=== PATIENT | male | born 1960 | race Caucasian/White ===

== ENCOUNTER → 2019-01-06 12:50 | Outpatient (CLI) | payer BC, SELFPAY ==
[2018-12-02 09:51] VITALS: BMI 33.6
--- NOTE | 2019-01-06 12:53 | ECHOD_ITS ---
Reason For Study: SOB Procedure This was a 2D Doppler, Color Flow transthoracic echocardiogram. Exam performed in department. Left Ventricle Moderate concentric left ventricular hypertrophy. The estimated ejection fraction is 65 %. Stage 2 diastolic dysfunction. No regional wall motion abnormalities noted. Right Ventricle Normal size and thickness. Normal systolic function. Atria The left atrium is mildly enlarged. Normal right atrium. Normal atrial septum. Mitral Valve The mitral valve is structurally normal. No prolapse or stenosis seen. Tricuspid Valve Normal tricuspid valve. Unable to estimate RV systolic pressure due to insufficient tricuspid regurgitant envelope. Aortic Valve Trisinus/trileaflet aortic valve. Mild diffuse aortic valve thickening. Trivial aortic valve insufficiency. Pulmonic Valve Normal pulmonic valve. Trivial pulmonic valve insufficiency. Great Vessels Moderately dilated aortic root. Mild atherosclerosis of the aortic arch. Normal inferior vena cava. Inferior vena cava collapse with sniff. Pericardium/Pleural No pericardial effusion. MMode/2D Measurements & Calculations LVIDd: 4.9 cm IVSd: 1.5 cm Ao root diam: 5.1 cm LVIDs: 2.4 cm LVPWd: 1.4 cm RVDd: 3.6 cm FS: 51.5 % LAV(MOD-bp): 64.9 ml LVAd ap4: 34.2 cm2 SV(MOD-sp4): 76.7 ml LAV(MOD-bp) Indexed: 28.5 ml/m2 EDV(MOD-sp4): 107.5 ml LAV(MOD-sp2): 62.7 ml EDV(sp4-el): 110.6 ml LAV(MOD-sp4): 64.5 ml LVAs ap4: 16.5 cm2 ESV(MOD-sp4): 30.8 ml ESV(sp4-el): 31.2 ml EF(MOD-sp4): 71.4 % EF(sp4-el): 71.8 % SV(sp4-el): 79.4 ml LA A4 area: 22.3 cm2 LA dimension(2D): 3.6 cm RA A4 area: 19.5 cm2 Doppler Measurements & Calculations MV E max luis carlos: 97.6 cm/sec Lat Peak E' Luis Carlos: 13.6 cm/sec Med Peak E' Luis Carlos: 9.6 cm/sec MV A max luis carlos: 55.9 cm/sec E/E' lat: 7.2 E/E' med: 10.2 MV E/A: 1.7 Ao V2 max: 161.0 cm/sec AI max luis carlos: 521.4 cm/sec LV V1 max: 139.4 cm/sec Ao max P.4 mmHg AI max P.8 mmHg LV V1 max P.8 mmHg AI dec slope: 158.7 cm/sec2 AI P1/2t: 962.5 msec PA V2 max: 76.1 cm/sec Interpretation Summary The estimated ejection fraction is 65 %. Moderate concentric left ventricular hypertrophy. Stage 2 diastolic dysfunction. The left atrium is mildly enlarged. Unable to estimate RV systolic pressure due to insufficient tricuspid regurgitant envelope. Trivial aortic valve insufficiency. Moderately dilated aortic root. Compared to echo report dated 04/27/2014, LV function has remained the same, but aortic root has increased from 4.2 to 5.1 cm. Consider CTA to confirm. Ordering Physician: Moises Mills Referring Physician: Mundo Fierro M.D. Performed By: Dalia Ponce RDCS
== END ==
PROVIDERS: Family Provider Internal Medicine; PCP Internal Medicine; Referring Provider Internal Medicine Cardiovascular Disease; Visit Provider Internal Medicine Cardiovascular Disease
DX: R06.02 Shortness of breath (principal); R06.09 Other forms of dyspnea; G47.33 Obstructive sleep apnea (adult) (pediatric); E66.9 Obesity, unspecified; I47.1 Supraventricular tachycardia; I48.0 Paroxysmal atrial fibrillation
CPT/HCPCS: 93306

== ENCOUNTER → 2019-01-12 12:16 | Outpatient (CLI) | payer BC, SELFPAY ==
[2018-12-02 09:51] VITALS: BMI 33.6
--- NOTE | 2019-01-12 12:21 | STE_ITS ---
Reason For Study: Chest Pain; Dyspnea Stress Results Protocol: Blu Protocol Maximum Predicted HR: 161 bpm Target HR: 137 bpm % Maximum Predicted HR: 80 % DurationHeart Rate Stage (mm:ss) (bpm) BP Comment Baseline 59 158/88No Chest Pain Blu Protocol Stage I 3:00 94 160/84No Chest Pain; Moderate Dyspnea Blu Protocol Stage II 3:00 129 190/82No Chest Pain; Severe Dyspnea Recovery 78 156/82No Chest Pain; No Dyspnea Stress Duration: 6:00 mm:ss Maximum Stress HR: 129 bpm METS: 7 Baseline Echocardiogram Findings The estimated ejection fraction is 65 %. Stress Echo Wall motion Data Resting WM Intermediate WM Stress WM Resting Wall Motion Wall Motion Stress No regional wall motion No regional wall motion abnormalities noted. abnormalities noted. EKG Data The baseline ECG displays normal sinus rhythm. The patient exercised according to the regular Blu protocol for a total duration of 6:00. The maximum heart rate attained was 162 beats per minute. This was 100% of maximum predicted heart rate. The patient exercised into stage 2 of the Blu protocol. During stress, there were no ST or T wave changes noted to suggest ischemia. No clinical angina was noted. Interpretation Summary The estimated ejection fraction is 65 %. Normal, adequate, treadmill echocardiogram. Negative for ischemia by EKG and echocardiographic criteria. No anginal symptoms noted. Rare PACs and a self terminating bursts of narrow complex tachycardia during recovery. Below average exercise capacity for age. Test terminated due to dyspnea. Final LVEF is 75%. No complications. Ordering Physician: Moises Mills Referring Physician: Mundo Fierro Performed By: Cassidy Verduzco, NAZARIO, RVT
== END ==
LOC: CVS 12:17
PROVIDERS: Family Provider Internal Medicine; PCP Internal Medicine; Referring Provider Internal Medicine Cardiovascular Disease; Visit Provider Internal Medicine Cardiovascular Disease
DX: I10 Essential (primary) hypertension (principal); F12.10 Cannabis abuse, uncomplicated; I48.0 Paroxysmal atrial fibrillation; R06.09 Other forms of dyspnea; Z72.0 Tobacco use
CPT/HCPCS: 93017; 93350

== ENCOUNTER → 2019-01-20 13:23 | Outpatient (CLI) | payer BC, SELFPAY ==
[2018-12-02 09:51] VITALS: BMI 33.6
--- NOTE | 2019-01-20 13:30 | CT_ITS ---
STUDY: CTA CHEST REASON FOR EXAM: Male, 59 years old. Aortic aneurysm. RADIATION DOSAGE (If Supplied By Facility): CTDIvol = ( 15.04 ) mGy, DLP = ( 603.18 ) mGycm TECHNIQUE: The examination was performed with the intravenous administration of 75mL Isovue-370 . Post-processing of the angiographic images was performed, with multiplanar reformation and 3D reconstruction. Individualized dose optimization techniques were used for this CT. COMPARISON: None. FINDINGS: Normal enhancement of the main pulmonary artery and right and left pulmonary arteries. Normal enhancement of the bilateral peripheral pulmonary arteries. There is no demonstrated pulmonary embolism. There is aneurysmal dilatation of the ascending aorta. The transverse diameter of the ascending aorta measures 45 mm's. There is no demonstrated aortic dissection. There are calcifications of the coronary arteries. Normal mediastinum. Normal hilar regions. Normal visualized trachea and bronchi. The lungs are well expanded. There are fibrotic densities in the periphery of the upper lungs. Normal pleura. Normal chest wall structures. There are degenerative changes of thoracic spine. Normal visualized upper abdomen. CT/CTA Chest W/WO Contrast IMPRESSION: Aneurysmal dilatation of the ascending aorta. Electronically Signed: Adam Che MD at 10:42 EDT , Service support ,
[2019-01-20 13:41] LABS: EGFR FINGERSTICK > 60.0000 mL/min (>60)
== END ==
LOC: CT 13:24
PROVIDERS: Family Provider Internal Medicine; PCP Internal Medicine; Referring Provider Internal Medicine Cardiovascular Disease; Visit Provider Internal Medicine Cardiovascular Disease
DX: I71.9 Aortic aneurysm of unspecified site, without rupture (principal)
CPT/HCPCS: 71275; Q9967; A4216

== ENCOUNTER 2019-01-24 12:04 | Emergency (ER) | payer BC, SELFPAY ==
[2018-12-02 09:51] VITALS: BMI 33.6
[2019-01-24 12:07] VITALS: BP 172/107; PULSE 57; RESP 13; TEMP 36.7; O2SAT 99; BMI 34.0
--- NOTE | 2019-01-24 12:19 | EKG12_ITS ---
Test Reason : CP Blood Pressure : / mmHG Vent. Rate : 058 BPM Atrial Rate : 058 BPM P-R Int : 168 ms QRS Dur : 106 ms QT Int : 426 ms P-R-T Axes : 058 066 074 degrees QTc Int : 418 ms Sinus bradycardia Otherwise normal ECG Confirmed by TI MILLS ([id number]), book editor FELIBERTO VIZCARRA ([id number]) on 01/31/2019 9:08:21 AM Referred By: Ti Mills Confirmed By:TI MILLS
--- NOTE | 2019-01-24 12:20 | RAD_ITS ---
STUDY: X-RAY CHEST REASON FOR EXAM: Male, 59 years old. Cough. Chest pain. TECHNIQUE: PA and lateral views of the chest. COMPARISON: Comparison is made with prior examination dated August 02, 2015. FINDINGS: EKG electrodes are seen. Scattered calcified granulomas. Hyperinflation. There is no demonstrated pleural abnormality. Normal size heart. Normal mediastinum and hillary. Normal visualized pulmonary arteries. There is atherosclerotic tortuosity of the aortic arch and descending thoracic aorta. There is demineralization of the osseous structures. Normal visualized ribs, clavicles, and shoulders. There is no demonstrated abnormality of the visualized soft tissue structures of the upper abdomen. RAD/Chest PA and Lateral IMPRESSION: Hyperinflation. No acute abnormality is seen. Electronically Signed: Ken Krishna, at 13:13 EDT , Service support ,
[2019-01-24] MEDS: Morphine 4 MG/ML Syringe IV (12:32)
[2019-01-24] MEDS: Ondansetron 4 MG/2 ML Vial IV (12:32)
[2019-01-24] MEDS: 0.9% Normal Saline 1,000 ML 1000 ML IV (12:33)
[2019-01-24] MEDS: Ipratropium/Albuterol Sulfate 3 ML AMPUL.NEB INHALATION (12:34)
[2019-01-24 12:36] VITALS: PULSE 66; RESP 0
[2019-01-24 12:38] LABS: Absolute Lymphocyte Count 1.64 X10^3/uL (0.83-4.51); Absolute Neutrophil Count 7.7 X10^3/uL (2.0-7.7); Basophil# 0.05 X10^3/uL; Basophil% 0.5 % (0-1); Eosinophil# 0.12 X10^3/uL; Eosinophils% 1.2 % (0-5); Hematocrit 49.1 % (40-54); Hemoglobin 16.5 g/dL (13.0-16.5); Lymphocyte # 1.64 X10^3/ul (4.0); Lymphocyte % 15.9 % (19-41); Mean Corp Hgb Conc 33.6 g/dL (32-36); Mean Corpuscular Hgb 29.8 pg (27.0-32.0); Mean Corpuscular Volume 88.8 fL (80-94); Mean Platelet Vol. 9.7 fl (6.2-12.0); Monocyte# 0.71 X10^3/uL; Monocyte% 6.9 % (0-10); NRBC Flagged by Analyzer 0 % (0-5); Neutrophil % 74.7 % (47-70); Platelet Count 208 K/mm3 (150-450); RBC Distribution Width CV 12.9 % (11.6-14.6); RBC Distribution Width SD 42.4 fl (35.1-43.9); Red Blood Count 5.53 M/mm3 (4.6-6.2); White Blood Count 10.3 K/mm3 (4.4-11.0)
[2019-01-24 12:52] LABS: AST(SGOT) 16 U/L (15-37); Alanine Aminotransfer ALT/SGPT 25 U/L (16-61); Alkaline Phosphatase 89 U/L (45-117); Anion Gap 4 (5-15); BUN 18 mg/dL (7-18); BUN/Creat Ratio 16.2 RATIO (10-20); Calcium,Total 9.2 mg/dL (8.5-10.1); Chloride 106 mmol/L (98-107); Creatinine, Serum 1.11 mg/dL (0.70-1.30); EST Glomerular Filtration Rate 72 mL/min (>60); Est Glom Filt Rate - Afr Amer 87 mL/min (>60); Estimated Creatinine Clearance 77.68 ml/min; Globulin 4.1 g/dL (2.2-4.2); Glucose 100 mg/dL (74-106); Potassium 4.3 mmol/L (3.5-5.1); Protein, Total 8.1 g/dL (6.4-8.2); Sodium Level 139 mmol/L (136-145)
[2019-01-24 13:41] VITALS: BP 173/96; PULSE 60; O2SAT 91
[2019-01-24 14:06] VITALS: BP 164/102; PULSE 70; O2SAT 90
[2019-01-24] MEDS: HYDROcodone Bitartrate/Apap 5/325 Tablet PO (14:13)
[2019-01-24 15:15] VITALS: BP 171/105; PULSE 68; O2SAT 94
--- NOTE | 2019-01-24 15:58 | ED.VIS.GEN ---
History of Present Illness Chief Complaint: Chest Pain Informant: Patient Onset: Yesterday Context: Gradual Onset Timing: Continuous Current Severity: Moderate Maximum Severity: Moderate Narrative: The patient presents to the emergency department with chest pain. He states since yesterday, he had a sharp, stabbing sensation in his left chest. It does not radiate anywhere. He has had a scant cough. Patient states that he has chronic pain in his back and in his right side. He states that he had a nephrectomy years ago for an 8 pound mass on his kidney. He states that he still chronic pain since then. He states however, this never been on the left side. Patient is currently following with Dr. Mills he has had significant outpatient work-up for chest pain. He had echocardiogram, stress test, and CTA all within the past month. He does have a small thoracic aortic aneurysm that is currently being followed. He denies any sudden change in the pain. He denies any fevers or chills. Prior similar symptoms: Yes Recent Illness/Hospitalization: Yes Past Medical History - Allergies and Home Meds Allergies/Adverse Reactions: Allergies aspirin Allergy (Verified 01/24/19 12:12) GI upset, hives Penicillins Allergy (Verified 01/24/19 12:12) GI upset, hives Primary Care Physician: Mundo Fierro MD [Primary Care Provider] - Prior records reviewed: Yes Surgical History: cholecystectomy, - - nephrectomy. Smoking Status: Current every day smoker - Family History Maternal Family History: Family History (Last Reviewed 12/01/18 @ 09:43 by Luana Barth) Mother CAD (coronary artery disease) Father CAD (coronary artery disease) Family History: Reports: No pertinent history Paternal Family History: Family History (Last Reviewed 12/01/18 @ 09:43 by Luana Barth) Mother CAD (coronary artery disease) Father CAD (coronary artery disease) Family History: Reports: No pertinent history Review of Systems General: Denies: Chills, Fever, Sweats Eyes: Denies: Visual changes - bilaterally, Diplopia ENT: Denies: Rhinorrhea, Sore throat Cardiovascular: Reports: Chest pain. Denies: Palpitations Respiratory: Reports: Cough. Denies: Dyspnea, Dyspnea on exertion Gastrointestinal: Denies: Abdominal pain, Nausea, Vomiting, Diarrhea, Melena, Hematochezia Genitourinary: Denies: Dysuria, Hematuria, Frequency Musculoskeletal: Denies: Back pain, Extremity Pain Skin: Denies: Rash, Wounds Neurological: Denies: Headache, Weakness, Numbness Physical Exam Vital Signs/Narrative: Vital Signs Temp Pulse Resp BP Pulse Ox 01/24/19 15:15 68 171/105 H 94 01/24/19 14:06 70 164/102 H 90 01/24/19 13:41 60 173/96 H 91 01/24/19 12:36 66 0 L 01/24/19 12:07 98.0 F 57 L 13 172/107 H 99 Inital Vital Signs reviewed: Yes General: Well nourished, Well developed, No Acute Distress Head: Normocephalic, Atraumatic Eyes: Perrl, EOMI ENT: Moist mucous membranes, No rhinorrhea Neck: Supple, Nontender Cardiovascular: Regular rate, Regular rhythm, No murmurs Respiratory: No distress, Wheezing, Chest tenderness Abdomen: Soft, Nontender, Nondistended, Normal bowel sounds Back: Nontender, Normal Inspection Extremities: Nontender, No edema Skin: Normal color, No rash Neurological: Alert, Oriented x3, Cranial nerves II-XII grossly intact, Normal Strength, Normal Sensation Psychological: Normal affect, Normal Mood Diagnostic/Tx/Re-eval Chest X-Ray - ED: 2 View, Normal, Heart, Lungs, Mediastinum, Bony Structures Clinical Impression(s) from Imaging Studies Chest X-Ray 01/24/19 12:20 IMPRESSION: Hyperinflation. No acute abnormality is seen. Electronically Signed: Ken Krishna, at 13:13 EDT , Service support , Abnormal Lab Results 01/24/19 01/24/19 01/24/19 12:15 12:15 15:08 WBC 10.3 RBC 5.53 Hgb 16.5 Hct 49.1 MCV 88.8 MCH 29.8 MCHC 33.6 RDW Std Deviation 42.4 RDW Coeff of Calli 12.9 Plt Count 208 MPV 9.7 Immature Gran % (Auto) 0.800 Neut % (Auto) 74.7 H Lymph % (Auto) 15.9 L [place] % (Auto) 6.9 Eos % (Auto) 1.2 Baso % (Auto) 0.5 Absolute Neuts (auto) 7.7 Absolute Lymphs (auto) 1.64 Nucleated RBC % 0 Sodium 139 Potassium 4.3 Chloride 106 Carbon Dioxide 29.0 Anion Gap 4 L BUN 18 Creatinine 1.11 Estim Creat Clear Calc 77.68 Est GFR (MDRD) Af Amer 87 Est GFR (MDRD) Non-Af 72 BUN/Creatinine Ratio 16.2 Glucose 100 Calcium 9.2 Total Bilirubin 0.40 AST 16 ALT 25 Alkaline Phosphatase 89 Troponin I < 0.015 < 0.015 Total Protein 8.1 Albumin 4.0 Globulin 4.1 Albumin/Globulin Ratio 1.0 - Rhythm Strip Rhythm Strip: Sinus Rhythm Rate: 80 Ectopy: None - EKG Initial EKG Interpretation: Sinus Rhythm, No Acute Injury Pattern Prior: Unchanged - Medical Decision Making The patient's pain is reproducible. He had a recent negative stress test. He did have wheezing in all lung loera. He was given nebulized breathing treatments with improvement of his aeration. EKG shows no evidence of acute ischemia. Initial cardiac enzymes were negative. The patient was given morphine with really no improvement. He was given [place] and was resting comfortably. Chest x-ray shows no evidence of volume overload or large cardiac silhouette. I did review the patient's CTA from 6 days ago. This does demonstrate his thoracic aneurysm, but no dissection or thrombus. My suspicion is that this is noncardiac in nature. The patient did have recent negative stress test within the past month. He denies any exertional component to his pain. Repeat cardiac enzymes were obtained and continued to be negative. I am going to treat the patient with prednisone and a muscle relaxer. He will be discharged home. Impression 1. Cough 2. Chest wall pain ED Disposition - Plan for ED Patient: Instructions: CHEST PAIN, NonCardiac Prescriptions: Prednisone [Deltasone] 60 mg PO DAILY #15 tab Prescription Printed cycloBENZAPRine HCl [Flexeril] 10 mg PO TID PRN #20 tab PRN Reason: Muscle Spasm Prescription Printed Referrals: Mundo Fierro MD [Primary Care Provider] -
[2019-01-24 16:07] VITALS: BP 161/98; PULSE 68; RESP 17; O2SAT 95
--- NOTE | 2019-01-24 16:07 | ED.RN ---
IV DC'ED, CATHETER INTACT, SMALL GAUZE DRESSING PLACED. DISCHARGE INSTRUCTIONS GIVEN TO AND REVIEWED WITH PATIENT, PATIENT DENIES QUESTIONS OR CONCERNS AND VOICES UNDERSTANDING OF DISCHARGE INSTRUCTIONS. PT AMBULATES OUT OF ROOM WITHOUT DIFFICULTY.
== END 2019-01-24 16:08 | disposition home or self-care (01) ==
PROVIDERS: Emergency Provider Emergency Medicine; Family Provider Internal Medicine; PCP Internal Medicine
DX: R05 Cough (principal); R07.89 Other chest pain; F17.200 Nicotine dependence, unspecified, uncomplicated; Z90.5 Acquired absence of kidney
CPT/HCPCS: 71046; 80053; 84484; 85025; 93005; 94640; 96361; 96374; 96375; 99285; J2405

== ENCOUNTER 2019-11-13 13:27 | Emergency (ER) | payer BC, SELFPAY ==
[2019-11-13 13:29] VITALS: BP 142/84; PULSE 64; PULSE 65; RESP 17; TEMP 36.2; O2SAT 95; BMI 33.5
--- NOTE | 2019-11-13 13:43 | RAD_ITS ---
STUDY: X-RAY - LUMBAR SPINE REASON FOR EXAM: Male, 59 years old. fell off a swing yesterday, landed on his tailbone -- pain TECHNIQUE: 3 view(s) of the lumbar spine were obtained. COMPARISON: None FINDINGS: Normal lumbar lordosis. There is no substantial scoliosis. There is a normal alignment of the vertebrae. There is diffuse demineralization with multi-level endplate spondylosis. Normal disc space heights. There is no demonstrated fracture. Facet arthropathy in the lower lumbar spine noted. There are surgical clips of the abdomen and pelvis. There is atherosclerosis of the lower abdominal aorta and iliac arteries. RAD/Lumbar Spine 2 or 3 Views IMPRESSION: No compression fracture. Electronically Signed: Randy Garcia MD (Brooks) at 14:31 EDT , Service support ,
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
[2019-11-13] MEDS: Ondansetron 4 MG/2 ML Vial IV (13:55)
[2019-11-13] MEDS: morphine 8 MG/ML Syringe IV (13:55)
[2019-11-13 14:45] VITALS: BP 164/87; PULSE 69; RESP 22; TEMP 36.7; O2SAT 94
--- NOTE | 2019-11-13 14:46 | EKG12_ITS ---
Test Reason : CP Blood Pressure : / mmHG Vent. Rate : 065 BPM Atrial Rate : 065 BPM P-R Int : 184 ms QRS Dur : 110 ms QT Int : 432 ms P-R-T Axes : 056 063 064 degrees QTc Int : 449 ms Normal sinus rhythm Normal ECG Confirmed by TIMOTEO HARDY, AMANDA ([id number]), editorial intern IVET HALE ([id number]) on 11/14/2019 2:45:10 PM Referred By: CG/UG Confirmed By:AMANDA MAHMOOD MD
--- NOTE | 2019-11-13 14:49 | CT_ITS ---
STUDY: CTA CHEST REASON FOR EXAM: Male, 59 years old. ACUTE CHEST PAIN, RT NEPHRECTOMY, CHOLECYSTECTOMY RADIATION DOSAGE (If Supplied By Facility): CTDIvol = ( 19.65 ) mGy, DLP = ( 544.95 ) mGycm TECHNIQUE: The examination was performed with the intravenous administration of IV 100mL Isovue-370. Post-processing of the angiographic images was performed, with multiplanar reformation and 3D reconstruction. Individualized dose optimization techniques were used for this CT. COMPARISON: None. FINDINGS: Normal enhancement of the main pulmonary artery and right and left pulmonary arteries. Normal enhancement of the bilateral peripheral pulmonary arteries. There is no demonstrated pulmonary embolism. There is ectasia of the ascending thoracic aorta with axial diameter measuring up to 4.4 cm. There is no demonstrated aortic dissection. Normal heart and pericardium. There are calcifications of the coronary arteries. Normal mediastinum. Normal hilar regions. Normal visualized trachea and bronchi. There are patchy groundglass and reticular opacities in the bilateral lower lungs, dependent. There are mild emphysematous changes. Normal pleura. Normal chest wall structures. Normal osseous structures. Normal visualized upper abdomen. CT/CTA Chest W/WO Contrast IMPRESSION: 1. No central or segmental pulmonary embolism. 2. Bilateral lower lobe dependent groundglass opacity and reticulation may suggest atelectasis versus pneumonitis/edema. Electronically Signed: Randy Garcia MD (Brooks) at 16:04 EDT , Service support ,
[2019-11-13 15:08] LABS: Absolute Lymphocyte Count 2.55 X10^3/uL (0.83-4.51); Absolute Neutrophil Count 9.4 X10^3/uL (2.0-7.7); Basophil# 0.04 X10^3/uL; Basophil% 0.3 % (0-1); Eosinophil# 0.17 X10^3/uL; Eosinophils% 1.3 % (0-5); Hematocrit 46.5 % (40-54); Hemoglobin 15.7 g/dL (13.0-16.5); Lymphocyte # 2.55 X10^3/ul (4.0); Lymphocyte % 19.1 % (19-41); Mean Corp Hgb Conc 33.8 g/dL (32-36); Mean Corpuscular Volume 88.7 fL (80-94); Monocyte# 1.17 X10^3/uL; Monocyte% 8.8 % (0-10); NRBC Flagged by Analyzer 0 % (0-5); Neutrophil # 9.36 X10^3/uL (2.7-7.7); Platelet Count 214 K/mm3 (150-450); RBC Distribution Width CV 13.4 % (11.6-14.6); RBC Distribution Width SD 43.5 fl (35.1-43.9); Red Blood Count 5.24 M/mm3 (4.6-6.2); White Blood Count 13.4 K/mm3 (4.4-11.0)
[2019-11-13 15:35] LABS: Anion Gap 7 (5-15); BUN 12 mg/dL (7-18); BUN/Creat Ratio 11.9 RATIO (10-20); Calcium,Total 8.9 mg/dL (8.5-10.1); Chloride 105 mmol/L (98-107); Creatinine, Serum 1.01 mg/dL (0.70-1.30); EST Glomerular Filtration Rate 80 mL/min (>60); Est Glom Filt Rate - Afr Amer 97 mL/min (>60); Estimated Creatinine Clearance 85.37 ml/min; Glucose 109 mg/dL (74-106); Potassium 4.1 mmol/L (3.5-5.1); Sodium Level 139 mmol/L (136-145)
[2019-11-13 16:52] VITALS: BP 127/80; PULSE 61; RESP 19; O2SAT 96
[2019-11-13 17:23] LABS: Lactic Acid 0.9 mmol/L (0.4-1.9)
[2019-11-13 17:32] LABS: Probe Check PASS; Specimen Processing Control PASS
--- NOTE | 2019-11-13 17:36 | ED.RN ---
Patient ambulated around room with a portable pulse ox machine. Patient's pulse ox was 93 to 94%.
== END 2019-11-13 18:02 | disposition home or self-care (01) ==
PROVIDERS: Emergency Provider Emergency Medicine; PCP Internal Medicine
DX: R91.8 Other nonspecific abnormal finding of lung field (principal); M54.5 Low back pain; R20.0 Anesthesia of skin; W17.89XA Other fall from one level to another, initial encounter; Y93.9 Activity, unspecified; Y92.9 Unspecified place or not applicable; E66.9 Obesity, unspecified; I10 Essential (primary) hypertension; I48.0 Paroxysmal atrial fibrillation; I47.1 Supraventricular tachycardia; G47.33 Obstructive sleep apnea (adult) (pediatric); Z86.73 Personal history of transient ischemic attack (TIA), and cerebral infarction without residual deficits; Z90.5 Acquired absence of kidney; Z79.899 Other long term (current) drug therapy; F17.200 Nicotine dependence, unspecified, uncomplicated
CPT/HCPCS: 71275; 72100; 80048; 83605; 84484; 85025; 87040; 87633; 87635; 93005; 94799; 96374; 96375; 99285; Q9967; A4216; J2405; U0003

== ENCOUNTER → 2020-07-19 | Outpatient (CLI) | payer BC, SELFPAY ==
[2020-07-19 09:45] LABS: Pathologist Comment May follow
[2020-07-19 12:17] LABS: RBC /Synovial Fluid 0.031 10^6/uL (0); Synovial Fld Mononuclear WBC % 50.5 %; Synovial Fld Polynuclear WBC # 0.175 10^3/uL; Synovial Fld Polynuclear WBC % 49.5 %
[2020-07-19 12:18] LABS: AUTO B FLUID DILUENT BKGD CT WBC <0.1 RBC <0.01 (W<.1,R<.01); Appearance /Synovial Fluid Sl Cl (CLEAR); Color / Synovial Fluid Red (Pale Yellow); Source / Synovial Fluid LEFT ELBOW; Source- Body Fluid SYNOVIAL
[2020-07-19 12:54] LABS: Body Fluid QC Type(s) BF1Q,BF2Q; Lymph 18 %; Monocyte /Synovial Fluid 32 %; Neutrophil 50 % (0-25)
[2020-07-20 12:40] LABS: Pathologist Review Reviewed
== END | disposition home or self-care (01) ==
LOC: LABSPEC 09:34
PROVIDERS: PCP Internal Medicine; Referring Provider Physician Assistant; Visit Provider Physician Assistant
DX: M70.22 Olecranon bursitis, left elbow (principal)
CPT/HCPCS: 87015; 87070; 87075; 87101; 87116; 87205; 87206; 89050; 89051; 89060

== ENCOUNTER 2020-08-25 10:23 | Emergency (ER) | payer BC, SELFPAY ==
[2020-08-25 10:24] VITALS: BP 173/93; PULSE 78; RESP 20; TEMP 36.8; O2SAT 99; BMI 33.7
--- NOTE | 2020-08-25 10:46 | EKG12_ITS ---
Test Reason : Blood Pressure : / mmHG Vent. Rate : 062 BPM Atrial Rate : 062 BPM P-R Int : 178 ms QRS Dur : 110 ms QT Int : 406 ms P-R-T Axes : 051 055 067 degrees QTc Int : 412 ms Normal sinus rhythm Normal ECG Confirmed by AMANDA MAHMOOD MD ([id number]), associate editor FELIBERTO VIZCARRA ([id number]) on 08/28/2020 1:47:05 PM Referred By: RHINA Confirmed By:AMANDA MAHMOOD MD
--- NOTE | 2020-08-25 10:47 | EX.ED.DYSGE1 ---
HPI History of Present Illness Chief Complaint: Hypertension Informant: patient Onset/Context/Timing Onset: Days (3) Context: Gradual Onset Timing: Intermittent Quality - All: similar prior headaches and achy/aching Location: Left side of head and retro-orbital at times Current Severity: Moderate Maximum Severity: Moderate Worsened by: Blood pressure being up Relieved by: Blood pressure being down Associated Symptoms Associated Symptoms: Chest pain left side Narrative Narrative: Patient states he takes Procardia for blood pressure has been compliant with it with no changes recently, and has been dealing with blood pressure fluctuations for 21 years along with the same symptoms that he presented with today, which include left-sided chest pain and a left-sided headache. He denies any shortness of breath, syncope or near syncope, focal neurologic symptoms, vomiting, vision changes. He states over the last 3 days he has been having the symptoms and increased blood pressure in the 170s systolic, and he attributes this to lots of increased stress lately. He states he gets stressed and aggravated very easily, which is apparent during the interview, and just getting the patient to describe some of his medical history and the symptoms that he presenting with this morning. He states as a result, this has caused his blood pressure to increase over the past couple of decades giving him the symptoms, and he is presenting for treatment at this time. He states he has a history of a right nephrectomy because it had a mass, when asked if he was on lisinopril he states he refuses to go on anything that may mess with his kidney. Of note, the patient describes his chest discomfort as heart pain, and swelling of just the outside of my heart. He states he has a history of this as well as thoracic aortic aneurysm, but no coronary disease or stents that he knows of, but this is the reason that his chest is currently hurting. He states this is all related to my blood pressure and that it has happened for the last 21 years. [facility] Medical History Alcohol abuse Chronic back pain CVA (cerebral vascular accident) Dyspnea on exertion H/O unilateral nephrectomy Hypertension Marijuana abuse Nicotine abuse Obesity (BMI 30.0-34.9) Obstructive sleep apnea Paroxysmal atrial fibrillation Paroxysmal supraventricular tachycardia Shortness of breath Home Medications omega-3 fatty acids 1,000 mg capsule 1,000 mg PO QDAY 06/08/17 [History Last Taken Unknown] super beta prostate 800 mg PO DAILY 06/08/17 [History Last Taken Unknown] diltiazem HCl 240 mg PO QHS 11/13/19 [History Last Taken Unknown] gabapentin 300 mg PO TID 11/13/19 [History Last Taken Unknown] clonidine HCl 0.2 mg PO BID PRN #15 tab 08/25/20 [Rx Last Taken Unknown] Allergy/AdvReac Type Severity Reaction Status Date / Time aspirin Allergy GI upset, Verified 08/25/20 10:24 hives Penicillins Allergy GI upset, Verified 08/25/20 10:24 hives Family History Mother CAD (coronary artery disease) [place] in her 30's w/ coronary stents Father CAD (coronary artery disease) [place] in his 40's Surgical History History of back surgery Hx of cholecystectomy (~2014) Social History Smoking Status: Current every day smoker tobacco type: pipe alcohol intake: current alcohol intake frequency: a few times a week Alcohol type: beer substance use type: marijuana ROS ROS ED Constitutional Constitutional ED: Denies chills or fever(s) Eyes Eyes: Denies change in vision or diplopia ENT ENT ED: Denies rhinorrhea or sore throat Cardiovascular Cardiovascular: Reports as per HPI and chest pain; Denies palpitations Respiratory/Chest Respiratory/Chest: Denies cough or dyspnea Gastrointestinal Gastrointestinal: Denies abdominal pain, diarrhea, nausea or vomiting Genitourinary Genitourinary ED: Denies dysuria or hematuria Musculoskeletal Musculoskeletal: Reports back pain and other Details: Patient states his back pain is chronic, more in his right flank, ever since his nephrectomy, it is more when he stretches the scar tissue in that area, if he is sitting comfortably like he is now he does not have the pain. ; Denies neck pain Integumentary Denies abscess or rash Neurologic Neurologic: Denies confusion, paresthesias or weakness Psychiatric Psychiatric: Reports irritability; Denies anxiety or suicidal thoughts EXAM Physical Exam Const Vital Signs: 08/25/20 10:24 08/25/20 11:09 08/25/20 11:24 Temperature 98.3 F Temperature Source Temporal Pulse Rate 78 Respiratory Rate 20 H Respiratory Effort Normal Non-Labored Respiratory Pattern Normal Blood Pressure 173/93 H 154/62 H Blood Pressure Mean 119 92 Pulse Ox 99 Oxygen Delivery Method Room Air 08/25/20 12:55 Temperature Temperature Source Pulse Rate 50 L Respiratory Rate Respiratory Effort Respiratory Pattern Blood Pressure 110/72 Blood Pressure Mean 84 Pulse Ox Oxygen Delivery Method Positive well nourished and well developed General Appearance ED: well developed and NAD HEENT Reports moist mucous membranes normocephalic and atraumatic Teeth and Gingiva: poor dentition Eyes PERRL and EOMs intact bilaterally Neck full ROM and supple Resp normal respiratory effort and clear to auscultation bilaterally Cardio regular rate, regular rhythm and no murmurs GI non-tender and non-distended Auscultation: normoactive bowel sounds Palpation: soft Back/Spine no CVA tenderness General Back: other FROM Extremity normal to inspection General Extremety ED: Negative for edema, pulses abnormal or tenderness General Extremity: Negative for edema or pulses abnormal Neuro oriented x3, CN's II-XII intact bilaterally and no sensory deficits noted Sensorium / Orientation: awake and alert Motor Exam: strength 5/5 throughout Psych Activity / Motor Behavior: appropriate eye contact Mood & Affect: labile affect and other Easily irritated, becomes verbally loud and aggressive but able to be redirected Thought Process: normal thought process Thought Content: normal thought content Attention / Concentration: attention grossly intact Memory / Cognition: memory grossly intact Skin no rashes or lesions noted and no wounds MDM MDM MDM Narrative Medical decision making narrative: Work-up is unremarkable as I discussed with the patient, I am okay with his renal function. He was given clonidine 0.3 mg after we discussed options and he was okay with that, he is very paranoid about taking new medications because he is so worried about the one kidney that he has left. After an hour observation is blood pressure came down to 154/62. He said his headache was improved but still there, his chest is feeling a little sore. He was offered some Tylenol but again was wary about taking that because he has a history of stomach issues when he takes Tylenol and he is asking for it in liquid form which was given. His had felt better and on reevaluation his blood pressure is 110/72. He is comfortable going home and feeling better. 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 Lab Data Attestation: I reviewed the patient's lab results. Labs: Laboratory Results - last 24 hr 08/25/20 08/25/20 10:57 10:57 WBC 10.8 RBC 5.41 Hgb 16.0 Hct 48.4 MCV 89.5 MCH 29.6 MCHC 33.1 RDW Std Deviation 42.0 RDW Coeff of Calli 12.9 Plt Count 207 MPV 9.6 Immature Gran % (Auto) 0.800 Neut % (Auto) 70.1 H Lymph % (Auto) 21.2 [place] % (Auto) 6.3 Eos % (Auto) 1.3 Baso % (Auto) 0.3 Absolute Neuts (auto) 7.6 Absolute Lymphs (auto) 2.28 Nucleated RBC % 0 Sodium 137 Potassium 3.6 Chloride 105 Carbon Dioxide 27.0 Anion Gap 5 BUN 13 Creatinine 1.10 Estim Creat Clear Calc 77.40 Est GFR (MDRD) Af Amer 87 Est GFR (MDRD) Non-Af 72 BUN/Creatinine Ratio 11.8 Glucose 136 H Calcium 9.2 Troponin I < 0.015 Discharge Plan Triage Chief Complaint: Hypertension ED Provider: Adam Gray Dx/Rx/DC Orders Clinical Impression: Episode of hypertension, Chest pain Instructions: ED High Blood Pressure ... Prescriptions: New clonidine HCl 0.2 mg tablet 0.2 mg PO BID PRN (Reason: SBP > 160) Qty: 15 RF: 0 No Action omega-3 fatty acids 1,000 mg capsule 1,000 mg PO QDAY RF: 0 super beta prostate 800 mg PO DAILY RF: 0 diltiazem HCl 240 MG capsule,extended release 24hr 240 mg PO QHS RF: 0 gabapentin 300 MG capsule 300 mg PO TID RF: 0 Primary Care Provider: Mundo Fierro Referrals: Mundo Fierro MD [Primary Care Provider] - (next week) Disposition Disposition: Home, self care
[2020-08-25 11:06] LABS: Absolute Lymphocyte Count 2.28 X10^3/uL (0.83-4.51); Absolute Neutrophil Count 7.6 X10^3/uL (2.0-7.7); Basophil# 0.03 X10^3/uL; Basophil% 0.3 % (0-1); Eosinophil# 0.14 X10^3/uL; Eosinophils% 1.3 % (0-5); Hematocrit 48.4 % (40-54); Lymphocyte # 2.28 X10^3/ul (0.83-4.51); Lymphocyte % 21.2 % (19-41); Mean Corp Hgb Conc 33.1 g/dL (32-36); Mean Corpuscular Hgb 29.6 pg (27.0-32.0); Mean Corpuscular Volume 89.5 fL (80-94); Mean Platelet Vol. 9.6 fl (6.2-12.0); Monocyte# 0.68 X10^3/uL; Monocyte% 6.3 % (0-10); NRBC Flagged by Analyzer 0 % (0-5); Neutrophil # 7.55 X10^3/uL (2.7-7.7); Neutrophil % 70.1 % (47-70); Platelet Count 207 K/mm3 (150-450); RBC Distribution Width CV 12.9 % (11.6-14.6); Red Blood Count 5.41 M/mm3 (4.6-6.2); White Blood Count 10.8 K/mm3 (4.4-11.0)
[2020-08-25] MEDS: Clonidine HCl 0.1 MG, Clonidine HCl 0.2 MG 0.3 MG PO (11:08)
[2020-08-25 11:22] LABS: Anion Gap 5 (5-15); BUN 13 mg/dL (7-18); BUN/Creat Ratio 11.8 RATIO (10-20); Calcium,Total 9.2 mg/dL (8.5-10.1); Chloride 105 mmol/L (98-107); EST Glomerular Filtration Rate 72 mL/min (>60); Est Glom Filt Rate - Afr Amer 87 mL/min (>60); Glucose 136 mg/dL (74-106); Potassium 3.6 mmol/L (3.5-5.1); Sodium Level 137 mmol/L (136-145)
[2020-08-25 11:24] VITALS: BP 154/62
[2020-08-25] MEDS: Acetaminophen 650 MG/20 ML UDC PO (12:03)
[2020-08-25 12:55] VITALS: BP 110/72; PULSE 50
== END 2020-08-25 13:20 | disposition home or self-care (01) ==
PROVIDERS: Emergency Provider Emergency Medicine; PCP Internal Medicine
DX: I10 Essential (primary) hypertension (principal); R07.9 Chest pain, unspecified; G89.29 Other chronic pain; I48.0 Paroxysmal atrial fibrillation; I47.1 Supraventricular tachycardia; E66.9 Obesity, unspecified; Z68.30 Body mass index [BMI] 30.0-30.9, adult; G47.33 Obstructive sleep apnea (adult) (pediatric); Z86.73 Personal history of transient ischemic attack (TIA), and cerebral infarction without residual deficits; Z90.5 Acquired absence of kidney; Z79.899 Other long term (current) drug therapy; F12.10 Cannabis abuse, uncomplicated; F17.290 Nicotine dependence, other tobacco product, uncomplicated
CPT/HCPCS: 80048; 84484; 85025; 93005; 99284

== ENCOUNTER → 2020-10-11 07:52 | Outpatient (CLI) | payer BC, MEDICAID, SELFPAY ==
[2020-09-26 08:46] VITALS: BMI 34.2
--- NOTE | 2020-10-11 08:11 | ECHOD_ITS ---
Reason For Study: HTN, Thoracic Ao aneurysm Procedure This was a 2D Doppler, Color Flow transthoracic echocardiogram. Myocardial strain analysis was performed in this exam to aid in the assessment of cardiac function. Exam performed in department. Left Ventricle Normal LV size. Mild concentric left ventricular hypertrophy. Left ventricular systolic function is normal. The estimated ejection fraction is 60 %. Stage 2 diastolic dysfunction. No regional wall motion abnormalities noted. Right Ventricle Normal RV size. Normal systolic function. Atria Normal left atrium. Normal right atrium. Mitral Valve Normal mitral valve. Tricuspid Valve Normal tricuspid valve. Aortic Valve Normal aortic valve. Trisinus/trileaflet aortic valve. Mild (1+) eccentric aortic valve insufficiency. Pulmonic Valve Normal pulmonic valve. Great Vessels Mildly dilated aortic root. The pulmonary artery is normal size. Normal inferior vena cava. Pericardium/Pleural No pericardial effusion. MMode/2D Measurements & Calculations LVIDd: 4.6 cm IVSd: 1.5 cm LVOT diam: 2.5 cm LVIDs: 2.4 cm LVPWd: 1.2 cm LVOT area: 4.9 cm2 RVDd: 3.6 cm FS: 48.8 % Ao root diam: 4.9 cm LAV(MOD-bp): 73.4 ml LVAd ap4: 34.0 cm2 LAV(MOD-bp) Indexed: 31.3 ml/m2 LVLd ap4: 9.1 cm LAV(MOD-sp2): 100.8 ml EDV(MOD-sp4): 105.2 ml LAV(MOD-sp4): 47.7 ml EDV(sp4-el): 108.0 ml LVAs ap4: 15.1 cm2 LVLs ap4: 7.2 cm ESV(MOD-sp4): 27.5 ml ESV(sp4-el): 26.8 ml EF(MOD-sp4): 73.9 % EF(sp4-el): 75.2 % LVAd ap2: 37.2 cm2 SV(MOD-sp4): 77.7 ml SV(MOD-sp2): 97.7 ml LVLd ap2: 9.2 cm EDV(MOD-sp2): 126.7 ml EDV(sp2-el): 128.4 ml LVAs ap2: 15.5 cm2 LVLs ap2: 7.5 cm ESV(MOD-sp2): 29.0 ml ESV(sp2-el): 27.4 ml EF(MOD-sp2): 77.1 % SV(sp4-el): 81.2 ml LA dimension(2D): 3.4 cm LA A4 area: 17.6 cm2 RA A4 area: 15.3 cm2 Doppler Measurements & Calculations MV E max luis carlos: 111.4 cm/sec Lat Peak E' Luis Carlos: 14.7 cm/sec Med Peak E' Luis Carlos: 8.0 cm/sec MV A max luis carlos: 59.7 cm/sec E/E' lat: 7.6 E/E' med: 14.0 MV E/A: 1.9 Ao V2 max: 203.8 cm/sec AI max luis carlos: 499.8 cm/sec LV V1 max: 167.1 cm/sec Ao max P.6 mmHg AI max P.0 mmHg LV V1 max P.2 mmHg Ao V2 mean: 130.0 cm/sec AI dec slope: 296.8 cm/sec2 LV V1 mean P.9 mmHg Ao mean P.8 mmHg AI P1/2t: 493.1 msec LV V1 mean: 114.1 cm/sec Ao V2 VTI: 40.2 cm LV V1 VTI: 32.9 cm JANY(I,D): 4.0 cm2 JANY(V,D): 4.1 cm2 SV(LVOT): 162.6 ml PA V2 max: 119.2 cm/sec ECHO/Echo Complete Interpretation Summary Normal LV size. Left ventricular systolic function is normal. The estimated ejection fraction is 60 %. Stage 2 diastolic dysfunction. Mild concentric left ventricular hypertrophy. The global longitudinal strain is normal. The global longitudinal strain = -23. 4 % (normal). Ordering Physician: Canelo Allison Referring Physician: Mundo Fierro M.D. Performed By: Dalia Ponce RDCS
== END ==
PROVIDERS: PCP Internal Medicine; Referring Provider Internal Medicine Cardiovascular Disease; Visit Provider Internal Medicine Cardiovascular Disease
DX: I71.2 Thoracic aortic aneurysm, without rupture (principal); I10 Essential (primary) hypertension
CPT/HCPCS: 93306

== ENCOUNTER 2021-02-10 13:05 | Emergency (ER) | payer MEDICAID, SELFPAY ==
[2021-02-10 13:13] VITALS: BP 167/98; PULSE 84; RESP 17; TEMP 36.7; O2SAT 94; BMI 37.4
--- NOTE | 2021-02-10 13:15 | RAD_ITS ---
INDICATION: chest pain EXAMINATION/TECHNIQUE: X-RAY - XR Chest 1 View COMPARISON: 01/24/2019 FINDINGS: LIFE-SUPPORT AND LINES: 1. None HEART AND VESSELS: Cardiac silhouette is upper limit of normal without change. No evidence congestive failure. LUNGS AND PLEURAL SPACES: Lungs are clear. No focal infiltrate, consolidation or effusions. No evidence of pneumothorax. There is minimal atelectasis and scar at LEFT lung base without change MEDIASTINUM AND HILAR REGIONS: No masses adenopathy noted. No areas of calcification. Visualized upper airway is normal in position. BONY ELEMENTS: No acute bony changes noted. RAD/Chest 1 View (Portable) IMPRESSION: 1. Stable borderline cardiomegaly. 2. No evidence of acute cardiopulmonary process Electronically Signed: Lonny Lucas MD at 14:29 EST Tel , Service support ,
--- NOTE | 2021-02-10 13:15 | EKG12_ITS ---
Test Reason : CP Blood Pressure : / mmHG Vent. Rate : 075 BPM Atrial Rate : 075 BPM P-R Int : 170 ms QRS Dur : 126 ms QT Int : 384 ms P-R-T Axes : 057 066 063 degrees QTc Int : 428 ms Normal sinus rhythm Right bundle branch block Abnormal ECG Confirmed by TIMOTEO HARDY, AMANDA ([id number]), digital editor FELIBERTO VIZCARRA ([id number]) on 02/11/2021 11:17:52 AM Referred By: JAKE Confirmed By:AMANDA MAHMOOD MD
--- NOTE | 2021-02-10 13:23 | EDS_ITS ---
HPI History of Present Illness Chief Complaint: Chest Pain Informant: patient Onset/Context/Timing Onset: Month(s) Activity at onset: gradual Timing: Continuous Quality: Positive for Dull Location: Right Chest and Left Chest Current Severity: Mild Maximum Severity: Mild Worsened By: Nothing Relieved By: Nothing Narrative Narrative: 61-year-old male was [facility] today had an episode of double vision and was evaluated by [facility] They want him to be evaluated. He states he always has some dizziness at times has double vision as not new he basically had Covid several months ago was not hospitalized at that time. Patient states that he always has chest soreness and has for months. He has a 24/7 365 days a year. It is really no different. He denies any back pain. He does have a known history of a thoracic aneurysm. Prior Similar Symptoms: Yes Recent Illness/Hospitalization: No CVD Risk Factors: Positive for Hypertension and Smoking PE Risk Factors: Negative for Recent Travel/Surgery, Recent Immobilization, P rior DVT or PE, Cancer and OCP + Smoking + >/=35 TAD Risk Factors: Negative for Marfan's Syndrome PFSH [facility] Medical History Alcohol abuse Ascending aortic aneurysm Chronic back pain CVA (cerebral vascular accident) Dyspnea on exertion Essential (primary) hypertension Frequent headaches H/O unilateral nephrectomy History of fractured rib Marijuana abuse Nicotine abuse Obesity (BMI 30.0-34.9) Obstructive sleep apnea Paroxysmal atrial fibrillation Paroxysmal supraventricular tachycardia Shortness of breath Home Medications diltiazem HCl 240 mg PO QHS 11/13/19 [History Last Taken Unknown] gabapentin 300 mg PO DAILY PRN 02/10/21 [History Last Taken Unknown] Allergy/AdvReac Type Severity Reaction Status Date / Time aspirin Allergy GI upset, Verified 02/10/21 13:10 hives Penicillins Allergy GI upset, Verified 02/10/21 13:10 hives Family History Mother CAD (coronary artery disease) [place] in her 30's w/ coronary stents Father CAD (coronary artery disease) [place] in his 40's Surgical History History of back surgery History of right nephrectomy (1998) Hx of cholecystectomy (2015) Social History Smoking Status: Current every day smoker tobacco type: pipe alcohol intake: current alcohol intake frequency: holidays/special occasions only Alcohol type: wine substance use type: marijuana ROS ROS ED ROS Narrative Denies recent illness or change. He has chronic chest discomfort. He describes it as soreness. Review of Systems ROS Unobtainable: Denies due to encephalopathy Constitutional Constitutional ED: Denies fever(s) Eyes Eyes: Denies none ENT ENT ED: Denies ear pain Cardiovascular Cardiovascular: Reports as per HPI and chest pain Respiratory/Chest Respiratory/Chest: Denies dyspnea Gastrointestinal Gastrointestinal: Denies abdominal pain, diarrhea, nausea or vomiting Genitourinary Genitourinary ED: Denies dysuria Musculoskeletal Musculoskeletal: Denies myalgias Integumentary Denies rash Neurologic Neurologic: Denies headache(s) Psychiatric Psychiatric: Denies depression Endocrine Endocrinology: Denies polyuria Hematologic/Lymphatic Hematologic/Lymphatic: Denies easy bruising Allergic/Immunologic Allergic/Immunologic ED: Denies urticaria EXAM Physical Exam Narrative Exam Narrative: 59-year-old male no acute distress vital signs stable afebrile. Pulse ox 94% on room air. H EENT exam unremarkable. Neck nontender. Lungs clear to auscultation bilaterally. Heart regular rhythm rate about 80 no murmur. Abdomen soft nondistended normal bowel sounds no peritoneal signs. Moving all 4 extremities. Calves are nontender without edema or cords. 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 Back nontender. No back pain. Neurologically is awake and alert moving all 4 extremities. No focal motor deficits. Const Vital Signs: 02/10/21 13:13 02/10/21 13:30 02/10/21 14:41 Temperature 98.0 F Temperature Source Oral Pulse Rate 84 63 Respiratory Rate 17 28 H Respiratory Effort Short of Breath Respiratory Pattern Normal Blood Pressure 167/98 H 140/85 H Blood Pressure Mean 121 103 Pulse Ox 94 94 94 Oxygen Delivery Method Room Air Room Air Room Air Positive well nourished and well developed; Negative for cachectic, contractures or unkempt General Appearance ED: well developed and NAD; Negative for unkempt, cachectic or contractures Nutritional Appearance: Negative for cachectic HEENT Reports moist mucous membranes normocephalic and atraumatic; Negative for trauma or tenderness Eyes PERRL and EOMs intact bilaterally Neck no lymphadenopathy, supple and no JVD General: Negative for tenderness Chest Wall inspection of chest normal and palpation of chest normal Resp normal respiratory effort and clear to auscultation bilaterally Effort and Inspection: respiratory distress Auscultation: Negative for rales, rhonchi or wheezes Cardio regular rate, regular rhythm, S1 normal heart sound, S2 normal heart sound and no murmurs GI normal to inspection, nondistended, normoactive bowel sounds, soft to palpation, non-tender, non-distended and no masses Auscultation: Negative for hyperactive bowel sounds Palpation: Negative for splenomegaly or mass Back/Spine no CVA tenderness Extremity normal to inspection General Extremety ED: Negative for edema or tenderness General Extremity: Negative for edema Neuro oriented x3 Sensorium / Orientation: awake, alert, oriented to person, oriented to place and oriented to time Motor Exam: strength 5/5 throughout Psych mental status grossly normal Appearance: Negative for unkempt Mood & Affect: Negative for depressed or tearful Skin no rashes or lesions noted and no wounds Heart Score History: Slightly/Non-Suspicious ECG: Normal Age: >45 - <65 years Risk Factors: 1 or 2 Risk Factors Troponin: </= Normal Limit Score: 2 MDM MDM MDM Narrative Medical decision making narrative: 61-year-old male with with chronic chest discomfort is been going on for months. He has a known history of a AAA that is recently been reevaluated. His pain is not exertional. Ist is not pleuritic. He has never had a DVT or PE. He will undergo cardiac work-up. Repeat exam patient is doing well at 3:03 PM. None change. Went over his test results. He is comfortable being discharged home. Lab Data Attestation: I reviewed the patient's lab results. Lab results narrative: CBC White count 11. Hemoglobin 15.6. Electrolytes unremarkable gap of 6 normal BUN and creatinine. Normal high-sensitivity troponin of 24. Labs: Laboratory Results - last 24 hr 02/10/21 02/10/21 13:25 13:25 WBC 11.7 H RBC 5.24 Hgb 15.6 Hct 45.7 MCV 87.2 MCH 29.8 MCHC 34.1 RDW Std Deviation 41.3 RDW Coeff of Calli 13.0 Plt Count 218 MPV 9.4 Immature Gran % (Auto) 1.000 H Neut % (Auto) 75.0 H Lymph % (Auto) 15.7 L [place] % (Auto) 6.8 Eos % (Auto) 1.2 Baso % (Auto) 0.3 Absolute Neuts (auto) 8.8 H Absolute Lymphs (auto) 1.83 Nucleated RBC % 0 Sodium 137 Potassium 3.8 Chloride 106 Carbon Dioxide 25.0 Anion Gap 6 BUN 13 Creatinine 1.20 Estim Creat Clear Calc 70.06 Est GFR (MDRD) Af Amer 79 Est GFR (MDRD) Non-Af 65 BUN/Creatinine Ratio 10.8 Glucose 127 H Calcium 8.8 Troponin I High Sens 24 Radiography Chest X-Ray - ED: 1 View, Read by ED Physician, Read by Radiologist, Heart, Lungs, Mediastinum, Bony Structures, No Acute Disease and Chronic Changes Diagnostic Testing: Clinical Impression(s) from Imaging Studies Chest X-Ray 02/10/21 13:15 IMPRESSION: 1. Stable borderline cardiomegaly. 2. No evidence of acute cardiopulmonary process Electronically Signed: Lonny Lucas MD at 14:29 EST Tel , Service support , Single view portable chest x-ray interpreted both by myself and radiologist shows no acute abnormality. Chronic cardiomegaly. Rhythm Strip Rhythm Strip: Sinus Rhythm Rate: 75 Ectopy: None EKG Initial EKG: Attestation: I personally reviewed and interpreted this EKG as follows: Interpretation: Sinus Rhythm and No Acute Injury Pattern Comments: Normal sinus rhythm rate of 75 right bundle branch block unchanged from her prior EKG from July except for the bundle branch block. Discharge Plan Triage Chief Complaint: Chest Pain ED Provider: Luis Miguel Mclean Dx/Rx/DC Orders Clinical Impression: Chest pain Instructions: ED Chest Pain, Uncertain Cause Prescriptions: No Action diltiazem HCl 240 MG capsule,extended release 24hr 240 mg PO QHS RF: 0 gabapentin 300 mg capsule 300 mg PO DAILY PRN (Reason: Pain) RF: 0 Primary Care Provider: Mundo Fierro Referrals: Mundo Fierro MD [Primary Care Provider] - As Needed Disposition Disposition: Home, Self Care
[2021-02-10 13:30] VITALS: O2SAT 94
[2021-02-10 13:33] LABS: Absolute Lymphocyte Count 1.83 X10^3/uL (0.83-4.51); Absolute Neutrophil Count 8.8 X10^3/uL (2.0-7.7); Basophil# 0.03 X10^3/uL; Basophil% 0.3 % (0-1); Eosinophil# 0.14 X10^3/uL; Eosinophils% 1.2 % (0-5); Hematocrit 45.7 % (40-54); Hemoglobin 15.6 g/dL (13.0-16.5); Lymphocyte # 1.83 X10^3/ul (0.83-4.51); Lymphocyte % 15.7 % (19-41); Mean Corp Hgb Conc 34.1 g/dL (32-36); Mean Corpuscular Hgb 29.8 pg (27.0-32.0); Mean Corpuscular Volume 87.2 fL (80-94); Mean Platelet Vol. 9.4 fl (6.2-12.0); Monocyte# 0.79 X10^3/uL; Monocyte% 6.8 % (0-10); NRBC Flagged by Analyzer 0 % (0-5); Neutrophil # 8.75 X10^3/uL (2.7-7.7); Platelet Count 218 K/mm3 (150-450); RBC Distribution Width SD 41.3 fl (35.1-43.9); Red Blood Count 5.24 M/mm3 (4.6-6.2); White Blood Count 11.7 K/mm3 (4.4-11.0)
[2021-02-10 13:53] LABS: Anion Gap 6 (5-15); BUN 13 mg/dL (7-18); BUN/Creat Ratio 10.8 RATIO (10-20); Calcium,Total 8.8 mg/dL (8.5-10.1); Chloride 106 mmol/L (98-107); EST Glomerular Filtration Rate 65 mL/min (>60); Est Glom Filt Rate - Afr Amer 79 mL/min (>60); Estimated Creatinine Clearance 70.06 ml/min; Glucose 127 mg/dL (74-106); Potassium 3.8 mmol/L (3.5-5.1); Sodium Level 137 mmol/L (136-145); Troponin-I HS 24 pg/mL (3.0-78.0)
[2021-02-10 14:41] VITALS: BP 140/85; PULSE 63; RESP 28; O2SAT 94
[2021-02-10 15:06] VITALS: BP 138/91; PULSE 74; RESP 18; O2SAT 95
[2021-02-10 15:07] VITALS: BP 138/91; PULSE 67; RESP 18; O2SAT 95
== END 2021-02-10 15:17 | disposition home or self-care (01) ==
PROVIDERS: Emergency Provider Emergency Medicine; PCP Internal Medicine
DX: R07.89 Other chest pain (principal); I45.10 Unspecified right bundle-branch block; I71.4 Abdominal aortic aneurysm, without rupture; E66.9 Obesity, unspecified; Z68.37 Body mass index [BMI] 37.0-37.9, adult; I47.1 Supraventricular tachycardia; I10 Essential (primary) hypertension; I48.0 Paroxysmal atrial fibrillation; G47.33 Obstructive sleep apnea (adult) (pediatric); G89.29 Other chronic pain; Z86.73 Personal history of transient ischemic attack (TIA), and cerebral infarction without residual deficits; Z90.5 Acquired absence of kidney; F12.90 Cannabis use, unspecified, uncomplicated; Z79.899 Other long term (current) drug therapy
CPT/HCPCS: 71045; 80048; 84484; 85025; 93005; 99284

== ENCOUNTER → 2021-03-04 15:56 | Outpatient (CLI) | payer MEDICAID, SELFPAY ==
[2021-03-04 16:44] LABS: BNP,B-Type NATRIURETIC PEPTIDE 16.5 pg/mL (0-100)
== END ==
PROVIDERS: PCP Internal Medicine; Referring Provider Physician Assistant Medical; Visit Provider Physician Assistant Medical
DX: R07.9 Chest pain, unspecified (principal); R06.09 Other forms of dyspnea; I48.0 Paroxysmal atrial fibrillation; I71.2 Thoracic aortic aneurysm, without rupture; I10 Essential (primary) hypertension
CPT/HCPCS: 36415; 83880; 86141

== ENCOUNTER → 2021-03-18 05:30 | Outpatient (CLI) | payer MEDICAID, SELFPAY ==
--- NOTE | 2021-03-18 12:58 | STRESSREP ---
Stress Test Report Pharmacologic myocardial perfusion stress test. 61-year-old man with a history of chest discomfort. Stress protocol: Resting EKG demonstrates normal sinus rhythm with a rate of 68 bpm normal intervals are noted resting blood pressure is 148/94 mmHg. 0.4 mg of regadenoson was infused per usual protocol followed by rapid intravenous saline flush injection continuous EKG monitoring was performed. At rest there were no ST or T wave changes noted suggest abnormal flow reserve and at peak infusion nonspecific ST changes were noted with did not meet the criteria for ischemia. The maximum heart rate attained was noted to be 108 bpm which was 68% of max impact at heart rate the maximum workload was 1 metabolic equivalent. The peak blood pressure was 148/94 mmHg. Myocardial perfusion protocol. 14.9 mCi of technetium 99m sestamibi was injected at rest. 0.4 mg of regadenoson was infused per usual protocol. At peak infusion 44.7 mCi of technetium 99m sestamibi was injected stress images were obtained stress and rest images were reconstructed and compared in the short axis vertical long horizontal long axis. Gated images were also obtained. Perfusion SPECT analysis: Review of the stress images demonstrate normal uptake of tracer noted in all areas of the myocardium. The resting images similarly demonstrate normal uptake of tracer noted in all areas of the myocardium. No areas of reversibility are noted to suggest ischemia. Gated SPECT analysis: The gated ejection fraction is 69%. Conclusion: Normal pharmacologic myocardial perfusion stress test. Preserved ejection fraction.
== END ==
PROVIDERS: Referring Provider Physician Assistant Medical; Visit Provider Physician Assistant Medical
DX: R07.9 Chest pain, unspecified (principal); I71.2 Thoracic aortic aneurysm, without rupture; R06.09 Other forms of dyspnea; I10 Essential (primary) hypertension; I48.0 Paroxysmal atrial fibrillation
CPT/HCPCS: 78452; 93017; 93225; 93226; A9500; A4216; J2785

== ENCOUNTER 2022-05-29 09:23 | Emergency (ER) | payer MEDICAID, SELFPAY ==
[2022-05-29 09:24] VITALS: BP 172/95; PULSE 61; RESP 18; TEMP 36.4; O2SAT 98
--- NOTE | 2022-05-29 09:46 | EKG12_ITS ---
Test Reason : CP Blood Pressure : / mmHG Vent. Rate : 060 BPM Atrial Rate : 060 BPM P-R Int : 184 ms QRS Dur : 106 ms QT Int : 422 ms P-R-T Axes : 049 063 075 degrees QTc Int : 422 ms Normal sinus rhythm Normal ECG Confirmed by SACHA HARDY, KEILY ([id number]), commercial production editor FELIBERTO VIZCARRA ([id number]) on 06/02/2022 11:03:21 AM Referred By: STUART Confirmed By:KEILY GONCALVES MD
[2022-05-29 09:55] VITALS: BP 135/87; PULSE 63; RESP 18; O2SAT 96; BMI 42.3
--- NOTE | 2022-05-29 09:55 | RAD_ITS ---
STUDY: X-RAY CHEST REASON FOR EXAM: Male, 62 years old. Chest pain TECHNIQUE: Single AP portable view of the chest. COMPARISON: Comparison is made with prior examination February 10, 2021. FINDINGS: EKG electrodes are seen. Hyperinflation. There is no demonstrated pleural abnormality. There is moderate cardiac enlargement. Normal mediastinum and hillary. Normal visualized pulmonary arteries. There is atherosclerotic tortuosity of the aortic arch and descending thoracic aorta. There are diffuse degenerative changes of the visualized thoracic spine. Normal visualized ribs, clavicles, and shoulders. There is no demonstrated abnormality of the visualized soft tissue structures of the upper abdomen. RAD/Chest 1 View (Portable) IMPRESSION: Moderate degree of cardiomegaly. The lungs are clear. Electronically Signed: Ken Krishna MD at 10:17 [facility] ,
[2022-05-29 10:00] VITALS: O2SAT 96
[2022-05-29 10:12] LABS: Absolute Lymphocyte Count 1.47 X10^3/uL (0.83-4.51); Basophil# 0.05 X10^3/uL; Basophil% 0.5 % (0-1); Eosinophil# 0.19 X10^3/uL; Hematocrit 43.5 % (40-54); Hemoglobin 14.4 g/dL (13.0-16.5); Lymphocyte # 1.47 X10^3/ul (0.83-4.51); Lymphocyte % 15.3 % (19-41); Mean Corp Hgb Conc 33.1 g/dL (32-36); Mean Corpuscular Hgb 29.3 pg (27.0-32.0); Mean Corpuscular Volume 88.4 fL (80-94); Mean Platelet Vol. 10.2 fl (6.2-12.0); Monocyte# 0.83 X10^3/uL; Monocyte% 8.7 % (0-10); NRBC Flagged by Analyzer 0 % (0-5); Neutrophil # 6.98 X10^3/uL (2.7-7.7); Neutrophil % 72.9 % (47-70); Platelet Count 212 K/mm3 (150-450); RBC Distribution Width CV 12.9 % (11.6-14.6); RBC Distribution Width SD 41.6 fl (35.1-43.9); Red Blood Count 4.92 M/mm3 (4.6-6.2); White Blood Count 9.6 K/mm3 (4.4-11.0)
[2022-05-29 10:35] LABS: Anion Gap 6 (5-15); BUN 14 mg/dL (7-18); BUN/Creat Ratio 13.6 RATIO (10-20); Calcium,Total 9.4 mg/dL (8.5-10.1); Chloride 105 mmol/L (98-107); Creatinine, Serum 1.03 mg/dL (0.70-1.30); EST Glomerular Filtration Rate 77 mL/min (>60); Est Glom Filt Rate - Afr Amer 94 mL/min (>60); Estimated Creatinine Clearance 80.57 ml/min; Glucose 121 mg/dL (74-106); Potassium 4.3 mmol/L (3.5-5.1); Sodium Level 140 mmol/L (136-145); Troponin-I HS (w/2H Reflex) 28 pg/mL (3.0-78.0)
--- NOTE | 2022-05-29 10:45 | CT_ITS ---
STUDY: CTA CHEST REASON FOR EXAM: Male, 62 years old. CP, abn echo, eval for ao dissection RADIATION DOSAGE (If Supplied By Facility): CTDIvol = ( 17.41 ) mGy, DLP = ( 613.47 ) mGycm TECHNIQUE: The examination was performed with the intravenous administration of IV 100mL Isovue-370. Post-processing of the angiographic images was performed, with multiplanar reformation and 3D reconstruction. Individualized dose optimization techniques were used for this CT. COMPARISON: Comparison is made with prior study dated November 13, 2019. FINDINGS: Normal enhancement of the main pulmonary artery and right and left pulmonary arteries. Normal enhancement of the bilateral peripheral pulmonary arteries. There is no demonstrated pulmonary embolism. There is aneurysmal dilatation of the ascending aorta. The transverse diameter of the ascending aorta measures 46.1 mm''s. There is no demonstrated aortic dissection. There are calcifications of the coronary arteries. There is cardiomegaly. There are visualized mediastinal lymph nodes, which are within normal size limits, and with normal morphology. Normal hilar regions. Normal visualized trachea and bronchi. The lungs are well expanded. There is a 2.2 cm x 1.6 cm nodular density with surrounding areas of bronchiectasis in the inferior aspect of the lingular segment of the left upper lobe. This most likely represents scarring although a six-month follow-up CT scan is recommended. Normal pleura. Normal chest wall structures. Normal osseous structures. Fatty infiltration of the liver. Small hiatal hernia. CT/CTA Chest W/WO Contrast IMPRESSION: No evidence of bone embolism. Dilatation of the ascending thoracic aorta. 2.2; 0.6 cm pleural-based nodule in the inferior aspect of the lingular segment of the left upper lobe suggestive of scarring although a follow-up CT scan in 6 months is recommended for further evaluation. Electronically Signed: Ken Krishna MD at 11:27 EST ,
[2022-05-29 11:15] VITALS: BP 133/78; PULSE 57; RESP 16; O2SAT 96
[2022-05-29 12:09] LABS: Reflex Troponin-HS? (from REC) Y
[2022-05-29 12:51] LABS: Troponin-I HS 27 pg/mL (3.0-78.0)
--- NOTE | 2022-05-29 13:37 | EDS_ITS ---
HPI History of Present Illness Chief Complaint: Chest Pain Informant: patient Onset/Context/Timing Onset: Today Activity at onset: gradual Timing: Continuous Quality: Positive for Aching Location: Substernal Worsened By: Nothing Relieved By: Nothing Associated Symptoms: Positive for Nausea; Negative for Vomiting, Diaphoresis, Dyspnea, Cough, Fever, Lightheadedness, Acid Reflux or Palpitations Narrative Narrative: Patient is with chest pain that began today. Patient states it feels like he has arthritis in my breastbone. Patient states he gets short of breath whenever he lays down. Patient admits to some nausea but denies any vomiting. Patient denies any diaphoresis. Patient denies any cough or fever. Patient states nothing makes it worse and nothing makes it better. Patient describes his pain as aching. Patient states it has been constant. Patient states he was getting a ultrasound of his heart today and they told him to come to the emergency department. CVD Risk Factors: Positive for Hypertension and Family History 1' </=55; Negative for Diabetes, Hypercholesterolemia or Smoking PE Risk Factors: Negative for Recent Travel/Surgery, Recent Immobilization, [place] or DVT or PE, Cancer or OCP + Smoking + >/=35 [facility] Medical History Alcohol abuse Ascending aortic aneurysm Chronic back pain CVA (cerebral vascular accident) Dyspnea on exertion Essential (primary) hypertension Frequent headaches H/O unilateral nephrectomy History of fractured rib Marijuana abuse Nicotine abuse Obesity (BMI 30.0-34.9) Obstructive sleep apnea Paroxysmal atrial fibrillation Paroxysmal supraventricular tachycardia Shortness of breath Home Medications diltiazem HCl 360 mg capsule,extended release 24 hr 360 mg PO DAILY 05/29/22 [History Last Taken Unknown] doxazosin 2 mg tablet 2 mg PO DAILY 05/29/22 [History Last Taken Unknown] Allergy/AdvReac Type Severity Reaction Status Date / Time aspirin Allergy GI upset, Verified 03/04/21 15:13 hives Penicillins Allergy GI upset, Verified 03/04/21 15:13 hives Family History Mother CAD (coronary artery disease) PR in her 30's w/ coronary stents Father CAD (coronary artery disease) PR in his 40's Surgical History History of back surgery History of right nephrectomy (1998) Hx of cholecystectomy (2014) Social History Smoking Status: Former smoker alcohol intake: current alcohol intake frequency: holidays/special occasions only Alcohol type: wine substance use type: marijuana ROS ROS ED Constitutional Constitutional ED: Denies chills or fever(s) Eyes Eyes: Denies blurry vision or change in vision ENT ENT ED: Denies rhinorrhea or sore throat Cardiovascular Cardiovascular: Reports chest pain; Denies palpitations Respiratory/Chest Respiratory/Chest: Denies cough or dyspnea Gastrointestinal Gastrointestinal: Reports nausea; Denies abdominal pain or vomiting Genitourinary Genitourinary ED: Denies dysuria or hematuria Musculoskeletal Musculoskeletal: Reports back pain and neck pain Integumentary Denies abscess or rash Neurologic Neurologic: Denies headache(s) or weakness Allergic/Immunologic Allergic/Immunologic ED: Denies mouth swelling or urticaria EXAM Physical Exam Const Vital Signs: 05/29/22 09:24 05/29/22 09:55 05/29/22 09:55 Temperature 97.6 F L Temperature Source Temporal Pulse Rate 61 63 Respiratory Rate 18 18 Respiratory Effort Normal Respiratory Pattern Normal Blood Pressure 172/95 H 135/87 H Blood Pressure Mean 120 103 Pulse Ox 98 96 Oxygen Delivery Method Room Air Room Air 05/29/22 10:00 05/29/22 11:15 Temperature Temperature Source Pulse Rate 57 L Respiratory Rate 16 Respiratory Effort Respiratory Pattern Blood Pressure 133/78 H Blood Pressure Mean 96 Pulse Ox 96 96 Oxygen Delivery Method Room Air Room Air Positive well nourished, well developed and obese General Appearance ED: well developed and NAD Nutritional Appearance: obese HEENT normocephalic and atraumatic Eyes PERRL and EOMs intact bilaterally Neck supple and no JVD Chest Wall palpation of chest normal Resp normal respiratory effort and clear to auscultation bilaterally Effort and Inspection: Negative for respiratory distress Cardio regular rate, regular rhythm and no murmurs GI normal to inspection, nondistended, normoactive bowel sounds, soft to palpation, non-tender and non-distended Extremity normal to inspection General Extremety ED: Negative for edema or tenderness General Extremity: Negative for edema Neuro oriented x3, CN's II-XII intact bilaterally and no sensory deficits noted Sensorium / Orientation: awake and alert Motor Exam: strength 5/5 throughout Psych mental status grossly normal Heart Score History: Slightly/Non-Suspicious ECG: Normal Age: >45 - <65 years Risk Factors: 1 or 2 Risk Factors Troponin: </= Normal Limit Score: 2 MDM MDM MDM Narrative Medical decision making narrative: Differential diagnosis includes pulmonary embolism, aortic dissection, cardiac dysrhythmia, cardiac ischemia, pneumonia, and pneumothorax. EKG will be obtained to assess for cardiac ischemia and cardiac dysrhythmia. CTA of the chest will be obtained to assess for pulmonary embolism and aortic dissection. Chest x-ray will be obtained to assess for pneumonia and congestive heart failure. CBC will be obtained to assess for leukocytosis and anemia. Basic metabolic profile will be obtained to assess for electrolyte abnormality and renal function. High-sensitivity troponin will be obtained to assess for cardiac ischemia. 2-hour repeat high-sensitivity troponin will be obtained to assess for ongoing cardiac ischemia. Lab Data Attestation: I reviewed the patient's lab results. Lab results narrative: CBC was reviewed and was within normal limits. Basic metabolic profile was reviewed and was within normal limits. High-sensitivity troponin was reviewed and was normal at 28. 2-hour repeat high-sensitivity troponin was reviewed and was normal at 27. Labs: Laboratory Results - last 24 hr 05/29/22 05/29/22 05/29/22 10:00 10:00 12:20 WBC 9.6 RBC 4.92 Hgb 14.4 Hct 43.5 MCV 88.4 MCH 29.3 MCHC 33.1 RDW Std Deviation 41.6 RDW Coeff of Calli 12.9 Plt Count 212 MPV 10.2 Immature Gran % (Auto) 0.600 Neut % (Auto) 72.9 H Lymph % (Auto) 15.3 L [place] % (Auto) 8.7 Eos % (Auto) 2.0 Baso % (Auto) 0.5 Absolute Neuts (auto) 7.0 Absolute Lymphs (auto) 1.47 Nucleated RBC % 0 Sodium 140 Potassium 4.3 Chloride 105 Carbon Dioxide 29.0 Anion Gap 6 BUN 14 Creatinine 1.03 Estim Creat Clear Calc 80.57 Est GFR (MDRD) Af Amer 94 Est GFR (MDRD) Non-Af 77 BUN/Creatinine Ratio 13.6 Glucose 121 H Calcium 9.4 Troponin I High Sens 28 27 Radiography Chest X-Ray - ED: 1 View, Read by ED Physician, Read by Radiologist and No Acute Disease CTA PE Study: No Evidence of PE and No Evidence of Dissection Diagnostic Testing: Clinical Impression(s) from Imaging Studies Chest X-Ray 05/29/22 09:55 IMPRESSION: Moderate degree of cardiomegaly. The lungs are clear. Electronically Signed: Ken Krishna MD at 10:17 EST , Chest CTA 05/29/22 10:45 IMPRESSION: No evidence of bone embolism. Dilatation of the ascending thoracic aorta. 2.2; 0.6 cm pleural-based nodule in the inferior aspect of the lingular segment of the left upper lobe suggestive of scarring although a follow-up CT scan in 6 months is recommended for further evaluation. Electronically Signed: Ken Krishna MD at 11:27 EST , Portable 1 view chest x-ray was obtained. On my independent interpretation, lung loera are clear. There is moderate cardiomegaly. Bony thorax is normal. There is no acute process noted. Radiologist also interpreted the x-ray and agrees. CTA of the chest was obtained. There is no evidence of pulmonary embolism. There is dilation of the ascending thoracic aorta. There is no evidence of aortic dissection however. There is a 0.6 cm pleural-based nodule in the inferior aspect of the lingular segment of the left upper lobe suggestive of scarring. This was interpreted by the radiologist and was also independently interpreted by myself. Differential Diagnosis Chest pain/SOB: pulmonary embolism Reason(s) PE less likely: Positive for Well's <3, not tachycardic and not hypoxic, ACS ACS: Positive for no evidence of ACS based on cardiac biomarkers, EKG without ischemia and history not suggestive of ischemia pain, pneumothorax Reason(s) pneumothorax less likely: Positive for bilateral breath sounds and [employer] withhout PTX, pneumonia Reason(s) pneumonia less likely: Positive for no infiltrate on CXR, no elevation in WBC count, no noted fever and symptoms not consistent with acute infection, aortic dissection Reason(s) Aortic dissection less likely:: Positive for normal neurological exam, no ripping/tearing pain and no pain to back and CHF Reason(s) CHF less likely: Positive for no significant peripheral edema and no evidence of fluid overload on CXR Treatment and Re-Evaluation :: Patient is feeling better on reevaluation. Patient wants to go home. Patient has a HEART score of 2. Patient was advised this is low risk for acute cardiac event. Patient was instructed to follow-up with his primary care physician in 5 to 7 days. Patient understood and was agreeable with the plan. All questions were answered. Discharge Plan Triage Chief Complaint: Chest Pain ED Provider: Gregory Austin Dx/Rx/DC Orders Clinical Impression: Chest pain, Ascending aortic aneurysm Prescriptions: No Action diltiazem HCl 360 mg capsule,extended release 24hr 360 mg PO DAILY doxazosin 2 mg tablet 2 mg PO DAILY Primary Care Provider: Mundo Fierro Referrals: Mundo Fierro MD [Primary Care Provider] - 3-5 Days Disposition Disposition: Home, Self Care
[2022-05-29 14:00] VITALS: BP 134/75
== END 2022-05-29 14:00 | disposition home or self-care (01) ==
PROVIDERS: Emergency Provider Emergency Medicine; PCP Internal Medicine; Visit Provider Emergency Medicine
DX: R07.9 Chest pain, unspecified (principal); I71.21 Aneurysm of the ascending aorta, without rupture; I10 Essential (primary) hypertension; Z87.891 Personal history of nicotine dependence; Z79.899 Other long term (current) drug therapy
CPT/HCPCS: 71045; 71275; 80048; 84484; 85025; 93005; 99284; Q9967; A4216

== ENCOUNTER → 2023-04-03 | Outpatient (CLI) | payer MEDICARE, SELFPAY ==
--- NOTE | 2023-04-03 15:33 | CT_ITS ---
STUDY: CTA CHEST REASON FOR EXAM: Male, 63 years old. pulmonary nodule/ AAA RADIATION DOSAGE (If Supplied By Facility): CTDIvol = ( 18.73 ) mGy, DLP = ( 954.14 ) mGycm TECHNIQUE: The examination was performed with the intravenous administration of IV 100mL Isovue-370. Post-processing of the angiographic images was performed, with multiplanar reformation and 3D reconstruction. Individualized dose optimization techniques were used for this CT. COMPARISON: FINDINGS: Normal enhancement of the main pulmonary artery and right and left pulmonary arteries. Normal enhancement of the bilateral peripheral pulmonary arteries. There is no demonstrated pulmonary embolism. Dilated ascending aorta measuring 4.7 cm. There is no demonstrated aortic dissection. Normal heart and pericardium. Coronary arterial calcifications are present. Normal mediastinum. Normal hilar regions. Normal visualized trachea and bronchi. Mild atelectasis at the lingular segment and the right middle lobe . Normal pleura. Normal chest wall structures. Old right rib fractures. Fatty liver. CT/CTA Chest W/WO Contrast IMPRESSION: No demonstrated pulmonary embolism or arterial dissection. Mild atelectasis at the lingular segment and the right middle lobe . Fatty liver. Dilated ascending aorta. Electronically Signed: Dayo Anderson DO at 16:48 EST ,
--- OUTSIDE RECORDS SUMMARY | 2023-04-03 15:50 | XMS RPT_ITS | CCD ---
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 04/25/2019 Severe sleep apnea 07/25/2014 07/25/2014 Cholelithiasis 07/17/2014 10/27/2017 Abdominal pain 07/17/2014 10/27/2017 Hypercalciuria 04/22/2011 12/29/2019 Kidney stones 04/11/2011 12/29/2019 Abnormal PSA 04/11/2011 09/01/2018 documented as of this encounter (statuses as of 12/05/2021) [facility] History of Past illness Narrative* Problem Noted Date Resolved Date Obesity, Class II, BMI 35-39.9 01/02/2021 0 10/09/2021 Upper back pain 05/09/2019 10/09/2021 Neck pain 05/09/2019 10/09/2021 Obesity, Class I, BMI 30-34.9 04/25/2019 Severe sleep apnea 07/25/2014 07/25/2014 Cholelithiasis 07/17/2014 10/27/2017 Abdominal pain 07/17/2014 10/27/2017 Hypercalciuria 04/22/2011 12/29/2019 Kidney stones 04/11/2011 12/29/2019 Abnormal PSA 04/11/2011 09/01/2018 documented as of this encounter (statuses as of 01/10/2022) [facility] History of Past illness Narrative* Problem Noted Date Resolved Date Obesity, Class II, BMI 35-39.9 01/02/2021 0 10/09/2021 Upper back pain 05/09/2019 10/09/2021 Neck pain 05/09/2019 10/09/2021 Obesity, Class I, BMI 30-34.9 04/25/2019 Severe sleep apnea 07/25/2014 07/25/2014 Cholelithiasis 07/17/2014 10/27/2017 Abdominal pain 07/17/2014 10/27/2017 Hypercalciuria 04/22/2011 12/29/2019 Kidney stones 04/11/2011 12/29/2019 Abnormal PSA 04/11/2011 09/01/2018 documented as of this encounter (statuses as of 03/12/2022) [facility] History of Past illness Narrative* Problem Noted Date Resolved Date Obesity, Class II, BMI 35-39.9 01/02/2021 0 10/09/2021 Upper back pain 05/09/2019 10/09/2021 Neck pain 05/09/2019 10/09/2021 Obesity, Class I, BMI 30-34.9 04/25/2019 Severe sleep apnea 07/25/2014 07/25/2014 Cholelithiasis 07/17/2014 10/27/2017 Abdominal pain 07/17/2014 10/27/2017 Hypercalciuria 04/22/2011 12/29/2019 Kidney stones 04/11/2011 12/29/2019 Abnormal PSA 04/11/2011 09/01/2018 documented as of this encounter (statuses as of 04/05/2022) [facility] History of Past illness Narrative* Problem Noted Date Resolved Date Obesity, Class II, BMI 35-39.9 01/02/2021 0 10/09/2021 Upper back pain 05/09/2019 10/09/2021 Neck pain 05/09/2019 10/09/2021 Obesity, Class I, BMI 30-34.9 04/25/2019 Severe sleep apnea 07/25/2014 07/25/2014 Cholelithiasis 07/17/2014 10/27/2017 Abdominal pain 07/17/2014 10/27/2017 Hypercalciuria 04/22/2011 12/29/2019 Kidney stones 04/11/2011 12/29/2019 Abnormal PSA 04/11/2011 09/01/2018 documented as of this encounter (statuses as of 04/24/2022) [facility] History of Past illness Narrative* Problem Noted Date Resolved Date Obesity, Class II, BMI 35-39.9 01/02/2021 0 10/09/2021 Upper back pain 05/09/2019 10/09/2021 Neck pain 05/09/2019 10/09/2021 Obesity, Class I, BMI 30-34.9 04/25/2019 Severe sleep apnea 07/25/2014 07/25/2014 Cholelithiasis 07/17/2014 10/27/2017 Abdominal pain 07/17/2014 10/27/2017 Hypercalciuria 04/22/2011 12/29/2019 Kidney stones 04/11/2011 12/29/2019 Abnormal PSA 04/11/2011 09/01/2018 documented as of this encounter (statuses as of 07/04/2022) [facility] History of Past illness Narrative* Problem Noted Date Resolved Date Obesity, Class II, BMI 35-39.9 01/02/2021 0 10/09/2021 Upper back pain 05/09/2019 10/09/2021 Neck pain 05/09/2019 10/09/2021 Obesity, Class I, BMI 30-34.9 04/25/2019 Severe sleep apnea 07/25/2014 07/25/2014 Cholelithiasis 07/17/2014 10/27/2017 Abdominal pain 07/17/2014 10/27/2017 Hypercalciuria 04/22/2011 12/29/2019 Kidney stones 04/11/2011 12/29/2019 Abnormal PSA 04/11/2011 09/01/2018 documented as of this encounter (statuses as of 07/07/2022) [facility] History of Past illness Narrative* Problem Noted Date Resolved Date Obesity, Class II, BMI 35-39.9 01/02/2021 0 10/09/2021 Upper back pain 05/09/2019 10/09/2021 Neck pain 05/09/2019 10/09/2021 Obesity, Class I, BMI 30-34.9 04/25/2019 Severe sleep apnea 07/25/2014 07/25/2014 Cholelithiasis 07/17/2014 10/27/2017 Abdominal pain 07/17/2014 10/27/2017 Hypercalciuria 04/22/2011 12/29/2019 Kidney stones 04/11/2011 12/29/2019 Abnormal PSA 04/11/2011 09/01/2018 documented as of this encounter (statuses as of 09/23/2022) [facility] History of Past illness Narrative* Problem Noted Date Resolved Date Severe sleep apnea 07/25/2014 07/25/2014 Cholelithiasis 07/17/2014 10/27/2017 Abdominal pain 07/17/2014 10/27/2017 Hypercalciuria 04/22/2011 12/29/2019 Kidney stones 04/11/2011 12/29/2019 Abnormal PSA 04/11/2011 09/01/2018 documented as of this encounter (statuses as of 08/16/2021) [facility] Hypertension, essential Unspecified essential hypertension [facility] Diagnosis Routine medical exam- Primary Routine general medical examination at a health care facility Primary hypertension Unspecified essential hypertension Ascending aorta dilation (HCC) Thoracic aortic ectasia Paroxysmal atrial fibrillation (HCC) Atrial fibrillation BPH with obstruction/lower urinary tract symptoms Hypertrophy of prostate with urinary obstruction and other lower urinary tract symptoms (LUTS) Chronic bronchitis, obstructive (HCC) Obstructive chronic bronchitis without exacerbation Obesity, Class III, BMI 40-49.9 (morbid obesity) (HCC) Morbid obesity Painless rectal bleeding [facility] Diagnosis Painless rectal bleeding [facility] Diagnosis Painless rectal bleeding [facility] Diagnosis Primary hypertension- Primary Unspecified essential hypertension [facility] Diagnosis Primary hypertension- Primary Unspecified essential hypertension documented in this encounter [place] note* Diagnosis Primary hypertension Unspecified essential hypertension documented in this encounter [place] note* Diagnosis Chest pain, unspecified type- Primary Ascending aorta dilation (HCC) Thoracic aortic ectasia Paroxysmal atrial fibrillation (HCC) Atrial fibrillation Primary hypertension Unspecified essential hypertension documented in this encounter [place] note* Diagnosis Essential hypertension- Primary Unspecified essential hypertension documented in this encounter [place] note* Diagnosis Primary hypertension Unspecified essential hypertension documented in this encounter [facility] for referral (narrative)* Outpatient Procedure (Routine) - Authorized Specialty Diagnoses / Procedures [facility] To Contact [facility] [place] Diagnoses Painless rectal bleeding Procedures COLONOSCOPY DIAGNOSTIC COLONOSCOPY FLX DX W/COLLJ SPEC WHEN Christy Hernández MD [address] [facility] [place] [address] [facility] Disease [address] [address] Referral ID Status Reason Start Date Expiration Date Visits Requested Visits Authorized [id number] Authorized Auto-Generat ed Referral 10/11/2021 10/11/2022 1 1 [facility] for referral (narrative)* Outpatient Procedure (Routine) - Closed Specialty Diagnoses / Procedures [facility]erred To Contact [facility] [place] Diagnoses Painless rectal bleeding Procedures COLONOSCOPY DIAGNOSTIC COLONOSCOPY FLX DX W/COLLJ SPEC WHEN Christy Hernández MD [address] [facility] [place] [address] [address] Referral ID Status Reason Start Date Expiration Date V isits Requested Visits Authorized [id number] Closed Auto-Generate d Referral 10/11/2021 10/11/2022 1 1 [facility] for referral (narrative)* Outpatient Procedure (Routine) - Closed Specialty Diagnoses / Procedures Referred By Contac t Referred [facility] Diagnoses Chest pain, unspecified type Procedures ECG COMPLETE ECG ROUTINE ECG W/LEAST 12 LDS W/I&R Mundo Plasencia MD [address] [place] [address] [facility] [address] [address] Referral ID Status Reason Start Date Expiration Date V isits Requested Visits Authorized [id number] Closed Auto-Generate d Referral 04/24/2022 04/24/2023 1 1 [facility] for visit Narrative* Outpatient Procedure (Routine) - Closed Specialty Diagnoses / Procedures Referred By [facility] Referred To Contact [facility] Diagnoses Painless rectal bleeding Procedures COLONOSCOPY DIAGNOSTIC COLONOSCOPY FLX DX W/COLLJ SPEC WHEN Christy Hernández MD [address] [place] [address] [facility] [address] [address] Referral ID Status Reason Start Date Expiration Date V isits Requested Visits Authorized [id number] Closed Auto-Generate d Referral 10/11/2021 10/11/2022 1 1 [facility] Summary Purpose Family History No Family History Records FoundNo Family History Records FoundNo Family History Records Found Advance Directives No Advanced Directives Records FoundDocuments on File 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 Advance Directive(s) 10/22/2021 11:09 AM Reason for Referral Specialty Diagnoses / Procedures Referred By Key de la rosa Referred To Contact General Surgery Diagnoses Painless rectal bleeding Procedures CONSULT TO GENERAL SURGERY OFFICE/OUTPATIENT [facility] MDM 60-74 MINUTES Mundo Plasencia MD [address] [place] [address] Referral ID Status Reason Start Date Expiration Date Visits Requested Visits Authorized [id number] Authorized PCP Requested Referral 10/09/2021 10/09/2022 1 1 Additional Source Comments (unrecognized sect ion and content) No Status Records FoundNo Status Records FoundNo Status Records Found INFORMATION SOURCE (unrecogn ized section and content) DATE CREATED AUTHOR AUTHOR'S KONRAD ATNEEMA 10/23/2021 [facility] DATE CREATED AUTHOR AUTHOR'S ORGANIZ ATION 01/01/2023 [facility] Source Comments (unrecognize d section and content) In the event this informatio n is protected by the Federal Confidentiality of Alcohol and Drug Abuse Patient Records regulations: The Federal rules restrict any use of the information to criminally investigate or prosecute any alcohol or drug abuse patient.[facility] the event this information is protected by the Federal Confidentiality of Alcohol and Drug Abuse Patient Records regulations: The Federal rules restrict any use of the information to criminally investigate or prosecute any alcohol or drug abuse patient.[facility] the event this information is protected by the Federal Confidentiality of Alcohol and Drug Abuse Patient Records regulations: The Federal rules restrict any use of the information to criminally investigate or prosecute any alcohol or drug abuse patient.[facility] the event this information is protected by the Federal Confidentiality of Alcohol and Drug Abuse Patient Records regulations: The Federal rules restrict any use of the information to criminally investigate or prosecute any alcohol or drug abuse patient.[facility] the event this information is protected by the Federal Confidentiality of Alcohol and Drug Abuse Patient Records regulations: The Federal rules restrict any use of the information to criminally investigate or prosecute any alcohol or drug abuse patient.[facility] the event this information is protected by the Federal Confidentiality of Alcohol and Drug Abuse Patient Records regulations: The Federal rules restrict any use of the information to criminally investigate or prosecute any alcohol or drug abuse patient.[facility] the event this information is protected by the Federal Confidentiality of Alcohol and Drug Abuse Patient Records regulations: The Federal rules restrict any use of the information to criminally investigate or prosecute any alcohol or drug abuse patient.[facility] the event this information is protected by the Federal Confidentiality of Alcohol and Drug Abuse Patient Records regulations: The Federal rules restrict any use of the information to criminally investigate or prosecute any alcohol or drug abuse patient.[facility] the event this information is protected by the Federal Confidentiality of Alcohol and Drug Abuse Patient Records regulations: The Federal rules restrict any use of the information to criminally investigate or prosecute any alcohol or drug abuse patient.[facility] the event this information is protected by the Federal Confidentiality of Alcohol and Drug Abuse Patient Records regulations: The Federal rules restrict any use of the information to criminally investigate or prosecute any alcohol or drug abuse patient.[facility] the event this information is protected by the Federal Confidentiality of Alcohol and Drug Abuse Patient Records regulations: The Federal rules restrict any use of the information to criminally investigate or prosecute any alcohol or drug abuse patient.[facility] the event this information is protected by the Federal Confidentiality of Alcohol and Drug Abuse Patient Records regulations: The Federal rules restrict any use of the information to criminally investigate or prosecute any alcohol or drug abuse patient.[facility] Reason for Visit (unrecogniz ed section and content) Reason Comments Yearly Exam Reason Comments Consult rectal bleeding Specialty Diagnoses / Procedures Referred By Contac t Referred To Contact General Surgery Diagnoses Painless rectal bleeding Procedures CONSULT TO GENERAL SURGERY OFFICE/OUTPATIENT [facility] MDM 60-74 MINUTES Mundo Plasencia MD [address] [place] [address] Referral ID Status Reason Start Date Expiration Date V isits Requested Visits Authorized [id number] Closed PCP Requested Referral 10/09/2021 10/09/2022 1 1 Reason Comments 10/22 COLON LODI Reason Comments F/U 3 Month Reason Comments 2 month follow up - blood pressure Lisin opril causing runny nose Reason Onset Date Comments Refill Request 04/02/2022 Reason Comments 6 week follow-up Reason Comments Blood Pressure Check Reason Onset Date Comments Refill Request 09/22/2022 Care Teams (unrecognized sec tion and content) Parts Identification Technician Relationship Specialty Start Date End Date Mundo Plasencia MD [address] [place], [place] [phone] PCP - General Internal Medicine 12/28/19 Parts Identification Technician Relationship Specialty Start Date End Date Mundo Plasencia MD [address] [place], [place] [phone] PCP - General Internal Medicine 12/28/19 Parts Identification Technician Relationship Specialty Start Date End Date Mundo Plasencia MD [address] [place], [place] [phone] PCP - General Internal Medicine 12/28/19 Parts Identification Technician Relationship Specialty Start Date End Date Mundo Plasencia MD [address] [facility], [place] [phone] PCP - General Internal Medicine 12/28/19 Parts Identification Technician Relationship Specialty Start Date End Date Mundo Plsaencia MD [address] [place] [address] PCP - General Internal Medicine 12/28/19 Parts Identification Technician Relationship Specialty Start Date End Date Mundo Plasencia MD [address] [place] [address] PCP - General Internal Medicine 12/28/19 Parts Identification Technician Relationship Specialty Start Date End Date Mundo Plasencia MD [address] [place] [address] PCP - General Internal Medicine 12/28/19 Parts Identification Technician Relationship Specialty Start Date End Date Mundo Plasencia MD [address] [place] [address] PCP - General Internal Medicine 12/28/19 FOR RECORDS PERTAINING TO PATIENTS WHO ARE OR HAVE BEEN ENROLLED IN A CHEMICAL DEPENDENCY/SUBSTANCEABUSE PROGRAM, SOME INFORMATION MAY BE OMITTED. This clinical summary was aggregated from multiple sources. Caution should be exercised in using it in the provision of clinical care. This summary normalizes information from multiple sources, and as a consequence, information in this document may materially change the coding, format and clinical context of patient data. In addition, data may be omitted in some cases. CLINICAL DECISIONS SHOULD BE BASED ON THE PRIMARY CLINICAL RECORDS. [facility]. provides no warranty or guarantee of the accuracy or completeness of information in this document.
[2023-04-03 16:03] LABS: CREATININE FINGERSTICK < 1.0 mg/dL (0.70-1.30); EGFR FINGERSTICK > 60.0000 mL/min (>60)
== END | disposition home or self-care (01) ==
LOC: CT 15:30
PROVIDERS: PCP Internal Medicine; Referring Provider Physician Assistant Medical; Visit Provider Physician Assistant Medical
DX: R91.1 Solitary pulmonary nodule (principal); I71.20 Thoracic aortic aneurysm, without rupture, unspecified
CPT/HCPCS: 71275; Q9967

== ENCOUNTER → 2024-04-26 | Outpatient (CLI) | payer MEDICARE, SELFPAY ==
--- NOTE | 2024-04-26 06:43 | CT_ITS ---
EXAM: CT ANGIOGRAPHY CHEST WITHOUT AND WITH INTRAVENOUS CONTRAST CLINICAL INDICATION: AAA TECHNIQUE: Helically acquired angiography images were obtained of the chest without and with intravenous contrast. CTDIvol = ( 12.35 ) mGy, DLP = ( 620.65 ) mGycm This CT exam was performed using one or more of the following dose reduction techniques: automated exposure control, adjustment of the mA and/or kV according to patient size, and/or use of iterative reconstruction technique. MIP reconstructed images were created and reviewed. CONTRAST: IV 100mL Isovue-370 COMPARISON: No relevant prior studies available. FINDINGS: PULMONARY ARTERIES: Unremarkable. Normal in caliber. No evidence of pulmonary embolism. AORTA: Ascending thoracic aorta measures up to 5.2 cm, unchanged. No dissection. GREAT VESSELS OF AORTIC ARCH: Unremarkable. Normal in caliber. No evidence of dissection. LUNGS AND PLEURAL SPACES: Pleural parenchymal scarring involving the right middle lobe. Focal airspace disease involving the left lower lobe is concerning for pneumonia in appropriate clinical setting. This is new since the prior study. No mass. No pleural effusion or thickening. HEART: Small pericardial effusion. No cardiomegaly. At least moderate multivessel calcific coronary arteriolosclerosis. MEDIASTINUM: Unremarkable. No mediastinal or hilar adenopathy. Esophagus is unremarkable. No hiatal hernia. No other cardiomediastinal or hilar abnormalities. THYROID: Unremarkable. No thyroid lesions. BONES/JOINTS: Degenerative changes of the spine at multiple levels. No suspicious lytic or blastic abnormality. LIVER: Hepatic steatosis. GALLBLADDER AND BILE DUCTS: Prior cholecystectomy. OTHER FINDINGS: Study was done only with IV contrast; there is no noncontrast disease. CT/CTA Chest W/WO Contrast IMPRESSION: 1. Ascending thoracic aorta measures up to 5.2 cm, unchanged. No dissection. 2. Focal airspace disease involving the left lower lobe is concerning for pneumonia in appropriate clinical setting. This is new since the prior study. Attention on follow-up. [facility] was utilized to assist in identifying pertinent positive findings. Electronically Signed: Brandon Garibay MD at 21:05 EST ,
== END | disposition home or self-care (01) ==
PROVIDERS: PCP Internal Medicine; Referring Provider Physician Assistant Medical; Visit Provider Physician Assistant Medical
DX: I71.20 Thoracic aortic aneurysm, without rupture, unspecified (principal)
CPT/HCPCS: 71275; Q9967

== ENCOUNTER → 2024-09-20 | Outpatient (CLI) | payer MEDICARE, SELFPAY ==
[2024-09-20 12:38] LABS: Absolute Lymphocyte Count 1.14 X10^3/uL (0.83-4.51); Basophil# 0.01 X10^3/uL; Basophil% 0.1 % (0-1); Eosinophil# 0.28 X10^3/uL; Eosinophils% 3.5 % (0-5); Hematocrit 29.2 % (40-54); Hemoglobin 9.1 g/dL (13.0-16.5); Lymphocyte # 1.14 X10^3/ul (0.83-4.51); Lymphocyte % 14.1 % (19-41); Mean Corp Hgb Conc 31.2 g/dL (32-36); Mean Corpuscular Hgb 28.6 pg (27.0-32.0); Mean Corpuscular Volume 91.8 fL (80-94); Mean Platelet Vol. 10.5 fl (6.2-12.0); Monocyte# 0.62 X10^3/uL; Monocyte% 7.6 % (0-10); NRBC Flagged by Analyzer 0 % (0-5); Neutrophil # 5.97 X10^3/uL (2.7-7.7); Neutrophil % 73.6 % (47-70); Platelet Count 244 K/mm3 (150-450); RBC Distribution Width CV 13.2 % (11.6-14.6); Red Blood Count 3.18 M/mm3 (4.6-6.2); White Blood Count 8.1 K/mm3 (4.4-11.0)
[2024-09-20 13:29] LABS: ALB/GLOB Ratio 1.3 RATIO (0.9-2.4); AST(SGOT) 17 U/L (<=37); Alanine Aminotransfer ALT/SGPT 29 U/L (<=46); Albumin, Serum 3.8 g/dL (3.4-4.8); Alkaline Phosphatase 101 U/L (40-129); Anion Gap 10 (5-15); BUN 18 mg/dL (4-19); BUN/Creat Ratio 15.7 RATIO (10-20); Calcium,Total 9.6 mg/dL (7.6-11.0); Carbon Dioxide 32.8 mmol/L (21.0-32.0); Chloride 101 mmol/L (98-108); Creatinine, Serum 1.13 mg/dL (0.70-1.20); EST Glomerular Filtration Rate 72 (>60); Globulin 2.8 g/dL (2.2-4.2); Glucose 128 mg/dL (70-99); Potassium 3.7 mmol/L (3.3-5.1); Protein, Total 6.6 g/dL (5.9-8.4); Sodium Level 143 mmol/L (133-145)
[2024-09-20 13:34] LABS: Pro- Brain NATRIURETIC PEPTIDE 972 pg/mL (<=900)
== END | disposition home or self-care (01) ==
LOC: LAB 11:15
PROVIDERS: PCP Internal Medicine; Referring Provider Student in an Organized Health Care Education/Training Program; Visit Provider Student in an Organized Health Care Education/Training Program
DX: I48.0 Paroxysmal atrial fibrillation (principal); I10 Essential (primary) hypertension; Z79.899 Other long term (current) drug therapy; R06.09 Other forms of dyspnea
CPT/HCPCS: 36415; 80053; 83880; 84443; 85025

== ENCOUNTER → 2024-09-29 | Outpatient (CLI) | payer MEDICARE, SELFPAY ==
[2024-09-29 15:06] LABS: Hematocrit 30.5 % (40-54); Hemoglobin 9.5 g/dL (13.0-16.5); Immature Granulocytes Count 0.080 X10^3/uL (0.0-0.0); Mean Corp Hgb Conc 31.1 g/dL (32-36); Mean Corpuscular Volume 90.2 fL (80-94); Mean Platelet Vol. 10.5 fl (6.2-12.0); NRBC Flagged by Analyzer 0 % (0-5); Platelet Count 209 K/mm3 (150-450); RBC Distribution Width CV 13.5 % (11.6-14.6); RBC Distribution Width SD 44.1 fl (35.1-43.9); Red Blood Count 3.38 M/mm3 (4.6-6.2); White Blood Count 8.8 K/mm3 (4.4-11.0)
== END | disposition home or self-care (01) ==
LOC: LAB 13:43
PROVIDERS: PCP Internal Medicine; Referring Provider Student in an Organized Health Care Education/Training Program; Visit Provider Student in an Organized Health Care Education/Training Program
DX: D64.9 Anemia, unspecified (principal)
CPT/HCPCS: 36415; 85025

== ENCOUNTER → 2024-10-31 | Outpatient (CLI) | payer MEDICARE, SELFPAY ==
[2024-10-31 15:30] LABS: Hematocrit 30.0 % (40-54); Hemoglobin 9.3 g/dL (13.0-16.5); Immature Granulocytes Count 0.030 X10^3/uL (0.0-0.0); Mean Corp Hgb Conc 31.0 g/dL (32-36); Mean Corpuscular Volume 85.7 fL (80-94); Mean Platelet Vol. 10.5 fl (6.2-12.0); NRBC Flagged by Analyzer 0 % (0-5); Platelet Count 198 K/mm3 (150-450); RBC Distribution Width CV 13.4 % (11.6-14.6); RBC Distribution Width SD 42.2 fl (35.1-43.9); Red Blood Count 3.50 M/mm3 (4.6-6.2); White Blood Count 7.8 K/mm3 (4.4-11.0)
== END | disposition home or self-care (01) ==
LOC: MTLAB 11:18
PROVIDERS: PCP Internal Medicine; Referring Provider Student in an Organized Health Care Education/Training Program; Visit Provider Student in an Organized Health Care Education/Training Program
DX: D64.9 Anemia, unspecified (principal)
CPT/HCPCS: 36415; 85025

== ENCOUNTER → 2024-11-17 | Outpatient (CLI) | payer MEDICARE, SELFPAY ==
[2024-11-17 12:15] LABS: Hematocrit 33.9 % (40-54); Hemoglobin 10.4 g/dL (13.0-16.5); Immature Granulocytes Count 0.040 X10^3/uL (0.0-0.0); Mean Corp Hgb Conc 30.7 g/dL (32-36); Mean Corpuscular Volume 84.1 fL (80-94); Mean Platelet Vol. 10.0 fl (6.2-12.0); NRBC Flagged by Analyzer 0 % (0-5); Platelet Count 203 K/mm3 (150-450); RBC Distribution Width CV 13.5 % (11.6-14.6); RBC Distribution Width SD 41.9 fl (35.1-43.9); Red Blood Count 4.03 M/mm3 (4.6-6.2); White Blood Count 9.6 K/mm3 (4.4-11.0)
[2024-11-17 13:36] LABS: Ferritin 26 ng/mL (37-417); Iron 24 ug/dL (65-175); Iron Binding Capacity,Total 403 ug/dL (250-450); Iron Binding Capacity,Unsat 379 ug/dL (228-428)
== END | disposition home or self-care (01) ==
LOC: LAB 11:41
PROVIDERS: PCP Internal Medicine; Referring Provider Student in an Organized Health Care Education/Training Program; Visit Provider Student in an Organized Health Care Education/Training Program
DX: D64.9 Anemia, unspecified (principal)
CPT/HCPCS: 36415; 82728; 83540; 83550; 85025

== ENCOUNTER 2024-12-16 06:11 | Day surgery (SDC) | payer MEDICARE, SELFPAY ==
--- NOTE | 2024-12-15 11:27 | PAT.ANESEVAL ---
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 When Was Last Pacemaker Check QUESTION #4 FULL TEXT: You/Your Family Experience fever (hyperthermia) with Anesthesia Last Oral Intake Last Oral intake: Last Oral Intake NPO since Meds taken in AM with sips of water? Meds patient instructed to take am of surgery PONV PONV - aircraft structure mechanic: PONV - aircraft structure mechanic Female No 12/15/24 09:11 HX of Motion Sickness Yes 12/15/24 09:11 HX of N/V After Surgery No 12/15/24 09:11 Non-Smoker Yes 12/15/24 09:11 Duration of Surgery greater No 12/15/24 09:11 than 60 minutes Number of Risk Factors 2 12/15/24 09:11 PONV Score Moderate Risk 12/15/24 09:11 Height & Weight Height & Weight: Anesthesia: Height & Weight Height 6 ft 10/31/24 07:34 Respiratory Assessment Respiratory Assessment - aircraft structure mechanic: Respiratory Tract Infection Hx - aircraft structure mechanic Hx Respiratory Tract Infection No 12/15/24 09:11 STOP Sleep Apnea STOP Sleep Apnea - aircraft structure mechanic: STOP Sleep Apnea - aircraft structure mechanic Hx Hypertension Yes: CONTROLLED WITH MEDS 12/15/24 09:11 Hx Sleep Apnea Yes 12/15/24 09:11 CPAP Yes: pt non-compliant 12/15/24 09:11 BIPAP No 12/15/24 09:11 Do you snore loudly (louder than talking or can be heard Do you often feel tired/ fatigued/ sleepy during daytime? Has anyone observed you stop breathing during sleep? STOP Results Positive 12/15/24 09:11 QUESTION #5 FULL TEXT : Do you snore loudly (louder than talking or can be heard through closed doors)? 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 confused, unrespo /Reproduction History /Reproductive History - aircraft structure mechanic: /Reproductive Hx- aircraft structure mechanic Hx Now No 12/15/24 09:11 Gestational Age (in weeks): EDC: Hx Hx Para Hx Section SAB No 12/15/24 09:11 [facility] Medical History (Updated 12/15/24 @ 11:00 by Debra Sawant) Loss of hearing Wears glasses Wears partial dentures Anxiety Alcohol use Diabetes Arthritis Bladder disease Prostate disease Low iron Restless legs DDD (degenerative disc disease), cervical Syncope Dietary restriction History of GI bleed History of diverticulitis CPAP (continuous positive airway pressure) dependence Leg cramps Shortness of breath on exertion History of transesophageal echocardiography (ENRIQUE) History of pain when walking History of edema History of echocardiogram Cardiology follow-up encounter Ascending aortic aneurysm Essential (primary) hypertension History of fractured rib Chronic back pain CVA (cerebral vascular accident) Paroxysmal supraventricular tachycardia Paroxysmal atrial fibrillation Marijuana abuse Nicotine abuse Home Medications Medication Instructions Recorded Last Taken Type doxazosin 4 mg tablet 8 mg PO DAILY 09/20/24 12/13/24 History metformin 500 mg tablet 500 mg PO BID 09/20/24 Unknown History amiodarone 100 mg tablet 100 mg PO BID #180 tabs 10/06/24 Unknown Rx amlodipine 5 mg tablet 5 mg PO DAILY #90 tabs 10/06/24 Unknown Rx metoprolol succinate 100 mg 100 mg PO QDAY #90 tabs 10/06/24 Unknown Rx tablet,extended release 24 hr torsemide 20 mg tablet 20 mg PO QAM #90 tabs 10/06/24 Unknown Rx famotidine 20 mg tablet 20 mg PO BID 10/31/24 Unknown History apixaban 5 mg tablet (Eliquis) 5 mg PO BID 12/15/24 Unknown History Allergy/AdvReac Type Severity Reaction Status Date / Time aspirin Allergy GI upset, Verified 12/15/24 09:11 hives Penicillins Allergy GI upset, Verified 12/15/24 09:11 hives tamsulosin (From Flomax) AdvReac Intermediate Other Verified 12/15/24 09:11 Family History Mother CAD (coronary artery disease) [place] in her 30's w/ coronary stents Father CAD (coronary artery disease) [place] in his 40's Surgical History (Updated 12/15/24 @ 09:25 by Debra Sawant) History of cardiac catheterization History of right nephrectomy (1998) Hx of cholecystectomy (2014) History of back surgery Social History Smoking Status: Former smoker alcohol intake: current alcohol intake frequency: holidays/special occasions only Alcohol type: wine substance use type: marijuana Audit: Pertinent Findings Pertinent Findings EKG Perinent findings: 10/31/2024. Normal sinus rhythm. Right bundle branch block. Compared to May 2022, right bundle branch block is now present. Stress test pertinent findings: 03/18/2021. EF of 69%. No ischemia. No infarct Echo (EF%) pertinent findings: 08/03/2024. EF is 60%. No aortic stenosis. Ascending aorta diameter is 4.6 cm. Status post valve sparing aortic root and ascending aorta replacement with 30 mm graft. 07/04/2024. EF is 74%. No aortic stenosis noted. Severely dilated ascending aorta. Aorta diameter is 5.1 cm. Heart catheterization pertinent findings: 06/08/2024. Normal cardiac output. Minimal diffuse CAD with moderate disease of the ostium of OM1. Consult pertinent findings: 10/31/2024. Diameter PAC. 1. Ascending aortic aneurysm-status post valve sparing aortic root and ascending aortic replacement graft on 08/03/2024. Blood pressure elevated on initial check in, improved upon recheck at 134/74. Patient had not taken his morning medications. Patient education on BP meds. 2. Paroxysmal atrial fib-history of-patient previously refused event monitors and anticoagulants. However patient started on anticoagulation during hospital stay along with amiodarone. EKG today was normal sinus rhythm. Patient is to continue amiodarone, apixaban, metoprolol. 3. Sleep apnea-patient is not compliant with his CPAP therapy. No longer requiring O2. Follow-up with pulmonology. 4. Hypertension-patient has normal blood pressure 134/74. Encouraged to keep taking his medications. 5. Lower extremity [id number] noticed increased in edema after starting insulin earlier this year. After being off of insulin for 2 days patient reports improved edema. Recommendation Anesthesia Recommendation Anesthesia recommendation: OPTIMIZED for anesthesia
[2024-12-16] VITALS (8 sets, daily range): BP systolic 132–142; BP diastolic 79–89; PULSE 68–74; RESP 14–20; TEMP 36.1–36.4; O2SAT 89–96; BMI 44.2
--- OUTSIDE RECORDS SUMMARY | 2024-12-16 06:25 | XMS RPT_ITS | CCD ---
Author Organization [facility] Inform ion Partnership [facility] Care Team Providers Care 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 Name Role Phone Ann Castro Unavailable Unavailable Ann Castro Unavailable Unavailable BRAULIO SMITH Unavailable Unavailable PHYSICIAN, NONE Unavailable Unavailable ADRIAN ALMONTE Unavailable Unavailable PHYSICIAN, NONE Unavailable Unavailable Mundo Plasencia MD Primary Care Provider Mundo Plasencia MD Primary Care Provider Mundo Plasencia MD Primary Care Provider Mundo Plasencia MD Primary Care Provider Chrissie COMMERCIAL PEST CONTROL REPRESENTATIVE.PLUMBING MANAGER, Chapis M Unavailable Unavailable Primary Care Provider UnavailMundo Ballard Primary Care Provider Mundo Plasencia Primary Care Provider Melchor PARK, Henrietta Unavailable Unavailable Melchor PARK, Henrietta Unavailable Unavailable Melchor PARK, Henrietta Unavailable Unavailable Dr. Mundo Plasencia MD Primary Care Provider Dr. Mundo Plasencia MD Referring Provider Nathan Galo Attending Provider Nathan Galo Referring Provider MUNDO PLASENCIA Primary Care Unavailable JOE TIMMONS Admitting Unavailable JOE TIMMONS Attending Unavailable MUNDO PLASENCIA Primary Care Unavailable MARS SOLANO Admitting Unavailable ARIANNA BENITES Consulting Unavailable MARS SOLANO Attending Unavailable YAQUELINMAMEAGHAN, OTFRRADHA Attending Unavailable NIEDERMAIER, OTFRIED Referring Unavailable PLASENCIA, MUNDO Primary Care Unavailable PLASENCIA, MUNDO Primary Care Unavailable NIEDERMAIER, AASHISH Attending Unavailable NIEDERMAIER, AASHISH Referring Unavailable PLASENCIA, MUNDO Primary Care Unavailable RUSS, MARS Attending Unavailable RUSS, MARS Attending Unavailable ALCIDES WALLACE Referring Unavailable RUSS, MARS Referring Unavailable PLASENCIA, MUNDO Primary Care Unavailable NIEDERMAIER, AASHISH Attending Unavailable PLASENCIA, MUNDO Primary Care Unavailable RUSS, MARS Attending Unavailable PLASENCIA, MUNDO Primary Care Unavailable RUSSEL NUNEZ Attending Unavailable PLASENCIA, MUNDO Primary Care Unavailable MISTY MACIAS Referring Unavailable RUSS, MARS Referring Unavailable PLASENCIA, MUNDO Primary Care Unavailable RUSS, MARS Attending Unavailable CHAPIS DICKENS Attending Unavailable PLASENCIA, GINI Primary Care Unavailable AJ QUILES Attending Unavailable PLASENCIA, GINI Referring Unavailable PLASENCIA, GINI Primary Care Unavailable PLASENCIA, GINI Referring Unavailable PLASENCIA, GINI Primary Care Unavailable MORGAN VERDE Attending Unavailable PLASENCIA, GINI Referring Unavailable PLASENCIA, GINI Primary Care Unavailable MORGAN VERDE Referring Unavailable PLASENCIA, GINI Primary Care Unavailable MORGAN VERDE Referring Unavailable PLASENCIA, GINI Primary Care Unavailable MORGAN VERDE Referring Unavailable PLASENCIA, GINI Primary Care Unavailable CHAPIS DICKENS Attending Unavailable PLASENCIA, GINI Primary Care Unavailable MORGAN VERDE Attending Unavailable PLASENCIA, GINI Primary Care Unavailable PLASENCIA, GINI Attending Unavailable SELF Referring Unavailable PLASECNIA, GINI Primary Care Unavailable PLASENCIA, GINI Attending Unavailable PLASENCIA, GINI Primary Care Unavailable Lawanda Chicas Attending Provider [phone] Henrietta Roche RN Unavailable Unavailable Lawanda Chicas Referring Provider Plasencia, Mundo Primary Care Unavailable Jakob Zayas Attending Unavailable Nathan Mack Referring Unavailable Nathan Mack Attending Unavailable Plasencia, Mundo Primary Care Unavailable Plasencia, Mundo Primary Care Unavailable Lawanda Honeycutt Attending Unavailable Lawanda Honeycutt Referring Unavailable BebaiterNathan Attending Unavailable Plasencia, Mundo Primary Care Unavailable Plasencia, Mundo Referring Unavailable Canelo Allison Attending Unavailable Plasencia, Mundo Primary Care Unavailable Plasencia, Mundo Referring Unavailable Plasencia, Mundo Primary Care Unavailable Plasencia, Mundo Referring Unavailable Demiter, Nathan Attending Unavailable Demiter, Nathan Referring Unavailable Plasencia, Mundo Primary Care Unavailable Demiter, Nathan Attending Unavailable Alcides Kovacs Attending Unavail able Alcides Kovacs Referring Unavail able Plasencia, Mundo Primary Care Unavailable Plasencia, Mundo Primary Care Unavailable Demiter, Nathan Referring Unavailable Demiter, Nathan Attending Unavailable Plasencia, Mundo Referring Unavailable Plasencia, Mundo Primary Care Unavailable Lawanda Honeycutt Attending Unavailable Allergies Allergy Classification Reported Allergen(s) Allergy Type Date of Onset Reaction(s) Facility (2 sources) Penicillins (Antibiotic) drug allergy 5 [facility] Work Phone: (20 sources) Aspirin; Translations: [ASPIRIN] Drug Allergy 8 [facility], [facility] Work Phone: (2 sources) Penicillins; Translations: [PENICILLINS] Drug Allergy 2 [facility] (19 sources) Penicillins Drug Allergy 2 [facility] (8 sources) Penicillins Allergy to substance 3 GI upset, [facility] (20 sources) Aluminum aspirin Drug Allergy 8 [facility] (20 sources) Penicillins Drug Allergy 2 [facility] (20 sources) Penicillins Drug Allergy 2 [facility] (1 source) Aspirin Drug Allergy 5 [facility] (1 source) Penicillins Drug allergy (disorder) 5 [facility] (1 source) tamsulosin Drug Allergy 5 [facility] Medications Current Medications Medication Drug Class(es) Dates Sig (Normalized) Sig (Original) albuterol 0.833 mg/ml / ipratropium bromide 0.167 mg/ml inhalation solution (20 sources) Anticholinergic, beta2-Adrenergic Agonist Start: 08-16-2024 ipratropium-albuter ol (Duo-Neb) 0.5-2.5 mg/3 mL nebulizer solution Take 3 mL by nebulization 3 times daily as needed for wheezing or shortness of breath. 08/16/2024 Active Start: 08-16-2024 End: 10-05-2024 take 3 mL by inhalation every six hours as needed ipratropium-albuterol (DUONEB) 0.5 mg-3 mg(2.5 mg base)/3 mL nebu Indications: Chronic bronchitis, obstructive (HCC) Inhale 3 mL as instructed every 6 hours as needed. 08/16/2024 10/05/2024 Start: 08-03-2024 End: 08-16-2024 amiodarone hydrochloride 100 mg oral tablet (20 sources) Antiarrhythmic Start: 11-01-2024 amiodarone (PA CERONE) 100 mg tablet Indications: Paroxysmal atrial fibrillation (HCC) Take 1 tablet by mouth two times a day. Per cardiology 11/01/2024 Active Start: 09-05-2024 End: 11-01-2024 take 1 tablet by mouth twice daily Amiodarone 100 mg tablet Discontinued 100 mg PO TWICE A DAY September 20, 2024 12:00am October 06, 2024 1:21pm Start: 08-08-2024 End: 08-09-2024 Start: 08-08-2024 End: 08-08-2024 Start: 08-06-2024 End: 09-12-2024 take 2 tablets by mouth twice daily, then take 2 tablets by mouth once daily, then take 1 tablet by mouth once daily amiodarone (Pacerone) 200 MG tablet Take 2 tablets (400 mg) by mouth 2 times daily for 10 days, THEN 2 tablets (400 mg) daily for 10 days, THEN 1 tablet (200 mg) daily for 7 days. 08/16/2024 Active Start: 08-04-2024 End: 08-04-2024 Start: 08-04-2024 End: 08-04-2024 apixaban 5 mg oral tablet (20 sources) Factor Xa Inhibitor Start: 11-01-2024 apixaban ( ELIQUIS) 5 mg tab(s) Take 1 tablet by mouth two times a day. Per cardiology 11/01/2024 Active Start: 08-11-2024 End: 11-01-2024 Apixaban (Eliquis) 5 mg tabl et Discontinued 5 mg PO .COMPLEX 180 3 September 28, 2024 2:59pm September 28, 2024 3:02pm 5 mg orally Twice a day: FAX to [employer] Drugs: bumetanide 1 mg oral tablet (20 sources) Loop Diuretic Start: 08-16-2024 End: 08-16-2024 take 1 tablet by mouth twice daily bumetanide (Bumex) 1 MG tablet Take 1 tablet (1 mg) by mouth 2 times daily. 08/16/2024 Active Start: 08-06-2024 End: 08-16-2024 doxazosin 8 mg oral tablet (20 sources) alpha-Adrenergic Selene Start: 10-05-2024 take 1 tablet by mouth once daily at bedtime doxazosin (CARDURA) 8 mg tablet Indications: BPH with obstruction/lower urinary tract symptoms Take 1 tablet by mouth daily at bedtime. 90 tablet 3 10/05/2024 Active Start: 09-08-2024 End: 10-03-2024 take 1 tablet by mouth once daily at bedtime doxazosin (CARDURA) 8 mg tablet Indications: BPH with obstruction/lower urinary tract symptoms Take 1 tablet by mouth daily at bedtime. 09/08/2024 10/03/2024 Discontinued Start: 08-17-2024 take 1 tablet by mindy th once daily doxazosin (Cardura) 4 MG tablet Take 1 tablet (4 mg) by mouth daily. 08/17/2024 Active Start: 12-16-2023 End: 09-20-2024 take 2 tablets by mouth once daily Doxazosin 4 mg tablet Active 8 mg PO DAILY September 20, 2024 10:10am Start: 06-15-2023 End: 12-16-2023 take 1 tablet by mouth once daily Doxazosin 4 mg tablet Discontinued 4 mg PO DAILY 90 3 June 15, 2023 8:58am December 16, 2023 8:55am Start: 04-11-2023 End: 09-08-2024 take 2 tablets by mouth once daily Doxazosin 2 mg tablet Discontinued 4 mg PO DAILY June 15, 2023 8:57am June 15, 2023 8:59am Start: 09-23-2022 take 1 tablet by mindy th once daily at bedtime doxazosin (CARDURA) 2 mg tablet Indications: Primary hypertension Take 1 tablet by mouth daily at bedtime. 30 tablet 5 09/23/2022 Active Start: 04-24-2022 End: 06-15-2023 take 1 tablet by mouth once daily Doxazosin 2 mg tablet Discontinued 2 mg PO DAILY May 29, 2022 1:00am June 15, 2023 8:58am Start: 04-04-2022 End: 04-24-2022 take 1 tablet by mouth once daily at bedtime doxazosin (CARDURA) 1 mg tablet Take 1 tablet by mouth daily at bedtime. 30 tablet 1 04/04/2022 04/24/2022 Discontinued (Dosage adjustment) Start: 03-12-2022 End: 04-02-2022 take 1 tablet by mouth once daily at bedtime doxazosin (CARDURA) 1 mg tablet Take 1 tablet by mouth daily at bedtime. 30 tablet 1 03/12/2022 04/02/2022 Discontinued Comment on above: Take 1 tablet by mindy th daily at bedtime. famotidine 20 mg oral tablet (20 sources) Histamine-2 Receptor Antagonist Start: 11-03-2024 famotidine (PEPCID) 20 mg tablet Indications: Gastroesophageal reflux disease, unspecified whether esophagitis present Take 1 tablet by mouth two times a day. Patient should start on November 03, 2024. 180 tablet 1 11/03/2024 Active Start: 11-03-2024 famotidine (PE PCID) 20 mg tablet Indications: Gastroesophageal reflux disease, unspecified whether esophagitis present Take 1 tablet by mouth two times a day. Patient should start on November 03, 2024. 180 tablet 1 11/03/2024 Active Start: 11-03-2024 famotidine (PE PCID) 20 mg tablet Indications: Gastroesophageal reflux disease, unspecified whether esophagitis present Take 1 tablet by mouth two times a day. Patient should start on November 03, 2024. 180 tablet 1 11/03/2024 Active Start: 11-03-2024 famotidine (PE PCID) 20 mg tablet Indications: Gastroesophageal reflux disease, unspecified whether esophagitis present Take 1 tablet by mouth two times a day. Patient should start on November 03, 2024. 180 tablet 1 11/03/2024 Active Start: 11-03-2024 famotidine (PE PCID) 20 mg tablet Indications: Gastroesophageal reflux disease, unspecified whether esophagitis present Take 1 tablet by mouth two times a day. Patient should start on November 03, 2024. 180 tablet 1 11/03/2024 Active Start: 11-03-2024 famotidine (PE PCID) 20 mg tablet Indications: Gastroesophageal reflux disease, unspecified whether esophagitis present Take 1 tablet by mouth two times a day. Patient should start on November 03, 2024. 180 tablet 1 11/03/2024 Active Start: 11-03-2024 famotidine (PE PCID) 20 mg tablet Indications: Gastroesophageal reflux disease, unspecified whether esophagitis present Take 1 tablet by mouth two times a day. Patient should start on November 03, 2024. 180 tablet 1 11/03/2024 Active Start: 11-03-2024 famotidine (PE PCID) 20 mg tablet Indications: Gastroesophageal reflux disease, unspecified whether esophagitis present Take 1 tablet by mouth two times a day. Patient should start on November 03, 2024. 180 tablet 1 11/03/2024 Active Start: 11-03-2024 famotidine (PE PCID) 20 mg tablet Indications: Gastroesophageal reflux disease, unspecified whether esophagitis present Take 1 tablet by mouth two times a day. Patient should start on November 03, 2024. 180 tablet 1 11/03/2024 Active Start: 09-20-2024 End: 10-31-2024 take 1 tablet by mouth once daily Famotidine 20 mg tablet Discontinued 20 mg PO daily September 20, 2024 12:00am October 31, 2024 9:16am Start: 09-05-2024 End: 11-04-2024 take 1 tablet by mouth twice daily Famotidine 20 mg tablet Active 20 mg PO TWICE A DAY October 31, 2024 9:15am hydrocortisone acetate 25 mg rectal suppository (17 sources) Corticosteroid Start: 09-08-2024 hydrocortisone (ANUSOL-HC) 25 mg suppository 1 suppository by RECTAL route once daily as needed. 09/08/2024 Active insulin glargine 100 unt/ml injectable solution (20 sources) Insulin Analog Start: 09-05-2024 End: 11-01-2024 inject 12 [IU] by subcutaneous injection twice daily at mealtime insulin glargine (LANTUS) 100 unit/mL injection Indications: New onset type 2 diabetes mellitus (HCC) Inject 12 Units subcutaneously two times a day with meals. 10 mL 10/05/2024 11/01/2024 Discontinued (Discontinued by Patient) Start: 08-17-2024 End: 08-16-2024 insulin glargine (Lantus) 10 0 UNIT/ML pen Inject 12 Units under the skin every morning. Do not start before August 17, 2024. 08/17/2024 Active Start: 08-17-2024 End: 08-16-2024 Start: 08-14-2024 End: 08-14-2024 Start: 08-14-2024 End: 08-14-2024 Start: 08-14-2024 End: 08-16-2024 Start: 08-05-2024 End: 08-14-2024 insulin lispro 100 unt/ml injectable solution (20 sources) Insulin Analog Start: 08-16-2024 Insulin Lispro (Humalog) 100 UNIT/ML solution injection Inject 0-12 Units under the skin 3 times daily (with meals). 08/16/2024 Active Start: 08-16-2024 End: 11-01-2024 insulin lispro 100 unit/mL i njection Indications: New onset type 2 diabetes mellitus (HCC) Inject 0-12 Units subcutaneously. 08/16/2024 11/01/2024 Discontinued (Discontinued by Patient) Start: 08-14-2024 End: 08-15-2024 Start: 08-05-2024 End: 08-14-2024 lidocaine 0.04 mg/mg medicated patch (20 sources) Antiarrhythmic, Amide Local Anesthetic Start: 08-13-2024 End: 08-16-2024 Start: 08-03-2024 End: 08-16-2024 apply 1 dose transdermal route once daily Lidocaine 4 % patch Apply 1 patch topically daily. 08/17/2024 Active melatonin 5 mg oral tablet (20 sources) Start: 08-05-2024 End: 08-16-2024 take 1 tablet by mouth once daily as needed melatonin 5 MG tablet Take 1 tablet (5 mg) by mouth Nightly as needed (Insomnia). 08/16/2024 Active 24 hr metFORMIN hydrochloride 500 mg extended release oral tablet (20 sources) Biguanide Start: 10-05-2024 take 1 tablet by mouth twice daily at mealtime metFORMIN ER (GLUCOPHAGE XR) 500 mg 24 hr tablet Indications: New onset type 2 diabetes mellitus (HCC) Take 1 tablet by mouth two times a day with meals. 180 tablet 1 10/05/2024 Active Start: 09-20-2024 take 1 tablet by mindy th twice daily Metformin 500 mg tablet Active 500 mg PO TWICE A DAY September 20, 2024 12:00am Start: 08-16-2024 End: 08-16-2024 Start: 08-16-2024 End: 08-16-2024 Start: 08-16-2024 End: 10-03-2024 take 1 tablet by mouth twice daily at mealtime metFORMIN XR (Glucophage-XR) 500 MG 24 hr tablet Take 1 tablet (500 mg) by mouth 2 times daily (with meals). Do not crush, chew, or split. 08/16/2024 Active 24 hr metoprolol succinate 100 mg extended release oral tablet (20 sources) beta-Adrenergic Selene Start: 11-01-2024 take 1 tablet by mouth once metoprolol succinate ER (TOPROL XL) 100 mg Indications: Paroxysmal atrial fibrillation (HCC) Take 1 tablet by mouth once daily. Per cardiology 11/01/2024 Active Start: 08-13-2024 End: 11-01-2024 take 1 tablet by mouth once daily Metoprolol Succinate 100 mg tablet extended release 24 hr Discontinued 100 mg PO daily September 20, 2024 12:00am October 06, 2024 1:21pm Start: 08-11-2024 End: 08-13-2024 Start: 08-10-2024 End: 08-10-2024 Start: 06-24-2022 End: 09-20-2024 take 1 tablet by mouth twice daily Metoprolol Tartrate 25 mg tablet Discontinued 25 mg PO TWICE A DAY 60 11 May 21, 2023 3:32pm June 15, 2023 8:59am Comment on above: Take 25 mg by mouth twice daily. oxyCODONE hydrochloride 5 mg oral tablet (19 sources) Opioid Agonist Start: take 1 tablet by mouth every four hours as needed for pain oxyCODONE (Roxicodone) 5 MG immediate release tablet Indications: S/P ascending aortic replacement Take 1 tablet (5 mg) by mouth every 4 hours as needed for moderate pain (4-6) or severe pain (7-10). 08/16/2024 Active pantoprazole 40 mg delayed release oral tablet (20 sources) Proton Pump Inhibitor Start: take 1 tablet by mouth once daily Pantoprazole 40 mg tablet,delayed release (DR/EC) Active 40 mg PO daily 60 November 02, 2024 12:00am Start: 08-06-2024 End: 08-16-2024 take 1 tablet by mouth once daily Pantoprazole 40 mg tablet,delayed release (DR/EC) Active 40 mg PO daily 60 November 02, 2024 12:00am microencapsulated potassium chloride 20 meq extended release oral tablet (20 sources) Start: 08-17-2024 take 1 tablet by mouth once daily potassium chloride CR (Klor-Con M20) 20 MEQ ER tablet Take 1 tablet (20 mEq) by mouth daily. Do not crush or chew. While taking bumex. 08/17/2024 Active Start: 08-04-2024 End: 08-16-2024 sennosides (SENNA-C ORAL) (6 sources) sennosides (VENITA A-C ORAL) Take by mouth once daily. Active torsemide 20 mg oral tablet (20 sources) Loop Diuretic Start: 11-01-2024 take 1 tablet by mouth once torsemide (DEMADEX) 20 mg tablet Take 1 tablet by mouth once daily. Per cardiology 11/01/2024 Active Start: 09-05-2024 End: 11-01-2024 take 1 tablet by mouth once daily in the morning Torsemide 20 mg tablet Discontinued 20 mg PO EVERY MORNING September 20, 2024 12:00am October 06, 2024 1:21pm TRUE METRIX GLUCOSE METER (17 sources) Start: 09-05-2024 TRUE METRIX GLUCOSE METER Indications: New onset type 2 diabetes mellitus (HCC) as directed. 09/05/2024 Active 30 actuat umeclidinium 0.0625 mg/actuat / vilanterol 0.025 mg/actuat dry powder inhaler (4 sources) Anticholinergi c, beta2-Adrenerg ic Agonist Start: 10-31-2024 take 1 dose by inhalation once daily umeclidinium-vilan terol (ANORO ELLIPTA) 62.5-25 mcg/actuation inhaler Inhale 1 inhalation as instructed once daily. 1 each 5 10/31/2024 Active Completed/Discontinued Medications Medication Drug Class(es) Dates Sig (Normalized) Sig (Original) acetaminophen 325 mg oral tablet (20 sources) Start: 09-05-2024 End: 10-24-2024 take 2 tablets by mouth every six hours as needed acetaminophen (TYLENOL) 325 mg tablet Take 650 mg by mouth every 6 hours as needed. 09/05/2024 10/24/2024 Discontinued Start: 08-16-2024 take 2 tablets by mo uth every eight hours acetaminophen (Tylenol) 500 MG tablet Take 2 tablets (1,000 mg) by mouth every 8 hours. 08/16/2024 Active Start: 08-03-2024 End: 08-16-2024 take 1 tablet by mouth every eight hours acetaminophen 325 mg / oxyCODONE hydrochloride 5 mg oral tablet (8 sources) Opioid Agonist Start: 11-13-2019 End: 11-16-2019 Oxycodone-Acetaminophen 1 TABLET tablet Discontinued 1 {tbl} PO EVERY 6 HOURS NEEDED as needed for Pain 12 3 0 November 13, 2019 November 15, 2019 12:00am November 16, 2019 12:02am Contusion of lower back and pelvis, initial encounter Stage 3 chronic kidney disease Peptic ulcer Contusion of lower back and pelvis, initial encounter Chronic kidney disease, stage 3 (moderate) Start: 11-13-2019 End: 11-16-2019 take 1 tablet by mouth every six hours as needed Oxycodone-Acetaminophen Discontinued 1 TABLET PO EVERY 6 HOURS NEEDED 12 3 November 13, 2019 November 15, 2019 11:02pm 20 ml albumin human, correction 250 mg/ml injection (10 sources) Human Serum Albumin Start: 08-06-2024 End: 08-07-2024 Start: 08-03-2024 End: 08-04-2024 albuterol 0.83 mg/ml inhalat ion solution (4 sources) beta2-Adrenergic Agonist Start: 08-04-2024 End: 08-04-2024 Start: 07-22-2024 End: 07-22-2024 2.5 mg, Nebulization, Once, On Thu07/22/24 at 0900, For 1 dose Start: 07-22-2024 End: 07-22-2024 2.5 mg, Nebulization, Once, On Thu07/22/24 at 0900, For 1 dose ALPRAZolam 0.25 mg disintegrating oral tablet (2 sources) Benzodiazepine Start: 08-03-2024 End: 08-03-2024 amLODIPine 10 mg oral tablet (20 sources) Dihydropyridine Calcium Channel Selene Start: 09-20-2024 End: 10-06-2024 take 5 mg by mouth once daily Amlodipine 10 mg tablet Discontinued 5 mg PO DAILY September 20, 2024 10:09am October 06, 2024 1:21pm Start: 09-08-2024 take 1 tablet by mindy th once daily Amlodipine 5 mg tablet Active 5 mg PO DAILY 90 October 06, 2024 1:19pm Start: 08-11-2024 End: 08-16-2024 Start: 08-04-2024 End: 08-05-2024 Start: 09-16-2022 End: 09-20-2024 take 1 tablet by mouth once daily Amlodipine 10 mg tablet Discontinued 10 mg PO DAILY 90 July 04, 2024 3:09pm September 20, 2024 10:14am Start: 06-24-2022 End: 09-16-2022 take 1 tablet by mouth once daily Amlodipine (Norvasc) 5 mg tablet Discontinued 5 mg PO DAILY 26 02June 24, 2022 12:00am September 16, 2022 9:30am Comment on above: Take 5 mg by mouth o nce daily. ARIPiprazole 10 mg oral tablet (11 sources) Atypical Antipsychotic Start: 09-21-19 End: 11-01-19 take 1 tablet by mouth once daily Aripiprazole (Abilify) 10 mg tablet Discontinued 10 mg PO daily September 20, 2024 12:00am October 31, 2024 9:16am Start: 09-05-2024 End: 10-05-2024 ARIPiprazole (ABILIFY) 10 mg tablet Indications: Delirium 10 mg by PEG Tube route once daily. 09/05/2024 09/28/2024 Discontinued (Clinical Decision) ascorbic acid/collagen hydr (COLLAGEN PLUS VITAMIN C ORAL) (20 sources) End: 09-08-2024 take 1000 mg by mouth once daily ascorbic acid/collagen hydr (COLLAGEN PLUS VITAMIN C ORAL) Take 1,000 mg by mouth once daily. 09/08/2024 Discontinued take 1000 mg by mouth once daily ascorbic acid/collagen hydr (COLLAGEN PLUS VITAMIN C ORAL) Take 1,000 mg by mouth once daily. Active take 1000 mg by mouth once daily ascorbic acid/collagen hydr (COLLAGEN PLUS VITAMIN C ORAL) Take 1,000 mg by mouth once daily. 0 Active Comment on above: Take 1,000 mg by mindy th once daily. asenapine 5 mg sublingual tablet (2 sources) Atypical Antipsychotic Start: 5 End: 5 aspirin 81 mg oral strip (4 sources) Nonsteroidal Anti-inflammatory Drug Start: 5 End: 5 take 1 tablet by mouth once daily ASPIRIN 81 MG TABS one tablet by mouth daily ASPIRIN [id number] Moises Mills MD beet juice (8 sources) Start: 8 End: 9 beet juice Discontinued PO 0 June 08, 2017 12:00am December 02, 2018 10:02am Start: 06-08-2017 End: 12-02-2018 beet juice Discontinued PO M arch 2017 12:00am December 02, 2018 10:02am Start: 06-08-2017 End: 12-02-2018 beet juice Discontinued PO M arch 2017 11:00pm December 02, 2018 9:02am Calcium Carb-Cholecalciferol (CALCIUM CARBONATE-VITAMIN D3 PO) (4 sources) Start: 06-15-2023 End: 06-01-2024 take 1 tablet by mouth once daily Calcium Carb-Cholecalciferol (CALCIUM CARBONATE-VITAMIN D3 PO) Take 1 tablet by mouth daily. 06/15/2023 06/01/2024 Discontinued (Therapy completed) Start: 06-15-2023 take 1 tablet by mindy th once daily Calcium Carb-Cholecalciferol (CALCIUM CARBONATE-VITAMIN D3 PO) Take 1 tablet by mouth daily. 06/15/2023 Active Calcium Carb-D3-Mag Ox-Zinc Ox (7 sources) Vitamin D Start: 06-15-2023 End: 09-20-2024 Calcium Carb-D3-Mag Ox-Zinc Ox (Сергей Mag Zinc Plus D3) 333 mg-133 unit -133 mg-5 mg tablet Discontinued {tbl} PO June 15, 2023 12:00am September 20, 2024 10:14am calcium chloride 0.0014 meq/ml / potassium chloride 0.004 meq/ml / sodium chloride 0.103 meq/ml / sodium lactate 0.028 meq/ml injectable solution (6 sources) Start: 08-03-2024 End: 08-03-2024 100 ml calcium gluconate 20 mg/ml injection (2 sources) Start: 08-03-2024 End: 08-16-2024 CALCIUM-VITAMIN D3-MAGNESIUM ORAL (11 sources) End: 09-08-2024 CALCIUM-VITAMIN D3-MAGNESIUM ORAL Take by mouth. 09/08/2024 Discontinued CALCIUM-VITAMIN D3-MAGNESIUM ORAL Take by mouth. Active CALCIUM-VITAMIN D3-MAGNESIUM ORAL Take by mouth. 0 Active carvedilol 12.5 mg oral tablet (8 sources) alpha-Adrenergic Selene, beta-Adrenergic Selene Start: 08-11-2024 End: 08-11-2024 Start: 08-10-2024 End: 08-11-2024 Start: 08-06-2024 End: 08-10-2024 Start: 08-06-2024 End: 08-06-2024 Chlorhexidine (7 sources) Start: 08-04-2024 End: 08-12-2024 Start: 08-03-2024 End: 08-06-2024 Start: 07-24-2024 End: 07-24-2024 chlorhexidine (Peridex) 0.12 % solution Use 15 mL in the mouth or throat Once for 1 dose. Swish for 30 seconds and spit out the night before surgery. Do not swallow. 15 mL 07/24/2024 07/24/2024 Active cholecalciferol 0.05 mg oral capsule (10 sources) Vitamin D Start: 06-08-2017 End: 06-08-2017 take 1 capsule by mouth once daily Cholecalciferol (Vitamin D3) 2,000 unit capsule Discontinued 2000 U PO daily June 08, 2017 12:00am June 08, 2017 12:53pm Start: 06-27-2014 take 1 tablet by mindy th once daily VITAMIN D 2000 UNIT TABS One tablet by mouth daily CHOLECALCIFEROL [id number] Moises Mills MD cholecalciferol 9.52 unt/ml / glucose 357 mg/ml oral gel (2 sources) Vitamin D Start: 08-04-2024 End: 08-16-2024 cinnamon bark 500 mg oral capsule (11 sources) Start: 06-15-2023 End: 06-01-2024 take 2 capsules by mouth once daily cinnamon 500 MG capsule Take 1,000 mg by mouth daily. 06/15/2023 06/01/2024 Discontinued (Therapy completed) Start: 06-15-2023 End: 09-20-2024 take 1 capsule by mouth once daily Cinnamon Bark (Cinnamon) 500 mg capsule Discontinued 1000 mg PO DAILY June 15, 2023 12:00am September 20, 2024 10:14am Cinnamon Preparation (20 sources) Non-Standardized Food Allergenic Extract End: 09-08-2024 take 1000 mL by mouth once daily CINNAMON Take 1,000 mL by mouth once daily. 09/08/2024 Discontinued take 1000 mL by mouth once daily CINNAMON Take 1,000 mL by mouth once daily. Active take 1000 mL by mouth once daily CINNAMON Take 1,000 mL by mouth once daily. 0 Active Comment on above: Take 1,000 mL by mindy th once daily. COENZYME Q10 (2 sources) Start: 09-24-2015 take 1 tablet by mouth twice daily CO Q-10 400 MG CAPS One tablet by mouth twice daily COENZYME Q10 [id number] Ann Castro COENZYME Q10 (4 sources) Start: 05-15-2014 End: 06-27-2014 take 1 tablet by mouth once daily CO Q-10 100 MG CAPS One tablet by mouth daily COENZYME Q10 [id number] Moises Mills MD Start: 05-15-2014 take 1 tablet by mindy th once daily CO Q-10 100 MG CAPS One tablet by mouth daily COENZYME Q10 [id number] Moises Mills MD COENZYME Q10 CAPS (4 sources) Start: 06-27-2014 take 1 tablet by mouth once daily COQ10 CAPS One tablet by mouth daily COENZYME Q10 CAPS [id number] Moises Mills MD Start: 06-27-2014 End: 09-18-2015 take 1 tablet by mouth once daily COQ10 CAPS One tablet by mouth daily COENZYME Q10 CAPS [id number] Khalida Andrade, XAVIER 100 ml dexmedetomidine 0.004 mg/ml injection (10 sources) Central alpha-2 Adrenergic Agonist Start: 08-14-2024 End: 08-16-2024 Start: 08-07-2024 End: 08-12-2024 Start: 08-03-2024 End: 08-04-2024 24 hr dilTIAZem hydrochloride 360 mg extended release oral capsule (20 sources) Calcium Channel Selene Start: 04-04-2022 End: 06-24-2022 take 1 capsule by mouth once daily Diltiazem Hcl 360 mg capsule,extended release 24hr Discontinued 360 mg PO DAILY May 29, 2022 1:00am June 24, 2022 1:39pm Start: 10-09-2021 End: 04-02-2022 take 1 capsule by mouth once daily dilTIAZem HCl (CARDIZEM CD) 360 mg 24 hr capsule Indications: Primary hypertension Take 1 capsule by mouth once daily. 30 capsule 5 10/09/2021 04/02/2022 Discontinued Start: 02-11-2021 End: 10-09-2021 take 1 capsule by mouth once daily dilTIAZem CD (CARTIA XT) 300 mg 24 hr capsule Indications: Hypertension, essential Take 1 capsule by mouth once daily. 30 capsule 5 08/16/2021 10/09/2021 Discontinued (Dosage adjustment) Start: 06-27-2020 End: 02-11-2021 take 1 capsule by mouth once daily dilTIAZem CD (CARTIA XT) 240 mg 24 hr capsule Indications: Hypertension, essential take 1 capsule by mouth once daily for blood pressure 30 capsule 5 06/27/2020 02/11/2021 Discontinued (Dosage adjustment) Start: 11-13-2019 End: 03-04-2021 take 1 capsule by mouth every twenty-four hours at bedtime Diltiazem Hcl 240 MG capsule,extended release 24hr Discontinued 240 mg PO AT BEDTIME November 13, 2019 12:00am March 04, 2021 4:15pm Start: 05-06-2016 End: 10-26-2018 take 1 capsule by mouth once daily Diltiazem Hcl 120 mg capsule,extended release 24hr Discontinued 120 mg PO DAILY 30 September 24, 2018 5:18pm October 26, 2018 4:41pm Start: 08-17-2015 [facility] CD 120 MG [id number] One tablet by mouth daily DILTIAZEM HCL COATED BEADS [id number] Moises Mills MD Comment on above: Take 1 capsule by mo [facility] once daily. docusate sodium 50 mg / sennosides, correction 8.6 mg oral tablet (2 sources) Start: 08-03-2024 End: 08-16-2024 2 ml fentaNYL 0.05 mg/ml injection (2 sources) Opioid Agonist Start: 06-08-2024 End: 06-08-2024 25 mcg, IntraVENous, Once, On Thu06/08/24 at 0930, For 1 dose Start: 06-08-2024 End: 06-08-2024 25 mcg, IntraVENous, Once, O n Thu06/08/24 at 0930, For 1 dose fish oil (2 sources) Start: 06-27-2014 take 1 tablet by mouth once daily FISH OIL CAPS One tablet by mouth daily OMEGA-3 FATTY ACIDS CAPS [id number] Moises Mills MD 2 ml furosemide 10 mg/ml injection (6 sources) Loop Diuretic Start: 08-04-2024 End: 08-05-2024 gabapentin 100 mg oral capsule (13 sources) Anti-epileptic Agent Start: 02-11-2021 End: 10-09-2021 take 1 capsule by mouth once daily at bedtime gabapentin (NEURONTIN) 100 mg capsule Indications: Chronic pain syndrome Take 1 capsule by mouth daily at bedtime for 180 days. 30 capsule 5 02/11/2021 10/09/2021 Discontinued Start: 01-02-2021 End: 02-11-2021 gabapentin (NEURONTIN) 300 m g capsule Indications: Chronic pain syndrome Take 1 capsule by mouth Every 3 Days. Patient taking 1 tablet every 3 days. 01/02/2021 02/11/2021 Discontinued Start: 11-13-2019 End: 01-02-2021 take 1 capsule by mouth three times daily Gabapentin 300 MG capsule Discontinued 300 mg PO THREE TIMES A DAY November 13, 2019 12:00am September 26, 2020 10:18am Comment on above: Take 1 capsule by [facility] daily at bedtime for 180 days. glucagon (rdna) 1 mg injection (2 sources) Antihypoglycemic Agent Start: 08-04-2024 End: 08-16-2024 50 ml glucose 50 mg/ml injection (4 sources) Start: 08-04-2024 End: 08-16-2024 Start: 08-03-2024 End: 08-04-2024 12 hr guaiFENesin 600 mg extended release oral tablet (2 sources) Start: 08-09-2024 End: 08-16-2024 0.5 ml heparin sodium, [place] [address] unt/ml prefilled syringe (4 sources) Unfractionated Heparin, Anti-coagulant Start: 08-15-2024 End: 08-16-2024 Start: 08-05-2024 End: 08-11-2024 1 ml hydrALAZINE hydrochloride 20 mg/ml injection (2 sources) Arteriolar Vasodilator Start: 08-04-2024 End: 08-12-2024 take 20 mg intravenously every four hours as needed for hypertension hydroCHLOROthiazide 12.5 mg oral tablet (4 sources) Thiazide Diuretic Start: 06-27-2014 End: 09-08-2016 take 1 tablet by mouth once daily HYDROCHLOROTHIAZIDE 12.5 MG TABS One tablet by mouth daily HYDROCHLOROTHIAZIDE [id number] Moises Mills MD 1 ml HYDROmorphone hydrochloride 1 mg/ml cartridge (2 sources) Opioid Agonist Start: 08-13-2024 End: 08-13-2024 Insulin Glargine (Lantus U-100 Insulin) 100 unit/mL solution (7 sources) Start: 09-20-2024 End: 11-02-2024 Insulin Glargine (Lantus U-100 Insulin) 100 unit/mL solution Discontinued 12 U SC EVERY MORNING September 20, 2024 12:00am November 02, 2024 9:01am Start: 09-20-2024 Insulin Glargi ne (Lantus U-100 Insulin) 100 unit/mL solution Active 12 U SC EVERY MORNING September 20, 2024 12:00am insulin, regular, human 100 unt/ml injectable solution (9 sources) Insulin Start: 09-20-2024 End: 11-02-2024 Insulin Regular Human (Humulin R Regular U-100 Insuln) 100 unit/mL solution Discontinued 15 U SC THREE TIMES A DAY September 20, 2024 12:00am November 02, 2024 9:02am Start: 08-03-2024 End: 08-05-2024 krill oil 1000 mg oral capsule (2 sources) Start: 06-27-2014 take 1 tablet by mouth once daily KRILL OIL 1000 MG CAPS One tablet by mouth daily KRILL OIL [id number] Ann Castro 1 ml LORazepam 2 mg/ml injection (12 sources) Benzodiazepine Start: 08-09-2024 End: 08-09-2024 Start: 08-09-2024 End: 08-09-2024 Start: 08-09-2024 End: 08-09-2024 Start: 08-09-2024 End: 08-09-2024 Start: 08-09-2024 End: 08-09-2024 Start: 08-09-2024 End: 08-12-2024 take 1 mg intravenously every six hours as needed for anxiety losartan potassium 25 mg oral tablet (8 sources) Angiotensin 2 Receptor Selene Start: 01-10-2022 End: 03-12-2022 take 1 tablet by mouth once daily losartan (COZAAR) 25 mg tablet Take 1 tablet by mouth once daily. 30 tablet 2 01/10/2022 03/12/2022 Discontinued (Side Effects) Start: 05-15-2014 take 1 tablet by mindy th once daily LOSARTAN POTASSIUM 50 MG TABS One tablet by mouth daily LOSARTAN POTASSIUM [id number] Moises Mills MD Start: 05-15-2014 End: 09-08-2016 take 1 tablet by mouth twice daily LOSARTAN POTASSIUM 50 MG TABS One tablet by mouth twice daily LOSARTAN POTASSIUM [id number] Khalida Andrade RN Comment on above: Take 1 tablet by mindy th once daily. magnesium hydroxide 80 mg/ml oral suspension (2 sources) Start: End: take 30 mL by mouth every twenty-four hours as needed for constipation 2 ml midazolam 1 mg/ml injection (2 sources) Benzodiazepine Start: End: 1 mg, IntraVENous, Once, On Thu06/08/24 at 0930, For 1 dose Start: 06-08-2024 End: 06-08-2024 1 mg, IntraVENous, Once, On Thu06/08/24 at 0930, For 1 dose 1 ml morphine sulfate 4 mg/m l cartridge (6 sources) Opioid Agonist Start: 08-15-2024 End: 08-15-2024 Start: 08-09-2024 End: 08-09-2024 Start: 08-09-2024 End: 08-09-2024 multivit-minerals/folic acid (ADULT MULTIVITAMIN GUMMIES ORAL) (2 sources) End: 01-02-2021 take 1 dose by mouth once daily multivit-minerals/folic acid (ADULT MULTIVITAMIN GUMMIES ORAL) Take 1 Dose by mouth once daily. 01/02/2021 Discontinued mupirocin 0.02 mg/mg topical ointment (5 sources) RNA Synthetase Inhibitor Antibacterial Start: 08-03-2024 End: 08-07-2024 Start: 08-03-2024 End: 08-03-2024 Start: 07-24-2024 End: 07-24-2024 mupirocin (Bactroban) 2 % oi ntment Apply 1 Application topically Once for 1 dose. Using a q-tip, place small fingertip size amount into each nostril the night before surgery. Do not occlude nasal passage. 1 g 07/24/2024 07/24/2024 Active 1 ml naloxone hydrochloride 0.4 mg/ml injection (2 sources) Opioid Antagonist Start: 08-03-2024 End: 08-16-2024 100 ml sodium nitroprusside 0.5 mg/ml injection (2 sources) Start: 08-03-2024 End: 08-07-2024 norepinephrine (Levophed) 16 mg in 0.9% sodium chloride 250 mL infusion (weight based) (premix) (2 sources) Start: 08-03-2024 End: 08-04-2024 omega-3 fatty acids (FISH OIL CONCENTRATE ORAL) (2 sources) End: 01-02-2021 take 800 mg by mouth once daily omega-3 fatty acids (FISH OIL CONCENTRATE ORAL) Take 800 mg by mouth once daily. 01/02/2021 Discontinued OMEGA-3 FATTY ACIDS CPDR (4 sources) Start: 05-15-2014 take 1 tablet by mouth once daily OMEGA 3 CPDR One tablet by mouth daily OMEGA-3 FATTY ACIDS CPDR [id number] Moises Mills MD Start: 05-15-2014 End: 06-27-2014 take 1 tablet by mouth once daily OMEGA 3 CPDR One tablet by mouth daily OMEGA-3 FATTY ACIDS CPDR [id number] Moises Mills MD ondansetron 4 mg oral strip (4 sources) Serotonin-3 Receptor Antagonist Start: 05-15-2014 End: 09-18-2015 ZOFRAN 4 MG TABS every 12 hours As needed ONDANSETRON HCL [id number] Khalida Andrade RN OTC PRODUCT (20 sources) Start: 03-07-2019 End: 01-02-2021 take 1 tablet by mouth once daily OTC PRODUCT Take 1 tablet by mouth once daily. Super beta prostate P3 Advanced 03/07/2019 01/02/2021 Discontinued take 1 tablet by mouth once gina y OTC PRODUCT Take 1 tablet by mouth once daily. Ageless Male Max 0 Active take 1 tablet by mouth once gina y OTC PRODUCT Take 1 tablet by mouth once daily. Super Beta Prostate Advance 0 Active Comment on above: Take 1 tablet by mindy th once daily. Ageless Male Max Take 1 tablet by mindy th once daily. Super Beta Prostate Advance pantoprazole (ProtoNix) 40 mg in sodium chloride (PF) 0.9 % 10 mL injection (2 sources) Start: 5 End: 5 PAPAYA ENZYME ORAL (20 sources) End: 5 take 1 capsule by mouth once daily PAPAYA ENZYME ORAL Take 1 capsule by mouth once daily. 09/08/2024 Discontinued take 1 capsule by mouth once ryann ly PAPAYA ENZYME ORAL Take 1 capsule by mouth once daily. Active take 1 capsule by mouth once ryann ly PAPAYA ENZYME ORAL Take 1 capsule by mouth once daily. 0 Active Comment on above: Take 1 capsule by mo uth once daily. perflutren protein A microsphere (Optison) 3 mL in sodium chloride (PF) 0.9 % 10 mL IV (2 sources) Start: 07-04-2024 End: 07-04-2024 0-10 mL, IntraVENous, IMG once PRN, other, suboptimal echo image, Starting on 07/04/24 at 1216, For 1 dose, CV Procedural Medications, Administer via slow IVP for suboptimal echocardiogram enhancement. May administer as divided doses to reach optimal image enhancement polyethylene glycol 3350 20109 mg powder for oral solution (20 sources) Osmotic Laxative Start: 09-20-2024 End: 10-31-2024 Polyethylene Glycol 3350 (Miralax) 17 gram/dose powder Discontinued 4 g PO ONCE September 20, 2024 12:00am October 31, 2024 9:16am Start: 08-03-2024 End: 08-16-2024 take 17 g by mouth once daily polyethylene glycol, PEG , 3350 (Miralax) 17 g packet Take 17 g by mouth daily. 08/17/2024 Active polyethylene glycol 3350 959274 mg / potassium chloride 2970 mg / sodium bicarbonate 6740 mg / sodium chloride 5860 mg / sodium sulfate 95196 mg powder for oral solution (7 sources) Osmotic Laxative Start: 10-11-2021 End: 04-24-2022 peg 3350-Electrolytes (GOLYTELY) 236-22.74-6.74 -5.86 gram suspension Indications: Painless rectal bleeding Refer to printed prep instructions from your provider. 4000 mL 0 10/11/2021 04/24/2022 Discontinued Comment on above: Refer to printed pre p instructions from your provider. Saw Vanderwagen (8 sources) Start: 05-06-2016 End: 06-08-2017 take 1 capsule by mouth once daily Saw Vanderwagen 450 MG capsule Discontinued 450 mg PO DAILY May 06, 2016 1:00am June 08, 2017 7:47am Start: 05-06-2016 End: 06-08-2017 take 450 mg by mouth once daily Saw Vanderwagen Discontinued 450 MG PO DAILY May 06, 2016 12:00am June 08, 2017 6:47am Sennosides (Natural Senna Laxative) 8.6 mg tablet (7 sources) Start: 09-20-2024 End: 11-02-2024 take 1 tablet by mouth once daily Sennosides (Natural Senna Laxative) 8.6 mg tablet Discontinued 8.6 mg PO daily September 20, 2024 12:00am November 02, 2024 8:40am Start: 09-20-2024 take 1 tablet by mindy th once daily Sennosides (Natural Senna Laxative) 8.6 mg tablet Active 8.6 mg PO daily September 20, 2024 12:00am sennosides, correction 8.6 mg oral tablet (7 sources) Start: 09-05-2024 End: 10-05-2024 take 2 tablets by mouth once daily senna (SENOKOT) 8.6 mg tab Take 17.2 mg by mouth once daily. 09/05/2024 10/05/2024 10 ml sodium bicarbonate 84 mg/ml injection (2 sources) Start: 08-04-2024 End: 08-04-2024 5 ml sodium chloride 9 mg/ml injection (12 sources) Start: 08-03-2024 End: 08-06-2024 Start: 08-03-2024 End: 08-12-2024 take 5-40 mL intraluminal route every eight hours Start: 08-03-2024 End: 08-03-2024 Start: 06-08-2024 End: 06-08-2024 take 30 mL intravenously every hour 30 mL/hr, IntraVENous, Continuous, Starting on Thu06/08/24 at 0845, Preprocedure Start: 06-08-2024 End: 06-08-2024 5-40 mL, IntraVENous, PRN, l ine care, After every IV line use, Starting on Thu06/08/24 at 0844, Preprocedure, For Line Patency: Peripheral IV = 5 mL; Midline or Central Line = 10 mL/lumen. If following IV push medication, administer flush at same rate as the IV push. Flush volume is determined by type of infusion therapy being given. For non-viscous solutions use: Peripheral IV = 5 mL Midline or Central Line = 10 mL/lumen For viscous solutions (i.e. blood components, parenteral nutrition, contrast media, or after obtaining blood sample) use: Peripheral IV = 10 mL Midline or Central Line = 20 mL/lumen Start: 06-08-2024 End: 06-08-2024 take 5-40 mL intravenously every twelve hours 5-40 mL, IntraVENous, Every 12 hours, First dose on Thu06/08/24 at 0845, Preprocedure, For Line Patency: Peripheral IV = 5 mL; Midline or Central Line = 10 mL/lumen. If following IV push medication, administer flush at same rate as the IV push. Flush volume is determined by type of infusion therapy being given. For non-viscous solutions use: Peripheral IV = 5 mL Midline or Central Line = 10 mL/lumen For viscous solutions (i.e. blood components, parenteral nutrition, contrast media, or after obtaining blood sample) use: Peripheral IV = 10 mL Midline or Central Line = 20 mL/lumen 5 ml sugammadex 100 mg/ml in jection (4 sources) Start: 08-03-2024 End: 08-03-2024 Start: 08-03-2024 End: 08-03-2024 sulfamethoxazole 800 mg / trimethoprim 160 mg oral tablet (11 sources) Dihydrofolate Reductase Inhibitor Antibacterial, Sulfonamide Antimicrobial Start: 10-06-2024 End: 10-24-2024 take 1 tablet by mouth twice daily sulfamethoxazole-trimethoprim (BACTRIM DS) 800-160 mg per tablet Take 1 tablet by mouth two times a day. 28 tablet 10/06/2024 10/24/2024 Discontinued Start: 08-16-2024 End: 08-23-2024 take 1 tablet by mouth every twelve hours sulfamethoxazole-trimethoprim (Bactrim D S) 800-160 MG tablet Take 1 tablet by mouth every 12 hours for 13 doses. 08/16/2024 08/23/2024 Start: 08-16-2024 End: 08-23-2024 tamsulosin hydrochloride 0.4 mg oral capsule (2 sources) alpha-Adrenergic Selene Start: 08-04-2024 End: 08-09-2024 Turmeric extract (20 sources) End: 09-08-2024 take 1500 mg by mouth twice daily TURMERIC ORAL Take 1,500 mg by mouth twice daily. 09/08/2024 Discontinued End: 06-01-2024 take 1000 mg by mouth once daily TURMERIC PO Take 1,000 mg by mouth daily. 06/01/2024 Discontinued (Therapy completed) take 1000 mg by mout h once daily TURMERIC PO Take 1,000 mg by mouth daily. Active take 1500 mg by mout h twice daily TURMERIC ORAL Take 1,500 mg by mouth twice daily. Active take 1500 mg by mout h twice daily TURMERIC ORAL Take 1,500 mg by mouth twice daily. 0 Active Comment on above: Take 1,500 mg by mindy th twice daily. Turmeric Root Extract 500 mg tablet (7 sources) Start: 4 End: 5 take 1 tablet by mouth once daily Turmeric Root Extract 500 mg tablet Discontinued 1000 mg PO DAILY June 15, 2023 12:00am September 20, 2024 10:14am valproic acid 50 mg/ml oral solution (2 sources) Mood Stabilizer, Anti-epileptic Agent Start: 5 End: 5 take 125 mg by mouth every twelve hours vancomycin (Vancocin) 2,250 mg in sodium chloride 0.9 % 500 mL IVPB (2 sources) Start: 5 End: 5 CHOLECALCIFEROL (4 sources) Start: 5 take 1 tablet by mouth once daily VITAMIN D 1000 UNIT TABS D3 One tablet by mouth daily CHOLECALCIFEROL [id number] Moises Mills MD Start: 05-15-2014 End: 06-27-2014 take 1 tablet by mouth once daily VITAMIN D 1000 UNIT TABS D3 One tablet by mouth daily CHOLECALCIFEROL [id number] Moises Mills MD (12 sources) Start: 08-07-2024 End: 08-09-2024 Start: 08-04-2024 End: 08-04-2024 Start: 08-03-2024 End: 08-16-2024 [Order 1 Start] Name: magnes ium sulfate IVPB premix 2,000 mg Signed Summary: 2,000 mg, IntraVENous, at 25 mL/hr, Administer over 2 Hours, As needed, Per Magnesium Replacement Protocol, Starting on Thu08/03/24 at 1504, Recovery & On Unit, Mg Lab Replacement Action 1.4-1.6 2 gram IVPB x 1 doses 1.0-1.3 4 gram IVPB x 1 doses Less than 1.0 CALL PHYSICIAN and 4 gram IVPB x 1 doses Infuse at 1 gram/hr. Repeat Mag level next AM. Not for use in Patients with CrCl less than 30 mL/min. [Order 1 End] [Order 2 Start] Name: magnesium sulfate IVPB 4,000 mg Signed Summary: 4,000 mg, IntraVENous, at 25 mL/hr, Administer over 4 Hours, As needed, Per Magnesium Replacement Protocol, Starting on Thu08/03/24 at 1504, Recovery & On Unit, Mg Lab Replacement Action 1.4-1.6 2 gram IVPB x 1 doses 1.0-1.3 4 gram IVPB x 1 doses Less than 1.0 CALL PHYSICIAN and 4 gram IVPB x 1 doses Infuse at 1 gram/hr. Repeat Mag level next AM. Not for use in Patients with CrCl less than 30 mL/min. [Order 2 End] Start: 08-03-2024 End: 08-16-2024 [Order 1 Start] Name: potass ium chloride IVPB 20 mEq Signed Summary: 20 mEq, IntraVENous, at 50 mL/hr, Administer over 1 Hours, 3 times daily PRN, hypokalemia, Starting on Thu08/03/24 at 1504, Recovery & On Unit, For Central Line Use Only K Lab Replacement Action 3.1-3.5 20 mEq IVPB x 2 doses 2.7-3.0 20 mEq IVPB x 2 doses (40 mEq Total) less than 2.7 CALL PROVIDER and administer 20 mEq IVPB x 2 doses (40 mEq Total) Infuse at 20 mEq/hr Repeat Potassium lab 1 hour after final administration. Protocol not for use in Patients with CrCl less than 30mL/min For central line administration only. [Order 1 End] [Order 2 Start] Name: Potassium Chloride in NaCl IVPB 20 mEq Signed Summary: 20 mEq, IntraVENous, Administer over 2 Hours, Every 8 hours PRN, hypokalemia, Starting on Thu08/03/24 at 1504, Recovery & On Unit, For Peripheral Line Use K Lab Replacement Action 3.1-3.5 20 mEq IVPB x 1 doses 2.7-3.0 40 mEq IVPB x 1 doses less than 2.7 CALL PROVIDER and administer 40 mEq IVPB x 1 dose Infuse at 10 mEq/hr Repeat Potassium lab 1 hour after administration. Protocol not for use in Patients with CrCl less than 30mL/min [Order 2 End] [Order 3 Start] Name: potassium chloride 40 mEq in NS 500 mL IVPB (premix) Signed Summary: 40 mEq, IntraVENous, at 125 mL/hr, Administer over 4 Hours, 3 times daily PRN, hypokalemia, Starting on Thu08/03/24 at 1504, Recovery & On Unit, For Peripheral Line Use. K Lab Replacement Action 3.1-3.5 20 mEq IVPB x 1 doses 2.7-3.0 40 mEq IVPB x 1 doses less than 2.7 CALL PROVIDER and administer 40 mEq IVPB x 1 dose Infuse at 10 mEq/hr Repeat Potassium lab 1 hour after administration. Protocol not for use in Patients with CrCl less than 30mL/min [Order 3 End] Start: 08-03-2024 End: 08-16-2024 take 5 mg by mouth every four hours as needed for pain [Order 1 Start] Name: oxyCODONE (Roxicodone) immediate release tablet 5 mg Signed Summary: 5 mg, Oral, Every 4 hours PRN, moderate pain (4-6), Starting on Thu08/03/24 at 1504, Recovery & On Unit [Order 1 End] [Order 2 Start] Name: oxyCODONE (Roxicodone) immediate release tablet 10 mg Signed Summary: 10 mg, Oral, Every 4 hours PRN, severe pain (7-10), Starting on Thu08/03/24 at 1504, Recovery & On Unit [Order 2 End] Start: 08-03-2024 End: 08-16-2024 take 4 mg by mouth every eight hours as needed for nausea and vomiting [Order 1 Start] Name: ondansetron ODT (Zofran-ODT) disintegrating tablet 4 mg Signed Summary: 4 mg, Oral, Every 8 hours PRN, nausea, vomiting, Starting on Thu08/03/24 at 1504, Recovery & On Unit, 1st Line. If inadequate response within 60 minutes, proceed to next-line agent or contact provider if no further options ordered. Patient should allow tablet to dissolve on tongue. Do not remove from blister pack until just before administering. [Order 1 End] [Order 2 Start] Name: ondansetron (Zofran) injection 4 mg Signed Summary: 4 mg, IntraVENous, Every 6 hours PRN, nausea, vomiting, Starting on Thu08/03/24 at 1504, Recovery & On Unit, 1st Line. Give IV if patient is unable to take orally. If inadequate response within 60 minutes, proceed to next-line agent or contact provider if no further options ordered. [Order 2 End] (2 sources) Start: 08-04-2024 End: 08-16-2024 (2 sources) Start: 08-03-2024 End: 08-03-2024 Problems Active Problems Problem Classification Problem Date Documented Da te Episodic/Chronic Acute cerebrovascular disease (20 sources) Cerebrovascular accident; Translations: [Cerebral infarction, unspecified] Onset: 5 05-12-2014 Chronic Alcohol-related disorders (10 sources) Nondependent alcohol abuse, continuous; Translations: [Alcohol abuse] Onset: 5 12-29-2014 Chronic Aortic; peripheral; and visceral artery aneurysms (20 sources) Ascending aorta dilatation; Translations: [Thoracic aortic ectasia] Onset: 9 Resolved: 5 08-29-2020 Chronic Comment on above: There is ectasia of the ascending thoracic aorta with axial diameter measuring up to 4.4 cm 11/13/2019 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 08/03/2024 Cardiac dysrhythmias (20 sources) Paroxysmal atrial fibrillation; Translations: [Supraventricular tachycardia] Onset: 6 09-18-2015 Chronic Chronic obstructive pulmonary disease and bronchiectasis (20 sources) Emphysematous bronchitis; Translations: [Chronic obstructive pulmonary disease, unspecified] Onset: 1 07-08-2020 Chronic Chronic obstructive pulmonary disease and bronchiectasis (1 source) Chronic obstructive pulmonary disease and bronchiectasis; Translations: [Chronic bronchitis, obstructive (HCC)] Onset: 1 Congestive heart failure; nonhypertensive (19 sources) Acute on chronic systolic heart failure; Translations: [Acute on chronic systolic (congestive) heart failure] Onset: 5 08-29-2024 Chronic Deficiency and other anemia (7 sources) Anemia; Translations: [Anemia, unspecified] 09-08-2024 Episodic Deficiency and other anemia (2 sources) Anemia, unspecified; Translations: [Anemia, unspecified type] Onset: 5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 Vital Signs 09/20/24 07:21 10/31/24 07:34 Height 6 ft 6 ft Weight: 329 lb BMI 44.6 BP 161/87 H Blood Pressure Location Lt brachial Position Sitting Respiration 18 Pulse 70 Pulse Source Monitor Pulse Oximetry (%) 97 Intake Visit Reasons: Acid reflux Chief Complaint: anemia Allergies aspirin Allergy (Verified 10/31/24 09:17) GI upset, hives Penicillins Allergy (Verified 10/31/24 09:17) GI upset, hives Medications ???Medication ???Instructions ???Recorded ???Confirmed ???Type doxazosin 4 mg tablet 8 mg PO DAILY 09/20/24 10/31/24 Hi story metformin 500 mg tablet 500 mg PO BID 09/20/24 10/31/24 Hi story apixaban 5 mg tablet (Eliquis) 5 mg PO .COMPLEX #180 tabs 5 10/31/24 Rx amiodarone 100 mg tablet 100 mg PO BID #180 tabs 10/06/24 0 10/31/24 Rx amlodipine 5 mg tablet 5 mg PO DAILY #90 tabs 10/06/24 Rx metoprolol succinate 100 mg 100 mg PO QDAY #90 tabs 10/06/24 0 10/31/24 Rx tablet,extended release 24 hr torsemide 20 mg tablet 20 mg PO QAM #90 tabs 10/06/2407/22 Rx famotidine 20 mg tablet 20 mg PO BID 10/31/24 11/02/24 His tory pantoprazole 40 mg tablet,delayed 40 mg PO QDAY #60 tabs 11/02/24 0 11/02/24 Rx release Have you fallen in the past year?: No Nurse's Note: OV 11/01/24 Pt here to establish care with [facility]. Pt has complaints of gas and bloating. Reports no prior EGD and prior colonoscopy was 3 yrs ago. Denies trouble swallowing, abdominal pain, bloody stools, constipation, and diarrhea. Takes famotidine daily. [facility] Medical History Frequent headaches Ascending aortic aneurysm Essential (primary) hypertension Dyspnea on exertion Shortness of breath History of fractured rib H/O unilateral nephrectomy Obesity (BMI 30.0-34.9) Chronic back pain Obstructive sleep apnea CVA (cerebral vascular accident) Paroxysmal supraventricular tachycardia Paroxysmal atrial fibrillation Alcohol abuse Marijuana abuse Nicotine abuse Surgical History History of right nephrectomy (1998) Hx of cholecystectomy (2014) History of back surgery Family History Mother CAD (coronary artery disease) CT in her 30's w/ coronary stents Father CAD (coronary artery disease) CT in his 40's Social History Smoking Status: Former smoker alcohol intake: current alcohol intake frequency: holidays/special occasions only Alcohol type: wine substance use type: marijuana HPI HPI Chief Complaint: anemia Details: ERICKSON RIGGS, is a 64 M who presents to the office today for establishment. Patient underwent valve sparing aortic root and ascending aorta replacement graft, left atrial appendage exclusion along with intraoperative transesophageal echocardiogram in July [address] [facility]. Patient was referred from his primary care physician. Referral indicates it is for gastroesophageal reflux disease however patient he denies any heartburn, epigastric pain, nausea or vomiting. Chart review shows a declining hemoglobin since July 2024. He did have 1 episode of blood in his stool which resolved. Blood was bright red and he has had this in the past. He is on Eliquis. He denies black or tarry stools. He has no new or worsening shortness of breath, lightheadedness or dizziness. Last colonoscopy was about 3 years with recommendation for repeat in 10. He has never had an EGD. ROS Const Constitutional: Positive for weakness; No fatigue, fever(s) or weight change ENT ENT: No difficulty swallowing Cardio Cardiology: Positive for leg pain with exertion Gastro GI: Positive for bloating and excessive flatus; No abdominal pain, belching, change in bowel habits, change in stool character, coffee ground emesis, constipation, cramping, diarrhea, heartburn, difficulty swallowing, feeling full early, incontinent of stools, Vomiting blood/hematemesis, Blood in stool, loose stools, Black,tarry stools, nausea/dyspepsia, pain with swallowing, vomiting or other Musc Musculoskeletal: Positive for joint pain, back pain, joint swelling, numbness, stiffness, tingling, Arthritis, sciatica, restless legs, leg pain at night and leg pain with exertion Skin Skin: No yellowing of the eye or itchy eyes Neuro Neurology: Positive for dizziness, weakness, numbness, tingling and restless legs Psych Psychiatr (more content not included)... [facility] Office Visit (INTMWS) ERICKSON RIGGS ([id number]) 1960 M Date Time Provider Department 11/01/24 8:00 AM CHAPIS DICKENS INTMWS During your visit today, we recorded the following information about you: Pulse Respiration Blood pressure Weight 68/minute 14/minute 124/78 148.3 kg Chapis Dickens APRN.CNP 11/01/2024 8:05 AM Signed - Check and record your fasting blood sugar every morning. - A referral for your diabetic eye exam has been sent; call the eye clinic to schedule your appointment when you?re ready. - We will inform your cytopathology technologist that the inhaler cost was too high; contact their office to discuss a more affordable option if needed. - Your next follow-up visit will be scheduled in 6 months. Chapis Dickens APRN.CNP 11/01/2024 8:11 AM Signed CC: Patient presents with: Follow Up: 6 months HPI Recording using SyncSum software for draft documentation of the visit was discussed with the patient/authorized associate financial representative; all questions welcomed and answered. Patient/authorized associate financial representative agreed to proceed Afshin Riggs is a 64-year-old male with a history of diabetes, presenting for a 6-month follow-up. Diabetes Management: - Recently stopped taking insulin on Thursday due to BLE edema which quickly resolved after discontinuation; also believes diabetes was a misdiagnosis. - Blood glucose levels have been in the low 100s, with a reading of 113 mg/dL this morning. - Not taking insulin; continues metformin. - Due for a diabetic eye exam; has not scheduled it yet. - Reports feeling overwhelmed by frequent medical appointments, stating, "I feel like I don't have a life because of doctors." - Denies visual disturbances or foot pain - Reports chronic decreased sensation in both feet A-fib: - Under the care of Dr. Allison, with a recent appointment yesterday. - Next cardiology appointment scheduled in 6 months. - Taking amiodarone, metoprolol, torsemide and Eliquis as prescribed - No changes made to cardiac medications during the recent appointment. COPD: - had follow-up with pulmonology yesterday. - Prescribed Trelegy but patient did not fill due to high cost of medication Review of Systems See HPI 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 Cholelithiasis 07/17/2014 Chronic bronchitis, obstructive (HCC) 07/08/2020 Chronic pain syndrome 05/09/2019 Chronic tension-type headache, not intractable 03/1969 after reading, focusing 20 minutes COVID 11/26/2020 CVA (cerebral infarction) 02/2011 Ghazala DDD (degenerative disc disease), lumbar 1999 Gout H/O kidney removal 1998 right Hypercalciuria 04/22/2011 Hypertension Kidney stones New onset type 2 diabetes mellitus (HCC) 07/27/2024 Obesity (BMI 30-39.9) 07/25/2014 SONIA (obstructive sleep apnea) 07/25/2014 Paroxysmal atrial fibrillation (HCC) 10/27/2017 Dr.Daniel Mills[facility] S/P aorta repair-Valve sparing aortic root, ascending aorta replacement 30mm Cardioroot graft; Left atrial appendage exclusion 40mm Atriclip; ENRIQUE 08/03/2024 Stroke (cerebrum) (HCC) Tobacco abuse 07/25/2014 PAST SURGICAL HISTORY Procedure Laterality Date ASCEND AORTA GRFT 08/03/2024 Valve sparing aortic root, ascending aorta replaced, Left atrial appendage exclusion COLONOSCOPY 10/22/2021 repeat in 10 years LAPAROSCOPY SURG CHOLECYSTECTOMY 08/02/2014 LEFT AND RIGHT HEART CATH 06/08/2024 minimal CAD PARTIAL MASTECTOMY Right 2002 benign, breast discharge [...] child ALLERGIES Penicillins and Asa [Aspirin] MEDICATIONS amiodarone (PACERONE) 100 mg tablet Take 1 tablet by mouth two times a day. Per cardiology metoprolol succinate ER (TOPROL XL) 100 mg Take 1 tablet by mouth once daily. Per cardiology apixaban (ELIQUIS) 5 mg tab(s) Take 1 tablet by mouth two times a day. Per cardiology umeclidinium-vilante rol (ANORO ELLIPTA) 62.5-25 mcg/actuation inhaler Inhale 1 inhalation as instructed once daily. umeclidinium-vilante rol (ANORO ELLIPTA) 62.5-25 mcg/actuation inhaler Inhale 1 inhalation as instructed once daily. sennosides (SENNA-C ORAL) Take by mouth once daily. [START ON 11/03/2024] famotidine (PEPCID) 20 mg tablet Take 1 tablet by mouth two times a day. Patient should start on November 03, 2024. doxazosin (CARDURA) 8 mg tablet Take 1 tablet by mouth daily at bedtime. metFORMIN ER (GLUCOPHAGE XR) 500 mg 24 hr tablet Take (more content not included)... Normal [facility] Absolute lymphocyte countOrd ered By: Nathan Mack on 10-31-2024 Lymphocytes Auto (Unsp spec) [#/Vol] 1.28 10*3/uL 0.83-4.51 [facility] Absolute neutrophil countOrd ered By: Nathan Mack on 10-31-2024 Neutrophils (Bld) [#/Vol] 5.5 10*3/uL 2.0-7.7 [facility] Automated lymphocyte count a s percentage of total leukocytesOrdered By: Nathan Yoderiter on 10-31-2024 Lymphocytes/100 WBC Auto (Unsp spec) 16.4 % Low 19-41 [facility] Basophil percentageOrdered B y: Nathan Demiter on 10-31-2024 Basophils/100 WBC (Bld) 0.5 % 0-1 [facility] CBC W/Diff, Automatedon Absolute Lymph 1.28 X10 3/uL Normal 0.83-4.51 [facility] Comment on above: Performed By: #### L 100.0100 #### [facility] [address] [place], [address] Absolute Neut 5.5 X10 3/uL Normal 2.0-7.7 [facility] Comment on above: Performed By: #### L 100.0100 #### [facility] [address] [place], [address] Basophils/100 WBC (Bld) 0.5 % Normal 0-1 [facility] Comment on above: Performed By: #### L 100.0100 #### [facility] [address] [place], [address] Eosinophils/100 WBC (Bld) 2.6 % Normal 0-5 [facility] Comment on above: Performed By: #### L 100.0100 #### [facility] [address] [place], [address] Erythrocyte distribution width (RBC) [Ratio] 13.4 % Normal 11.6-14.6 [facility] Comment on above: Performed By: #### L 100.0100 #### [facility] [address] [place], [address] Hematocrit (Bld) [Volume fraction] 30.0 % Low 40-54 [facility] Comment on above: Performed By: #### L 100.0100 #### [facility] [address] [place], [address] Hemoglobin (Bld) [Mass/Vol] 9.3 g/dL Low 13.0-16.5 [facility] Comment on above: Performed By: #### L 100.0100 #### [facility] [address] [place], [address] IG% 0.400 Normal 0.0-0.9 [facility] Comment on above: Result Comment: IG% - Immature Granulocytes (promyelocytes, myelocytes and metamyelocytes) > 1% indicates that a LEFT SHIFT is Present. Performed By: #### L 100.0100 #### [facility] [address] [place], [address] Lymphocytes/100 WBC (Bld) 16.4 % Low 19-41 [facility] Comment on above: Performed By: #### L 100.0100 #### [facility] [address] [place], [address] MCH (RBC) [Entitic mass] 26.6 pg Low 27.0-32.0 [facility] Comment on above: Performed By: #### L 100.0100 #### [facility] [address] [place], [address] MCHC (RBC) [Mass/Vol] 31.0 g/dL Low 32-36 [facility] Comment on above: Performed By: #### L 100.0100 #### [facility] [address] [place], [address] MCV (RBC) [Entitic vol] 85.7 fL Normal 80-94 [facility] Comment on above: Performed By: #### L 100.0100 #### [facility] [address] [place], [address] Monocytes/100 WBC (Bld) 9.4 % Normal 0-10 [facility] Comment on above: Performed By: #### L 100.0100 #### [facility] [address] [place], [address] Neutrophils/100 WBC (Bld) 70.7 % High 47-70 [facility] Comment on above: Performed By: #### L 100.0100 #### [facility] [address] [place], [address] Nucleated RBC (Bld) [#/Vol] 0 10*3/uL Normal 0-5 [facility] Comment on above: Performed By: #### L 100.0100 #### [facility] [address] [place], [address] Platelet mean volume (Bld) [Entitic vol] 10.5 fL Normal 6.2-12.0 [facility] Comment on above: Performed By: #### L 100.0100 #### [facility] [address] [place], [address] Platelets (Bld) [#/Vol] 198 10*3/uL Normal 150-450 [facility] Comment on above: Performed By: #### L 100.0100 #### [facility] [address] [place], [address] RBC (Bld) [#/Vol] 3.50 10*6/uL Low 4.6-6.2 [facility] Comment on above: Performed By: #### L 100.0100 #### [facility] [address] [place], [address] RDW SD 42.2 fl Normal 35.1-43.9 [facility] Comment on above: Performed By: #### L 100.0100 #### [facility] [address] [place], [address] WBC (Bld) [#/Vol] 7.8 10*3/uL Normal 4.4-11.0 [facility] Comment on above: Performed By: #### L 100.0100 #### [facility] [address] [place], [address] CNOVon 10-31-2024 CNOV Office Visit (PULMWS) ERICKSON RIGGS ([id number]) 1960 M Date Time Provider Department 10/31/24 10:30 AM MORGAN VERDE PULMWS During your visit today, we recorded the following information about you: Pulse Respiration Blood pressure Weight 71/minute 15/minute 138/70 152 kg Morgan Verde MD 10/31/2024 12:21 PM Signed . Respiratory [place] Note Patient name: Erickson Riggs PCP: Mundo Plasencia MD CC: Review results HPI: Erickson Riggs 64 year old male former 20 pack year smoker, quitting in 2021 with PMH significant for morbid obesity (BMI 45), single kidney, HTN, DM, SONIA not using CPAP, possible COPD, PAF on amiodarone and Eliquis, CVA, s/p AVR and atrial clip. Recently seen for respiratory failure due to complications following open heart surgery. Required supplemental oxygen and NIV. At initial visit, patient was not using his NIV. Ordered updated PFTs, CXR. Respiratory failure felt to be mainly due to his untreated SONIA and morbid obesity with OHS. PFTs showed restriction with concomitant small airways obstruction. CXR unremarkable. Today he states he just cannot use his NIV. He may use it for a few hours but is not wakes him up and then he is unable to return to sleep. He is aggressively trying to lose weight. He states he was able to get down to just over 200 pounds in the past. Today he states he actually has felt better than he has in a long time. He does have some persistent dyspnea but it has improved as well as his lower extremity edema. No coughing or sputum production. DME: [facility] 2 L NIV DATA: PFT 10/2024: Imaging / Diagnostic Studies: CXR: 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 Cholelithiasis 07/17/2014 Chronic bronchitis, obstructive (HCC) 07/08/2020 Chronic pain syndrome 05/09/2019 Chronic tension-type headache, not intractable 03/1969 after reading, focusing 20 minutes COVID 11/26/2020 CVA (cerebral infarction) 02/2011 Ghazala DDD (degenerative disc disease), lumbar 2000 Gout H/O kidney removal 1998 right Hypercalciuria 04/22/2011 Hypertension Kidney stones New onset type 2 diabetes mellitus (HCC) 07/27/2024 Obesity (BMI 30-39.9) 07/25/2014 SONIA (obstructive sleep apnea) 07/25/2014 Paroxysmal atrial fibrillation (HCC) 10/27/2017 Dr.Daniel Mills[facility] S/P aorta repair-Valve sparing aortic root, ascending aorta replacement 30mm Cardioroot graft; Left atrial appendage exclusion 40mm Atriclip; ENRIQUE 08/03/2024 Stroke (cerebrum) ([facility]) Tobacco abuse 07/25/2014 ALLERGIES Allergen Reactions Penicillins Hives Hives or GI upset-patient unsure Asa [Aspirin] Hives, GI Upset umeclidinium-vilante rol (ANORO ELLIPTA) 62.5-25 mcg/actuation inhaler Inhale 1 inhalation as instructed once daily. umeclidinium-vilante rol (ANORO ELLIPTA) 62.5-25 mcg/actuation inhaler Inhale 1 inhalation as instructed once daily. apixaban (ELIQUIS) 5 mg tab(s) Take by mouth two times a day. torsemide (DEMADEX) 20 mg tablet Take 20 mg by mouth once daily. sennosides (SENNA-C ORAL) Take by mouth once daily. [START ON 11/03/2024] famotidine (PEPCID) 20 mg tablet Take 1 tablet by mouth two times a day. Patient should start on November 03, 2024. amiodarone (PACERONE) 100 mg tablet Take 1 tablet by mouth two times a day. metoprolol succinate ER (TOPROL XL) 100 mg Take 1 tablet by mouth once daily. doxazosin (CARDURA) 8 mg tablet Take 1 tablet by mouth daily at bedtime. insulin glargine (LANTUS) 100 unit/mL injection Inject 12 Units subcutaneously two times a day with meals. metFORMIN ER (GLUCOPHAGE XR) 500 mg 24 hr tablet Take 1 tablet by mouth two times a day with meals. TRUE METRIX GLUCOSE TEST STRIP test strip use for glucose checks TRUE METRIX GLUCOSE METER as directed. insulin lispro 100 unit/mL injection Inject 0-12 Units subcutaneously. polyethylene glycol 3350 17 gram packet Take 17 g by mouth at bedtime as needed. amLODIPine (NORVASC) 5 mg tablet Take 1 tablet by mouth once daily. hydrocortisone (ANUSOL-HC) 25 mg suppository 1 suppository by RECTAL route once daily as needed. Social History Tobacco Use Smoking status: Former Current packs/day: 0.00 Average packs/day: 0.5 packs/day for 36.0 years (18.0 ttl pk-yrs) Types: Pipe, Cigarettes Start date: 04/04/1985 Quit date: 04/04/2021 Years since quittin.5 Smokeless tobacco: Never Tobacco comments: quit Mar 2021 Vaping Use Vaping status: Never Used Substance Use Topics Alcohol use: Yes Comment: 1 beer in 6 months Drug use: Not Currently Frequency: 14.0 times per week Types: Marijuana Comment: no IVDA PMH, Social history, family history and surgical history reviewed and updated in EMR REVIEW OF SYSTEMS: Un (more content not included)... Normal [facility] Cardiology Visit Reporton Cardiology Visit Report [facility] [address] [place] [address] [address] [place], [place] [address] OFFICE VISIT Date of Service: 10/31/24 MR#: [id number] Acct: [id number] Name: ONEILERICKSON PIERCE Alva Rep #: [id number] : 1960 Provider: RUBEN Yu Age/Sex: 64/M [place] [facility] [place] Signed HPI HPI History of Present Illness Details: Erickson Riggs is a 64-year-old male who presents to office today for follow-up for monitoring his cardiovascular health. Patient has a history of hypertension, obstructive sleep apnea noncompliant with CPAP and solitary kidney. Patient presented to the emergency room 05/29/2022 with chest discomfort described as arthritis in his breastbone. His troponin was normal, CXR did not demonstrate any acute process, CTA was negative for PE and negative for dissection. Patient was admitted to [facility] 08/03/2024 for planned valve sparing aortic root and ascending aorta replacement graft, left atrial appendage exclusion along with intraoperative transesophageal echocardiogram. This was performed by Dr. Solano. Patient was admitted to ICU following the procedure. He was extubated postoperatively as expected but did require HFNC and NIV for multiple days and eventually weaned to 6 L nasal cannula. His course was complicated by intermittent confusion and ICU delirium. He did experience intermittent atrial fibrillation and sinus tachycardia and was initiated on amiodarone along with up titration of his beta-selene and initiated on anticoagulation. Course was also complicated with volume overload and he was treated with Bumex gtt. and eventually transition to IV pushes. He was also treated for a UTI. He did have 1 episode of blood in his stool requiring GI consultation; however, patient declined further workup as this is something he periodically experiences in the past. Patient was discharged to LT[facility], select for ongoing O2 weaning and therapy. He returned home on 09/05/2024. His hemoglobin was found to be low at 9.1 on 09/20/2024. Recheck 09/29/2024 demonstrated hemoglobin 9.5. Upon presentation today, patient reports doing well. He continues to recover from his hospitalization and feels stronger. He reports his energy is improving. He is working on cleaning his apartment as he was staying at his daughters while he was recovering. Home PT finished last week. He has been off of his O2 since last week and follows-up with pulmonology today. He has not been utilizing PAP therapy secondary to inability to sleep with it on and due to rent cost of the equipment. He sleeps in a chair secondary to back pain. Further ROS below. He has not taken his morning medications today. Intake Vital Signs 09/20/24 07:21 10/31/24 07:34 10/31/24 10:00 Height 6 ft 6 ft Weight: 332 lb 329 lb BMI 45.0 44.6 BP 122/65 H 161/87 H 134/74 H Blood Pressure Location Rt brachial Lt brachial Lt brachial Position Sitting Sitting Sitting Respiration 20 H 18 Pulse 73 70 Pulse Source Monitor Monitor Pulse Oximetry (%) 94 97 Oxygen Delivery Method nasal canula Oxygen Flow Rate (L/min) 2 Intake Visit Reasons: 4-6 WK FU Tallow Refiner Required: No Is patient in pain?: No Allergies aspirin Allergy (Verified 10/31/24 09:17) GI upset, hives Penicillins Allergy (Verified 10/31/24 09:17) GI upset, hives Medications ???Medication ???Instructions ???Recorded ???Confirmed ???Type doxazosin 4 mg tablet 8 mg PO DAILY 09/20/24 10/31/24 Hi story insulin glargine 100 unit/mL 12 unit subcut QAM 09/20/24 History subcutaneous solution (Lantus U-100 Insulin) insulin regular human 100 unit/mL 15 unit subcut TID 09/20/2410/31 History injection solution (Humulin R Regular U-100 Insulin) metformin 500 mg tablet 500 mg PO BID 09/20/24 10/31/24 Hi story sennosides 8.6 mg tablet (Natural 8.6 mg PO QDAY 09/20/24 10/31/24 History Senna Laxative) apixaban 5 mg tablet (Eliquis) 5 mg PO .COMPLEX #180 tabs 5 10/31/24 Rx amiodarone 100 mg tablet 100 mg PO BID #180 tabs 10/06/24 0 10/31/24 Rx amlodipine 5 mg tablet 5 mg PO DAILY #90 tabs 10/06/24 Rx metoprolol succinate 100 mg 100 mg PO QDAY #90 tabs 10/06/24 0 10/31/24 Rx tablet,extended release 24 hr torsemide 20 mg tablet 20 mg PO QAM #90 tabs 10/06/2407/22 Rx famotidine 20 mg tablet 20 mg PO BID 10/31/24 10/31/24 His tory Ejection fraction %: 67 Have you fallen in the past year?: No PFSH Medical History Frequent headaches Ascending aortic aneurysm Essential (primary) hypertension Dyspnea on exertion Shortness of breath History of fractured rib H/O unilateral nephrectomy Obesity (BMI 30.0-34.9) Chronic back pain Obstructive sleep apnea CVA (cerebral vascular accident) Paroxysmal (more content not included)... Normal [facility] Eosinophil percentageOrdered By: Nathan Mack on 10-31-2024 Eosinophils/100 WBC (Bld) 2.6 % 0-5 [facility] Erythrocyte distribution wid th ratioOrdered By: Nathan Mack on 10-31-2024 Erythrocyte distribution width (RBC) [Ratio] 13.4 % 11.6-14.6 [facility] Erythrocyte distribution wid th standard deviationOrdered By: Nathan Mack on 10-31-2024 Erythrocyte distribution width (RBC) [Ratio] 42.2 fl 35.1-43.9 [facility] Hematocrit Auto (Bld) [Volum e fraction]Ordered By: Nathan Mack on 10-31-2024 Hematocrit (Bld) [Volume fraction] 30.0 % Low 40-54 [facility] Hemoglobin measurementOrdere d By: Nathan Mack on 10-31-2024 Hemoglobin (Bld) [Mass/Vol] 9.3 g/dL Low 13.0-16.5 [facility] Immature granulocytes/100 WB C Auto (Bld)Ordered By: Nathan Mack on 10-31-2024 Immature granulocytes/100 WBC (Bld) 0.400 % 0.0-0.9 [facility] Comment on above: IG% - Immature Granu locytes (promyelocytes, myelocytes and metamyelocytes) > 1% indicates that a LEFT SHIFT is Present. MCV (mean corpuscular volume ) determinationOrdered By: Nathan Mack on 10-31-2024 MCV (RBC) [Entitic vol] 85.7 fL 80-94 [facility] Mean corpuscular hemoglobin (MCH) determinationOrdered By: Nathan Mack on 10-31-2024 MCH (RBC) [Entitic mass] 26.6 pg Low 27.0-32.0 [facility] Mean corpuscular hemoglobin concentration (MCHC) determinationOrdered By: Nathan Mack on 10-31-2024 MCHC (RBC) [Mass/Vol] 31.0 g/dL Low 32-36 [facility] Mean platelet volume determi nationOrdered By: Nathan Mack on 10-31-2024 Platelet mean volume (Bld) [Entitic vol] 10.5 fL 6.2-12.0 [facility] Monocyte percentageOrdered B y: Nathan Mack on 10-31-2024 Monocytes/100 WBC (Bld) 9.4 % 0-10 [facility] Neutrophil percentageOrdered By: Nathan Mack on 10-31-2024 Neutrophils/100 WBC (Bld) 70.7 % High 47-70 [facility] Nucleated red blood cell per centageOrdered By: Nathan Mack on 10-31-2024 Nucleated RBC/100 WBC (Bld) [Ratio] 0 % 0-5 [facility] Platelet countOrdered By: Trisha Mack on 10-31-2024 Platelets (Bld) [#/Vol] 198 10*3/uL 150-450 [facility] RBC Auto (Bld) [#/Vol]Ordere d By: Nathan Mack on 10-31-2024 RBC (Bld) [#/Vol] 3.50 10*6/uL Low 4.6-6.2 [facility] White blood cell (WBC) count Ordered By: Nathan Mack on 10-31-2024 WBC (Bld) [#/Vol] 7.8 10*3/uL 4.4-11.0 [facility] LUNG DIFFUSION CAPACITY (FADUMO O)on 10-28-2024 LUNG DIFFUSION CAPACITY (DLCO) [facility] [place] [address] [place] [address] Test Date: 2024-10-28 Pat Name: ERICKSON RIGGS Department: Room: Gender: Male Gateman: : 1960 Requested By: Order Number: [id number] Reading MD: Benjamin Pardo MD Interpretive Statements PRE AND POST BD: Current ATS/ERS acceptability and repeatability standards for spirometry met. Start of test and EOFE criteria met. Medications and Allergies were reviewed for possible drug interactions per policy. No contraindications or sensitivities were noted. No Meds taken before testing. 4 puffs Albuterol (360 mcg) delivered by MDI via holding chamber. HR pre =68/min, HR post =66/min. Current ATS/ERS acceptability and repeatability standards for DLCO met with 2 acceptable maneuvers. DLCO is hemoglobin corrected. Hemoglobin obtained from [facility] on 10/24/24.//LC IMPRESSION: Spirometry indicates no obstruction. The reduced FVC could indicate restriction, recommend lung volumes for definitive determination. There is no significant bronchodilator response. Clinical improvement following bronchodilator therapy may occur with limited spirometric improvement. The kCO (DLCO/VA) reflects a normal transfer/diffusion of CO from the alveolar regions to the blood. Clinical correlation recommended. Electronically Signed On 10-28-2024 13:23:34 EDT by Benjamin Pardo MD ID: [id number] Name: ONEIL ERICKSON B Race: White Ht: 71.26 in Wt: 333.60 lbs Age: 64 Gender: Male : 1960 Dx: Shortness of breath Smoking Hx: Non-smoker Doctor: MORGAN VERDE Test Date: 10/28/2024 Site: Tech: Marguerite Gutierrez PRE-BRONCH POST-BRONCH Lee LLN Pred ULN %Pred ZScore Lee %Pred %Chg ZScore SPIROMETRY FVC 2.72 3.28 4.39 5.51 62 -2.49 3.04 69 7 -2.00 FEV1 1.76 2.46 3.34 4.17 52 -2.85 1.98 59 6 -2.48 FEV1/FVC 0.65 0.64 0.77 0.87 84 -1.58 0.65 84 0 -1.54 FEFMax 4.38 6.64 9.04 11.44 48 -3.19 4.93 54 12 -2.82 FEF50 1.28 2.31 4.43 6.56 28 -2.44 1.78 40 38 -2.06 FIF50 2.66 3.23 21 FEF50/FIF50 0.48 90-100 0.55 14 FIVC 2.67 2.85 6 PSP46-93 0.88 1.26 2.74 4.80 32 -2.21 1.42 51 61 -1.43 ExpiredTime 9.52 10.55 10 TimeToFEFMax 0.14 0.09 -36 MINERVA 0.09 0.08 -13 VolExtrap% 3 3 -22 LUNG DIFFUSION DLCOunc 20.14 20.45 27.57 36.02 73 -1.72 DLCOStdPB 19.85 20.45 27.57 36.02 71 -1.80 DLCORefHb 19.85 23.53 84 VA 4.90 5.46 6.77 8.18 72 -2.40 Kco 4.06 3.07 4.10 5.22 98 -0.07 Hgb 10.30 12-18 Comments: PRE AND POST BD: Current ATS/ERS acceptability and repeatability standards for spirometry met. Start of test and EOFE criteria met. Medications and Allergies were reviewed for possible drug interactions per policy. No contraindications or sensitivities were noted. No Meds taken before testing. 4 puffs Albuterol (360 mcg) delivered by MDI via holding chamber. HR pre =68/min, HR post =66/min. Current ATS/ERS acceptability and repeatability standards for DLCO met with 2 acceptable maneuvers. DLCO is hemoglobin corrected. Hemoglobin obtained from [facility] on 10/24/24.//LC Normal [facility] No Panel Informationon 10-28 [facility] [address] [place] [address] Test Date: 2024-10-28 Pat Name: ERICKSON RIGGS Department: Room: Gender: Male Gateman: : 1960 Requested By: Order Number: [id number] Reading MD: Benjamin Pardo MD Interpretive Statements PRE AND POST BD: Current ATS/ERS acceptability and repeatability standards for spirometry met. Start of test and EOFE criteria met. Medications and Allergies were reviewed for possible drug interactions per policy. No contraindications or sensitivities were noted. No Meds taken before testing. 4 puffs Albuterol (360 mcg) delivered by MDI via holding chamber. HR pre =68/min, HR post =66/min. Current ATS/ERS acceptability and repeatability standards for DLCO met with 2 acceptable maneuvers. DLCO is hemoglobin corrected. Hemoglobin obtained from [facility] on 10/24/24.//LC IMPRESSION: Spirometry indicates no obstruction. The reduced FVC could indicate restriction, recommend lung volumes for definitive determination. There is no significant bronchodilator response. Clinical improvement following bronchodilator therapy may occur with limited spirometric improvement. The kCO (DLCO/VA) reflects a normal transfer/diffusion of CO from the alveolar regions to the blood. Clinical correlation recommended. Electronically Signed On 10-28-2024 13:23:34 EDT by Benjamin Pardo MD ID: [id number] Name: ERICKSON RIGGS Race: White Ht: 71.26 in Wt: 333.60 lbs Age: 64 Gender: Male : 1960 Dx: Shortness of breath Smoking Hx: Non-smoker Doctor: MORGAN VERDE Test Date: 10/28/2024 Site: Tech: Marguerite Gutierrez PRE-BRONCH POST-BRONCH Lee LLN Pred ULN %Pred ZScore Lee %Pred %Chg ZScore SPIROMETRY FVC 2.72 3.28 4.39 5.51 62 -2.49 3.04 69 7 -2.00 FEV1 1.76 2.46 3.34 4.17 52 -2.85 1.98 59 6 -2.48 FEV1/FVC 0.65 0.64 0.77 0.87 84 -1.58 0.65 84 0 -1.54 FEFMax 4.38 6.64 9.04 11.44 48 -3.19 4.93 54 12 -2.82 FEF50 1.28 2.31 4.43 6.56 28 -2.44 1.78 40 38 -2.06 FIF50 2.66 3.23 21 FEF50/FIF50 0.48 90-100 0.55 14 FIVC 2.67 2.85 6 PTX74-92 0.88 1.26 2.74 4.80 32 -2.21 1.42 51 61 -1.43 ExpiredTime 9.52 10.55 10 TimeToFEFMax 0.14 0.09 -36 MINERVA 0.09 0.08 -13 VolExtrap% 3 3 -22 LUNG DIFFUSION DLCOunc 20.14 20.45 27.57 36.02 73 -1.72 DLCOStdPB 19.85 20.45 27.57 36.02 71 -1.80 DLCORefHb 19.85 23.53 84 VA 4.90 5.46 6.77 8.18 72 -2.40 Kco 4.06 3.07 4.10 5.22 98 -0.07 Hgb 10.30 12-18 Comments: PRE AND POST BD: Current ATS/ERS acceptability and repeatability standards for spirometry met. Start of test and EOFE criteria met. Medications and Allergies were reviewed for possible drug interactions per policy. No contraindications or sensitivities were noted. No Meds taken before testing. 4 puffs Albuterol (360 mcg) delivered by MDI via holding chamber. HR pre =68/min, HR post =66/min. Current ATS/ERS acceptability and repeatability standards for DLCO met with 2 acceptable maneuvers. DLCO is hemoglobin corrected. Hemoglobin obtained from [facility] on 10/24/24.// PULMONARY FUNCTION LAB [facility] SPIROMETRY WITH DILATOR IF O BSTRUCTEDon 10-28-2024 DLCO (ml/min/mmHg) 20.14 ml/min/mmHg [facility] DLCO LLN (ml/min/mmHg) 20.45 ml/min/mmHg [facility] DLCO PREDICTED (ml/min/mmHg) 27.57 ml/min/mmHg [facility] DLCO ULN (ml/min/mmHg) 36.02 ml/min/mmHg [facility] DLCO/VA (ml/min/mmHg/L) 0.04 ml/m in/mmHg /L [facility] DLCO/VA PREDICTED (ml/min/mmHg/L) 0.04 ml/min/mmHg /L [facility] DLCO/VAcor (ml/min/mmHg/L) 0.04 ml/min/mmHg /L [facility] DLCOcor (ml/min/mmHg) 19.85 ml/min/mmHg [facility] DLCOcor PREDICTED (ml/min/mmHg) 23.53 ml/min/mmHg [facility] ERV PREDICTED (L) 1.46 L/S [facility] FEF25% POST (L/S) 3.92 L/S [facility] FEF25% PRE (L/S) 3.22 L/S [facility] [id number]% LLN (L/S) 1.26 L/S [facility] BWV71-71% POST (L/S) 1.42 L/S [facility] DJN89-17% PRE (L/S) 0.88 L/S [facility] IWE32-67% PREDICTED (L/S) 2.74 L/S [facility] FEF75% LLN (L/S) 0.3 L/S [facility] FEF75% POST (L/S) 0.51 L/S [facility] FEF75% PRE (L/S0 0.24 L/S [facility] FEF75% PREDICTED (L/S) 0.79 L/S [facility] FEF75% ULN (L/S) 1.95 L/S [facility] FET POST (S) 10.55 S [facility] FET PRE (S) 9.52 S [facility] FEV1 LLN (L) 2.46 L [facility] FEV1 PRE (L) 1.76 L [facility] FEV1 PREDICTED (L) 3.34 L [facility] FEV1 ULN (L) 4.17 L [facility] FEV1/FVC LLN (%) 64 % [facility] FEV1/FVC POST (%) 65 % [facility] FEV1/FVC PRE (%) 65 % [facility] FEV1/FVC PREDICTED (%) 77 % [facility] FEV1_POST (L) 1.98 L [facility] FVC LLN (L) 3.28 L [facility] FVC POST (L) 3.04 L [facility] FVC PRE (L) 2.72 [facility] FVC PREDICTED (L) 4.39 L [facility] FVC ULN (L) 5.51 L [facility] IC PREDICTED (L) 2.92 L/S [facility] PEF LLN (L/S) 6.64 L/S [facility] PEF POST (L/S) 4.93 L/S [facility] PEF PRE (L/S) 4.38 L/S [facility] PEF ULN (L/S) 11.44 L/S [facility] SVC LLN (L) 3.28 L/S [facility] SVC PREDICTED (L) 4.39 L/S [facility] SVC ULN (L) 5.51 L/S [facility] VA (L) 4.9 L [facility] VA PREDICTED (L) 6.77 L [facility] SPIROMETRY WITH DILATOR IF OBSTRUCTED [facility] [address] [place] [address] Test Date: 2024-10-28 Pat Name: ERICKSON RIGGS Department: Room: Gender: Male Gateman: : 1960 Requested By: Order Number: [id number] Reading MD: Benjamin Pardo MD Interpretive Statements PRE AND POST BD: Current ATS/ERS acceptability and repeatability standards for spirometry met. Start of test and EOFE criteria met. Medications and Allergies were reviewed for possible drug interactions per policy. No contraindications or sensitivities were noted. No Meds taken before testing. 4 puffs Albuterol (360 mcg) delivered by MDI via holding chamber. HR pre =68/min, HR post =66/min. Current ATS/ERS acceptability and repeatability standards for DLCO met with 2 acceptable maneuvers. DLCO is hemoglobin corrected. Hemoglobin obtained from [facility] on 10/24/24.//LC IMPRESSION: Spirometry indicates no obstruction. The reduced FVC could indicate restriction, recommend lung volumes for definitive determination. There is no significant bronchodilator response. Clinical improvement following bronchodilator therapy may occur with limited spirometric improvement. The kCO (DLCO/VA) reflects a normal transfer/diffusion of CO from the alveolar regions to the blood. Clinical correlation recommended. Electronically Signed On 10-28-2024 13:23:34 EDT by Benjamin Pardo MD ID: [id number] Name: ERICKSON RIGGS Race: White Ht: 71.26 in Wt: 333.60 lbs Age: 64 Gender: Male : 1960 Dx: Shortness of breath Smoking Hx: Non-smoker Doctor: MORGAN VERDE Test Date: 10/28/2024 Site: Tech: Marguerite Gutierrez PRE-BRONCH POST-BRONCH Lee LLN Pred ULN %Pred ZScore Lee %Pred %Chg ZScore SPIROMETRY FVC 2.72 3.28 4.39 5.51 62 -2.49 3.04 69 7 -2.00 FEV1 1.76 2.46 3.34 4.17 52 -2.85 1.98 59 6 -2.48 FEV1/FVC 0.65 0.64 0.77 0.87 84 -1.58 0.65 84 0 -1.54 FEFMax 4.38 6.64 9.04 11.44 48 -3.19 4.93 54 12 -2.82 FEF50 1.28 2.31 4.43 6.56 28 -2.44 1.78 40 38 -2.06 FIF50 2.66 3.23 21 FEF50/FIF50 0.48 90-100 0.55 14 FIVC 2.67 2.85 6 PYG03-69 0.88 1.26 2.74 4.80 32 -2.21 1.42 51 61 -1.43 ExpiredTime 9.52 10.55 10 TimeToFEFMax 0.14 0.09 -36 MINERVA 0.09 0.08 -13 VolExtrap% 3 3 -22 LUNG DIFFUSION DLCOunc 20.14 20.45 27.57 36.02 73 -1.72 DLCOStdPB 19.85 20.45 27.57 36.02 71 -1.80 DLCORefHb 19.85 23.53 84 VA 4.90 5.46 6.77 8.18 72 -2.40 Kco 4.06 3.07 4.10 5.22 98 -0.07 Hgb 10.30 12-18 Comments: PRE AND POST BD: Current ATS/ERS acceptability and repeatability standards for spirometry met. Start of test and EOFE criteria met. Medications and Allergies were reviewed for possible drug interactions per policy. No contraindications or sensitivities were noted. No Meds taken before testing. 4 puffs Albuterol (360 mcg) delivered by MDI via holding chamber. HR pre =68/min, HR post =66/min. Current ATS/ERS acceptability and repeatability standards for DLCO met with 2 acceptable maneuvers. DLCO is hemoglobin corrected. Hemoglobin obtained from [facility] on 10/24/24.//LC FVC_PRE (L) : 2.72 L FVC_POST (L) : 3.04 L FVC_PRED (L) : 4.39 L FVC_LLN (L) : 3.28 L FVC_ULN (L) : 5.51 L FEV1_PRE (L) : 1.76 L FEV1_POST (L) : 1.98 L FEV1_PRED (L) : 3.34 L FEV1_LLN (L) : 2.46 L FEV1_ULN (L) : 4.17 L FEV1/FVC_PRE (%) : 65 % FEV1/FVC_POST (%) : 65 % FEV1/FVC_PRED (%) : 77 % FEV1/FVC_LLN (%) : 64 % GXE72_DIP (L/S) : 3.22 L/S SFA20_LZBM (L/S) : 3.92 L/S CKL62_PGG (L/S) : 0.24 L/S OJB54_XSXY (L/S) : 0.51 L/S VXT05_FTBA (L/S) : 0.79 L/S KJQ28_ZLP (L/S) : 0.30 L/S YEX34_UGV (L/S) : 1.95 L/S VAQ79-95%_PRE (L/S) : 0.88 L/S JEQ40-33%_POST (L/S) : 1.42 L/S XIP98-08%_PRED (L/S) : 2.74 L/S FZL69-75%_LLN (L/S) : 1.26 L/S PEF_PRE (L/S) : 4.38 L/S PEF_POST (L/S) : 4.93 L/S PEFMAX_LLN (L/S) : 6.64 L/S PEFMAX_ULN (L/S) : 11.44 L/S SVC_PRED (L) : 4.39 L/S SVC_LLN (L) : 3.28 L/S SVC_ULN (L/S) : 5.51 L/S IC_PRED (L) : 2.92 L/S ERV_PREDICTED (L) : 1.46 L/S DLCO (ML/MIN/MMHG) : 20.14 ml/min/mmHg DLCO_PRED (ML/MIN/MMHG) : 27.57 ml/min/mmHg DLCO_LLN(ML/MIN/MMHG ) : 20.45 ml/min/mmHg DLCO_ULN (ML/MIN/MMHG) : 36.02 ml/min/mmHg FET_PRE (S) : 9.52 S FET_POST (S) : 10.55 S VA (L) : 4.90 L VA_PRD (L) : 6.77 L DLCO/VA (ML/MIN/MMHG/L) : 0.04 ml/min/mmHg/L DLCO_VA_PRED (L) : 0.04 ml/min/mmHg/L DLCOCOR (ML/MIN/MMHG) : 19.85 ml/min/mmHg DLCOCOR_PRED (ML/MIN/MMHG) : 23.53 ml/min/mmHg DLCO/VACOR (ML/MIN/MMHG/L) : 0.04 ml/min/mmHg/L Normal [facility] ALBUMIN/CREATININE RATIO, UR INEon 10-24-2024 Albumin DL <= 20 mg/L (U) [Mass/Vol] 36.2 mg/L Normal [facility] Comment on above: Order Comment: Speci men Type: URINE SPECIMENOrdering Facility: [facility] Address: [address] [place] [address] Performed By: #### 6 30-4 #### [facility] CLIA [id number] [address] [place] [address] [place] [facility] Albumin/Creatinine (U) [Mass ratio] 24 mg/g Normal <30 [facility] Comment on above: Order Comment: Speci men Type: URINE SPECIMENOrdering Facility: [facility] Address: [address] [place] [address] Result Comment: Adul t Male and Female Nephrotic Criteria: <30 mg/g is considered normal to mildly increased 30-300 mg/g is considered moderately increased >300 mg/g is considered severely increased KDIGO. (2013). KDIGO 2012 Clinical Practice Guideline for the Evaluation and Management of Chronic Kidney Disease. Official Journal of the International Society of Nephrology, 3(1), 1-150. Performed By: #### 6 30-4 #### [facility] CLIA [id number] [address] [place] [address] [place] Creatinine (U) [Mass/Vol] 150.7 mg/dL Normal 20.0-300. 0 [facility] Comment on above: Order Comment: Speci men Type: URINE SPECIMENOrdering Facility: [facility] Address: [address] [place] [address] Performed By: #### 6 30-4 #### [facility] CLIA [id number] [address] [place] [address] [place] Bacteria Ur Culton Bacteria identified Cx Nom (U) ORGANISM ID: 1 <10,000 CFU/ml Normal urogenital fabian Normal [facility] Comment on above: Performed By: #### 6 30-4 #### [facility] CLIA [id number] [address] [place] [address] [place] CBC panel Auto (Bld)on 10-24 Erythrocyte distribution width (RBC) [Ratio] 13.2 % Normal 11.5-15.0 [facility] Comment on above: Order Comment: Speci men Type: BLOOD SPECIMENOrdering Facility: [facility] Address: [address] [place] [address] Performed By: #### 6 30-4 #### [facility] CLIA [id number] [address] [place] [address] [place] Hematocrit (Bld) [Volume fraction] 33.1 % Low 39.0-51.0 [facility] Comment on above: Order Comment: Speci men Type: BLOOD SPECIMENOrdering Facility: [facility] Address: [address] [place] [address] Performed By: #### 6 30-4 #### [facility] CLIA [id number] [address] [place] [address] [place] Hemoglobin (Bld) [Mass/Vol] 10.3 g/dL Low 13.0-17.0 [facility] Comment on above: Order Comment: Speci men Type: BLOOD SPECIMENOrdering Facility: [facility] Address: [address] [place] [address] Performed By: #### 6 30-4 #### [facility] CLIA [id number] [address] [place] [address] [place] MCH (RBC) [Entitic mass] 27.2 pg Normal 26.0-34.0 [facility] Comment on above: Order Comment: Speci men Type: BLOOD SPECIMENOrdering Facility: [facility] Address: [address] [place] [address] Performed By: #### 6 30-4 #### [facility] CLIA [id number] [address] [place] [address] [place] MCHC (RBC) [Mass/Vol] 31.1 g/dL Normal 30.5-36.0 [facility] Comment on above: Order Comment: Speci men Type: BLOOD SPECIMENOrdering Facility: [facility] Address: [address] [place] [address] Performed By: #### 6 30-4 #### [facility] CLIA [id number] [address] [place] [address] [place] MCV (RBC) [Entitic vol] 87.6 fL Normal 80.0-100.0 [facility] Comment on above: Order Comment: Speci men Type: BLOOD SPECIMENOrdering Facility: [facility] Address: [address] [place] [address] Performed By: #### 6 30-4 #### [facility] CLIA [id number] [address] [place] [address] [place] Nucleated RBC (Bld) [#/Vol] 10*3/uL Normal <0.01 [facility] Comment on above: Order Comment: Speci men Type: BLOOD SPECIMENOrdering Facility: [facility] Address: [address] [place] [address] Performed By: #### 6 30-4 #### [facility] CLIA [id number] [address] [place] [address] [place] Platelet mean volume (Bld) [Entitic vol] 11.1 fL Normal 9.0-12.7 [facility] Comment on above: Order Comment: Speci men Type: BLOOD SPECIMENOrdering Facility: [facility] Address: [address] [place] [address] Performed By: #### 6 30-4 #### [facility] CLIA [id number] [address] [place] [address] [place] Platelets (Bld) [#/Vol] 237 10*3/uL Normal 150-400 [facility] Comment on above: Order Comment: Speci men Type: BLOOD SPECIMENOrdering Facility: [facility] Address: [address] [place] [address] Performed By: #### 6 30-4 #### [facility] CLIA [id number] [address] [place] [address] [place] RBC (Bld) [#/Vol] 3.78 10*6/uL Low 4.20-6.00 [facility] Comment on above: Order Comment: Speci men Type: BLOOD SPECIMENOrdering Facility: [facility] Address: [address] [place] [address] Performed By: #### 6 30-4 #### [facility] CLIA [id number] [address] [place] [address] [place] WBC (Bld) [#/Vol] 9.18 10*3/uL Normal 3.70-11.00 [facility] Comment on above: Order Comment: Speci men Type: BLOOD SPECIMENOrdering Facility: [facility] Address: [address] [place] [address] Performed By: #### 6 30-4 #### [facility] CLIA [id number] [address] STATES OF [facility] CNOVon 10-24-2024 CNOV Office Visit (PULMWS) ERICKSON RIGGS ([id number]) 1960 M Date Time Provider Department 10/24/24 11:00 AM MORGAN VERDE PULMWS During your visit today, we recorded the following information about you: Pulse Respiration Blood pressure Weight 67/minute 18/minute 131/72 152 kg Height 1.829 m Morgan Verde MD 10/24/2024 12:25 PM Signed . Respiratory [place] Note Patient name: Erickson Riggs PCP: Mundo Plasencia MD Referring Physician: Recording using ambient Mobile [employer] software for draft documentation of the visit was discussed with the patient/authorized associate financial representative; all questions welcomed and answered. Patient/authorized associate financial representative agreed to proceed Consultation requested by Dr. White for an opinion regarding respiratory failure. My final recommendations will be communicated back to the requesting physician by way of shared Medical record or letter to requesting physician via US mail. CC: Respiratory failure HPI: Erickson Riggs 64 year old male former less than 20 pack year smoker with PMH significant for morbid obesity, single kidney (nephrectomy for hydronephrosis), HTN, DM, SONIA unable to tolerate CPAP, COPD, PAF treated with amiodarone and Eliquis, history of stroke with recent history notable for and aortic valve replacement with left atrial clip. Postoperative course complicated by respiratory failure, bilateral pleural effusions, required BiPAP, delirium, UTI with urinary retention. Hospital stay [facility] 08/16-09/05/24. Discharged with supplemental oxygen and NIV. Required stay in LTACH. Patient had shortness of breath and fluid retention prior to his hospitalization. Still has problems with fluid retention but feels that his dyspnea has slightly improved since he was placed on supplemental oxygen. He previously did not tolerate CPAP for his morbid obesity and sleep apnea and currently does not use his NIV on a nightly basis. He mainly has dyspnea with exertion, poor endurance, requires use of wheelchair if walking for prolonged distances. He denies significant wheezing. If he does hear wheezing it clears once he is able to expectorate phlegm. He does not have chronic cough with copious amounts of sputum production. Shortness of breath worsened by exposure to heat and humidity, activity and exposure to strong odors or fumes. He has a longstanding history of recurrent bronchitis dating back to his teenage years. He has albuterol which he rarely uses. Review of his arterial blood gas shows that he likely had chronic CO2 retention prior to his surgery which I suspect is related to obesity hypoventilation syndrome. Last metabolic panel in August showed a CO2 of 32 DME: [facility] 2 L NIV DATA: PFT 2020: FVC 4.40 L 92% FEV1 2.88 L 78% FEV1/FVC 65% RV 3.41 L 147% TLC 7.53 L 104% RV/TLC 45% Labs: Component Ref Range AND Units 1 mo ago pH, Venous 7.330 - 7.430 7.347 pCO2, Venous 40.0 - 55.0 mm Hg 74 High pO2, Venous mm Hg 47.1 HCO3, Venous 23.0 - 27.0 mmol/L 39.7 High O2 Sat, Venous % 76.2 Base Excess, Venous -3.0 - 3.0 mmol/L 11.4 High Hgb, blood gas >7.0 g/dl 11.5 TCO2, Venous 24.0 - 28.0 mmol/L 41.9 High Source Of Oxygen Non-Invasive Ventilator Imaging / Diagnostic Studies: CXR from [facility] 07/2024: Review of chest x-ray shows post heart surgery with presence of sternal wires, cardiomegaly and possible bilateral small effusions. 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 Cholelithiasis 07/17/2014 Chronic bronchitis, obstructive (HCC) 07/08/2020 Chronic pain syndrome 05/09/2019 Chronic tension-type headache, not intractable 03/1969 after reading, focusing 20 minutes COVID 11/26/2020 CVA (cerebral infarction) 02/2011 Ghazala DDD (degenerative disc disease), lumbar 2000 Gout H/O kidney removal 1998 right Hypercalciuria 04/22/2011 Hypertension Kidney stones New onset type 2 diabetes mellitus (HCC) 07/27/2024 Obesity (BMI 30-39.9) 07/25/2014 SONIA (obstructive sleep apnea) 07/25/2014 Paroxysmal atrial fibrillation (HCC) 10/27/2017 Dr.Daniel Mills[facility] S/P aorta repair-Valve sparing aortic root, ascending aorta replacement 30mm Cardioroot graft; Left atrial appendage exclusion 40mm Atriclip; ENRIQUE 08/03/2024 Stroke (cerebrum) (HCC) Tobacco abuse 07/25/2014 ALLERGIES Allergen Reactions Penicillins Hives Hives or GI upset-patient unsure Asa [Aspirin] Hives, GI Upset apixaban (ELIQUIS) 5 mg tab(s) Take by mouth two times a day. torsemide (DEMADEX) 20 mg tablet Take 20 mg by mouth once daily. sennosides (SENNA-C ORAL) Take by mouth once daily. [START ON 11/03/2024] famotidine (PEPCID) 20 mg tablet Take 1 tablet by mouth two times a day. Patie (more content not included)... Normal [facility] Comprehensive metabolic 2000 panelon 10-24-2024 Albumin [Mass/Vol] 4.2 g/dL Normal 3.9-4.[address] [facility] Comment on above: Order Comment: Speci men Type: BLOOD SPECIMENOrdering Facility: [facility] Address: [address] [place] [address] Performed By: #### 6 30-4 #### [facility] CLIA [id number] [address] [place] [address] [place] ALP [Catalytic activity/Vol] 87 U/L Normal 38-113 [facility] Comment on above: Order Comment: Speci men Type: BLOOD SPECIMENOrdering Facility: [facility] Address: [address] [place] [address] Performed By: #### 6 30-4 #### [facility] CLIA [id number] [address] [place] [address] [place] ALT [Catalytic activity/Vol] 13 U/L Normal 10-54 [facility] Comment on above: Order Comment: Speci men Type: BLOOD SPECIMENOrdering Facility: [facility] Address: [address] [place] [address] Performed By: #### 6 30-4 #### [facility] CLIA [id number] [address] [place], [place] [id number] [place] Anion gap [Moles/Vol] 13 mmol/L Normal 8-15 [facility] Comment on above: Order Comment: Speci men Type: BLOOD SPECIMENOrdering Facility: [facility] Address: [address] [place] [address] Performed By: #### 6 30-4 #### [facility] CLIA [id number] [address] [place] [address] [place] AST [Catalytic activity/Vol] 11 U/L Low 14-40 [facility] Comment on above: Order Comment: Speci men Type: BLOOD SPECIMENOrdering Facility: [facility] Address: [address] [place] [address] Performed By: #### 6 30-4 #### [facility] CLIA [id number] [address] [place] [address] [place] Bilirubin [Mass/Vol] 0.2 mg/dL Normal 0.2-1.3 [facility] Comment on above: Order Comment: Speci men Type: BLOOD SPECIMENOrdering Facility: [facility] Address: [address] [place] [address] Performed By: #### 6 30-4 #### [facility] CLIA [id number] [address] [place] [address] [place] Calcium [Mass/Vol] 9.6 mg/dL Normal 8.5-10.[address] [facility] Comment on above: Order Comment: Speci men Type: BLOOD SPECIMENOrdering Facility: [facility] Address: [address] [place] [address] Performed By: #### 6 30-4 #### [facility] CLIA [id number] [address] [place] [address] [place] Chloride [Moles/Vol] 99 mmol/L Normal 98-107 [facility] Comment on above: Order Comment: Speci men Type: BLOOD SPECIMENOrdering Facility: [facility] Address: [address] [place] [address] Performed By: #### 6 30-4 #### [facility] CLIA [id number] [address] [place] [address] [place] CO2 [Moles/Vol] 30 mmol/L Normal 22-30 [facility] Comment on above: Order Comment: Speci men Type: BLOOD SPECIMENOrdering Facility: [facility] Address: [address] [place] [address] Performed By: #### 6 30-4 #### [facility] CLIA [id number] [address] [place] [address] [place] Creatinine [Mass/Vol] 1.21 mg/dL Normal 0.73-1.22 [facility] Comment on above: Order Comment: Speci men Type: BLOOD SPECIMENOrdering Facility: [facility] Address: [address] [place] [address] Performed By: #### 6 30-4 #### [facility] CLIA [id number] [address] [place] [address] [place] eGFRcr SerPlBld CKD-EPI 2020 66 mL/min/1.73m??? Normal >=60 [facility] Comment on above: Order Comment: Speci men Type: BLOOD SPECIMENOrdering Facility: [facility] Address: [address] [place] [address] Result Comment: Maria De Jesus mated Glomerular Filtration Rate (eGFR) is calculated using the 2020 CKD-EPI creatinine equation. This equation utilizes serum creatinine, sex, and age as parameters. The creatinine assay has traceable calibration to isotope dilution-mass spectrometry. Refer to KDIGO guidelines for clinical interpretation. In patients with unstable renal function, e.g. those with acute kidney injury, the eGFR may not accurately reflect actual GFR. Performed By: #### 6 30-4 #### [facility] CLIA [id number] [address] [place] [address] [place] Glucose [Mass/Vol] 101 mg/dL High 74-[address] [facility] Comment on above: Order Comment: Speci men Type: BLOOD SPECIMENOrdering Facility: [facility] Address: [address] [place] [address] Result Comment: The [place] Diabetes Association (ADA) provides guidance for cutoff values for fasting glucose and random glucose. The ADA defines fasting as no caloric intake for at least 8 hours. Fasting plasma glucose results between 100 to 125 mg/dL indicate increased risk for diabetes (prediabetes). Fasting plasma glucose results greater than or equal to 126 mg/dL meet the criteria for diagnosis of diabetes. In the absence of unequivocal hyperglycemia, results should be confirmed by repeat testing. In a patient with classic symptoms of hyperglycemia or hyperglycemic crisis, random plasma glucose results greater than or equal to 200 mg/dL meet the criteria for diagnosis of diabetes. Reference: Standards of Medical Care in Diabetes 2016, [place] Diabetes Association. Diabetes Care. 2016.39(Suppl 1). Performed By: #### 6 30-4 #### [facility] CLIA [id number] [address] [place] [address] [place] Potassium [Moles/Vol] 4.3 mmol/L Normal 3.7-5.1 [facility] Comment on above: Order Comment: Speci men Type: BLOOD SPECIMENOrdering Facility: [facility] Address: [address] [place] [address] Performed By: #### 6 30-4 #### [facility] CLIA [id number] [address] [place] [address] [place] Protein [Mass/Vol] 7.1 g/dL Normal 6.3-8.[address] [facility] Comment on above: Order Comment: Speci men Type: BLOOD SPECIMENOrdering Facility: [facility] Address: [address] [place] [address] Performed By: #### 6 30-4 #### [facility] CLIA [id number] [address] [place] [address] [place] Sodium [Moles/Vol] 142 mmol/L Normal 136-[address] [facility] Comment on above: Order Comment: Speci men Type: BLOOD SPECIMENOrdering Facility: [facility] Address: [address] [place] [address] Performed By: #### 6 30-4 #### [facility] CLIA [id number] [address] [place] [address] [place] Urea nitrogen [Mass/Vol] 19 mg/dL Normal 9-24 [facility] Comment on above: Order Comment: Speci men Type: BLOOD SPECIMENOrdering Facility: [facility] Address: [address] [place] [address] Performed By: #### 6 30-4 #### [facility] CLIA [id number] [address] [place] [address] [place] HbA1c (Bld)on 10-24-2024 Average glucose Estimated from glycated hemoglobin (Bld) [Mass/Vol] 111 mg/dL Normal [facility] Comment on above: Order Comment: Speci men Type: BLOOD SPECIMENOrdering Facility: [facility] Address: [address] [place] [address] Result Comment: eAG: (Estimated average glucose) is a calculated value from HgbA1c and is associate financial representative of the average blood glucose level in the last 2-3 month period. Performed By: #### 6 30-4 #### [facility] CLIA [id number] [address] [place] [address] [place] HbA1c (Bld) [Mass fraction] 5.5 % Normal 4.3-5.6 [facility] Comment on above: Order Comment: Speci men Type: BLOOD SPECIMENOrdering Facility: [facility] Address: [address] [place] [address] Result Comment: [place] Diabetes Association guidelines indicate that patients with HgbA1c in the range 5.7-6.4% are at increased risk for development of diabetes, and intervention by lifestyle modification may be beneficial. HgbA1c greater or equal to 6.5% is considered diagnostic of diabetes. Performed By: #### 6 30-4 #### [facility] CLIA [id number] [address] [place] [address] [place] Lipid 1996 panelon 5 Cholesterol [Mass/Vol] 159 mg/dL Normal <200 [facility] Comment on above: Order Comment: Betitoi men Type: BLOOD SPECIMENOrdering Facility: [facility] Address: [address] [place] [address] Result Comment: <200 mg/dL, Desirable 200-239 mg/dL, Borderline high >239 mg/dL, High Performed By: #### 6 30-4 #### [facility] CLIA [id number] [address] [place] [address] OF [facility] Cholesterol in HDL [Mass/Vol] 42 mg/dL Normal >39 [facility] Comment on above: Order Comment: Chuck estrada Type: BLOOD SPECIMENOrdering Facility: [facility] Address: [address] [place] [address] Result Comment: 40-5 9 mg/dL, Acceptable >59 mg/dL, High: Negative risk factor for coronary heart disease <40 mg/dL, Low: Positive risk factor for coronary heart disease Performed By: #### 6 30-4 #### [facility] CLIA [id number] [address] [place] [address] STATES OF [facility] Cholesterol in LDL [Mass/Vol] 94 mg/dL Normal <100 [facility] Comment on above: Order Comment: Chuck estrada Type: BLOOD SPECIMENOrdering Facility: [facility] Address: [address] [place] [address] Result Comment: <100 mg/dL, Optimal 100-129 mg/dL, Near optimal/above optimal 130-159 mg/dL, Borderline high 160-189 mg/dL, High >189 mg/dL, Very high Secondary prevention optimal LDL Cholesterol levels are recommended to be <70 mg/dL LDL cholesterol is calculated using the Onofre-NIH equation. Performed By: #### 6 30-4 #### [facility] IA [id number] [address] [place] [address] [place] Cholesterol in LDL/Cholesterol in HDL [Mass ratio] 2.24 {ratio} Normal <2.54 [facility] Comment on above: Order Comment: Speci men Type: BLOOD SPECIMENOrdering Facility: [facility] Address: [address] [place] [address] Result Comment: Hilda andersen: 1. National Cholesterol Education Program ATP III Guideline At-A-Glance Quick Desk Reference: National Heart, Lung, and Blood [place]. National Institutes of Health. 2001: NIH Publication No. 01-3305. 2. An International Atherosclerosis Society position paper: global recommendations for the management of dyslipidemia: executive summary, Atherosclerosis. 2014: 232(2):410-413. Performed By: #### 6 30-4 #### [facility] IA [id number] [address] [place] [address] [place] Cholesterol in VLDL [Mass/Vol] 20 mg/dL Normal <30 [facility] Comment on above: Order Comment: Chuck estrada Type: BLOOD SPECIMENOrdering Facility: [facility] Address: [address] [place] [address] Performed By: #### 6 30-4 #### [facility] IA [id number] [address] [place] [address] [place] Cholesterol non HDL [Mass/Vol] 117 mg/dL Normal <130 [facility] Comment on above: Order Comment: Chuck natalie Type: BLOOD SPECIMENOrdering Facility: [facility] Address: [address] [place] [address] Result Comment: <130 mg/dL, Optimal 130-159 mg/dL, Near optimal/above optimal 160-189 mg/dL, Borderline high 190-219 mg/dL, High >219 mg/dL, Very high Secondary prevention optimal non HDL Cholesterol levels are recommended to be <100 mg/dL Performed By: #### 6 30-4 #### [facility] CLIA [id number] [address] [place] [address] [place] Cholesterol.total/Cholest flaco in HDL [Mass ratio] 3.79 {ratio} Normal <5.10 [facility] Comment on above: Order Comment: Speci men Type: BLOOD SPECIMENOrdering Facility: [facility] Address: [address] [place] [address] Performed By: #### 6 30-4 #### [facility] CLIA [id number] [address] [place] [address] OF [facility] FASTING TIME 12 hrs Normal [facility] Comment on above: Order Comment: Speci men Type: BLOOD SPECIMENOrdering Facility: [facility] Address: [address] [place] [address] Performed By: #### 6 30-4 #### [facility] CLIA [id number] [address] [place] [address] [place] Triglyceride [Mass/Vol] 126 mg/dL Normal <150 [facility] Comment on above: Order Comment: Speci men Type: BLOOD SPECIMENOrdering Facility: [facility] Address: [address] [place] [address] Result Comment: <150 mg/dL, Normal 150-199 mg/dL, Borderline high 200-499 mg/dL, High >499 mg/dL, Very high Performed By: #### 6 30-4 #### [facility] CLIA [id number] [address] [place] [address] [place] XR CHEST 2V FRONTAL/LATon XR CHEST 2V FRONTAL/LAT * * *Final Repor t* * * DATE OF EXAM: Oct 24 2024 12:27PM [id number] - XR CHEST 2V FRONTAL/LAT / PROCEDURE REASON: * * * * Physician Interpretation * * * * EXAMINATION: CHEST RADIOGRAPH (2 VIEW FRONTAL and LATERAL) CLINICAL HISTORY: Status post cardiothoracic surgery MQ: [id number] EXAM DATE/TIME: 10/24/2024 12:27 PM COMPARISON: Chest x-ray dated 04/24/2022 RESULT: Lines, tubes, and devices: None. Lungs and pleura: No consolidation. No lung mass. No pleural effusion. No pneumothorax. Cardiomediastinal silhouette: Stable in size cardiomediastinal silhouette with postsurgical changes from interval median sternotomy and placement of atrial appendage clip. Bones and soft tissues: Degenerative changes are present within the thoracic spine. IMPRESSION: No acute radiographic abnormality. Smasher Hand: PSCB Transcribe Date/Time: Oct 25 2024 10:19A Dictated by : CRISTIAN PAUL MD This examination was interpreted and the report reviewed and electronically signed by: CRISTIAN PAUL MD on Oct 25 2024 10:20AM EST [id number] CN Normal [facility] Progress Noteon 10-19-2024 Progress Note Normal [facility] 10-11-2024 [facility] Telephone (INTMWS) ERICKSON RIGGS ([id number]) 1960 M Date Time Provider Department 10/11/24 [facility] INTMWS During your visit today, we recorded the following information about you: Jenny Garcia, RN 10/11/2024 12:30 PM Signed Madelin OT with [facility] calls and states that patient's blood pressure was elevated today at visit. When she was first there BP was 180/70. Madelin retook BP later and it was 150/70. Madelin reports that patient has scrotal swelling which was already reported to urology. Patient was started on Bactrim and had urinalysis done which showed no growth. Madelin reports that patient has had more anxiety. Madelin is asking about aripiprazole since provider had weaned patient off of medication. Madelin states to call daughter Maddie back with response. Please review and advise, XAVIER Boyce Victor H, MD 10/13/2024 12:41 PM Signed Patient was just seen and anxiety was not a concern. Continue to monitor BP which was normal here this week. Chica Bañuelos LPN 10/13/2024 4:32 PM Signed Left message for Maddie/daughter to call AND speak to nurse. Left msg on identified vm for Madelin/OT. Jenny Johnson LPN, RN 10/13/2024 4:49 PM Signed Patient's Son in law Hany calls back and notified of below. Hany voices understanding. Jenny Garcia RN Allergies As of Date: 10/11/2024 Noted Allergy Reaction PENICILLINS 04/11/2011 4 - Hives Comments: Hives or GI upset-patient unsure ASA (ASPIRIN) 07/28/2017 4 - Hives 8 - GI Upset Date Reviewed: 10/10/2024 Reviewed by: Chica Bañuelos LPN - Fully Assessed Reason for Visit: Patient Update [1234] Prescriptions as of 10/13/2024 - famotidine (PEPCID) 20 mg tablet Take 1 tablet by mouth two times a day. Patient should start on November 03, 2024. - sulfamethoxazole-tri methoprim (BACTRIM DS) 800-160 mg per tablet Take 1 tablet by mouth two times a day. - amiodarone (PACERONE) 100 mg tablet Take 1 tablet by mouth two times a day. - metoprolol succinate ER (TOPROL XL) 100 mg Take 1 tablet by mouth once daily. - doxazosin (CARDURA) 8 mg tablet Take 1 tablet by mouth daily at bedtime. - insulin glargine (LANTUS) 100 unit/mL injection Inject 12 Units subcutaneously two times a day with meals. - metFORMIN ER (GLUCOPHAGE XR) 500 mg 24 hr tablet Take 1 tablet by mouth two times a day with meals. - acetaminophen (TYLENOL) 325 mg tablet Take 650 mg by mouth every 6 hours as needed. - TRUE METRIX GLUCOSE TEST STRIP test strip use for glucose checks - TRUE METRIX GLUCOSE METER as directed. - insulin lispro 100 unit/mL injection Inject 0-12 Units subcutaneously. - polyethylene glycol 3350 17 gram packet Take 17 g by mouth at bedtime as needed. - amLODIPine (NORVASC) 5 mg tablet Take 1 tablet by mouth once daily. - hydrocortisone (ANUSOL-HC) 25 mg suppository 1 suppository by RECTAL route once daily as needed. Problem List As Of Date 10/11/2024 Noted Resolved Solitary kidney, acquired [Z90.5] 04/11/2011 Kidney stones [N20.0] 04/11/2011 12/29/2019 Abnormal PSA [R97.20] 04/11/2011 09/01/2018 Hypercalciuria [R82.994] 04/22/2011 12/29/2019 Cholelithiasis [K80.20] 07/17/2014 10/27/2017 Abdominal pain [R10.9] 07/17/2014 10/27/2017 Tobacco abuse [Z72.0] 07/25/2014 Severe sleep apnea [G47.30] 07/25/2014 07/25/2014 SONIA (obstructive sleep apnea) intolerant to CPA*07/25/2014 BPH with obstruction/lower urinary tract sympto*10/27/2017 Paroxysmal atrial fibrillation (HCC) [I48.0] 10/27/2017 Gout [M10.9] Hypertension [I10] Obesity, Class I, BMI 30-34.9 [E66.811] 04/25/2019 10/09/2021 Upper back pain [M54.9] 05/09/2019 10/09/2021 DDD (degenerative disc disease), lumbar [M51.36*05/09/2019 Neck pain [M54.2] 05/09/2019 10/09/2021 Chronic pain syndrome [G89.4] 05/09/2019 Chronic bronchitis, obstructive (HCC) [J44.89] 07/08/2020 Ascending aorta dilation [I77.810] 01/06/2019 07/27/2024 Obesity, Class II, BMI 35-39.9 [E66.812] 01/02/2021 10/09/2021 Obesity, Class III, BMI >= 40 [E66.813] 10/09/2021 Nodule of left lung [R91.1] 06/04/2022 Cardiomyopathy (HCC) [I42.9] 06/04/2022 Ascending aortic aneurysm [I71.21] 07/27/2024 New onset type 2 diabetes mellitus (HCC) [E11.9]07/27/2024 Respiratory failure with hypoxia (HCC) [J96.91] 09/08/2024 S/P aorta repair-Valve sparing aortic root, asc*08/03/2024 Encounter Status:Closed by JENNY GARCIA on 10/13/24 [facility] CNOVon 10-10-2024 CNOV Office Visit (INTMWS) ERICKSON RIGGS ([id number]) 1960 M Date Time Provider Department 10/10/24 3:00 PM MUNDO PLASENCIA INTMWS During your visit today, we recorded the following information about you: Pulse Blood pressure Weight 68/minute 124/68 150.2 kg Mundo Plasencia MD 10/10/2024 4:31 PM Signed This note was created using [employer]. Subjective Ericksonnay Riggs is a 64 year old male was here with his daughter. He was doing better. Catheter was out. He was off Abilify with no issues. His iyer catheter was removed by urology and he was urinating fine. [facility]. He was being treated for urinary tract infection. He did not bring his glucose meter, and he did not do his fasting labs. He was wondering about driving. He was still under Home [facility] for care, PT, and OT. Review of Systems Constitutional: Negative for fatigue. Respiratory: Negative for shortness of breath. Cardiovascular: Negative for chest pain and palpitations. Genitourinary: Negative for dysuria. Neurological: Negative for dizziness. Psychiatric/Behavior al: Negative for agitation and behavioral problems. ACTIVE PROBLEM LIST Solitary Kidney, Acquired Tobacco Abuse SONIA (obstructive sleep apnea) intolerant to CPAP Bph With Obstruction/Lower Urinary Tract Symptoms Paroxysmal Atrial Fibrillation (Hcc) Gout Hypertension Ddd (Degenerative Disc Disease), Lumbar Chronic Pain Syndrome Chronic Bronchitis, Obstructive (Hcc) Obesity, Class III, BMI >= 40 Nodule of Left Lung Cardiomyopathy (Hcc) Ascending Aortic Aneurysm New Onset Type 2 Diabetes Mellitus (Hcc) Respiratory Failure With Hypoxia (Hcc) S/P aorta repair-Valve sparing aortic root, ascending aorta replacement 30mm Cardioroot graft; Left atrial appendage exclusion 40mm Atriclip; ENRIQUE Social History Tobacco Use Smoking status: Former Current packs/day: 0.00 Average packs/day: 0.5 packs/day for 36.0 years (18.0 ttl pk-yrs) Types: Pipe, Cigarettes Start date: 04/04/1985 Quit date: 04/04/2021 Years since quittin.5 Smokeless tobacco: Never Tobacco comments: quit Mar 2021 Vaping Use Vaping status: Never Used Substance Use Topics Alcohol use: Yes Comment: 1 beer in 6 months Drug use: Yes Frequency: 14.0 times per week Types: Marijuana Comment: no IVDA Current Outpatient Medications Medication Sig [START ON 11/03/2024] famotidine (PEPCID) 20 mg tablet Take 1 tablet by mouth two times a day. Patient should start on November 03, 2024. sulfamethoxazole-tri methoprim (BACTRIM DS) 800-160 mg per tablet Take 1 tablet by mouth two times a day. amiodarone (PACERONE) 100 mg tablet Take 1 tablet by mouth two times a day. metoprolol succinate ER (TOPROL XL) 100 mg Take 1 tablet by mouth once daily. doxazosin (CARDURA) 8 mg tablet Take 1 tablet by mouth daily at bedtime. insulin glargine (LANTUS) 100 unit/mL injection Inject 12 Units subcutaneously two times a day with meals. metFORMIN ER (GLUCOPHAGE XR) 500 mg 24 hr tablet Take 1 tablet by mouth two times a day with meals. acetaminophen (TYLENOL) 325 mg tablet Take 650 mg by mouth every 6 hours as needed. TRUE METRIX GLUCOSE TEST STRIP test strip use for glucose checks TRUE METRIX GLUCOSE METER as directed. insulin lispro 100 unit/mL injection Inject 0-12 Units subcutaneously. polyethylene glycol 3350 17 gram packet Take 17 g by mouth at bedtime as needed. amLODIPine (NORVASC) 5 mg tablet Take 1 tablet by mouth once daily. hydrocortisone (ANUSOL-HC) 25 mg suppository 1 suppository by RECTAL route once daily as needed. No current facility-administere d medications for this visit. Objective BP 124/68 (BP Site: Left Arm, BP Position: Sitting, BP Cuff Size: Large Adult) Pulse 68 Wt (!) 150.2 kg (331 lb 2.1 oz) SpO2 94% BMI 44.85 kg/m? Physical Exam Constitutional: General: He is not in acute distress. Appearance: He is not ill-appearing. Comments: On Portable O2 concentrator. Cardiovascular: Rate and Rhythm: Normal rate and regular rhythm. Heart sounds: S1 normal and S2 normal. Murmur (ULSB) heard. Systolic murmur is present with a grade of 1/6. Pulmonary: Effort: No respiratory distress. Breath sounds: No wheezing or rales. Musculoskeletal: Right lower le+ Pitting Edema present. Left lower le+ Pitting Edema present. Neurological: General: No focal deficit present. Mental Status: He is alert. Assessment and Plan 1. S/P aorta repair-Valve sparing aortic root, ascending aorta replacement 30mm Cardioroot graft; Left atrial appendage exclusion 40mm Atriclip; ENRIQUE - ICD9: V45.89, ICD10: Z98.890 (primary diagnosis) 2. New onset type 2 diabetes mellitus (HCC) - ICD9: 250.00, ICD10: E11.9 - Control undetermined, due for labs - Continue current medications 3. Primary hypertension - ICD9: 401.9, ICD10: I10 - Controlled - Contin (more content not included)... Normal [facility] Marlene 10-06-2024 [place] Telephone (LOU) ERICKSON RIGGS ([id number]) 1960 M Date Time Provider Department 10/06/24 AJ QUILES During your visit today, we recorded the following information about you: Cora Gonsalez 10/06/2024 2:08 PM Signed Luis Miguel from [facility] called to give report on the patient, says he is making urine normally but he has bilateral testicular swelling, the testicles aren't painful but they are uncomfortable, Luis Miguel [phone] Aj Quiles PA-C 10/06/2024 4:06 PM Signed Spoke with nurse and daughter. Patient with bilateral testicular discomfort and swelling x 2 days. He is voiding well. Denies any burning with urination. Home care nurse will obtain a urine for culture tomorrow. He will start bactrim after. If symptoms worsen, patient to go to the ER. Patient is scheduled for follow up on 10/18. Instructed to call with any questions or concerns. Creatinine was on 1.13 on 09/20/2024 at an OSH Cora Gonsalez 10/11/2024 12:32 PM Signed [facility] called in says they received his UA back and there were no signs of infection but he has been taking antibiotics since after giving the sample, they say the antibiotics are messing with patients digestive tract and they are asking if he can discontinue taking them? Please call patients daughter at [phone] Merle Rueda RN 10/11/2024 3:15 PM Signed He had bilateral testicular swelling. I have being trying to get a hold of her. I left a message. Please keep trying. If he is doing better on the bactrim, he should finish if able. Thanks Shaka I called patient's daughter, Herminio, and spoke with her and informed her of message above from Aj Quiles PA-C. She verbalizes understanding and will pass along to continue taking the Bactrim if he is able to. Merle Rueda RN Allergies As of Date: 10/06/2024 Noted Allergy Reaction PENICILLINS 04/11/2011 4 - Hives Comments: Hives or GI upset-patient unsure ASA (ASPIRIN) 07/28/2017 4 - Hives 8 - GI Upset Date Reviewed: 09/15/2024 Reviewed by: Traci Osborne MA - Fully Assessed Reason for Visit: Patient Update [1234] Prescriptions as of 10/11/2024 - famotidine (PEPCID) 20 mg tablet Take 1 tablet by mouth two times a day. Patient should start on November 03, 2024. - sulfamethoxazole-tri methoprim (BACTRIM DS) 800-160 mg per tablet Take 1 tablet by mouth two times a day. - amiodarone (PACERONE) 100 mg tablet Take 1 tablet by mouth two times a day. - metoprolol succinate ER (TOPROL XL) 100 mg Take 1 tablet by mouth once daily. - doxazosin (CARDURA) 8 mg tablet Take 1 tablet by mouth daily at bedtime. - insulin glargine (LANTUS) 100 unit/mL injection Inject 12 Units subcutaneously two times a day with meals. - metFORMIN ER (GLUCOPHAGE XR) 500 mg 24 hr tablet Take 1 tablet by mouth two times a day with meals. - acetaminophen (TYLENOL) 325 mg tablet Take 650 mg by mouth every 6 hours as needed. - TRUE METRIX GLUCOSE TEST STRIP test strip use for glucose checks - TRUE METRIX GLUCOSE METER as directed. - insulin lispro 100 unit/mL injection Inject 0-12 Units subcutaneously. - polyethylene glycol 3350 17 gram packet Take 17 g by mouth at bedtime as needed. - amLODIPine (NORVASC) 5 mg tablet Take 1 tablet by mouth once daily. - hydrocortisone (ANUSOL-HC) 25 mg suppository 1 suppository by RECTAL route once daily as needed. Problem List As Of Date 10/06/2024 Noted Resolved Solitary kidney, acquired [Z90.5] 04/11/2011 Kidney stones [N20.0] 04/11/2011 12/29/2019 Abnormal PSA [R97.20] 04/11/2011 09/01/2018 Hypercalciuria [R82.994] 04/22/2011 12/29/2019 Cholelithiasis [K80.20] 07/17/2014 10/27/2017 Abdominal pain [R10.9] 07/17/2014 10/27/2017 Tobacco abuse [Z72.0] 07/25/2014 Severe sleep apnea [G47.30] 07/25/2014 07/25/2014 SONIA (obstructive sleep apnea) intolerant to CPA*07/25/2014 BPH with obstruction/lower urinary tract sympto*10/27/2017 Paroxysmal atrial fibrillation (HCC) [I48.0] 10/27/2017 Gout [M10.9] Hypertension [I10] Obesity, Class I, BMI 30-34.9 [E66.811] 04/25/2019 10/09/2021 Upper back pain [M54.9] 05/09/2019 10/09/2021 DDD (degenerative disc disease), lumbar [M51.36*05/09/2019 Neck pain [M54.2] 05/09/2019 10/09/2021 Chronic pain syndrome [G89.4] 05/09/2019 Chronic bronchitis, obstructive (HCC) [J44.89] 07/08/2020 Ascending aorta dilation [I77.810] 01/06/2019 07/27/2024 Obesity, Class II, BMI 35-39.9 [E66.812] 01/02/2021 10/09/2021 Obesity, Class III, BMI >= 40 [E66.813] 10/09/2021 Nodule of left lung [R91.1] 06/04/2022 Cardiomyopathy (HCC) [I42.9] 06/04/2022 Ascending aortic aneurysm [I71.21] 07/27/2024 New onset type 2 diabetes mellitus (HCC) [E11.9]07/27/2024 Respiratory failure with hypoxia (HCC) [J96.91] 09/08/2024 S/P aorta repair-Valve sparing aortic root, asc*08/03/2024 Encounter Nu (more content not included)... [facility] ([id number]) 1960 M Date Time Provider Department 10/03/24 MUNDO PLASENCIA INTWS During your visit today, we recorded the following information about you: Fabienne Garcia LPN 10/03/2024 11:21 AM Signed Luana from [facility] calling patient has been discharged from PT he has met all of the goals. Allergies As of Date: 10/03/2024 Noted Allergy Reaction PENICILLINS 04/11/2011 4 - Hives Comments: Hives or GI upset-patient unsure ASA (ASPIRIN) 07/28/2017 4 - Hives 8 - GI Upset Date Reviewed: 09/15/2024 Reviewed by: Traci Osborne MA - Fully Assessed Reason for Visit: discharged from PT [Other] Prescriptions as of 10/03/2024 - acetaminophen (TYLENOL) 325 mg tablet Take 650 mg by mouth every 6 hours as needed. - amiodarone (PACERONE) 100 mg tablet Take 100 mg by mouth. - apixaban (ELIQUIS) 5 mg tab(s) Take 5 mg by mouth. - TRUE METRIX GLUCOSE TEST STRIP test strip use for glucose checks - TRUE METRIX GLUCOSE METER as directed. - insulin glargine (LANTUS) 100 unit/mL injection Inject 12 Units subcutaneously two times a day with meals. - insulin lispro 100 unit/mL injection Inject 0-12 Units subcutaneously. - ipratropium-albutero l (DUONEB) 0.5 mg-3 mg(2.5 mg base)/3 mL nebu Inhale 3 mL as instructed every 6 hours as needed. - metFORMIN ER (GLUCOPHAGE XR) 500 mg 24 hr tablet Take 500 mg by mouth two times a day with meals. - senna (SENOKOT) 8.6 mg tab Take 17.2 mg by mouth once daily. - torsemide (DEMADEX) 20 mg tablet Take 20 mg by mouth once daily. - polyethylene glycol 3350 17 gram packet Take 17 g by mouth at bedtime as needed. - famotidine (PEPCID) 20 mg tablet Take 20 mg by mouth two times a day. - amLODIPine (NORVASC) 5 mg tablet Take 1 tablet by mouth once daily. - doxazosin (CARDURA) 8 mg tablet Take 1 tablet by mouth daily at bedtime. - hydrocortisone (ANUSOL-HC) 25 mg suppository 1 suppository by RECTAL route once daily as needed. - metoprolol succinate ER (TOPROL XL) 100 mg Take 1 tablet by mouth once daily. 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/27/2017 Paroxysmal atrial fibrillation (HCC) [I48.0] 10/27/2017 Gout [M10.9] Hypertension [I10] Obesity, Class I, BMI 30-34.9 [E66.811] 04/25/2019 10/09/2021 Upper back pain [M54.9] 05/09/2019 10/09/2021 DDD (degenerative disc disease), lumbar [M51.36*05/09/2019 Neck pain [M54.2] 05/09/2019 10/09/2021 Chronic pain syndrome [G89.4] 05/09/2019 Chronic bronchitis, obstructive (HCC) [J44.89] 07/08/2020 Ascending aorta dilation [I77.810] 01/06/2019 07/27/2024 Obesity, Class II, BMI 35-39.9 [E66.812] 01/02/2021 10/09/2021 Obesity, Class III, BMI >= 40 [E66.813] 10/09/2021 Nodule of left lung [R91.1] 06/04/2022 Cardiomyopathy (HCC) [I42.9] 06/04/2022 Ascending aortic aneurysm [I71.21] 07/27/2024 New onset type 2 diabetes mellitus (HCC) [E11.9]07/27/2024 Respiratory failure with hypoxia (HCC) [J96.91] 09/08/2024 S/P aorta repair-Valve sparing aortic root, asc*08/03/2024 Encounter Status:Closed by CHAPIS DICKENS on 10/03/24 Normal [facility] Absolute lymphocyte countOrd ered By: Nathan Mack on 09-29-2024 Lymphocytes Auto (Unsp spec) [#/Vol] 1.39 10*3/uL 0.83-4.51 [facility] Absolute neutrophil countOrd ered By: Nathanjason Mack on 09-29-2024 Neutrophils (Bld) [#/Vol] 6.3 10*3/uL 2.0-7.7 [facility] Automated lymphocyte count a s percentage of total leukocytesOrdered By: Nathan Bebamaye on 09-29-2024 Lymphocytes/100 WBC Auto (Unsp spec) 15.9 % Low 19-41 [facility] Basophil percentageOrdered B y: Nathan Bebamaye on 09-29-2024 Basophils/100 WBC (Bld) 0.3 % 0-1 [facility] CBC W/Diff, Automatedon Absolute Lymph 1.39 X10 3/uL Normal 0.83-4.51 [facility] Comment on above: Performed By: #### L 100.0100 #### [facility] [address] [place], [address] Absolute Neut 6.3 X10 3/uL Normal 2.0-7.7 [facility] Comment on above: Performed By: #### L 100.0100 #### [facility] [address] [place], [address] Basophils/100 WBC (Bld) 0.3 % Normal 0-1 [facility] Comment on above: Performed By: #### L 100.0100 #### [facility] [address] [place], [address] Eosinophils/100 WBC (Bld) 3.4 % Normal 0-5 [facility] Comment on above: Performed By: #### L 100.0100 #### [facility] [address] [place], [address] Erythrocyte distribution width (RBC) [Ratio] 13.5 % Normal 11.6-14.6 [facility] Comment on above: Performed By: #### L 100.0100 #### [facility] [address] [place], [address] Hematocrit (Bld) [Volume fraction] 30.5 % Low 40-54 [facility] Comment on above: Performed By: #### L 100.0100 #### [facility] [address] [place], [address] Hemoglobin (Bld) [Mass/Vol] 9.5 g/dL Low 13.0-16.5 [facility] Comment on above: Performed By: #### L 100.0100 #### [facility] [address] [place], [address] IG% 0.900 Normal 0.0-0.9 [facility] Comment on above: Result Comment: IG% - Immature Granulocytes (promyelocytes, myelocytes and metamyelocytes) > 1% indicates that a LEFT SHIFT is Present. Performed By: #### L 100.0100 #### [facility] [address] [place], [address] Lymphocytes/100 WBC (Bld) 15.9 % Low 19-41 [facility] Comment on above: Performed By: #### L 100.0100 #### [facility] [address] [place], [address] MCH (RBC) [Entitic mass] 28.1 pg Normal 27.0-32.0 [facility] Comment on above: Performed By: #### L 100.0100 #### [facility] [address] [place], [address] MCHC (RBC) [Mass/Vol] 31.1 g/dL Low 32-36 [facility] Comment on above: Performed By: #### L 100.0100 #### [facility] [address] [place], [address] MCV (RBC) [Entitic vol] 90.2 fL Normal 80-94 [facility] Comment on above: Performed By: #### L 100.0100 #### [facility] [address] [place], [address] Monocytes/100 WBC (Bld) 8.1 % Normal 0-10 [facility] Comment on above: Performed By: #### L 100.0100 #### [facility] [address] [place], [address] Neutrophils/100 WBC (Bld) 71.4 % High 47-70 [facility] Comment on above: Performed By: #### L 100.0100 #### [facility] [address] [place], [address] Nucleated RBC (Bld) [#/Vol] 0 10*3/uL Normal 0-5 [facility] Comment on above: Performed By: #### L 100.0100 #### [facility] [address] [place], [address] Platelet mean volume (Bld) [Entitic vol] 10.5 fL Normal 6.2-12.0 [facility] Comment on above: Performed By: #### L 100.0100 #### [facility] [address] [place], [address] Platelets (Bld) [#/Vol] 209 10*3/uL Normal 150-450 [facility] Comment on above: Performed By: #### L 100.0100 #### [facility] [address] [place], [address] RBC (Bld) [#/Vol] 3.38 10*6/uL Low 4.6-6.2 [facility] Comment on above: Performed By: #### L 100.0100 #### [facility] [address] [place], [address] RDW SD 44.1 fl High 35.1-43.9 [facility] Comment on above: Performed By: #### L 100.0100 #### [facility] [address] [place], [address] WBC (Bld) [#/Vol] 8.8 10*3/uL Normal 4.4-11.0 [facility] Comment on above: Performed By: #### L 100.0100 #### [facility] [address] [place], [address] Eosinophil percentageOrdered By: Nathan Mack on 09-29-2024 Eosinophils/100 WBC (Bld) 3.4 % 0-5 [facility] Erythrocyte distribution wid th ratioOrdered By: Nathan Mack on 09-29-2024 Erythrocyte distribution width (RBC) [Ratio] 13.5 % 11.6-14.6 [facility] Erythrocyte distribution wid th standard deviationOrdered By: Nathanjason Mack on 09-29-2024 Erythrocyte distribution width (RBC) [Ratio] 44.1 fl High 35.1-43.9 [facility] Hematocrit Auto (Bld) [Volum e fraction]Ordered By: Nathan Mack on 09-29-2024 Hematocrit (Bld) [Volume fraction] 30.5 % Low 40-54 [facility] Hemoglobin measurementOrdere d By: Nathan Mack on 09-29-2024 Hemoglobin (Bld) [Mass/Vol] 9.5 g/dL Low 13.0-16.5 [facility] Immature granulocytes/100 WB C Auto (Bld)Ordered By: Nathan Mack on 09-29-2024 Immature granulocytes/100 WBC (Bld) 0.900 % 0.0-0.9 [facility] Comment on above: IG% - Immature Granu locytes (promyelocytes, myelocytes and metamyelocytes) > 1% indicates that a LEFT SHIFT is Present. MCV (mean corpuscular volume ) determinationOrdered By: Nathan Mack on 09-29-2024 MCV (RBC) [Entitic vol] 90.2 fL 80-94 [facility] Mean corpuscular hemoglobin (MCH) determinationOrdered By: Nathan Mack on 09-29-2024 MCH (RBC) [Entitic mass] 28.1 pg 27.0-32.0 [facility] Mean corpuscular hemoglobin concentration (MCHC) determinationOrdered By: Nathan Mack on 09-29-2024 MCHC (RBC) [Mass/Vol] 31.1 g/dL Low 32-36 [facility] Mean platelet volume determi nationOrdered By: Nathan Mack on 09-29-2024 Platelet mean volume (Bld) [Entitic vol] 10.5 fL 6.2-12.0 [facility] Monocyte percentageOrdered B y: Nathan Mack on 09-29-2024 Monocytes/100 WBC (Bld) 8.1 % 0-10 [facility] Neutrophil percentageOrdered By: Nathan Mack on 09-29-2024 Neutrophils/100 WBC (Bld) 71.4 % High 47-70 [facility] Nucleated red blood cell per centageOrdered By: Nathan Mack on 09-29-2024 Nucleated RBC/100 WBC (Bld) [Ratio] 0 % 0-5 [facility] Platelet countOrdered By: Trisha Mack on 09-29-2024 Platelets (Bld) [#/Vol] 209 10*3/uL 150-450 [facility] RBC Auto (Bld) [#/Vol]Ordere d By: Nathan Mack on 09-29-2024 RBC (Bld) [#/Vol] 3.38 10*6/uL Low 4.6-6.2 [facility] White blood cell (WBC) count Ordered By: Nathan Mack on 09-29-2024 WBC (Bld) [#/Vol] 8.8 10*3/uL 4.4-11.0 [facility] CNPNon [facility] ERICK[facility]IG[facility] ([id number]) 1960 M Date Time Provider Department 09/28/24 MUNDO PLASENCIA INTMWS During your visit today, we recorded the following information about you: Feliberto Carballo RN 09/28/2024 11:02 AM Signed Madelin RETANA with [facility] called I and reports Pt told her he is trying to wean off his 2L of supplemental O2. She states if they are going to wean off the O2 then she will need order from the provider with parameters for weaning off faxed to them. Please fax orders to fax # [phone]. XAVIER Barfield Victor H, MD 09/28/2024 2:48 PM Signed 1) No oxygen weaning recommended until he is seen by pulmonary 10/24/24. 2) On review of his records, he can probably wean off aripiprazole (Abilify) 10 mg daily. Wean off taking 10 mg every other day for 5 doses/days. Then discontinue. It seemed he was started on this for agitation during his acute illness. Chica Bañuelos LPN 09/28/2024 3:19 PM Signed Below recommendation left on Madelin/LAINEY vm, spoke to Ray AND daughter given below recommendations, verbalized understanding. Chica Bañuelos LPN Allergies As of Date: 09/28/2024 Noted Allergy Reaction PENICILLINS 04/11/2011 4 - Hives Comments: Hives or GI upset-patient unsure ASA (ASPIRIN) 07/28/2017 4 - Hives 8 - GI Upset Date Reviewed: 09/15/2024 Reviewed by: Traci Osborne MA - Fully Assessed Reason for Visit: Orders for Weaning off Home )2 [Other] Prescriptions as of 09/28/2024 - acetaminophen (TYLENOL) 325 mg tablet Take 650 mg by mouth every 6 hours as needed. - amiodarone (PACERONE) 100 mg tablet Take 100 mg by mouth. - apixaban (ELIQUIS) 5 mg tab(s) Take 5 mg by mouth. - TRUE METRIX GLUCOSE TEST STRIP test strip use for glucose checks - TRUE METRIX GLUCOSE METER as directed. - insulin glargine (LANTUS) 100 unit/mL injection Inject 12 Units subcutaneously two times a day with meals. - insulin lispro 100 unit/mL injection Inject 0-12 Units subcutaneously. - ipratropium-albutero l (DUONEB) 0.5 mg-3 mg(2.5 mg base)/3 mL nebu Inhale 3 mL as instructed every 6 hours as needed. - metFORMIN ER (GLUCOPHAGE XR) 500 mg 24 hr tablet Take 500 mg by mouth two times a day with meals. - senna (SENOKOT) 8.6 mg tab Take 17.2 mg by mouth once daily. - torsemide (DEMADEX) 20 mg tablet Take 20 mg by mouth once daily. - polyethylene glycol 3350 17 gram packet Take 17 g by mouth at bedtime as needed. - famotidine (PEPCID) 20 mg tablet Take 20 mg by mouth two times a day. - amLODIPine (NORVASC) 5 mg tablet Take 1 tablet by mouth once daily. - doxazosin (CARDURA) 8 mg tablet Take 1 tablet by mouth daily at bedtime. - hydrocortisone (ANUSOL-HC) 25 mg suppository 1 suppository by RECTAL route once daily as needed. - metoprolol succinate ER (TOPROL XL) 100 mg Take 1 tablet by mouth once daily. Problem List As Of Date 09/28/2024 Noted Resolved Solitary kidney, acquired [Z90.5] 04/11/2011 Kidney stones [N20.0] 04/11/2011 12/29/2019 Abnormal PSA [R97.20] 04/11/2011 09/01/2018 Hypercalciuria [R82.994] 04/22/2011 12/29/2019 Cholelithiasis [K80.20] 07/17/2014 10/27/2017 Abdominal pain [R10.9] 07/17/2014 10/27/2017 Tobacco abuse [Z72.0] 07/25/2014 Severe sleep apnea [G47.30] 07/25/2014 07/25/2014 SONIA (obstructive sleep apnea) intolerant to CPA*07/25/2014 BPH with obstruction/lower urinary tract sympto*10/27/2017 Paroxysmal atrial fibrillation (HCC) [I48.0] 10/27/2017 Gout [M10.9] Hypertension [I10] Obesity, Class I, BMI 30-34.9 [E66.811] 04/25/2019 10/09/2021 Upper back pain [M54.9] 05/09/2019 10/09/2021 DDD (degenerative disc disease), lumbar [M51.36*05/09/2019 Neck pain [M54.2] 05/09/2019 10/09/2021 Chronic pain syndrome [G89.4] 05/09/2019 Chronic bronchitis, obstructive (HCC) [J44.89] 07/08/2020 Ascending aorta dilation [I77.810] 01/06/2019 07/27/2024 Obesity, Class II, BMI 35-39.9 [E66.812] 01/02/2021 10/09/2021 Obesity, Class III, BMI >= 40 [E66.813] 10/09/2021 Nodule of left lung [R91.1] 06/04/2022 Cardiomyopathy (HCC) [I42.9] 06/04/2022 Ascending aortic aneurysm [I71.21] 07/27/2024 New onset type 2 diabetes mellitus (HCC) [E11.9]07/27/2024 Respiratory failure with hypoxia (HCC) [J96.91] 09/08/2024 S/P aorta repair-Valve sparing aortic root, asc*08/03/2024 Medications Discontinued During This Encounter Prescriptions - ARIPiprazole (ABILIFY) 10 mg tablet (Discontinued) 10 mg by PEG Tube route once daily. Encounter Status:Closed by CHICA BAÑUELOS on 09/28/24 Normal [facility] Absolute lymphocyte countOrd ered By: Nathan Mack on 09-20-2024 Lymphocytes Auto (Unsp spec) [#/Vol] 1.14 10*3/uL 0.83-4.51 [facility] Absolute neutrophil countOrd ered By: Nathan Mack on 09-20-2024 Neutrophils (Bld) [#/Vol] 6.0 10*3/uL 2.0-7.7 [facility] Anion gap in Serum or Plasma Ordered By: Nathan Mack on 09-20-2024 Anion gap [Moles/Vol] 10 mmol/L 5-15 [facility] Automated lymphocyte count a s percentage of total leukocytesOrdered By: Nathan Mack on 09-20-2024 Lymphocytes/100 WBC Auto (Unsp spec) 14.1 % Low 19-41 [facility] BUN/creatinine ratioOrdered By: Nathan Mack on 09-20-2024 Urea nitrogen/Creatinine [Mass ratio] 15.7 mg/mg 10-20 [facility] Basophil percentageOrdered B y: Nathan Yoderiter on 09-20-2024 Basophils/100 WBC (Bld) 0.1 % 0-1 [facility] Bilirubin, totalOrdered By: Nathan Mack on 09-20-2024 Bilirubin [Mass/Vol] 0.20 mg/dL 0.00-1.30 [facility] CBC W/Diff, Automatedon 08-29 Absolute Lymph 1.14 X10 3/uL Normal 0.83-4.51 [facility] Comment on above: Performed By: #### L 100.0100, L503.7505, L500.4050, L501.9520 #### [facility] [address] [place], [address] Absolute Neut 6.0 X10 3/uL Normal 2.0-7.7 [facility] Comment on above: Performed By: #### L 100.0100, L503.7505, L500.4050, L501.9520 #### [facility] [address] [place], [address] Basophils/100 WBC (Bld) 0.1 % Normal 0-1 [facility] Comment on above: Performed By: #### L 100.0100, L503.7505, L500.4050, L501.9520 #### [facility] [address] [place], [address] Eosinophils/100 WBC (Bld) 3.5 % Normal 0-5 [facility] Comment on above: Performed By: #### L 100.0100, L503.7505, L500.4050, L501.9520 #### [facility] [address] [place], [address] Erythrocyte distribution width (RBC) [Ratio] 13.2 % Normal 11.6-14.6 [facility] Comment on above: Performed By: #### L 100.0100, L503.7505, L500.4050, L501.9520 #### [facility] [address] [place], [address] Hematocrit (Bld) [Volume fraction] 29.2 % Low 40-54 [facility] Comment on above: Performed By: #### L 100.0100, L503.7505, L500.4050, L501.9520 #### [facility] [address] [place], [address] Hemoglobin (Bld) [Mass/Vol] 9.1 g/dL Low 13.0-16.5 [facility] Comment on above: Performed By: #### L 100.0100, L503.7505, L500.4050, L501.9520 #### [facility] [address] [place], [address] IG% 1.100 High 0.0-0.9 [facility] Comment on above: Result Comment: IG% - Immature Granulocytes (promyelocytes, myelocytes and metamyelocytes) > 1% indicates that a LEFT SHIFT is Present. Performed By: #### L 100.0100, L503.7505, L500.4050, L501.9520 #### [facility] [address] [place], [address] Lymphocytes/100 WBC (Bld) 14.1 % Low 19-41 [facility] Comment on above: Performed By: #### L 100.0100, L503.7505, L500.4050, L501.9520 #### [facility] [address] [place], [address] MCH (RBC) [Entitic mass] 28.6 pg Normal 27.0-32.0 [facility] Comment on above: Performed By: #### L 100.0100, L503.7505, L500.4050, L501.9520 #### [facility] [address] [place], [address] MCHC (RBC) [Mass/Vol] 31.2 g/dL Low 32-36 [facility] Comment on above: Performed By: #### L 100.0100, L503.7505, L500.4050, L501.9520 #### [facility] [address] [place], [address] MCV (RBC) [Entitic vol] 91.8 fL Normal 80-94 [facility] Comment on above: Performed By: #### L 100.0100, L503.7505, L500.4050, L501.9520 #### [facility] [address] [place], [address] Monocytes/100 WBC (Bld) 7.6 % Normal 0-10 [facility] Comment on above: Performed By: #### L 100.0100, L503.7505, L500.4050, L501.9520 #### [facility] [address] [place], [address] Neutrophils/100 WBC (Bld) 73.6 % High 47-70 [facility] Comment on above: Performed By: #### L 100.0100, L503.7505, L500.4050, L501.9520 #### [facility] [address] [place], [address] Nucleated RBC (Bld) [#/Vol] 0 10*3/uL Normal 0-5 [facility] Comment on above: Performed By: #### L 100.0100, L503.7505, L500.4050, L501.9520 #### [facility] [address] [place], [address] Platelet mean volume (Bld) [Entitic vol] 10.5 fL Normal 6.2-12.0 [facility] Comment on above: Performed By: #### L 100.0100, L503.7505, L500.4050, L501.9520 #### [facility] [address] [place], [address] Platelets (Bld) [#/Vol] 244 10*3/uL Normal 150-450 [facility] Comment on above: Performed By: #### L 100.0100, L503.7505, L500.4050, L501.9520 #### [facility] [address] [place], [address] RBC (Bld) [#/Vol] 3.18 10*6/uL Low 4.6-6.2 [facility] Comment on above: Performed By: #### L 100.0100, L503.7505, L500.4050, L501.9520 #### [facility] [address] [place], [address] RDW SD 45.0 fl High 35.1-43.9 [facility] Comment on above: Performed By: #### L 100.0100, L503.7505, L500.4050, L501.9520 #### [facility] [address] [place], [address] WBC (Bld) [#/Vol] 8.1 10*3/uL Normal 4.4-11.0 [facility] Comment on above: Performed By: #### L 100.0100, L503.7505, L500.4050, L501.9520 #### [facility] [address] [place], [address] Carbon dioxide, total [Moles /volume] in Central venous bloodOrdered By: Nathan Mack on 09-20-2024 CO2 [Moles/Vol] 32.8 mmol/L High 21.0-32.0 [facility] Cardiology Visit Reporton Cardiology Visit Report [facility] [address] [place], [place] [address] OFFICE VISIT Date of Service: 09/20/24 MR#: [id number] Acct: [id number] Name: ERICKSON RIGGS Rep #: [id number] : 1960 Provider: RUBEN Yu Age/Sex: 64/M Location: [facility] [place] Status: Signed HPI HPI History of Present Illness Details: Erickson Riggs is a 64-year-old male who presents to office today for hospital follow-up. Patient was admitted to [facility] 08/03/2024 for planned valve sparing aortic root and ascending aorta replacement graft, left atrial appendage exclusion along with intraoperative transesophageal echocardiogram. This was performed by Dr. Solano. Patient was admitted to ICU following the procedure. He was extubated postoperatively as expected but did require HFNC and NIV for multiple days and eventually weaned to 6 L nasal cannula. His course was complicated by intermittent confusion and ICU delirium. He did experience intermittent atrial fibrillation and sinus tachycardia and was initiated on amiodarone along with up titration of his beta-selene and initiated on anticoagulation. Course was also complicated with volume overload and he was treated with Bumex gtt. and eventually transition to IV pushes. He was also treated for a UTI. He did have 1 episode of blood in his stool requiring GI consultation; however, patient declined further workup as this is something he periodically experiences in the past. Patient was discharged to LT[facility], select for ongoing O2 weaning and therapy. He returned home on 09/05/2024. Patient has a history of hypertension, obstructive sleep apnea and solitary kidney. Patient presented to the emergency room 05/29/2022 with chest discomfort described as arthritis in his breastbone. His troponin was normal, CXR did not demonstrate any acute process, CTA was negative for PE and negative for dissection. Patient was non-compliant with the CPAP. Upon presentation today, patient reports he feels fatigued today. He felt to be recovering well and gaining strength and energy back but feels more fatigued today. Home PT and activity is helping his weakness improve. He reports his LE edema is at his baseline. He feels his SOB is similar as to when he left the hospital/[facility] and is same as prior to hospitalization, at his baseline. He received a new NIV machine/mask from the hospital and has been compliant. He has SOB at rest. Unable to assess for orthopnea as patient sleeping in a chair/sitting up secondary to chronic back pain. Further ROS below. Intake Vital Signs 12/16/23 08:37 09/20/24 07:21 Height 6 ft 6 ft Weight: 332 lb BMI 45.0 BP 122/65 H Blood Pressure Location Rt brachial Position Sitting Respiration 20 H Pulse 73 Pulse Source Monitor Pulse Oximetry (%) 94 Oxygen Delivery Method nasal canula Oxygen Flow Rate (L/min) 2 Intake Visit Reasons: S/P [facility] 08/03 [employer] Required: No Is patient in pain?: No Allergies aspirin Allergy (Verified 09/20/24 10:08) GI upset, hives Penicillins Allergy (Verified 09/20/24 10:08) GI upset, hives Medications ???Medication ???Instructions ???Recorded ???Confirmed ???Type amiodarone 100 mg tablet 100 mg PO BID 09/20/24 09/20/24 Hi story amlodipine 10 mg tablet 5 mg PO DAILY 09/20/24 History apixaban 5 mg tablet (Eliquis) 5 mg PO BID 09/20/24 09/20/24 Hist ory aripiprazole 10 mg tablet (Abilify) 10 mg PO QDAY 09/20/24 09/20/24 History doxazosin 4 mg tablet 8 mg PO DAILY 09/20/24 09/20/24 Hi story famotidine 20 mg tablet 20 mg PO QDAY 09/20/24 09/20/24 Hi story insulin glargine 100 unit/mL 12 unit subcut QAM 09/20/24 History subcutaneous solution (Lantus U-100 Insulin) insulin regular human 100 unit/mL 15 unit subcut TID 09/20/2409/20 History injection solution (Humulin R Regular U-100 Insulin) metformin 500 mg tablet 500 mg PO BID 09/20/24 09/20/24 Hi story metoprolol succinate 100 mg 100 mg PO QDAY 09/20/24 09/20/24 H istory tablet,extended release 24 hr polyethylene glycol 3350 17 4 g PO ONCE 09/20/24 09/20/24 Hist ory gram/dose oral powder (Miralax) sennosides 8.6 mg tablet (Natural 8.6 mg PO QDAY 09/20/24 09/20/24 History Senna Laxative) torsemide 20 mg tablet 20 mg PO QAM 09/20/24 09/20/24 His tory Ejection fraction %: 67 Have you fallen in the past year?: No [facility] Medical History Frequent headaches Ascending aortic aneurysm Essential (primary) hypertension Dyspnea on exertion Shortness of breath History of fractured rib H/O unilateral nephrectomy Obesity (BMI 30.0-34.9) Chronic back pain Obstructive sleep apnea CVA (cerebral vascular accident) Paroxysmal supraventricular tachycardia Paroxysmal atrial fibrill (more content not included)... Normal [facility] Chloride assayOrdered By: Trisha Mack on 09-20-2024 Chloride [Moles/Vol] 101 mmol/L 98-108 [facility] Comprehensive Metabolic Prof ilon 09-20-2024 Albumin [Mass/Vol] 3.8 g/dL Normal 3.4-4.8 [facility] Comment on above: Performed By: #### L 100.0100, L503.7505, L500.4050, L501.9520 #### [facility] [address] [place], [address] Albumin/Globulin [Mass ratio] 1.3 {ratio} Normal 0.9-2.4 [facility] Comment on above: Performed By: #### L 100.0100, L503.7505, L500.4050, L501.9520 #### [facility] [address] [place], [address] ALK PHOS 101 U/L Normal 40-129 [facility] Comment on above: Performed By: #### L 100.0100, L503.7505, L500.4050, L501.9520 #### [facility] [address] [place], [address] ALT [Catalytic activity/Vol] 29 U/L Normal <=46 [facility] Comment on above: Performed By: #### L 100.0100, L503.7505, L500.4050, L501.9520 #### [facility] [address] [place], [address] AST [Catalytic activity/Vol] 17 U/L Normal <=37 [facility] Comment on above: Performed By: #### L 100.0100, L503.7505, L500.4050, L501.9520 #### [facility] [address] [place], [address] Bilirubin [Mass/Vol] 0.20 mg/dL Normal 0.00-1.30 [facility] Comment on above: Performed By: #### L 100.0100, L503.7505, L500.4050, L501.9520 #### [facility] [address] [place], [address] BUN/CRE 15.7 RATIO Normal 10-20 [facility] Comment on above: Performed By: #### L 100.0100, L503.7505, L500.4050, L501.9520 #### [facility] [address] [place], [address] Calcium [Mass/Vol] 9.6 mg/dL Normal 7.6-11.0 [facility] Comment on above: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 Telephone (INTO[facility] HealthWS) ERICKSON RIGGS ([id number]) 1960 M Date Time Provider Department 09/06/24 MUNDO PLASENCIA INTHectorWS During your visit today, we recorded the following information about you: Fabienne Garcia LPN 09/06/2024 4:33 PM Everett Crwes from [facility] calling did PT eval today, and has PT plan of care, one visit this week, then 2 visits weekly for 3 weeks, then 1 visit weekly for 1 week. Requesting verbal order please. Please advise Mundo Plasencia MD 09/07/2024 10:13 AM Signed Rekha PT POC. Chica Bañuelos LPN 09/07/2024 10:46 AM Signed Eleonora/[facility], notified. Chica Bañuelos LPN Allergies As of Date: 09/06/2024 Noted Allergy Reaction PENICILLINS 04/11/2011 4 - Hives Comments: Hives or GI upset-patient unsure ASA (ASPIRIN) 07/28/2017 4 - Hives 8 - GI Upset Date Reviewed: 05/04/2024 Reviewed by: Chapis Dickens, COMMERCIAL PEST CONTROL REPRESENTATIVE.PLUMBING MANAGER - Fully Assessed Reason for Visit: PT plan of care, request verbal order [Other] Prescriptions as of 09/07/2024 - doxazosin (CARDURA) 2 mg tablet Take 1 tablet by mouth daily at bedtime. - CALCIUM-VITAMIN D3-MAGNESIUM ORAL Take by mouth. - amLODIPine (NORVASC) 10 mg tablet Take 1 tablet by mouth once daily. - metoprolol tartrate, short acting, (LOPRESSOR) 25 mg tablet Take 25 mg by mouth twice daily. - TURMERIC ORAL Take 1,500 mg by mouth twice daily. - CINNAMON Take 1,000 mL by mouth once daily. - ascorbic acid/collagen hydr (COLLAGEN PLUS VITAMIN C ORAL) Take 1,000 mg by mouth once daily. - PAPAYA ENZYME ORAL Take 1 capsule by mouth once daily. Problem List As Of Date 09/06/2024 Noted Resolved Solitary kidney, acquired [Z90.5] 04/11/2011 Kidney stones [N20.0] 04/11/2011 12/29/2019 Abnormal PSA [R97.20] 04/11/2011 09/01/2018 Hypercalciuria [R82.994] 04/22/2011 12/29/2019 Cholelithiasis [K80.20] 07/17/2014 10/27/2017 Abdominal pain [R10.9] 07/17/2014 10/27/2017 Tobacco abuse [Z72.0] 07/25/2014 Severe sleep apnea [G47.30] 07/25/2014 07/25/2014 SONIA (obstructive sleep apnea) intolerant to CPA*07/25/2014 BPH with obstruction/lower urinary tract sympto*10/27/2017 Paroxysmal atrial fibrillation (HCC) [I48.0] 10/27/2017 Gout [M10.9] Hypertension [I10] Obesity, Class I, BMI 30-34.9 [E66.811] 04/25/2019 10/09/2021 Upper back pain [M54.9] 05/09/2019 10/09/2021 DDD (degenerative disc disease), lumbar [M51.36*05/09/2019 Neck pain [M54.2] 05/09/2019 10/09/2021 Chronic pain syndrome [G89.4] 05/09/2019 Chronic bronchitis, obstructive (HCC) [J44.89] 07/08/2020 Ascending aorta dilation [I77.810] 01/06/2019 07/27/2024 Obesity, Class II, BMI 35-39.9 [E66.812] 01/02/2021 10/09/2021 Obesity, Class III, BMI >= 40 [E66.813] 10/09/2021 Nodule of left lung [R91.1] 06/04/2022 Cardiomyopathy (HCC) [I42.9] 06/04/2022 Ascending aortic aneurysm [I71.21] 07/27/2024 New onset type 2 diabetes mellitus (HCC) [E11.9]07/27/2024 Encounter Status:Closed by CHICA BAÑUELOS on 09/07/24 Normal [facility] Progress Noteon 09-05-2024 Progress Note [facility] Normal [facility] Progress Note Normal [facility] Progress Noteon 09-04-2024 Progress Note [facility] Progress Noteon 09-03-2024 Progress Note [facility] Normal [facility] CNPBanner 09-02-2024 CNPN Telephone (INTWS) ERICKSON RIGGS ([id number]) 1960 M Date Time Provider Department 09/02/24 MUNDO PLASENCIA INTMWS During your visit today, we recorded the following information about you: Rubia Barrera RN 09/02/2024 12:29 PM Signed Ursula with [facility] calls to ask if provider will follow their home care orders for SN, PT, OT. Patient discharging home to [facility] in [place] on Thursday09/05/2024 after rehab for an aortic aneurysm with surgical repair. Please call verbal orders to [phone]. XAVIER Leone Victor H, MD 09/02/2024 1:22 PM Signed Okay I will follow. Morgan Suh MA 09/02/2024 2:19 PM Signed Ursula was notified Morgan Suh MA Allergies As of Date: 09/02/2024 Noted Allergy Reaction PENICILLINS 04/11/2011 4 - Hives Comments: Hives or GI upset-patient unsure ASA (ASPIRIN) 07/28/2017 4 - Hives 8 - GI Upset Date Reviewed: 05/04/2024 Reviewed by: Chapis Dickens, COMMERCIAL PEST CONTROL REPRESENTATIVE.PLUMBING MANAGER - Fully Assessed Reason for Visit: Orders [681] Prescriptions as of 09/02/2024 - doxazosin (CARDURA) 2 mg tablet Take 1 tablet by mouth daily at bedtime. - CALCIUM-VITAMIN D3-MAGNESIUM ORAL Take by mouth. - amLODIPine (NORVASC) 10 mg tablet Take 1 tablet by mouth once daily. - metoprolol tartrate, short acting, (LOPRESSOR) 25 mg tablet Take 25 mg by mouth twice daily. - TURMERIC ORAL Take 1,500 mg by mouth twice daily. - CINNAMON Take 1,000 mL by mouth once daily. - ascorbic acid/collagen hydr (COLLAGEN PLUS VITAMIN C ORAL) Take 1,000 mg by mouth once daily. - PAPAYA ENZYME ORAL Take 1 capsule by mouth once daily. Problem List As Of Date 09/02/2024 Noted Resolved Solitary kidney, acquired [Z90.5] 04/11/2011 Kidney stones [N20.0] 04/11/2011 12/29/2019 Abnormal PSA [R97.20] 04/11/2011 09/01/2018 Hypercalciuria [R82.994] 04/22/2011 12/29/2019 Cholelithiasis [K80.20] 07/17/2014 10/27/2017 Abdominal pain [R10.9] 07/17/2014 10/27/2017 Tobacco abuse [Z72.0] 07/25/2014 Severe sleep apnea [G47.30] 07/25/2014 07/25/2014 SONIA (obstructive sleep apnea) intolerant to CPA*07/25/2014 BPH with obstruction/lower urinary tract sympto*10/27/2017 Paroxysmal atrial fibrillation (HCC) [I48.0] 10/27/2017 Gout [M10.9] Hypertension [I10] Obesity, Class I, BMI 30-34.9 [E66.811] 04/25/2019 10/09/2021 Upper back pain [M54.9] 05/09/2019 10/09/2021 DDD (degenerative disc disease), lumbar [M51.36*05/09/2019 Neck pain [M54.2] 05/09/2019 10/09/2021 Chronic pain syndrome [G89.4] 05/09/2019 Chronic bronchitis, obstructive (HCC) [J44.89] 07/08/2020 Ascending aorta dilation [I77.810] 01/06/2019 07/27/2024 Obesity, Class II, BMI 35-39.9 [E66.812] 01/02/2021 10/09/2021 Obesity, Class III, BMI >= 40 [E66.813] 10/09/2021 Nodule of left lung [R91.1] 06/04/2022 Cardiomyopathy (HCC) [I42.9] 06/04/2022 Ascending aortic aneurysm [I71.21] 07/27/2024 New onset type 2 diabetes mellitus (HCC) [E11.9]07/27/2024 Encounter Status:Closed by MORGAN SUH on 09/02/24 Normal [facility] Progress Noteon 09-02-2024 Progress Note [facility] Progress Noteon 09-01-2024 Progress Note [facility] Normal [facility] Progress Note Normal [facility] Progress Noteon 08-31-2024 Progress Note [facility] Normal [facility] Progress Note Normal [facility] Progress Noteon 08-30-2024 Progress Note [facility] Normal [facility] Progress Noteon 08-29-2024 Progress Note [facility] Normal [facility] CNCOon 08-26-2024 CNCO Letter Text Normal [facility] Progress Noteon 08-26-2024 Progress Note Patient seen by me at [facility]. Documentation including history, exam, and plan documented in [facility] E[facility]. This encounter is for billing only. Normal [facility] Progress Noteon 08-25-2024 Progress Note Patient seen by me at [facility]. Documentation including history, exam, and plan documented in [facility]. This encounter is for billing only. Normal [facility] Progress Noteon 08-24-2024 Progress Note Patient seen by me at [facility]. Documentation including history, exam, and plan documented in [facility]. This encounter is for billing only. Normal [facility] Progress Noteon 08-23-2024 Progress Note Normal [facility] Progress Note Patient seen by me at [facility]. Documentation including history, exam, and plan documented in [facility]. This encounter is for billing only. [facility] [id number] 08-17-2024 [id number] Patient Choice Patient Name: ERICKSON RIGGS Date of : 1960 [facility] 30on 08-16-2024 30 [facility] [id number] 08-16-2024 [id number] [facility] [id number] [facility] [id number] Discharge med list transmitted to [facility] via [facility]port per TCC request. [facility] [id number] [facility] for 1:00 pm. TCC, [employer] Judicial Law Clerk, RN, Facility and pt and pt's daughter, Maddie, have been notified. Normal [facility] BASIC METABOLIC PANELon 05-2 -2024 Anion gap [Moles/Vol] 11 mmol/L Normal 3-13 [facility] Comment on above: Performed By: #### L AB15, [id number] ####Tempering Kiln Tender: TRACI LIZARRAGA ([id number])[facility])[address] [place] [address] Calcium [Mass/Vol] 8.9 mg/dL Normal 8.8-10.0 [facility] Comment on above: Performed By: #### L AB15, [id number] ####Tempering Kiln Tender: TRACI LIZARRAGA ([id number])[facility])[address] [place] [address] Chloride [Moles/Vol] 96 mmol/L Low 98-107 [facility] Comment on above: Performed By: #### L AB15, [id number] ####Tempering Kiln Tender: TRACI LIZARRAGA ([id number])[facility] ([facility])[address] [place] [address] [place] CO2 [Moles/Vol] 30 mmol/L Normal 23-31 [facility] Comment on above: Performed By: #### L AB15, [id number] ####Tempering Kiln Tender: TRACI LIZARRAGA ([id number])[facility])[address] [place] [address] Creatinine [Mass/Vol] 1.38 mg/dL High 0.72-1.25 [facility] Comment on above: Performed By: #### L AB15, [id number] ####Tempering Kiln Tender: TRACI LIZARRAGA ([id number])[facility])[address] [place] [address] [place] GLOMERULAR FILTRATION RATE ML/MIN/1.73 SQ M.PREDICTED 56.7 mL/min/1.73m*2 Low >60.0 [facility] Comment on above: Result Comment: Calc ulation based on the Chronic Kidney Disease Epidemiology Collaboration (CKD-EPI) equation refit without adjustment for race Performed By: #### L AB15, [id number] ####Tempering Kiln Tender: TRACI LIZARRAGA ([id number])[facility] ([facility])[address] [place] [address] Glucose [Mass/Vol] 89 mg/dL Normal 82-115 [facility] Comment on above: Performed By: #### L AB15, [id number] ####Tempering Kiln Tender: TRACI LIZARRAGA ([id number])[facility])[address] [place] [address] Potassium [Moles/Vol] 4.1 mmol/L Normal 3.5-5.1 [facility] Comment on above: Result Comment: [facility] potassium values may be up to 0.5 mmol/L lower than serum values. Performed By: #### L AB15, [id number] ####Tempering Kiln Tender: TRACI LIZARRAGA ([id number])[facility] ([facility])[address] [place] [address] Sodium [Moles/Vol] 137 mmol/L Normal 136-145 [facility] Comment on above: Performed By: #### L AB15, [id number] ####Tempering Kiln Tender: TRACI LIZARRAGA ([id number])[facility])[address] [place] [address] Urea nitrogen [Mass/Vol] 31 mg/dL High 9-23 [facility] Comment on above: Performed By: #### L AB15, [id number] ####Tempering Kiln Tender: TRACI LIZARRAGA ([id number])[facility])[address] [place] [address] Bacteria identified Cx Nom ( U)on 08-16-2024 Interpretation and review of laboratory results Abnormal [facility] Basic metabolic 1998 panelon 08-16-2024 Anion gap [Moles/Vol] 11 mmol/L 3 - 13 mmol/L [facility] Calcium [Mass/Vol] 8.9 mg/dL 8.8 - 10. 0 mg/dL [facility] Chloride [Moles/Vol] 96 mmol/L Low 98 - 10 7 mmol/L [facility] CO2 [Moles/Vol] 30 mmol/L 23 - 31 mmol/L [facility] Creatinine [Mass/Vol] 1.38 mg/dL High 0.72 - 1.25 mg/dL [facility] GFR/1.73 sq M.predicted (S/P/Bld) [Vol rate/Area] 56.7 mL/min Low - PINF [facility] Glucose [Mass/Vol] 89 mg/dL 82 - 115 mg/dL [facility] Interpretation and review of laboratory results Abnormal [facility] Potassium [Moles/Vol] 4.1 mmol/L 3.5 - 5.1 mmol/L [facility] Sodium [Moles/Vol] 137 mmol/L 136 - 145 mmol/L [facility] Urea nitrogen [Mass/Vol] 31 mg/dL High 9 - 23 mg/dL [facility] CBC (HEMOGRAM)on 08-16-2024 Erythrocyte distribution width (RBC) [Ratio] 13.6 % Normal 11.5-15.0 [facility] Comment on above: Performed By: #### L [id number] ####Tempering Kiln Tender: TRACI LIZARRAGA ([id number])[address] Hematocrit (Bld) [Volume fraction] 34.1 % Low 40.0-52.0 [facility] Comment on above: Performed By: #### L [id number] ####Tempering Kiln Tender: TRACI LIZARRAGA ([id number])[facility])[address] [place] [address] Hemoglobin (Bld) [Mass/Vol] 10.7 g/dL Low 13.0-18.0 [facility] Comment on above: Performed By: #### L [id number] ####Tempering Kiln Tender: TRACI LIZARRAGA ([id number])[facility])[address] [place] [address] MCH (RBC) [Entitic mass] 28.6 pg Normal 26.0-34.0 [facility] Comment on above: Performed By: #### L AB294 ####Tempering Kiln Tender: TRACI LIZARRAGA ([id number])[facility])[address] [place] [address] MCHC 31.4 % Normal 30.5-36.0 [facility] Comment on above: Performed By: #### L [id number] ####Tempering Kiln Tender: TRACI LIZARRAGA ([id number])[facility])[address] [place] [address] MCV (RBC) [Entitic vol] 91.2 fL Normal 77.0-99.0 [facility] Comment on above: Performed By: #### L AB294 ####Tempering Kiln Tender: TRACI LIZARRAGA ([id number])[facility] ([facility])[address] [place] [address] Platelet mean volume (Bld) [Entitic vol] 10.0 fL Normal 9.0-12.7 [facility] Comment on above: Performed By: #### L [id number] ####Tempering Kiln Tender: TRACI LIZARRAGA ([id number])[facility] ([facility])[address] [place] [address] Platelets (Bld) [#/Vol] 192 10*3/uL Normal 140-440 [facility] Comment on above: Performed By: #### L [id number] ####Tempering Kiln Tender: TRACI LIZARRAGA ([id number])[facility] ([facility])[address] [place] [address] RBC (Bld) [#/Vol] 3.74 10*6/uL Low 4.40-5.90 [facility] Comment on above: Performed By: #### L AB294 ####Tempering Kiln Tender: TRACI LIZARRAGA ([id number])[facility] ([facility])[address] [place] [address] WBC (Bld) [#/Vol] 13.6 10*3/uL High 3.6-10.7 [facility] Comment on above: Performed By: #### L [id number] ####Tempering Kiln Tender: TRACI LIZARRAGA ([id number])[facility])[address] [place] [address] CBC panel Auto (Bld)on 08-16 Erythrocyte distribution width (RBC) [Ratio] 13.6 % 11.5 - 15.0 % [facility] Hematocrit (Bld) [Volume fraction] 34.1 % Low 40.0 - 52.0 % [facility] Hemoglobin (Bld) [Mass/Vol] 10.7 g/dL Low 13.0 - 18.0 g/dL [facility] Interpretation and review of laboratory results Abnormal [facility] MCH (RBC) [Entitic mass] 28.6 pg 26. 0 - 34.0 pg [facility] MCHC (RBC) [Mass/Vol] 31.4 % 30.5 - 36.0 % [facility] MCV (RBC) [Entitic vol] 91.2 fL 77.0 - 99.0 fL [facility] Platelet mean volume (Bld) [Entitic vol] 10 fL 9.0 - 12.7 fL [facility] Platelets (Bld) [#/Vol] 192 10*3/uL 140 - 440 10*3/uL [facility] RBC (Bld) [#/Vol] 3.74 10*6/uL Low 4.40 - 5.9 0 10*6/uL [facility] WBC (Bld) [#/Vol] 13.6 10*3/uL High 3.6 - 10.7 10*3/uL [facility] Consulton 08-16-2024 Consult Normal [facility] Laboratory - Chemistry and C hemistry - challengeon 08-16-2024 Glucose [Mass/Vol] 116 mg/dL High 70 - 100 mg/dL [facility] Glucose [Mass/Vol] 92 mg/dL 70 - 100 mg/dL [facility] Magnesium [Mass/Vol] 2.1 mg/dL 1.6 - 2 .6 mg/dL [facility] Laboratory - Microbiology an d Antimicrobial susceptibilityon 08-16-2024 Bacteria identified Cx Nom (U) >100,000 CFU/mL Enterobacter cloacae complex Abnormal [facility] MAGNESIUMon 08-16-2024 Magnesium [Mass/Vol] 2.1 mg/dL Normal 1.6-2.6 [facility] Comment on above: Result Comment: MELINDA Torres COMMENTS:Higher values can be expected in females during menses. Performed By: #### L AB15, [id number] ####Tempering Kiln Tender: TRACI LIZARRAGA ([id number])[facility] ([place] [id number] [place] Magnesium [Mass/Vol]on 08-16 Interpretation and review of laboratory results Normal [facility] No Panel Informationon 08-16 Interpretation and review of laboratory results Abnormal [facility] Interpretation and review of laboratory results Normal [facility] Progress Noteon 08-16-2024 Progress Note Normal [facility] Progress Note Normal [facility] Progress Note Normal [facility] Progress Note Normal [facility] XR CHEST 1 VIEWon 08-16-2024 XR CHEST 1 VIEW Normal [facility] XR Chest Single viewon 08-16 [facility] Radiology Study observation (narrative) [facility] 30on 08-15-2024 30 Normal [facility] BASIC METABOLIC PANELon 07-28 Anion gap [Moles/Vol] 10 mmol/L Normal 3-[address] [facility] Comment on above: Performed By: #### L AB15, [id number] ####Tempering Kiln Tender: TRACI LIZARRAGA ([id number])[facility])[address] [place] [address] [place] Calcium [Mass/Vol] 8.9 mg/dL Normal 8.8-10.0 [facility] Comment on above: Performed By: #### L AB15, [id number] ####Tempering Kiln Tender: TRACI LIZARRAGA ([id number])[facility] ([facility])[address] [place] [address] [place] Chloride [Moles/Vol] 97 mmol/L Low 98-107 [facility] Comment on above: Performed By: #### L AB15, [id number] ####Tempering Kiln Tender: TRACI LIZARRAGA ([id number])[facility])[address] [place] [address] CO2 [Moles/Vol] 32 mmol/L High 23-31 [facility] Comment on above: Performed By: #### L AB15, [id number] ####Tempering Kiln Tender: TRACI LIZARRAGA ([id number])[facility] ([facility] [place] [address] [place] Creatinine [Mass/Vol] 1.28 mg/dL High 0.72-1.25 [facility] Comment on above: Performed By: #### L AB15, [id number] ####Tempering Kiln Tender: TRACI LIZARRAGA ([id number])[facility] ([facility])[address] [place] [address] [place] GLOMERULAR FILTRATION RATE ML/MIN/1.73 SQ M.PREDICTED 62.1 mL/min/1.73m*2 Normal >60.0 [facility] Comment on above: Result Comment: Calc ulation based on the Chronic Kidney Disease Epidemiology Collaboration (CKD-EPI) equation refit without adjustment for race Performed By: #### L AB15, [id number] ####Tempering Kiln Tender: TRACI LIZARRAGA ([id number])[facility] ([facility])[address] [place] [address] [place] Glucose [Mass/Vol] 116 mg/dL High 82-115 [facility] Comment on above: Performed By: #### L AB15, [id number] ####Tempering Kiln Tender: TRACI LIZARRAGA ([id number])[facility])[address] [place] [address] [place] Potassium [Moles/Vol] 3.7 mmol/L Normal 3.5-5.1 [facility] Comment on above: Result Comment: [facility] potassium values may be up to 0.5 mmol/L lower than serum values. Performed By: #### L AB15, [id number] ####Tempering Kiln Tender: TRACI LIZARRAGA ([id number])[facility] ([facility])[address] [place] [address] [place] Sodium [Moles/Vol] 139 mmol/L Normal 136-145 [facility] Comment on above: Performed By: #### L AB15, [id number] ####Tempering Kiln Tender: TRACI LIZARRAGA ([id number])[facility] ([facility] [place] [address] [place] Urea nitrogen [Mass/Vol] 27 mg/dL High 9-23 [facility] Comment on above: Performed By: #### L AB15, [id number] ####Tempering Kiln Tender: TRACI LIZARRAGA ([id number])[facility] ([facility])[address] [place] [address] Basic metabolic 1998 panelon 08-15-2024 Anion gap [Moles/Vol] 10 mmol/L 3 - 13 mmol/L [facility] Calcium [Mass/Vol] 8.9 mg/dL 8.8 - 10. 0 mg/dL [facility] Chloride [Moles/Vol] 97 mmol/L Low 98 - 10 7 mmol/L [facility] CO2 [Moles/Vol] 32 mmol/L High 23 - 31 mmol/L [facility] Creatinine [Mass/Vol] 1.28 mg/dL High 0.72 - 1.25 mg/dL [facility] GFR/1.73 sq M.predicted (S/P/Bld) [Vol rate/Area] 62.1 mL/min - PINF [facility] Glucose [Mass/Vol] 116 mg/dL High 82 - 115 mg/dL [facility] Interpretation and review of laboratory results Abnormal [facility] Potassium [Moles/Vol] 3.7 mmol/L 3.5 - 5.1 mmol/L [facility] Sodium [Moles/Vol] 139 mmol/L 136 - 145 mmol/L [facility] Urea nitrogen [Mass/Vol] 27 mg/dL High 9 - 23 mg/dL [facility] CBC (HEMOGRAM)on 08-15-2024 Erythrocyte distribution width (RBC) [Ratio] 14.0 % Normal 11.5-15.0 [facility] Comment on above: Performed By: #### L [id number] ####Tempering Kiln Tender: TRACI LIZARRAGA ([id number])[facility] ([facility])[address] [place] [address] Hematocrit (Bld) [Volume fraction] 34.0 % Low 40.0-52.0 [facility] Comment on above: Performed By: #### L [id number] ####Tempering Kiln Tender: TRACI LIZARRAGA ([id number])[facility] ([facility])[address] [place] [address] Hemoglobin (Bld) [Mass/Vol] 11.1 g/dL Low 13.0-18.0 [facility] Comment on above: Performed By: #### L [id number] ####Tempering Kiln Tender: TRACI LIZARRAGA ([id number])[facility])[address] [place] [address] MCH (RBC) [Entitic mass] 29.2 pg Normal 26.0-34.0 [facility] Comment on above: Performed By: #### L [id number] ####Tempering Kiln Tender: TRACI LIZARRAGA ([id number])[facility])[address] [place] [address] MCHC 32.6 % Normal 30.5-36.0 [facility] Comment on above: Performed By: #### L [id number] ####Tempering Kiln Tender: TRACI LIZARRAGA ([id number])[facility])[address] [place] [address] MCV (RBC) [Entitic vol] 89.5 fL Normal 77.0-99.0 [facility] Comment on above: Performed By: #### L [id number] ####Tempering Kiln Tender: TRACI LIZARRAGA ([id number])[facility])[address] [place] [address] Platelet mean volume (Bld) [Entitic vol] 9.7 fL Normal 9.0-12.7 [facility] Comment on above: Performed By: #### L [id number] ####Tempering Kiln Tender: TRACI LIZARRAGA ([id number])[facility])[address] [place] [address] Platelets (Bld) [#/Vol] 196 10*3/uL Normal 140-440 [facility] Comment on above: Performed By: #### L [id number] ####Tempering Kiln Tender: TRACI LIZARRAGA ([id number])[facility])[address] [place] [address] RBC (Bld) [#/Vol] 3.80 10*6/uL Low 4.40-5.90 [facility] Comment on above: Performed By: #### L [id number] ####Tempering Kiln Tender: TRACI LIZARRAGA ([id number])[facility] ([facility])[address] [place] [address] WBC (Bld) [#/Vol] 13.0 10*3/uL High 3.6-10.7 [facility] Comment on above: Performed By: #### L [id number] ####Tempering Kiln Tender: TRACI LIZARRAGA ([id number])[facility] ([facility])[address] [place] [address] CBC panel Auto (Bld)on 08-15 Erythrocyte distribution width (RBC) [Ratio] 14 % 11.5 - 15.0 % [facility] Hematocrit (Bld) [Volume fraction] 34 % Low 40.0 - 52.0 % [facility] Hemoglobin (Bld) [Mass/Vol] 11.1 g/dL Low 13.0 - 18.0 g/dL [facility] Interpretation and review of laboratory results Abnormal [facility] MCH (RBC) [Entitic mass] 29.2 pg 26. 0 - 34.0 pg [facility] MCHC (RBC) [Mass/Vol] 32.6 % 30.5 - 36.0 % [facility] MCV (RBC) [Entitic vol] 89.5 fL 77.0 - 99.0 fL [facility] Platelet mean volume (Bld) [Entitic vol] 9.7 fL 9.0 - 12.7 fL [facility] Platelets (Bld) [#/Vol] 196 10*3/uL 140 - 440 10*3/uL [facility] RBC (Bld) [#/Vol] 3.8 10*6/uL Low 4.40 - 5.9 0 10*6/uL [facility] WBC (Bld) [#/Vol] 13 10*3/uL High 3.6 - 10.7 10*3/uL [facility] Consulton 08-15-2024 Consult Normal [facility] ECG 12-LEADon 08-15-2024 ECG 12-LEAD IMPRESSION: Probable sinus rhythm Baseline artifact Right bundle branch block Inferior infarct, age indeterminate Electronically Signed On 08-15-2024 15:47:38 EDT by Christian Castro Normal [facility] Laboratory - Chemistry and C hemistry - challengeon 08-15-2024 Glucose [Mass/Vol] 91 mg/dL 70 - 100 mg/dL [facility] Glucose [Mass/Vol] 97 mg/dL 70 - 100 mg/dL [facility] Glucose [Mass/Vol] 128 mg/dL High 70 - 100 mg/dL [facility] Magnesium [Mass/Vol] 1.9 mg/dL 1.6 - 2 .6 mg/dL [facility] MAGNESIUMon 08-15-2024 Magnesium [Mass/Vol] 1.9 mg/dL Normal 1.6-2.6 [facility] [employer] [facility] Comment on above: Result Comment: ORDE R COMMENTS:Higher values can be expected in females during menses. Performed By: #### L AB15, [id number] ####Tempering Kiln Tender: TRACI LIZARRAGA ([id number])[facility] ([facility] Magnesium [Mass/Vol]on 08-15 Interpretation and review of laboratory results Normal [facility] No Panel Informationon 08-15 Interpretation and review of laboratory results Normal [facility] CV EPIPHANY [facility] Interpretation and review of laboratory results Normal [facility] Interpretation and review of laboratory results Abnormal [facility] No Panel InformationOrdered By: Christian Castro on 08-15-2024 P [place] 83 degrees [facility] [employer] Work Phone: MT Interval 131 ms [facility] [employer] Work Phone: QRS [place] 83 degrees [facility] [employer] Work Phone: QRSD Interval 162 ms [facility] [employer] Work Phone: QT Interval 459 ms [facility] [employer] Work Phone: QTC Interval 528 ms [facility] [employer] Work Phone: T Wave [place] 62 degrees [facility] [employer] Work Phone: [facility] [employer] Work Phone: Progress Noteon 08-15-2024 Progress Note Normal [facility] Progress Note Normal [facility] Progress Note Normal [facility] Progress Note Normal [facility] Progress Note Normal [facility] Progress Note Normal [facility] Progress Note Normal [facility] US Kidneyon 08-15-2024 [facility] Radiology Study observation (narrative) Torres lopez US RENAL COMPLETEon 08-16-19 US RENAL COMPLETE Normal [facility] Vital signsOrdered By: Eulogio Castro on 08-15-2024 Heart rate 79 /min bpm [facility] [employer] Work Phone: XR CHEST 1 VIEWon 08-15-2024 XR CHEST 1 VIEW Normal [facility] XR Chest Single viewon 08-15 [facility] Radiology Study observation (narrative) Torres lopez BASIC METABOLIC PANELon 07-28 Anion gap [Moles/Vol] 11 mmol/L Normal 3-13 [facility] Comment on above: Performed By: #### L AB15 ####Tempering Kiln Tender: TRACI LIZARRAGA ([id number])[facility] ([facility])[address] [place] [address] Calcium [Mass/Vol] 9.1 mg/dL Normal 8.8-10.0 [facility] Comment on above: Performed By: #### L AB15 ####Tempering Kiln Tender: TRACI LIZARRAGA ([id number])[facility] ([facility])[address] [place] [address] [place] Chloride [Moles/Vol] 94 mmol/L Low 98-107 [facility] Comment on above: Performed By: #### L AB15 ####Tempering Kiln Tender: TRACI LIZARRAGA ([id number])[facility] ([facility])[address] [place] [address] [place] CO2 [Moles/Vol] 32 mmol/L High 23-31 [facility] Comment on above: Performed By: #### L AB15 ####Tempering Kiln Tender: TRACI LIZARRAGA ([id number])[facility] ([facility])[address] [place] [address] [place] Creatinine [Mass/Vol] 1.34 mg/dL High 0.72-1.25 [facility] Comment on above: Performed By: #### L AB15 ####Tempering Kiln Tender: TRACI LIZARRAGA ([id number])[facility])[address] [place] [address] GLOMERULAR FILTRATION RATE ML/MIN/1.73 SQ M.PREDICTED 58.8 mL/min/1.73m*2 Low >60.0 [facility] Comment on above: Result Comment: Calc ulation based on the Chronic Kidney Disease Epidemiology Collaboration (CKD-EPI) equation refit without adjustment for race Performed By: #### L AB15 ####Tempering Kiln Tender: TRACI LIZARRAGA ([id number])[facility])[address] [place] [address] Glucose [Mass/Vol] 102 mg/dL Normal 82-115 [facility] Comment on above: Performed By: #### L AB15 ####Tempering Kiln Tender: TRACI LIZARRAGA ([id number])[address] Potassium [Moles/Vol] 3.9 mmol/L Normal 3.5-5.1 [facility] Comment on above: Result Comment: [facility] potassium values may be up to 0.5 mmol/L lower than serum values. Performed By: #### L AB15 ####Tempering Kiln Tender: TRACI LIZARRAGA ([id number])[address] Sodium [Moles/Vol] 137 mmol/L Normal 136-145 [facility] Comment on above: Performed By: #### L AB15 ####Tempering Kiln Tender: TRACI LIZARRAGA ([id number])[facility])[address] [place] [address] Urea nitrogen [Mass/Vol] 28 mg/dL High 9-23 [facility] Comment on above: Performed By: #### L AB15 ####Tempering Kiln Tender: TRACI LIZARRAGA ([id number])[address] Anion gap [Moles/Vol] 13 mmol/L Normal 3-13 [facility] Comment on above: Performed By: #### L AB103, LAB15 ####Tempering Kiln Tender: TRACI LIZARRAGA ([id number])[facility] ([facility] [place] [address] Calcium [Mass/Vol] 9.0 mg/dL Normal 8.8-10.0 [facility] Comment on above: Performed By: #### L AB103, LAB15 ####Tempering Kiln Tender: TRACI LIZARRAGA ([id number])[facility] ([facility] [place] [address] Chloride [Moles/Vol] 94 mmol/L Low 98-107 [facility] Comment on above: Performed By: #### L AB103, LAB15 ####Tempering Kiln Tender: TRACI LIZARRAGA ([id number])[facility] ([facility] [place] [address] CO2 [Moles/Vol] 34 mmol/L High 23-31 [facility] Comment on above: Performed By: #### L AB103, LAB15 ####Tempering Kiln Tender: TRACI LIZARRGAA ([id number])[facility] [place] [address] Creatinine [Mass/Vol] 1.26 mg/dL High 0.72-1.25 [facility] Comment on above: Performed By: #### L AB103, LAB15 ####Tempering Kiln Tender: TRACI LIZARRAGA ([id number])[facility] ([facility])[address] [place] [address] [place] GLOMERULAR FILTRATION RATE ML/MIN/1.73 SQ M.PREDICTED 63.3 mL/min/1.73m*2 Normal >60.0 [facility] Comment on above: Result Comment: Calc ulation based on the Chronic Kidney Disease Epidemiology Collaboration (CKD-EPI) equation refit without adjustment for race Performed By: #### L AB103, LAB15 ####Tempering Kiln Tender: TRACI LIZARRAGA ([id number])[facility] [place] [address] Glucose [Mass/Vol] 96 mg/dL Normal 82-115 [facility] Comment on above: Performed By: #### L AB103, LAB15 ####Tempering Kiln Tender: TRACI LIZARRAGA ([id number])[facility])[address] [place] [address] Potassium [Moles/Vol] 3.4 mmol/L Low 3.5-5.1 [facility] Comment on above: Result Comment: [facility] potassium values may be up to 0.5 mmol/L lower than serum values. Performed By: #### L AB103, LAB15 ####Tempering Kiln Tender: TRACI LIZARRAGA ([id number])[facility])[address] [place] [address] Sodium [Moles/Vol] 141 mmol/L Normal 136-145 [facility] Comment on above: Performed By: #### L AB103, LAB15 ####Tempering Kiln Tender: TRACI LIZARRAGA ([id number])[facility])[address] [place] [address] Urea nitrogen [Mass/Vol] 35 mg/dL High 9-23 [facility] Comment on above: Performed By: #### L AB103, LAB15 ####Tempering Kiln Tender: TRACI LIZARRAGA ([id number])[facility])[address] [place] [address] BLOOD GAS ARTERIALon 18-2 025 AMOUNT OF OXYGEN 100 Normal [facility] Comment on above: Performed By: #### L AB76 ####Tempering Kiln Tender: TRACI LIZARRAGA ([id number])[facility])[address] [place] [address] Base excess Calc (Bld) [Moles/Vol] 10.1 mmol/L High -3.0-3.0 [facility] Comment on above: Performed By: #### L AB76 ####Tempering Kiln Tender: TRACI LIZARRAGA ([id number])[facility])[address] [place] [address] CO2 [Moles/Vol] 37.6 mmol/L High 23.0-27.0 [facility] Comment on above: Performed By: #### L AB76 ####Tempering Kiln Tender: TRACI LIZARRAGA ([id number])[facility] ([facility])[address] [place] [address] HCO3 (Bld) [Moles/Vol] 35.9 mmol/L High 21.0-25.0 S [facility] Comment on above: Performed By: #### L [id number] ####Tempering Kiln Tender: TRACI LIZARRAGA ([phone])[facility] ([facility])[address] [place] [address] Hemoglobin (Bld) [Mass/Vol] 11.9 g/dL Normal Screen only [facility] Comment on above: Performed By: #### L [id number] ####Tempering Kiln Tender: TRACI LIZARRAGA ([id number])[facility] ([facility])[address] [place] [address] OXYGEN SATURATION (%) IN ARTERIAL BLOOD 98.8 % Normal 95.0-100.0 [facility] Comment on above: Performed By: #### L [id number] ####Tempering Kiln Tender: TRACI LIZARRAGA ([phone])[facility] ([facility])[address] [place] [address] PCO2 ARTERIAL 53.7 mm Hg High >35.0-<45.0 [facility] Comment on above: Performed By: #### L [id number] ####Tempering Kiln Tender: TRACI LIZARRAGA ([phone])[facility] ([facility])[address] [place] [address] PH ARTERIAL 7.443 Normal 7.350-7.450 [facility] Comment on above: Performed By: #### L [id number] ####Tempering Kiln Tender: TRACI LIZARRAGA ([phone])[facility] ([facility])[address] [place] [address] PO2 ARTERIAL 168.7 mm Hg High 80.0-100.0 [facility] Comment on above: Performed By: #### L [id number] ####Tempering Kiln Tender: TRACI LIZARRAGA ([id number])[facility] ([facility])[address] [place] [address] SOURCE OF OXYGEN Non- Rebreather Mask (100%) Normal [facility] Comment on above: Performed By: #### L [id number] ####Tempering Kiln Tender: TRACI LIZARRAGA ([id number])[facility] ([facility])[address] [place] [address] Basic metabolic 1998 panelon 08-14-2024 Anion gap [Moles/Vol] 11 mmol/L 3 - 13 mmol/L [facility] Calcium [Mass/Vol] 9.1 mg/dL 8.8 - 10. 0 mg/dL [facility] Chloride [Moles/Vol] 94 mmol/L Low 98 - 10 7 mmol/L [facility] CO2 [Moles/Vol] 32 mmol/L High 23 - 31 mmol/L [facility] Creatinine [Mass/Vol] 1.34 mg/dL High 0.72 - 1.25 mg/dL [facility] GFR/1.73 sq M.predicted (S/P/Bld) [Vol rate/Area] 58.8 mL/min Low - PINF [facility] Glucose [Mass/Vol] 102 mg/dL 82 - 115 mg/dL [facility] Interpretation and review of laboratory results Abnormal [facility] Potassium [Moles/Vol] 3.9 mmol/L 3.5 - 5.1 mmol/L [facility] Sodium [Moles/Vol] 137 mmol/L 136 - 145 mmol/L [facility] Urea nitrogen [Mass/Vol] 28 mg/dL High 9 - 23 mg/dL [facility] Anion gap [Moles/Vol] 13 mmol/L 3 - 13 mmol/L [facility] Calcium [Mass/Vol] 9 mg/dL 8.8 - 10. 0 mg/dL [facility] Chloride [Moles/Vol] 94 mmol/L Low 98 - 10 7 mmol/L [facility] CO2 [Moles/Vol] 34 mmol/L High 23 - 31 mmol/L [facility] Creatinine [Mass/Vol] 1.26 mg/dL High 0.72 - 1.25 mg/dL [facility] GFR/1.73 sq M.predicted (S/P/Bld) [Vol rate/Area] 63.3 mL/min - PINF [facility] Glucose [Mass/Vol] 96 mg/dL 82 - 115 mg/dL [facility] Interpretation and review of laboratory results Abnormal [facility] Potassium [Moles/Vol] 3.4 mmol/L Low 3.5 - 5.1 mmol/L [facility] Sodium [Moles/Vol] 141 mmol/L 136 - 145 mmol/L [facility] Urea nitrogen [Mass/Vol] 35 mg/dL High 9 - 23 mg/dL [facility] CBC (HEMOGRAM)on 08-14-2024 Erythrocyte distribution width (RBC) [Ratio] 14.3 % Normal 11.5-15.0 [facility] Comment on above: Performed By: #### L [id number] ####Tempering Kiln Tender: TRACI LIZARRAGA ([phone])[facility])[address] [place] [address] Hematocrit (Bld) [Volume fraction] 32.8 % Low 40.0-52.0 [facility] Comment on above: Performed By: #### L [id number] ####Tempering Kiln Tender: TRACI LIZARRAGA ([id number])[facility] ([facility])[address] [place] [address] Hemoglobin (Bld) [Mass/Vol] 10.7 g/dL Low 13.0-18.0 [facility] Comment on above: Performed By: #### L [id number] ####Tempering Kiln Tender: TRACI LIZARRAGA ([id number])[facility] ([facility])[address] [place] [address] MCH (RBC) [Entitic mass] 29.2 pg Normal 26.0-34.0 [facility] Comment on above: Performed By: #### L [id number] ####Tempering Kiln Tender: TRACI LIZARRAGA ([id number])[facility])[address] [place] [address] MCHC 32.6 % Normal 30.5-36.0 [facility] Comment on above: Performed By: #### L [id number] ####Tempering Kiln Tender: TRACI [id number])[facility])[address] [place] [address] MCV (RBC) [Entitic vol] 89.4 fL Normal 77.0-99.0 S [facility] Comment on above: Performed By: #### L [id number] ####Tempering Kiln Tender: TRACI LIZARRAGA ([id number])[facility] ([facility])[address] [place] [address] Platelet mean volume (Bld) [Entitic vol] 9.8 fL Normal 9.0-12.7 [facility] Comment on above: Performed By: #### L [id number] ####Tempering Kiln Tender: TRACI LIZARRAGA ([id number])[facility] ([facility])[address] [place] [address] Platelets (Bld) [#/Vol] 206 10*3/uL Normal 140-440 [facility] Comment on above: Performed By: #### L [id number] ####Tempering Kiln Tender: TRACI LIZARRAGA ([id number])[facility] ([facility])[address] [place] [address] RBC (Bld) [#/Vol] 3.67 10*6/uL Low 4.40-5.90 [facility] Comment on above: Performed By: #### L [id number] ####Tempering Kiln Tender: TRACI LIZARRAGA ([id number])[facility] ([facility])[address] [place] [address] WBC (Bld) [#/Vol] 11.4 10*3/uL High 3.6-10.7 [facility] Comment on above: Performed By: #### L [id number] ####Tempering Kiln Tender: TRACI LIZARRAGA ([id number])[facility])[address] [place] [address] CBC panel Auto (Bld)on 08-14 Erythrocyte distribution width (RBC) [Ratio] 14.3 % 11.5 - 15.0 % [facility] Hematocrit (Bld) [Volume fraction] 32.8 % Low 40.0 - 52.0 % [facility] Hemoglobin (Bld) [Mass/Vol] 10.7 g/dL Low 13.0 - 18.0 g/dL [facility] Interpretation and review of laboratory results Abnormal [facility] MCH (RBC) [Entitic mass] 29.2 pg 26. 0 - 34.0 pg [facility] MCHC (RBC) [Mass/Vol] 32.6 % 30.5 - 36.0 % [facility] MCV (RBC) [Entitic vol] 89.4 fL 77.0 - 99.0 fL [facility] Platelet mean volume (Bld) [Entitic vol] 9.8 fL 9.0 - 12.7 fL [facility] Platelets (Bld) [#/Vol] 206 10*3/uL 140 - 440 10*3/uL [facility] RBC (Bld) [#/Vol] 3.67 10*6/uL Low 4.40 - 5.9 0 10*6/uL [facility] WBC (Bld) [#/Vol] 11.4 10*3/uL High 3.6 - 10.7 10*3/uL [facility] COMPLETE URINALYSIS WITH REF RAMON TO CULTUREon 08-14-2024 BACTERIA (#/HPF) IN URINE Negative Normal Negative [facility] Comment on above: Performed By: #### L [id number], [id number] ####Tempering Kiln Tender: TRACI LIZARRAGA ([id number])[address] BILIRUBIN, TOTAL PRESENCE IN URINE Negative Normal Negative [facility] Comment on above: Performed By: #### L [id number], [id number] ####Tempering Kiln Tender: TRACI LIZARRAGA ([id number])[address] Clarity (U) Clear Normal Clear [facility] Comment on above: Performed By: #### L [id number], [id number] ####Tempering Kiln Tender: TRACI LIZARRAGA ([id number])[address] Color (U) Light Yellow Normal Lt. Yellow [facility] Comment on above: Performed By: #### L [id number], [id number] ####Tempering Kiln Tender: TRACI LIZARRAGA ([id number])[facility] [place] [address] [place] GLUCOSE (MG/DL) IN URINE Normal Normal Nor mal (<70) [facility] Comment on above: Performed By: #### L [id number], [id number] ####Tempering Kiln Tender: TRACI LIZARRAGA ([id number])[facility] ([facility])[address] [place] [address] HEMOGLOBIN PRESENCE IN URINE 0.2 mg/dL Abnormal Negative [facility] Comment on above: Performed By: #### L [id number], [id number] ####Tempering Kiln Tender: TRACI LIZARRAGA ([phone])[facility] ([facility])[address] [place] [address] HYALINE CASTS (#/LPF) IN URINE SEDIMENT BY MICROSCOPY Negative Normal Negative [facility] Comment on above: Performed By: #### L [id number], [id number] ####Tempering Kiln Tender: TRACI LIZARRAGA ([id number])[facility] ([facility] [place] [address] [place] Ketones Ql (U) 10 mg/dL Abnormal Negative [facility] Comment on above: Performed By: #### L [id number], [id number] ####Tempering Kiln Tender: TRACI LIZARRAGA ([id number])[facility] ([facility])[address] [place] [address] LEUKOCYTE ESTERASE PRESENCE IN URINE BY TEST STRIP 250 Puneet/uL Abnormal Negative [facility] Comment on above: Performed By: #### L [id number], [id number] ####Tempering Kiln Tender: TRACI LIZARRAGA ([id number])[facility] ([facility])[address] [place] [address] [place] NITRITE PRESENCE IN URINE Negative Normal Negative [facility] Comment on above: Performed By: #### L [id number], [id number] ####Tempering Kiln Tender: TRACI LIZARRAGA ([phone])[facility] ([facility] [place] [address] [place] pH (U) 8.5 [pH] Abnormal 5.0-8.0 [facility] Comment on above: Performed By: #### L [id number], [id number] ####Tempering Kiln Tender: TRACI LIZARRAGA ([phone])[facility] ([facility])[address] [place] [address] Protein (U) [Mass/Vol] 30 mg/dL Abnormal Negative [facility] Comment on above: Performed By: #### L [id number], [id number] ####Tempering Kiln Tender: TRACI LIZARRAGA ([phone])[facility])[address] [place] [address] RBC (#/HPF) IN URINE SEDIMENT >100 Abnormal 0-2 [facility] Comment on above: Performed By: #### L [id number], [id number] ####Tempering Kiln Tender: TRACI LIZARRAGA ([id number])[facility])[address] [place] [address] Specific gravity (U) [Rel density] 1.015 Normal 1.005-1.030 [facility] Comment on above: Result Comment: MELINDA Torres COMMENTS:This specimen has been reflexed to urine culture. Performed By: #### L [id number], [id number] ####Tempering Kiln Tender: TRACI LIZARRAGA ([id number])[facility])[address] [place] [address] SQUAMOUS EPITHELIAL CELLS (#/HPF) IN URINE SEDIMENT Negative Normal 3-5 [facility] Comment on above: Performed By: #### L [id number], [id number] ####Tempering Kiln Tender: TRACI LIZARRAGA ([id number])[facility] ([facility])[address] [place] [address] UROBILINOGEN (MG/DL) IN URINE Normal Normal Normal (0-1) [facility] Comment on above: Performed By: #### L [id number], [id number] ####Tempering Kiln Tender: TRACI LIZARRAGA ([phone])[facility])[address] [place] [address] WBC (LEUKOCYTE) (#/HPF) IN URINE SEDIMENT 26-50 Abnormal 0-5 [facility] Comment on above: Performed By: #### L [id number], [id number] ####Tempering Kiln Tender: TRACI LIZARRAGA ([phone])[facility] ([address] CERVICAL SPINE WO IV CONT RASTon 08-14-2024 CT CERVICAL SPINE WO IV CONTRAST Normal [facility] CT HEAD WO IV CONTRASTon CT HEAD WO IV CONTRAST Normal [facility] Consulton 08-14-2024 Consult Normal [facility] ECG 12-LEADon 08-14-2024 ECG 12-LEAD IMPRESSION: ATRIAL FIBRILLATION WITH RAPID VENTRICULAR RESPONSE Right bundle branch block Inferior infarct, age indeterminate ST depr, consider ischemia, anterolateral lds Electronically Signed On 08-14-2024 12:59:48 EDT by Yousuf Norton [facility] ECG 12-LEAD IMPRESSION: Sinus tachycardia Right bundle branch block ST depr, consider ischemia, anterolateral lds Electronically Signed On 08-14-2024 12:58:37 EDT by Yousuf Norton [facility] Laboratory - Chemistry and C hemistry - challengeon 08-14-2024 Glucose [Mass/Vol] 119 mg/dL High 70 - 100 mg/dL [facility] Glucose [Mass/Vol] 211 mg/dL High 70 - 100 mg/dL [facility] Glucose [Mass/Vol] 109 mg/dL High 70 - 100 mg/dL [facility] Glucose [Mass/Vol] 107 mg/dL High 70 - 100 mg/dL [facility] Glucose [Mass/Vol] 118 mg/dL High 70 - 100 mg/dL [facility] Magnesium [Mass/Vol] 1.9 mg/dL 1.6 - 2 .6 mg/dL [facility] Laboratory - Chemistry and C hemistry - challengeOrdered By: Mali Gao on 08-14-2024 Base excess Calc (Bld) [Moles/Vol] 10.1 mmol/L High -3.0 - 3.0 mmol/L [facility] CO2 (Bld) [Partial pressure] 53.7 mm[Hg] High - PINF [facility] CO2 [Moles/Vol] 37.6 mmol/L High 23.0 - 27.0 mmol/L [facility] HCO3 (Bld) [Moles/Vol] 35.9 mmol/L High 21.0 - 25.0 mmol/L [facility] Oxygen (Bld) [Partial pressure] 168.7 mm[Hg] High [facility] pH (Bld) 7.443 [pH] 7.350 - 7.450 [facility] Laboratory - Hematology and Cell countsOrdered By: Mali Gao on 08-14-2024 Hemoglobin (Bld) [Mass/Vol] 11.9 g/dL 7.0 g/dl [facility] MAGNESIUMon 08-14-2024 Magnesium [Mass/Vol] 1.9 mg/dL Normal 1.6-2.6 [facility] Comment on above: Result Comment: MELINDA Torres COMMENTS:Higher values can be expected in females during menses. Performed By: #### L [id number], [id number] ####Tempering Kiln Tender: TRACI LIZARRAGA ([phone])[facility] ([address] Magnesium [Mass/Vol]on 08-14 Interpretation and review of laboratory results Normal [facility] No Panel Informationon 08-14 Interpretation and review of laboratory results Abnormal [facility] RADIOLOGY SYSTEM [facility] Interpretation and review of laboratory results Abnormal [facility] Radiology Study observation (narrative) [facility] Interpretation and review of laboratory results Abnormal [facility] P [place] 156 degrees [facility] MT Interval 103 ms [facility] QRS [place] 81 degrees [facility] QRSD Interval 159 ms [facility] QT Interval 368 ms [facility] QTC Interval 518 ms [facility] T Wave [place] -57 degrees [facility] CV EPIPHANY [facility] CV EPIPHANY [facility] Interpretation and review of laboratory results Abnormal [facility] Interpretation and review of laboratory results Abnormal [facility] No Panel InformationOrdered By: Derian Tafoya on 08-14-2024 [facility] Work Phone: No Panel InformationOrdered By: Mali Gao on 08-14-2024 Amount Of Oxygen 100 [facility] Interpretation and review of laboratory results Abnormal [facility] Source Of Oxygen Non- Rebreather Mask (100%) [facility] [employer] No Panel InformationOrdered By: Yousuf Mari on 08-14-2024 P [place] 0 degrees [facility] [employer] Work Phone: MT Interval 92 ms [facility] [employer] Work Phone: QRS [place] 80 degrees [facility] Work Phone: QRSD Interval 153 ms [facility] [employer] Work Phone: QT Interval 393 ms [facility] Work Phone: QTC Interval 577 ms [employer] Work Phone: T Wave [place] -24 degrees [facility] Work Phone: [facility] Work Phone: Progress Noteon 08-14-2024 Progress Note Normal [facility] Progress Note Normal [facility] Progress Note Normal [facility] Progress Note Normal [facility] Progress Note Normal [facility] URINE CULTUREon 08-14-2024 Bacteria identified Cx Nom (U) Normal [facility] Comment on above: Performed By: #### L [id number], [id number] ####Tempering Kiln Tender: TRACI LIZARRAGA ([id number])[address] Urinalysis complete panel (U )Ordered By: Grace Trotter on 08-14-2024 Bacteria LM.HPF (Urine sed) [#/Area] Negative Negative /HPF [facility] Bilirubin Ql (U) Negative Negative mg/dL [facility] Clarity (U) Clear Clear [facility] Color (U) Light Yellow Lt. Yellow [facility] Epithelial cells.squamous LM.HPF (Urine sed) [#/Area] Negative [facility] Glucose Ql (U) Normal Normal (<70) mg/dL [facility] Hemoglobin Ql (U) 0.2 mg/dL Abnormal Negative [facility] Hyaline casts Auto (Urine sed) [#/Area] Negative Negative /LPF [facility] Interpretation and review of laboratory results Abnormal [facility] Ketones (U) [Mass/Vol] 10 mg/dL Abnormal Negative [facility] Leukocyte esterase Test strip Ql (U) 250 Abnormal Negative Puneet/uL [facility] Nitrite Ql (U) Negative Negative [facility] th pH (U) 8.5 [pH] Abnormal 5.0 - 8.0 pH [facility] Protein (U) [Mass/Vol] 30 mg/dL Abnormal Negative [facility] RBC LM.HPF (Urine sed) [#/Area] /[HPF] Abnormal [facility] Specific gravity (U) [Rel density] 1.015 1.005 - 1.030 [facility] Urobilinogen (U) [Mass/Vol] Normal Normal (0-1) mg/dL [facility] WBC LM.HPF (Urine sed) [#/Area] 26-50 Abnormal [facility] Vital signson 08-14-2024 Heart rate 127 /min bpm [facility] Vital signsOrdered By: Yousuf Mari on 08-14-2024 Heart rate 129 /min bpm [facility] Work Phone: XR CHEST 1 VIEWon 08-14-2024 XR CHEST 1 VIEW Normal [facility] XR CHEST 1 VIEW Normal [facility] XR Chest Single viewon 08-14 [facility] Radiology Study observation (narrative) [facility] Radiology Study observation (narrative) [facility] XR PELVIS 1-2 VIEWSon 2024 XR PELVIS 1-2 VIEWS Normal [facility] XR Pelvis 1 or 2 Viewson [facility] Radiology Study observation (narrative) [facility] XR Pelvis 1 or 2 ViewsOrdere d By: Jayesh Bailon on 08-14-2024 [facility] Work Phone: 30on 08-13-2024 30 Normal [facility] BASIC METABOLIC PANELon 07-28 Anion gap [Moles/Vol] 14 mmol/L High 3-13 [facility] Comment on above: Performed By: #### L [id number] ####Tempering Kiln Tender: TRACI LIZARRAGA ([id number])[facility] ([facility] Calcium [Mass/Vol] 9.6 mg/dL Normal 8.8-10.0 [facility] Comment on above: Performed By: #### L [id number] ####Tempering Kiln Tender: TRACI LIZARRAGA ([phone])[facility] ([facility])[address] [place] [address] Chloride [Moles/Vol] 94 mmol/L Low 98-107 [facility] Comment on above: Performed By: #### L AB15 ####Tempering Kiln Tender: TRACI LIZARRAGA ([id number])[facility] ([facility])[address] [place] [address] CO2 [Moles/Vol] 33 mmol/L High 23-31 [facility] Comment on above: Performed By: #### L AB15 ####Tempering Kiln Tender: TRACI LIZARRAGA ([phone])[facility] ([facility])[address] [place] [address] Creatinine [Mass/Vol] 1.32 mg/dL High 0.72-1.25 [facility] Comment on above: Performed By: #### L AB15 ####Tempering Kiln Tender: TRACI LIZARRAGA ([id number])[facility] ([facility])[address] [place] [address] [place] GLOMERULAR FILTRATION RATE ML/MIN/1.73 SQ M.PREDICTED 59.9 mL/min/1.73m*2 Low >60.0 [facility] Comment on above: Result Comment: Calc ulation based on the Chronic Kidney Disease Epidemiology Collaboration (CKD-EPI) equation refit without adjustment for race Performed By: #### L AB15 ####Tempering Kiln Tender: TRACI LIZARRAGA ([id number])[facility] ([facility] [place] [address] [place] Glucose [Mass/Vol] 148 mg/dL High 82-115 [facility] Comment on above: Performed By: #### L AB15 ####Tempering Kiln Tender: TRACI LIZARRAGA ([phone])[facility] ([facility])[address] [place] [address] [place] Potassium [Moles/Vol] 3.7 mmol/L Normal 3.5-5.1 [facility] Comment on above: Result Comment: [facility] potassium values may be up to 0.5 mmol/L lower than serum values. Performed By: #### L AB15 ####Tempering Kiln Tender: TRACI LIZARRAGA ([id number])[facility] ([facility])[address] [place] [address] Sodium [Moles/Vol] 141 mmol/L Normal 136-145 [facility] Comment on above: Performed By: #### L AB15 ####Tempering Kiln Tender: TRACI LIZARRAGA ([id number])[facility] ([facility])[address] [place] [address] Urea nitrogen [Mass/Vol] 39 mg/dL High 9-23 [facility] Comment on above: Performed By: #### L AB15 ####Tempering Kiln Tender: TRACI LIZARRAGA ([phone])[facility] ([facility])[address] [place] [address] Anion gap [Moles/Vol] 13 mmol/L Normal 3-[address] [facility] Comment on above: Performed By: #### L AB15, [id number] ####Tempering Kiln Tender: TRACI LIZARRAGA ([id number])[facility] ([facility])[address] [place] [address] Calcium [Mass/Vol] 9.5 mg/dL Normal 8.8-10.0 [facility] Comment on above: Performed By: #### L AB15, [id number] ####Tempering Kiln Tender: TRACI LIZARRAGA ([phone])[facility] ([facility])[address] [place] [address] [place] Chloride [Moles/Vol] 95 mmol/L Low 98-107 [facility] Comment on above: Performed By: #### L AB15, [id number] ####Tempering Kiln Tender: TRACI LIZARRAGA ([id number])[facility] ([facility])[address] [place] [address] [place] CO2 [Moles/Vol] 34 mmol/L High 23-31 [facility] Comment on above: Performed By: #### L AB15, [id number] ####Tempering Kiln Tender: TRACI LIZARRAGA ([id number])[facility] ([facility] [place] [address] Creatinine [Mass/Vol] 1.20 mg/dL Normal 0.72-1.25 [facility] Comment on above: Performed By: #### L AB15, [id number] ####Tempering Kiln Tender: TRACI LIZARRAGA ([id number])[facility] [place] [address] [place] GLOMERULAR FILTRATION RATE ML/MIN/1.73 SQ M.PREDICTED 67.1 mL/min/1.73m*2 Normal >60.0 [facility] Comment on above: Result Comment: Calc ulation based on the Chronic Kidney Disease Epidemiology Collaboration (CKD-EPI) equation refit without adjustment for race Performed By: #### L AB15, [id number] ####Tempering Kiln Tender: TRACI LIZARRAGA ([id number])[facility] ([facility])[address] [place] [address] [place] Glucose [Mass/Vol] 103 mg/dL Normal 82-115 [facility] Comment on above: Performed By: #### L AB15, [id number] ####Tempering Kiln Tender: TRACI LIZARRAGA ([id number])[facility] ([facility])[address] [place] [address] [place] Potassium [Moles/Vol] 3.6 mmol/L Normal 3.5-5.1 [facility] Comment on above: Result Comment: [facility] potassium values may be up to 0.5 mmol/L lower than serum values. Performed By: #### L AB15, [id number] ####Tempering Kiln Tender: TRACI LIZARRAGA ([id number])[facility] ([facility] [place] [address] [place] Sodium [Moles/Vol] 142 mmol/L Normal 136-145 [facility] Comment on above: Performed By: #### L AB15, [id number] ####Tempering Kiln Tender: TRACI LIZARRAGA ([id number])[facility] ([facility] [place] [address] [place] Urea nitrogen [Mass/Vol] 39 mg/dL High 9-23 [facility] Comment on above: Performed By: #### L AB15, [id number] ####Tempering Kiln Tender: TRACI LIZARRAGA ([id number])[facility] ([facility])[address] [place] [address] Basic metabolic 1998 panelon 08-13-2024 Anion gap [Moles/Vol] 14 mmol/L High 3 - 13 mmol/L [facility] Calcium [Mass/Vol] 9.6 mg/dL 8.8 - 10. 0 mg/dL [facility] Chloride [Moles/Vol] 94 mmol/L Low 98 - 10 7 mmol/L [facility] CO2 [Moles/Vol] 33 mmol/L High 23 - 31 mmol/L [facility] Creatinine [Mass/Vol] 1.32 mg/dL High 0.72 - 1.25 mg/dL [facility] GFR/1.73 sq M.predicted (S/P/Bld) [Vol rate/Area] 59.9 mL/min Low - PINF [facility] Glucose [Mass/Vol] 148 mg/dL High 82 - 115 mg/dL [facility] Interpretation and review of laboratory results Abnormal [facility] Potassium [Moles/Vol] 3.7 mmol/L 3.5 - 5.1 mmol/L [facility] Sodium [Moles/Vol] 141 mmol/L 136 - 145 mmol/L [facility] Urea nitrogen [Mass/Vol] 39 mg/dL High 9 - 23 mg/dL [facility] Anion gap [Moles/Vol] 13 mmol/L 3 - 13 mmol/L [facility] Calcium [Mass/Vol] 9.5 mg/dL 8.8 - 10. 0 mg/dL [facility] Chloride [Moles/Vol] 95 mmol/L Low 98 - 10 7 mmol/L [facility] CO2 [Moles/Vol] 34 mmol/L High 23 - 31 mmol/L [facility] Creatinine [Mass/Vol] 1.2 mg/dL 0.72 - 1.25 mg/dL [facility] GFR/1.73 sq M.predicted (S/P/Bld) [Vol rate/Area] 67.1 mL/min - PINF [facility] Glucose [Mass/Vol] 103 mg/dL 82 - 115 mg/dL [facility] Interpretation and review of laboratory results Abnormal [facility] Potassium [Moles/Vol] 3.6 mmol/L 3.5 - 5.1 mmol/L [facility] Sodium [Moles/Vol] 142 mmol/L 136 - 145 mmol/L [facility] Urea nitrogen [Mass/Vol] 39 mg/dL High 9 - 23 mg/dL [facility] CBC (HEMOGRAM)on 08-13-2024 Erythrocyte distribution width (RBC) [Ratio] 14.7 % Normal 11.5-15.0 [facility] Comment on above: Performed By: #### L [id number] ####Tempering Kiln Tender: TRACI LIZARRAGA ([phone])[facility])[address] [place] [address] Hematocrit (Bld) [Volume fraction] 35.4 % Low 40.0-52.0 [facility] Comment on above: Performed By: #### L AB294 ####Tempering Kiln Tender: TRACI LIZARRAGA ([id number])[facility])[address] [place] [address] Hemoglobin (Bld) [Mass/Vol] 11.2 g/dL Low 13.0-18.0 [facility] Comment on above: Performed By: #### L AB294 ####Tempering Kiln Tender: TRACI LIZARRAGA ([id number])[facility])[address] [place] [address] MCH (RBC) [Entitic mass] 28.7 pg Normal 26.0-34.0 [facility] Comment on above: Performed By: #### L AB294 ####Tempering Kiln Tender: TRACI LIZARRAGA ([id number])[facility])[address] [place] [address] MCHC 31.6 % Normal 30.5-36.0 [facility] Comment on above: Performed By: #### L AB294 ####Tempering Kiln Tender: TRACI LIZARRAGA ([id number])[facility])[address] [place] [address] MCV (RBC) [Entitic vol] 90.8 fL Normal 77.0-99.0 [facility] Comment on above: Performed By: #### L AB294 ####Tempering Kiln Tender: TRACI LIZARRAGA ([id number])[facility] ([facility])[address] [place] [address] Platelet mean volume (Bld) [Entitic vol] 9.6 fL Normal 9.0-12.7 [facility] Comment on above: Performed By: #### L AB294 ####Tempering Kiln Tender: TRACI LIZARRAGA ([id number])[facility] ([facility])[address] [place] [address] Platelets (Bld) [#/Vol] 219 10*3/uL Normal 140-440 [facility] Comment on above: Performed By: #### L AB294 ####Tempering Kiln Tender: TRACI LIZARRAGA ([id number])[facility] ([facility])[address] [place] [address] RBC (Bld) [#/Vol] 3.90 10*6/uL Low 4.40-5.90 [facility] Comment on above: Performed By: #### L AB294 ####Tempering Kiln Tender: TRACI LIZARRAGA ([id number])[facility] ([facility])[address] [place] [address] WBC (Bld) [#/Vol] 13.3 10*3/uL High 3.6-10.7 [facility] Comment on above: Performed By: #### L AB294 ####Tempering Kiln Tender: TRACI LIZARRAGA ([id number])[facility] ([facility])[address] [place] [address] CBC panel Auto (Bld)on 08-13 Erythrocyte distribution width (RBC) [Ratio] 14.7 % 11.5 - 15.0 % [facility] Hematocrit (Bld) [Volume fraction] 35.4 % Low 40.0 - 52.0 % [facility] Hemoglobin (Bld) [Mass/Vol] 11.2 g/dL Low 13.0 - 18.0 g/dL [facility] Interpretation and review of laboratory results Abnormal [facility] MCH (RBC) [Entitic mass] 28.7 pg 26. 0 - 34.0 pg [facility] MCHC (RBC) [Mass/Vol] 31.6 % 30.5 - 36.0 % [facility] MCV (RBC) [Entitic vol] 90.8 fL 77.0 - 99.0 fL [facility] Platelet mean volume (Bld) [Entitic vol] 9.6 fL 9.0 - 12.7 fL [facility] Platelets (Bld) [#/Vol] 219 10*3/uL 140 - 440 10*3/uL [facility] RBC (Bld) [#/Vol] 3.9 10*6/uL Low 4.40 - 5.9 0 10*6/uL [facility] WBC (Bld) [#/Vol] 13.3 10*3/uL High 3.6 - 10.7 10*3/uL [facility] Laboratory - Chemistry and C hemistry - challengeon 08-13-2024 Glucose [Mass/Vol] 100 mg/dL 70 - 100 mg/dL [facility] Glucose [Mass/Vol] 127 mg/dL High 70 - 100 mg/dL [facility] Glucose [Mass/Vol] 121 mg/dL High 70 - 100 mg/dL [facility] Glucose [Mass/Vol] 126 mg/dL High 70 - 100 mg/dL [facility] Magnesium [Mass/Vol] 2 mg/dL 1.6 - 2 .6 mg/dL [facility] MAGNESIUMon 08-13-2024 Magnesium [Mass/Vol] 2.0 mg/dL Normal 1.6-2.6 [facility] Comment on above: Result Comment: MELINDA Torres COMMENTS:Higher values can be expected in females during menses. Performed By: #### L AB15, [id number] ####Tempering Kiln Tender: TRACI LIZARRAGA ([id number])[facility] ([facility] Magnesium [Mass/Vol]on 08-13 Interpretation and review of laboratory results Normal [facility] No Panel Informationon 08-13 Interpretation and review of laboratory results Normal [facility] Interpretation and review of laboratory results Abnormal [facility] Interpretation and review of laboratory results Abnormal [facility] Interpretation and review of laboratory results Abnormal [facility] Progress Noteon 08-13-2024 Progress Note Normal [facility] Progress Note Normal [facility] Progress Note Normal [facility] XR CHEST 1 VIEWon 08-13-2024 XR CHEST 1 VIEW Normal [facility] XR Chest Single viewon 08-13 [facility] RADIOLOGY [facility] RADIOLOGY [facility] Radiology Study observation (narrative) [facility] XR Chest Single viewOrdered By: Mundo Christie on 08-13-2024 [facility] Work Phone: [phone] 08-12-2024 [id number] Continues on high flow 02. Pt is agreeable to got to [facility] to assist with weaning of 02. Does not need an auth.. Normal [facility] BASIC METABOLIC PANELon 07-28 Anion gap [Moles/Vol] 11 mmol/L Normal 3-13 [facility] Comment on above: Performed By: #### L AB15 ####Tempering Kiln Tender: TRACI LIZARRAGA ([id number])[address] Calcium [Mass/Vol] 9.5 mg/dL Normal 8.8-10.0 [facility] Comment on above: Performed By: #### L AB15 ####Tempering Kiln Tender: TRACI LIZARRAGA ([id number])[facility])[address] [place] [address] Chloride [Moles/Vol] 96 mmol/L Low 98-107 [facility] Comment on above: Performed By: #### L AB15 ####Tempering Kiln Tender: TRACI LIZARRAGA ([id number])[facility])[address] [place] [address] CO2 [Moles/Vol] 36 mmol/L High 23-31 [facility] Comment on above: Performed By: #### L AB15 ####Tempering Kiln Tender: TRACI [id number])[facility] ([facility])[address] [place] [address] [place] Creatinine [Mass/Vol] 1.43 mg/dL High 0.72-1.25 [facility] Comment on above: Performed By: #### L AB15 ####Tempering Kiln Tender: TRACI LIZARRAGA ([id number])[facility])[address] [place] [address] [place] GLOMERULAR FILTRATION RATE ML/MIN/1.73 SQ M.PREDICTED 54.4 mL/min/1.73m*2 Low >60.0 [facility] Comment on above: Result Comment: Calc ulation based on the Chronic Kidney Disease Epidemiology Collaboration (CKD-EPI) equation refit without adjustment for race Performed By: #### L AB15 ####Tempering Kiln Tender: TRACI LIZARRAGA ([id number])[facility])[address] [place] [address] [place] Glucose [Mass/Vol] 123 mg/dL High 82-115 [facility] Comment on above: Performed By: #### L AB15 ####Tempering Kiln Tender: TRACI LIZARRAGA ([id number])[facility])[address] [place] [address] [place] Potassium [Moles/Vol] 3.6 mmol/L Normal 3.5-5.1 [facility] Comment on above: Result Comment: [facility] potassium values may be up to 0.5 mmol/L lower than serum values. Performed By: #### L AB15 ####Tempering Kiln Tender: TRACI LIZARRAGA ([id number])[facility] ([facility])[address] [place] [address] [place] Sodium [Moles/Vol] 143 mmol/L Normal 136-145 [facility] Comment on above: Performed By: #### L AB15 ####Tempering Kiln Tender: TRACI LIZARRAGA ([id number])[facility])[address] [place] [address] [place] Urea nitrogen [Mass/Vol] 41 mg/dL High 9-23 [facility] Comment on above: Performed By: #### L AB15 ####Tempering Kiln Tender: TRACI [id number])[facility] ([facility])[address] [place] [address] Basic metabolic 1998 panelon 08-12-2024 Anion gap [Moles/Vol] 11 mmol/L 3 - 13 mmol/L [facility] Calcium [Mass/Vol] 9.5 mg/dL 8.8 - 10. 0 mg/dL [facility] Chloride [Moles/Vol] 96 mmol/L Low 98 - 10 7 mmol/L [facility] CO2 [Moles/Vol] 36 mmol/L High 23 - 31 mmol/L [facility] Creatinine [Mass/Vol] 1.43 mg/dL High 0.72 - 1.25 mg/dL [facility] GFR/1.73 sq M.predicted (S/P/Bld) [Vol rate/Area] 54.4 mL/min Low - PINF [facility] Glucose [Mass/Vol] 123 mg/dL High 82 - 115 mg/dL [facility] Interpretation and review of laboratory results Abnormal [facility] Potassium [Moles/Vol] 3.6 mmol/L 3.5 - 5.1 mmol/L [facility] Sodium [Moles/Vol] 143 mmol/L 136 - 145 mmol/L [facility] Urea nitrogen [Mass/Vol] 41 mg/dL High 9 - 23 mg/dL [facility] CBC (HEMOGRAM)on 08-12-2024 Erythrocyte distribution width (RBC) [Ratio] 14.6 % Normal 11.5-15.0 [facility] Comment on above: Performed By: #### L [id number] ####Tempering Kiln Tender: TRACI LIZARRAGA ([id number])[facility] ([facility])[address] [place] [address] Hematocrit (Bld) [Volume fraction] 34.6 % Low 40.0-52.0 [facility] Comment on above: Performed By: #### L AB294 ####Tempering Kiln Tender: TRACI LIZARRAGA ([id number])[facility] ([facility])[address] [place] [address] Hemoglobin (Bld) [Mass/Vol] 11.0 g/dL Low 13.0-18.0 [facility] Comment on above: Performed By: #### L AB294 ####Tempering Kiln Tender: TRACI LIZARRAGA ([id number])[facility] ([facility])[address] [place] [address] MCH (RBC) [Entitic mass] 29.3 pg Normal 26.0-34.0 [facility] Comment on above: Performed By: #### L AB294 ####Tempering Kiln Tender: TRACI LIZARRAGA ([id number])[facility])[address] [place] [address] MCHC 31.8 % Normal 30.5-36.0 [facility] Comment on above: Performed By: #### L AB294 ####Tempering Kiln Tender: TRACI LIZARRAGA ([id number])[facility])[address] [place] [address] MCV (RBC) [Entitic vol] 92.0 fL Normal 77.0-99.0 [facility] Comment on above: Performed By: #### L AB294 ####Tempering Kiln Tender: TRACI LIZARRAGA ([id number])[facility] ([facility])[address] [place] [address] Platelet mean volume (Bld) [Entitic vol] 9.5 fL Normal 9.0-12.7 [facility] Comment on above: Performed By: #### L [id number] ####Tempering Kiln Tender: TRACI LIZARRAGA ([id number])[facility])[address] [place] [address] Platelets (Bld) [#/Vol] 224 10*3/uL Normal 140-440 [facility] Comment on above: Performed By: #### L AB294 ####Tempering Kiln Tender: TRACI LIZARRAGA ([id number])[facility])[address] [place] [address] RBC (Bld) [#/Vol] 3.76 10*6/uL Low 4.40-5.90 [facility] Comment on above: Performed By: #### L AB294 ####Tempering Kiln Tender: TRACI LIZARRAGA ([id number])[facility] ([facility])[address] [place] [address] WBC (Bld) [#/Vol] 12.5 10*3/uL High 3.6-10.7 [facility] Comment on above: Performed By: #### L AB294 ####Tempering Kiln Tender: TRACI LIZARRAGA ([id number])[facility] ([facility])[address] [place] [address] CBC panel Auto (Bld)on 08-12 Erythrocyte distribution width (RBC) [Ratio] 14.6 % 11.5 - 15.0 % [facility] Hematocrit (Bld) [Volume fraction] 34.6 % Low 40.0 - 52.0 % [facility] Hemoglobin (Bld) [Mass/Vol] 11 g/dL Low 13.0 - 18.0 g/dL [facility] Interpretation and review of laboratory results Abnormal [facility] MCH (RBC) [Entitic mass] 29.3 pg 26. 0 - 34.0 pg [facility] MCHC (RBC) [Mass/Vol] 31.8 % 30.5 - 36.0 % [facility] MCV (RBC) [Entitic vol] 92 fL 77.0 - 99.0 fL [facility] Platelet mean volume (Bld) [Entitic vol] 9.5 fL 9.0 - 12.7 fL [facility] Platelets (Bld) [#/Vol] 224 10*3/uL 140 - 440 10*3/uL [facility] RBC (Bld) [#/Vol] 3.76 10*6/uL Low 4.40 - 5.9 0 10*6/uL [facility] WBC (Bld) [#/Vol] 12.5 10*3/uL High 3.6 - 10.7 10*3/uL [facility] - Chemistry and C hemistry - challengeon 08-12-2024 Glucose [Mass/Vol] 100 mg/dL 70 - 100 mg/dL [facility] Glucose [Mass/Vol] 121 mg/dL High 70 - 100 mg/dL [facility] Glucose [Mass/Vol] 109 mg/dL High 70 - 100 mg/dL [facility] Glucose [Mass/Vol] 147 mg/dL High 70 - 100 mg/dL [facility] Magnesium [Mass/Vol] 2.1 mg/dL 1.6 - 2 .6 mg/dL [facility] MAGNESIUMon 08-12-2024 Magnesium [Mass/Vol] 2.1 mg/dL Normal 1.6-2.6 [facility] Comment on above: Result Comment: MELINDA R COMMENTS:Higher values can be expected in females during menses. Performed By: #### L AB103 ####Tempering Kiln Tender: TRACI LIZARRAGA ([id number])[facility] ([facility] Magnesium [Mass/Vol]on 08-12 Interpretation and review of laboratory results Normal [facility] No Panel Informationon 08-12 Interpretation and review of laboratory results Normal [facility] Interpretation and review of laboratory results Abnormal [facility] Interpretation and review of laboratory results Abnormal [facility] Interpretation and review of laboratory results Abnormal [facility] No Panel InformationOrdered By: Bienvenido Rodriguez on 08-12-2024 [facility] Work Phone: Progress Noteon 08-12-2024 Progress Note Normal [facility] Progress Note Normal [facility] Progress Note Normal [facility] XR CHEST 1 VIEWon 08-12-2024 XR CHEST 1 VIEW Normal [facility] XR CHEST 1 VIEW Normal [facility] XR Chest Single viewon 08-12 [facility] RADIOLOGY [facility] Radiology Study observation (narrative) [facility] Rad[facility] (narrative[facility] [id number] 08-11-2024 [id number] Spoke with pt with [facility]. Pt is agreeable to go to [facility]..Electronical ly signed by Joanne Brown RN on 08/11/2024 at 12:19 PM Normal [facility] BASIC METABOLIC PANELon 07-28 Anion gap [Moles/Vol] 10 mmol/L Normal 3-13 [facility] Comment on above: Performed By: #### L AB15 ####Tempering Kiln Tender: TRACI LIZARRAGA ([id number])[facility] [place] [address] Calcium [Mass/Vol] 9.6 mg/dL Normal 8.8-10.0 [facility] Comment on above: Performed By: #### L AB15 ####Tempering Kiln Tender: TRACI LIZARRAGA ([id number])[facility] ([facility] [place] [address] Chloride [Moles/Vol] 96 mmol/L Low 98-107 [facility] Comment on above: Performed By: #### L AB15 ####Tempering Kiln Tender: TRACI LIZARRAGA ([id number])[facility] ([facility] [place] [address] CO2 [Moles/Vol] 35 mmol/L High 23-31 [facility] Comment on above: Performed By: #### L AB15 ####Tempering Kiln Tender: TRACI LIZARRAGA ([id number])[facility] ([facility] [place] [address] Creatinine [Mass/Vol] 1.27 mg/dL High 0.72-1.25 [facility] Comment on above: Performed By: #### L AB15 ####Tempering Kiln Tender: TRACI LIZARRAGA ([id number])[facility] ([facility])[address] [place] [address] [place] GLOMERULAR FILTRATION RATE ML/MIN/1.73 SQ M.PREDICTED 62.7 mL/min/1.73m*2 Normal >60.0 [facility] Comment on above: Result Comment: Calc ulation based on the Chronic Kidney Disease Epidemiology Collaboration (CKD-EPI) equation refit without adjustment for race Performed By: #### L AB15 ####Tempering Kiln Tender: TRACI LIZARRAGA ([id number])[facility] ([facility] [place] [address] [place] Glucose [Mass/Vol] 180 mg/dL High 82-115 [facility] Comment on above: Performed By: #### L AB15 ####Tempering Kiln Tender: TRACI LIZARRAGA ([id number])[facility] ([facility] [place] [address] Potassium [Moles/Vol] 3.5 mmol/L Normal 3.5-5.1 [facility] Comment on above: Result Comment: [facility] potassium values may be up to 0.5 mmol/L lower than serum values. Performed By: #### L AB15 ####Tempering Kiln Tender: TRACI LIZARRAGA ([id number])[facility] [place] [address] Sodium [Moles/Vol] 141 mmol/L Normal 136-145 [facility] Comment on above: Performed By: #### L AB15 ####Tempering Kiln Tender: TRACI LIZARRAGA ([id number])[facility] ([facility])[address] [place] [address] Urea nitrogen [Mass/Vol] 48 mg/dL High 9-23 [facility] Comment on above: Performed By: #### L AB15 ####Tempering Kiln Tender: TRACI LIZARRAGA ([id number])[facility] [place] [address] Anion gap [Moles/Vol] 8 mmol/L Normal 3-13 [facility] Comment on above: Performed By: #### L AB15 ####Tempering Kiln Tender: TRACI LIZARRAGA ([id number])[facility] [place] [address] Calcium [Mass/Vol] 9.6 mg/dL Normal 8.8-10.0 [facility] Comment on above: Performed By: #### L AB15 ####Tempering Kiln Tender: TRACI LIZARRAGA ([id number])[facility] ([facility])[address] [place] [address] [place] Chloride [Moles/Vol] 94 mmol/L Low 98-107 [facility] Comment on above: Performed By: #### L AB15 ####Tempering Kiln Tender: TRACI LIZARRAGA ([phone])[facility] ([facility])[address] [place] [address] [place] CO2 [Moles/Vol] 39 mmol/L High 23-31 [facility] Comment on above: Performed By: #### L AB15 ####Tempering Kiln Tender: TRACI LIZARRAGA ([id number])[facility] ([facility])[address] [place] [address] Creatinine [Mass/Vol] 1.24 mg/dL Normal 0.72-1.25 [facility] Comment on above: Performed By: #### L AB15 ####Tempering Kiln Tender: TRACI LIZARRAGA ([id number])[facility] ([facility])[address] [place] [address] GLOMERULAR FILTRATION RATE ML/MIN/1.73 SQ M.PREDICTED 64.5 mL/min/1.73m*2 Normal >60.0 [facility] Comment on above: Result Comment: Calc ulation based on the Chronic Kidney Disease Epidemiology Collaboration (CKD-EPI) equation refit without adjustment for race Performed By: #### L AB15 ####Tempering Kiln Tender: TRACI LIZARRAGA ([id number])[facility] [place] [address] Glucose [Mass/Vol] 92 mg/dL Normal 82-115 [facility] Comment on above: Performed By: #### L AB15 ####Tempering Kiln Tender: TRACI LIZARRAGA ([phone])[facility])[address] [place] [address] Potassium [Moles/Vol] 3.6 mmol/L Normal 3.5-5.1 [facility] Comment on above: Result Comment: [facility] potassium values may be up to 0.5 mmol/L lower than serum values. Performed By: #### L AB15 ####Tempering Kiln Tender: TRACI LIZARRAGA ([id number])[facility])[address] [place] [address] Sodium [Moles/Vol] 141 mmol/L Normal 136-145 [facility] Comment on above: Performed By: #### L AB15 ####Tempering Kiln Tender: TRACI LIZARRAGA ([phone])[facility] ([facility])[address] [place] [address] Urea nitrogen [Mass/Vol] 52 mg/dL High 9-23 [facility] Comment on above: Performed By: #### L AB15 ####Tempering Kiln Tender: TRACI LIZARRAGA ([id number])[facility] [place] [address] Bacteria identified Aer cx N om (Lower resp)Ordered By: Renetta De on 08-11-2024 Gram Stain Result Few Polymorphonuclear leukocytes per low power field Abnormal [facility] Gram Stain Result Few Epithelial cells per low power field Abnormal [facility] Gram Stain Result Positive Abnormal [facility] Gram Stain Result Negative Abnormal [facility] Interpretation and review of laboratory results Abnormal [facility] Basic metabolic 1998 panelon 08-11-2024 Anion gap [Moles/Vol] 10 mmol/L 3 - 13 mmol/L [facility] Calcium [Mass/Vol] 9.6 mg/dL 8.8 - 10. 0 mg/dL [facility] Chloride [Moles/Vol] 96 mmol/L Low 98 - 10 7 mmol/L [facility] CO2 [Moles/Vol] 35 mmol/L High 23 - 31 mmol/L [facility] Creatinine [Mass/Vol] 1.27 mg/dL High 0.72 - 1.25 mg/dL [facility] GFR/1.73 sq M.predicted (S/P/Bld) [Vol rate/Area] 62.7 mL/min - PINF [facility] Glucose [Mass/Vol] 180 mg/dL High 82 - 115 mg/dL [facility] Interpretation and review of laboratory results Abnormal [facility] Potassium [Moles/Vol] 3.5 mmol/L 3.5 - 5.1 mmol/L [facility] Sodium [Moles/Vol] 141 mmol/L 136 - 145 mmol/L [facility] Urea nitrogen [Mass/Vol] 48 mg/dL High 9 - 23 mg/dL [facility] Anion gap [Moles/Vol] 8 mmol/L 3 - 13 mmol/L [facility] Calcium [Mass/Vol] 9.6 mg/dL 8.8 - 10. 0 mg/dL [facility] Chloride [Moles/Vol] 94 mmol/L Low 98 - 10 7 mmol/L [facility] CO2 [Moles/Vol] 39 mmol/L High 23 - 31 mmol/L [facility] Creatinine [Mass/Vol] 1.24 mg/dL 0.72 - 1.25 mg/dL [facility] GFR/1.73 sq M.predicted (S/P/Bld) [Vol rate/Area] 64.5 mL/min - PINF [facility] Glucose [Mass/Vol] 92 mg/dL 82 - 115 mg/dL [facility] Interpretation and review of laboratory results Abnormal [facility] Potassium [Moles/Vol] 3.6 mmol/L 3.5 - 5.1 mmol/L [facility] Sodium [Moles/Vol] 141 mmol/L 136 - 145 mmol/L [facility] Urea nitrogen [Mass/Vol] 52 mg/dL High 9 - 23 mg/dL [facility] CBC (HEMOGRAM)on 08-11-2024 Erythrocyte distribution width (RBC) [Ratio] 14.4 % Normal 11.5-15.0 [facility] Comment on above: Performed By: #### L [id number] ####Tempering Kiln Tender: TRACI LIZARRAGA ([id number])[address] Hematocrit (Bld) [Volume fraction] 32.7 % Low 40.0-52.0 [facility] Comment on above: Performed By: #### L [id number] ####Tempering Kiln Tender: TRACI LIZARRAGA ([id number])[address] Hemoglobin (Bld) [Mass/Vol] 10.6 g/dL Low 13.0-18.0 [facility] Comment on above: Performed By: #### L [id number] ####Tempering Kiln Tender: TRACI LIZARRAGA ([id number])[facility])[address] [place] [address] MCH (RBC) [Entitic mass] 29.3 pg Normal 26.0-34.0 [facility] Comment on above: Performed By: #### L [id number] ####Tempering Kiln Tender: TRACI [id number])[facility])[address] [place] [address] MCHC 32.4 % Normal 30.5-36.0 [facility] Comment on above: Performed By: #### L [id number] ####Tempering Kiln Tender: TRACI LIZARRAGA ([id number])[facility] ([facility])[address] [place] [address] MCV (RBC) [Entitic vol] 90.3 fL Normal 77.0-99.0 [facility] Comment on above: Performed By: #### L [id number] ####Tempering Kiln Tender: TRACI LIZARRAGA ([id number])[facility])[address] [place] [address] Platelet mean volume (Bld) [Entitic vol] 9.6 fL Normal 9.0-12.7 [facility] Comment on above: Performed By: #### L [id number] ####Tempering Kiln Tender: TRACI LIZARRAGA ([id number])[facility] ([facility])[address] [place] [address] Platelets (Bld) [#/Vol] 248 10*3/uL Normal 140-440 [facility] Comment on above: Performed By: #### L [id number] ####Tempering Kiln Tender: TRACI LIZARRAGA ([id number])[facility] ([facility])[address] [place] [address] RBC (Bld) [#/Vol] 3.62 10*6/uL Low 4.40-5.90 [facility] Comment on above: Performed By: #### L [id number] ####Tempering Kiln Tender: TRACI LIZARRAGA ([id number])[facility] ([facility])[address] [place] [address] WBC (Bld) [#/Vol] 12.5 10*3/uL High 3.6-10.7 [facility] Comment on above: Performed By: #### L [id number] ####Tempering Kiln Tender: TRACI LIZARRAGA ([id number])[facility] ([facility])[address] [place] [address] CBC panel Auto (Bld)on 08-11 Erythrocyte distribution width (RBC) [Ratio] 14.4 % 11.5 - 15.0 % [facility] Hematocrit (Bld) [Volume fraction] 32.7 % Low 40.0 - 52.0 % [facility] Hemoglobin (Bld) [Mass/Vol] 10.6 g/dL Low 13.0 - 18.0 g/dL [facility] Interpretation and review of laboratory results Abnormal [facility] MCH (RBC) [Entitic mass] 29.3 pg 26. 0 - 34.0 pg [facility] MCHC (RBC) [Mass/Vol] 32.4 % 30.5 - 36.0 % [facility] MCV (RBC) [Entitic vol] 90.3 fL 77.0 - 99.0 fL [facility] Platelet mean volume (Bld) [Entitic vol] 9.6 fL 9.0 - 12.7 fL [facility] Platelets (Bld) [#/Vol] 248 10*3/uL 140 - 440 10*3/uL [facility] RBC (Bld) [#/Vol] 3.62 10*6/uL Low 4.40 - 5.9 0 10*6/uL [facility] WBC (Bld) [#/Vol] 12.5 10*3/uL High 3.6 - 10.7 10*3/uL [facility] ECG 12-LEADon 08-11-2024 ECG 12-LEAD IMPRESSION: Atrial fibrillation Right bundle branch block ST depr, consider ischemia, maybe rate related Electronically Signed On 08-11-2024 09:01:36 EDT by Tyrell Everloop [facility] ECG 12-LEAD IMPRESSION: Atrial fibrillation Right bundle branch block Electronically Signed On 08-11-2024 08:55:24 EDT by [employer] [facility] Laboratory - Chemistry and C hemistry - challengeon 08-11-2024 Glucose [Mass/Vol] 96 mg/dL 70 - 100 mg/dL [facility] Glucose [Mass/Vol] 119 mg/dL High 70 - 100 mg/dL [facility] Glucose [Mass/Vol] 218 mg/dL High 70 - 100 mg/dL [facility] Magnesium [Mass/Vol] 2.2 mg/dL 1.6 - 2 .6 mg/dL [facility] Potassium [Moles/Vol] 3.3 mmol/L Low 3.5 - 5.1 mmol/L [facility] - Microbiology an d Antimicrobial susceptibilityOrdered By: Renetta De on 08-11-2024 Bacteria identified Aer cx Nom (Lower resp) Moderate respiratory fabian present. [facility] MAGNESIUMon 08-11-2024 Magnesium [Mass/Vol] 2.2 mg/dL Normal 1.6-2.6 [facility] Comment on above: Result Comment: MELINDA R COMMENTS:Higher values can be expected in females during menses. Performed By: #### L AB114, [id number] ####Tempering Kiln Tender: TRACI LIZARRAGA ([id number])[address] Magnesium [Mass/Vol]on 08-11 Interpretation and review of laboratory results Normal [facility] No Panel Informationon 08-11 Interpretation and review of laboratory results Normal [facility] Interpretation and review of laboratory results Abnormal [facility] P [place] 0 degrees [facility] MT Interval 0 ms [facility] QRS [place] 69 degrees [facility] QRSD Interval 167 ms [facility] QT Interval 417 ms [facility] QTC Interval 576 ms [facility] T Wave [place] -19 degrees [facility] CV [facility]HCarolin[facility] Interpretation and review of laboratory results Abnormal [facility] No Panel InformationOrdered By: Tyrell Summers on 08-11-2024 P [place] 172 degrees [facility] Work Phone: MT Interval 100 ms [facility] Work Phone: QRS [place] 84 degrees [facility] Work Phone: QRSD Interval 161 ms [facility] h Work Phone: QT Interval 381 ms [facility] [employer] Work Phone: QTC Interval 564 ms [facility] Work Phone: T Wave [place] -12 degrees [facility] [employer] Work Phone: [facility] [employer] Work Phone: POTASSIUMon 08-11-2024 Potassium [Moles/Vol] 3.3 mmol/L Low 3.5-5.1 [facility] Comment on above: Order Comment: PRN p ost potassium replacement Result Comment: [facility] potassium values may be up to 0.5 mmol/L lower than serum values. Performed By: #### L AB114, [id number] ####Tempering Kiln Tender: TRACI LIZARRAGA ([id number])[facility])[address] [place] [address] Potassium [Moles/Vol]on 07-28 Interpretation and review of laboratory results Abnormal [facility] Progress Noteon 08-11-2024 Progress Note Refusing to wear NIV overnight tonight. Resting on HHFNC 75% 55L. Sats 95% Normal [facility] Progress Note Normal [facility] Progress [facility] Normal [facility] Progress Note Normal [facility] Progress Note Normal [facility] Vital signsOrdered By: Anne Summers on 08-11-2024 Heart rate 132 /min bpm [facility] [employer] Phone: Vital signson 08-11-2024 Heart rate 114 /min bpm [facility] [employer] XR CHEST 1 VIEWon 08-11-2024 XR CHEST 1 VIEW Normal [facility] XR Chest Single viewon 08-11 [facility] Radiology Study observation (narrative) [facility] XR Chest Single viewOrdered By: Rashi Soriano on 08-11-2024 [facility] [employer] Phone: BASIC METABOLIC PANELon 07-28 Anion gap [Moles/Vol] 13 mmol/L Normal 3-13 [facility] Comment on above: Performed By: #### L AB15 ####Tempering Kiln Tender: TRACI LIZARRAGA ([id number])[facility] ([facility])[address] [place] [address] Calcium [Mass/Vol] 9.7 mg/dL Normal 8.8-10.0 [facility] Comment on above: Performed By: #### L AB15 ####Tempering Kiln Tender: TRACI LIZARRAGA ([id number])[facility] ([facility])[address] [place] [address] Chloride [Moles/Vol] 95 mmol/L Low 98-107 [facility] Comment on above: Performed By: #### L AB15 ####Tempering Kiln Tender: TRACI LIZARRAGA ([id number])[facility])[address] [place] [address] CO2 [Moles/Vol] 35 mmol/L High 23-31 [facility] Comment on above: Performed By: #### L AB15 ####Tempering Kiln Tender: TRACI LIZARRAGA ([id number])[facility])[address] [place] [address] Creatinine [Mass/Vol] 1.52 mg/dL High 0.72-1.25 [facility] Comment on above: Performed By: #### L AB15 ####Tempering Kiln Tender: TRACI LIZARRAGA ([id number])[facility])[address] [place] [address] GLOMERULAR FILTRATION RATE ML/MIN/1.73 SQ M.PREDICTED 50.5 mL/min/1.73m*2 Low >60.0 [facility] Comment on above: Result Comment: Calc ulation based on the Chronic Kidney Disease Epidemiology Collaboration (CKD-EPI) equation refit without adjustment for race Performed By: #### L AB15 ####Tempering Kiln Tender: TRACI LIZARRAGA ([id number])[facility])[address] [place] [address] Glucose [Mass/Vol] 169 mg/dL High 82-115 [facility] Comment on above: Performed By: #### L AB15 ####Tempering Kiln Tender: TRACI LIZARRAGA ([id number])[facility])[address] [place] [address] Potassium [Moles/Vol] 3.4 mmol/L Low 3.5-5.1 [facility] Comment on above: Result Comment: [facility] potassium values may be up to 0.5 mmol/L lower than serum values. Performed By: #### L AB15 ####Tempering Kiln Tender: TRACI LIZARRAGA ([id number])[facility] ([facility])[address] [place] [address] Sodium [Moles/Vol] 143 mmol/L Normal 136-145 [facility] Comment on above: Performed By: #### L AB15 ####Tempering Kiln Tender: TRACI LIZARRAGA ([id number])[facility] ([facility])[address] [place] [address] Urea nitrogen [Mass/Vol] 63 mg/dL High 9-23 [facility] Comment on above: Performed By: #### L AB15 ####Tempering Kiln Tender: TRACI LIZARRAGA ([id number])[facility] ([facility])[address] [place] [address] Anion gap [Moles/Vol] 14 mmol/L High 3-[address] [facility] Comment on above: Performed By: #### L AB103, LAB15 ####Tempering Kiln Tender: TRACI LIZARRAGA ([id number])[facility] [place] [address] Calcium [Mass/Vol] 9.2 mg/dL Normal 8.8-10.0 [facility] Comment on above: Performed By: #### L AB103, LAB15 ####Tempering Kiln Tender: TRACI LIZARRAGA ([id number])[facility] [place] [address] [place] Chloride [Moles/Vol] 95 mmol/L Low 98-107 [facility] Comment on above: Performed By: #### L AB103, LAB15 ####Tempering Kiln Tender: TRACI LIZARRAGA ([id number])[facility] [place] [address] [place] CO2 [Moles/Vol] 32 mmol/L High 23-31 [facility] Comment on above: Performed By: #### L AB103, LAB15 ####Tempering Kiln Tender: TRACI LIZARRAGA ([id number])[facility] ([facility])[address] [place] [address] [place] Creatinine [Mass/Vol] 1.62 mg/dL High 0.72-1.25 [facility] Comment on above: Performed By: #### L 103, LAB15 ####Tempering Kiln Tender: TRACI LIZARRAGA ([id number])[facility])[address] [place] [address] [place] GLOMERULAR FILTRATION RATE ML/MIN/1.73 SQ M.PREDICTED 46.8 mL/min/1.73m*2 Low >60.0 [facility] Comment on above: Result Comment: Calc ulation based on the Chronic Kidney Disease Epidemiology Collaboration (CKD-EPI) equation refit without adjustment for race Performed By: #### L KAYLYN, LAB15 ####Tempering Kiln Tender: TRACI LIZARRAGA ([id number])[facility])[address] [place] [address] Glucose [Mass/Vol] 131 mg/dL High 82-115 [facility] Comment on above: Performed By: #### Sindy PATIÑO, LAB15 ####Tempering Kiln Tender: TRACI LIZARRAGA ([id number])[facility])[address] [place] [address] Potassium [Moles/Vol] 3.7 mmol/L Normal 3.5-5.1 [facility] Comment on above: Result Comment: [facility] potassium values may be up to 0.5 mmol/L lower than serum values. Performed By: #### L KAYLYN, LAB15 ####Tempering Kiln Tender: TRACI LIZARRAGA ([id number])[facility])[address] [place] [address] [place] Sodium [Moles/Vol] 141 mmol/L Normal 136-145 [facility] Comment on above: Performed By: #### L AB103, LAB15 ####Tempering Kiln Tender: TRACI LIZARRAGA ([id number])[facility])[address] [place] [address] Urea nitrogen [Mass/Vol] 72 mg/dL High 9-23 [facility] Comment on above: Performed By: #### L AB103, LAB15 ####Tempering Kiln Tender: TRACI [id number])[facility] [place] [address] BLOOD GAS, VENOUSon 08-11-19 25 AMOUNT OF OXYGEN Normal [facility] Comment on above: Result Comment: MELINDA Torres COMMENTS:Assessment of oxygenation is best done with an arterial blood gas determination. Reference ranges for pO2, bicarbonate, and base excess are for mixed venous blood. Specimens drawn from a peripheral vein will often have higher values. Performed By: #### L AB79 ####Tempering Kiln Tender: TRACI LIZARRAGA ([id number])[facility] [place] [address] Base excess Calc (BldV) [Moles/Vol] 11.4 mmol/L High -3.0-3.0 [facility] Comment on above: Performed By: #### L AB79 ####Tempering Kiln Tender: TRACI LIZARRAGA ([id number])[facility] ([facility])[address] [place] [address] CO2 [Moles/Vol] 41.9 mmol/L High 24.0-28.0 [facility] Comment on above: Performed By: #### L AB79 ####Tempering Kiln Tender: TRACI LIZARRAGA ([id number])[facility] ([facility])[address] [place] [address] HCO3 (Bld) [Moles/Vol] 39.7 mmol/L High 23.0-27.0 [facility] Comment on above: Performed By: #### L AB79 ####Tempering Kiln Tender: TRACI LIZARRAGA ([id number])[facility] ([facility])[address] [place] [address] Hemoglobin (Bld) [Mass/Vol] 11.5 g/dL Normal Screen only [facility] Comment on above: Performed By: #### L AB79 ####Tempering Kiln Tender: TRACI LIZARRAGA ([id number])[facility])[address] [place] [address] OXYGEN (MM HG) IN VENOUS BLOOD 47.1 mm Hg Normal [facility] Comment on above: Performed By: #### L AB79 ####Tempering Kiln Tender: TRACI LIZARRAGA ([id number])[facility])[address] [place] [address] OXYGEN SATURATION (%) IN VENOUS BLOOD 76.2 % Normal [facility] Comment on above: Performed By: #### L AB79 ####Tempering Kiln Tender: TRACI LIZARRAGA ([id number])[facility])[address] [place] [address] PCO2, AMITA 74.0 mm Hg High 40.0-55.0 [facility] Comment on above: Performed By: #### L AB79 ####Tempering Kiln Tender: TRACI LIZARRAGA ([id number])[facility])[address] [place] [address] PH VENOUS 7.347 Normal 7.330-7.430 [facility] Comment on above: Performed By: #### L AB79 ####Tempering Kiln Tender: TRACI LIZARRAGA ([id number])[facility] ([facility])[address] [place] [address] SOURCE OF OXYGEN Non-Invasive Ventilator Normal [facility] Comment on above: Performed By: #### L AB79 ####Tempering Kiln Tender: TRACI LIZARRAGA ([id number])[facility])[address] [place] [address] Basic metabolic 1998 panelon 08-10-2024 Anion gap [Moles/Vol] 13 mmol/L 3 - 13 mmol/L [facility] Calcium [Mass/Vol] 9.7 mg/dL 8.8 - 10. 0 mg/dL [facility] Chloride [Moles/Vol] 95 mmol/L Low 98 - 10 7 mmol/L [facility] CO2 [Moles/Vol] 35 mmol/L High 23 - 31 mmol/L [facility] Creatinine [Mass/Vol] 1.52 mg/dL High 0.72 - 1.25 mg/dL [facility] GFR/1.73 sq M.predicted (S/P/Bld) [Vol rate/Area] 50.5 mL/min Low - PINF [facility] Glucose [Mass/Vol] 169 mg/dL High 82 - 115 mg/dL [facility] Interpretation and review of laboratory results Abnormal [facility] Potassium [Moles/Vol] 3.4 mmol/L Low 3.5 - 5.1 mmol/L [facility] Sodium [Moles/Vol] 143 mmol/L 136 - 145 mmol/L [facility] Urea nitrogen [Mass/Vol] 63 mg/dL High 9 - 23 mg/dL [facility] Anion gap [Moles/Vol] 14 mmol/L High 3 - 13 mmol/L [facility] Calcium [Mass/Vol] 9.2 mg/dL 8.8 - 10. 0 mg/dL [facility] Chloride [Moles/Vol] 95 mmol/L Low 98 - 10 7 mmol/L [facility] CO2 [Moles/Vol] 32 mmol/L High 23 - 31 mmol/L [facility] Creatinine [Mass/Vol] 1.62 mg/dL High 0.72 - 1.25 mg/dL [facility] GFR/1.73 sq M.predicted (S/P/Bld) [Vol rate/Area] 46.8 mL/min Low - PINF [facility] Glucose [Mass/Vol] 131 mg/dL High 82 - 115 mg/dL [facility] Interpretation and review of laboratory results Abnormal [facility] Potassium [Moles/Vol] 3.7 mmol/L 3.5 - 5.1 mmol/L [facility] Sodium [Moles/Vol] 141 mmol/L 136 - 145 mmol/L [facility] Urea nitrogen [Mass/Vol] 72 mg/dL High 9 - 23 mg/dL [facility] CBC (HEMOGRAM)on 08-10-2024 Erythrocyte distribution width (RBC) [Ratio] 14.3 % Normal 11.5-15.0 [facility] Comment on above: Performed By: #### L [id number] ####Tempering Kiln Tender: TRACI LIZARRAGA ([id number])[address] Hematocrit (Bld) [Volume fraction] 32.6 % Low 40.0-52.0 [facility] Comment on above: Performed By: #### L AB294 ####Tempering Kiln Tender: TARCI LIZARRAGA ([id number])[address] [address] [place] Hemoglobin (Bld) [Mass/Vol] 10.6 g/dL Low 13.0-18.0 [facility] Comment on above: Performed By: #### L AB294 ####Tempering Kiln Tender: TRACI LIZARRAGA ([id number])[facility] ([facility])[address] [place] [address] MCH (RBC) [Entitic mass] 29.2 pg Normal 26.0-34.0 [facility] Comment on above: Performed By: #### L AB294 ####Tempering Kiln Tender: TRACI LIZARRAGA ([id number])[facility])[address] [place] [address] MCHC 32.5 % Normal 30.5-36.0 [facility] Comment on above: Performed By: #### L [id number] ####Tempering Kiln Tender: TRACI LIZARRAGA ([id number])[facility] ([facility])[address] [place] [address] MCV (RBC) [Entitic vol] 89.8 fL Normal 77.0-99.0 [facility] Comment on above: Performed By: #### L [id number] ####Tempering Kiln Tender: TRACI LIZARRAGA ([id number])[facility] ([facility])[address] [place] [address] Platelet mean volume (Bld) [Entitic vol] 9.8 fL Normal 9.0-12.7 [facility] Comment on above: Performed By: #### L [id number] ####Tempering Kiln Tender: TRACI LIZARRAGA ([id number])[facility] ([facility])[address] [place] [address] Platelets (Bld) [#/Vol] 226 10*3/uL Normal 140-440 [facility] Comment on above: Performed By: #### L [id number] ####Tempering Kiln Tender: TRACI LIZARRAGA ([id number])[facility] ([facility])[address] [place] [address] RBC (Bld) [#/Vol] 3.63 10*6/uL Low 4.40-5.90 [facility] Comment on above: Performed By: #### L [id number] ####Tempering Kiln Tender: TRACI LIZARRAGA ([id number])[facility] ([facility])[address] [place] [address] WBC (Bld) [#/Vol] 12.1 10*3/uL High 3.6-10.7 [facility] Comment on above: Performed By: #### L [id number] ####Tempering Kiln Tender: TRACI LIZARRAGA ([id number])[facility] ([facility])[address] [place] [address] CBC panel Auto (Bld)on 08-10 Erythrocyte distribution width (RBC) [Ratio] 14.3 % 11.5 - 15.0 % [facility] Hematocrit (Bld) [Volume fraction] 32.6 % Low 40.0 - 52.0 % [facility] Hemoglobin (Bld) [Mass/Vol] 10.6 g/dL Low 13.0 - 18.0 g/dL [facility] Interpretation and review of laboratory results Abnormal [facility] MCH (RBC) [Entitic mass] 29.2 pg 26. 0 - 34.0 pg [facility] MCHC (RBC) [Mass/Vol] 32.5 % 30.5 - 36.0 % [facility] MCV (RBC) [Entitic vol] 89.8 fL 77.0 - 99.0 fL [facility] Platelet mean volume (Bld) [Entitic vol] 9.8 fL 9.0 - 12.7 fL [facility] Platelets (Bld) [#/Vol] 226 10*3/uL 140 - 440 10*3/uL [facility] RBC (Bld) [#/Vol] 3.63 10*6/uL Low 4.40 - 5.9 0 10*6/uL [facility] WBC (Bld) [#/Vol] 12.1 10*3/uL High 3.6 - 10.7 10*3/uL [facility] Laboratory - Chemistry and C hemistry - challengeon 08-10-2024 Glucose [Mass/Vol] 141 mg/dL High 70 - 100 mg/dL [facility] Glucose [Mass/Vol] 168 mg/dL High 70 - 100 mg/dL [facility] Glucose [Mass/Vol] 155 mg/dL High 70 - 100 mg/dL [facility] Glucose [Mass/Vol] 136 mg/dL High 70 - 100 mg/dL [facility] Magnesium [Mass/Vol] 2.3 mg/dL 1.6 - 2 .6 mg/dL [facility] Base excess Calc (BldV) [Moles/Vol] 11.4 mmol/L High -3.0 - 3.0 mmol/L [facility] CO2 (BldV) [Partial pressure] 74 mm[Hg] High [facility] CO2 [Moles/Vol] 41.9 mmol/L High 24.0 - 28.0 mmol/L [facility] HCO3 (Bld) [Moles/Vol] 39.7 mmol/L High 23.0 - 27.0 mmol/L [facility] Oxygen (BldV) [Partial pressure] 47.1 mm[Hg] mm Hg [facility] pH (BldV) 7.347 [pH] 7.330 - 7.430 [facility] Laboratory - Hematology and Cell countson 08-10-2024 Hemoglobin (Bld) [Mass/Vol] 11.5 g/dL 7.0 g/dl [facility] MAGNESIUMon 08-10-2024 Magnesium [Mass/Vol] 2.3 mg/dL Normal 1.6-2.6 [facility] Comment on above: Result Comment: MELINDA Torres COMMENTS:Higher values can be expected in females during menses. Performed By: #### L AB103, [id number] ####Tempering Kiln Tender: TRACI LIZARRAGA ([id number])[address] Magnesium [Mass/Vol]on 08-10 Interpretation and review of laboratory results Normal [facility] No Panel Informationon 08-10 Interpretation and review of laboratory results Abnormal [facility] Interpretation and review of laboratory results Abnormal [facility] Interpretation and review of laboratory results Abnormal [facility] Interpretation and review of laboratory results Abnormal [facility] Interpretation and review of laboratory results Abnormal [facility] Source Of Oxygen Non-Invasive Ventilator [facility] Progress Noteon 08-10-2024 Progress Note Normal [facility] Progress Note Normal [facility] Progress Note Normal [facility] Progress Note Normal [facility] Vital signson 08-10-2024 Oxygen saturation in Venous blood 76.2 % [facility] XR CHEST 1 VIEWon 08-10-2024 XR CHEST 1 VIEW Normal [facility] XR Chest Single viewon 08-10 [facility] Radiology Study observation (narrative) [facility] 30on 08-09-2024 30 Normal [facility] BASIC METABOLIC PANELon 07-28 Anion gap [Moles/Vol] 14 mmol/L High 3-13 [facility] Comment on above: Performed By: #### L AB15 ####Tempering Kiln Tender: TRACI LIZARRAGA ([id number])[facility])[address] [place] [address] Calcium [Mass/Vol] 9.1 mg/dL Normal 8.8-10.0 [facility] Comment on above: Performed By: #### L AB15 ####Tempering Kiln Tender: TRACI LIZARRAGA ([id number])[facility])[address] [place] [address] Chloride [Moles/Vol] 95 mmol/L Low 98-107 [facility] Comment on above: Performed By: #### L AB15 ####Tempering Kiln Tender: TRACI LIZARRAGA ([id number])[facility])[address] [place] [address] CO2 [Moles/Vol] 33 mmol/L High 23-31 [facility] Comment on above: Performed By: #### L AB15 ####Tempering Kiln Tender: TRACI LIZARRAGA ([id number])[facility])[address] [place] [address] Creatinine [Mass/Vol] 1.53 mg/dL High 0.72-1.[address] [facility] Comment on above: Performed By: #### L AB15 ####Tempering Kiln Tender: TRACI LIZARRAGA ([id number])[facility] ([facility])[address] [place] [address] [place] GLOMERULAR FILTRATION RATE ML/MIN/1.73 SQ M.PREDICTED 50.1 mL/min/1.73m*2 Low >60.0 [facility] Comment on above: Result Comment: Calc ulation based on the Chronic Kidney Disease Epidemiology Collaboration (CKD-EPI) equation refit without adjustment for race Performed By: #### L AB15 ####Tempering Kiln Tender: TRACI LIZARRAGA ([id number])[facility] ([facility])[address] [place] [address] Glucose [Mass/Vol] 85 mg/dL Normal 82-115 [facility] Comment on above: Performed By: #### L AB15 ####Tempering Kiln Tender: TRACI LIZARRAGA ([id number])[facility])[address] [place] [address] [place] Potassium [Moles/Vol] 3.6 mmol/L Normal 3.5-5.1 [facility] Comment on above: Result Comment: [facility] potassium values may be up to 0.5 mmol/L lower than serum values. Performed By: #### L AB15 ####Tempering Kiln Tender: TRACI LIZARRAGA ([id number])[facility] ([facility])[address] [place] [address] [place] Sodium [Moles/Vol] 142 mmol/L Normal 136-145 [facility] Comment on above: Performed By: #### L AB15 ####Tempering Kiln Tender: TRACI LIZARRAGA ([id number])[facility])[address] [place] [address] [place] Urea nitrogen [Mass/Vol] 66 mg/dL High 9-23 [facility] Comment on above: Performed By: #### L AB15 ####Tempering Kiln Tender: TRACI LIZARRAGA ([id number])[facility])[address] [place] [address] [place] Anion gap [Moles/Vol] 11 mmol/L Normal 3-13 [facility] Comment on above: Performed By: #### L AB15, [id number] ####Tempering Kiln Tender: TRACI LIZARRAGA ([id number])[facility] [place] [address] Calcium [Mass/Vol] 8.9 mg/dL Normal 8.8-10.0 [facility] Comment on above: Performed By: #### L AB15, [id number] ####Tempering Kiln Tender: TRACI LIZARRAGA ([id number])[facility] [place] [address] [place] Chloride [Moles/Vol] 91 mmol/L Low 98-107 [facility] Comment on above: Performed By: #### L AB15, [id number] ####Tempering Kiln Tender: TRACI LIZARRAGA ([id number])[facility] [place] [address] CO2 [Moles/Vol] 32 mmol/L High 23-31 [facility] Comment on above: Performed By: #### L AB15, [id number] ####Tempering Kiln Tender: TRACI LIZARRAGA ([id number])[facility] ([facility])[address] [place] [address] Creatinine [Mass/Vol] 1.48 mg/dL High 0.72-1.[address] [facility] Comment on above: Performed By: #### L AB15, [id number] ####Tempering Kiln Tender: TRACI LIZARRAGA ([id number])[facility] ([facility])[address] [place] [address] [place] GLOMERULAR FILTRATION RATE ML/MIN/1.73 SQ M.PREDICTED 52.2 mL/min/1.73m*2 Low >60.0 [facility] Comment on above: Result Comment: Calc ulation based on the Chronic Kidney Disease Epidemiology Collaboration (CKD-EPI) equation refit without adjustment for race Performed By: #### L AB15, [id number] ####Tempering Kiln Tender: TRACI LIZARRAGA ([id number])[facility] ([facility])[address] [place] [address] [place] Glucose [Mass/Vol] 132 mg/dL High 82-115 [facility] Comment on above: Performed By: #### L AB15, [id number] ####Tempering Kiln Tender: TRACI LIZARRAGA ([id number])[facility])[address] [place] [address] Potassium [Moles/Vol] 3.6 mmol/L Normal 3.5-5.1 [facility] Comment on above: Result Comment: [facility] potassium values may be up to 0.5 mmol/L lower than serum values. Performed By: #### L AB15, [id number] ####Tempering Kiln Tender: TRAIC LIZARRAGA ([id number])[facility])[address] [place] [address] Sodium [Moles/Vol] 134 mmol/L Low 136-145 [facility] Comment on above: Performed By: #### L AB15, [id number] ####Tempering Kiln Tender: TRACI LIZARRAGA ([id number])[address] Urea nitrogen [Mass/Vol] 66 mg/dL High 9-23 [facility] Comment on above: Performed By: #### L AB15, [id number] ####Tempering Kiln Tender: TRACI LIZARRAGA ([id number])[address] BLOOD GAS, VENOUSon 08-10-19 25 AMOUNT OF OXYGEN Normal [facility] Comment on above: Result Comment: MELINDA Torres COMMENTS:Assessment of oxygenation is best done with an arterial blood gas determination. Reference ranges for pO2, bicarbonate, and base excess are for mixed venous blood. Specimens drawn from a peripheral vein will often have higher values. Performed By: #### L AB79 ####Tempering Kiln Tender: TRACI LIZARRAGA ([id number])[facility])[address] [place] [address] Base excess Calc (BldV) [Moles/Vol] 11.0 mmol/L High -3.0-3.0 [facility] Comment on above: Performed By: #### L AB79 ####Tempering Kiln Tender: TRACI LIZARRAGA ([id number])[address] CO2 [Moles/Vol] 42.1 mmol/L High 24.0-28.0 [facility] Comment on above: Performed By: #### L AB79 ####Tempering Kiln Tender: TRACI LIZARRAGA ([id number])[facility])[address] [place] [address] HCO3 (Bld) [Moles/Vol] 39.7 mmol/L High 23.0-27.0 [facility] Comment on above: Performed By: #### L AB79 ####Tempering Kiln Tender: TRACI LIZARRAGA ([id number])[facility])[address] [place] [address] Hemoglobin (Bld) [Mass/Vol] 11.7 g/dL Normal Screen only [facility] Comment on above: Performed By: #### L AB79 ####Tempering Kiln Tender: TRACI LIZARRAGA ([id number])[facility])[address] [place] [address] OXYGEN (MM HG) IN VENOUS BLOOD 48.0 mm Hg Normal [facility] Comment on above: Performed By: #### L AB79 ####Tempering Kiln Tender: TRACI LIZARRAGA ([id number])[facility])[address] [place] [address] OXYGEN SATURATION (%) IN VENOUS BLOOD 75.3 % Normal [facility] Comment on above: Performed By: #### L AB79 ####Tempering Kiln Tender: TRACI LIZARRAGA ([id number])[facility])[address] [place] [address] [place] PCO2, AMITA 78.0 mm Hg High 40.0-55.0 [facility] Comment on above: Performed By: #### L AB79 ####Tempering Kiln Tender: TRACI LIZARRAGA ([id number])[facility])[address] [place] [address] PH VENOUS 7.325 Low 7.330-7.430 [facility] Comment on above: Performed By: #### L AB79 ####Tempering Kiln Tender: TRACI LIZARRAGA ([id number])[facility] ([facility])[address] [place] [address] SOURCE OF OXYGEN Non-Invasive Ventilator Normal [facility] Comment on above: Performed By: #### L AB79 ####Tempering Kiln Tender: TRACI LIZARRAGA ([id number])[facility] ([facility])[address] [place] [address] AMOUNT OF OXYGEN Normal [facility] Comment on above: Result Comment: MELINDA Torres COMMENTS:Assessment of oxygenation is best done with an arterial blood gas determination. Reference ranges for pO2, bicarbonate, and base excess are for mixed venous blood. Specimens drawn from a peripheral vein will often have higher values. Performed By: #### L AB79 ####Tempering Kiln Tender: TRACI LIZARRAGA ([id number])[facility] ([facility])[address] [place] [address] Base excess Calc (BldV) [Moles/Vol] 8.1 mmol/L High -3.0-3.0 [facility] Comment on above: Performed By: #### L AB79 ####Tempering Kiln Tender: TRACI LIZARRAGA ([id number])[facility] ([facility])[address] [place] [address] CO2 [Moles/Vol] 38.5 mmol/L High 24.0-28.0 [facility] Comment on above: Performed By: #### L AB79 ####Tempering Kiln Tender: TRACI LIZARRAGA ([id number])[facility] ([facility])[address] [place] [address] [place] HCO3 (Bld) [Moles/Vol] 36.3 mmol/L High 23.0-27.0 [facility] Comment on above: Performed By: #### L AB79 ####Tempering Kiln Tender: TRACI LIZARRAGA ([id number])[facility])[address] [place] [address] Hemoglobin (Bld) [Mass/Vol] 11.3 g/dL Normal Screen only [facility] Comment on above: Performed By: #### L AB79 ####Tempering Kiln Tender: TRACI LIZARRAGA ([id number])[facility] ([facility] [place] [address] OXYGEN (MM HG) IN VENOUS BLOOD 45.9 mm Hg Normal [facility] Comment on above: Performed By: #### L AB79 ####Tempering Kiln Tender: TRACI LIZARRAGA ([id number])[facility] ([facility])[address] [place] [address] OXYGEN SATURATION (%) IN VENOUS BLOOD 73.5 % Normal [facility] Comment on above: Performed By: #### L AB79 ####Tempering Kiln Tender: TRACI LIZARRAGA ([id number])[facility] ([facility])[address] [place] [address] PCO2, AMITA 71.5 mm Hg High 40.0-55.0 [facility] Comment on above: Performed By: #### L AB79 ####Tempering Kiln Tender: TRACI LIZARRAGA ([id number])[facility] ([facility])[address] [place] [address] PH VENOUS 7.323 Low 7.330-7.430 [facility] Comment on above: Performed By: #### L AB79 ####Tempering Kiln Tender: TRACI LIZARRAGA ([id number])[facility])[address] [place] [address] SOURCE OF OXYGEN BiPAP Normal [facility] Comment on above: Performed By: #### L AB79 ####Tempering Kiln Tender: TRACI LIZARRAGA ([id number])[facility] ([facility])[address] [place] [address] Basic metabolic 1998 panelon 08-09-2024 Anion gap [Moles/Vol] 14 mmol/L High 3 - 13 mmol/L [facility] Calcium [Mass/Vol] 9.1 mg/dL 8.8 - 10. 0 mg/dL [facility] Chloride [Moles/Vol] 95 mmol/L Low 98 - 10 7 mmol/L [facility] CO2 [Moles/Vol] 33 mmol/L High 23 - 31 mmol/L [facility] Creatinine [Mass/Vol] 1.53 mg/dL High 0.72 - 1.25 mg/dL [facility] GFR/1.73 sq M.predicted (S/P/Bld) [Vol rate/Area] 50.1 mL/min Low - PINF [facility] Glucose [Mass/Vol] 85 mg/dL 82 - 115 mg/dL [facility] Interpretation and review of laboratory results Abnormal [facility] Potassium [Moles/Vol] 3.6 mmol/L 3.5 - 5.1 mmol/L [facility] Sodium [Moles/Vol] 142 mmol/L 136 - 145 mmol/L [facility] Urea nitrogen [Mass/Vol] 66 mg/dL High 9 - 23 mg/dL [facility] Anion gap [Moles/Vol] 11 mmol/L 3 - 13 mmol/L [facility] Calcium [Mass/Vol] 8.9 mg/dL 8.8 - 10. 0 mg/dL [facility] Chloride [Moles/Vol] 91 mmol/L Low 98 - 10 7 mmol/L [facility] CO2 [Moles/Vol] 32 mmol/L High 23 - 31 mmol/L [facility] Creatinine [Mass/Vol] 1.48 mg/dL High 0.72 - 1.25 mg/dL [facility] GFR/1.73 sq M.predicted (S/P/Bld) [Vol rate/Area] 52.2 mL/min Low - PINF [facility] Glucose [Mass/Vol] 132 mg/dL High 82 - 115 mg/dL [facility] Interpretation and review of laboratory results Abnormal [facility] Potassium [Moles/Vol] 3.6 mmol/L 3.5 - 5.1 mmol/L [facility] Sodium [Moles/Vol] 134 mmol/L Low 136 - 145 mmol/L [facility] Urea nitrogen [Mass/Vol] 66 mg/dL High 9 - 23 mg/dL [facility] CBC (HEMOGRAM)on 08-09-2024 Erythrocyte distribution width (RBC) [Ratio] 13.8 % Normal 11.5-15.0 [facility] Comment on above: Performed By: #### L [id number] ####Tempering Kiln Tender: TRACI LIZARRAGA ([id number])[facility] ([address] Hematocrit (Bld) [Volume fraction] 29.3 % Low 40.0-52.0 [facility] Comment on above: Performed By: #### L [id number] ####Tempering Kiln Tender: TRACI LIZARRAGA ([id number])[facility])[address] [place] [address] Hemoglobin (Bld) [Mass/Vol] 9.6 g/dL Low 13.0-18.0 [facility] Comment on above: Performed By: #### L [id number] ####Tempering Kiln Tender: TRACI LIZARRAGA ([id number])[facility] ([facility])[address] [place] [address] MCH (RBC) [Entitic mass] 29.3 pg Normal 26.0-34.0 [facility] Comment on above: Performed By: #### L AB294 ####Tempering Kiln Tender: TRACI LIZARRAGA ([id number])[facility])[address] [place] [address] MCHC 32.8 % Normal 30.5-36.0 [facility] Comment on above: Performed By: #### L [id number] ####Tempering Kiln Tender: TRACI LIZARRAGA ([id number])[facility] ([facility])[address] [place] [address] MCV (RBC) [Entitic vol] 89.3 fL Normal 77.0-99.0 [facility] Comment on above: Performed By: #### L AB294 ####Tempering Kiln Tender: TRACI LIZARRAGA ([id number])[facility])[address] [place] [address] Platelet mean volume (Bld) [Entitic vol] 10.3 fL Normal 9.0-12.7 [facility] Comment on above: Performed By: #### L AB294 ####Tempering Kiln Tender: TRACI LIZARRAGA ([id number])[facility])[address] [place] [address] Platelets (Bld) [#/Vol] 179 10*3/uL Normal 140-440 [facility] Comment on above: Performed By: #### L AB294 ####Tempering Kiln Tender: TRACI LIZARRAGA ([id number])[facility] ([facility])[address] [place] [address] RBC (Bld) [#/Vol] 3.28 10*6/uL Low 4.40-5.90 [facility] Comment on above: Performed By: #### L AB294 ####Tempering Kiln Tender: TRACI LIZARRAGA ([id number])[facility] ([facility])[address] [place] [address] WBC (Bld) [#/Vol] 10.6 10*3/uL Normal 3.6-10.7 [facility] Comment on above: Performed By: #### L [id number] ####Tempering Kiln Tender: TRACI LIZARRAGA ([id number])[facility] ([facility])[address] [place] [address] CBC panel Auto (Bld)on 08-09 Erythrocyte distribution width (RBC) [Ratio] 13.8 % 11.5 - 15.0 % [facility] Hematocrit (Bld) [Volume fraction] 29.3 % Low 40.0 - 52.0 % [facility] Hemoglobin (Bld) [Mass/Vol] 9.6 g/dL Low 13.0 - 18.0 g/dL [facility] Interpretation and review of laboratory results Abnormal [facility] MCH (RBC) [Entitic mass] 29.3 pg 26. 0 - 34.0 pg [facility] MCHC (RBC) [Mass/Vol] 32.8 % 30.5 - 36.0 % [facility] MCV (RBC) [Entitic vol] 89.3 fL 77.0 - 99.0 fL [facility] Platelet mean volume (Bld) [Entitic vol] 10.3 fL 9.0 - 12.7 fL [facility] Platelets (Bld) [#/Vol] 179 10*3/uL 140 - 440 10*3/uL [facility] RBC (Bld) [#/Vol] 3.28 10*6/uL Low 4.40 - 5.9 0 10*6/uL [facility] WBC (Bld) [#/Vol] 10.6 10*3/uL 3.6 - 10.7 10*3/uL [facility] ERICKSON RIGGS ([id number]) 1960 M Date Time Provider Department 08/09/24 CHAPIS DICKENS INTMWS During your visit today, we recorded the following information about you: Fabienne Garcia LPN 08/09/2024 2:45 PM Signed Patient call was going to be transferred to nurse from a PSS but her had hung up the call. The PSS said the patient wanted to know if Dr Plasencia knew how to speak equatorial guinean so he could learn the bible to get ready to go to [facility] or go to [facility]. The PSS said he was little mad that he was on hold to get a nurse for almost 12 minutes. Not sure if the patient is this is his normal personality? Saw where HYDRAULIC LIFT OPERATOR had seen him in Apr for an appt sending note to her to review since PCP is out of the office this afternoon. Please advise Chapis Dickens APRN.NICOLE 08/09/2024 3:28 PM Signed Unfortunately I cannot recall if patient exhibited any bizarre behavior during the last office visit with me. Regardless I would recommend asking for a welfare check Chapis Dickens APRN.Morgan Wong MA 08/09/2024 3:39 PM Signed Spoke to [facility] and office will be sent out to do welfare check on patient. Morgan Suh MA Allergies As of Date: 08/09/2024 Noted Allergy Reaction PENICILLINS 04/11/2011 4 - Hives Comments: Hives or GI upset-patient unsure ASA (ASPIRIN) 07/28/2017 4 - Hives 8 - GI Upset Date Reviewed: 05/04/2024 Reviewed by: Chapis Dickens APRN.PLUMBING MANAGER - Fully Assessed Reason for Visit: Question [7847] Prescriptions as of 08/09/2024 - doxazosin (CARDURA) 2 mg tablet Take 1 tablet by mouth daily at bedtime. - CALCIUM-VITAMIN D3-MAGNESIUM ORAL Take by mouth. - amLODIPine (NORVASC) 10 mg tablet Take 1 tablet by mouth once daily. - metoprolol tartrate, short acting, (LOPRESSOR) 25 mg tablet Take 25 mg by mouth twice daily. - TURMERIC ORAL Take 1,500 mg by mouth twice daily. - CINNAMON Take 1,000 mL by mouth once daily. - ascorbic acid/collagen hydr (COLLAGEN PLUS VITAMIN C ORAL) Take 1,000 mg by mouth once daily. - PAPAYA ENZYME ORAL Take 1 capsule by mouth once daily. Problem List As Of Date 08/09/2024 Noted Resolved Solitary kidney, acquired [Z90.5] 04/11/2011 Kidney stones [N20.0] 04/11/2011 12/29/2019 Abnormal PSA [R97.20] 04/11/2011 09/01/2018 Hypercalciuria [R82.994] 04/22/2011 12/29/2019 Cholelithiasis [K80.20] 07/17/2014 10/27/2017 Abdominal pain [R10.9] 07/17/2014 10/27/2017 Tobacco abuse [Z72.0] 07/25/2014 Severe sleep apnea [G47.30] 07/25/2014 07/25/2014 SONIA (obstructive sleep apnea) intolerant to CPA*07/25/2014 BPH with obstruction/lower urinary tract sympto*10/27/2017 Paroxysmal atrial fibrillation (HCC) [I48.0] 10/27/2017 Gout [M10.9] Hypertension [I10] Obesity, Class I, BMI 30-34.9 [E66.811] 04/25/2019 10/09/2021 Upper back pain [M54.9] 05/09/2019 10/09/2021 DDD (degenerative disc disease), lumbar [M51.36*05/09/2019 Neck pain [M54.2] 05/09/2019 10/09/2021 Chronic pain syndrome [G89.4] 05/09/2019 Chronic bronchitis, obstructive (HCC) [J44.89] 07/08/2020 Ascending aorta dilation [I77.810] 01/06/2019 07/27/2024 Obesity, Class II, BMI 35-39.9 [E66.812] 01/02/2021 10/09/2021 Obesity, Class III, BMI >= 40 [E66.813] 10/09/2021 Nodule of left lung [R91.1] 06/04/2022 Cardiomyopathy (HCC) [I42.9] 06/04/2022 Ascending aortic aneurysm [I71.21] 07/27/2024 New onset type 2 diabetes mellitus (HCC) [E11.9]07/27/2024 Encounter Status:Closed by MORGAN SUH on 08/09/24 Normal [facility] ECG 12-LEADon 08-09-2024 ECG 12-LEAD IMPRESSION: Sinus bradycardia Prolonged MT interval RIGHT BUNDLE BRANCH BLOCK INFERIOR INFARCT, AGE INDETERMINATE Electronically Signed On 08-09-2024 16:11:29 EDT by Yousuf Acosta Normal [facility] Laboratory - Chemistry and C hemistry - challengeon 08-09-2024 Glucose [Mass/Vol] 91 mg/dL 70 - 100 mg/dL [facility] Base excess Calc (BldV) [Moles/Vol] 11 mmol/L High -3.0 - 3.0 mmol/L [facility] CO2 (BldV) [Partial pressure] 78 mm[Hg] High [facility] CO2 [Moles/Vol] 42.1 mmol/L High 24.0 - 28.0 mmol/L [facility] HCO3 (Bld) [Moles/Vol] 39.7 mmol/L High 23.0 - 27.0 mmol/L [facility] Oxygen (BldV) [Partial pressure] 48 mm[Hg] mm Hg [facility] pH (BldV) 7.325 [pH] Low 7.330 - 7.430 [facility] Glucose [Mass/Vol] 111 mg/dL High 70 - 100 mg/dL [facility] Glucose [Mass/Vol] 106 mg/dL High 70 - 100 mg/dL [facility] Glucose [Mass/Vol] 98 mg/dL 70 - 100 mg/dL [facility] Magnesium [Mass/Vol] 2.1 mg/dL 1.6 - 2 .6 mg/dL [facility] Laboratory - Chemistry and C hemistry - challengeOrdered By: Yolanda Morfin on 08-09-2024 Base excess Calc (BldV) [Moles/Vol] 8.1 mmol/L High -3.0 - 3.0 mmol/L [facility] CO2 (BldV) [Partial pressure] 71.5 mm[Hg] High [facility] CO2 [Moles/Vol] 38.5 mmol/L High 24.0 - 28.0 mmol/L [facility] HCO3 (Bld) [Moles/Vol] 36.3 mmol/L High 23.0 - 27.0 mmol/L [facility] Oxygen (BldV) [Partial pressure] 45.9 mm[Hg] mm Hg [facility] pH (BldV) 7.323 [pH] Low 7.330 - 7.430 [facility] Laboratory - Hematology and Cell countson 08-09-2024 Hemoglobin (Bld) [Mass/Vol] 11.7 g/dL 7.0 g/dl [facility] Laboratory - Hematology and Cell countsOrdered By: Yolanda Morfin on 08-09-2024 Hemoglobin (Bld) [Mass/Vol] 11.3 g/dL 7.0 g/dl [facility] MAGNESIUMon 08-09-2024 Magnesium [Mass/Vol] 2.1 mg/dL Normal 1.6-2.6 [facility] Comment on above: Result Comment: MELINDA Torres COMMENTS:Higher values can be expected in females during menses. Performed By: #### L AB15, [id number] ####Tempering Kiln Tender: TRACI LIZARRAGA ([id number])[address] Magnesium [Mass/Vol]on 08-09 Interpretation and review of laboratory results Normal [facility] No Panel Informationon 08-09 Interpretation and review of laboratory results Normal [facility] Interpretation and review of laboratory results Abnormal [facility] Source Of Oxygen Non-Invasive Ventilator [facility] Interpretation and review of laboratory results Abnormal [facility] CV EPIPHANY [facility] Interpretation and review of laboratory results Abnormal [facility] Interpretation and review of laboratory results Normal [facility] No Panel InformationOrdered By: Yousuf Acosta on 08-09-2024 P [place] 33 degrees [facility] Work Phone: MT Interval 225 ms [facility] Work Phone: QRS [place] 92 degrees [facility] Work Phone: QRSD Interval 166 ms [facility] Work Phone: QT Interval 501 ms [facility] Work Phone: QTC Interval 460 ms [facility] Work Phone: T Wave [place] 47 degrees [facility] Work Phone: [facility] Work Phone: No Panel InformationOrdered By: Yolanda Morfin on 08-09-2024 Interpretation and review of laboratory results Abnormal [facility] Source Of Oxygen BiPAP [facility] Nursing Noteon 08-09-2024 Nursing Note Normal [facility] Progress Noteon 08-09-2024 Progress Note Normal [facility] Progress Note Normal [facility] Progress Note Normal [facility] Progress Note Normal [facility] RESPIRATORY CULTURE AND STAI Non 08-09-2024 RESPIRATORY CULTURE AND STAIN Normal [facility] Comment on above: Performed By: #### L [id number] ####Tempering Kiln Tender: TRACI LIZARRAGA ([phone])[address] US Heart TransesophagealOrde red By: Marlo Rodriguez on 08-09-2024 Aortic Arch 3.2 cm [facility] Work Phone: Aortic Sinus Valsalva 5 cm [facility] Work Phone: Aortic Sinus Valsalva Index 1.87 cm/m2 [facility] Work Phone: Ascending Aorta 4.6 cm [facility] Work Phone: Ascending Aorta Index 1.72 cm/m2 [facility] Work Phone: EF Physician 60 % [facility] Work Phone: Sinotubular [place] 3.9 cm [facility] [employer] Work Phone: [phone] [facility] [employer] Work Phone: US Heart Transesophagealon 0 08-09-2024 CV CPACS HEMO Vital signson 08-09-2024 Oxygen saturation in Venous blood 75.3 % [facility] Vital signsOrdered By: Yousuf Acosta on 08-09-2024 Heart rate 51 /min bpm [facility] [employer] Work Phone: Vital signsOrdered By: Yolanda Morfin on 08-09-2024 Oxygen saturation in Venous blood 73.5 % [facility] XR CHEST 1 VIEWon 08-09-2024 XR CHEST 1 VIEW Normal [facility] XR CHEST 1 VIEW Normal [facility] XR Chest Single viewon 08-09 [facility] Radiology Study observation (narrative) [facility] Radiology Study observation (narrative) [facility] XR Chest Single viewOrdered By: Jules Gonzalez on 08-09-2024 [facility] [employer] Work Phone: 30on 08-08-2024 30 Normal [facility] [id number] 08-08-2024 [id number] Normal [facility] BASIC METABOLIC PANELon 07-28 Anion gap [Moles/Vol] 14 mmol/L High 3-13 [facility] Comment on above: Performed By: #### L AB15 ####Tempering Kiln Tender: TRACI LIZARRAGA ([id number])[address] Calcium [Mass/Vol] 8.9 mg/dL Normal 8.8-10.0 [facility] Comment on above: Performed By: #### L AB15 ####Tempering Kiln Tender: TRACI LIZARRAGA ([id number])[facility])[address] [place] [address] Chloride [Moles/Vol] 88 mmol/L Low 98-107 [facility] Comment on above: Performed By: #### L AB15 ####Tempering Kiln Tender: TRACI LIZARRAGA ([id number])[facility] ([facility])[address] [place] [address] CO2 [Moles/Vol] 30 mmol/L Normal 23-31 [facility] Comment on above: Performed By: #### L AB15 ####Tempering Kiln Tender: TRACI LIZARRAGA ([id number])[facility] ([facility])[address] [place] [address] Creatinine [Mass/Vol] 1.57 mg/dL High 0.72-1.25 [facility] Comment on above: Performed By: #### L AB15 ####Tempering Kiln Tender: TRACI LIZARRAGA ([phone])[facility])[address] [place] [address] GLOMERULAR FILTRATION RATE ML/MIN/1.73 SQ M.PREDICTED 48.6 mL/min/1.73m*2 Low >60.0 [facility] Comment on above: Result Comment: Calc ulation based on the Chronic Kidney Disease Epidemiology Collaboration (CKD-EPI) equation refit without adjustment for race Performed By: #### L AB15 ####Tempering Kiln Tender: TRACI LIZARRAGA ([id number])[facility] ([facility])[address] [place] [address] Glucose [Mass/Vol] 228 mg/dL High 82-115 [facility] Comment on above: Performed By: #### L AB15 ####Tempering Kiln Tender: TRACI LIZARRAGA ([id number])[facility])[address] [place] [address] Potassium [Moles/Vol] 3.6 mmol/L Normal 3.5-5.1 [facility] Comment on above: Result Comment: [facility] potassium values may be up to 0.5 mmol/L lower than serum values. Performed By: #### L AB15 ####Tempering Kiln Tender: TRACI LIZARRAGA ([id number])[facility])[address] [place] [address] Sodium [Moles/Vol] 132 mmol/L Low 136-145 [facility] Comment on above: Performed By: #### L AB15 ####Tempering Kiln Tender: TRACI LIZARRAGA ([id number])[facility] ([facility])[address] [place] [address] [place] Urea nitrogen [Mass/Vol] 68 mg/dL High 9-23 [facility] Comment on above: Performed By: #### L AB15 ####Tempering Kiln Tender: TRACI LIZARRAGA ([id number])[facility] Anion gap [Moles/Vol] 11 mmol/L Normal 3-13 [facility] Comment on above: Performed By: #### L AB15 ####Tempering Kiln Tender: TRACI LIZARRAGA ([id number])[facility] ([facility])[address] [place] [address] Calcium [Mass/Vol] 8.9 mg/dL Normal 8.8-10.0 [facility] Comment on above: Performed By: #### L AB15 ####Tempering Kiln Tender: TRACI LIZARRAGA ([id number])[facility] [place] [address] [place] Chloride [Moles/Vol] 92 mmol/L Low 98-107 [facility] Comment on above: Performed By: #### L AB15 ####Tempering Kiln Tender: TRACI LIZARRAGA ([id number])[facility] [place] [address] [place] CO2 [Moles/Vol] 30 mmol/L Normal 23-31 [facility] Comment on above: Performed By: #### L AB15 ####Tempering Kiln Tender: TRACI LIZARRAGA ([id number])[facility] [place] [address] [place] Creatinine [Mass/Vol] 1.55 mg/dL High 0.72-1.25 [facility] Comment on above: Performed By: #### L AB15 ####Tempering Kiln Tender: TRACI LIZARRAGA ([id number])[facility] [place] [address] [place] GLOMERULAR FILTRATION RATE ML/MIN/1.73 SQ M.PREDICTED 49.4 mL/min/1.73m*2 Low >60.0 [facility] Comment on above: Result Comment: Calc ulation based on the Chronic Kidney Disease Epidemiology Collaboration (CKD-EPI) equation refit without adjustment for race Performed By: #### L AB15 ####Tempering Kiln Tender: TRACI LIZARRAGA ([id number])[facility] ([facility])[address] [place] [address] [place] Glucose [Mass/Vol] 162 mg/dL High 82-115 [facility] Comment on above: Performed By: #### L AB15 ####Tempering Kiln Tender: TRACI LIZARRAGA ([id number])[facility])[address] [place] [address] Potassium [Moles/Vol] 4.1 mmol/L Normal 3.5-5.1 [facility] Comment on above: Result Comment: [facility] potassium values may be up to 0.5 mmol/L lower than serum values. Performed By: #### L AB15 ####Tempering Kiln Tender: TRACI LIZARRAGA ([id number])[facility] ([facility])[address] [place] [address] [place] Sodium [Moles/Vol] 133 mmol/L Low 136-145 [facility] Comment on above: Performed By: #### L AB15 ####Tempering Kiln Tender: TRACI LIZARRAGA ([id number])[facility] ([facility])[address] [place] [address] [place] Urea nitrogen [Mass/Vol] 69 mg/dL High 9-23 [facility] Comment on above: Performed By: #### L AB15 ####Tempering Kiln Tender: TRACI LIZARRAGA ([id number])[facility])[address] [place] [address] [place] Anion gap [Moles/Vol] 11 mmol/L Normal 3-13 [facility] Comment on above: Performed By: #### L AB15 ####Tempering Kiln Tender: TRACI LIZARRAGA ([id number])[facility] ([facility])[address] [place] [address] [place] Calcium [Mass/Vol] 8.8 mg/dL Normal 8.8-10.0 [facility] Comment on above: Performed By: #### L AB15 ####Tempering Kiln Tender: TRACI LIZARRAGA ([id number])[facility])[address] [place] [address] Chloride [Moles/Vol] 94 mmol/L Low 98-107 [facility] Comment on above: Performed By: #### L AB15 ####Tempering Kiln Tender: TRACI LIZARRAGA ([id number])[facility] ([facility])[address] [place] [address] CO2 [Moles/Vol] 30 mmol/L Normal 23-31 [facility] Comment on above: Performed By: #### L AB15 ####Tempering Kiln Tender: TRACI LIZARRAGA ([id number])[facility] ([facility])[address] [place] [address] Creatinine [Mass/Vol] 1.53 mg/dL High 0.72-1.25 [facility] Comment on above: Performed By: #### L AB15 ####Tempering Kiln Tender: TRACI LIZARRAGA ([id number])[facility] ([facility])[address] [place] [address] GLOMERULAR FILTRATION RATE ML/MIN/1.73 SQ M.PREDICTED 50.1 mL/min/1.73m*2 Low >60.0 [facility] Comment on above: Result Comment: Calc ulation based on the Chronic Kidney Disease Epidemiology Collaboration (CKD-EPI) equation refit without adjustment for race Performed By: #### L AB15 ####Tempering Kiln Tender: TRACI LIZARRAGA ([id number])[facility] ([facility])[address] [place] [address] [place] Glucose [Mass/Vol] 157 mg/dL High 82-115 [facility] Comment on above: Performed By: #### L AB15 ####Tempering Kiln Tender: TRACI LIZARRAGA ([id number])[facility] ([facility])[address] [place] [address] Potassium [Moles/Vol] 4.1 mmol/L Normal 3.5-5.1 [facility] Comment on above: Result Comment: [facility] potassium values may be up to 0.5 mmol/L lower than serum values. Performed By: #### L AB15 ####Tempering Kiln Tender: TRACI LIZARRAGA ([id number])[facility] ([facility])[address] [place] [address] Sodium [Moles/Vol] 135 mmol/L Low 136-145 [facility] Comment on above: Performed By: #### L AB15 ####Tempering Kiln Tender: TRACI LIZARRAGA ([id number])[facility] ([facility])[address] [place] [address] Urea nitrogen [Mass/Vol] 71 mg/dL High 9-23 [facility] Comment on above: Performed By: #### L AB15 ####Tempering Kiln Tender: TRACI LIZARRAGA ([id number])[facility] ([facility])[address] [place] [address] Anion gap [Moles/Vol] 13 mmol/L Normal 3-13 [facility] Comment on above: Performed By: #### L AB103, LAB15 ####Tempering Kiln Tender: TRACI LIZARRAGA ([id number])[facility] ([facility])[address] [place] [address] Calcium [Mass/Vol] 9.2 mg/dL Normal 8.8-10.0 [facility] Comment on above: Performed By: #### L AB103, LAB15 ####Tempering Kiln Tender: TRACI LIZARRAGA ([id number])[facility] ([facility])[address] [place] [address] [place] Chloride [Moles/Vol] 96 mmol/L Low 98-107 [facility] Comment on above: Performed By: #### L AB103, LAB15 ####Tempering Kiln Tender: TRACI LIZARRAGA ([id number])[facility])[address] [place] [address] CO2 [Moles/Vol] 27 mmol/L Normal 23-31 [facility] Comment on above: Performed By: #### L AB103, LAB15 ####Tempering Kiln Tender: TRACI LIZARRAGA ([id number])[facility] [place] [address] Creatinine [Mass/Vol] 1.52 mg/dL High 0.72-1.25 [facility] Comment on above: Performed By: #### L AB103, LAB15 ####Tempering Kiln Tender: TRACI LIZARRAGA ([id number])[facility] ([facility])[address] [place] [address] [place] GLOMERULAR FILTRATION RATE ML/MIN/1.73 SQ M.PREDICTED 50.5 mL/min/1.73m*2 Low >60.0 [facility] Comment on above: Result Comment: Calc ulation based on the Chronic Kidney Disease Epidemiology Collaboration (CKD-EPI) equation refit without adjustment for race Performed By: #### L AB103, LAB15 ####Tempering Kiln Tender: TRAIC LIZARRAGA ([id number])[facility] ([facility])[address] [place] [address] Glucose [Mass/Vol] 101 mg/dL Normal 82-115 [facility] Comment on above: Performed By: #### L AB103, LAB15 ####Tempering Kiln Tender: TRACI LIZARRAGA ([id number])[facility])[address] [place] [address] Potassium [Moles/Vol] 4.8 mmol/L Normal 3.5-5.1 [facility] Comment on above: Result Comment: [facility] potassium values may be up to 0.5 mmol/L lower than serum values. Performed By: #### L AB103, LAB15 ####Tempering Kiln Tender: TRACI LIZARRAGA ([id number])[facility] [place] [address] [place] Sodium [Moles/Vol] 136 mmol/L Normal 136-145 [facility] Comment on above: Performed By: #### L AB103, LAB15 ####Tempering Kiln Tender: TRACI LIZARRAGA ([id number])[facility] [place] [address] [place] Urea nitrogen [Mass/Vol] 64 mg/dL High 9-23 [facility] Comment on above: Performed By: #### L AB103, LAB15 ####Tempering Kiln Tender: TRACI LIZARRAGA ([id number])[facility] ([address] Basic metabolic 1998 panelon 08-08-2024 Anion gap [Moles/Vol] 14 mmol/L High 3 - 13 mmol/L [facility] Calcium [Mass/Vol] 8.9 mg/dL 8.8 - 10. 0 mg/dL [facility] Chloride [Moles/Vol] 88 mmol/L Low 98 - 10 7 mmol/L [facility] CO2 [Moles/Vol] 30 mmol/L 23 - 31 mmol/L [facility] Creatinine [Mass/Vol] 1.57 mg/dL High 0.72 - 1.25 mg/dL [facility] GFR/1.73 sq M.predicted (S/P/Bld) [Vol rate/Area] 48.6 mL/min Low - PINF [facility] Glucose [Mass/Vol] 228 mg/dL High 82 - 115 mg/dL [facility] Interpretation and review of laboratory results Abnormal [facility] Potassium [Moles/Vol] 3.6 mmol/L 3.5 - 5.1 mmol/L [facility] Sodium [Moles/Vol] 132 mmol/L Low 136 - 145 mmol/L [facility] Urea nitrogen [Mass/Vol] 68 mg/dL High 9 - 23 mg/dL [facility] Anion gap [Moles/Vol] 11 mmol/L 3 - 13 mmol/L [facility] Calcium [Mass/Vol] 8.9 mg/dL 8.8 - 10. 0 mg/dL [facility] Chloride [Moles/Vol] 92 mmol/L Low 98 - 10 7 mmol/L [facility] CO2 [Moles/Vol] 30 mmol/L 23 - 31 mmol/L [facility] Creatinine [Mass/Vol] 1.55 mg/dL High 0.72 - 1.25 mg/dL [facility] GFR/1.73 sq M.predicted (S/P/Bld) [Vol rate/Area] 49.4 mL/min Low - PINF [facility] Glucose [Mass/Vol] 162 mg/dL High 82 - 115 mg/dL [facility] Interpretation and review of laboratory results Abnormal [facility] Potassium [Moles/Vol] 4.1 mmol/L 3.5 - 5.1 mmol/L [facility] Sodium [Moles/Vol] 133 mmol/L Low 136 - 145 mmol/L [facility] Urea nitrogen [Mass/Vol] 69 mg/dL High 9 - 23 mg/dL [facility] Anion gap [Moles/Vol] 11 mmol/L 3 - 13 mmol/L [facility] Calcium [Mass/Vol] 8.8 mg/dL 8.8 - 10. 0 mg/dL [facility] Chloride [Moles/Vol] 94 mmol/L Low 98 - 10 7 mmol/L [facility] CO2 [Moles/Vol] 30 mmol/L 23 - 31 mmol/L [facility] Creatinine [Mass/Vol] 1.53 mg/dL High 0.72 - 1.25 mg/dL [facility] GFR/1.73 sq M.predicted (S/P/Bld) [Vol rate/Area] 50.1 mL/min Low - PINF [facility] Glucose [Mass/Vol] 157 mg/dL High 82 - 115 mg/dL [facility] Interpretation and review of laboratory results Abnormal [facility] Potassium [Moles/Vol] 4.1 mmol/L 3.5 - 5.1 mmol/L [facility] Sodium [Moles/Vol] 135 mmol/L Low 136 - 145 mmol/L [facility] Urea nitrogen [Mass/Vol] 71 mg/dL High 9 - 23 mg/dL [facility] Anion gap [Moles/Vol] 13 mmol/L 3 - 13 mmol/L [facility] Calcium [Mass/Vol] 9.2 mg/dL 8.8 - 10. 0 mg/dL [facility] Chloride [Moles/Vol] 96 mmol/L Low 98 - 10 7 mmol/L [facility] CO2 [Moles/Vol] 27 mmol/L 23 - 31 mmol/L [facility] Creatinine [Mass/Vol] 1.52 mg/dL High 0.72 - 1.25 mg/dL [facility] GFR/1.73 sq M.predicted (S/P/Bld) [Vol rate/Area] 50.5 mL/min Low - PINF [facility] Glucose [Mass/Vol] 101 mg/dL 82 - 115 mg/dL [facility] Interpretation and review of laboratory results Abnormal [facility] Potassium [Moles/Vol] 4.8 mmol/L 3.5 - 5.1 mmol/L [facility] Sodium [Moles/Vol] 136 mmol/L 136 - 145 mmol/L [facility] Urea nitrogen [Mass/Vol] 64 mg/dL High 9 - 23 mg/dL [facility] CBC (HEMOGRAM)on 08-08-2024 Erythrocyte distribution width (RBC) [Ratio] 14.1 % Normal 11.5-15.0 [facility] Comment on above: Performed By: #### L [id number] ####Tempering Kiln Tender: TRACI LIZARRAGA ([id number])[facility])[address] [place] [address] Hematocrit (Bld) [Volume fraction] 31.6 % Low 40.0-52.0 [facility] Comment on above: Performed By: #### L AB294 ####Tempering Kiln Tender: TRACI LIZARRAGA ([id number])[facility])[address] [place] [address] Hemoglobin (Bld) [Mass/Vol] 10.0 g/dL Low 13.0-18.0 [facility] Comment on above: Performed By: #### L AB294 ####Tempering Kiln Tender: TRACI LIZARRAGA ([id number])[facility])[address] [place] [address] MCH (RBC) [Entitic mass] 28.8 pg Normal 26.0-34.0 [facility] Comment on above: Performed By: #### L AB294 ####Tempering Kiln Tender: TRACI LIZARRAGA ([id number])[facility])[address] [place] [address] MCHC 31.6 % Normal 30.5-36.0 [facility] Comment on above: Performed By: #### L AB294 ####Tempering Kiln Tender: TRACI LIZARRAGA ([id number])[facility])[address] [place] [address] MCV (RBC) [Entitic vol] 91.1 fL Normal 77.0-99.0 [facility] Comment on above: Performed By: #### L AB294 ####Tempering Kiln Tender: TRACI LIZARRAGA ([id number])[facility] ([facility])[address] [place] [address] Platelet mean volume (Bld) [Entitic vol] 9.8 fL Normal 9.0-12.7 [facility] Comment on above: Performed By: #### L AB294 ####Tempering Kiln Tender: TRACI LIZARRAGA ([id number])[facility] ([facility])[address] [place] [address] Platelets (Bld) [#/Vol] 165 10*3/uL Normal 140-440 [facility] Comment on above: Performed By: #### L AB294 ####Tempering Kiln Tender: TRACI LIZARRAGA ([id number])[facility] ([facility])[address] [place] [address] RBC (Bld) [#/Vol] 3.47 10*6/uL Low 4.40-5.90 [facility] Comment on above: Performed By: #### L AB294 ####Tempering Kiln Tender: TRACI LIZARRAGA ([id number])[facility] ([facility])[address] [place] [address] WBC (Bld) [#/Vol] 10.5 10*3/uL Normal 3.6-10.7 [facility] Comment on above: Performed By: #### L AB294 ####Tempering Kiln Tender: TRACI LIZARRAGA ([id number])[facility] ([facility])[address] [place] [address] CBC panel Auto (Bld)on 08-08 Erythrocyte distribution width (RBC) [Ratio] 14.1 % 11.5 - 15.0 % [facility] Hematocrit (Bld) [Volume fraction] 31.6 % Low 40.0 - 52.0 % [facility] Hemoglobin (Bld) [Mass/Vol] 10 g/dL Low 13.0 - 18.0 g/dL [facility] Interpretation and review of laboratory results Abnormal [facility] MCH (RBC) [Entitic mass] 28.8 pg 26. 0 - 34.0 pg [facility] MCHC (RBC) [Mass/Vol] 31.6 % 30.5 - 36.0 % [facility] MCV (RBC) [Entitic vol] 91.1 fL 77.0 - 99.0 fL [facility] Platelet mean volume (Bld) [Entitic vol] 9.8 fL 9.0 - 12.7 fL [facility] Platelets (Bld) [#/Vol] 165 10*3/uL 140 - 440 10*3/uL [facility] RBC (Bld) [#/Vol] 3.47 10*6/uL Low 4.40 - 5.9 0 10*6/uL [facility] WBC (Bld) [#/Vol] 10.5 10*3/uL 3.6 - 10.7 10*3/uL [facility] ECG 12-LEADon 08-08-2024 ECG 12-LEAD IMPRESSION: Probable atrial tachycardia Right bundle branch block Electronically Signed On 08-08-2024 08:33:16 EDT by [facility] ECG 12-LEAD IMPRESSION: Atrial flutter with predominant 2:1 AV block Right bundle branch block Probable inferior infarct, age indeterminate ST depr, consider ischemia, anterolateral lds Electronically Signed On 08-08-2024 08:04:43 EDT by [facility] Laboratory - Chemistry and C hemistry - challengeon 08-08-2024 Glucose [Mass/Vol] 95 mg/dL 70 - 100 mg/dL [facility] Glucose [Mass/Vol] 109 mg/dL High 70 - 100 mg/dL [facility] Glucose [Mass/Vol] 107 mg/dL High 70 - 100 mg/dL [facility] Magnesium [Mass/Vol] 2.3 mg/dL 1.6 - 2 .6 mg/dL [facility] MAGNESIUMon 08-08-2024 Magnesium [Mass/Vol] 2.3 mg/dL Normal 1.6-2.6 [facility] Comment on above: Result Comment: MELINDA Torres COMMENTS:Higher values can be expected in females during menses. Performed By: #### L AB103, LAB15 ####Tempering Kiln Tender: TRACI LIZARRAGA ([id number])[facility] ([place] [id number] [facility] Magnesium [Mass/Vol]on 08-08 Interpretation and review of laboratory results Normal [facility] No Panel Informationon 08-08 Interpretation and review of laboratory results Normal [facility] Interpretation and review of laboratory results Abnormal [facility] CV EPIPHANY [facility] P [place] 0 degrees [facility] MT Interval 0 ms [facility] QRS [place] 76 degrees [facility] QRSD Interval 167 ms [facility] QT Interval 415 ms [facility] QTC Interval 566 ms [facility] T Wave [place] -19 degrees [facility] CV EPIPHANY [facility] Interpretation and review of laboratory results Abnormal [facility] No Panel InformationOrdered By: Tonya Murray on 08-08-2024 P [place] 0 degrees [facility] Work Phone: MT Interval 0 ms [facility] Work Phone: QRS [place] 61 degrees [facility] Work Phone: QRSD Interval 167 ms [facility] Work Phone: QT Interval 445 ms [facility] Work Phone: QTC Interval 595 ms [facility] Work Phone: T Wave [place] -9 degrees [facility] Work Phone: [facility] Work Phone: Nursing Noteon 08-08-2024 Nursing Note Normal [facility] Progress Noteon 08-08-2024 Progress Note Normal [facility] Progress Note Normal [facility] Progress Note Normal [facility] Vital signsOrdered By: Samira Murray on 08-08-2024 Heart rate 107 /min bpm [facility] Work Phone: Vital signson 08-08-2024 Heart rate 112 /min bpm [facility] XR CHEST 1 VIEWon 08-08-2024 XR CHEST 1 VIEW Normal [facility] XR Chest Single viewon 08-08 [facility] Radiology Study observation (narrative) [facility] 30on 08-07-2024 30 Normal [facility] BASIC METABOLIC PANELon 07-28 Anion gap [Moles/Vol] 12 mmol/L Normal 3-13 [facility] Comment on above: Performed By: #### L AB15 ####Tempering Kiln Tender: TRACI LIZARRAGA ([id number])[facility] ([facility])[address] [place] [address] Calcium [Mass/Vol] 9.0 mg/dL Normal 8.8-10.0 [facility] Comment on above: Performed By: #### L AB15 ####Tempering Kiln Tender: TRACI LIZARRAGA ([id number])[facility] ([facility])[address] [place] [address] Chloride [Moles/Vol] 97 mmol/L Low 98-107 [facility] Comment on above: Performed By: #### L AB15 ####Tempering Kiln Tender: TRACI LIZARRAGA ([id number])[facility] [place] [address] CO2 [Moles/Vol] 24 mmol/L Normal 23-31 [facility] Comment on above: Performed By: #### L AB15 ####Tempering Kiln Tender: TRACI LIZARRAGA ([id number])[facility] ([facility])[address] [place] [address] Creatinine [Mass/Vol] 1.52 mg/dL High 0.72-1.25 [facility] Comment on above: Performed By: #### L AB15 ####Tempering Kiln Tender: TRACI LIZARRAGA ([id number])[facility] ([facility] [place] [address] [place] GLOMERULAR FILTRATION RATE ML/MIN/1.73 SQ M.PREDICTED 50.5 mL/min/1.73m*2 Low >60.0 [facility] Comment on above: Result Comment: Calc ulation based on the Chronic Kidney Disease Epidemiology Collaboration (CKD-EPI) equation refit without adjustment for race Performed By: #### L AB15 ####Tempering Kiln Tender: TRACI LIZARRAGA ([id number])[facility] [place] [address] [place] Glucose [Mass/Vol] 108 mg/dL Normal 82-115 [facility] Comment on above: Performed By: #### L AB15 ####Tempering Kiln Tender: TRACI LIZARRAGA ([id number])[facility] ([facility])[address] [place] [id number] [place] [address] Potassium [Moles/Vol] 5.1 mmol/L Normal 3.5-5.1 [facility] Comment on above: Result Comment: [facility] potassium values may be up to 0.5 mmol/L lower than serum values. Performed By: #### L AB15 ####Tempering Kiln Tender: TRACI LIZARRAGA ([id number])[facility] ([facility] [place] [address] Sodium [Moles/Vol] 133 mmol/L Low 136-145 [facility] Comment on above: Performed By: #### L AB15 ####Tempering Kiln Tender: TRACI LIZARRAGA ([id number])[facility] ([facility])[address] [place] [address] [place] Urea nitrogen [Mass/Vol] 58 mg/dL High 9-23 [facility] Comment on above: Performed By: #### L AB15 ####Tempering Kiln Tender: TRACI LIZARRAGA ([id number])[facility] ([facility] [place] [address] [place] Anion gap [Moles/Vol] 11 mmol/L Normal 3-13 [facility] Comment on above: Performed By: #### L AB15 ####Tempering Kiln Tender: TRACI LIZARRAGA ([id number])[facility] [place] [address] [place] Calcium [Mass/Vol] 8.7 mg/dL Low 8.8-10.0 [facility] Comment on above: Performed By: #### L AB15 ####Tempering Kiln Tender: TRACI LIZARRAGA ([id number])[facility])[address] [place] [address] [place] Chloride [Moles/Vol] 97 mmol/L Low 98-107 [facility] Comment on above: Performed By: #### L AB15 ####Tempering Kiln Tender: TRACI LIZARRAGA ([id number])[facility])[address] [place] [address] CO2 [Moles/Vol] 24 mmol/L Normal 23-31 [facility] Comment on above: Performed By: #### L AB15 ####Tempering Kiln Tender: TRACI LIZARRAGA ([id number])[facility])[address] [place] [address] Creatinine [Mass/Vol] 1.41 mg/dL High 0.72-1.25 [facility] Comment on above: Performed By: #### L AB15 ####Tempering Kiln Tender: TRACI LIZARRAGA ([phone])[facility])[address] [place] [address] GLOMERULAR FILTRATION RATE ML/MIN/1.73 SQ M.PREDICTED 55.3 mL/min/1.73m*2 Low >60.0 [facility] Comment on above: Result Comment: Calc ulation based on the Chronic Kidney Disease Epidemiology Collaboration (CKD-EPI) equation refit without adjustment for race Performed By: #### L AB15 ####Tempering Kiln Tender: TRACI LIZARRAGA ([id number])[facility])[address] [place] [address] Glucose [Mass/Vol] 120 mg/dL High 82-115 [facility] Comment on above: Performed By: #### L AB15 ####Tempering Kiln Tender: TRACI LIZARRAGA ([id number])[facility])[address] [place] [address] Potassium [Moles/Vol] 4.8 mmol/L Normal 3.5-5.1 [facility] Comment on above: Result Comment: [facility] potassium values may be up to 0.5 mmol/L lower than serum values. Performed By: #### L AB15 ####Tempering Kiln Tender: TRACI LIZARRAGA ([id number])[facility])[address] [place] [address] Sodium [Moles/Vol] 132 mmol/L Low 136-145 [facility] Comment on above: Performed By: #### L AB15 ####Tempering Kiln Tender: TRACI LIZARRAGA ([id number])[facility])[address] [place] [address] Urea nitrogen [Mass/Vol] 53 mg/dL High 9-23 [facility] Comment on above: Performed By: #### L AB15 ####Tempering Kiln Tender: TRACI LIZARRAGA ([id number])[facility] ([facility])[address] [place] [address] Basic metabolic 1998 panelon 08-07-2024 Anion gap [Moles/Vol] 12 mmol/L 3 - 13 mmol/L [facility] Calcium [Mass/Vol] 9 mg/dL 8.8 - 10. 0 mg/dL [facility] Chloride [Moles/Vol] 97 mmol/L Low 98 - 10 7 mmol/L [facility] CO2 [Moles/Vol] 24 mmol/L 23 - 31 mmol/L [facility] Creatinine [Mass/Vol] 1.52 mg/dL High 0.72 - 1.25 mg/dL [facility] GFR/1.73 sq M.predicted (S/P/Bld) [Vol rate/Area] 50.5 mL/min Low - PINF [facility] Glucose [Mass/Vol] 108 mg/dL 82 - 115 mg/dL [facility] Interpretation and review of laboratory results Abnormal [facility] Potassium [Moles/Vol] 5.1 mmol/L 3.5 - 5.1 mmol/L [facility] Sodium [Moles/Vol] 133 mmol/L Low 136 - 145 mmol/L [facility] Urea nitrogen [Mass/Vol] 58 mg/dL High 9 - 23 mg/dL [facility] Anion gap [Moles/Vol] 11 mmol/L 3 - 13 mmol/L [facility] Calcium [Mass/Vol] 8.7 mg/dL Low 8.8 - 10. 0 mg/dL [facility] Chloride [Moles/Vol] 97 mmol/L Low 98 - 10 7 mmol/L [facility] CO2 [Moles/Vol] 24 mmol/L 23 - 31 mmol/L [facility] Creatinine [Mass/Vol] 1.41 mg/dL High 0.72 - 1.25 mg/dL [facility] GFR/1.73 sq M.predicted (S/P/Bld) [Vol rate/Area] 55.3 mL/min Low - PINF [facility] Glucose [Mass/Vol] 120 mg/dL High 82 - 115 mg/dL [facility] Interpretation and review of laboratory results Abnormal [facility] Potassium [Moles/Vol] 4.8 mmol/L 3.5 - 5.1 mmol/L [facility] Sodium [Moles/Vol] 132 mmol/L Low 136 - 145 mmol/L [facility] Urea nitrogen [Mass/Vol] 53 mg/dL High 9 - 23 mg/dL [facility] CBC (HEMOGRAM)on 08-07-2024 Erythrocyte distribution width (RBC) [Ratio] 14.2 % Normal 11.5-15.0 [facility] Comment on above: Performed By: #### L [id number] ####Tempering Kiln Tender: TRACI LIZARRAGA ([id number])[facility])[address] [place] [address] Hematocrit (Bld) [Volume fraction] 34.8 % Low 40.0-52.0 [facility] Comment on above: Performed By: #### L AB294 ####Tempering Kiln Tender: TRACI LIZARRAGA ([id number])[facility])[address] [place] [address] Hemoglobin (Bld) [Mass/Vol] 11.1 g/dL Low 13.0-18.0 [facility] Comment on above: Performed By: #### L AB294 ####Tempering Kiln Tender: TRACI LIZARRAGA ([id number])[facility])[address] [place] [address] MCH (RBC) [Entitic mass] 29.3 pg Normal 26.0-34.0 [facility] Comment on above: Performed By: #### L AB294 ####Tempering Kiln Tender: TRACI LIZARRAGA ([id number])[facility])[address] [place] [address] MCHC 31.9 % Normal 30.5-36.0 [facility] Comment on above: Performed By: #### L AB294 ####Tempering Kiln Tender: TRACI LIZARRAGA ([id number])[facility] ([facility])[address] [place] [address] MCV (RBC) [Entitic vol] 91.8 fL Normal 77.0-99.0 [facility] Comment on above: Performed By: #### L AB294 ####Tempering Kiln Tender: TRACI LIZARRAGA ([id number])[facility] ([facility])[address] [place] [address] Platelet mean volume (Bld) [Entitic vol] 10.2 fL Normal 9.0-12.7 [facility] Comment on above: Performed By: #### L AB294 ####Tempering Kiln Tender: TRACI LIZARRAGA ([id number])[facility] ([facility])[address] [place] [address] Platelets (Bld) [#/Vol] 149 10*3/uL Normal 140-440 [facility] Comment on above: Performed By: #### L AB294 ####Tempering Kiln Tender: TRACI LIZARRAGA ([id number])[facility] ([facility])[address] [place] [address] RBC (Bld) [#/Vol] 3.79 10*6/uL Low 4.40-5.90 [facility] Comment on above: Performed By: #### L AB294 ####Tempering Kiln Tender: TRACI LIZARRAGA ([id number])[facility] ([facility])[address] [place] [address] WBC (Bld) [#/Vol] 12.8 10*3/uL High 3.6-10.7 [facility] Comment on above: Performed By: #### L AB294 ####Tempering Kiln Tender: TRACI LIZARRAGA ([id number])[facility])[address] [place] [address] CBC panel Auto (Bld)on 08-07 Erythrocyte distribution width (RBC) [Ratio] 14.2 % 11.5 - 15.0 % [facility] Hematocrit (Bld) [Volume fraction] 34.8 % Low 40.0 - 52.0 % [facility] Hemoglobin (Bld) [Mass/Vol] 11.1 g/dL Low 13.0 - 18.0 g/dL [facility] Interpretation and review of laboratory results Abnormal [facility] MCH (RBC) [Entitic mass] 29.3 pg 26. 0 - 34.0 pg [facility] MCHC (RBC) [Mass/Vol] 31.9 % 30.5 - 36.0 % [facility] MCV (RBC) [Entitic vol] 91.8 fL 77.0 - 99.0 fL [facility] Platelet mean volume (Bld) [Entitic vol] 10.2 fL 9.0 - 12.7 fL [facility] Platelets (Bld) [#/Vol] 149 10*3/uL 140 - 440 10*3/uL [facility] RBC (Bld) [#/Vol] 3.79 10*6/uL Low 4.40 - 5.9 0 10*6/uL [facility] WBC (Bld) [#/Vol] 12.8 10*3/uL High 3.6 - 10.7 10*3/uL [facility] COMPREHENSIVE METABOLIC PANE Baltazar 08-07-2024 Albumin [Mass/Vol] 4.0 g/dL Normal 3.4-4.8 [facility] Comment on above: Performed By: #### L AB17 ####Tempering Kiln Tender: TRACI LIZARRAGA ([id number])[facility] ([facility])[address] [place] [address] ALP [Catalytic activity/Vol] 193 U/L High 40-150 [facility] Comment on above: Performed By: #### L AB17 ####Tempering Kiln Tender: TRACI LIZARRAGA ([id number])[facility] ([facility])[address] [place] [address] ALT [Catalytic activity/Vol] 79 U/L High <40 [facility] Comment on above: Performed By: #### L AB17 ####Tempering Kiln Tender: TRACI LIZARRAGA ([id number])[facility] ([facility])[address] [place] [address] Anion gap [Moles/Vol] 9 mmol/L Normal 3-[address] [facility] Comment on above: Performed By: #### L AB17 ####Tempering Kiln Tender: TRACI LIZARRAGA ([id number])[facility] ([facility])[address] [place] [address] AST [Catalytic activity/Vol] 83 U/L High <34 [facility] Comment on above: Performed By: #### L AB17 ####Tempering Kiln Tender: TRACI LIZARRAGA ([id number])[facility] [place] [address] Bilirubin [Mass/Vol] 0.5 mg/dL Normal <1.2 [facility] Comment on above: Performed By: #### L AB17 ####Tempering Kiln Tender: TRACI LIZARRAGA ([id number])[facility] ([facility])[address] [place] [address] Calcium [Mass/Vol] 8.9 mg/dL Normal 8.8-10.0 [facility] Comment on above: Performed By: #### L AB17 ####Tempering Kiln Tender: TRACI LIZARRAGA ([id number])[facility] [place] [address] Chloride [Moles/Vol] 97 mmol/L Low 98-107 [facility] Comment on above: Performed By: #### L AB17 ####Tempering Kiln Tender: TRACI LIZARRAGA ([id number])[facility] ([facility])[address] [place] [address] [place] CO2 [Moles/Vol] 25 mmol/L Normal 23-31 [facility] Comment on above: Performed By: #### L AB17 ####Tempering Kiln Tender: TRACI LIZARRAGA ([id number])[facility] ([facility])[address] [place] [address] [place] Creatinine [Mass/Vol] 1.47 mg/dL High 0.72-1.[address] [facility] Comment on above: Performed By: #### L AB17 ####Tempering Kiln Tender: TRACI LIZARRAGA ([id number])[facility] [place] [address] GLOMERULAR FILTRATION RATE ML/MIN/1.73 SQ M.PREDICTED 52.6 mL/min/1.73m*2 Low >60.0 [facility] Comment on above: Result Comment: Calc ulation based on the Chronic Kidney Disease Epidemiology Collaboration (CKD-EPI) equation refit without adjustment for race Performed By: #### L AB17 ####Tempering Kiln Tender: TRACI LIZARRAGA ([id number])[facility])[address] [place] [address] Glucose [Mass/Vol] 127 mg/dL High 82-115 [facility] Comment on above: Performed By: #### L AB17 ####Tempering Kiln Tender: TRACI LIZARRAGA ([id number])[address] Potassium [Moles/Vol] 5.3 mmol/L High 3.5-5.1 [facility] Comment on above: Result Comment: [facility] potassium values may be up to 0.5 mmol/L lower than serum values. Performed By: #### L AB17 ####Tempering Kiln Tender: TRACI LIZARRAGA ([id number])[facility])[address] [place] [address] Protein [Mass/Vol] 6.9 g/dL Normal 6.4-8.3 [facility] Comment on above: Performed By: #### L AB17 ####Tempering Kiln Tender: TRACI LIZARRAGA ([id number])[facility])[address] [place] [address] [place] Sodium [Moles/Vol] 131 mmol/L Low 136-145 [facility] Comment on above: Performed By: #### L AB17 ####Tempering Kiln Tender: TRACI LIZARRAGA ([id number])[place] [address] [place] Urea nitrogen [Mass/Vol] 49 mg/dL High 9-23 [facility] Comment on above: Performed By: #### L AB17 ####Tempering Kiln Tender: TRACI [id number])[facility] [place] [address] Albumin [Mass/Vol] 4.3 g/dL Normal 3.4-4.8 [facility] Comment on above: Performed By: #### L AB17, [id number] ####Tempering Kiln Tender: TRACI LIZARRAGA ([id number])[facility] ([facility])[address] [place] [address] [place] ALP [Catalytic activity/Vol] 201 U/L High 40-150 [facility] Comment on above: Performed By: #### L AB17, [id number] ####Tempering Kiln Tender: TRACI LIZARRAGA ([id number])[facility] ([facility])[address] [place] [address] ALT [Catalytic activity/Vol] 81 U/L High <40 [facility] Comment on above: Performed By: #### L AB17, [id number] ####Tempering Kiln Tender: TRACI LIZARRAGA ([id number])[facility] ([facility])[address] [place] [address] Anion gap [Moles/Vol] 11 mmol/L Normal 3-[address] [facility] Comment on above: Performed By: #### L AB17, [id number] ####Tempering Kiln Tender: TRACI LIZARRAGA ([id number])[facility] ([facility])[address] [place] [address] [place] AST [Catalytic activity/Vol] 91 U/L High <34 [facility] Comment on above: Performed By: #### L AB17, [id number] ####Tempering Kiln Tender: TRACI LIZARRAGA ([id number])[facility] ([facility])[address] [place] [address] [place] Bilirubin [Mass/Vol] 0.6 mg/dL Normal <1.2 [facility] Comment on above: Performed By: #### L AB17, [id number] ####Tempering Kiln Tender: TRACI LIZARRAGA ([id number])[facility] ([facility])[address] [place] [address] [place] Calcium [Mass/Vol] 8.9 mg/dL Normal 8.8-10.0 [facility] Comment on above: Performed By: #### L AB17, [id number] ####Tempering Kiln Tender: TRACI LIZARRAGA ([id number])[facility] ([facility])[address] [place] [address] Chloride [Moles/Vol] 95 mmol/L Low 98-107 [facility] Comment on above: Performed By: #### L AB17, [id number] ####Tempering Kiln Tender: TRACI LIZARRAGA ([id number])[facility] [place] [address] CO2 [Moles/Vol] 25 mmol/L Normal 23-31 [facility] Comment on above: Performed By: #### L AB17, [id number] ####Tempering Kiln Tender: TRACI LIZARRAGA ([id number])[facility] ([facility])[address] [place] [address] Creatinine [Mass/Vol] 1.42 mg/dL High 0.72-1.[address] [facility] Comment on above: Performed By: #### L AB17, [id number] ####Tempering Kiln Tender: TRACI LIZARRAGA ([id number])[facility] ([facility])[address] [place] [address] GLOMERULAR FILTRATION RATE ML/MIN/1.73 SQ M.PREDICTED 54.8 mL/min/1.73m*2 Low >60.0 [facility] Comment on above: Result Comment: Calc ulation based on the Chronic Kidney Disease Epidemiology Collaboration (CKD-EPI) equation refit without adjustment for race Performed By: #### L AB17, [id number] ####Tempering Kiln Tender: TRACI LIZARRAGA ([id number])[facility] ([facility])[address] [place] [address] [place] Glucose [Mass/Vol] 134 mg/dL High 82-115 [facility] Comment on above: Performed By: #### L AB17, [id number] ####Tempering Kiln Tender: TRACI LIZARRAGA ([id number])[facility] ([facility])[address] [place] [address] [place] Potassium [Moles/Vol] 5.2 mmol/L High 3.5-5.1 [facility] Comment on above: Result Comment: [facility] potassium values may be up to 0.5 mmol/L lower than serum values. Performed By: #### L AB17, [id number] ####Tempering Kiln Tender: TRACI LIZARRAGA ([id number])[facility] ([facility])[address] [place] [address] Protein [Mass/Vol] 7.2 g/dL Normal 6.4-8.3 [facility] Comment on above: Performed By: #### L AB17, [id number] ####Tempering Kiln Tender: TRACI LIZARRAGA ([id number])[facility] ([facility])[address] [place] [address] Sodium [Moles/Vol] 131 mmol/L Low 136-145 [facility] Comment on above: Performed By: #### L AB17, [id number] ####Tempering Kiln Tender: TRACI LIZARRAGA ([id number])[facility] ([facility])[address] [place] [address] Urea nitrogen [Mass/Vol] 47 mg/dL High 9-23 [facility] Comment on above: Performed By: #### L AB17, [id number] ####Tempering Kiln Tender: TRACI LIZARRAGA ([id number])[facility])[address] [place] [address] Comprehensive metabolic 1998 panelon 08-07-2024 Albumin [Mass/Vol] 4 g/dL 3.4 - 4.8 g/dL [facility] ALP [Catalytic activity/Vol] 193 U/L High 40 - 150 U/L [facility] ALT [Catalytic activity/Vol] 79 U/L High NINF - 40 U/L [facility] Anion gap [Moles/Vol] 9 mmol/L 3 - 13 mmol/L [facility] AST [Catalytic activity/Vol] 83 U/L High NINF - 34 U/L [facility] Bilirubin [Mass/Vol] 0.5 mg/dL NINF - 1.2 mg/dL [facility] Calcium [Mass/Vol] 8.9 mg/dL 8.8 - 10. 0 mg/dL [facility] Chloride [Moles/Vol] 97 mmol/L Low 98 - 10 7 mmol/L [facility] CO2 [Moles/Vol] 25 mmol/L 23 - 31 mmol/L [facility] Creatinine [Mass/Vol] 1.47 mg/dL High 0.72 - 1.25 mg/dL [facility] GFR/1.73 sq M.predicted (S/P/Bld) [Vol rate/Area] 52.6 mL/min Low - PINF [facility] Glucose [Mass/Vol] 127 mg/dL High 82 - 115 mg/dL [facility] Interpretation and review of laboratory results Abnormal [facility] th Potassium [Moles/Vol] 5.3 mmol/L High 3.5 - 5.1 mmol/L [facility] Protein [Mass/Vol] 6.9 g/dL 6.4 - 8.3 g/dL [facility] Sodium [Moles/Vol] 131 mmol/L Low 136 - 145 mmol/L [facility] Urea nitrogen [Mass/Vol] 49 mg/dL High 9 - 23 mg/dL [facility] Albumin [Mass/Vol] 4.3 g/dL 3.4 - 4.8 g/dL [facility] ALP [Catalytic activity/Vol] 201 U/L High 40 - 150 U/L [facility] ALT [Catalytic activity/Vol] 81 U/L High NINF - 40 U/L [facility] Anion gap [Moles/Vol] 11 mmol/L 3 - 13 mmol/L [facility] AST [Catalytic activity/Vol] 91 U/L High [facility] - 34 U/L [facility] Bilirubin [Mass/Vol] 0.6 mg/dL [facility] - 1.2 mg/dL [facility] Calcium [Mass/Vol] 8.9 mg/dL 8.8 - 10. 0 mg/dL [facility] Chloride [Moles/Vol] 95 mmol/L Low 98 - 10 7 mmol/L [facility] CO2 [Moles/Vol] 25 mmol/L 23 - 31 mmol/L [facility] Creatinine [Mass/Vol] 1.42 mg/dL High 0.72 - 1.25 mg/dL [facility] GFR/1.73 sq M.predicted (S/P/Bld) [Vol rate/Area] 54.8 mL/min Low - PINF [facility] Glucose [Mass/Vol] 134 mg/dL High 82 - 115 mg/dL [facility] Interpretation and review of laboratory results Abnormal [facility] Potassium [Moles/Vol] 5.2 mmol/L High 3.5 - 5.1 mmol/L [facility] Protein [Mass/Vol] 7.2 g/dL 6.4 - 8.3 g/dL [facility] Sodium [Moles/Vol] 131 mmol/L Low 136 - 145 mmol/L [facility] Urea nitrogen [Mass/Vol] 47 mg/dL High 9 - 23 mg/dL [facility] LEGIONELLA AND STREPTOCOCCUS URINE ANTIGENon 08-07-2024 LEGIONELLA AND STREPTOCOCCUS URINE ANTIGEN Normal [facility] Comment on above: Performed By: #### L [id number] ####Tempering Kiln Tender: TRACI LIZARRAGA ([id number])[facility])[address] [place] [address] Laboratory - Chemistry and C hemistry - challengeon 08-07-2024 Glucose [Mass/Vol] 121 mg/dL High 70 - 100 mg/dL [facility] Glucose [Mass/Vol] 143 mg/dL High 70 - 100 mg/dL [facility] Glucose [Mass/Vol] 141 mg/dL High 70 - 100 mg/dL [facility] Glucose [Mass/Vol] 135 mg/dL High 70 - 100 mg/dL [facility] Magnesium [Mass/Vol] 2.3 mg/dL 1.6 - 2 .6 mg/dL [facility] MAGNESIUMon 08-07-2024 Magnesium [Mass/Vol] 2.3 mg/dL Normal 1.6-2.6 [facility] Comment on above: Result Comment: MELINDA Torres COMMENTS:Higher values can be expected in females during menses. Performed By: #### L [id number], [id number] ####Tempering Kiln Tender: TRACI LIZARRAGA ([id number])[facility] ([facility])[address] [place] [address] [place] MRSA BY PCRon 08-07-2024 MRSA BY PCR Normal [facility] Comment on above: Performed By: #### L [id number] ####Tempering Kiln Tender: TRACI LIZARRAGA ([id number])[facility] ([facility])[address] [place] [address] MRSA DNA BRIAN+probe Ql (Nose) on 08-07-2024 Interpretation and review of laboratory results Normal [facility] mecA gene Not detected Not Detected [facility] Staphylococcus aureus Not detected Not Detected [facility] Magnesium [Mass/Vol]on 08-07 Interpretation and review of laboratory results Normal [facility] No Panel Informationon 08-07 Interpretation and review of laboratory results Abnormal [facility] Interpretation and review of laboratory results Abnormal [facility] Extra Tube Hold for add-ons. [facility] Interpretation and review of laboratory results Abnormal [facility] Interpretation and review of laboratory results Abnormal [facility] No Panel InformationOrdered By: Tiffanie Pozo on 08-07-2024 Interpretation and review of laboratory results Normal [facility] Legionella pneumophila Ag Not detected No t Detected [facility] Streptococcus pneumoniae Ag Not detected Not Detected [facility] Progress Noteon 08-07-2024 Progress Note Normal [facility] Progress Note Normal [facility] RESPIRATORY PATHOGENS PANEL BY PCRon 08-07-2024 RESPIRATORY PATHOGENS PANEL BY PCR Normal [facility] Comment on above: Performed By: #### L [id number] ####Tempering Kiln Tender: TRACI LIZARRAGA ([id number])[address] Respiratory pathogens DNA an d RNA panel BRIAN+non-probe (Nph)on 08-07-2024 Adenovirus Not detected Not Detected [facility] B. pertussis DNA BRIAN+probe Ql (Unsp spec) Not detected Not Detected [facility] Bordetella parapertussis Not detected Not Detected [facility] Chlamydia pneumoniae Not detected Not Detected [facility] Coronavirus 229E Not detected Not Detected [facility] Coronavirus HKU1 Not detected Not Detected [facility] Coronavirus NL63 Not detected Not Detected [facility] Coronavirus OC43 Not detected Not Detected [facility] FLUAV RNA BRIAN+non-probe Ql (Nph) Not detected Not Detected [facility] FLUBV RNA BRIAN+non-probe Ql (Nph) Not detected Not Detected [facility] Human Metapneumovirus Not detected Not Detected [facility] Human Rhinovirus/Enterovirus Not detected Not Detected [facility] Interpretation and review of laboratory results Normal [facility] Mycoplasma pneumoniae Not detected Not Detected [facility] Parainfluenza 1 Not detected Not Detected [facility] Parainfluenza 2 Not detected Not Detected [facility] Parainfluenza 3 Not detected Not Detected [facility] Parainfluenza 4 Not detected Not Detected [facility] Respiratory Syncytial Virus Not detected Not Detected [facility] SARS-CoV-2 (COVID-19) RNA BRIAN+non-probe Ql (Nph) Not detected Not Detected [facility] XR CHEST 1 VIEWon 08-07-2024 XR CHEST 1 VIEW Normal [facility] XR Chest Single viewon 08-07 [facility] Radiology Study observation (narrative) [facility] XR Chest Single viewOrdered By: Riki Taylor on 08-07-2024 [facility] Work Phone: BASIC METABOLIC PANELon 07-28 Anion gap [Moles/Vol] 10 mmol/L Normal 3-13 [facility] Comment on above: Performed By: #### L [id number], LAB15 ####Tempering Kiln Tender: TRACI LIZARRAGA ([phone])[facility])[address] [place] [address] Calcium [Mass/Vol] 9.3 mg/dL Normal 8.8-10.0 [facility] Comment on above: Performed By: #### L AB103, LAB15 ####Tempering Kiln Tender: TRACI LIZARRAGA ([id number])[facility] ([facility])[address] [place] [address] Chloride [Moles/Vol] 98 mmol/L Normal 98-107 [facility] Comment on above: Performed By: #### L AB103, LAB15 ####Tempering Kiln Tender: TRACI LIZARRAGA ([id number])[facility])[address] [place] [address] CO2 [Moles/Vol] 21 mmol/L Low 23-31 [facility] Comment on above: Performed By: #### L AB103, LAB15 ####Tempering Kiln Tender: TRACI LIZARRAGA ([id number])[facility] [place] [address] [place] Creatinine [Mass/Vol] 1.62 mg/dL High 0.72-1.25 [facility] Comment on above: Performed By: #### L AB103, LAB15 ####Tempering Kiln Tender: TRACI LIZARRAGA ([id number])[facility] [place] [address] [place] GLOMERULAR FILTRATION RATE ML/MIN/1.73 SQ M.PREDICTED 46.8 mL/min/1.73m*2 Low >60.0 [facility] Comment on above: Result Comment: Calc ulation based on the Chronic Kidney Disease Epidemiology Collaboration (CKD-EPI) equation refit without adjustment for race Performed By: #### L AB103, LAB15 ####Tempering Kiln Tender: TRACI LIZARRAGA ([id number])[facility] ([facility])[address] [place] [address] [place] Glucose [Mass/Vol] 147 mg/dL High 82-115 [facility] Comment on above: Performed By: #### L AB103, LAB15 ####Tempering Kiln Tender: TRACI LIZARRAGA ([phone])[facility] ([facility])[address] [place] [address] [place] Potassium [Moles/Vol] 5.5 mmol/L High 3.5-5.1 [facility] Comment on above: Result Comment: [facility] potassium values may be up to 0.5 mmol/L lower than serum values. Performed By: #### L AB103, LAB15 ####Tempering Kiln Tender: TRACI LIZARRAGA ([id number])[facility])[address] [place] [address] [place] Sodium [Moles/Vol] 129 mmol/L Low 136-145 [facility] Comment on above: Performed By: #### L AB103, LAB15 ####Tempering Kiln Tender: TRACI LIZARRAGA ([id number])[facility] [place] [address] [place] Urea nitrogen [Mass/Vol] 43 mg/dL High 9-23 [facility] Comment on above: Performed By: #### L AB103, LAB15 ####Tempering Kiln Tender: TRACI LIZARRAGA ([id number])[facility] ([facility])[address] [place] [address] Basic metabolic 1998 panelOr dered By: iTsh [place] on 08-06-2024 Anion gap [Moles/Vol] 10 mmol/L 3 - 13 mmol/L [facility] Calcium [Mass/Vol] 9.3 mg/dL 8.8 - 10. 0 mg/dL [facility] Chloride [Moles/Vol] 98 mmol/L 98 - 10 7 mmol/L [facility] CO2 [Moles/Vol] 21 mmol/L Low 23 - 31 mmol/L [facility] Creatinine [Mass/Vol] 1.62 mg/dL High 0.72 - 1.25 mg/dL [facility] GFR/1.73 sq M.predicted (S/P/Bld) [Vol rate/Area] 46.8 mL/min Low - PINF [facility] Glucose [Mass/Vol] 147 mg/dL High 82 - 115 mg/dL [facility] Interpretation and review of laboratory results Abnormal [facility] Potassium [Moles/Vol] 5.5 mmol/L High 3.5 - 5.1 mmol/L [facility] Sodium [Moles/Vol] 129 mmol/L Low 136 - 145 mmol/L [facility] Urea nitrogen [Mass/Vol] 43 mg/dL High 9 - 23 mg/dL [facility] CALCIUM, IONIZEDon CALCIUM IONIZED 4.50 mg/dL Normal 4.30-5.20 [facility] Comment on above: Order Comment: Obtai n PRN and check ionized Ca level if serum Ca level less than 8.0 Performed By: #### L AB54 ####Tempering Kiln Tender: TRACI LIZARRAGA ([id number])[facility] [place] [address] PH, IONIZED CALCIUM 7.26 Low 7.31-7.46 [facility] Comment on above: Order Comment: Obtai n PRN and check ionized Ca level if serum Ca level less than 8.0 Performed By: #### L AB54 ####Tempering Kiln Tender: TRACI LIZARRAGA ([id number])[facility])[address] [place] [address] CBC (HEMOGRAM)on 08-06-2024 Erythrocyte distribution width (RBC) [Ratio] 14.1 % Normal 11.5-15.0 [facility] Comment on above: Performed By: #### L [id number] ####Tempering Kiln Tender: TRACI LIZARRAGA ([id number])[facility])[address] [place] [address] Hematocrit (Bld) [Volume fraction] 38.6 % Low 40.0-52.0 [facility] Comment on above: Performed By: #### L [id number] ####Tempering Kiln Tender: TRACI LIZARRAGA ([id number])[address] Hemoglobin (Bld) [Mass/Vol] 12.4 g/dL Low 13.0-18.0 [facility] Comment on above: Performed By: #### L [id number] ####Tempering Kiln Tender: TRACI LIZARRAGA ([id number])[facility])[address] [place] [address] MCH (RBC) [Entitic mass] 28.8 pg Normal 26.0-34.0 [facility] Comment on above: Performed By: #### L AB294 ####Tempering Kiln Tender: TRACI LIZARRAGA ([id number])[facility])[address] [place] [address] MCHC 32.1 % Normal 30.5-36.0 [facility] Comment on above: Performed By: #### L [id number] ####Tempering Kiln Tender: TRACI LIZARRAGA ([id number])[facility])[address] [place] [address] MCV (RBC) [Entitic vol] 89.8 fL Normal 77.0-99.0 [facility] Comment on above: Performed By: #### L [id number] ####Tempering Kiln Tender: TRACI LIZARRAGA ([id number])[facility] [address] Platelet mean volume (Bld) [Entitic vol] 10.8 fL Normal 9.0-12.7 [facility] Comment on above: Performed By: #### L [id number] ####Tempering Kiln Tender: TRACI LIZARRAGA ([id number])[facility] ([facility])[address] [place] [address] Platelets (Bld) [#/Vol] 151 10*3/uL Normal 140-440 [facility] Comment on above: Performed By: #### L [id number] ####Tempering Kiln Tender: TRACI LIZARRAGA ([id number])[facility])[address] [place] [address] RBC (Bld) [#/Vol] 4.30 10*6/uL Low 4.40-5.90 [facility] Comment on above: Performed By: #### L [id number] ####Tempering Kiln Tender: TRACI LIZARRAGA ([id number])[facility] ([facility])[address] [place] [address] WBC (Bld) [#/Vol] 18.5 10*3/uL High 3.6-10.7 [facility] Comment on above: Performed By: #### L [id number] ####Tempering Kiln Tender: TRACI LIZARRAGA ([id number])[facility])[address] [place] [address] CBC panel Auto (Bld)on 08-06 Erythrocyte distribution width (RBC) [Ratio] 14.1 % 11.5 - 15.0 % [facility] Hematocrit (Bld) [Volume fraction] 38.6 % Low 40.0 - 52.0 % [facility] Hemoglobin (Bld) [Mass/Vol] 12.4 g/dL Low 13.0 - 18.0 g/dL [facility] Interpretation and review of laboratory results Abnormal [facility] MCH (RBC) [Entitic mass] 28.8 pg 26. 0 - 34.0 pg [facility] MCHC (RBC) [Mass/Vol] 32.1 % 30.5 - 36.0 % [facility] MCV (RBC) [Entitic vol] 89.8 fL 77.0 - 99.0 fL [facility] Platelet mean volume (Bld) [Entitic vol] 10.8 fL 9.0 - 12.7 fL [facility] Platelets (Bld) [#/Vol] 151 10*3/uL 140 - 440 10*3/uL [facility] RBC (Bld) [#/Vol] 4.3 10*6/uL Low 4.40 - 5.9 0 10*6/uL [facility] WBC (Bld) [#/Vol] 18.5 10*3/uL High 3.6 - 10.7 10*3/uL [facility] COMPREHENSIVE METABOLIC PANE Baltazar 08-06-2024 Albumin [Mass/Vol] 3.6 g/dL Normal 3.4-4.8 [facility] Comment on above: Performed By: #### L AB17 ####Tempering Kiln Tender: TRACI LIZARRAGA ([id number])[facility])[address] [place] [address] ALP [Catalytic activity/Vol] 180 U/L High 40-150 [facility] Comment on above: Performed By: #### L AB17 ####Tempering Kiln Tender: TRACI LIZARRAGA ([id number])[address] ALT [Catalytic activity/Vol] 70 U/L High <40 [facility] Comment on above: Performed By: #### L AB17 ####Tempering Kiln Tender: TRACI [id number])[address] Anion gap [Moles/Vol] 9 mmol/L Normal 3-[address] [facility] Comment on above: Performed By: #### L AB17 ####Tempering Kiln Tender: TRACI [id number])[address] AST [Catalytic activity/Vol] 89 U/L High <34 [facility] Comment on above: Performed By: #### L AB17 ####Tempering Kiln Tender: TRACI [id number])[facility])[address] [place] [address] Bilirubin [Mass/Vol] 0.6 mg/dL Normal <1.2 [facility] Comment on above: Performed By: #### L AB17 ####Tempering Kiln Tender: TRACI LIZARRAGA ([id number])[facility] [place] [address] Calcium [Mass/Vol] 8.1 mg/dL Low 8.8-10.0 [facility] Comment on above: Performed By: #### L AB17 ####Tempering Kiln Tender: TRACI LIZARRAGA ([id number])[facility] [place] [address] Chloride [Moles/Vol] 101 mmol/L Normal 98-107 [facility] Comment on above: Performed By: #### L AB17 ####Tempering Kiln Tender: TRACI LIZARRAGA ([id number])[facility] [place] [address] CO2 [Moles/Vol] 21 mmol/L Low 23-31 [facility] Comment on above: Performed By: #### L AB17 ####Tempering Kiln Tender: TRACI LIZARRAGA ([id number])[facility] ([facility])[address] [place] [address] Creatinine [Mass/Vol] 1.15 mg/dL Normal 0.72-1.25 [facility] Comment on above: Performed By: #### L AB17 ####Tempering Kiln Tender: TRACI LIZARRAGA ([id number])[facility])[address] [place] [address] GLOMERULAR FILTRATION RATE ML/MIN/1.73 SQ M.PREDICTED 70.6 mL/min/1.73m*2 Normal >60.0 [facility] Comment on above: Result Comment: Calc ulation based on the Chronic Kidney Disease Epidemiology Collaboration (CKD-EPI) equation refit without adjustment for race Performed By: #### L AB17 ####Tempering Kiln Tender: TRACI LIZARRAGA ([id number])[facility] ([facility])[address] [place] [address] Glucose [Mass/Vol] 123 mg/dL High 82-115 [facility] Comment on above: Performed By: #### L AB17 ####Tempering Kiln Tender: TRACI LIZARRAGA ([id number])[facility])[address] [place] [address] Potassium [Moles/Vol] 4.6 mmol/L Normal 3.5-5.1 [facility] Comment on above: Result Comment: [facility] potassium values may be up to 0.5 mmol/L lower than serum values. Performed By: #### L AB17 ####Tempering Kiln Tender: TRACI LIZARRAGA ([id number])[facility])[address] [place] [address] Protein [Mass/Vol] 6.4 g/dL Normal 6.4-8.3 [facility] Comment on above: Performed By: #### L AB17 ####Tempering Kiln Tender: TRACI LIZARRAGA ([id number])[facility])[address] [place] [address] Sodium [Moles/Vol] 131 mmol/L Low 136-145 [facility] Comment on above: Performed By: #### L AB17 ####Tempering Kiln Tender: TRACI LIZARRAGA ([phone])[facility])[address] [place] [address] [place] Urea nitrogen [Mass/Vol] 42 mg/dL High 9-23 [facility] Comment on above: Performed By: #### L AB17 ####Tempering Kiln Tender: TRACI LIZARRAGA ([id number])[facility])[address] [place] [address] Albumin [Mass/Vol] 3.4 g/dL Normal 3.4-4.8 [facility] Comment on above: Performed By: #### L AB17 ####Tempering Kiln Tender: TRACI LIZARRAGA ([id number])[facility])[address] [place] [address] [place] ALP [Catalytic activity/Vol] 172 U/L High 40-150 [facility] Comment on above: Performed By: #### L AB17 ####Tempering Kiln Tender: TRACI LIZARRAGA ([id number])[facility] ([facility])[address] [place] [address] ALT [Catalytic activity/Vol] 78 U/L High <40 [facility] Comment on above: Performed By: #### L AB17 ####Tempering Kiln Tender: TRACI LIZARRAGA ([id number])[facility])[address] [place] [address] Anion gap [Moles/Vol] 11 mmol/L Normal 3-[address] [facility] Comment on above: Performed By: #### L AB17 ####Tempering Kiln Tender: TRACI LIZARRAGA ([id number])[facility])[address] [place] [address] AST [Catalytic activity/Vol] 103 U/L High <34 [facility] Comment on above: Result Comment: TCSi gnificant interference from hemolysis. Result integrity compromised. Interpret with caution. Performed By: #### L AB17 ####Tempering Kiln Tender: TRACI LIZARRAGA ([id number])[facility] ([facility])[address] [place] [address] Bilirubin [Mass/Vol] 0.5 mg/dL Normal <1.2 [facility] Comment on above: Performed By: #### L AB17 ####Tempering Kiln Tender: TRACI LIZARRAGA ([id number])[facility])[address] [place] [address] Calcium [Mass/Vol] 8.4 mg/dL Low 8.8-10.0 [facility] Comment on above: Performed By: #### L AB17 ####Tempering Kiln Tender: TRACI LIZARRAGA ([id number])[facility])[address] [place] [address] Chloride [Moles/Vol] 94 mmol/L Low 98-107 [facility] Comment on above: Performed By: #### L AB17 ####Tempering Kiln Tender: TRACI LIZARRAGA ([phone])[facility])[address] [place] [address] [place] CO2 [Moles/Vol] 22 mmol/L Low 23-31 [facility] Comment on above: Performed By: #### L AB17 ####Tempering Kiln Tender: TRACI LIZARRAGA ([id number])[facility])[address] [place] [address] Creatinine [Mass/Vol] 1.36 mg/dL High 0.72-1.25 [facility] Comment on above: Performed By: #### L AB17 ####Tempering Kiln Tender: TRACI LIZARRAGA ([id number])[facility] ([facility])[address] [place] [address] GLOMERULAR FILTRATION RATE ML/MIN/1.73 SQ M.PREDICTED 57.8 mL/min/1.73m*2 Low >60.0 [facility] Comment on above: Result Comment: Calc ulation based on the Chronic Kidney Disease Epidemiology Collaboration (CKD-EPI) equation refit without adjustment for race Performed By: #### L AB17 ####Tempering Kiln Tender: TRACI LIZARRAGA ([id number])[facility] ([facility])[address] [place] [address] Glucose [Mass/Vol] 171 mg/dL High 82-115 [facility] Comment on above: Performed By: #### L AB17 ####Tempering Kiln Tender: TRACI LIZARRAGA ([id number])[facility])[address] [place] [address] Potassium [Moles/Vol] 5.7 mmol/L High 3.5-5.1 [facility] Comment on above: Result Comment: TCSi gnificant interference from hemolysis. Result integrity compromised. Interpret with caution. Performed By: #### L AB17 ####Tempering Kiln Tender: TRACI LIZARRAGA ([id number])[facility])[address] [place] [address] Protein [Mass/Vol] 6.4 g/dL Normal 6.4-8.3 [facility] Comment on above: Result Comment: TCPo tential interference from hemolysis Performed By: #### L AB17 ####Tempering Kiln Tender: TRACI LIZARRAGA ([id number])[facility] ([facility])[address] [place] [address] Sodium [Moles/Vol] 127 mmol/L Low 136-145 [facility] Comment on above: Performed By: #### L AB17 ####Tempering Kiln Tender: TRACI LIZARRAGA ([id number])[facility] [place] [address] Urea nitrogen [Mass/Vol] 44 mg/dL High 9-23 [facility] Comment on above: Performed By: #### L AB17 ####Tempering Kiln Tender: TRACI LIZARRAGA ([id number])[facility] [place] [address] Calcium.ionized [Moles/Vol]o n 08-06-2024 Calcium.ionized (Bld) [Moles/Vol] 4.5 mg/dL 4.30 - 5.20 mg/dL [facility] Interpretation and review of laboratory results Abnormal [facility] PH, IONIZED CALCIUM 7.26 Low 7.31 - 7.46 [facility] Comprehensive metabolic 1998 panelOrdered By: Meg Warner on 08-06-2024 Albumin [Mass/Vol] 3.6 g/dL 3.4 - 4.8 g/dL [facility] ALP [Catalytic activity/Vol] 180 U/L High 40 - 150 U/L [facility] ALT [Catalytic activity/Vol] 70 U/L High [facility] - 40 U/L [facility] Anion gap [Moles/Vol] 9 mmol/L 3 - 13 mmol/L [facility] AST [Catalytic activity/Vol] 89 U/L High NINF - 34 U/L [facility] Bilirubin [Mass/Vol] 0.6 mg/dL [facility] - 1.2 mg/dL [facility] Calcium [Mass/Vol] 8.1 mg/dL Low 8.8 - 10. 0 mg/dL [facility] Chloride [Moles/Vol] 101 mmol/L 98 - 10 7 mmol/L [facility] CO2 [Moles/Vol] 21 mmol/L Low 23 - 31 mmol/L [facility] Creatinine [Mass/Vol] 1.15 mg/dL 0.72 - 1.25 mg/dL [facility] GFR/1.73 sq M.predicted (S/P/Bld) [Vol rate/Area] 70.6 mL/min - PIN[facility] Glucose [Mass/Vol] 123 mg/dL High 82 - 115 mg/dL [facility] Interpretation and review of laboratory results Abnormal [facility] Potassium [Moles/Vol] 4.6 mmol/L 3.5 - 5.1 mmol/L [facility] Protein [Mass/Vol] 6.4 g/dL 6.4 - 8.3 g/dL [facility] Sodium [Moles/Vol] 131 mmol/L Low 136 - 145 mmol/L [facility] Urea nitrogen [Mass/Vol] 42 mg/dL High 9 - 23 mg/dL [facility] Comprehensive metabolic 1998 panelon 08-06-2024 Albumin [Mass/Vol] 3.4 g/dL 3.4 - 4.8 g/dL [facility] ALP [Catalytic activity/Vol] 172 U/L High 40 - 150 U/L [facility] ALT [Catalytic activity/Vol] 78 U/L High NINF - 40 U/L [facility] Anion gap [Moles/Vol] 11 mmol/L 3 - 13 mmol/L [facility] AST [Catalytic activity/Vol] 103 U/L High [facility] - 34 U/L [facility] Bilirubin [Mass/Vol] 0.5 mg/dL [facility] - 1.2 mg/dL [facility] Calcium [Mass/Vol] 8.4 mg/dL Low 8.8 - 10. 0 mg/dL [facility] Chloride [Moles/Vol] 94 mmol/L Low 98 - 10 7 mmol/L [facility] CO2 [Moles/Vol] 22 mmol/L Low 23 - 31 mmol/L [facility] Creatinine [Mass/Vol] 1.36 mg/dL High 0.72 - 1.25 mg/dL [facility] GFR/1.73 sq M.predicted (S/P/Bld) [Vol rate/Area] 57.8 mL/min Low - PINF [facility] Glucose [Mass/Vol] 171 mg/dL High 82 - 115 mg/dL [facility] Interpretation and review of laboratory results Abnormal [facility] Potassium [Moles/Vol] 5.7 mmol/L High 3.5 - 5.1 mmol/L [facility] Protein [Mass/Vol] 6.4 g/dL 6.4 - 8.3 g/dL [facility] Sodium [Moles/Vol] 127 mmol/L Low 136 - 145 mmol/L [facility] Urea nitrogen [Mass/Vol] 44 mg/dL High 9 - 23 mg/dL [facility] Laboratory - Chemistry and C hemistry - challengeon 08-06-2024 Glucose [Mass/Vol] 144 mg/dL High 70 - 100 mg/dL [facility] Sodium (24H U) [Mass/Vol] mmol/L mmol/L [facility] Glucose [Mass/Vol] 141 mg/dL High 70 - 100 mg/dL [facility] Glucose [Mass/Vol] 181 mg/dL High 70 - 100 mg/dL [facility] Magnesium [Mass/Vol] 2.3 mg/dL 1.6 - 2 .6 mg/dL [facility] Laboratory - Chemistry and C hemistry - challengeOrdered By: Reece Horn on 08-06-2024 Specific gravity (U) [Rel density] 1.020 1.005 - 1.030 [facility] Laboratory - Chemistry and C hemistry - challengeOrdered By: Emiliano Mccabe on 08-06-2024 Osmolality [Osmolality] 285 mosm/kg [facility] MAGNESIUMon 08-06-2024 Magnesium [Mass/Vol] 2.3 mg/dL Normal 1.6-2.6 [facility] Comment on above: Result Comment: MELINDA Torres COMMENTS:Higher values can be expected in females during menses. Performed By: #### L AB103, [id number] ####Tempering Kiln Tender: TRACI LIZARRAGA ([id number])[address] Magnesium [Mass/Vol]on 08-06 Interpretation and review of laboratory results Normal [facility] No Panel Informationon 08-06 Interpretation and review of laboratory results Abnormal [facility] CREATININE, URINE 123 mg/dL 63.0 - 166.0 mg/dL [facility] SODIUM, URINE, FRACTIONAL EXCRETION [facility] SODIUM, URINE, TUBULAR REABSORPTION [facility] Interpretation and review of laboratory results Normal [facility] OSMOLALITY, URINE 560 [facility]ation and review of laboratory results Abnormal [facility] Interpretation and review of laboratory results Abnormal [facility] No Panel InformationOrdered By: Reece Horn on 08-06-2024 Interpretation and review of laboratory results Normal [facility] No Panel InformationOrdered By: Emiliano Mccabe on 08-06-2024 Interpretation and review of laboratory results Normal [facility] OSMOLALITY, SERUMon 08-07-19 25 OSMOLALITY, SERUM 285 mOsm/kg Normal 280-300 [facility] Comment on above: Performed By: #### L [id number] ####Tempering Kiln Tender: TRACI LIZARRAGA ([id number])[facility])[address] [place] [address] [place] OSMOLALITY, URINEon 08-07-19 25 OSMOLALITY, URINE 560 mOsm/kg Normal 300-1000 [facility] Comment on above: Performed By: #### L [id number] ####Tempering Kiln Tender: TRACI LIZARRAGA ([id number])[facility])[address] [place] [address] Progress Noteon 08-06-2024 Progress Note Normal [facility] Progress Note Normal [facility] Progress [facility] SODIUM, URINE, RANDOMon 07-28 CREATININE, URINE 123.0 mg/dL Normal 63.0-166.0 [facility] Comment on above: Performed By: #### L [id number] ####Tempering Kiln Tender: TRACI LIZARRAGA ([id number])[address] SODIUM, URINE <20 Normal [facility] Comment on above: Performed By: #### L AB444 ####Tempering Kiln Tender: TRACI LIZARRAGA ([id number])[address] SODIUM, URINE, FRACTIONAL EXCRETION <0.2 Normal [facility] Comment on above: Performed By: #### L [id number] ####Tempering Kiln Tender: TRACI LIZARRAGA ([id number])[facility] [place] [address] SODIUM, URINE, TUBULAR REABSORPTION >1.0 Normal [facility] Comment on above: Performed By: #### L [id number] ####Tempering Kiln Tender: TRACI LIZARRAGA ([id number])[facility] ([facility])[address] [place] [address] SPECIFIC GRAVITY, URINE DIPS TICKon 08-06-2024 Specific gravity (U) [Rel density] 1.020 Normal 1.005 - 1.030 [facility] Comment on above: Performed By: #### L [id number] ####Tempering Kiln Tender: TRACI LIZARRAGA ([id number])[facility] ([facility])[address] [place] [address] XR CHEST 1 VIEWon 08-06-2024 XR CHEST 1 VIEW Normal [facility] XR Chest Single viewon 08-06 [facility] RADIOLOGY [facility] Radiology Study observation (narrative) [facility] XR Chest Single viewOrdered By: Grant Duque on 08-06-2024 [facility] Work Phone: 30on 08-05-2024 30 Normal [facility] [id number] 08-05-2024 [id number] Normal [facility] BASIC METABOLIC PANELon Anion gap [Moles/Vol] 10 mmol/L Normal 3-13 [facility] Comment on above: Performed By: #### L AB15 ####Tempering Kiln Tender: TRACI LIZARRAGA ([id number])[facility] ([facility])[address] [place] [address] [place] Calcium [Mass/Vol] 8.5 mg/dL Low 8.8-10.0 [facility] Comment on above: Result Comment: TCPo tential interference from lipemia Performed By: #### L AB15 ####Tempering Kiln Tender: TRACI LIZARRAGA ([id number])[facility] ([facility])[address] [place] [address] Chloride [Moles/Vol] 103 mmol/L Normal 98-107 [facility] Comment on above: Performed By: #### L AB15 ####Tempering Kiln Tender: TRACI LIZARRAGA ([id number])[facility] ([facility])[address] [place] [address] CO2 [Moles/Vol] 17 mmol/L Low 23-31 [facility] Comment on above: Performed By: #### L AB15 ####Tempering Kiln Tender: TRACI LIZARRAGA ([id number])[facility] ([facility])[address] [place] [address] Creatinine [Mass/Vol] 1.53 mg/dL High 0.72-1.[address] [facility] Comment on above: Result Comment: TCPo tential interference from lipemia Performed By: #### L AB15 ####Tempering Kiln Tender: TRACI LIZARRAGA ([id number])[facility] ([facility])[address] [place] [address] GLOMERULAR FILTRATION RATE ML/MIN/1.73 SQ M.PREDICTED 50.1 mL/min/1.73m*2 Low >60.0 [facility] Comment on above: Result Comment: Calc ulation based on the Chronic Kidney Disease Epidemiology Collaboration (CKD-EPI) equation refit without adjustment for race Performed By: #### L AB15 ####Tempering Kiln Tender: TRACI LIZARRAGA ([id number])[facility] ([facility])[address] [place] [address] Glucose [Mass/Vol] 127 mg/dL High 82-115 [facility] Comment on above: Performed By: #### L AB15 ####Tempering Kiln Tender: TRACI LIZARRAGA ([id number])[facility] ([facility])[address] [place] [address] Potassium [Moles/Vol] 4.5 mmol/L Normal 3.5-5.[address] [facility] Comment on above: Performed By: #### L AB15 ####Tempering Kiln Tender: TRACI LIZARRAGA ([id number])[facility])[address] [place] [address] Sodium [Moles/Vol] 130 mmol/L Low 136-145 [facility] Comment on above: Performed By: #### L AB15 ####Tempering Kiln Tender: TRACI LIZARRAGA ([id number])[facility] [place] [address] Urea nitrogen [Mass/Vol] 28 mg/dL High 9-23 [facility] Comment on above: Performed By: #### L AB15 ####Tempering Kiln Tender: TRACI LIZARRAGA ([id number])[facility] [place] [address] Anion gap [Moles/Vol] 9 mmol/L Normal 3-[address] [facility] Comment on above: Performed By: #### L AB15, [id number] ####Tempering Kiln Tender: TRACI LIZARRAGA ([id number])[facility] ([facility])[address] [place] [address] Calcium [Mass/Vol] 8.9 mg/dL Normal 8.8-10.0 [facility] Comment on above: Performed By: #### L AB15, [id number] ####Tempering Kiln Tender: TRACI LIZARRAGA ([id number])[facility] [place] [address] Chloride [Moles/Vol] 102 mmol/L Normal 98-107 [facility] Comment on above: Performed By: #### L AB15, [id number] ####Tempering Kiln Tender: TRACI LIZARRAGA ([id number])[facility] [place] [address] [place] CO2 [Moles/Vol] 19 mmol/L Low 23-31 [facility] Comment on above: Performed By: #### L AB15, [id number] ####Tempering Kiln Tender: TRACI LIZARRAGA ([id number])[facility] ([facility])[address] [place] [address] [place] Creatinine [Mass/Vol] 1.31 mg/dL High 0.72-1.[address] [facility] Comment on above: Performed By: #### L AB15, [id number] ####Tempering Kiln Tender: TRACI LIZARRAGA ([id number])[facility] GLOMERULAR FILTRATION RATE ML/MIN/1.73 SQ M.PREDICTED 60.4 mL/min/1.73m*2 Normal >60.0 [facility] Comment on above: Result Comment: Calc ulation based on the Chronic Kidney Disease Epidemiology Collaboration (CKD-EPI) equation refit without adjustment for race Performed By: #### L AB15, [id number] ####Tempering Kiln Tender: TRACI LIZARRAGA ([id number])[facility])[address] [place] [address] Glucose [Mass/Vol] 146 mg/dL High 82-115 [facility] Comment on above: Performed By: #### L AB15, [id number] ####Tempering Kiln Tender: TRACI LIZARRAGA ([id number])[address] Potassium [Moles/Vol] 4.8 mmol/L Normal 3.5-5.1 [facility] Comment on above: Result Comment: [facility] potassium values may be up to 0.5 mmol/L lower than serum values. Performed By: #### L AB15, [id number] ####Tempering Kiln Tender: TRACI LIZARRAGA ([id number])[address] Sodium [Moles/Vol] 130 mmol/L Low 136-145 [facility] Comment on above: Performed By: #### L AB15, [id number] ####Tempering Kiln Tender: TRACI LIZARRAGA ([id number])[address] Urea nitrogen [Mass/Vol] 26 mg/dL High 9-23 [facility] Comment on above: Performed By: #### L AB15, [id number] ####Tempering Kiln Tender: TRACI LIZARRAGA ([id number])[address] Basic metabolic 1998 panelon 08-05-2024 Anion gap [Moles/Vol] 10 mmol/L 3 - 13 mmol/L [facility] Calcium [Mass/Vol] 8.5 mg/dL Low 8.8 - 10. 0 mg/dL [facility] Chloride [Moles/Vol] 103 mmol/L 98 - 10 7 mmol/L [facility] CO2 [Moles/Vol] 17 mmol/L Low 23 - 31 mmol/L [facility] Creatinine [Mass/Vol] 1.53 mg/dL High 0.72 - 1.25 mg/dL [facility] GFR/1.73 sq M.predicted (S/P/Bld) [Vol rate/Area] 50.1 mL/min Low - PINF [facility] Glucose [Mass/Vol] 127 mg/dL High 82 - 115 mg/dL [facility] Interpretation and review of laboratory results Abnormal [facility] Potassium [Moles/Vol] 4.5 mmol/L 3.5 - 5.1 mmol/L [facility] Sodium [Moles/Vol] 130 mmol/L Low 136 - 145 mmol/L [facility] Urea nitrogen [Mass/Vol] 28 mg/dL High 9 - 23 mg/dL [facility] CALCIUM, IONIZEDon CALCIUM IONIZED 4.40 mg/dL Normal 4.30-5.20 [facility] Comment on above: Order Comment: Obtai n PRN and check ionized Ca level if serum Ca level less than 8.0 Performed By: #### L AB54 ####Tempering Kiln Tender: TRACI LIZARRAGA ([id number])[address] PH, IONIZED CALCIUM 7.37 Normal 7.31-7.46 [facility] Comment on above: Order Comment: Obtai n PRN and check ionized Ca level if serum Ca level less than 8.0 Performed By: #### L AB54 ####Tempering Kiln Tender: TRACI LIZARRAGA ([id number])[facility] ([facility])[address] [place] [address] CBC (HEMOGRAM)on 08-05-2024 Erythrocyte distribution width (RBC) [Ratio] 14.1 % Normal 11.5-15.0 [facility] Comment on above: Performed By: #### L AB294 ####Tempering Kiln Tender: TRACI LIZARRAGA ([id number])[facility] ([address] Hematocrit (Bld) [Volume fraction] 34.3 % Low 40.0-52.0 [facility] Comment on above: Performed By: #### L AB294 ####Tempering Kiln Tender: TRACI LIZARRAGA ([id number])[facility])[address] [place] [address] Hemoglobin (Bld) [Mass/Vol] 11.4 g/dL Low 13.0-18.0 [facility] Comment on above: Performed By: #### L AB294 ####Tempering Kiln Tender: TRACI LIZARRAGA ([id number])[facility])[address] [place] [address] IPF 4 Normal [facility] Comment on above: Performed By: #### L AB294 ####Tempering Kiln Tender: TRACI LIZARRAGA ([id number])[facility])[address] [place] [address] MCH (RBC) [Entitic mass] 29.4 pg Normal 26.0-34.0 [facility] Comment on above: Performed By: #### L AB294 ####Tempering Kiln Tender: TRACI LIZARRAGA ([id number])[facility])[address] [place] [address] MCHC 33.2 % Normal 30.5-36.0 [facility] Comment on above: Performed By: #### L AB294 ####Tempering Kiln Tender: TRACI LIZARRAGA ([id number])[facility])[address] [place] [address] MCV (RBC) [Entitic vol] 88.4 fL Normal 77.0-99.0 [facility] Comment on above: Performed By: #### L AB294 ####Tempering Kiln Tender: TRACI LIZARRAGA ([id number])[facility])[address] [place] [address] Platelet mean volume (Bld) [Entitic vol] 10.3 fL Normal 9.0-12.7 [facility] Comment on above: Performed By: #### L AB294 ####Tempering Kiln Tender: TRACI LIZARRAGA ([id number])[facility] [place] [address] Platelets (Bld) [#/Vol] 127 10*3/uL Low 140-440 [facility] Comment on above: Performed By: #### L AB294 ####Tempering Kiln Tender: TRACI LIZARRAGA ([id number])[facility] [place] [address] RBC (Bld) [#/Vol] 3.88 10*6/uL Low 4.40-5.90 [facility] Comment on above: Performed By: #### L AB294 ####Tempering Kiln Tender: TRACI LIZARRAGA ([id number])[facility] [place] [address] WBC (Bld) [#/Vol] 17.6 10*3/uL High 3.6-10.7 [facility] Comment on above: Performed By: #### L AB294 ####Tempering Kiln Tender: TRACI LIZARRAGA ([id number])[facility] ([facility])[address] [place] [address] ECG 12-LEADon 08-05-2024 ECG 12-LEAD IMPRESSION: Atrial fibrillation Right bundle branch block Electronically Signed On 08-05-2024 11:18:11 EDT by [facility] ECG 12-LEAD IMPRESSION: Sinus initially then ectopic atrial rhythm Right bundle branch block Inferior infarct, acute Electronically Signed On 08-05-2024 11:10:13 EDT by [facility] Laboratory - Chemistry and C hemistry - challengeon 08-05-2024 Glucose [Mass/Vol] 192 mg/dL High 70 - 100 mg/dL [facility] Glucose [Mass/Vol] 214 mg/dL High 70 - 100 mg/dL [facility] Glucose [Mass/Vol] 179 mg/dL High 70 - 100 mg/dL [facility] Glucose [Mass/Vol] 164 mg/dL High 70 - 100 mg/dL [facility] MAGNESIUMon 08-05-2024 Magnesium [Mass/Vol] 2.4 mg/dL Normal 1.6-2.6 [facility] Comment on above: Result Comment: ORDE R COMMENTS:Higher values can be expected in females during menses. Performed By: #### L AB15, [id number] ####Tempering Kiln Tender: TRACI LIZARRAGA ([id number])[facility])[address] [place] [address] No Panel Informationon 08-05 Interpretation and review of laboratory results Abnormal [facility] Interpretation and review of laboratory results Abnormal [facility] Interpretation and review of laboratory results Abnormal [facility] Interpretation and review of laboratory results Abnormal [facility] No Panel InformationOrdered By: Benjamin Haynes on 08-05-2024 P [place] 0 degrees [facility] [employer] Work Phone: QRSD Interval 139 ms [facility] [employer] Work Phone: QT Interval 359 ms [facility] [employer] Work Phone: QTC Interval 519 ms [facility] Work Phone: Progress Noteon 08-05-2024 Progress Note Normal [facility] Progress Note Normal [facility] Progress Note Normal [facility] Progress Note [facility] Vital signsOrdered By: Himanshu Haynes on 08-05-2024 Heart rate 125 /min bpm [facility] [employer] Work Phone: XR CHEST 1 VIEWon 08-05-2024 XR CHEST 1 VIEW Normal [facility] BASIC METABOLIC PANELon Anion gap [Moles/Vol] 9 mmol/L Normal 3-[address] [facility] Comment on above: Performed By: #### L AB15 ####Tempering Kiln Tender: TRACI LIZARRAGA ([id number])[facility] ([facility])[address] [place] [address] Calcium [Mass/Vol] 8.5 mg/dL Low 8.8-10.0 [facility] Comment on above: Performed By: #### L AB15 ####Tempering Kiln Tender: TRACI LIZARRAGA ([id number])[facility] ([facility])[address] [place] [address] Chloride [Moles/Vol] 103 mmol/L Normal 98-107 [facility] Comment on above: Performed By: #### L AB15 ####Tempering Kiln Tender: TRACI LIZARRAGA ([id number])[facility])[address] [place] [address] CO2 [Moles/Vol] 21 mmol/L Low 23-31 [facility] Comment on above: Performed By: #### L AB15 ####Tempering Kiln Tender: TRACI LIZARRAGA ([id number])[facility])[address] [place] [address] Creatinine [Mass/Vol] 1.20 mg/dL Normal 0.72-1.25 [facility] Comment on above: Performed By: #### L AB15 ####Tempering Kiln Tender: TRACI LIZARRAGA ([id number])[facility])[address] [place] [address] GLOMERULAR FILTRATION RATE ML/MIN/1.73 SQ M.PREDICTED 67.1 mL/min/1.73m*2 Normal >60.0 [facility] Comment on above: Result Comment: Calc ulation based on the Chronic Kidney Disease Epidemiology Collaboration (CKD-EPI) equation refit without adjustment for race Performed By: #### L AB15 ####Tempering Kiln Tender: TRACI LIZARRAGA ([id number])[facility])[address] [place] [address] Glucose [Mass/Vol] 122 mg/dL High 82-115 [facility] Comment on above: Performed By: #### L AB15 ####Tempering Kiln Tender: TRACI LIZARRAGA ([id number])[facility])[address] [place] [address] Potassium [Moles/Vol] 4.2 mmol/L Normal 3.5-5.1 [facility] Comment on above: Result Comment: [facility] potassium values may be up to 0.5 mmol/L lower than serum values. Performed By: #### L AB15 ####Tempering Kiln Tender: TRACI LIZARRAGA ([id number])[facility] [place] [address] [place] Sodium [Moles/Vol] 133 mmol/L Low 136-145 [facility] Comment on above: Performed By: #### L AB15 ####Tempering Kiln Tender: TRACI LIZARRAGA ([id number])[facility] [place] [address] Urea nitrogen [Mass/Vol] 22 mg/dL Normal 9-23 [facility] Comment on above: Performed By: #### L AB15 ####Tempering Kiln Tender: TRACI LIZARRAGA ([id number])[facility] ([facility])[address] [place] [address] Anion gap [Moles/Vol] 7 mmol/L Normal 3-13 [facility] Comment on above: Performed By: #### L AB15 ####Tempering Kiln Tender: TRACI LIZARRAGA ([id number])[facility] ([facility])[address] [place] [address] Calcium [Mass/Vol] 8.2 mg/dL Low 8.8-10.0 [facility] Comment on above: Performed By: #### L AB15 ####Tempering Kiln Tender: TRACI LIZARRAGA ([id number])[facility] [place] [address] [place] Chloride [Moles/Vol] 105 mmol/L Normal 98-107 [facility] Comment on above: Performed By: #### L AB15 ####Tempering Kiln Tender: TRACI LIZARRAGA ([id number])[facility] [place] [address] [place] CO2 [Moles/Vol] 21 mmol/L Low 23-31 [facility] Comment on above: Performed By: #### L AB15 ####Tempering Kiln Tender: TRACI LIZARRAGA ([id number])[facility] [place] [address] [place] Creatinine [Mass/Vol] 1.16 mg/dL Normal 0.72-1.25 [facility] Comment on above: Performed By: #### L AB15 ####Tempering Kiln Tender: TRACI LIZARRAGA ([id number])[facility])[address] [place] [address] GLOMERULAR FILTRATION RATE ML/MIN/1.73 SQ M.PREDICTED 69.9 mL/min/1.73m*2 Normal >60.0 [facility] Comment on above: Result Comment: Calc ulation based on the Chronic Kidney Disease Epidemiology Collaboration (CKD-EPI) equation refit without adjustment for race Performed By: #### L AB15 ####Tempering Kiln Tender: TRACI LIZARRAGA ([id number])[facility])[address] [place] [address] Glucose [Mass/Vol] 155 mg/dL High 82-115 [facility] Comment on above: Performed By: #### L AB15 ####Tempering Kiln Tender: TRACI LIZARRAGA ([id number])[facility])[address] [place] [address] Potassium [Moles/Vol] 4.5 mmol/L Normal 3.5-5.1 [facility] Comment on above: Result Comment: [facility] potassium values may be up to 0.5 mmol/L lower than serum values. Performed By: #### L AB15 ####Tempering Kiln Tender: TRACI LIZARRAGA ([id number])[facility] [facility])[address] [place] [address] Sodium [Moles/Vol] 133 mmol/L Low 136-145 [facility] Comment on above: Performed By: #### L AB15 ####Tempering Kiln Tender: TRACI LIZARRAGA ([phone])[facility])[address] [place] [address] Urea nitrogen [Mass/Vol] 19 mg/dL Normal 9-23 [facility] Comment on above: Performed By: #### L AB15 ####Tempering Kiln Tender: TRACI LIZARRAGA ([id number])[facility])[address] [place] [address] Anion gap [Moles/Vol] 7 mmol/L Normal 3-13 [facility] Comment on above: Performed By: #### L AB15 ####Tempering Kiln Tender: TRACI LIZARRAGA ([phone])[facility] [place] [address] Calcium [Mass/Vol] 8.2 mg/dL Low 8.8-10.0 [facility] Comment on above: Performed By: #### L AB15 ####Tempering Kiln Tender: TRACI LIZARRAGA ([id number])[facility] [place] [address] [place] Chloride [Moles/Vol] 109 mmol/L High 98-107 [facility] Comment on above: Performed By: #### L AB15 ####Tempering Kiln Tender: TRACI LIZARRAGA ([id number])[facility] [place] [address] CO2 [Moles/Vol] 20 mmol/L Low 23-31 [facility] Comment on above: Performed By: #### L AB15 ####Tempering Kiln Tender: TRACI LIZARRAGA ([id number])[facility] [place] [address] Creatinine [Mass/Vol] 1.12 mg/dL Normal 0.72-1.25 [facility] Comment on above: Performed By: #### L AB15 ####Tempering Kiln Tender: TRACI LIZARRAGA ([phone])[facility] ([facility])[address] [place] [address] [place] GLOMERULAR FILTRATION RATE ML/MIN/1.73 SQ M.PREDICTED 72.9 mL/min/1.73m*2 Normal >60.0 [facility] Comment on above: Result Comment: Calc ulation based on the Chronic Kidney Disease Epidemiology Collaboration (CKD-EPI) equation refit without adjustment for race Performed By: #### L AB15 ####Tempering Kiln Tender: TRACI LIZARRAGA ([id number])[facility] [place] [address] [place] Glucose [Mass/Vol] 200 mg/dL High 82-115 [facility] Comment on above: Performed By: #### L AB15 ####Tempering Kiln Tender: TRACI LIZARRAGA ([id number])[facility] ([facility])[address] [place] [address] Potassium [Moles/Vol] 4.8 mmol/L Normal 3.5-5.1 [facility] Comment on above: Result Comment: [facility] potassium values may be up to 0.5 mmol/L lower than serum values. Performed By: #### L AB15 ####Tempering Kiln Tender: TRACI LIZARRAGA ([phone])[facility] ([facility])[address] [place] [address] Sodium [Moles/Vol] 136 mmol/L Normal 136-145 [facility] Comment on above: Performed By: #### L AB15 ####Tempering Kiln Tender: TRACI LIZARRAGA ([phone])[facility] ([facility])[address] [place] [address] Urea nitrogen [Mass/Vol] 16 mg/dL Normal 9-23 [facility] Comment on above: Performed By: #### L AB15 ####Tempering Kiln Tender: TRACI LIZARRAGA ([id number])[facility] ([facility])[address] [place] [address] Anion gap [Moles/Vol] 7 mmol/L Normal 3-13 [facility] Comment on above: Performed By: #### L AB15 ####Tempering Kiln Tender: TRACI LIZARRAGA ([id number])[facility] ([facility])[address] [place] [address] Calcium [Mass/Vol] 8.2 mg/dL Low 8.8-10.0 [facility] Comment on above: Performed By: #### L AB15 ####Tempering Kiln Tender: TRACI LIZARRAGA ([id number])[facility])[address] [place] [address] Chloride [Moles/Vol] 108 mmol/L High 98-107 [facility] Comment on above: Performed By: #### L AB15 ####Tempering Kiln Tender: TRACI LIZARRAGA ([phone])[facility])[address] [place] [address] [place] CO2 [Moles/Vol] 20 mmol/L Low 23-31 [facility] Comment on above: Performed By: #### L AB15 ####Tempering Kiln Tender: TRACI LIZARRAGA ([id number])[facility])[address] [place] [address] Creatinine [Mass/Vol] 1.17 mg/dL Normal 0.72-1.25 [facility] Comment on above: Performed By: #### L AB15 ####Tempering Kiln Tender: TRACI LIZARRAGA ([phone])[facility])[address] [place] [address] GLOMERULAR FILTRATION RATE ML/MIN/1.73 SQ M.PREDICTED 69.2 mL/min/1.73m*2 Normal >60.0 [facility] Comment on above: Result Comment: Calc ulation based on the Chronic Kidney Disease Epidemiology Collaboration (CKD-EPI) equation refit without adjustment for race Performed By: #### L AB15 ####Tempering Kiln Tender: TRACI LIZARRAGA ([id number])[facility] ([facility])[address] [place] [address] [place] Glucose [Mass/Vol] 172 mg/dL High 82-115 [facility] Comment on above: Performed By: #### L AB15 ####Tempering Kiln Tender: TRACI LIZARRAGA ([id number])[facility])[address] [place] [address] Potassium [Moles/Vol] 5.8 mmol/L High 3.5-5.1 [facility] Comment on above: Result Comment: [facility] potassium values may be up to 0.5 mmol/L lower than serum values. Performed By: #### L AB15 ####Tempering Kiln Tender: TRACI LIZARRAGA ([phone])[facility])[address] [place] [address] Sodium [Moles/Vol] 135 mmol/L Low 136-145 [facility] Comment on above: Performed By: #### L AB15 ####Tempering Kiln Tender: TRACI LIZARRAGA ([id number])[facility] ([facility])[address] [place] [address] [place] Urea nitrogen [Mass/Vol] 16 mg/dL Normal 9-23 [facility] Comment on above: Performed By: #### L AB15 ####Tempering Kiln Tender: TRACI LIZARRAGA ([id number])[facility] [place] [address] [place] Anion gap [Moles/Vol] 11 mmol/L Normal 3-[address] [facility] Comment on above: Performed By: #### L AB15, [id number] ####Tempering Kiln Tender: TRACI LIZARRAGA ([phone])[facility])[address] [place] [address] Calcium [Mass/Vol] 8.2 mg/dL Low 8.8-10.0 [facility] Comment on above: Performed By: #### L AB15, [id number] ####Tempering Kiln Tender: TRACI LIZARRAGA ([id number])[facility])[address] [place] [address] [place] Chloride [Moles/Vol] 109 mmol/L High 98-107 [facility] Comment on above: Performed By: #### L AB15, [id number] ####Tempering Kiln Tender: TRACI LIZARRAGA ([phone])[facility] ([facility])[address] [place] [address] [place] CO2 [Moles/Vol] 16 mmol/L Low 23-31 [facility] Comment on above: Performed By: #### L AB15, [id number] ####Tempering Kiln Tender: TRACI LIZARRAGA ([id number])[facility])[address] [place] [address] [place] Creatinine [Mass/Vol] 1.14 mg/dL Normal 0.72-1.[address] [facility] Comment on above: Performed By: #### L AB15, [id number] ####Tempering Kiln Tender: TRACI LIZARRAGA ([id number])[facility] ([facility])[address] [place] [address] [place] GLOMERULAR FILTRATION RATE ML/MIN/1.73 SQ M.PREDICTED 71.4 mL/min/1.73m*2 Normal >60.0 [facility] Comment on above: Result Comment: Calc ulation based on the Chronic Kidney Disease Epidemiology Collaboration (CKD-EPI) equation refit without adjustment for race Performed By: #### L AB15, [id number] ####Tempering Kiln Tender: TRACI LIZARRAGA ([phone])[facility])[address] [place] [address] Glucose [Mass/Vol] 166 mg/dL High 82-115 [facility] Comment on above: Performed By: #### L AB15, [id number] ####Tempering Kiln Tender: TRACI LIZARRAGA ([id number])[address] Potassium [Moles/Vol] 6.0 mmol/L High 3.5-5.1 [facility] Comment on above: Result Comment: [facility] potassium values may be up to 0.5 mmol/L lower than serum values. Performed By: #### L AB15, [id number] ####Tempering Kiln Tender: TRACI LIZARRAGA ([id number])[facility] ([facility])[address] [place] [address] Sodium [Moles/Vol] 136 mmol/L Normal 136-145 [facility] Comment on above: Performed By: #### L AB15, [id number] ####Tempering Kiln Tender: TRACI LIZARRAGA ([phone])[facility])[address] [place] [address] Urea nitrogen [Mass/Vol] 16 mg/dL Normal 9-23 [facility] Comment on above: Performed By: #### L AB15, [id number] ####Tempering Kiln Tender: TRACI LIZARRAGA ([id number])[facility])[address] [place] [address] BLOOD GAS ARTERIALon 025 AMOUNT OF OXYGEN 4 Normal [facility] Comment on above: Order Comment: 30 mi n after vent changes Performed By: #### L AB76 ####Tempering Kiln Tender: TRACI LIZARRAGA ([id number])[facility])[address] [place] [address] Base excess Calc (Bld) [Moles/Vol] -2.4000 mmol/L Normal -3.0-3.0 [facility] Comment on above: Order Comment: 30 mi n after vent changes Performed By: #### L AB76 ####Tempering Kiln Tender: TRACI LIZARRAGA ([id number])[facility] ([facility])[address] [place] [address] CO2 [Moles/Vol] 20.6 mmol/L Low 23.0-27.0 [facility] Comment on above: Order Comment: 30 mi n after vent changes Performed By: #### L AB76 ####Tempering Kiln Tender: TRACI LIZARRAGA ([phone])[facility])[address] [place] [address] HCO3 (Bld) [Moles/Vol] 19.8 mmol/L Low 21.0-25.0 [facility] Comment on above: Order Comment: 30 mi n after vent changes Performed By: #### L AB76 ####Tempering Kiln Tender: TRACI LIZARRAGA ([id number])[facility] ([facility])[address] [place] [address] Hemoglobin (Bld) [Mass/Vol] 11.7 g/dL Normal Screen only [facility] Comment on above: Order Comment: 30 mi n after vent changes Performed By: #### L AB76 ####Tempering Kiln Tender: TRACI LIZARRAGA ([id number])[facility] ([facility])[address] [place] [address] OXYGEN SATURATION (%) IN ARTERIAL BLOOD 94.6 % Low 95.0-100.0 [facility] Comment on above: Order Comment: 30 mi n after vent changes Performed By: #### L AB76 ####Tempering Kiln Tender: TRACI LIZARRAGA ([phone])[facility] ([facility])[address] [place] [address] PCO2 ARTERIAL 26.8 mm Hg Low >35.0-<45.0 [facility] Comment on above: Order Comment: 30 mi n after vent changes Performed By: #### L AB76 ####Tempering Kiln Tender: TRACI LIZARRAGA ([id number])[facility] ([facility])[address] [place] [address] PH ARTERIAL 7.486 High 7.350-7.450 [facility] Comment on above: Order Comment: 30 mi n after vent changes Performed By: #### L AB76 ####Tempering Kiln Tender: TRACI LIZARRAGA ([id number])[facility] ([facility])[address] [place] [address] PO2 ARTERIAL 68.9 mm Hg Low 80.0-100.0 [facility] Comment on above: Order Comment: 30 mi n after vent changes Performed By: #### L AB76 ####Tempering Kiln Tender: TRACI LIZARRAGA ([id number])[facility] ([facility])[address] [place] [address] SOURCE OF OXYGEN Nasal Cannula (LPM) Normal [facility] Comment on above: Order Comment: 30 mi n after vent changes Performed By: #### L AB76 ####Tempering Kiln Tender: TRACI LIZARRAGA ([id number])[facility] ([facility])[address] [place] [address] CALCIUM, IONIZEDon 5 CALCIUM IONIZED 4.10 mg/dL Low 4.30-5.20 [facility] Comment on above: Order Comment: Obtai n PRN and check ionized Ca level if serum Ca level less than 8.0 Performed By: #### L AB54 ####Tempering Kiln Tender: TRACI LIZARRAGA ([id number])[facility] ([facility])[address] [place] [address] PH, IONIZED CALCIUM 7.46 Normal 7.31-7.46 [facility] Comment on above: Order Comment: Obtai n PRN and check ionized Ca level if serum Ca level less than 8.0 Performed By: #### L AB54 ####Tempering Kiln Tender: TRACI LIZARRAGA ([id number])[facility] ([facility])[address] [place] [address] CALCIUM IONIZED 4.30 mg/dL Normal 4.30-5.20 [facility] Comment on above: Order Comment: Obtai n PRN and check ionized Ca level if serum Ca level less than 8.0 Performed By: #### L AB54 ####Tempering Kiln Tender: TRACI LIZARRAGA ([id number])[facility])[address] [place] [address] PH, IONIZED CALCIUM 7.36 Normal 7.31-7.46 [facility] Comment on above: Order Comment: Obtai n PRN and check ionized Ca level if serum Ca level less than 8.0 Performed By: #### L AB54 ####Tempering Kiln Tender: TRACI LIZARRAGA ([id number])[address] CALCIUM IONIZED 4.10 mg/dL Low 4.30-5.20 [facility] Comment on above: Order Comment: Obtai n PRN and check ionized Ca level if serum Ca level less than 8.0 Performed By: #### L AB54 ####Tempering Kiln Tender: TRACI LIZARRAGA ([phone])[address] PH, IONIZED CALCIUM 7.34 Normal 7.31-7.46 [facility] Comment on above: Order Comment: Obtai n PRN and check ionized Ca level if serum Ca level less than 8.0 Performed By: #### L AB54 ####Tempering Kiln Tender: TRACI LIZARRAGA ([id number])[address] CBC (HEMOGRAM)on 08-04-2024 Erythrocyte distribution width (RBC) [Ratio] 13.6 % Normal 11.5-15.0 [facility] Comment on above: Performed By: #### L AB294 ####Tempering Kiln Tender: TRACI LIZARRAGA ([id number])[address] Hematocrit (Bld) [Volume fraction] 34.6 % Low 40.0-52.0 [facility] Comment on above: Performed By: #### L AB294 ####Tempering Kiln Tender: TRACI LIZARRAGA ([id number])[facility] ([facility])[address] [place] [address] Hemoglobin (Bld) [Mass/Vol] 11.2 g/dL Low 13.0-18.0 [facility] Comment on above: Performed By: #### L AB294 ####Tempering Kiln Tender: TRACI LIZARRAGA ([id number])[facility] ([facility])[address] [place] [address] MCH (RBC) [Entitic mass] 28.8 pg Normal 26.0-34.0 [facility] Comment on above: Performed By: #### L AB294 ####Tempering Kiln Tender: TRACI LIZARRAGA ([id number])[facility])[address] [place] [address] MCHC 32.4 % Normal 30.5-36.0 [facility] Comment on above: Performed By: #### L AB294 ####Tempering Kiln Tender: TRACI LIZARRAGA ([id number])[facility] ([facility])[address] [place] [address] MCV (RBC) [Entitic vol] 88.9 fL Normal 77.0-99.0 [facility] Comment on above: Performed By: #### L AB294 ####Tempering Kiln Tender: TRACI LIZARRAGA ([id number])[facility] ([facility])[address] [place] [address] Platelet mean volume (Bld) [Entitic vol] 9.9 fL Normal 9.0-12.7 [facility] Comment on above: Performed By: #### L AB294 ####Tempering Kiln Tender: TRACI LIZARRAGA ([id number])[facility] ([facility])[address] [place] [address] Platelets (Bld) [#/Vol] 133 10*3/uL Low 140-440 [facility] Comment on above: Performed By: #### L AB294 ####Tempering Kiln Tender: TRACI LIZARRAGA ([id number])[facility] ([facility])[address] [place] [address] RBC (Bld) [#/Vol] 3.89 10*6/uL Low 4.40-5.90 [facility] Comment on above: Performed By: #### L AB294 ####Tempering Kiln Tender: TRACI LIZARRAGA ([id number])[facility] ([facility])[address] [place] [address] WBC (Bld) [#/Vol] 14.0 10*3/uL High 3.6-10.7 [facility] Comment on above: Performed By: #### L AB294 ####Tempering Kiln Tender: TRACI LIZARRAGA ([phone])[address] Consulton 08-04-2024 Consult [facility] Consult Normal [facility] ECG 12-LEADon 08-04-2024 ECG 12-LEAD IMPRESSION: Ventricular-paced rhythm Electronically Signed On 08-04-2024 13:07:[address] [facility] ECG 12-LEAD IMPRESSION: Sinus rhythm or ectopic atrial rhythm with prolonged MT iintrerval Right bundle branch block Pericarditis Electronically Signed On 08-04-2024 12:48:[address] [facility] ECG 12-LEAD IMPRESSION: Sinus rhythm Atrial premature complexes frequent Right bundle branch block Widespread ST elevation consistent with pericarditis Electronically Signed On 08-04-2024 08:47:[address] [facility] MAGNESIUMon 08-04-2024 Magnesium [Mass/Vol] 3.0 mg/dL High 1.6-2.6 [facility] Comment on above: Result Comment: ORDE R COMMENTS:Higher values can be expected in females during menses. Performed By: #### L AB15, [id number] ####Tempering Kiln Tender: TRACI LIZARRAGA ([id number])[facility] ([facility])[address] [place] [address] OSMOLALITY, URINEon 08-05-19 25 OSMOLALITY, URINE 662 mOsm/kg Normal 300-1000 [facility] Comment on above: Performed By: #### L AB444, [id number], [id number] ####Tempering Kiln Tender: TRACI LIZARRAGA ([id number])[facility])[address] [place] [address] POTASSIUM, URINE, RANDOMon 0 08-04-2024 CREATININE, URINE 198.6 mg/dL High 63.0-166.0 [facility] Comment on above: Performed By: #### L AB444, [id number], [id number] ####Tempering Kiln Tender: TRACI LIZARRAGA ([id number])[facility])[address] [place] [address] Potassium (U) [Moles/Vol] 81 mmol/L Normal [facility] Comment on above: Performed By: #### L AB444, [id number], [id number] ####Tempering Kiln Tender: TRACI LIZARRAGA ([id number])[facility])[address] [place] [address] POTASSIUM, URINE, FRACTIONAL EXCRETION 9.5 Normal [facility] Comment on above: Performed By: #### L AB444, [id number], [id number] ####Tempering Kiln Tender: TRACI LIZARRAGA ([id number])[facility])[address] [place] [address] POTASSIUM, URINE, TUBULAR REABSORPTION 0.9 Normal [facility] Comment on above: Performed By: #### L AB444, [id number], [id number] ####Tempering Kiln Tender: TRACI LIZARRAAG ([id number])[facility])[address] [place] [address] PROTIME AND APTTon aPTT Coag (Bld) [Time] 30.7 s High 20.0-30.5 [facility] Comment on above: Performed By: #### L [id number] ####Tempering Kiln Tender: TRACI LIZARRAGA ([id number])[facility])[address] [place] [address] INR Coag (PPP) [Relative time] 1.0 {INR} Normal 0.9-1.1 [facility] Comment on above: Result Comment: Leon mmended Anticoagulant Therapy: SEE BELOW----- INR of 2.0 - 3.0 : - Prophylaxis of Venous Thrombosis (high-risk surgery) - Treatment of Venous Thrombosis - Treatment of Pulmonary Embolism (Includes tissue heart valves, Acute Myocardial Infarction to prevent systemic embolism, Valvular Heart Disease, and Atrial Fibrillation)----- INR of 2.5 - 3.5 : - Mechanical Prosthetic Valves (high risk) - If oral anticoagulant therapy is used to prevent Myocardial Infarction Performed By: #### Sindy [id number] ####Tempering Kiln Tender: TRACI LIZARRAGA ([id number])[address] PT Coag (PPP) [Time] 10.6 s Normal 9.0-12.0 [facility] Comment on above: Performed By: #### Sindy [id number] ####Tempering Kiln Tender: TRACI LIZARRAGA ([id number])[facility])[address] [place] [address] Progress Noteon 08-04-2024 Progress Note Normal [facility] Progress Note Normal [facility] Progress Note Normal [facility] SODIUM, URINE, RANDOMon 05 Sodium (U) [Moles/Vol] 27 mmol/L Normal [facility] Comment on above: Performed By: #### Sindy AB444, [id number], [id number] ####Tempering Kiln Tender: TRACI LIZARRAGA ([id number])[address] SODIUM, URINE, FRACTIONAL EXCRETION 0.1 Normal [facility] Comment on above: Performed By: #### Sindy AB444, [id number], [id number] ####Tempering Kiln Tender: TRACI [id number])[address] SODIUM, URINE, TUBULAR REABSORPTION 1.0 Normal [facility] Comment on above: Performed By: #### Sindy AB444, [id number], [id number] ####Tempering Kiln Tender: TRACI LIZARRAGA ([id number])[facility] ([facility])[address] [place] [address] [place] XR CHEST 1 VIEWon 08-04-2024 XR CHEST 1 VIEW Normal [facility] XR CHEST 1 VIEW Normal [facility] [id number] 08-03-2024 [id number] Normal [facility] Anesthesia Noteon 08-03-2024 Anesthesia Note Normal [facility] BASIC METABOLIC PANELon Anion gap [Moles/Vol] 6 mmol/L Normal 3-13 [facility] Comment on above: Performed By: #### L AB103, LAB15 ####Tempering Kiln Tender: TRACI LIZARRAGA ([id number])[facility] ([facility])[address] [place] [address] Calcium [Mass/Vol] 8.9 mg/dL Normal 8.8-10.0 [facility] Comment on above: Performed By: #### L AB103, LAB15 ####Tempering Kiln Tender: TRACI LIZARRAGA ([id number])[facility] [place] [address] [place] Chloride [Moles/Vol] 109 mmol/L High 98-107 [facility] Comment on above: Performed By: #### L AB103, LAB15 ####Tempering Kiln Tender: TRACI LIZARRAGA ([id number])[facility] [place] [address] [place] CO2 [Moles/Vol] 24 mmol/L Normal 23-31 [facility] Comment on above: Performed By: #### L AB103, LAB15 ####Tempering Kiln Tender: TRACI LIZARRAGA ([id number])[facility] ([facility])[address] [place] [address] [place] Creatinine [Mass/Vol] 1.07 mg/dL Normal 0.72-1.25 [facility] Comment on above: Performed By: #### L AB103, LAB15 ####Tempering Kiln Tender: TRACI LIZARRAGA ([id number])[facility] ([facility])[address] [place] [address] GLOMERULAR FILTRATION RATE ML/MIN/1.73 SQ M.PREDICTED 77.0 mL/min/1.73m*2 Normal >60.0 [facility] Comment on above: Result Comment: Calc ulation based on the Chronic Kidney Disease Epidemiology Collaboration (CKD-EPI) equation refit without adjustment for race Performed By: #### L AB103, LAB15 ####Tempering Kiln Tender: TRACI LIZARRAGA ([id number])[facility])[address] [place] [address] Glucose [Mass/Vol] 83 mg/dL Normal 82-115 [facility] Comment on above: Performed By: #### L AB103, LAB15 ####Tempering Kiln Tender: TRACI LIZARRAGA ([id number])[address] Potassium [Moles/Vol] 4.0 mmol/L Normal 3.5-5.1 [facility] Comment on above: Result Comment: [facility] potassium values may be up to 0.5 mmol/L lower than serum values. Performed By: #### L AB103, LAB15 ####Tempering Kiln Tender: TRACI LIZARRAGA ([id number])[facility])[address] [place] [address] Sodium [Moles/Vol] 139 mmol/L Normal 136-145 [facility] Comment on above: Performed By: #### L AB103, LAB15 ####Tempering Kiln Tender: TRACI LIZARRAGA ([id number])[address] Urea nitrogen [Mass/Vol] 13 mg/dL Normal 9-23 [facility] Comment on above: Performed By: #### L AB103, LAB15 ####Tempering Kiln Tender: TRACI LIZARRAGA ([phone])[address] BLOOD GAS ARTERIALon 08-03-2 025 AMOUNT OF OXYGEN 4 Normal [facility] Comment on above: Order Comment: 30 mi n after vent changes Performed By: #### L [id number] ####Tempering Kiln Tender: TRACI LIZARRAGA ([id number])[facility] ([facility])[address] [place] [address] Base excess Calc (Bld) [Moles/Vol] -5.5000 mmol/L Low -3.0-3.0 [facility] Comment on above: Order Comment: 30 mi n after vent changes Performed By: #### L [id number] ####Tempering Kiln Tender: TRACI LIZARRAGA ([id number])[facility] ([facility] [place] [address] CO2 [Moles/Vol] 21.0 mmol/L Low 23.0-27.0 [facility] Comment on above: Order Comment: 30 mi n after vent changes Performed By: #### L [id number] ####Tempering Kiln Tender: TRACI LIZARRAGA ([id number])[facility] ([facility] [place] [address] HCO3 (Bld) [Moles/Vol] 19.8 mmol/L Low 21.0-25.0 [facility] Comment on above: Order Comment: 30 mi n after vent changes Performed By: #### L [id number] ####Tempering Kiln Tender: TRACI LIZARRAGA ([id number])[facility] ([facility])[address] [place] [address] Hemoglobin (Bld) [Mass/Vol] 11.4 g/dL Normal Screen only [facility] Comment on above: Order Comment: 30 mi n after vent changes Performed By: #### L [id number] ####Tempering Kiln Tender: TRACI LIZARRAGA ([id number])[facility] ([facility] [place] [address] OXYGEN SATURATION (%) IN ARTERIAL BLOOD 95.8 % Normal 95.0-100.0 [facility] Comment on above: Order Comment: 30 mi n after vent changes Performed By: #### L [id number] ####Tempering Kiln Tender: TRACI LIZARRAGA ([id number])[facility] ([facility] [place] [address] PCO2 ARTERIAL 38.1 mm Hg Normal >35.0-<45.0 [facility] Comment on above: Order Comment: 30 mi n after vent changes Performed By: #### L [id number] ####Tempering Kiln Tender: TRACI LIZARRAGA ([id number])[facility])[address] [place] [address] PH ARTERIAL 7.334 Low 7.350-7.450 [facility] Comment on above: Order Comment: 30 mi n after vent changes Performed By: #### L [id number] ####Tempering Kiln Tender: TRACI LIZARRAGA ([id number])[facility])[address] [place] [address] PO2 ARTERIAL 87.2 mm Hg Normal 80.0-100.0 [facility] Comment on above: Order Comment: 30 mi n after vent changes Performed By: #### L [id number] ####Tempering Kiln Tender: TRACI LIZARRAGA ([id number])[facility])[address] [place] [address] SOURCE OF OXYGEN Nasal Cannula (LPM) Normal [facility] Comment on above: Order Comment: 30 mi n after vent changes Performed By: #### L [id number] ####Tempering Kiln Tender: TRACI LIZARRAGA ([id number])[facility])[address] [place] [address] AMOUNT OF OXYGEN 50% Normal [facility] Comment on above: Performed By: #### L [id number] ####Tempering Kiln Tender: TRACI LIZARRAGA ([id number])[facility])[address] [place] [address] Base excess Calc (Bld) [Moles/Vol] -4.8000 mmol/L Low -3.0-3.0 [facility] Comment on above: Performed By: #### L [id number] ####Tempering Kiln Tender: TRACI LIZARRAGA ([id number])[facility])[address] [place] [address] CO2 [Moles/Vol] 23.4 mmol/L Normal 23.0-27.0 [facility] Comment on above: Performed By: #### L [id number] ####Tempering Kiln Tender: TRACI LIZARRAGA ([id number])[facility] ([facility] [place] [address] HCO3 (Bld) [Moles/Vol] 21.9 mmol/L Normal 21.0-25.0 [facility] Comment on above: Performed By: #### L [id number] ####Tempering Kiln Tender: TRACI LIZARRAGA ([id number])[facility] ([facility])[address] [place] [address] Hemoglobin (Bld) [Mass/Vol] 12.9 g/dL Normal Screen only [facility] Comment on above: Performed By: #### L [id number] ####Tempering Kiln Tender: TRACI LIZARRAGA ([id number])[facility] ([facility])[address] [place] [address] OXYGEN SATURATION (%) IN ARTERIAL BLOOD 97.5 % Normal 95.0-100.0 [facility] Comment on above: Performed By: #### L [id number] ####Tempering Kiln Tender: TRACI LIZARRAGA ([id number])[facility] ([facility])[address] [place] [address] PCO2 ARTERIAL 47.3 mm Hg High >35.0-<45.0 [facility] Comment on above: Performed By: #### L [id number] ####Tempering Kiln Tender: TRACI LIZARRAGA ([id number])[facility] ([facility])[address] [place] [address] PH ARTERIAL 7.284 Low 7.350-7.450 [facility] Comment on above: Performed By: #### L [id number] ####Tempering Kiln Tender: TRACI LIZARRAGA ([id number])[facility] ([facility])[address] [place] [address] PO2 ARTERIAL 120.8 mm Hg High 80.0-100.0 [facility] Comment on above: Performed By: #### L [id number] ####Tempering Kiln Tender: TRACI LIZARRAGA ([id number])[facility] ([facility])[address] [place] [address] SOURCE OF OXYGEN Ventilator Normal [facility] Comment on above: Performed By: #### L [id number] ####Tempering Kiln Tender: TRACI LIZARRAGA ([id number])[facility] ([facility])[address] [place] [address] AMOUNT OF OXYGEN 50 Normal [facility] Comment on above: Performed By: #### L [id number] ####Tempering Kiln Tender: TRACI LIZARRAGA ([id number])[facility])[address] [place] [address] Base excess Calc (Bld) [Moles/Vol] -2.2000 mmol/L Normal -3.0-3.0 [facility] Comment on above: Performed By: #### L [id number] ####Tempering Kiln Tender: TRACI LIZARRAGA ([id number])[facility])[address] [place] [address] CO2 [Moles/Vol] 27.9 mmol/L High 23.0-27.0 [facility] Comment on above: Performed By: #### L [id number] ####Tempering Kiln Tender: TRACI LIZARRAGA ([id number])[facility] ([facility])[address] [place] [address] HCO3 (Bld) [Moles/Vol] 26.0 mmol/L High 21.0-25.0 [facility] Comment on above: Performed By: #### L [id number] ####Tempering Kiln Tender: TRACI LIZARRAGA ([id number])[facility])[address] [place] [address] Hemoglobin (Bld) [Mass/Vol] 12.7 g/dL Normal Screen only [facility] Comment on above: Performed By: #### L [id number] ####Tempering Kiln Tender: TRACI LIZARRAGA ([phone])[facility])[address] [place] [address] OXYGEN SATURATION (%) IN ARTERIAL BLOOD 89.9 % Low 95.0-100.0 [facility] Comment on above: Performed By: #### L [id number] ####Tempering Kiln Tender: TRACI LIZARRAGA ([id number])[facility] ([facility])[address] [place] [address] PCO2 ARTERIAL 60.4 mm Hg High >35.0-<45.0 [facility] Comment on above: Performed By: #### L [id number] ####Tempering Kiln Tender: TRACI LIZARRAGA ([id number])[facility] ([facility])[address] [place] [address] PH ARTERIAL 7.252 Low 7.350-7.450 [facility] Comment on above: Performed By: #### L [id number] ####Tempering Kiln Tender: TRACI LIZARRAGA ([id number])[facility] ([facility])[address] [place] [address] PO2 ARTERIAL 70.4 mm Hg Low 80.0-100.0 [facility] Comment on above: Performed By: #### L [id number] ####Tempering Kiln Tender: TRACI LIZARRAGA ([id number])[facility] ([facility])[address] [place] [address] SOURCE OF OXYGEN Ventilator Normal [facility] Comment on above: Performed By: #### L [id number] ####Tempering Kiln Tender: TRACI LIZARRAGA ([id number])[facility] ([facility])[address] [place] [address] CALCIUM, IONIZEDon CALCIUM IONIZED 4.70 mg/dL Normal 4.30-5.20 [facility] Comment on above: Performed By: #### L AB54 ####Tempering Kiln Tender: TRACI LIZARRAGA ([phone])[facility] ([facility])[address] [place] [address] PH, IONIZED CALCIUM 7.28 Low 7.31-7.46 [facility] Comment on above: Performed By: #### L AB54 ####Tempering Kiln Tender: TRACI LIZARRAGA ([id number])[facility] ([facility])[address] [place] [address] CBC (HEMOGRAM)on 08-03-2024 Erythrocyte distribution width (RBC) [Ratio] 13.3 % Normal 11.5-15.0 [facility] Comment on above: Performed By: #### L [id number] ####Tempering Kiln Tender: TRACI LIZARRAGA ([id number])[facility] ([facility])[address] [place] [address] Hematocrit (Bld) [Volume fraction] 35.9 % Low 40.0-52.0 [facility] Comment on above: Performed By: #### L [id number] ####Tempering Kiln Tender: TRACI LIZARRAGA ([id number])[facility] ([facility])[address] [place] [address] Hemoglobin (Bld) [Mass/Vol] 12.1 g/dL Low 13.0-18.0 [facility] Comment on above: Performed By: #### L [id number] ####Tempering Kiln Tender: TRACI LIZARRAGA ([id number])[facility])[address] [place] [address] MCH (RBC) [Entitic mass] 29.7 pg Normal 26.0-34.0 [facility] Comment on above: Performed By: #### L [id number] ####Tempering Kiln Tender: TRACI LIZARRAGA ([id number])[facility] ([facility])[address] [place] [address] MCHC 33.7 % Normal 30.5-36.0 [facility] Comment on above: Performed By: #### L [id number] ####Tempering Kiln Tender: TRACI LIZARRAGA ([id number])[facility])[address] [place] [address] MCV (RBC) [Entitic vol] 88.0 fL Normal 77.0-99.0 [facility] Comment on above: Performed By: #### L [id number] ####Tempering Kiln Tender: TRACI LIZARRAGA ([id number])[facility])[address] [place] [address] Platelet mean volume (Bld) [Entitic vol] 9.7 fL Normal 9.0-12.7 [facility] Comment on above: Performed By: #### L [id number] ####Tempering Kiln Tender: TRACI LIZARRAGA ([id number])[facility])[address] [place] [address] Platelets (Bld) [#/Vol] 126 10*3/uL Low 140-440 [facility] Comment on above: Performed By: #### L [id number] ####Tempering Kiln Tender: TRACI LIZARRAGA ([id number])[facility])[address] [place] [address] RBC (Bld) [#/Vol] 4.08 10*6/uL Low 4.40-5.90 [facility] Comment on above: Performed By: #### L [id number] ####Tempering Kiln Tender: TRACI LIZARRAGA ([id number])[facility])[address] [place] [address] WBC (Bld) [#/Vol] 16.2 10*3/uL High 3.6-10.7 [facility] Comment on above: Performed By: #### L [id number] ####Tempering Kiln Tender: TRACI LIZARRAGA ([id number])[facility])[address] [place] [address] Consulton 08-03-2024 Consult Normal [facility] Consult Normal [facility] FIBRINOGENon 08-03-2024 FIBRINOGEN 299 mg/dL Normal 200-400 [facility] Comment on above: Performed By: #### L [id number], [id number] ####Tempering Kiln Tender: TRACI LIZARRAGA ([id number])[facility])[address] [place] [address] MAGNESIUMon 08-03-2024 Magnesium [Mass/Vol] 4.1 mg/dL High 1.6-2.6 [facility] Comment on above: Result Comment: ORDE R COMMENTS:Higher values can be expected in females during menses. Performed By: #### L AB103, LAB15 ####Tempering Kiln Tender: TRACI LIZARRAGA ([id number])[facility])[address] [place] [address] Nursing Noteon 08-03-2024 Nursing Note Normal [facility] Op Noteon 08-03-2024 Op Note Normal [facility] PROTIME AND APTTon aPTT Coag (Bld) [Time] 29.0 s Normal 20.0-30.5 [facility] Comment on above: Performed By: #### L [id number], [id number] ####Tempering Kiln Tender: TRACI LIZARRAGA ([id number])[facility] ([facility])[address] [place] [address] INR Coag (PPP) [Relative time] 1.1 {INR} Normal 0.9-1.1 [facility] Comment on above: Result Comment: Leon mmended Anticoagulant Therapy: SEE BELOW----- INR of 2.0 - 3.0 : - Prophylaxis of Venous Thrombosis (high-risk surgery) - Treatment of Venous Thrombosis - Treatment of Pulmonary Embolism (Includes tissue heart valves, Acute Myocardial Infarction to prevent systemic embolism, Valvular Heart Disease, and Atrial Fibrillation)----- INR of 2.5 - 3.5 : - Mechanical Prosthetic Valves (high risk) - If oral anticoagulant therapy is used to prevent Myocardial Infarction Performed By: #### Sindy [id number], [id number] ####Tempering Kiln Tender: TRACI LIZARRAGA ([id number])[facility] ([facility])[address] [place] [address] PT Coag (PPP) [Time] 11.4 s Normal 9.0-12.0 [facility] Comment on above: Performed By: #### Sindy [id number], [id number] ####Tempering Kiln Tender: TRACI LIZARRAGA ([id number])[facility] ([facility])[address] [place] [address] Progress Noteon 08-03-2024 Progress Note Normal [facility] XR CHEST 1 VIEWon 08-03-2024 XR CHEST 1 VIEW Normal [facility] XR CHEST 1 VIEW Normal [facility] ECG 12-LEADon 07-28-2024 ECG 12-LEAD IMPRESSION: Sinus rhythm Right bundle branch block Electronically Signed On 07-28-2024 10:19:07 EDT by Michael Sutton Normal [facility] XR CHEST 2 VIEWSon XR CHEST 2 VIEWS Normal [facility] [id number] 07-27-2024 [id number] Normal [facility] Anesthesia Noteon 07-27-2024 Anesthesia Note Normal [facility] BLOOD TYPE AND SCREEN GELon 07-27-2024 ABO GROUPING O Normal [facility] Comment on above: Performed By: #### L [id number] ####Tempering Kiln Tender: TRACI LIZARRAGA ([id number])[facility]LOOD [facility] ([facility])[address] [place] [address] RH TYPE IN BLOOD Negative Normal [facility] Comment on above: Performed By: #### L [id number] ####Tempering Kiln Tender: TRACI LIZARRAGA ([id number])[facility] ([facility])[address] [place] [address] CBC (HEMOGRAM)on 07-27-2024 Erythrocyte distribution width (RBC) [Ratio] 13.4 % Normal 11.5-15.0 [facility] Comment on above: Performed By: #### L [id number] ####Tempering Kiln Tender: TRACI LIZARRAGA ([id number])[facility] ([facility])[address] [place] [address] Hematocrit (Bld) [Volume fraction] 43.9 % Normal 40.0-52.0 [facility] Comment on above: Performed By: #### L [id number] ####Tempering Kiln Tender: TRACI LIZARRAGA ([id number])[facility])[address] [place] [address] Hemoglobin (Bld) [Mass/Vol] 14.3 g/dL Normal 13.0-18.0 [facility] Comment on above: Performed By: #### L [id number] ####Tempering Kiln Tender: TRACI LIZARRAGA ([id number])[facility] ([facility])[address] [place] [address] MCH (RBC) [Entitic mass] 28.6 pg Normal 26.0-34.0 [facility] Comment on above: Performed By: #### L [id number] ####Tempering Kiln Tender: TRACI LIZARRAGA ([id number])[facility])[address] [place] [address] MCHC 32.6 % Normal 30.5-36.0 [facility] Comment on above: Performed By: #### L [id number] ####Tempering Kiln Tender: TRACI LIZARRAGA ([id number])[facility] ([facility])[address] [place] [address] MCV (RBC) [Entitic vol] 87.8 fL Normal 77.0-99.0 [facility] Comment on above: Performed By: #### L [id number] ####Tempering Kiln Tender: TRACI LIZARRAGA ([id number])[facility] ([facility])[address] [place] [address] Platelet mean volume (Bld) [Entitic vol] 9.9 fL Normal 9.0-12.7 [facility] Comment on above: Performed By: #### L [id number] ####Tempering Kiln Tender: TRACI LIZARRAGA ([id number])[facility] ([facility])[address] [place] [address] Platelets (Bld) [#/Vol] 211 10*3/uL Normal 140-440 [facility] Comment on above: Performed By: #### L [id number] ####Tempering Kiln Tender: TRACI LIZARRAGA ([id number])[facility])[address] [place] [address] RBC (Bld) [#/Vol] 5.00 10*6/uL Normal 4.40-5.90 [facility] Comment on above: Performed By: #### L [id number] ####Tempering Kiln Tender: TRACI LIZARRAGA ([id number])[facility] ([facility])[address] [place] [address] WBC (Bld) [#/Vol] 10.2 10*3/uL Normal 3.6-10.7 [facility] Comment on above: Performed By: #### L [id number] ####Tempering Kiln Tender: TRACI LIZARRAGA ([id number])[facility] ([facility])[address] [place] [address] CNPNon 07-27-2024 CNPN Telephone (INTMWS) ONEILERICKSON PIERCE ([id number]) 1960 M Date Time Provider Department 07/27/24 MUNDO PLASENCIA INTMWS During your visit today, we recorded the following information about you: Mundo Plasencia MD 07/27/2024 6:48 PM Signed Received labs from [facility]. Patient with new diagnosis of diabetes mellitus (HgbA1c 7.4%, glucose 135 and 127). He is being scheduled for thoracic aneurysm surgery. Plan: Low carbohydrate diet for now. Treatment may be initiated during his hospital stay. Follow up here 2-4 weeks after surgery. Chica Bañuelos LPN 07/28/2024 10:51 AM Signed VM is full, unable to leave msg. Will try to call again later. Christin Kolb LPN, MA 07/29/2024 10:06 AM Signed 2ND ATTEMPT No answer, mailbox is full. Sent Aledia message Christin Cuellar MA July 29, 2024 10:03 AM Feliberto Carballo RN 07/29/2024 11:44 AM Signed Pt called and is notified of providers results and instructions. Pt voices understanding. Tried to set up f/u appointment for Pt, but he said he was going to wait until after the surgery. Feliberto Carballo RN Allergies As of Date: 07/27/2024 Noted Allergy Reaction PENICILLINS 04/11/2011 4 - Hives Comments: Hives or GI upset-patient unsure ASA (ASPIRIN) 07/28/2017 4 - Hives 8 - GI Upset Date Reviewed: 05/04/2024 Reviewed by: Chapis Dickens, COMMERCIAL PEST CONTROL REPRESENTATIVE.PLUMBING MANAGER - Fully Assessed Reason for Visit: Results [95] Cmt: New diagnosis of diabetes mellitus. Labs from [facility] Prescriptions as of 07/29/2024 - doxazosin (CARDURA) 2 mg tablet Take 1 tablet by mouth daily at bedtime. - CALCIUM-VITAMIN D3-MAGNESIUM ORAL Take by mouth. - amLODIPine (NORVASC) 10 mg tablet Take 1 tablet by mouth once daily. - metoprolol tartrate, short acting, (LOPRESSOR) 25 mg tablet Take 25 mg by mouth twice daily. - TURMERIC ORAL Take 1,500 mg by mouth twice daily. - CINNAMON Take 1,000 mL by mouth once daily. - ascorbic acid/collagen hydr (COLLAGEN PLUS VITAMIN C ORAL) Take 1,000 mg by mouth once daily. - PAPAYA ENZYME ORAL Take 1 capsule by mouth once daily. Problem List As Of Date 07/27/2024 Noted Resolved Solitary kidney, acquired [Z90.5] 04/11/2011 Kidney stones [N20.0] 04/11/2011 12/29/2019 Abnormal PSA [R97.20] 04/11/2011 09/01/2018 Hypercalciuria [R82.994] 04/22/2011 12/29/2019 Cholelithiasis [K80.20] 07/17/2014 10/27/2017 Abdominal pain [R10.9] 07/17/2014 10/27/2017 Tobacco abuse [Z72.0] 07/25/2014 Severe sleep apnea [G47.30] 07/25/2014 07/25/2014 SONIA (obstructive sleep apnea) intolerant to CPA*07/25/2014 BPH with obstruction/lower urinary tract sympto*10/27/2017 Paroxysmal atrial fibrillation (HCC) [I48.0] 10/27/2017 Gout [M10.9] Hypertension [I10] Obesity, Class I, BMI 30-34.9 [E66.811] 04/25/2019 10/09/2021 Upper back pain [M54.9] 05/09/2019 10/09/2021 DDD (degenerative disc disease), lumbar [M51.36*05/09/2019 Neck pain [M54.2] 05/09/2019 10/09/2021 Chronic pain syndrome [G89.4] 05/09/2019 Chronic bronchitis, obstructive (HCC) [J44.89] 07/08/2020 Ascending aorta dilation [I77.810] 01/06/2019 07/27/2024 Obesity, Class II, BMI 35-39.9 [E66.812] 01/02/2021 10/09/2021 Obesity, Class III, BMI >= 40 [E66.813] 10/09/2021 Nodule of left lung [R91.1] 06/04/2022 Cardiomyopathy (HCC) [I42.9] 06/04/2022 Ascending aortic aneurysm [I71.21] 07/27/2024 New onset type 2 diabetes mellitus (HCC) [E11.9]07/27/2024 Encounter Status:Closed by FELIBERTO CARBALLO on 07/29/24 Normal [facility] COMPLETE URINALYSIS WITH REF RAMON TO CULTUREon 07-27-2024 BACTERIA (#/HPF) IN URINE Negative Normal Negative [facility] Comment on above: Performed By: #### L [id number] ####Tempering Kiln Tender: TRACI LIZARRAGA ([id number])[facility])[address] [place] [address] BILIRUBIN, TOTAL PRESENCE IN URINE Negative Normal Negative [facility] Comment on above: Performed By: #### L [id number] ####Tempering Kiln Tender: TRACI LIZARRAGA ([id number])[facility])[address] [place] [address] Clarity (U) Clear Normal Clear [facility] [employer] [facility] Comment on above: Performed By: #### L [id number] ####Tempering Kiln Tender: TRACI LIZARRAGA ([phone])[facility] ([facility])[address] [place] [address] Color (U) Yellow Normal Lt. Yellow [facility] [employer] [facility] Comment on above: Performed By: #### L [id number] ####Tempering Kiln Tender: TRACI LIZARRAGA ([id number])[facility] ([facility])[address] [place] [address] [place] GLUCOSE (MG/DL) IN URINE Normal Normal Nor mal (<70) [facility] [employer] [facility] Comment on above: Performed By: #### L [id number] ####Tempering Kiln Tender: TRACI LIZARRAGA ([id number])[facility])[address] [place] [address] [place] HEMOGLOBIN PRESENCE IN URINE Negative Normal Negative [facility] Comment on above: Performed By: #### L [id number] ####Tempering Kiln Tender: TRACI LIZARRAGA ([id number])[facility] ([facility])[address] [place] [address] HYALINE CASTS (#/LPF) IN URINE SEDIMENT BY MICROSCOPY Negative Normal Negative [facility] Comment on above: Performed By: #### L [id number] ####Tempering Kiln Tender: TRACI LIZARRAGA ([id number])[facility] ([facility])[address] [place] [address] Ketones Ql (U) Negative Normal Negative [facility] Comment on above: Performed By: #### L [id number] ####Tempering Kiln Tender: TRACI LIZARRAGA ([id number])[facility] ([facility])[address] [place] [address] LEUKOCYTE ESTERASE PRESENCE IN URINE BY TEST STRIP Negative Normal Negative [facility] Comment on above: Performed By: #### L [id number] ####Tempering Kiln Tender: TRACI LIZARRAGA ([id number])[facility] ([facility])[address] [place] [address] [place] MUCUS (#/LPF) IN URINE SEDIMENT Few Normal Negative [facility] Comment on above: Performed By: #### L [id number] ####Tempering Kiln Tender: TRACI LIZARRAGA ([id number])[facility] ([facility])[address] [place] [address] NITRITE PRESENCE IN URINE Negative Normal Negative [facility] Comment on above: Performed By: #### L [id number] ####Tempering Kiln Tender: TRACI LIZARRAGA ([id number])[facility] HOSPITAL ([facility])[address] [place] [address] pH (U) 6.0 [pH] Normal 5.0-8.0 [facility] Comment on above: Performed By: #### L [id number] ####Tempering Kiln Tender: TRACI LIZARRAGA ([id number])[facility] ([facility])[address] [place] [address] [place] Protein (U) [Mass/Vol] 30 mg/dL Abnormal Negative [facility] Comment on above: Performed By: #### L [id number] ####Tempering Kiln Tender: TRACI LIZARRAGA ([id number])[facility])[address] [place] [address] RBC (#/HPF) IN URINE SEDIMENT 0-2 Normal 0-2 [facility] Comment on above: Performed By: #### L [id number] ####Tempering Kiln Tender: TRACI LIZARRAGA ([id number])[facility])[address] [place] [address] Specific gravity (U) [Rel density] 1.029 Normal 1.005-1.030 [facility] Comment on above: Result Comment: MELINDA Torres COMMENTS:A specimen with <=10 WBC is not consistent with inflammation. This specimen will not reflex to a urine culture. Performed By: #### L [id number] ####Tempering Kiln Tender: TRACI LIZARRAGA ([phone])[facility])[address] [place] [address] SQUAMOUS EPITHELIAL CELLS (#/HPF) IN URINE SEDIMENT 0-2 Normal 3-5 [facility] Comment on above: Performed By: #### L [id number] ####Tempering Kiln Tender: TRACI LIZARRAGA ([id number])[facility])[address] [place] [address] UROBILINOGEN (MG/DL) IN URINE Normal Normal Normal (0-1) [facility] Comment on above: Performed By: #### L [id number] ####Tempering Kiln Tender: TRACI LIZARRAGA ([id number])[facility])[address] [place] [address] WBC (LEUKOCYTE) (#/HPF) IN URINE SEDIMENT 3-5 Normal 0-5 [facility] Comment on above: Performed By: #### L [id number] ####Tempering Kiln Tender: TRACI LIZARRAGA ([id number])[facility])[address] [place] [address] COMPREHENSIVE METABOLIC PANE Baltazar 07-27-2024 Albumin [Mass/Vol] 3.7 g/dL Normal 3.4-4.8 [facility] Comment on above: Performed By: #### L [id number] ####Tempering Kiln Tender: TRACI LIZARRAGA ([id number])[facility] ([facility])[address] [place] [address] ALP [Catalytic activity/Vol] 91 U/L Normal 40-150 [facility] Comment on above: Performed By: #### L [id number] ####Tempering Kiln Tender: TRACI LIZARRAGA ([id number])[facility] ([facility])[address] [place] [address] ALT [Catalytic activity/Vol] 30 U/L Normal <40 [facility] Comment on above: Performed By: #### L [id number] ####Tempering Kiln Tender: TRACI LIZARRAGA ([id number])[facility] ([facility])[address] [place] [address] Anion gap [Moles/Vol] 7 mmol/L Normal 3-[address] [facility] Comment on above: Performed By: #### L [id number] ####Tempering Kiln Tender: TRACI LIZARRAGA ([id number])[facility] ([facility])[address] [place] [address] AST [Catalytic activity/Vol] 19 U/L Normal <34 [facility] Comment on above: Performed By: #### L [id number] ####Tempering Kiln Tender: TRACI LIZARRAGA ([id number])[facility] ([facility])[address] [place] [address] Bilirubin [Mass/Vol] 0.4 mg/dL Normal <1.2 [facility] Comment on above: Performed By: #### L [id number] ####Tempering Kiln Tender: TRACI LIZARRAGA ([id number])[facility] ([facility])[address] [place] [address] Calcium [Mass/Vol] 9.2 mg/dL Normal 8.8-10.0 [facility] Comment on above: Performed By: #### L [id number] ####Tempering Kiln Tender: TRACI LIZARRAGA ([id number])[facility] ([facility])[address] [place] [address] Chloride [Moles/Vol] 101 mmol/L Normal 98-107 [facility] Comment on above: Performed By: #### L [id number] ####Tempering Kiln Tender: TRACI LIZARRAGA ([id number])[facility] ([facility])[address] [place] [address] CO2 [Moles/Vol] 29 mmol/L Normal 23-31 [facility] Comment on above: Performed By: #### L [id number] ####Tempering Kiln Tender: TRACI LIZARRAGA ([id number])[facility])[address] [place] [address] Creatinine [Mass/Vol] 0.99 mg/dL Normal 0.72-1.25 [facility] Comment on above: Performed By: #### L [id number] ####Tempering Kiln Tender: TRACI LIZARRAGA ([id number])[facility])[address] [place] [address] GLOMERULAR FILTRATION RATE ML/MIN/1.73 SQ M.PREDICTED 84.5 mL/min/1.73m*2 Normal >60.0 [facility] Comment on above: Result Comment: Calc ulation based on the Chronic Kidney Disease Epidemiology Collaboration (CKD-EPI) equation refit without adjustment for race Performed By: #### L [id number] ####Tempering Kiln Tender: TRACI LIZARRAGA ([id number])[facility])[address] [place] [address] Glucose [Mass/Vol] 135 mg/dL High 82-115 [facility] Comment on above: Performed By: #### L [id number] ####Tempering Kiln Tender: TRACI LIZARRAGA ([id number])[facility])[address] [place] [address] Potassium [Moles/Vol] 4.4 mmol/L Normal 3.5-5.1 [facility] Comment on above: Result Comment: [facility] potassium values may be up to 0.5 mmol/L lower than serum values. Performed By: #### L [id number] ####Tempering Kiln Tender: TRACI [id number])[facility])[address] [place] [address] Protein [Mass/Vol] 7.4 g/dL Normal 6.4-8.3 [facility] Comment on above: Performed By: #### L [id number] ####Tempering Kiln Tender: TRACI LIZARRAGA ([id number])[facility])[address] [place] [address] Sodium [Moles/Vol] 137 mmol/L Normal 136-145 [facility] Comment on above: Performed By: #### L [id number] ####Tempering Kiln Tender: TRACI LIZARRAGA ([id number])[facility])[address] [place] [address] Urea nitrogen [Mass/Vol] 15 mg/dL Normal 9-23 [facility] Comment on above: Performed By: #### L [id number] ####Tempering Kiln Tender: TRACI LIZARRAGA ([id number])[address] HEMOGLOBIN A1Con 07-27-2024 Glucose [Mass/Vol] 166 mg/dL Normal [facility] Comment on above: Result Comment: MELINDA Torres COMMENTS:HbA1c values of 5.7-6.4 percent indicate an increased risk for developing diabetes mellitus. HbA1c values greater than or equal to 6.5 percent are diagnostic of diabetes mellitus. For diagnosis of diabetes in individuals without unequivocal hyperglycemia, results should be confirmed by repeat testing. Performed By: #### L [id number] ####Tempering Kiln Tender: TRACI LIZARRAGA ([id number])[facility])[address] [place] [address] HEMOGLOBIN A1C 7.4 %HbA1C High <5.7 [facility] Comment on above: Result Comment: Norm al less than 5.7%Prediabetes 5.7% to 6.4%Diabetes 6.5% or higher--HgbA1C levels may not be accurate in patients who have renal disease, received recent blood transfusions, are anemic, or who have dyshemoglobinemia. Performed By: #### L [id number] ####Tempering Kiln Tender: TRACI LIZARRAGA ([id number])[facility])[address] [place] [address] MRSA BY PCRon 07-27-2024 MRSA BY PCR Normal [facility] Comment on above: Performed By: #### L [id number] ####Tempering Kiln Tender: TRACI LIZARRAGA ([id number])[facility])[address] [place] [address] PROTIME AND APTTon aPTT Coag (Bld) [Time] 29.6 s Normal 20.0-30.5 [facility] Comment on above: Performed By: #### L [id number] ####Tempering Kiln Tender: TRACI LIZARRAGA ([id number])[facility])[address] [place] [address] INR Coag (PPP) [Relative time] 1.0 {INR} Normal 0.9-1.1 [facility] Comment on above: Result Comment: Leon mmended Anticoagulant Therapy: SEE BELOW----- INR of 2.0 - 3.0 : - Prophylaxis of Venous Thrombosis (high-risk surgery) - Treatment of Venous Thrombosis - Treatment of Pulmonary Embolism (Includes tissue heart valves, Acute Myocardial Infarction to prevent systemic embolism, Valvular Heart Disease, and Atrial Fibrillation)----- INR of 2.5 - 3.5 : - Mechanical Prosthetic Valves (high risk) - If oral anticoagulant therapy is used to prevent Myocardial Infarction Performed By: #### L [id number] ####Tempering Kiln Tender: TRACI LIZARRAGA ([id number])[facility])[address] [place] [address] PT Coag (PPP) [Time] 10.2 s Normal 9.0-12.0 [facility] Comment on above: Performed By: #### L [id number] ####Tempering Kiln Tender: TRACI LIZARRAGA ([id number])[facility])[address] [place] [address] Progress Noteon 07-27-2024 Progress Note Normal [facility] 36on 07-25-[address] Solano reviewed PFT results. Per Dr. Solano, ok to proceed with surgery as scheduled. Normal [facility] 36on 07-24-2024 36 Meds sent to [facility] in [place]. Surg proc orders placed. Russel Nunez, COMMERCIAL PEST CONTROL REPRESENTATIVE - PLUMBING MANAGER 07/24/24 Normal [facility] 36on 07-22-2024 36 [facility] Progress Noteon 07-21-2024 Progress Note Pre op teaching done with patient. Instructed to hold NSAIDS 7 days prior to surgery. All other medications per PAT protocol. Pharmacy confirmed. All questions answered. Normal [facility] Progress Note We want to inform you that your patient's blood pressure was noted to be elevated in our office today. We thank you for trusting us with your patient's health. Last BP: BP Readings from Last 2 Encounters: 07/21/24 (!) 165/100 06/08/24 (!) 168/103 [facility] Progress Note Normal [facility] 36on 07-06-2024 36 PC to patient's daughter, aware to follow with Dr. Dai office for now. Aware to call and see if he needs a follow up. Normal [facility] 36 Spoke with patient's daughter, aware of echo results. Aware of echo results. Normal [facility] 36 PC to patient, LMOM asking for a call back. Normal [facility] 36 Patient left message requesting echo results Normal [facility] 36 PC to patient, LMOM asking for a call back. Normal [facility] 36 PT requesting Echo results Normal [facility] US Heart Transthoracicon Ao Root Index 1.92 cm/m2 [facility] Aortic Arch 4.2 cm [facility] Aortic Root 5.1 cm [facility] Aortic valve Mean systole pressure gradient by US.doppler derived full Bernoulli 5 mmHg [facility] Aortic valve Orifice area by US 3.8 cm2 [facility] Aortic valve Peak systolic flow by US.doppler 1.1 m/s [facility] AR Max Velocity PISA 6 m/s [facility] AR PHT 388.8 ms [facility] Ascending Aorta 5.1 cm [facility] Ascending Aorta Index 1.92 cm/m2 [facility] AV Area by Peak Velocity 3.3 cm2 [facility] AV Area by VTI 3.2 cm2 [facility] th AV Peak Gradient 9 mmHg [facility] alth AV Peak Velocity 1.5 m/s [facility] alth AV Velocity Ratio 0.87 [facility] ealth AV VTI 30.2 cm [facility] JANY/BSA Peak Velocity 1.2 cm2/m2 [facility] JANY/BSA VTI 1.2 cm2/m2 [facility] E/E' Lateral 6.55 [facility] E/E' Ratio (Averaged) 7.77 [facility] E/E' Septal 9 [facility] Fractional Shortening 2D 42 % 28 - 44 % [facility] Interpretation and review of laboratory results Abnormal [facility] IVSd 0.9 cm 0.6 - 1.0 cm [facility] LA Volume 2C 47 mL 18 - 58 mL [facility] LA Volume 4C 54 mL 18 - 58 mL [facility] LA Volume A/L 54 mL [facility] h LA Volume BP 52 mL 18 - 58 mL [facility] LA Volume Index 2C 18 mL/m2 16 - 34 mL/m2 [facility] LA Volume Index 4C 20 mL/m2 16 - 34 mL/m2 [facility] LA Volume Index A/L 20 mL/m2 16 - 34 mL/m2 [facility] LA Volume Index BP 20 ml/m2 16 - 34 ml/m2 [facility] Left ventricular Ejection fraction by US.2D+Calculated by biplane method of disks 74 % 55 - 100 % [facility] alth LV E' Lateral Velocity 11 cm/s [facility] LV E' Septal Velocity 8 cm/s [facility] LV EDV A2C 161 mL [facility] LV EDV A4C 177 mL [facility] LV EDV BP 172 mL Abnormal 67 - 155 mL [facility] LV EDV Index A2C 61 mL/m2 [facility] alth LV EDV Index A4C 67 mL/m2 [facility] He alth LV EDV Index BP 65 mL/m2 [facility] lth LV Ejection Fraction A2C 73 % [facility] LV Ejection Fraction A4C 75 % [facility] LV ESV A2C 44 mL [facility] LV ESV A4C 45 mL [facility] LV ESV BP 45 mL 22 - 58 mL [facility] LV ESV Index A2C 17 mL/m2 [facility] ESV Index A4C 17 [facility]/m2 [facility] LV ESV Index BP 17 mL/m2 [facility] LV Mass 2D 170.2 g 88 - 224 g [facility] LV Mass 2D Index 64 g/m2 49 - 115 g/m2 [facility] LV RWT Ratio 0.46 [facility] LVIDd 4.8 cm 4.2 - 5.9 cm [facility] LVIDd Index 1.8 cm/m2 [facility] LVIDs 2.8 cm [facility] LVIDs Index 1.05 cm/m2 [facility] LVOT Cardiac Output 6.7 liter/mi nut e [facility] LVOT Diameter 2.2 cm [facility] h LVOT Mean Gradient 4 mmHg [facility] LVOT Peak Gradient 6 mmHg [facility] LVOT Peak Velocity 1.3 m/s [facility] LVOT Stroke Volume Index 36.7 mL/m2 [facility] LVOT SV 97.6 ml [facility] LVOT VTI 25.7 cm [facility] LVOT:AV VTI Index 0.85 [facility] ealt LVPWd 1.1 cm Abnormal 0.6 - 1.0 cm [facility] MV A Velocity 0.47 m/s [facility] MV E Velocity 0.72 m/s [facility] MV E Wave Deceleration Time 176.6 ms [facility] MV E/A 1.53 [facility] RA Area 4C 62.1 mL [facility] RA Area 4C 62.3 mL [facility] RV Basal Dimension 5.3 cm [facility] RV Free Wall Peak S' 16 cm/s [facility] RV Mid Dimension 4 cm [facility] alth TAPSE 2.5 cm 1.7 cm [facility] TR Max Velocity 2.7 m/s [facility] TR Peak Gradient 29 mmHg [facility] alth Left Ventricle: Left ventricle size is normal. Normal wall thickness. Normal left ventricular systolic function. EF by 2D Simpsons Biplane is 74%. Normal wall motion. Right Ventricle: Right ventricle is dilated. Normal systolic function. Aortic Valve: Mild (1+) regurgitation. Right Atrium: Right atrium is dilated. Aorta: Severely dilated sinuses of Valsalva. Severely dilated ascending aorta. Ao ascending diameter is 5.1 cm. No significant valvular abnormalities. Left Ventricle Left ventricle size is normal. Normal wall thickness. Normal left ventricular systolic function. EF by 2D Simpsons Biplane is 74%. Normal wall motion. Normal diastolic function. Right Ventricle Right ventricle is dilated. Normal systolic function. Left Atrium Left atrium size is normal. Right Atrium Right atrium is dilated. IVC/SVC IVC diameter is normal and decreases greater than 50% during inspiration; therefore the estimated right atrial pressure is normal (~3 mmHg). Mitral Valve Valve structure is normal. Mild (1+) regurgitation. No stenosis noted. Tricuspid Valve Valve structure is normal. Mild (1+) regurgitation. Aortic Valve Trileaflet. No cusp thickening. No cusp calcification. Mild (1+) regurgitation. No stenosis. Pulmonic Valve Valve structure is normal. Trace regurgitation. Ascending Aorta Severely dilated sinuses of Valsalva. Severely dilated ascending aorta. Ao ascending diameter is 5.1 cm. Pericardium No pericardial effusion. Septum No interatrial shunt visualized on color Doppler. Study Details Image quality: suboptimal. Blood pressure: 156/88 mmHg. The underlying ECG rhythm was sinus rhythm. Technical qualifiers: Technically difficult study with poor endocardial visualization. Ultrasound enhancement agent was given to enhance imaging. Echo Additional Conclusions No significant valvular abnormalities. CV CPACS [facility] Anesthesia Noteon 06-08-2024 Anesthesia Note Normal [facility] Cardiac catheterization stud yon 06-08-2024 Hemodynamics LVEDP = 22 mmHg Blood pressure: 124/70 mmHg RA (mean A-wave): 14 mmHg RV: 36/1 mmHg PA: 38/12 mmHg (mPAP 25 mmHg) PCWP (mean A-wave): 21 mmHg RA Sat: 72% PA Sat: 70% Ao Sat: 95% Edgardo CO/CI: 6.5 L/min, 2.46 L/min/m2 TD CO/CI: 7.6 L/min, 2.85 L/min/m2 PVR (Edgardo): 1.53 GARCIA SVR (Edgardo): 967 dyn*sec/cm5 Valves Aortic Stenosis: None present Ascending aortography Dilated and uncoiled ascending aorta. No aortic insufficiency Coronary Arteriography Dominance: Right Left Main: Large caliber with minimal disease Left Anterior Descending: Large vessel with minimal diffuse disease Diagonals: 4 small diagonals present Left Circumflex: Large vessel with minimal diffuse disease Obtuse Marginals: Three present, 50% stenosis at the ostium of OM1 Right Coronary: Large vessel with minimal diffuse disease Right Posterior Descending: Moderately sized, no significant disease Right Posterolateral: Moderately sized, no significant disease Collaterals: None Complications None Conclusions Mild Post-Capillary Pulmonary Hypertension. Normal Cardiac Output and Cardiac Index. Right dominant coronary system Minimal diffuse CAD with moderate disease of the ostium of OM1. Markedly dilated ascending aorta Plan Proceed with ascending aortic aneurysm repair. No significant obstructive coronary artery disease. Coronary Findings Diagnostic Dominance: Right Left Main: The vessel is large in size. The vessel exhibits minimal luminal irregularities. Left Anterior Descending: The vessel is large in size. The vessel exhibits minimal luminal irregularities. First Diagonal Branch: The vessel is small in size. Second Diagonal Branch: The vessel is small in size. Third Diagonal Branch: The vessel is small in size. Left Circumflex: The vessel is large in size. The vessel exhibits minimal luminal irregularities. First Obtuse Marginal Branch: 1st Mrg lesion, 50% stenosed. Right Coronary Artery: The vessel is large in size. The vessel exhibits minimal luminal irregularities. Intervention No interventions have been documented. Hemodynamics Interpretation LVEDP = 22 mmHg Blood pressure: 124/70 mmHg RA (mean A-wave): 14 mmHg RV: 36/1 mmHg PA: 38/12 mmHg (mPAP 25 mmHg) PCWP (mean A-wave): 21 mmHg RA Sat: 72% PA Sat: 70% Ao Sat: 95% Edgardo CO/CI: 6.5 L/min, 2.46 L/min/m2 TD CO/CI: 7.6 L/min, 2.85 L/min/m2 PVR (Edgardo): 1.53 GARCIA SVR (Edgardo): 967 dyn*sec/cm5 CV CPACS HEMO [facility] [employer] No Panel Informationon 06-08 Performed by: [employer] [facility], [address] [place] [address] CLIA ID: [id number] Reportable Results: OxyHemoglobin 0 - 100% Expected Ranges: OxyHemoglobin Arterial Sample 95 - 100%* Adequate Oxygenation >=92% Venous sample 60 - 85%* Note: *OxyHemoglobin Reference Ranges based upon literature review Adequate oxygenation based upon [facility] Clinical Decision [facility] Performed by: [employer] [facility], [address] [place] [id number] CLIA ID: [id number] Reportable Results: OxyHemoglobin 0 - 100% Expected Ranges: OxyHemoglobin Arterial Sample 95 - 100%* Adequate Oxygenation >=92% Venous sample 60 - 85%* Note: *OxyHemoglobin Reference Ranges based upon literature review Adequate oxygenation based upon [facility] Clinical Decision [facility] Performed by: [place] [facility], [address] [place] [address] CLIA ID: [id number] Reportable Results: OxyHemoglobin 0 - 100% Expected Ranges: OxyHemoglobin Arterial Sample 95 - 100%* Adequate Oxygenation >=92% Venous sample 60 - 85%* Note: *OxyHemoglobin Reference Ranges based upon literature review Adequate oxygenation based upon [facility] Clinical Decision [facility] Vital signson 06-08-2024 Oxygen saturation in Blood 70 % [facility] Oxygen saturation in Blood 72 % [facility] Oxygen saturation in Blood 95 % [facility] 36on 06-03-2024 36 Prep for Proc completed. Noted to be Pre-op for aneurysm repair by Dr. Solano. Noted to have allergy to ASA (Hives). Will make Accounting Officer aware of this just in case. [facility] 29on 06-01-2024 29 Addended by: LINNETTE GONSALEZ on: 06/01/2024 12:18 PM Modules accepted: Orders [facility] 36on 06-01-2024 36 No prior auth needed for R & LHC ([id number]) -per Medicare A & B. Okay to schedule. Thank you [facility] 36 [facility] 36 I will work on this. Thank you [facility] 36 Patient needs a right and left heart cath prior auth needed please and thank you [facility] BASIC METABOLIC PANELon Anion gap [Moles/Vol] 9 mmol/L Normal 3-13 [facility] Comment on above: Performed By: #### L [id number] ####Tempering Kiln Tender: TRACI LIZARRAGA ([id number])[facility] ([email or web address])[address] [place] [address] Calcium [Mass/Vol] 9.8 mg/dL Normal 8.8-10.0 [facility] Comment on above: Performed By: #### L [id number] ####Tempering Kiln Tender: TRACI LIZARRAGA ([id number])[facility] ([facility])[address] [place] [address] Chloride [Moles/Vol] 98 mmol/L Normal 98-107 [facility] Comment on above: Performed By: #### L [id number] ####Tempering Kiln Tender: TRACI LIZARRAGA ([id number])[facility] ([facility])[address] [place] [address] CO2 [Moles/Vol] 28 mmol/L Normal 23-31 [facility] Comment on above: Performed By: #### L [id number] ####Tempering Kiln Tender: TRACI LIZARRAGA ([id number])[facility])[address] [place] [address] Creatinine [Mass/Vol] 1.15 mg/dL Normal 0.72-1.25 [facility] Comment on above: Performed By: #### L [id number] ####Tempering Kiln Tender: TRACI LIZARRAGA ([id number])[facility])[address] [place] [address] GLOMERULAR FILTRATION RATE ML/MIN/1.73 SQ M.PREDICTED 70.6 mL/min/1.73m*2 Normal >60.0 [facility] Comment on above: Result Comment: Calc ulation based on the Chronic Kidney Disease Epidemiology Collaboration (CKD-EPI) equation refit without adjustment for race Performed By: #### L [id number] ####Tempering Kiln Tender: TRACI LIZARRAGA ([id number])[facility] ([facility])[address] [place] [address] [place] Glucose [Mass/Vol] 127 mg/dL High 82-115 [facility] Comment on above: Performed By: #### L AB15 ####Tempering Kiln Tender: TRACI LIZARRAGA ([id number])[facility])[address] [place] [address] [place] Potassium [Moles/Vol] 4.5 mmol/L Normal 3.5-5.1 [facility] Comment on above: Result Comment: [facility] potassium values may be up to 0.5 mmol/L lower than serum values. Performed By: #### L AB15 ####Tempering Kiln Tender: TRACI [id number])[facility] ([facility])[address] [place] [address] Sodium [Moles/Vol] 135 mmol/L Low 136-145 [facility] Comment on above: Performed By: #### L AB15 ####Tempering Kiln Tender: TRACI LIZARRAGA ([id number])[facility] ([facility] [facility])[address] [place] [address] Urea nitrogen [Mass/Vol] 13 mg/dL Normal 9-23 [facility] Comment on above: Performed By: #### L AB15 ####Tempering Kiln Tender: TRACI LIZARRAGA ([id number])[facility] ([facility] [place] [address] Basic metabolic 1998 panelon 06-01-2024 Anion gap [Moles/Vol] 9 mmol/L 3 - 13 mmol/L [facility] Calcium [Mass/Vol] 9.8 mg/dL 8.8 - 10. 0 mg/dL [facility] Chloride [Moles/Vol] 98 mmol/L 98 - 10 7 mmol/L [facility] CO2 [Moles/Vol] 28 mmol/L 23 - 31 mmol/L [facility] Creatinine [Mass/Vol] 1.15 mg/dL 0.72 - 1.25 mg/dL [facility] GFR/1.73 sq M.predicted (S/P/Bld) [Vol rate/Area] 70.6 mL/min - PINF [facility] Comment on above: Calculation based on the Chronic Kidney Disease Epidemiology Collaboration (CKD-EPI) equation refit without adjustment for race Glucose [Mass/Vol] 127 mg/dL High 82 - 115 mg/dL [facility] Interpretation and review of laboratory results Abnormal [facility] th Potassium [Moles/Vol] 4.5 mmol/L 3.5 - 5.1 mmol/L [facility] Comment on above: Plasma potassium elias ues may be up to 0.5 mmol/L lower than serum values. Sodium [Moles/Vol] 135 mmol/L Low 136 - 145 mmol/L [facility] Urea nitrogen [Mass/Vol] 13 mg/dL 9 - 23 mg/dL [facility] CBC (HEMOGRAM)on 06-01-2024 Erythrocyte distribution width (RBC) [Ratio] 13.4 % Normal 11.5-15.0 [facility] Comment on above: Performed By: #### L [id number] ####Tempering Kiln Tender: TRACI LIZARRAGA ([id number])[address] Hematocrit (Bld) [Volume fraction] 46.3 % Normal 40.0-52.0 [facility] Comment on above: Performed By: #### L [id number] ####Tempering Kiln Tender: TRACI LIZARRAGA ([id number])[address] Hemoglobin (Bld) [Mass/Vol] 14.9 g/dL Normal 13.0-18.0 [facility] Comment on above: Performed By: #### L [id number] ####Tempering Kiln Tender: TRACI LIZARRAGA ([id number])[address] MCH (RBC) [Entitic mass] 28.1 pg Normal 26.0-34.0 [facility] Comment on above: Performed By: #### L [id number] ####Tempering Kiln Tender: TRACI LIZARRAGA ([id number])[address] MCHC 32.2 % Normal 30.5-36.0 [facility] Comment on above: Performed By: #### L [id number] ####Tempering Kiln Tender: TRACI LIZARRAGA ([id number])[facility])[address] [place] [address] MCV (RBC) [Entitic vol] 87.4 fL Normal 77.0-99.0 S [facility] Comment on above: Performed By: #### L [id number] ####Tempering Kiln Tender: TRACI LIZARRAGA ([id number])[address] Platelet mean volume (Bld) [Entitic vol] 10.3 fL Normal 9.0-12.7 [facility] Comment on above: Performed By: #### L AB294 ####Tempering Kiln Tender: TRACI LIZARRAGA ([id number])[facility] ([facility])[address] [place] [address] Platelets (Bld) [#/Vol] 258 10*3/uL Normal 140-440 [facility] Comment on above: Performed By: #### L [id number] ####Tempering Kiln Tender: TRACI LIZARRAGA ([id number])[facility] ([facility])[address] [place] [address] RBC (Bld) [#/Vol] 5.30 10*6/uL Normal 4.40-5.90 [facility] Comment on above: Performed By: #### L [id number] ####Tempering Kiln Tender: TRACI LIZARRAGA ([id number])[facility])[address] [place] [address] WBC (Bld) [#/Vol] 11.5 10*3/uL High 3.6-10.7 [facility] Comment on above: Performed By: #### L [id number] ####Tempering Kiln Tender: TRACI LIZARRAGA ([id number])[facility])[address] [place] [address] CBC panel Auto (Bld)on 06-01 Erythrocyte distribution width (RBC) [Ratio] 13.4 % 11.5 - 15.0 % [facility] Hematocrit (Bld) [Volume fraction] 46.3 % 40.0 - 52.0 % [facility] Hemoglobin (Bld) [Mass/Vol] 14.9 g/dL 13.0 - 18.0 g/dL [facility] Interpretation and review of laboratory results Abnormal [facility] MCH (RBC) [Entitic mass] 28.1 pg 26. 0 - 34.0 pg [facility] MCHC (RBC) [Mass/Vol] 32.2 % 30.5 - 36.0 % [facility] MCV (RBC) [Entitic vol] 87.4 fL 77.0 - 99.0 fL [facility] Platelet mean volume (Bld) [Entitic vol] 10.3 fL 9.0 - 12.7 fL [facility] Platelets (Bld) [#/Vol] 258 10*3/uL 140 - 440 10*3/uL [facility] RBC (Bld) [#/Vol] 5.3 10*6/uL 4.40 - 5.9 0 10*6/uL [facility] WBC (Bld) [#/Vol] 11.5 10*3/uL High 3.6 - 10.7 10*3/uL [facility] No Panel Informationon 06-01 Sinus Rhythm -Right bundle branch block. ABNORMAL [facility] Progress Noteon 06-01-2024 Progress Note Normal [facility] [employer] [facility] [facility] 36on 05-19-2024 36 Normal [facility] Progress Noteon 05-18-2024 Progress Note Normal [facility] [employer] [facility] CNOVon 05-04-2024 CNOV Office Visit (INTMWS) ERICKSON RIGGS ([id number]) 1960 M Date Time Provider Department 05/04/24 5:00 PM CHAPIS DICKENS INTMWS During your visit today, we recorded the following information about you: Pulse Respiration Blood pressure Weight 66/minute 12/minute 134/72 153.2 kg Height 1.83 m Chapis Dickens, COMMERCIAL PEST CONTROL REPRESENTATIVE.PLUMBING MANAGER 05/04/2024 5:48 PM Signed Erickson Nicoletle is a 64 year old male here for a Medicare wellness visit. Medicare Health Risk Assessment General Health Fair Exercise: Minutes/Day 0 min Exercise: Days/Week 0 days Alcohol: Daily Use Never Alcohol: Drinks/Day Patient does not drink Alcohol: 6 or more drinks Never Feel off balance No Concerns: Teeth/Dentures No Concerns: Sexual function No Troubled by feelings None of the above Frequency: Eating healthy diet More than half the days ADLs requiring help None of the above Safety precautions in home/vehicle Yes Smoke, vape, chews tobacco Yes, but I'm not ready to quit (marijuana, quit tobacco cigarettes a few years ago) Difficulty hearing Yes Difficulty seeing No Current Providers Specialists: I have reviewed specialist-related care of the patient in the medical record. Current care team: Patient Care Team: Mundo Plasencia MD as PCP - General (Internal Medicine) Chapis Dickens, GARY.NICOLE as Clinical Dietetic Technician (Internal Medicine) [facility] Medical/Family history review Reviewed and updated problem list, medical/surgical/fam jaimee/social history, medications, and allergies. Opioid use review Opioid Medications (last 90 days) No data to display Anxiety/Depression screening PHQ-2 Score: 0 (Lower risk for depression) VIANCA-2 Score: 0 (Lower risk for anxiety) Recommendation: no further intervention at this time Cognitive screening Mini Cog Score: 2 Cognitive screening reviewed and Recommended referral for further evaluation (score 0-2). Patient declined. Functional Observation Was the patient's Timed Up AND Go test unsteady or >= 12 seconds? No Advance Care Planning Patient was not able to provide a surrogate decision maker or written advance directives Measurements BP 134/72 Pulse 66 Resp 12 Ht 183 cm (6' 0.05") Wt (!) 153.2 kg (337 lb 11.9 oz) SpO2 98% BMI 45.75 kg/m? Vision Screening: Declines visual acuity screen Assessment/Plan Medicare annual wellness visit, subsequent (Z00.00) - Counseled on healthy diet and regular exercise - Fall avoidance information provided - Personalized prevention plan provided - Discussed need for and benefit of weight loss. BMI 45.75 kg/(m2) - Smoking cessation encouraged; discussed risks to health and quitting strategies. Patient is not ready to quit Additional Concerns The following concerns were also discussed with the patient: He has a history of Afib, cardiomyopathy and ascending aortic aneurysm for which he sees cardiology. Denies medication changes recently. Patient reports he will need "heart surgery" soon but unclear on what type of surgery. HTN-Medication changes:No Taking all medications as prescribed: Yes Side effects: No Home BP's: No Last 3 Encounter BP Readings: Date: BP: 05/04/2024 134/72 07/27/2023 128/78 12/24/2022 137/81 BPH: taking Cardura, denies side effects. Denies LUTS COPD. Current symptoms: chronic cough and wheezing occasionally. Symptoms are not limiting daily activities or exercise. Treatment: none Crisis Manager: none He smokes marijuana. Quit tobacco smoke a few years ago No recent exacerbations. No recent ED visits or hospitalizations in the past year. Lung nodule: incidental finding on CTA of the chest in 2021. Was not seen on repeat CTA last month. PHYSICAL EXAM BP 134/72 Pulse 66 Resp 12 Ht 183 cm (6' 0.05") Wt (!) 153.2 kg (337 lb 11.9 oz) SpO2 98% BMI 45.75 kg/m? GENERAL: well appearing, alert, in no acute distress CARDIOVASCULAR: regular rate and rhythm. No murmur, rubs or gallops. PULMONARY: clear to auscultation, no wheezing, rhonchi, or crackles ASSESSMENT/PLAN: 1. Medicare annual wellness visit, subsequent - ICD9: V70.0, ICD10: Z00.00 (primary diagnosis) See medicare wellness plan 2. Nodule of left lung - ICD9: 793.11, ICD10: R91.1 Not seen on most recent CTA last month 3. Chronic bronchitis, obstructive (HCC) - ICD9: 491.20, ICD10: J44.89 Stable 4. Paroxysmal atrial fibrillation (HCC) - ICD9: 427.31, ICD10: I48.0 Medications and monitoring per cardiology 5. Ascending aorta dilation (HCC) - ICD9: 447.71, ICD10: I77.810 Medications and monitoring per cardiology 6. Cardiomyopathy, unspecified type (HCC) - ICD9: 425.4, ICD10: I42.9 Medications and monitoring per cardiology 7. Obesity, Class III, BMI 40-49.9 (morbid obesity) (HCC) - ICD9: 278.01, ICD10: E66.01 - Discussed need for and benefit of weight loss BMI Readings from Last 1 Encounters: 02 (more content not included)... Normal [facility] CTA Chest W/WO Contraston CTA Chest W/WO Contrast [facility] Services [address] [place] [address] CTA Chest W/WO Contrast MR#: [id number] Acct: [id number] Name: ERICKSON RIGGS Rep #: [id number] : 1960 M 64 From: Brandon Garibay MD PCP: Dr. Mundo Plasencia MD Status: REG CLI Study: CTA Chest W/WO Contrast Date of Exam: 04/26/24 Exam# [id number] Ordering Dr: Alcides Wallace [id number] EXAM: CT ANGIOGRAPHY CHEST WITHOUT AND WITH INTRAVENOUS CONTRAST CLINICAL INDICATION: AAA TECHNIQUE: Helically acquired angiography images were obtained of the chest without and with intravenous contrast. CTDIvol = ( 12.35 ) mGy, DLP = ( 620.65 ) mGycm This CT exam was performed using one or more of the following dose reduction techniques: automated exposure control, adjustment of the mA and/or kV according to patient size, and/or use of iterative reconstruction technique. MIP reconstructed images were created and reviewed. CONTRAST: IV 100mL Isovue-370 COMPARISON: No relevant prior studies available. FINDINGS: PULMONARY ARTERIES: Unremarkable. Normal in caliber. No evidence of pulmonary embolism. AORTA: Ascending thoracic aorta measures up to 5.2 cm, unchanged. No dissection. GREAT VESSELS OF AORTIC ARCH: Unremarkable. Normal in caliber. No evidence of dissection. LUNGS AND PLEURAL SPACES: Pleural parenchymal scarring involving the right middle lobe. Focal airspace disease involving the left lower lobe is concerning for pneumonia in appropriate clinical setting. This is new since the prior study. No mass. No pleural effusion or thickening. HEART: Small pericardial effusion. No cardiomegaly. At least moderate multivessel calcific coronary arteriolosclerosis. MEDIASTINUM: Unremarkable. No mediastinal or hilar adenopathy. Esophagus is unremarkable. No hiatal hernia. No other cardiomediastinal or hilar abnormalities. THYROID: Unremarkable. No thyroid lesions. BONES/JOINTS: Degenerative changes of the spine at multiple levels. No suspicious lytic or blastic abnormality. LIVER: Hepatic steatosis. GALLBLADDER AND BILE DUCTS: Prior cholecystectomy. OTHER FINDINGS: Study was done only with IV contrast; there is no noncontrast disease. CT/CTA Chest W/WO Contrast IMPRESSION: 1. Ascending thoracic aorta measures up to 5.2 cm, unchanged. No dissection. 2. Focal airspace disease involving the left lower lobe is concerning for pneumonia in appropriate clinical setting. This is new since the prior study. Attention on follow-up. AIDOC was utilized to assist in identifying pertinent positive findings. Electronically Signed: Brandon Garibay MD at 21:05 EST Reading Location ID and State: [facility] / [place] Tel , Service support , CC: Dr. Mundo Plasencia MD; RUBEN Griffith Smasher Hand: Signed Normal [facility] ECG COMPLETEon 07-28-2023 Atrial Rate 68 BPM [facility] Calculated P [place] 57 degrees [facility] Calculated R [place] [address] [facility] Calculated T [place] 76 degrees [facility] P-R Interval 178 ms [facility] QRS Duration 102 ms [facility] QT Interval 422 ms [facility] QTC Calculation (Bazett) 448 ms [facility] Ventricular Rate 68 BPM [facility] NORMAL SINUS RHYTHM NORMAL ECG Confirmed by MD WELLS GREGORY () on 07/28/2023 3:55:36 PM [facility] [place] NAME : ERICKSON RIGGS PID : [id number] : 1960 Gender : Male Race : ORD : Procedure Date : Jul 27 2023 19:32:46 Edit Date : Jul 28 2023 15:55:39 Diagnosis: NORMAL SINUS RHYTHM NORMAL ECG Confirmed by MD WELLS GREGORY () on 07/28/2023 3:55:36 PM Test Reason : Location : 185 : [facility] Overread By : MD WELLS GREGORY Edited By : MD WELLS GREGORY Referred By : MUNDO PLASENCIA Acquired by : [facility] Basophil percentageOrdered B y: Alcides Wallace on 04-03-2023 Basophil percentage < 1.0 mg/dL 0.70-1.30 [facility] No Panel InformationOrdered By: Alcides Wallace on 04-03-2023 Bedside Estimated GFR (eGFR) > 60.0000 mL/min >60 [facility] XR CHEST 2V FRONTAL/LATon [facility] XR Chest PA and Lateralon IMPRESSION: No developing abnormality or acute process Smasher Hand: SHERRON Transcribe Date/Time: Apr 24 2022 12:30P Dictated by : MIRZA FERMIN MD This examination was interpreted and the report reviewed and electronically signed by: MIRZA FERMIN MD on Apr 24 2022 12:31PM EST DIVISION OF RADIOLOGY * * *Final Report* * * DATE OF EXAM: Apr 24 2022 12:00PM WOX [id number] - XR CHEST 2V FRONTAL/LAT / PROCEDURE REASON: Chest pain, unspecified type * * * * Physician Interpretation * * * * EXAMINATION: CHEST RADIOGRAPH (2 VIEW FRONTAL & LATERAL) CLINICAL HISTORY: Chest pain, unspecified type MQ: XC2_6 EXAM DATE/TIME: 04/24/2022 12:00 PM COMPARISON: 01/02/2021 RESULT: Lines, tubes, and devices: None. Lungs and pleura: No consolidation. No lung mass. No pleural effusion. No pneumothorax. Minimal stable atelectasis or fibrosis bilaterally Cardiomediastinal silhouette: Stable cardiomediastinal silhouette. Bones and soft tissues: Mild wedging of several lower thoracic vertebrae stable DIVISION OF RADIOLOGY Provider, [facility] - 04/24/2022 * * *Final Report* * * DATE OF EXAM: Apr 24 2022 12:00PM WOX [id number] - XR CHEST 2V FRONTAL/LAT / PROCEDURE REASON: Chest pain, unspecified type * * * * Physician Interpretation * * * * EXAMINATION: CHEST RADIOGRAPH (2 VIEW FRONTAL & LATERAL) CLINICAL HISTORY: Chest pain, unspecified type MQ: XC2_6 EXAM DATE/TIME: 04/24/2022 12:00 PM COMPARISON: 01/02/2021 RESULT: Lines, tubes, and devices: None. Lungs and pleura: No consolidation. No lung mass. No pleural effusion. No pneumothorax. Minimal stable atelectasis or fibrosis bilaterally Cardiomediastinal silhouette: Stable cardiomediastinal silhouette. Bones and soft tissues: Mild wedging of several lower thoracic vertebrae stable IMPRESSION IMPRESSION: No developing abnormality or acute process Smasher Hand: SHERRON Transcribe Date/Time: Apr 24 2022 12:30P Dictated by : MIRZA FERMIN MD This examination was interpreted and the report reviewed and electronically signed by: MIRZA FERMIN MD on Apr 24 2022 12:31PM [facility] Radiology Study observation (narrative) Jaycee [facility] XR Chest PA and LateralOrder ed By: [facility] Provider on 04-24-2022 [facility] ANES POSTPROC EVALon 022 ANES POSTPROC EVAL HNO ID: [id number] Author: Adenike An MD Service: Anesthesiology Author Type: Physician Type: Anesthesia Postprocedure Evaluation Filed: 10/22/2021 1:15 PM Note Text: POST ANESTHESIA EVALUATION NOTE : 1960 Procedure Summary Date: 10/22/21 Room / Location: SURGERY Anesthesia Start: 1243 Anesthesia Stop: Procedure: COLONOSCOPY DIAGNOSTIC Diagnosis: Painless rectal bleeding Scheduled Providers: Christy Garner MD; Adenike An MD Responsible Provider: Adenike An MD Anesthesia Type: MAC ASA Status: 3 Anesthesia Type: MAC Last Vitals Vitals Value Taken Time BP 108/60 10/22/21 1312 Temp 97.8 10/22/21 1315 Pulse 55 10/22/21 1314 Resp 14 10/22/21 1314 SpO2 92 % 10/22/21 1314 Vitals shown include unvalidated device data. Post Anesthesia Patient Status Patient Evaluation: bedside. Anticipated Disposition: phase 2 then home. Neurological Status: aware and responsive. Pulmonary Status: breathing comfortably on room air Airway Control: returned to baseline unsupported. Cardiovascular Status: stable. Pain Management: clinically adequate Postoperative Hydration: acceptable. Intraoperative Events: no significant anesthesia events Post Operative Nausea/Vomiting Status: no significant post operative nausea or vomiting Anesthetic Observations: Recommendation: continue current plan of care. Anesthesia Observations No Documentation SIGNATURE: Adenike An MD PATIENT NAME: Erickson Riggs DATE: October 22, 2021 TIME: 1:15 PM CSN: [id number] [facility] ANES PRE-OPon 10-22-2021 ANES PRE-OP HNO ID: [id number] Author: Adenike An MD Service: Anesthesiology Author Type: Physician Type: Anesthesia Preprocedure Evaluation Filed: 10/22/2021 12:39 PM Note Text: ANESTHESIOLOGY DAY OF SURGERY NOTE : 1960 Procedure Information Date/Time: 10/22/21 1240 Scheduled providers: Christy Garner MD; Adenike An MD Procedure: COLONOSCOPY DIAGNOSTIC Location: LD SURGERY Estimated body mass index is 40.65 kg/m? as calculated from the following: Height as of 10/11/21: 181.6 cm (5' 11.5"). Weight as of 10/11/21: 134.1 kg (295 lb 9.6 oz). Most recent hematocrit and potassium results: Hematocrit 45.7 10/11/2021 Potassium 4.6 10/11/2021 Relevant Problems ANESTHESIA (+) SONIA (obstructive sleep apnea) intolerant to CPAP CARDIO (+) Ascending aorta dilation (HCC) (+) Hypertension (+) Paroxysmal atrial fibrillation (HCC) PULMONARY (+) SONIA (obstructive sleep apnea) intolerant to CPAP I - PHYSICAL EVALUATION AIRWAY Patient intubated: No. Tracheostomy tube not present Mallampati: III. TM distance: >3 FB. Neck ROM: full ROM without neurological symptoms. Mouth opening: adequate. Short neck: yes. Thick neck: yes DENTAL Dental findings: missing tooth/teeth and poor dentition. Additional comments: Pt. Has only 3 lower teeth and the one on the left is chipped. Additional exam findings: yes. CARDIOVASCULAR Normal cardiovascular observations. PULMONARY Normal pulmonary observations. II - ANESTHESIA PLAN ASA Score: 3 Anesthetic Plan: MAC The patient is not a current smoker. (quit 6 mos ago but continues to smoke [employer] last 4 days ago) NPO Status: adequate Monitoring plan: standard ASA. Postoperative analgesic plan: parenteral or oral opioids. Informed Consent Anesthetic risks, benefits, alternatives, personnel and consent discussed: yes. Patient / Responsible Alliance Party agrees to proceed: yes Patient / Surrogate agrees to blood products: Yes Significant changes in the patient condition since the History and Physical, not otherwise documented in primary service progress note: no. Potential Anesthesia issues that may suggest increased risk of complications or contraindication to planned procedure: potential difficult intubation. Vitals Value Taken Time BP 147/62 10/22/21 1134 Pulse 62 10/22/21 1134 Resp 13 10/22/21 1134 Temp 36.3 ?C (97.4 ?F) 10/22/21 1134 SpO2 97 % 10/22/21 1134 Outpatient Medications as of 10/22/2021 Medication Sig - peg 3350-Electrolytes (GOLYTELY) 236-22.74-6.74 -5.86 gram suspension Refer to printed prep instructions from your provider. - TURMERIC ORAL Take 1,500 mg by mouth twice daily. - CINNAMON Take 1,000 mL by mouth once daily. - ascorbic acid/collagen hydr (COLLAGEN PLUS VITAMIN C ORAL) Take 1,000 mg by mouth once daily. - PAPAYA ENZYME ORAL Take 1 capsule by mouth once daily. - OTC PRODUCT Take 1 tablet by mouth once daily. Ageless Male Max - OTC PRODUCT Take 1 tablet by mouth once daily. Super Beta Prostate Advance - dilTIAZem HCl (CARDIZEM CD) 360 mg 24 hr capsule Take 1 capsule by mouth once daily. Facility-Administere d Medications as of 10/22/2021 Medication Dose Route Frequency - lactated ringers iv infusion 75 mL/hr INTRAVENOUS CONTINUOUS I have interviewed and examined the patient. I have reviewed the medical record and/or the pre-anesthesia evaluation, pertinent labs, and test results. This contains updated information obtained within 48 hours of Surgery/Procedure. SIGNATURE: Adenike An MD PATIENT NAME: Erickson Riggs DATE: October 22, 2021 TIME: 12:18 PM CSN: [id number] [facility] BRIEF OP NOTon 10-22-2021 BRIEF OP NOT HNO ID: [id number] Author: Christy Garner MD Service: General Surgery Author Type: Physician Type: Brief Op Note Filed: 10/22/2021 1:10 PM Note Text: BRIEF OPERATIVE NOTE SURGERY DATE: 10/22/2021 Incision/Procedure Start Time: 12:50 Cecal intubation time: 12:55 Incision Close/Procedure End Time: 13:05 Surgeon(s)/Procedura list(s) and Nuclear Physicist(s): Pascual Procedures: diagnostic colonoscopy Anesthesia: MAC Findings: diverticulosis, hemorrhoids Estimated Blood Loss: 0 ml Specimens: None Complications: None Preop Diagnosis: rectal bleedgin Postop Diagnosis: same, diverticulosis, hemorrhoids SIGNATURE: Christy Garner MD PATIENT NAME: Erickson Riggs DATE: October 22, 2021 TIME: 1:09 PM [facility] HISTORY PHYSICALon HISTORY PHYSICAL HNO ID: [id number] Author: Christy Garner MD Service: General Surgery Author Type: Physician Type: HANDP Filed: 10/22/2021 11:22 AM Note Text: HISTORY AND PHYSICAL ? Erickson Riggs 1960 ? REFERRING PHYSICIAN: Mundo Plasencia MD ? CHIEF COMPLAINT: Consult (rectal bleeding) ? HPI: The patient is a 61 year old male referred for endoscopy. Erickson notes rectal bleeding. He denies pain in the area. ? He states that he had a colonoscopy greater than 10 years and it "tore him up" ? The patient states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 Phone: [facility] [employer] 08-16-2024 12:00-0400 Respiratory rate 25 /min Mars Osunaer DO Work Phone: [employer] 08-16-2024 12:00-0400 SaO2% (BldA) [Mass fraction] 94 % Mars Solano DO Work Phone: [employer] 08-16-2024 12:00-0400 Systolic blood pressure 122 mm[Hg] Mars Osunaer DO Work Phone: [employer] 08-16-2024 05:32-0400 Body mass index (BMI) [Ratio] 46.08 kg/m2 Mars Osunaer DO Work Phone: [employer] 08-16-2024 05:32-0400 Body weight 154.1 kg Mars Osunaer DO Work Phone: [facility] [employer] 08-14-2024 13:28-0400 SaO2% (BldA) [Mass fraction] 98.8 % Mars Osunaer DO Work Phone: [facility] [employer] 08-04-2024 06:20-0400 Body height 182.9 cm Mars Russ DO Work Phone: [facility] [employer] 07-21-2024 12:04-0400 Diastolic blood pressure 100 mm[Hg] Mars Solano DO Work Phone: [facility] [employer] 07-21-2024 12:04-0400 Heart rate 75 /min Mars Solano DO Work Phone: [facility] [employer] 07-21-2024 12:04-0400 Systolic blood pressure 165 mm[Hg] Mars Solano DO Work Phone: [facility] [employer] 07-21-2024 11:59-0400 Body mass index (BMI) [Ratio] 45.43 kg/m2 Mars Solano DO Work Phone: [facility] [employer] 07-21-2024 11:59-0400 Body weight 151.96 kg Mars Solano DO Work Phone: [facility] [employer] 07-04-2024 12:19-0400 Body height 182.9 cm Otfried Mahsa HARDY Work Phone: [facility] [employer] 07-04-2024 12:19-0400 Body mass index (BMI) [Ratio] 45.71 kg/m2 Otfried Mahsa HARDY Work Phone: [facility] [employer] 07-04-2024 12:19-0400 Body weight 152.86 kg Otfrradha Bragg MD Work Phone: [facility] [employer] 06-08-2024 14:00-0400 Diastolic blood pressure 103 mm[Hg] Joe Timmons MD Work Phone: [facility] [employer] 06-08-2024 14:00-0400 Heart rate 91 /min Joe Timmons MD Work Phone: [facility] [employer] 06-08-2024 14:00-0400 SaO2% (BldA) [Mass fraction] 96 % Joe Timmons MD Work Phone: [facility] [employer] 06-08-2024 14:00-0400 Systolic blood pressure 168 mm[Hg] Joe Timmons MD Work Phone: [facility] [employer] 06-08-2024 11:45-0400 Respiratory rate 16 /min Joe Timmons MD Work Phone: [facility] [employer] 06-08-2024 08:51-0400 Body temperature 97 [degF] Joe Timmons MD Work Phone: [facility] [employer] 06-01-2024 11:18-0500 Diastolic blood pressure 88 mm[Hg] Otfried Mahsa HARDY Work Phone: [facility] [employer] 06-01-2024 11:18-0500 Systolic blood pressure 152 mm[Hg] Otfried Mahsa HADRY Work Phone: [employer] 06-01-2024 11:01-0500 Body height 182.9 cm Otfried Mahsa HARDY Work Phone: [facility] [employer] 06-01-2024 11:01-0500 Body mass index (BMI) [Ratio] 45.79 kg/m2 Otfried Mahsa HARDY Work Phone: [facility] [employer] 06-01-2024 11:01-0500 Body weight 153.13 kg Otfried Mahsa HARDY Work Phone: [employer] 06-01-2024 11:01-0500 Heart rate 68 /min Otfried Mahsa HARDY Work Phone: [facility] [employer] 06-01-2024 11:01-0500 SaO2% (BldA) [Mass fraction] 97 % Otfried Mahsa HARDY Work Phone: [facility] [employer] 05-18-2024 10:34-0500 Body height 182.9 cm Mars Osunaer DO Work Phone: [employer] 05-18-2024 10:34-0500 Diastolic blood pressure 86 mm[Hg] Mars Russ DO Work Phone: [employer] 05-18-2024 10:34-0500 Heart rate 61 /min Mars Osunaer DO Work Phone: [employer] 05-18-2024 10:34-0500 Systolic blood pressure 161 mm[Hg] Mars Solano DO Work Phone: [facility] [employer] 05-18-2024 10:28-0500 Body mass index (BMI) [Ratio] 44.76 kg/m2 Mars Solano DO Work Phone: [facility] [employer] 05-18-2024 10:28-0500 Body weight 149.69 kg Mars Solano DO Work Phone: [facility] 05-04-2024 16:53-0500 Body height 183 cm Chapis Chrissie COMMERCIAL PEST CONTROL REPRESENTATIVE.PLUMBING MANAGER Work Phone: [facility] 05-04-2024 16:53-0500 Body mass index (BMI) [Ratio] 45.75 kg/m2 Chapis Chrissie COMMERCIAL PEST CONTROL REPRESENTATIVE.PLUMBING MANAGER Work Phone: [facility] 05-04-2024 16:53-0500 Body weight 153.2 kg Chapis Chrissie COMMERCIAL PEST CONTROL REPRESENTATIVE.PLUMBING MANAGER Work Phone: [facility] 05-04-2024 16:53-0500 Diastolic blood pressure 72 mm[Hg] Chapis Chrissie COMMERCIAL PEST CONTROL REPRESENTATIVE.PLUMBING MANAGER Work Phone: [facility] 05-04-2024 16:53-0500 Heart rate 66 /min Chapis Chrissie COMMERCIAL PEST CONTROL REPRESENTATIVE.PLUMBING MANAGER Work Phone: [facility] 05-04-2024 16:53-0500 Respiratory rate 12 /min Chapis Chrissie COMMERCIAL PEST CONTROL REPRESENTATIVE.PLUMBING MANAGER Work Phone: [facility] 05-04-2024 16:53-0500 SaO2% (BldA) [Mass fraction] 98 % Chapis Chrissie COMMERCIAL PEST CONTROL REPRESENTATIVE.PLUMBING MANAGER Work Phone: [facility] 05-04-2024 16:53-0500 Systolic blood pressure 134 mm[Hg] Chapis Chrissie COMMERCIAL PEST CONTROL REPRESENTATIVE.PLUMBING MANAGER Work Phone: [facility] 07-27-2023 19:15-0400 Diastolic blood pressure 78 mm[Hg] Mundo Plasencia MD Work Phone: [facility] 07-27-2023 19:15-0400 Heart rate 68 /min Mundo Plasencia MD Work Phone: [facility] 07-27-2023 19:15-0400 Systolic blood pressure 128 mm[Hg] Mundo Plasencia MD Work Phone: [facility] 07-27-2023 19:05-0400 Body mass index (BMI) [Ratio] 45.8 kg/m2 Mundo Plasencia MD Work Phone: [facility] 07-27-2023 19:05-0400 Body temperature 97.9 [degF] Mundo Plasencia MD Work Phone: [facility] 07-27-2023 19:05-0400 Body weight 151.05 kg Mundo Plasencia MD Work Phone: [facility] 07-27-2023 19:05-0400 Respiratory rate 16 /min Mundo Plasencia MD Work Phone: [facility] 04-24-2022 10:39-0500 Diastolic blood pressure 78 mm[Hg] Mundo Plasencia MD Work Phone: [facility] 04-24-2022 10:39-0500 Heart rate 62 /min Mundo Plasencia MD Work Phone: [facility] 04-24-2022 10:39-0500 Systolic blood pressure 141 mm[Hg] Mundo Plasencia MD Work Phone: [facility] 04-24-2022 10:31-0500 Body temperature 97 [degF] Mundo Plasencia MD Work Phone: [facility] 04-24-2022 10:31-0500 Body weight 138.35 kg Mundo Plasencia MD Work Phone: [facility] 04-24-2022 10:31-0500 Respiratory rate 20 /min Mundo Plasencia MD Work Phone: [facility] 03-12-2022 09:43-0500 Diastolic blood pressure 76 mm[Hg] Chapis Argueta APRNCRISTINA Work Phone: [facility] 03-12-2022 09:43-0500 Heart rate 64 /min Chapis Older COMMERCIAL PEST CONTROL REPRESENTATIVE.PLUMBING MANAGER Work Phone: [facility] 03-12-2022 09:43-0500 Systolic blood pressure 137 mm[Hg] Chapis Older COMMERCIAL PEST CONTROL REPRESENTATIVE.PLUMBING MANAGER Work Phone: [facility] 03-12-2022 09:27-0500 Body weight 135.63 kg Chapis Older COMMERCIAL PEST CONTROL REPRESENTATIVE.PLUMBING MANAGER Work Phone: [facility] 03-12-2022 09:27-0500 Respiratory rate 20 /min Chapis Older COMMERCIAL PEST CONTROL REPRESENTATIVE.PLUMBING MANAGER Work Phone: [facility] 01-10-2022 11:32-0400 Diastolic blood pressure 84 mm[Hg] Chapis Older COMMERCIAL PEST CONTROL REPRESENTATIVE.PLUMBING MANAGER Work Phone: [facility] 01-10-2022 11:32-0400 Systolic blood pressure 144 mm[Hg] Chapis Older COMMERCIAL PEST CONTROL REPRESENTATIVE.PLUMBING MANAGER Work Phone: [facility] 01-10-2022 10:54-0400 Body weight 136.08 kg Chapis Older COMMERCIAL PEST CONTROL REPRESENTATIVE.PLUMBING MANAGER Work Phone: [facility] 01-10-2022 10:54-0400 Heart rate 76 /min Chapis Older COMMERCIAL PEST CONTROL REPRESENTATIVE.PLUMBING MANAGER Work Phone: [facility] 01-10-2022 10:54-0400 Respiratory rate 16 /min Chapis Older COMMERCIAL PEST CONTROL REPRESENTATIVE.PLUMBING MANAGER Work Phone: [facility] 10-22-2021 13:25-0400 Diastolic blood pressure 68 mm[Hg] Christy Garner MD Work Phone: [facility] 10-22-2021 13:25-0400 Heart rate 52 /min Christy Garner MD Work Phone: [facility] 10-22-2021 13:25-0400 Respiratory rate 22 /min Christy Garner MD Work Phone: [facility] 10-22-2021 13:25-0400 SaO2% (BldA) [Mass fraction] 95 % Christy Garner MD Work Phone: [facility] 10-22-2021 13:25-0400 Systolic blood pressure 112 mm[Hg] Christy Garner MD Work Phone: [facility] 10-22-2021 13:11-0400 Body temperature 97.81 [degF] Christy Garner MD Work Phone: [facility] 10-11-2021 14:13-0400 Body height 181.6 cm Christy Garner MD Work Phone: [facility] 10-11-2021 14:13-0400 Body temperature 98.29 [degF] Christy Garner MD Work Phone: [facility] 10-11-2021 14:13-0400 Body weight 134.08 kg Christy Garner MD Work Phone: [facility] 10-11-2021 14:13-0400 Diastolic blood pressure 78 mm[Hg] Christy Garner MD Work Phone: [facility] 10-11-2021 14:13-0400 Heart rate 66 /min Christy Garner MD Work Phone: [facility] 10-11-2021 14:13-0400 SaO2% (BldA) [Mass fraction] 98 % Christy Garner MD Work Phone: [facility] 10-11-2021 14:13-0400 Systolic blood pressure 140 mm[Hg] Christy Garner MD Work Phone: [facility] 10-09-2021 13:57-0400 Diastolic blood pressure 82 mm[Hg] Mundo Plasencia MD Work Phone: [facility] 10-09-2021 13:57-0400 Heart rate 61 /min Mundo Plasencia MD Work Phone: [facility] 10-09-2021 13:57-0400 Systolic blood pressure 134 mm[Hg] Mundo Plasencia MD Work Phone: [facility] 10-09-2021 13:44-0400 Body height 181.9 cm Mundo Plasencia MD Work Phone: [facility] 10-09-2021 13:44-0400 Body temperature 97.5 [degF] Mundo Plasencia MD Work Phone: [facility] 10-09-2021 13:44-0400 Body weight 132.9 kg Mundo Plasencia MD Work Phone: [facility] 10-09-2021 13:44-0400 Respiratory rate 16 /min Mundo Plasencia MD Work Phone: [facility] 11-24-2016 08:23-0400 BMI (Body Mass Index) 33.09 kg/m2 Ann Castro [facility] Work Phone: 11-24-2016 08:23-0400 BP Diastolic 78 mm[Hg] [facility] Work Phone: 11-24-2016 08:23-0400 BP Systolic 122 mm[Hg] [facility] Work Phone: 11-24-2016 08:23-0400 Height 182.88 cm [facility] Work Phone: 11-24-2016 08:23-0400 Pulse (Heart Rate) 80 /min [facility] Work Phone: 11-24-2016 08:23-0400 Respiratory Rate 18 /min [facility] Work Phone: 11-24-2016 08:23-0400 Weight 110.68 kg [facility] Work Phone: 09-24-2015 13:51-0400 BP Diastolic 84 mm[Hg] Ann Castro [facility] Work Phone: 09-24-2015 13:51-0400 BP Systolic 124 mm[Hg] Ann [facility] Work Phone: 09-24-2015 13:51-0400 Pulse (Heart Rate) 72 /min [facility] Work Phone: 06-27-2014 10:38-0400 BSA (Body Surface Area) 2.32 m2 Ann Castro [facility] Work Phone: Encounters Encounter Date Encounter Type Care Provider Facility Start: 12-16-2024 ambulatory Mundo Armenta ty:[facility] Start: 11-17-2024 End: 11-17-[address] Mundo Plasencia MD Work Phone: -Laboratory Start: 11-17-2024 End: 11-17-2024 Patient encounter procedure Lawanda Honeycutt PA -Laboratory Work Phone: Start: 11-17-2024 End: 11-17-2024 ambulatory Mundo Plasencia Facility:[facility] Start: 11-15-2024 End: [facility] Start: 11-02-2024 End: 11-02-2024 Patient encounter procedure Lawanda MIRANDA -[facility] Work Phone: Start: 11-02-2024 End: 11-02-[address] Mundo Plasencia MD Work Phone: -[facility] Start: 11-01-2024 End: 11-01-2024 Office outpatient visit 25 minutes Chapis Dickens COMMERCIAL PEST CONTROL REPRESENTATIVE.PLUMBING MANAGER Work Phone: [facility] [place] Comment on above: New onset type 2 sharon betes mellitus (HCC) (Primary Dx); Paroxysmal atrial fibrillation (HCC); Primary hypertension; Chronic bronchitis, obstructive (HCC); Obesity, Class III, BMI >= 40 Start: 11-01-2024 End: 11-01-2024 ambulatory CHAPIS DICKENS Facility:[facility] Start: 10-31-2024 End: 10-31-2024 ambulatory MORGAN VERDE Facility:[facility] Start: 10-31-2024 End: 10-31-2024 Patient encounter procedure Morgan Verde MD Work Phone: Pulmonary Medicine Comment on above: COPD, mild (HCC) (Pr imary Dx); Obesity hypoventilation syndrome (HCC); Former smoker; Morbid obesity (HCC) Start: 10-31-2024 End: 10-31-2024 Patient encounter procedure Nathan Mack DE -[facility] Work Phone: Start: 10-31-2024 End: 10-31-[address] Mundo Plasencia MD Work Phone: -[facility] Start: 10-31-2024 End: 10-31-2024 ambulatory Nathan Mack Facility:[facility] Start: 10-28-2024 End: 10-28-2024 Patient encounter procedure Pulm Lab [facility] Work Phone: PULM LAB [facility] Start: 10-28-2024 End: 10-28-2024 ambulatory Pulm Lab [facility] Work Phone: PULM LAB [facility] Comment on above: Spirometry Start: 10-24-2024 ambulatory MORGAN VERDE Fac ility:[facility] Start: 10-24-2024 End: 10-24-2024 Subsequent hospital visit by physician [facility] Work Phone: Radiology Start: 10-24-2024 End: 10-24-2024 Patient encounter procedure Morgan Verde MD Work Phone: Pulmonary Medicine Comment on above: Stage 1 mild COPD by GOLD classification (HCC) (Primary Dx); Chronic respiratory failure with hypoxia and hypercapnia (HCC); Morbid obesity (HCC) Start: 10-24-2024 End: 10-24-2024 ambulatory MUNDO PLASENCIA Facility:[facility] Start: 10-11-2024 End: 10-13-2024 Telephone encounter Mundo Plasencia MD Work Phone: [facility] [place] Comment on above: Patient Update Start: 10-10-2024 End: 10-10-2024 Office outpatient visit 25 minutes Mundo Plasencia MD Work Phone: [facility] [place] Comment on above: S/P aorta repair-Eilas ve sparing aortic root, ascending aorta replacement 30mm Cardioroot graft; Left atrial appendage exclusion 40mm Atriclip; ENRIQUE (Primary Dx); New onset type 2 diabetes mellitus (HCC); Primary hypertension; Cardiomyopathy, unspecified type (HCC); Respiratory failure with hypoxia, unspecified chronicity (HCC); Paroxysmal atrial fibrillation (HCC) Start: 10-10-2024 End: 10-10-2024 ambulatory MUNDO PLASENCIA Facility:[facility] Start: 10-06-2024 End: 10-06-2024 Orders Only Aj Quiles PA-C Work Phone: Urology Comment on above: Acute cystitis witho ut hematuria (Primary Dx) Patient Update Start: 10-05-2024 End: 10-05-2024 Telephone encounter Mundo Plasencia MD Work Phone: [facility] [place] Comment on above: Erroneous encounter- disregard Start: 10-03-2024 End: 10-06-2024 Telephone encounter Mundo Plasencia MD Work Phone: [facility] [place] Comment on above: discharged from PT Refill Request; Medi cation Problem (Patient is out of medication) Start: 09-29-2024 End: 09-29-[address] Mundo Plasencia MD Work Phone: -Laboratory Start: 09-29-2024 End: 09-29-2024 Patient encounter procedure Nathan Mack PA -Laboratory Work Phone: Start: 09-29-2024 End: 09-29-2024 ambulatory Nathan Mack Facility:[facility] Start: 09-28-2024 End: 09-28-2024 Telephone encounter Mundo Plasencia MD Work Phone: [facility] [place] Comment on above: Orders for Weaning o ff Home )2 Start: 09-20-2024 End: 09-20-[address] Mundo Plasencia MD Work Phone: -Laboratory Start: 09-20-2024 End: 09-20-2024 Patient encounter procedure Nathan Mack PA -Laboratory Work Phone: Start: 09-20-2024 End: 09-20-2024 Patient encounter procedure Nathan MIRANDA -[facility] Work Phone: Start: 09-20-2024 End: 09-20-[address] Mundo Plasencia MD Work Phone: [facility] Work Phone: Start: 09-20-2024 End: 09-20-2024 ambulatory Mundo Plasencia Facility:[facility] Start: 09-19-2024 End: 09-19-2024 Documentation procedure Henrietta Roche RN [facility] borative Comment on above: [facility] Start: 09-15-2024 End: 09-15-2024 Patient encounter procedure Aj Quiles PA-C Work Phone: Urology Comment on above: Benign prostatic hyp erplasia with urinary retention (Primary Dx) Start: 09-15-2024 End: 09-15-2024 ambulatory AJ QUILES Facility:[facility] Start: 09-13-2024 End: 09-13-2024 Telephone encounter Mundo Plasencia MD Work Phone: [facility] [place] Comment on above: [facility] requesting verbal Start: 09-09-2024 End: 09-09-2024 Telephone encounter Mike Bucio MD Work Phone: [facility] Nod[facility] Start: 09-08-2024 End: 09-08-2024 Office outpatient visit 40 minutes Mundo Plasencia MD Work Phone: [facility] [place] Comment on above: History of ascending aorta repair (Primary Dx); New onset type 2 diabetes mellitus (HCC); Cardiomyopathy, unspecified type (HCC); Primary hypertension; Respiratory failure with hypoxia, unspecified chronicity (HCC); SONIA (obstructive sleep apnea) intolerant to CPAP; Urine retention; Paroxysmal atrial fibrillation (HCC); Delirium; Anemia, unspecified type; S/P aorta repair-Valve sparing aortic root, ascending aorta replacement 30mm Cardioroot graft; Left atrial appendage exclusion 40mm Atriclip; ENRIQUE; Chronic bronchitis, obstructive (HCC); Gastroesophageal reflux disease, unspecified whether esophagitis present; BPH with obstruction/lower urinary tract symptoms Start: 09-08-2024 End: 09-08-2024 ambulatory MUNDO PLASENCIA Facility:[facility] Start: 09-06-2024 End: 09-07-2024 Telephone encounter Mundo Plasencia MD Work Phone: [facility] [place] Comment on above: Home Health Nursing- Plan of Care PT plan of care, req uest verbal order Start: 09-05-2024 End: 09-23-[facility] Aj Ballard MD Work Phone: [facility] Comment on above: Acute on chronic res piratory failure with hypoxia and hypercapnia (HCC) (Primary Dx); Chronic obstructive pulmonary disease, unspecified COPD type (HCC) Start: 09-04-2024 End: 09-04-2024 ambulatory Sincere Somers MD Work Phone: [facility] Pulmonary and Sleep Medicine [facility] Comment on above: Mucopurulent chronic bronchitis (HCC) (Primary Dx); SONIA (obstructive sleep apnea); Acute on chronic systolic congestive heart failure (HCC) Start: 09-03-2024 End: 09-03-2024 ambulatory Sincere Somers MD Work Phone: [facility] Pulmonary [facility] Sleep Medicine [facility] Comment on above: Mucopurulent chronic bronchitis (HCC) (Primary Dx); SONIA (obstructive sleep apnea); Acute on chronic systolic congestive heart failure (HCC) Start: 09-02-2024 End: 09-02-2024 ambulatory Sincere Somers MD Work Phone: [facility] Pulmonary and Sleep Medicine [facility] Comment on above: Mucopurulent chronic bronchitis (HCC) (Primary Dx); SONIA (obstructive sleep apnea); Acute on chronic systolic congestive heart failure (HCC) Start: 09-02-2024 End: 09-02-2024 Telephone encounter Mundo Plasencia MD Work Phone: [facility] [place] Comment on above: Orders Start: 09-01-2024 End: 09-01-2024 ambulatory Sincere Somers MD Work Phone: [facility] Pulmonary and Sleep Medicine [facility] Comment on above: Mucopurulent chronic bronchitis (HCC) (Primary Dx); SONIA (obstructive sleep apnea); Acute on chronic systolic congestive heart failure (HCC) Start: 08-31-2024 End: 08-31-2024 Postop follow up visit related to original px Russel PratimaCorbin Nunez APRN - PLUMBING MANAGER Work Phone: [facility] Cardiovascular [facility] [place] Comment on above: S/P aorta repair (Pr imary Dx) Start: 08-31-2024 End: 08-31-2024 ambulatory Sincere Somers MD Work Phone: [facility] Pulmonary and Sleep Medicine [facility] Comment on above: Mucopurulent chronic bronchitis (HCC) (Primary Dx); SONIA (obstructive sleep apnea); Acute on chronic systolic congestive heart failure (HCC) Start: 08-30-2024 End: 08-30-2024 ambulatory Sincere Somers MD Work Phone: [facility] Pulmonary and Sleep Medicine [facility] Comment on above: Mucopurulent chronic bronchitis (HCC) (Primary Dx); SONIA (obstructive sleep apnea); Acute on chronic systolic congestive heart failure (HCC) Start: 08-29-2024 End: 08-29-2024 ambulatory Sincere Somers MD Work Phone: [facility] Pulmonary and Sleep Medicine [facility] Comment on above: Mucopurulent chronic bronchitis (HCC) (Primary Dx); SONIA (obstructive sleep apnea); Acute on chronic systolic congestive heart failure (HCC) Start: 08-26-2024 End: 08-26-2024 ambulatory Mike Bucio MD Work Phone: [facility] Start: 08-25-2024 End: 08-25-2024 ambulatory Mike Bucio MD Work Phone: [facility] Start: 08-24-2024 End: 08-24-2024 ambulatory Mike Bucio MD Work Phone: [facility] Start: 08-23-2024 End: 08-23-2024 ambulatory Mike Bucio MD Work Phone: [facility] Start: 08-23-2024 End: 08-23-2024 Documentation procedure [facility] Start: 08-09-2024 End: 08-09-2024 Telephone encounter Chapis Dickens APRN.PLUMBING MANAGER Work Phone: [facility] [place] Comment on above: Question Start: 08-09-2024 ambulatory [facility] Start: 08-03-2024 End: 08-16-2024 Evaluation and management of inpatient Mars Solano DO Work Phone: [facility] Cardiac Thoracic Vascular Intensive Care Unit CTV ICU T1 Start: 07-27-2024 End: 07-29-2024 Telephone encounter Mundo Plasencia MD Work Phone: [facility] [place] Comment on above: Results (New diagnos is of diabetes mellitus. Labs from [facility]) Start: 07-27-2024 End: 07-27-2024 Subsequent hospital visit by physician Yayo Xr Exam Room 1 [facility] X-Ray Comment on above: Arrived Start: 07-27-2024 End: 07-27-2024 ambulatory MUNDO PLASENCIA [facility] Start: 07-27-2024 End: 07-27-2024 Encounter for other preprocedural examination MARS SOLANO [facility] Start: 07-24-2024 End: 07-24-2024 Admission to same day surgery center Russel Nunez COMMERCIAL PEST CONTROL REPRESENTATIVE - PLUMBING MANAGER Work Phone: [facility] Comment on above: Aneurysm of the asce nding aorta, without rupture (HCC) (Primary Dx); Aneurysm of ascending aorta without rupture (HCC) Start: 07-24-2024 End: 07-24-2024 ambulatory Russel Nunez COMMERCIAL PEST CONTROL REPRESENTATIVE - PLUMBING MANAGER Work Phone: [facility] Start: 07-22-2024 End: 07-24-2024 Telephone encounter Mars Solano DO Work Phone: [facility] [facility] Comment on above: Surgery Scheduling Start: 07-22-2024 End: 07-22-2024 Subsequent hospital visit by physician Mars Solano DO Work Phone: [facility] [facility] Comment on above: SONIA (obstructive sle ep apnea) Start: 07-22-2024 End: 07-22-2024 ambulatory MARS RUSS [facility] Start: 07-21-2024 End: 07-21-2024 Office outpatient visit 25 minutes Mars Solano DO Work Phone: [facility] Thoracic [facility] - [place] Comment on above: Aneurysm of ascendin g aorta without rupture (HCC) (Primary Dx); Morbid obesity (HCC); Essential hypertension; Shortness of breath Start: 07-21-2024 End: 07-21-2024 ambulatory General acute hospital Start: 07-13-2024 End: 07-13-2024 Refill Mundo Plasencia MD Work Phone: [address] [place] [address] Comment on above: Refill Request Start: 07-04-2024 End: 07-04-2024 Subsequent hospital visit by physician Aashish Bragg MD Work Phone: [facility] [address] Non-Invasive Cardiology Comment on above: Aneurysm of ascendin g aorta without rupture (HCC) Start: 07-04-2024 End: 07-04-2024 ambulatory [facility] Start: 06-08-2024 End: 06-08-2024 ambulatory General acute hospital Start: 06-08-2024 End: 06-08-2024 Subsequent hospital visit by physician Joe Timmons MD Work Phone: [facility] Cath/EP Lab Comment on above: Aneurysm of ascendin g aorta without rupture (HCC) Start: 06-03-2024 End: 06-03-2024 ambulatory Stephenie Dubon APRN - PLUMBING MANAGER Work Phone: [facility] Start: 06-01-2024 End: 06-10-2024 Telephone encounter Aashish Bragg MD Work Phone: [facility] Cardiology [facility] Comment on above: Procedure (CATH sche dule) Start: 06-01-2024 End: 06-01-2024 ambulatory MUNDO PLASENCIA [facility] Start: 06-01-2024 End: 06-01-2024 Office outpatient new 60 minutes Aashish Bragg MD Work Phone: [facility] - [place] Comment on above: Aneurysm of ascendin g aorta without rupture (HCC) Start: 06-01-2024 End: 06-01-2024 ambulatory MARS SOLANO [facility] Start: 05-18-2024 End: 05-18-2024 Office consultation new/estab patient 60 min Mars Solano Work Phone: [facility] Thoracic [facility] - [place] Comment on above: Aneurysm of ascendin g aorta without rupture (HCC) (Primary Dx); Chest pain, unspecified type; Morbid obesity (HCC); SONIA (obstructive sleep apnea); Primary hypertension; Hx of arterial ischemic stroke Start: 05-18-2024 End: 05-18-2024 ambulatory MARS SOLANO [facility] Start: 05-04-2024 End: 05-04-2024 ambulatory CHAPIS DICKENS Facility:[facility] Start: 05-04-2024 End: 05-04-2024 Patient encounter procedure Chapis Dickens APRN.CNP Work Phone: [facility] [place] Comment on above: Medicare annual well ness visit, subsequent (Primary Dx); Nodule of left lung; Chronic bronchitis, obstructive (HCC); Paroxysmal atrial fibrillation (HCC); Ascending aorta dilation (HCC); Cardiomyopathy, unspecified type (HCC); Obesity, Class III, BMI 40-49.9 (morbid obesity) (HCC); Screening for depression; Encounter for screening examination for other mental health and behavioral disorders; BPH with obstruction/lower urinary tract symptoms; Primary hypertension Start: 04-26-2024 End: 04-26-2024 ambulatory Alcides MIRANDA Facility:[facility] Start: 04-08-2024 End: 04-14-2024 Refill Mundo Plasencia MD Work Phone: [facility] [place] Comment on above: Refill Request Start: 07-27-2023 End: 07-27-2023 Patient encounter procedure Mundo Plasencia MD Work Phone: [facility] [place] Comment on above: Chest pain, unspecif ied type (Primary Dx); Cardiomyopathy, unspecified type (HCC); Primary hypertension; Ascending aorta dilation (HCC); Paroxysmal atrial fibrillation (HCC); Chronic bronchitis, obstructive (HCC) Start: 07-27-2023 Telephone encounter Mundo garcia MD Work Phone: [facility] [place] Comment on above: Patient Update Start: 04-03-2023 End: 04-03-2023 ambulatory [facility] Work Phone: Start: 04-03-2023 End: 04-03-2023 Patient encounter procedure [facility]-Cat Scan, [facility] Work Phone: Start: 09-22-2022 Refill Mundo vergara MD Work Phone: [facility] [place] Comment on above: Refill Request Start: 07-04-2022 Telephone encounter Chapis Argueta APRN.CNP Work Phone: [facility] [place] Comment on above: Blood Pressure Check Start: 07-04-2022 End: 07-04-2022 Patient encounter procedure Chapis Argueta APRN.PLUMBING MANAGER Work Phone: [facility] [place] Comment on above: Essential hypertensi on (Primary Dx) Start: 04-24-2022 End: 04-24-2022 Subsequent hospital visit by physician [facility] Work Phone: Radiology Comment on above: Chest pain, unspecif ied type [R07.9] Start: 04-24-2022 End: 04-24-2022 Patient encounter procedure Mundo Plasencia MD Work Phone: [facility] [place] Comment on above: Chest pain, unspecif ied type (Primary Dx); Ascending aorta dilation (HCC); Paroxysmal atrial fibrillation (HCC); Primary hypertension Start: 04-02-2022 Refill Mundo vergara MD Work Phone: [facility] [place] Comment on above: Refill Request Start: 03-12-2022 End: 03-12-2022 Patient encounter procedure Chapis Older [employer]ERCIAL PEST CONTROL REPRESENTATIVE.PLUMBING MANAGER Work Phone: [facility] [place] Comment on above: Primary hypertension (Primary Dx) Start: 01-10-2022 End: 01-10-2022 Patient encounter procedure Chapis Older COMMERCIAL PEST CONTROL REPRESENTATIVE.PLUMBING MANAGER Work Phone: [facility] [place] Comment on above: Primary hypertension (Primary Dx) Start: 10-22-2021 End: 10-22-2021 Subsequent hospital visit by physician Christy Garner MD Work Phone: [facility] Comment on above: Painless rectal blee ding [K62.5] Start: 10-14-2021 Telephone encounter Christy Cuello MD Work Phone: General Surgery Comment on above: 10/22 COLON LODI Start: 10-11-2021 End: 10-11-2021 Patient encounter procedure Christy Garner MD Work Phone: General Surgery Comment on above: Painless rectal blee ding Start: 10-09-2021 End: 10-09-2021 Patient encounter procedure Mundo Plasencia MD Work Phone: [facility] [place] Comment on above: Routine medical exam (Primary Dx); Primary hypertension; Ascending aorta dilation (HCC); Paroxysmal atrial fibrillation (HCC); BPH with obstruction/lower urinary tract symptoms; Chronic bronchitis, obstructive (HCC); Obesity, Class III, BMI 40-49.9 (morbid obesity) (HCC); Painless rectal bleeding Start: 10-09-2021 End: 10-09-2021 Patient encounter status Mundo Plasencia MD Work Phone: [facility] [place] Start: 08-16-2021 Refill Mundo vergara MD Work Phone: [facility] [place] Comment on above: Prescription Refills Start: 01-02-2021 End: 01-02-2021 Subsequent hospital visit by physician Robson [facility] [place] Work Phone: Radiology Comment on above: Chronic bronchitis, obstructive (HCC) [J44.9] Start: 07-10-2020 End: 07-10-2020 Subsequent hospital visit by physician Xr [facility] [place] Work Phone: Radiology Comment on above: Elbow swelling, left [M25.422] Start: 06-27-2020 End: 06-27-2020 Subsequent hospital visit by physician Xr [facility] [place] Work Phone: Radiology Comment on above: Chronic bronchitis, unspecified chronic bronchitis type (HCC) [J42] Start: 06-10-2017 End: 06-10-2017 Emergency department patient visit ADRIAN ALMONTE Facility:[facility] Start: 12-01-2016 End: 12-01-2016 Emergency department patient visit BRAULIO SMITH Facility:[facility] Procedures Date Procedure Procedure Detail Performing Clinician Start: 11-17-2024 Total iron binding c apacity measurement Dr. Mundo Plasencia MD Work Phone: Start: 10-28-2024 Brncdilat rspse spmt ry pre&post-brncdilat admn Morgan Verde MD Work Phone: Start: 08-16-2024 Glucose quantitative blood xcpt reagent strip Mars Solano DO Work Phone: Start: 08-16-2024 Glucose quantitative blood xcpt reagent strip Mars Solano DO Work Phone: Start: 08-16-2024 Radiologic exam ches t single view Russel Nunez APRN - PLUMBING MANAGER Work Phone: Start: 08-16-2024 Basic metabolic pane l calcium total Russel Nunez COMMERCIAL PEST CONTROL REPRESENTATIVE - PLUMBING MANAGER Work Phone: Start: 08-15-2024 Glucose quantitative blood xcpt reagent strip Mars Solano DO Work Phone: Start: 08-15-2024 Ecg routine ecg w/le ast 12 lds trcg only w/o i&r Russel Nunez COMMERCIAL PEST CONTROL REPRESENTATIVE - PLUMBING MANAGER Work Phone: Start: 08-15-2024 Glucose quantitative blood xcpt reagent strip Mars Solano DO Work Phone: Start: 08-15-2024 Us retroperitoneal r eal time w/image complete Christian Moralez MD Work Phone: Start: 08-15-2024 Radiologic exam ches t single view Russel Nunez COMMERCIAL PEST CONTROL REPRESENTATIVE - PLUMBING MANAGER Work Phone: Start: 08-15-2024 Glucose quantitative blood xcpt reagent strip Mars Solano DO Work Phone: Start: 08-15-2024 Basic metabolic pane l calcium total Keesha Jessica COMMERCIAL PEST CONTROL REPRESENTATIVE - PLUMBING MANAGER Work Phone: Start: 08-14-2024 Glucose quantitative blood xcpt reagent strip Mars Solano DO Work Phone: Start: 08-14-2024 Glucose quantitative blood xcpt reagent strip Mars Solano DO Work Phone: Start: 08-14-2024 Culture bacterial quanttative colony count urine Keesha Jessica COMMERCIAL PEST CONTROL REPRESENTATIVE - PLUMBING MANAGER Work Phone: Start: 08-14-2024 Ct cervical spine w/ o contrast material Keesha Martelltravisamber COMMERCIAL PEST CONTROL REPRESENTATIVE - PLUMBING MANAGER Work Phone: Start: 08-14-2024 Ct head/brain w/o co ntrast material Keesha Jessica COMMERCIAL PEST CONTROL REPRESENTATIVE - PLUMBING MANAGER Work Phone: Start: 08-14-2024 Radiologic exam ches t single view Keesha Jessica COMMERCIAL PEST CONTROL REPRESENTATIVE - PLUMBING MANAGER Work Phone: Start: 08-14-2024 Radiologic examinati on pelvis 1/2 views Keesha Jessica COMMERCIAL PEST CONTROL REPRESENTATIVE - PLUMBING MANAGER Work Phone: Start: 08-14-2024 Blood gases any comb ination ph pco2 po2 co2 hco3 Keesha Jessica COMMERCIAL PEST CONTROL REPRESENTATIVE - PLUMBING MANAGER Work Phone: Start: 08-14-2024 Glucose quantitative blood xcpt reagent strip Mars Solano DO Work Phone: Start: 08-14-2024 End: 08-14-2024 Basic metabolic panel calcium total Keesha Jessica COMMERCIAL PEST CONTROL REPRESENTATIVE - PLUMBING MANAGER Work Phone: Start: 08-14-2024 Glucose quantitative blood xcpt reagent strip Mars Solano DO Work Phone: Start: 08-14-2024 Radiologic exam ches t single view Russel Nunez COMMERCIAL PEST CONTROL REPRESENTATIVE - PLUMBING MANAGER Work Phone: Start: 08-14-2024 Basic metabolic pane l calcium total Keesha Jessica COMMERCIAL PEST CONTROL REPRESENTATIVE - PLUMBING MANAGER Work Phone: Start: 08-13-2024 Glucose quantitative blood xcpt reagent strip Mars Solano DO Work Phone: Start: 08-13-2024 Glucose quantitative blood xcpt reagent strip Mars Russ DO Work Phone: Start: 08-13-2024 End: 08-13-2024 Basic metabolic panel calcium total Keesha Rvier Aracely COMMERCIAL PEST CONTROL REPRESENTATIVE - PLUMBING MANAGER Work Phone: Start: 08-13-2024 Ecg routine ecg w/le ast 12 lds trcg only w/o i&r Keesha Aleta Jessica COMMERCIAL PEST CONTROL REPRESENTATIVE - PLUMBING MANAGER Work Phone: Start: 08-13-2024 Glucose quantitative blood xcpt reagent strip Mars Russ DO Work Phone: Start: 08-13-2024 OXYGEN THERAPY Bienvenido martinez MD Work Phone: Start: 08-13-2024 Radiologic exam ches t single view Russel Nunez COMMERCIAL PEST CONTROL REPRESENTATIVE - PLUMBING MANAGER Work Phone: Start: 08-13-2024 Ecg routine ecg w/le ast 12 lds trcg only w/o i&r Keesha Aleta Jessica COMMERCIAL PEST CONTROL REPRESENTATIVE - PLUMBING MANAGER Work Phone: Start: 08-13-2024 Basic metabolic pane l calcium total Keesha Aleta Jessica COMMERCIAL PEST CONTROL REPRESENTATIVE - PLUMBING MANAGER Work Phone: Start: 08-12-2024 Glucose quantitative blood xcpt reagent strip Mars Solano DO Work Phone: Start: 08-12-2024 OXYGEN THERAPY Bienvenido martinez MD Work Phone: Start: 08-12-2024 Glucose quantitative blood xcpt reagent strip Mars Solano DO Work Phone: Start: 08-12-2024 Radiologic exam ches t single view Keesha Jessica COMMERCIAL PEST CONTROL REPRESENTATIVE - PLUMBING MANAGER Work Phone: Start: 08-12-2024 Basic metabolic pane l calcium total Russel Nunez COMMERCIAL PEST CONTROL REPRESENTATIVE - PLUMBING MANAGER Work Phone: Start: 08-12-2024 Thoracentesis needle /cath pleura w/imaging Keesha Jessica COMMERCIAL PEST CONTROL REPRESENTATIVE - PLUMBING MANAGER Work Phone: Start: 08-12-2024 Glucose quantitative blood xcpt reagent strip Mars Russ DO Work Phone: Start: 08-12-2024 OXYGEN THERAPY Bienvenido martinez MD Work Phone: Start: 08-12-2024 Glucose quantitative blood xcpt reagent strip Mars Russ DO Work Phone: Start: 08-12-2024 Radiologic exam ches t single view Russel Viera Terrence COMMERCIAL PEST CONTROL REPRESENTATIVE - PLUMBING MANAGER Work Phone: Start: 08-12-2024 Assay of magnesium Russel PratimaCorbin Nunez COMMERCIAL PEST CONTROL REPRESENTATIVE - PLUMBING MANAGER Work Phone: Start: 08-11-2024 OXYGEN THERAPY Bienvenido martinez MD Work Phone: Start: 08-11-2024 Potassium serum plasma/whole blood Russel AndujarCorbin Nunez COMMERCIAL PEST CONTROL REPRESENTATIVE - PLUMBING MANAGER Work Phone: Start: 08-11-2024 Glucose quantitative blood xcpt reagent strip Mars Russ DO Work Phone: Start: 08-11-2024 Basic metabolic pane l calcium total Russel Viera Terrence COMMERCIAL PEST CONTROL REPRESENTATIVE - PLUMBING MANAGER Work Phone: Start: 08-11-2024 Glucose quantitative blood xcpt reagent strip Mars Solano DO Work Phone: Start: 08-11-2024 Glucose quantitative blood xcpt reagent strip Mars Solano DO Work Phone: Start: 08-11-2024 Radiologic exam ches t single view Russel Viera Terrence COMMERCIAL PEST CONTROL REPRESENTATIVE - PLUMBING MANAGER Work Phone: Start: 08-11-2024 OXYGEN THERAPY Bienvenido martinez MD Work Phone: Start: 08-11-2024 Ecg routine ecg w/le ast 12 lds trcg only w/o i&r Riki Abraham DO Work Phone: Start: 08-11-2024 Assay of magnesium Russel Nunez COMMERCIAL PEST CONTROL REPRESENTATIVE - PLUMBING MANAGER Work Phone: Start: 08-10-2024 Ecg routine ecg w/le ast 12 lds trcg only w/o i&r Mars Solano DO Work Phone: Start: 08-10-2024 Basic metabolic pane l calcium total Russel PratimaCorbin Nunez COMMERCIAL PEST CONTROL REPRESENTATIVE - PLUMBING MANAGER Work Phone: Start: 08-10-2024 OXYGEN THERAPY Bienvenido martinez MD Work Phone: Start: 08-10-2024 Glucose quantitative blood xcpt reagent strip Mars Russ DO Work Phone: Start: 08-10-2024 Glucose quantitative blood xcpt reagent strip Mars Osunaer DO Work Phone: Start: 08-10-2024 Glucose quantitative blood xcpt reagent strip Mars Russ DO Work Phone: Start: 08-10-2024 Glucose quantitative blood xcpt reagent strip Mars Russ DO Work Phone: Start: 08-10-2024 OXYGEN THERAPY Bienvenido martinez MD Work Phone: Start: 08-10-2024 Radiologic exam ches t single view Russel Nunez COMMERCIAL PEST CONTROL REPRESENTATIVE - PLUMBING MANAGER Work Phone: Start: 08-10-2024 Basic metabolic pane l calcium total Mars Russ DO Work Phone: Start: 08-10-2024 Blood gases any comb ination ph pco2 po2 co2 hco3 Miller Saavedra MD Work Phone: Start: 08-09-2024 End: 08-09-2024 Basic metabolic panel calcium total Russel Nunez COMMERCIAL PEST CONTROL REPRESENTATIVE - PLUMBING MANAGER Work Phone: Start: 08-09-2024 OXYGEN THERAPY Bienvenido martinez MD Work Phone: Start: 08-09-2024 Radiologic exam ches t single view Mars Solano DO Work Phone: Start: 08-09-2024 Glucose quantitative blood xcpt reagent strip Mars Solano DO Work Phone: Start: 08-09-2024 Glucose quantitative blood xcpt reagent strip Mars Solano DO Work Phone: Start: 08-09-2024 End: 08-09-2024 Blood gases any combination ph pco2 po2 co2 hco3 Derian Arthur Inder DO Work Phone: Start: 08-09-2024 Smr prim src gram/gi emsa stain bct fungi/cell Christian Hiren COMMERCIAL PEST CONTROL REPRESENTATIVE - PLUMBING MANAGER Work Phone: Start: 08-09-2024 Glucose quantitative blood xcpt reagent strip Mars Solano DO Work Phone: Start: 08-09-2024 Radiologic exam ches t single view Russel Priceosvaldo COMMERCIAL PEST CONTROL REPRESENTATIVE - PLUMBING MANAGER Work Phone: Start: 08-09-2024 Basic metabolic pane l calcium total Christian Maradiaga COMMERCIAL PEST CONTROL REPRESENTATIVE - PLUMBING MANAGER Work Phone: Start: 08-08-2024 Ecg routine ecg w/le ast 12 lds trcg only w/o i&r Morgan Barrera DO Work Phone: Start: 08-08-2024 Basic metabolic pane l calcium total Christian Hiren COMMERCIAL PEST CONTROL REPRESENTATIVE - PLUMBING MANAGER Work Phone: Start: 08-08-2024 Glucose quantitative blood xcpt reagent strip Mars Solano DO Work Phone: Start: 08-08-2024 OXYGEN THERAPY Bienvenido martinez MD Work Phone: Start: 08-08-2024 Basic metabolic pane l calcium total Christian Maradiaga COMMERCIAL PEST CONTROL REPRESENTATIVE - PLUMBING MANAGER Work Phone: Start: 08-08-2024 Glucose quantitative blood xcpt reagent strip Mars Solano DO Work Phone: Start: 08-08-2024 Basic metabolic pane l calcium total Christian Maradiaga APRN - PLUMBING MANAGER Work Phone: Start: 08-08-2024 Glucose quantitative blood xcpt reagent strip Mars Solano DO Work Phone: Start: 08-08-2024 Radiologic exam ches t single view Russel Nunez COMMERCIAL PEST CONTROL REPRESENTATIVE - PLUMBING MANAGER Work Phone: Start: 08-08-2024 Basic metabolic pane l calcium total Christian Maradiaga COMMERCIAL PEST CONTROL REPRESENTATIVE - PLUMBING MANAGER Work Phone: Start: 08-08-2024 Ecg routine ecg w/le ast 12 lds trcg only w/o i&r Prakash Doe MD Work Phone: Start: 08-07-2024 Basic metabolic pane l calcium total Christian Jameser COMMERCIAL PEST CONTROL REPRESENTATIVE - PLUMBING MANAGER Work Phone: Start: 08-07-2024 Basic metabolic pane l calcium total Christian Maradiaga APRN - PLUMBING MANAGER Work Phone: Start: 08-07-2024 Glucose quantitative blood xcpt reagent strip Mars Solano DO Work Phone: Start: 08-07-2024 Respiratory pathogen s DNA and RNA panel - Nasopharynx by BRIAN with non-probe detection Christian Jameser COMMERCIAL PEST CONTROL REPRESENTATIVE - PLUMBING MANAGER Work Phone: Start: 08-07-2024 Iadna s aureus methi cillin resist amp probe tq Christian Jameser COMMERCIAL PEST CONTROL REPRESENTATIVE - PLUMBING MANAGER Work Phone: Start: 08-07-2024 LEGIONELLA AND STREPTOCOCCUS URINE ANTIGEN, ORDERABLE Christian Hiren COMMERCIAL PEST CONTROL REPRESENTATIVE - PLUMBING MANAGER Work Phone: Start: 08-07-2024 URINE HOLD CUP Christian garcia COMMERCIAL PEST CONTROL REPRESENTATIVE - PLUMBING MANAGER Work Phone: Start: 08-07-2024 Glucose quantitative blood xcpt reagent strip Mars Solano DO Work Phone: Start: 08-07-2024 Ecg routine ecg w/le ast 12 lds trcg only w/o i&r Christian Miller CNP Work Phone: Start: 08-07-2024 End: 08-07-2024 Comprehensive metabolic panel Christian Miller CNP Work Phone: Start: 08-07-2024 Radiologic exam ches t single view Russel AndujarCorbin Nunez COMMERCIAL PEST CONTROL REPRESENTATIVE - PLUMBING MANAGER Work Phone: Start: 08-07-2024 Comprehensive metabo lic panel Christian Miller CNP Work Phone: Start: 08-06-2024 Glucose quantitative blood xcpt reagent strip Mars Solano DO Work Phone: Start: 08-06-2024 End: 08-06-2024 Basic metabolic panel calcium total Christian Miller CNP Work Phone: Start: 08-06-2024 End: 08-06-2024 Assay of osmolality urine Christian Miller CNP Work Phone: Start: 08-06-2024 SPECIFIC GRAVITY, UR INE DIPSTICK Christian Maradiaga APRN - PLUMBING MANAGER Work Phone: Start: 08-06-2024 Comprehensive metabo lic panel Christian Miller CNP Work Phone: Start: 08-06-2024 Glucose quantitative blood xcpt reagent strip Mars Solano DO Work Phone: Start: 08-06-2024 Radiologic exam ches t single view Russel Viera Terrence COMMERCIAL PEST CONTROL REPRESENTATIVE - PLUMBING MANAGER Work Phone: Start: 08-06-2024 End: 08-06-2024 Comprehensive metabolic panel Russel AndujarCorbin Nunez COMMERCIAL PEST CONTROL REPRESENTATIVE - PLUMBING MANAGER Work Phone: Start: 08-05-2024 Glucose quantitative blood xcpt reagent strip Mars Solano DO Work Phone: Start: 08-05-2024 Glucose quantitative blood xcpt reagent strip Mars Solano DO Work Phone: Start: 08-05-2024 End: 08-05-2024 Basic metabolic panel calcium total Russel PratimaCorbin Nunez COMMERCIAL PEST CONTROL REPRESENTATIVE - PLUMBING MANAGER Work Phone: Start: 08-05-2024 Glucose quantitative blood xcpt reagent strip Mars Solano DO Work Phone: Start: 08-05-2024 Glucose quantitative blood xcpt reagent strip Mars Solano DO Work Phone: Start: 08-05-2024 End: 08-05-2024 Glucose quantitative blood xcpt reagent strip Mars Solaon DO Work Phone: Start: 08-05-2024 Ecg routine ecg w/le ast 12 lds trcg only w/o i&r Mars Solano DO Work Phone: Start: 08-05-2024 Radiologic exam ches t single view Russel Beyjaniya COMMERCIAL PEST CONTROL REPRESENTATIVE - PLUMBING MANAGER Work Phone: Start: 08-05-2024 Glucose quantitative blood xcpt reagent strip Mars Solano DO Work Phone: Start: 08-05-2024 End: 08-05-2024 Basic metabolic panel calcium total Russel Pricetrisharadha COMMERCIAL PEST CONTROL REPRESENTATIVE - PLUMBING MANAGER Work Phone: Start: 08-05-2024 End: 08-05-2024 Glucose quantitative blood xcpt reagent strip Mars Solano DO Work Phone: Start: 08-04-2024 End: 08-05-2024 Glucose quantitative blood xcpt reagent strip Mars Solano DO Work Phone: Start: 08-04-2024 End: 08-04-2024 Calcium ionized Russel Beytashiradha APR N - PLUMBING MANAGER Work Phone: Start: 08-04-2024 End: 08-04-2024 Basic metabolic panel calcium total Mars Solano DO Work Phone: Start: 08-04-2024 Ecg routine ecg w/le ast 12 lds trcg only w/o i&r Prakash Doe MD Work Phone: Start: 08-04-2024 Radiologic exam ches t single view Prakash Doe MD Work Phone: Start: 08-04-2024 Glucose quantitative blood xcpt reagent strip Mars Solano DO Work Phone: Start: 08-04-2024 Blood gases any comb ination ph pco2 po2 co2 hco3 Russel Nunez COMMERCIAL PEST CONTROL REPRESENTATIVE - PLUMBING MANAGER Work Phone: Start: 08-04-2024 End: 08-04-2024 Glucose quantitative blood xcpt reagent strip Mars Solano DO Work Phone: Start: 08-04-2024 Glucose quantitative blood xcpt reagent strip Mars Solano DO Work Phone: Start: 08-04-2024 End: 08-04-2024 Basic metabolic panel calcium total Russel Nunez COMMERCIAL PEST CONTROL REPRESENTATIVE - PLUMBING MANAGER Work Phone: Start: 08-04-2024 Glucose quantitative blood xcpt reagent strip Mars Solano DO Work Phone: Start: 08-04-2024 End: 08-04-2024 Glucose quantitative blood xcpt reagent strip Mars Solano DO Work Phone: Start: 08-04-2024 End: 08-04-2024 Glucose quantitative blood xcpt reagent strip Mars Solano DO Work Phone: Start: 08-04-2024 Glucose quantitative blood xcpt reagent strip Mars Solano DO Work Phone: Start: 08-04-2024 Glucose quantitative blood xcpt reagent strip Mars Solano DO Work Phone: Start: 08-04-2024 Glucose quantitative blood xcpt reagent strip Mars Solano DO Work Phone: Start: 08-04-2024 Radiologic exam ches t single view Russel Beyjaniya COMMERCIAL PEST CONTROL REPRESENTATIVE - PLUMBING MANAGER Work Phone: Start: 08-04-2024 End: 08-04-2024 Basic metabolic panel calcium total Prakash Doe MD Work Phone: Start: 08-04-2024 End: 08-04-2024 Glucose quantitative blood xcpt reagent strip Mars Solano DO Work Phone: Start: 08-04-2024 Ecg routine ecg w/le ast 12 lds trcg only w/o i&r Russel Aylin Terrence COMMERCIAL PEST CONTROL REPRESENTATIVE - PLUMBING MANAGER Work Phone: Start: 08-04-2024 End: 08-04-2024 Basic metabolic panel calcium total Prakash Doe MD Work Phone: Start: 08-04-2024 End: 08-04-2024 Basic metabolic panel calcium total Russel Viera Terrence COMMERCIAL PEST CONTROL REPRESENTATIVE - PLUMBING MANAGER Work Phone: Start: 08-03-2024 End: 08-04-2024 Glucose quantitative blood xcpt reagent strip Mars Solano DO Work Phone: Start: 08-03-2024 Ecg routine ecg w/le ast 12 lds trcg only w/o i&r Prakash Doe MD Work Phone: Start: 08-03-2024 End: 08-03-2024 Glucose quantitative blood xcpt reagent strip Mars Solano DO Work Phone: Start: 08-03-2024 Blood gases any comb ination ph pco2 po2 co2 hco3 Russel PratimaCorbin Nunez COMMERCIAL PEST CONTROL REPRESENTATIVE - PLUMBING MANAGER Work Phone: Start: 08-03-2024 End: 08-03-2024 Glucose quantitative blood xcpt reagent strip Mars Russ DO Work Phone: Start: 08-03-2024 Glucose quantitative blood xcpt reagent strip Mars Solano DO Work Phone: Start: 08-03-2024 RHONDA rodriguez DO Work Phone: Start: 08-03-2024 End: 08-03-2024 Glucose quantitative blood xcpt reagent strip Mars Russ DO Work Phone: Start: 08-03-2024 Blood gases any comb ination ph pco2 po2 co2 hco3 Keesha Jessica COMMERCIAL PEST CONTROL REPRESENTATIVE - PLUMBING MANAGER Work Phone: Start: 08-03-2024 Blood gases any comb ination ph pco2 po2 co2 hco3 Russel Nunez COMMERCIAL PEST CONTROL REPRESENTATIVE - PLUMBING MANAGER Work Phone: Start: 08-03-2024 End: 08-03-2024 Basic metabolic panel calcium total Russel Nunez COMMERCIAL PEST CONTROL REPRESENTATIVE - PLUMBING MANAGER Work Phone: Start: 08-03-2024 Ecg routine ecg w/le ast 12 lds trcg only w/o i&r Russel Nunez COMMERCIAL PEST CONTROL REPRESENTATIVE - PLUMBING MANAGER Work Phone: Start: 08-03-2024 End: 08-03-2024 Radiologic exam chest single view Mars Solano DO Work Phone: Start: 08-03-2024 Level iv surg pathol ogy gross&microscopic exam Mars Solano DO Work Phone: Start: 08-03-2024 Echo transesophag r- t 2d w/prb img acquisj i&r Russel Nunez COMMERCIAL PEST CONTROL REPRESENTATIVE - PLUMBING MANAGER Work Phone: Start: 08-03-2024 End: 08-03-2024 As-aort grf w/card byp f/aortic ds oth/thn dsj Mars Solano DO Work Phone: Start: 08-03-2024 End: 08-03-2024 Echo transesophag r-t 2d w/prb img acquisj i&r Mars Solano DO Work Phone: Start: 08-03-2024 End: 08-03-2024 Rplcmt prost aortic valve open xcp homogrf/stent Mars Solano DO Work Phone: Start: 07-27-2024 Antibody screen MUNDO PLASENCIA Comment on above: Performed By: #### L [id number] ####Tempering Kiln Tender: TRACI LIZARRAGA ([phone])[facility] ([facility])[address] [place] [address] Start: 07-22-2024 Brncdilat rspse spmt ry pre&post-brncdilat admn Mars Russ DO Work Phone: Start: 07-21-2024 Follow-up visit Follow-up MARS SOLANO Start: 07-04-2024 TTE w or wo fol wcon,Doppler Ottee Bragg MD Work Phone: Start: 06-08-2024 Cardiac catheterizat ion study Aashish Bragg MD Work Phone: Start: 06-08-2024 End: 06-08-2024 POCT O2 SATURATION Joe Timmons MD Work Phone: Start: 06-01-2024 Ecg routine ecg w/le ast 12 lds w/i&r Aashish Bragg MD Work Phone: Start: 06-01-2024 Follow-up visit MUNDO PLASENCIA Start: 05-18-2024 Follow-up visit MUNDO PLASENCIA Start: 05-04-2024 Adult depression scr eening assessment Chapis Dickens COMMERCIAL PEST CONTROL REPRESENTATIVE.PLUMBING MANAGER Work Phone: Start: 07-31-2023 Lipid 1996 panel - S juliana or Plasma Xr [place] Work Phone: Start: 07-27-2023 Ecg routine ecg w/le ast 12 lds i&r only [facility] Provider Start: 04-03-2023 CT angiography of ch est with contrast Start: 04-24-2022 Radiologic exam ches t 2 views Mundo Plasencia MD Work Phone: Start: 10-22-2021 Colonoscopy Christy Garner MD Work Phone: Start: 10-11-2021 Lipid 1996 panel - S juliana or Plasma Mundo Plasencia MD Work Phone: Start: 10-09-2021 Adult depression scr eening assessment Mundo Plasencia MD Work Phone: Start: 01-02-2021 Radiologic exam ches t 2 views Mundo Plasencia MD Work Phone: Start: 07-10-2020 Radex elbow complete minimum 3 views Gregory Gutierrez COMMERCIAL PEST CONTROL REPRESENTATIVE.PLUMBING MANAGER Work Phone: Start: 06-27-2020 Radiologic exam ches t 2 views Mundo Plasencia MD Work Phone: Start: 06-27-2020 [...] Activity Detail Author Start: 10-23-2031 Colonoscopy COLONOSCOPY [facility] Start: 10-23-2031 COLORECTAL CANCER SCREENING COLORECTAL CANCER SCREENING [facility] Start: 10-23-2031 Screening for malignant neoplasm of colon [facility] Start: 07-30-2028 Lipid panel Lipid Screening [facility] Start: 10-11-2026 Lipid panel Lipid Screening [facility] Start: 10-11-2026 LIPID SCREEN LIPID SCREEN [facility] Start: 07-30-2026 Diabetes Screening Diabetes Screening [facility] Start: 02-11-2026 PROSTATE CANCER SCREENING DISCUSSION PROSTATE CANCER SCREENING DISCUSSION [facility] Start: 02-11-2026 Prostate specific antigen measurement Prostate Cancer Screening Discussion [facility] Start: 11-01-2025 Annual PCP Team Chronic Disease Visit Annual PCP Team Chronic Disease Visit [facility] Start: 11-01-2025 Diabetic foot examination Diabetic Foot Exam [facility] Start: 10-24-2025 Diabetes: Estimated Glomerular Filtration Rate for Kidney Health Diabetes: Estimated Glomerular Filtration Rate for Kidney Health [facility] Start: 10-24-2025 Diabetes: Urine Albumin-Creatinine Ratio for Kidney Health Diabetes: Urine Albumin-Creatinine Ratio for Kidney Health [facility] Start: 10-24-2025 Hemoglobin A1c measurement Diabetes: Hemoglobin A1C [facility] Start: 10-24-2025 Hepatitis B screening Urine Albumin:Creatinine Ratio [facility] Start: 10-24-2025 Hepatitis B surface antibody level LDL Cholesterol [facility] Start: 10-10-2025 Annual PCP Team Chronic Disease Visit Annual PCP Team Chronic Disease Visit [facility] Start: 09-08-2025 Annual PCP Team Chronic Disease Visit Annual PCP Team Chronic Disease Visit [facility] Start: 09-05-2025 Creatinine measurement Creatinine Level [facility] Start: 09-05-2025 Diabetes: Estimated Glomerular Filtration Rate for Kidney Health Diabetes: Estimated Glomerular Filtration Rate for Kidney Health [facility] Start: 09-05-2025 Potassium measurement Potassium Level [facility] Start: 09-02-2025 Creatinine measurement Creatinine Level [facility] Start: 09-02-2025 Diabetes: Estimated Glomerular Filtration Rate for Kidney Health Diabetes: Estimated Glomerular Filtration Rate for Kidney Health [facility] Start: 09-02-2025 Potassium measurement Potassium Level [facility] Start: 08-29-2025 Creatinine measurement Creatinine Level [facility] Start: 08-29-2025 Diabetes: Estimated Glomerular Filtration Rate for Kidney Health Diabetes: Estimated Glomerular Filtration Rate for Kidney Health [facility] Start: 08-29-2025 Potassium measurement Potassium Level [facility] Start: 08-26-2025 Diabetes: Estimated Glomerular Filtration Rate for Kidney Health Diabetes: Estimated Glomerular Filtration Rate for Kidney Health [facility] Start: 08-24-2025 Diabetes: Estimated Glomerular Filtration Rate for Kidney Health Diabetes: Estimated Glomerular Filtration Rate for Kidney Health [facility] Start: 08-23-2025 Diabetes: Estimated Glomerular Filtration Rate for Kidney Health Diabetes: Estimated Glomerular Filtration Rate for Kidney Health [facility] Start: 08-16-2025 [facility] Start: 08-03-2025 Echocardiography Echocardiogram [facility] Start: 07-27-2025 Diabetes mellitus screening Diabetes Screening [facility] Start: 07-27-2025 Hemoglobin A1c measurement [facility] Start: 05-04-2025 Abdominal aortic aneurysm screening Abdominal Aortic Aneurysm Screening [facility] Comment on above: Postponed from 1959 (Declined at t his time) Start: 05-04-2025 Annual PCP Team Chronic Disease Visit Annual PCP Team Chronic Disease Visit [facility] Start: 05-04-2025 Anxiety Screening Anxiety Screening [facility] Start: 05-04-2025 BP Controlled (<130/80) BP Controlled (<130/80) [facility] Start: 05-04-2025 Covid-19 Vaccine ( season) Covid-19 Vaccine ( season) [facility] Comment on above: Postponed from 11/29/2023 (Declined at t his time) Start: 05-04-2025 Depression Screening Depression Screening [facility] Start: 05-04-2025 Medicare Annual Wellness Visit Medicare Annual Wellness Visit [facility] Start: 05-04-2025 Pneumococcal Vaccine: 50+ (2 of 2 - PCV) Pneumococcal Vaccine: 50+ (2 of 2 - PCV) [facility] Comment on above: Postponed from 10/27/2018 (Declined at t his time) Start: 05-04-2025 RSV Vaccine (1 - Risk 60-74 years 1-dose series) RSV Vaccine (1 - Risk 60-74 years 1-dose series) [facility] Comment on above: Postponed from 2019 (Declined at t his time) Start: 05-04-2025 Urine microalbumin profile DTaP,Tdap,Td Vaccine (1 - Tdap) [facility] Comment on above: Postponed from 1978 (Declined at t his time) Start: 05-04-2025 End: 05-04-2025 Patient encounter procedure 05/04/2025 8:40 AM EST Office Visit [facility] [place] [address] [place] [address] Mundo Plasencia MD [address] [place] [address] medicare wellness [facility] [place] Comment on above: medicare wellness Start: 04-26-2025 Hemoglobin A1c measurement HbA1C [facility] Start: 03-03-2025 End: 03-03-2025 Patient encounter procedure 03/03/2025 10:30 AM EST Office Visit Pulmonary Medicine [address] [place] [address] Babita Jaramillo, COMMERCIAL PEST CONTROL REPRESENTATIVE.PLUMBING MANAGER [address] [place] [address] 4 month f/u Pulmonary Medicine Comment on above: 4 month f/u Start: 01-26-2025 Hemoglobin A1c measurement HbA1C [facility] Start: 11-28-2024 Influenza vaccination [facility] Start: 11-28-2024 [facility] Start: 11-01-2024 End: 11-01-2024 Patient encounter procedure 11/01/2024 8:00 AM EDT Office Visit Internal Medicine [place] [address] [place] [address] Chapis Dickens, COMMERCIAL PEST CONTROL REPRESENTATIVE.PLUMBING MANAGER [address] [place] [address] follow up 6 months [facility] [place] Comment on above: follow up 6 months Start: 10-31-2024 End: 10-31-2024 Patient encounter procedure 10/31/2024 10:30 AM EDT Office Visit Pulmonary Medicine [address] [place] [address] Morgan Verde MD [address] [place] [address] follow up Pulmonary Medicine Comment on above: follow up Start: 10-31-2024 Evaluation of diagnostic study results [facility] Start: 10-28-2024 End: 10-28-2024 ambulatory PULM LAB [facility] Comment on above: testing Start: 10-24-2024 End: 11-23-2025 XR Chest PA and Lateral [facility] Comment on above: Expected: 10/24/2024, Expires: Start: 10-24-2024 End: 10-24-2024 Patient encounter procedure 10/24/2024 11:00 AM EDT Office Visit Pulmonary Medicine [address] [place] [address] Morgan Verde MD [address] [place] [address] Respiratory failure with hypoxia, unspecified chronicity (HCC) [J96.91]; SONIA (obstructive sleep apnea) [G47.33] [facility] Comment on above: Respiratory failure with hypoxia, unspec ified chronicity (HCC) [J96.91]; SONIA (obstructive sleep apnea) [G47.33] Start: 10-20-2024 End: 10-20-2024 Patient encounter procedure 10/20/2024 8:30 AM EDT Office Visit Urology [address] [place] [address] Aj Quiles PA-C [address] [place] [address] 1 mnth follow up Urology Comment on above: 1 mnth follow up Start: 10-18-2024 End: 10-18-2024 Patient encounter procedure 10/18/2024 8:30 AM EDT Office Visit Urology [address] [place] [address] Aj Quiles PA-C [address] [place] [address] 1 mnth follow up Urology Comment on above: 1 mnth follow up Start: 10-11-2024 DIABETES SCREEN DIABETES SCREEN [facility] Start: 10-11-2024 Diabetes Screening Diabetes Screening [facility] Start: 10-10-2024 End: 10-10-2024 Patient encounter procedure 10/10/2024 3:00 PM EDT Office Visit Internal Medicine [place] [address] [place] [address] Mundo Plasencia MD [address] [facility] [place] [address] follow up - 5 weeks [facility] [place] Comment on above: follow up - 5 weeks Start: 10-08-2024 End: 01-07-2025 CBC panel - Blood by Automated count COMPLETE BLOOD COUNT Lab Routine Anemia, unspecified type Expected: 10/08/2024, Expires: 01/07/2025 [facility] Work Phone: Comment on above: Expected: 10/08/2024, Expires: Start: 10-08-2024 End: 01-07-2025 Comprehensive metabolic 2000 panel - Serum or Plasma COMPREHENSIVE METABOLIC PANEL Lab Routine New onset type 2 diabetes mellitus (HCC) Expected: 10/08/2024, Expires: 01/07/2025 [facility] Comment on above: Expected: 10/08/2024, Expires: Start: 10-08-2024 End: 01-07-2025 Hemoglobin A1c in Blood HEMOGLOBIN A1C Lab Routine New onset type 2 diabetes mellitus (HCC) Expected: 10/08/2024, Expires: 01/07/2025 [facility] Comment on above: Expected: 10/08/2024, Expires: Start: 10-08-2024 End: 01-07-2025 Lipid 1996 panel - Serum or Plasma LIPID PANEL, FASTING Lab Routine New onset type 2 diabetes mellitus (HCC) Expected: 10/08/2024, Expires: 01/07/2025 [facility] Comment on above: Expected: 10/08/2024, Expires: Start: 10-08-2024 End: 01-07-2025 Microalbumin/Creatinine [Mass Ratio] in Urine ALBUMIN/CREATININE RATIO, URINE Lab Routine New onset type 2 diabetes mellitus (HCC) Expected: 10/08/2024, Expires: 01/07/2025 [facility] Comment on above: Expected: 10/08/2024, Expires: Start: 10-06-2024 End: 01-05-2025 Bacteria identified in Urine by Culture BACTERIAL CULTURE, URINE Microbiology Routine Acute cystitis without hematuria Expected: 10/06/2024, Expires: 01/05/2025 [facility] Work Phone: Comment on above: Expected: 10/06/2024, Expires: Start: 10-03-2024 End: 10-03-2024 Patient encounter procedure 10/03/2024 1:00 PM EDT Office Visit Urology [address] [place], [place] [id number] Emiliano Shahid MD [address] [place], [place] [id number] urinary retention- iyer cath in place Urology Comment on above: urinary retention- iyer cath in place Start: 09-26-2024 Influenza vaccination Influenza Vaccine (#1) [facility] Comment on above: Postponed from 11/29/2023 (Declined at t his time) Start: 09-20-2024 Evaluation of diagnostic study results [facility] Start: 09-15-2024 End: 09-15-2024 Patient encounter procedure 09/15/2024 2:00 PM EDT Office Visit Urology [address] [place] [address] Aj Quiles PA-C [address] [place], [place] [id number] Patient needs seen TWILA.. Urology Comment on above: Patient needs seen TWILA.. Start: 09-08-2024 End: 09-08-2024 Patient encounter procedure 09/08/2024 10:00 AM EDT Office Visit Internal Medicine [place] [address] [place] [address] Mundo Plasencia MD [address] [place] [address] [facility]u [facility] [place] Comment on above: f/u [facility] 09/05 aorta an yurism Start: 08-31-2024 End: 08-31-2024 ambulatory [facility] [place] Start: 08-31-2024 End: 08-31-2024 Telemedicine consultation with patient 08/31/2024 1:00 PM EDT Telemedicine [facility] [place] [address] [place] [phone] Russel Nunez APRN - PLUMBING MANAGER [address] [place] [phone] [facility] [place] Start: 08-03-2024 End: 08-03-2024 Admission to same day surgery center 08/03/2024 7:00 AM EDT - 08/03/2024 12:00 PM EDT Surgery [facility] MAIN OR [address] [place] [phone] Mars Solano DO [address] [place] [phone] ASCENDING AORTA AND AORTIC ROOT REPLACEMENT [35666 (CPT )] [facility] OR Comment on above: ASCENDING AORTA AND AORTIC ROOT REPLACEM ENT [91069 (CPT )] Start: 08-03-2024 End: 08-03-2024 Anesthesia consultation 08/03/2024 7:00 AM EDT Anesthesia Event [facility] MAIN OR [address] [place] [phone] Misty Macias, COMMERCIAL PEST CONTROL REPRESENTATIVE - PLUMBING MANAGER [address] [place] [address] [facility] MA[facility] OR Start: 08-03-2024 End: 08-03-2024 As-aort grf w/card byp f/aortic ds oth/thn dsj ASCENDING AORTA GRAFT W CARDIOPULMONARY BYPASS INCLUDE VALVE SUSP FOR AORTIC DISEASE OTHER THAN DISSECTION Aneurysm of the ascending aorta, without rupture (HCC) 08/03/2024 7:00 AM EDT [facility] Operating Room Start: 08-03-2024 End: 08-03-2024 Echo transesophag r-t 2d w/prb img acquisj i&r ECHOCARDIOGRAM, TRANSESOPHAGEAL Aneurysm of the ascending aorta, without rupture (HCC) 08/03/2024 7:00 AM EDT [facility] Operating Room Start: 08-03-2024 End: 08-03-2024 Rplcmt prost aortic valve open xcp homogrf/stent REPLACEMENT, AORTIC VALVE, OPEN Aneurysm of the ascending aorta, without rupture (HCC) 08/03/2024 7:00 AM EDT [facility] Operating Room Start: 08-03-2024 Subsequent hospital visit by physician 08/03/2024 7:00 AM EDT Hospital Encounter [facility] MAIN OR [address] [place] [phone] Mars Solano DO [address] [place] [phone] [facility] MAIN OR Start: 07-30-2024 Hepatitis B surface antibody level LDL Cholesterol [facility] Start: 07-27-2024 End: 07-27-2024 Admission to establishment 07/27/2024 10:00 AM EDT Pre-Admission Testing [facility] Pre-Admit Testing [address] [place] [phone] [facility] Pre-Admit Testing Start: 07-26-2024 Annual PCP Team Chronic Disease Visit Annual PCP Team Chronic Disease Visit [facility] Start: 07-26-2024 BP Controlled (<130/80) BP Controlled (<130/80) [facility] Start: 07-26-2024 Covid-19 Vaccine ( season) Covid-19 Vaccine ( season) [facility] Comment on above: Postponed from 11/28/2022 (Declined at t his time) Start: 07-22-2024 End: 07-22-2024 Patient encounter procedure 07/22/2024 8:30 AM EDT Appointment [facility] [address] Pulm Function Lab [address] [place] [phone] Mars Solano DO [address] [place] [address] [facility] [address] Pulm Function Lab Start: 07-04-2024 End: 07-04-2024 Patient encounter procedure 07/04/2024 11:00 AM EDT Appointment [facility] [address] Non-Invasive Cardiology [address] [place] [phone] Aashish Bragg MD [address] [place] [address] [facility] [address] Non-Invasive Cardiology Start: 06-08-2024 Subsequent hospital visit by physician 06/08/2024 Hospital Encounter [facility] Cath/EP Lab [address] [place] [phone] Joe Timmons MD [address] [place] [address] [facility] Cath/EP Lab Start: 06-01-2024 End: 06-01-2025 Heart Transthoracic Transthoracic echocardiogram (TTE) complete with contrast, bubble, strain, and 3D PRN CV Echocardiography Routine Aneurysm of ascending aorta without rupture (HCC) Expected: 06/01/2024 (Approximate), Expires: 06/01/2025 [facility] Work Phone: Comment on above: Expected: 06/01/2024 (Approximate), Expi res: 06/01/2025 Start: 05-04-2024 End: 05-04-2024 Patient encounter procedure 05/04/2024 5:00 PM EST Office Visit [facility] [place] [address] [place], [place] [phone] Chapis Dickens, COMMERCIAL PEST CONTROL REPRESENTATIVE.PLUMBING MANAGER [address] [place], [place] [address] Wellness exam/with 6 month follow up [facility] [place] Comment on above: Wellness exam/with 6 month follow up Start: 03-30-2024 Advance Directive Discussion Advance Directive Discussion [facility] Start: 03-07-2024 LIPID SCREEN LIPID SCREEN [facility] Start: 01-03-2024 DIABETES SCREEN DIABETES SCREEN [facility] Start: 12-03-2023 End: 12-03-2023 Patient encounter procedure 12/03/2023 8:00 AM EDT Office Visit [facility] [place] [address] [place] [address] Mundo Plasencia MD [address] [place] [address] Medicare wellness- Yearly w/6 month follow-up [facility] [place] Comment on above: Medicare wellness- Yearly w/6 month foll ow-up Start: 11-29-2023 Covid-19 Vaccine ( season) Covid-19 Vaccine () [facility] Start: 11-29-2023 Influenza vaccination [facility] Start: 11-29-2023 [facility] Start: 08-23-2023 ANNUAL PCP TEAM CHRONIC DISEASE VISIT ANNUAL PCP TEAM CHRONIC DISEASE VISIT [facility] Start: 08-23-2023 Urine microalbumin profile [facility] Comment on above: Postponed from 1978 (Declined at t his time) Start: 07-05-2023 ANNUAL PCP TEAM CHRONIC DISEASE VISIT ANNUAL PCP TEAM CHRONIC DISEASE VISIT [facility] Start: 04-24-2023 ANNUAL PCP TEAM CHRONIC DISEASE VISIT ANNUAL PCP TEAM CHRONIC DISEASE VISIT [facility] Start: 03-30-2023 Behavioral Health Screening Behavioral Health Screening [facility] Start: 03-12-2023 ANNUAL PCP TEAM CHRONIC DISEASE VISIT ANNUAL PCP TEAM CHRONIC DISEASE VISIT [facility] Start: 01-10-2023 ANNUAL PCP TEAM CHRONIC DISEASE VISIT ANNUAL PCP TEAM CHRONIC DISEASE VISIT [facility] Start: 01-10-2023 COVID-19 VACCINE (#1) COVID-19 VACCINE (#1) [facility] Comment on above: Postponed from 1959 (Declined at t his time) Start: 11-28-2022 Influenza vaccination INFLUENZA (Season Ended) [facility] Start: 10-09-2022 Adult depression screening assessment DEPRESSION SCREENING [facility] Start: 10-09-2022 ANNUAL PCP TEAM CHRONIC DISEASE VISIT ANNUAL PCP TEAM CHRONIC DISEASE VISIT [facility] Start: 09-26-2022 Influenza vaccination INFLUENZA (#1) [facility] Comment on above: Postponed from 11/28/2021 (Declined at t his time) Start: 04-01-2022 ANNUAL PCP TEAM CHRONIC DISEASE VISIT ANNUAL PCP TEAM CHRONIC DISEASE VISIT [facility] Start: 03-30-2022 DEPRESSION ASSESSMENT DEPRESSION ASSESSMENT [facility] Start: 01-24-2022 End: 03-26-2022 Basic metabolic 2000 panel - Serum or Plasma BASIC METABOLIC PNL Lab Routine Primary hypertension Expected: 01/24/2022 (Approximate), Expires: 03/26/2022 [facility] Work Phone: Comment on above: Expected: 01/24/2022 (Approximate), Expi res: 03/26/2022 Start: 11-28-2021 Influenza vaccination [facility] Start: 10-10-2021 End: 12-10-2021 CBC panel - Blood by Automated count CBC Lab Routine Primary hypertension Expected: 10/10/2021, Expires: 12/10/2021 [facility] Work Phone: Comment on above: Expected: 10/10/2021, Expires: 2 Start: 10-10-2021 End: 12-10-2021 Comprehensive metabolic 2000 panel - Serum or Plasma COMP METABOLIC PANEL Lab Routine Primary hypertension Expected: 10/10/2021, Expires: 12/10/2021 [facility] Work Phone: Comment on above: Expected: 10/10/2021, Expires: 2 Start: 10-10-2021 End: 12-10-2021 Lipid 1996 panel - Serum or Plasma LIPID PANEL BASIC Lab Routine Primary hypertension Expected: 10/10/2021, Expires: 12/10/2021 [facility] Work Phone: Comment on above: Expected: 10/10/2021, Expires: 2 Start: 06-27-2021 Adult depression screening assessment DEPRESSION SCREENING [facility] Start: 03-30-2021 DEPRESSION ASSESSMENT DEPRESSION ASSESSMENT [facility] Start: 12-27-2020 Hemoglobin A1c measurement HbA1C [facility] Start: 03-11-2020 COLORECTAL CANCER SCREENING COLORECTAL CANCER SCREENING [facility] Start: 03-11-2020 FECAL OCCULT BLOOD FECAL OCCULT BLOOD [facility] Start: 03-11-2020 Screening for malignant neoplasm of colon Fecal Occult Blood [facility] Start: 2019 RSV Immunization for Adults (1 - Risk 60-74 years 1-dose series) RSV Immunization for Adults (1 - Risk 60-74 years 1-dose series) [facility] Start: 2019 RSV Vaccine (1 - 1-dose 60+ series) RSV Vaccine (1 - 1-dose 60+ series) [facility] Start: 2019 RSV Vaccine (1 - Risk 60-74 years 1-dose series) RSV Vaccine (1 - Risk 60-74 years 1-dose series) [facility] Start: 2019 [facility] Start: 10-27-2018 PNEUMOCOCCAL (2 - PCV) PNEUMOCOCCAL (2 - PCV) [facility] [facility] Start: 10-27-2018 Pneumococcal Vaccine: 50+ (2 of 2 - PCV) Pneumococcal Vaccine: 50+ (2 of 2 - PCV) [facility] Start: 10-27-2018 Pneumococcal Vaccine: 50+ Years (2 of 2 - PCV) Pneumococcal Vaccine: 50+ Years (2 of 2 - PCV) [facility] Start: 10-27-2018 [facility] Start: 06-08-2017 End: 06-08-2017 Appointment Appointment [facility] Work Phone: Start: 11-24-2016 End: 11-24-2016 Appointment Appointment [facility] Work Phone: Start: 11-24-2016 End: 11-24-2016 STEVE WILSON [facility] Work Phone: Start: 11-24-2016 End: 11-24-2016 Follow Up Appt 6 months Follow Up Appt 6 months [facility] Work Phone: Start: 09-24-2015 End: 09-24-2015 STEVE CASPERN [facility] Work Phone: Start: 09-24-2015 End: 09-24-2015 Follow Up Appt 1 year Follow Up Appt 1 year [facility] Work Phone: Start: 09-24-2015 End: 09-24-2015 Pulmonary Referral Pulmonary Referral Blu Pal, [facility], [address], [place], [address] [facility] Work Phone: Start: 09-11-2015 End: 09-11-2015 Follow Up BP Check Follow Up BP Check [facility] Work Phone: Start: 06-27-2014 End: 06-27-2014 STEVE WILSON [facility] Work Phone: Start: 06-27-2014 End: 06-27-2014 Follow Up Appt 6 months Follow Up Appt 6 months [facility] Work Phone: Start: 05-22-2014 End: 06-15-2014 Follow Up BP Check Follow Up BP Check [facility] Work Phone: Start: 05-15-2014 End: 06-26-2014 Complete sleep workup (PSG,CPAP as indicated) & Follow up Complete sleep workup (PSG,CPAP as indicated) & Follow up [facility] Work Phone: Start: 05-15-2014 End: 05-15-2014 PENNIEIrvin STEVE [facility] Work Phone: Start: 05-15-2014 End: 05-15-2014 Follow Up Appt 1 month Follow Up Appt 1 month [facility] Work Phone: Start: 05-15-2014 End: 05-15-2014 Stress Echocardiogram (treadmill) Stress Echocardiogram (treadmill) [facility] Work Phone: Start: 2009 Zoster Vaccines (1 of 2) Zoster Vaccines (1 of 2) [facility] Start: 2009 [facility] Start: 01-21-2004 COLOGUARD (FIT-DNA) COLOGUARD (FIT-DNA) [facility] Start: 01-21-2004 Colonoscopy COLONOSCOPY [facility] Start: 01-21-[address] COLONOGRAPHY [facility] Start: 01-21-2004 Screening for malignant neoplasm of colon [facility] Start: 01-21-2004 SIGMOIDOSCOPY SIGMOIDOSCOPY [facility] Start: 1989 Zoledronic acid therapy ALPHA-1 ANTITRYPSIN DEFICIENCY SCREENING [facility] Start: 1978 DTaP/Tdap/Td Vaccines (1 - Tdap) DTaP/Tdap/Td Vaccines (1 - Tdap) [facility] Start: 1978 Urine microalbumin profile [facility] Start: 1978 [facility] Start: 1977 Anxiety Screening Anxiety Screening [facility] Start: 1977 BP CONTROLLED (<130/80) BP CONTROLLED (<130/80) [facility] Start: 1977 Depression Screening Depression Screening [facility] Start: 1977 Diabetes mellitus screening Diabetes Screening [facility] Start: 1977 Diabetes: Urine Albumin-Creatinine Ratio for Kidney Health Diabetes: Urine Albumin-Creatinine Ratio for Kidney Health [facility] Start: 1977 Hepatitis C screening [facility] Start: 1977 [facility] Start: 1971 Depression Screening Depression Screening [facility] Start: 1971 [facility] Start: 1969 Diabetic foot examination [facility] Start: 1969 Glaucoma screening [facility] Start: 1969 Hepatitis B screening Urine Albumin:Creatinine Ratio [facility] Start: 1969 Preventive dental service [facility] Start: 01-21-1964 COVID-19 VACCINE (#1) COVID-19 VACCINE (#1) [facility] Start: 01-21-1960 MMR Vaccines (1 of 1 - Standard series) MMR Vaccines (1 of 1 - Standard series) [facility] Start: 01-21-1960 [facility] Start: 1959 COVID-19 VACCINE (#1) COVID-19 VACCINE (#1) [facility] Start: 1959 Abdominal aortic aneurysm screening Abdominal Aortic Aneurysm Screening [facility] Start: 1959 Annual wellness visit [facility] Start: 1959 Lipid panel [facility] Start: 1959 Medicare Annual Wellness (AWV) Medicare Annual Wellness (AWV) [facility] Start: 1959 Screening for malignant neoplasm of colon [facility] Start: 1959 Thyroid stimulating hormone measurement [facility] Start: 1959 [facility] CBC W Auto Different ial panel - Blood [facility] CBC W Auto Different ial panel - Blood [facility] CBC W Auto Different ial panel - Blood [facility] End: 10-11-2022 COLONOSCOPY DIAGNOSTIC COLONOSCOPY DIAGNOSTIC Endoscopy Routine Painless rectal bleeding 1 Occurrences starting 10/11/2021 until 10/11/2022 [facility] Work Phone: Comment on above: 1 Occurrences starting 10/11/2021 until 10/11/2022 End: 10-22-2021 COLONOSCOPY DIAGNOSTIC COLONOSCOPY DIAGNOSTIC Endoscopy Routine Painless rectal bleeding 1 Occurrences starting 10/22/2021 until 10/22/2021 [facility] Work Phone: Comment on above: 1 Occurrences starting 10/22/2021 until 10/22/2021 Complete PFT study Complete PFT study PFT Routine SONIA (obstructive sleep apnea) 07/22/2024 9:38 AM EDT [facility] Comprehensive metabo lic 2000 panel - Serum or Plasma [facility] End: 08-05-2024 ECG [facility] End: 04-24-2023 ECG COMPLETE ECG COMPLETE ECG Routine Chest pain, unspecified type 1 Occurrences starting 04/24/2022 until 04/24/2023 [facility] Work Phone: Comment on above: 1 Occurrences starting 04/24/2022 until 04/24/2023 ECG COMPLETE ECG COMPLETE ECG Routine Chest pain, unspecified type Ordered: 07/27/2023 [facility] Work Phone: Comment on above: Ordered: 07/27/2023 Ferritin [Mass/volum e] in Serum or Plasma [facility] Iron and Iron bindin g capacity panel - Serum or Plasma [facility] LEFT AND RIGHT HEART CATH / CORONARY ANGIOGRAPHY W GRAFTS LEFT AND RIGHT HEART CATH / CORONARY ANGIOGRAPHY W GRAFTS Aneurysm of ascending aorta without rupture (HCC) [facility] End: 11-23-2025 LUNG DIFFUSION CAPACITY (DLCO) LUNG DIFFUSION CAPACITY (DLCO) PFT Routine 1 Occurrences starting 10/24/2024 until 11/23/2025 [facility] Comment on above: 1 Occurrences starting 10/24/2024 until 11/23/2025 Natriuretic peptide. B prohormone N-Terminal [Mass/volume] in Serum or Plasma [facility] Patient Education CARDIAC+STRESS+TEST [facility] Work Phone: End: 11-23-2025 SPIROMETRY WITH DILATOR IF OBSTRUCTED SPIROMETRY WITH DILATOR IF OBSTRUCTED PFT Routine 1 Occurrences starting 10/24/2024 until 11/23/2025 [facility] Work Phone: Comment on above: 1 Occurrences starting 10/24/2024 until 11/23/2025 Thyroid stimulating hormone measurement [facility] XR Chest 2 Views XR chest 2 view s Imaging Routine Pre-op testing 07/27/2024 11:21 AM EDT [facility] Work Phone: [facility] Immunizations Immunization Date Immunization Notes Care Provider [facility] 03-03-2018 influenza virus vacc ine, unspecified formulation Mundo Plasencia MD Work Phone: [facility] 10-27-2017 pneumococcal polysaccharide vaccine, 23 valent Mundo Plasencia MD Work Phone: [facility] Work Phone: Payers Date Payer Category Payer Self-pay [id number] 2023 Medicare 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 chest pain and palpitations. Genitourinary: Negative for dysuria. Neurological: Negative for dizziness. Psychiatric/Behavioral: Negative for agitation and behavioral problems. ACTIVE PROBLEM LIST Solitary Kidney, Acquired Tobacco Abuse SONIA (obstructive sleep apnea) intolerant to CPAP Bph With Obstruction/Lower Urinary Tract Symptoms Paroxysmal Atrial Fibrillation (Hcc) Gout Hypertension Ddd (Degenerative Disc Disease), Lumbar Chronic Pain Syndrome Chronic Bronchitis, Obstructive (Hcc) Obesity, Class III, BMI >= 40 Nodule of Left Lung Cardiomyopathy (Hcc) Ascending Aortic Aneurysm New Onset Type 2 Diabetes Mellitus (Hcc) Respiratory Failure With Hypoxia (Hcc) S/P aorta repair-Valve sparing aortic root, ascending aorta replacement 30mm Cardioroot graft; Left atrial appendage exclusion 40mm Atriclip; ENRIQUE Social History Tobacco Use Smoking status: Former Current packs/day: 0.00 Average packs/day: 0.5 packs/day for 36.0 years (18.0 ttl pk-yrs) Types: Pipe, Cigarettes Start date: 04/04/1985 Quit date: 04/04/2021 Years since quittin.5 Smokeless tobacco: Never Tobacco comments: quit Mar 2021 Vaping Use Vaping status: Never Used Substance Use Topics Alcohol use: Yes Comment: 1 beer in 6 months Drug use: Yes Frequency: 14.0 times per week Types: Marijuana Comment: no IVDA Current Outpatient Medications Medication Sig [START ON 11/03/2024] famotidine (PEPCID) 20 mg tablet Take 1 tablet by mouth two times a day. Patient should start on November 03, 2024. sulfamethoxazole-trimethoprim (BACTRIM DS) 800-160 mg per tablet Take 1 tablet by mouth two times a day. amiodarone (PACERONE) 100 mg tablet Take 1 tablet by mouth two times a day. metoprolol succinate ER (TOPROL XL) 100 mg Take 1 tablet by mouth once daily. doxazosin (CARDURA) 8 mg tablet Take 1 tablet by mouth daily at bedtime. insulin glargine (LANTUS) 100 unit/mL injection Inject 12 Units subcutaneously two times a day with meals. metFORMIN ER (GLUCOPHAGE XR) 500 mg 24 hr tablet Take 1 tablet by mouth two times a day with meals. acetaminophen (TYLENOL) 325 mg tablet Take 650 mg by mouth every 6 hours as needed. TRUE METRIX GLUCOSE TEST STRIP test strip use for glucose checks TRUE METRIX GLUCOSE METER as directed. insulin lispro 100 unit/mL injection Inject 0-12 Units subcutaneously. polyethylene glycol 3350 17 gram packet Take 17 g by mouth at bedtime as needed. amLODIPine (NORVASC) 5 mg tablet Take 1 tablet by mouth once daily. hydrocortisone (ANUSOL-HC) 25 mg suppository 1 suppository by RECTAL route once daily as needed. No current facility-administered medications for this visit. Objective BP 124/68 (BP Site: Left Arm, BP Position: Sitting, BP Cuff Size: Large Adult) Pulse 68 Wt (!) 150.2 kg (331 lb 2.1 oz) SpO2 94% BMI 44.85 kg/m? Physical Exam Constitutional: General: He is not in acute distress. Appearance: He is not ill-appearing. Comments: On Portable O2 concentrator. Cardiovascular: Rate and Rhythm: Normal rate and regular rhythm. Heart sounds: S1 normal and S2 normal. Murmur (ULSB) heard. Systolic murmur is present with a grade of 1/6. Pulmonary: Effort: No respiratory distress. Breath sounds: No wheezing or rales. Musculoskeletal: Right lower le+ Pitting Edema present. Left lower le+ Pitting Edema present. Neurological: General: No focal deficit present. Mental Status: He is alert. Assessment and Plan 1. S/P aorta repair-Valve sparing aortic root, ascending aorta replacement 30mm Cardioroot graft; Left atrial appendage exclusion 40mm Atriclip; ENRIQUE - ICD9: V45.89, ICD10: Z98.890 (primary diagnosis) 2. New onset type 2 diabetes mellitus (HCC) - ICD9: 250.00, ICD10: E11.9 - Control undetermined, due for labs - Continue current medications 3. Primary hypertension - ICD9: 401.9, ICD10: I10 - Controlled - Continue current medications 4. Cardiomyopathy, unspecified type (HCC) - ICD9: 425.4, ICD10: I42.9 - Stable. 5. Respiratory failure with hypoxia, unspecified chronicity (HCC) - ICD9: 518.81, ICD10: J96.91 - Stable on portable O2. - See pulmonary. 6. (more content not included)... [facility] 10-10-2024 History of Present illness Narrative This note was created using [employer]. Subjective Erickson Riggs is a 64 year old male was here with his daughter. He was doing better. Catheter was out. He was off Abilify with no issues. His iyer catheter was removed by urology and he was urinating fine. [facility]. He was being treated for urinary tract infection. He did not bring his glucose meter, and he did not do his fasting labs. He was wondering about driving. He was still under Home Health for care, PT, and OT. Review of Systems Constitutional: Negative for fatigue. Respiratory: Negative for shortness of breath. Cardiovascular: Negative for chest pain and palpitations. Genitourinary: Negative for dysuria. Neurological: Negative for dizziness. Psychiatric/Behavioral: Negative for agitation and behavioral problems. ACTIVE PROBLEM LIST Solitary Kidney, Acquired Tobacco Abuse SONIA (obstructive sleep apnea) intolerant to CPAP Bph With Obstruction/Lower Urinary Tract Symptoms Paroxysmal Atrial Fibrillation (Hcc) Gout Hypertension Ddd (Degenerative Disc Disease), Lumbar Chronic Pain Syndrome Chronic Bronchitis, Obstructive (Hcc) Obesity, Class III, BMI >= 40 Nodule of Left Lung Cardiomyopathy (Hcc) Ascending Aortic Aneurysm New Onset Type 2 Diabetes Mellitus (Hcc) Respiratory Failure With Hypoxia (Hcc) S/P aorta repair-Valve sparing aortic root, ascending aorta replacement 30mm Cardioroot graft; Left atrial appendage exclusion 40mm Atriclip; ENRIQUE Social History Tobacco Use Smoking status: Former Current packs/day: 0.00 Average packs/day: 0.5 packs/day for 36.0 years (18.0 ttl pk-yrs) Types: Pipe, Cigarettes Start date: 04/04/1985 Quit date: 04/04/2021 Years since quittin.5 Smokeless tobacco: Never Tobacco comments: quit Mar 2021 Vaping Use Vaping status: Never Used Substance Use Topics Alcohol use: Yes Comment: 1 beer in 6 months Drug use: Yes Frequency: 14.0 times per week Types: Marijuana Comment: no IVDA Current Outpatient Medications Medication Sig [START ON 11/03/2024] famotidine (PEPCID) 20 mg tablet Take 1 tablet by mouth two times a day. Patient should start on November 03, 2024. sulfamethoxazole-trimethoprim (BACTRIM DS) 800-160 mg per tablet Take 1 tablet by mouth two times a day. amiodarone (PACERONE) 100 mg tablet Take 1 tablet by mouth two times a day. metoprolol succinate ER (TOPROL XL) 100 mg Take 1 tablet by mouth once daily. doxazosin (CARDURA) 8 mg tablet Take 1 tablet by mouth daily at bedtime. insulin glargine (LANTUS) 100 unit/mL injection Inject 12 Units subcutaneously two times a day with meals. metFORMIN ER (GLUCOPHAGE XR) 500 mg 24 hr tablet Take 1 tablet by mouth two times a day with meals. acetaminophen (TYLENOL) 325 mg tablet Take 650 mg by mouth every 6 hours as needed. TRUE METRIX GLUCOSE TEST STRIP test strip use for glucose checks TRUE METRIX GLUCOSE METER as directed. insulin lispro 100 unit/mL injection Inject 0-12 Units subcutaneously. polyethylene glycol 3350 17 gram packet Take 17 g by mouth at bedtime as needed. amLODIPine (NORVASC) 5 mg tablet Take 1 tablet by mouth once daily. hydrocortisone (ANUSOL-HC) 25 mg suppository 1 suppository by RECTAL route once daily as needed. No current facility-administered medications for this visit. Objective BP 124/68 (BP Site: Left Arm, BP Position: Sitting, BP Cuff Size: Large Adult) Pulse 68 Wt (!) 150.2 kg (331 lb 2.1 oz) SpO2 94% BMI 44.85 kg/m Physical Exam Constitutional: General: He is not in acute distress. Appearance: He is not ill-appearing. Comments: On Portable O2 concentrator. Cardiovascular: Rate and Rhythm: Normal rate and regular rhythm. Heart sounds: S1 normal and S2 normal. Murmur (ULSB) heard. Systolic murmur is present with a grade of 1/6. Pulmonary: Effort: No respiratory distress. Breath sounds: No wheezing or rales. Musculoskeletal: Right lower le+ Pitting Edema present. Left lower le+ Pitting Edema present. Neurological: General: No focal deficit present. Mental Status: He is alert. Assessment and Plan 1. S/P aorta repair-Valve sparing aortic root, ascending aorta replacement 30mm Cardioroot graft; Left atrial appendage exclusion 40mm Atriclip; ENRIQUE - ICD9: V45.89, ICD10: Z98.890 (primary diagnosis) 2. New onset type 2 diabetes mellitus (HCC) - ICD9: 250.00, ICD10: E11.9 - Control undetermined, due for labs - Continue current medications 3. Primary hypertension - ICD9: 401.9, ICD10: I10 - Controlled - Continue current medications 4. Cardiomyopathy, unspecified type (HCC) - ICD9: 425.4, ICD10: I42.9 - Stable. 5. Respiratory failure with hypoxia, unspecified chronicity (HCC) - ICD9: 518.81, ICD10: J96.91 - Stable on portable O2. - See pulmonary. 6. Paroxysmal atrial fibrillation (HCC) - ICD9: 427.31, ICD10: I48.0 - [facility] the [facility] for follow up. Request records. - [facility] dropped off his medication list. This needs clarification. Mundo Plasencia MD documented in this encounter [facility] 10-06-2024 Telephone encounter Note The following approved medication requests have been transmitted electronically. Requested Prescriptions Signed Prescriptions Disp Refills doxazosin (CARDURA) 8 mg tablet 90 tablet 3 Sig: Take 1 tablet by mouth daily at bedtime. Authorizing Provider: CHAPIS DICKENS insulin glargine (LANTUS) 100 unit/mL injection 10 mL 0 Sig: Inject 12 Units subcutaneously two times a day with meals. Authorizing Provider: CHAPIS DICKENS metFORMIN ER (GLUCOPHAGE XR) 500 mg 24 hr tablet 180 tablet 1 Sig: Take 1 tablet by mouth two times a day with meals. Authorizing Provider: CHAPIS DICKENS famotidine (PEPCID) 20 mg tablet 180 tablet 1 Sig: Take 1 tablet by mouth two times a day. Patient should start on November 03, 2024. Authorizing Provider: MUNDO PLASENCIA amiodarone (PACERONE) 100 mg tablet 180 tablet 0 Sig: Take 1 tablet by mouth two times a day. Authorizing Provider: MUNDO PLASENCIA metoprolol succinate ER (TOPROL XL) 100 mg 90 tablet 0 Sig: Take 1 tablet by mouth once daily. Authorizing Provider: MUNDO PLASENCIA Refused Prescriptions Disp Refills amLODIPine (NORVASC) 5 mg tablet 90 tablet Sig: Take 1 tablet by mouth once daily. Refused By: CHAPIS DICKENS Reason for Refusal: A Refill not appropriate metoprolol succinate ER (TOPROL XL) 100 mg 90 tablet Sig: Take 1 tablet by mouth once daily. Refused By: CHAPIS DICKENS Reason for Refusal: A Refill not appropriate amiodarone (PACERONE) 100 mg tablet Sig: Take 1 tablet by mouth. Refused By: CHAPIS DICKENS Reason for Refusal: A Refill not appropriate torsemide (DEMADEX) 20 mg tablet 30 tablet 0 Sig: Take 1 tablet by mouth once daily. Refused By: CHAPIS DICKENS Reason for Refusal: A Refill not appropriate Medications refilled until he can see his career placement specialist. GI consult ordered. Mundo Plasencia MD [facility] 10-06-2024 Miscellaneous Notes The following approved medication requests have been transmitted electronically. Requested Prescriptions Signed Prescriptions Disp Refills doxazosin (CARDURA) 8 mg tablet 90 tablet 3 Sig: Take 1 tablet by mouth daily at bedtime. Authorizing Provider: CAHPIS DICKENS insulin glargine (LANTUS) 100 unit/mL injection 10 mL 0 Sig: Inject 12 Units subcutaneously two times a day with meals. Authorizing Provider: CHAPIS DICKENS metFORMIN ER (GLUCOPHAGE XR) 500 mg 24 hr tablet 180 tablet 1 Sig: Take 1 tablet by mouth two times a day with meals. Authorizing Provider: CHAPIS DICKENS famotidine (PEPCID) 20 mg tablet 180 tablet 1 Sig: Take 1 tablet by mouth two times a day. Patient should start on November 03, 2024. Authorizing Provider: MUNDO PLASENCIA amiodarone (PACERONE) 100 mg tablet 180 tablet 0 Sig: Take 1 tablet by mouth two times a day. Authorizing Provider: MUNDO PLASENCIA metoprolol succinate ER (TOPROL XL) 100 mg 90 tablet 0 Sig: Take 1 tablet by mouth once daily. Authorizing Provider: MUNDO PLASENCIA Refused Prescriptions Disp Refills amLODIPine (NORVASC) 5 mg tablet 90 tablet Sig: Take 1 tablet by mouth once daily. Refused By: CHAPIS DICKENS Reason for Refusal: A Refill not appropriate metoprolol succinate ER (TOPROL XL) 100 mg 90 tablet Sig: Take 1 tablet by mouth once daily. Refused By: CHAPIS DICKENS Reason for Refusal: A Refill not appropriate amiodarone (PACERONE) 100 mg tablet Sig: Take 1 tablet by mouth. Refused By: CHAPIS DICKENS Reason for Refusal: A Refill not appropriate torsemide (DEMADEX) 20 mg tablet 30 tablet 0 Sig: Take 1 tablet by mouth once daily. Refused By: CHAPIS DICKENS Reason for Refusal: A Refill not appropriate Medications refilled until he can see his career placement specialist. GI consult ordered. Mundo Plasencia MD Per last OV note 09/[address] Plasencia, pt was to follow up with GI: 13. Gastroesophageal reflux disease, unspecified whether esophagitis present - ICD9: 530.81, ICD10: K21.9 - See GI as recommended. - FAMOTIDINE 20 MG TABLET Pt was prescribed the Famotidine during his hospital stay. Discussed seeing GI as recommended and both pt and his family state he does not have a fitness/wellness director nor do they remember a consult. They would like to stay within the [facility] system. Consult pended. Also can we add a couple refills to the Famotidine so pt will have time to see gastro? Chapis Dickens sent in only a 30 day supply thinking pt was already established with GI. Called and spoke with pt, daughter Maddie and son-in-law Hany. Pt is completely out of all meds and needs the heart meds tonight. Pt sees [facility]. Explained to pt and family members that they would need to contact [facility] for refills on pt's Amlodipine, Metoprolol succinate ER, Amiodarone & Torsemide. Confirmed all meds, dosages and directions with Hany. Since pt needs doses on some of these tonight and tomorrow morning, called and spoke with Evaristo pharmacist at [facility] in [place]. Did [address] call with Hany on as well. Evaristo states he can fill an emergency 30 day supply on these meds for pt but needs to get prescriptions from [facility] as soon as possible. Hany verbalizes understanding and will call them tomorrow. These meds are prescribed by cardiology- amlodipine, amiodarone, metoprolol, torsemide. Pepcid was prescribed during hospital admission, Dr. Plasencia said he was to follow-up with GI. I refilled it for 30 day supply Chapis Dickens APRN.PLUMBING MANAGER Patient's daughter is calling that Ray is now out of medication for tonight. She is asking for his Rx's to please be expedited today to [facility] on [address] Please call patient's daughter when Rx's are sent. TY [phone] Patient's daughter calling and requesting refills of pended medications. The patient has been identified by name and date of : Yes Caregiver verified no other encounters exist for this prescription request: Yes Caregiver confirmed with patient/requestor that no other refills are due, in the near future, with this provider at this time: Yes The last office visit in the department: 09/08/2024 Does the patient have a future office visit with this provider/department: Yes 10/10/2024 Requested Prescriptions Pending Prescriptions Disp Refills amLODIPine (NORVASC) 5 mg tablet 90 tablet Sig: Take 1 tablet by mouth once daily. doxazosin (CARDURA) 8 mg tablet 90 tablet Sig: Take 1 tablet by mouth daily at bedtime. metoprolol succinate ER (TOPROL XL) 100 mg 90 tablet Sig: Take 1 tablet by mouth once daily. amiodarone (PACERONE) 100 mg tablet Sig: Take 1 tablet by mouth. famotidine (PEPCID) 20 mg tablet 60 tablet 0 Sig: Take 1 tablet by mouth two times a day. insulin glargine (LANTUS) 100 unit/mL injection 10 mL 0 Sig: Inject 12 Units subcutaneously two times a day with meals. torsemide (DEMADEX) 20 mg tablet 30 tablet 0 Sig: Take 1 tablet by mouth once daily. metFORMIN ER (GLUCOPHAGE XR) 500 mg 24 hr tablet 180 tablet Sig: Take 1 tablet by mouth two times a day with meals. Aura Moreno RN documented in this encounter [facility] 10-06-2024 Telephone encounter Note Spoke with nurse and daughter. Patient with bilateral testicular discomfort and swelling x 2 days. He is voiding well. Denies any burning with urination. Home care nurse will obtain a urine for culture tomorrow. He will start bactrim after. If symptoms worsen, patient to go to the ER. Patient is scheduled for follow up on 10/18. Instructed to call with any questions or concerns. Creatinine was on 1.13 on 09/20/2024 at an OSH [facility] 10-06-2024 Miscellaneous Notes Spoke with nurse and daughter. Patient with bilateral testicular discomfort and swelling x 2 days. He is voiding well. Denies any burning with urination. Home care nurse will obtain a urine for culture tomorrow. He will start bactrim after. If symptoms worsen, patient to go to the ER. Patient is scheduled for follow up on 10/18. Instructed to call with any questions or concerns. Creatinine was on 1.13 on 09/20/2024 at an OSH Luis Miguel from [facility] called to give report on the patient, says he is making urine normally but he has bilateral testicular swelling, the testicles aren't painful but they are uncomfortable, Luis Miguel [phone] documented in this encounter [facility] 10-06-2024 Telephone encounter Note Luis Miguel from [facility] called to give report on the patient, says he is making urine normally but he has bilateral testicular swelling, the testicles aren't painful but they are uncomfortable, Luis Miguel [phone] [facility] 10-05-2024 Telephone encounter Note error see previous refill request 10/03 [facility] 10-05-2024 Miscellaneous Notes error see previous refill request 10/03 documented in this encounter [facility] 10-05-2024 Telephone encounter Note Per last OV note 09/[address] Plasencia, pt was to follow up with GI: 13. Gastroesophageal reflux disease, unspecified whether esophagitis present - ICD9: 530.81, ICD10: K21.9 - See GI as recommended. - FAMOTIDINE 20 MG TABLET Pt was prescribed the Famotidine during his hospital stay. Discussed seeing GI as recommended and both pt and his family state he does not have a fitness/wellness director nor do they remember a consult. They would like to stay within the [facility] system. Consult pended. Also can we add a couple refills to the Famotidine so pt will have time to see gastro? Chapis Dickens sent in only a 30 day supply thinking pt was already established with GI. [facility] 10-05-2024 Telephone encounter Note Called and spoke with pt, daughter Maddie and son-in-law Hany. Pt is completely out of all meds and needs the heart meds tonight. Pt sees [facility]. Explained to pt and family members that they would need to contact [facility] for refills on pt's Amlodipine, Metoprolol succinate ER, Amiodarone & Torsemide. Confirmed all meds, dosages and directions with Hany. Since pt needs doses on some of these tonight and tomorrow morning, called and spoke with Evaristo pharmacist at [facility] in [place]. Did [address] call with Hany on as well. Evaristo states he can fill an emergency 30 day supply on these meds for pt but needs to get prescriptions from [facility] as soon as possible. Hany verbalizes understanding and will call them tomorrow. [facility] 10-05-2024 Telephone encounter Note These meds are prescribed by cardiology- amlodipine, amiodarone, metoprolol, torsemide. Pepcid was prescribed during hospital admission, Dr. Plasencia said he was to follow-up with GI. I refilled it for 30 day supply Chapis Dickens APRN.PLUMBING MANAGER [facility] 10-05-2024 Telephone encounter Note Patient's daughter is calling that Ray is now out of medication for tonight. She is asking for his Rx's to please be expedited today to [facility] on [address] Please call patient's daughter when Rx's are sent. TY [phone] [facility] 10-03-2024 Telephone encounter Note Patient's daughter calling and requesting refills of pended medications. The patient has been identified by name and date of : Yes Caregiver verified no other encounters exist for this prescription request: Yes Caregiver confirmed with patient/requestor that no other refills are due, in the near future, with this provider at this time: Yes The last office visit in the department: 09/08/2024 Does the patient have a future office visit with this provider/department: Yes 10/10/2024 Requested Prescriptions Pending Prescriptions Disp Refills amLODIPine (NORVASC) 5 mg tablet 90 tablet Sig: Take 1 tablet by mouth once daily. doxazosin (CARDURA) 8 mg tablet 90 tablet Sig: Take 1 tablet by mouth daily at bedtime. metoprolol succinate ER (TOPROL XL) 100 mg 90 tablet Sig: Take 1 tablet by mouth once daily. amiodarone (PACERONE) 100 mg tablet Sig: Take 1 tablet by mouth. famotidine (PEPCID) 20 mg tablet 60 tablet 0 Sig: Take 1 tablet by mouth two times a day. insulin glargine (LANTUS) 100 unit/mL injection 10 mL 0 Sig: Inject 12 Units subcutaneously two times a day with meals. torsemide (DEMADEX) 20 mg tablet 30 tablet 0 Sig: Take 1 tablet by mouth once daily. metFORMIN ER (GLUCOPHAGE XR) 500 mg 24 hr tablet 180 tablet Sig: Take 1 tablet by mouth two times a day with meals. Aura Moreno RN [facility] 10-03-2024 Telephone encounter Note Luana from [facility] calling patient has been discharged from he has met all of the goals. [facility] 10-03-2024 Miscellaneous Notes Luana from [facility] calling patient has been discharged from PT he has met all of the goals. documented in this encounter [facility] 09-28-2024 Telephone encounter Note Below recommendation left on Louis ku, spoke to Ray & daughter given below recommendations, verbalized understanding. Chica Bañuelos LPN [facility] 09-28-2024 Miscellaneous Notes Below recommendation left on Louis ku, spoke to Ray & daughter given below recommendations, verbalized understanding. Chica Bañuelos LPN 1) No oxygen weaning recommended until he is seen by pulmonary 10/24/24. 2) On review of his records, he can probably wean off aripiprazole (Abilify) 10 mg daily. Wean off taking 10 mg every other day for 5 doses/days. Then discontinue. It seemed he was started on this for agitation during his acute illness. Madelin RETANA with [facility] called I and reports Pt told her he is trying to wean off his 2L of supplemental O2. She states if they are going to wean off the O2 then she will need order from the provider with parameters for weaning off faxed to them. Please fax orders to fax # [phone]. Feliberto Carballo RN documented in this encounter [facility] 09-28-2024 Telephone encounter Note 1) No oxygen weaning recommended until he is seen by pulmonary 10/24/24. 2) On review of his records, he can probably wean off aripiprazole (Abilify) 10 mg daily. Wean off taking 10 mg every other day for 5 doses/days. Then discontinue. It seemed he was started on this for agitation during his acute illness. [facility] 09-28-2024 Telephone encounter Note Madelin OT with [facility] called I and reports Pt told her he is trying to wean off his 2L of supplemental O2. She states if they are going to wean off the O2 then she will need order from the provider with parameters for weaning off faxed to them. Please fax orders to fax # [phone]. Feliberto Carballo RN [facility] 09-20-2024 Evaluation note Diagnosis Onset Date Resolution Obstructive sleep apnea acute J [facility] 2024 10:02am Ascending aortic aneurysm chronic September 20, 2024 10:02am Dyspnea on exertion chronic September 20, 2024 10:02am Essential (primary) hypertension chronic September 20, 2024 10:02am Paroxysmal atrial fibrillation chronic September 20, 2024 10:02am [facility] Work Phone: 1(703) 910-342606-24-2025 Evaluation note* Diagnosis Onset Date Resolution Status Admit Date Obstructive sleep apnea acute J [facility] 2024 10:02am Ascending aortic aneurysm chronic September 20, 2024 10:02am Essential (primary) hypertension chronic September 20, 2024 10:02am Lower extremity edema chronic Aug 10:02am Paroxysmal atrial fibrillation chron ic September 20, 2024 10:02am [facility] Work Phone: 1(116) 556-187606-24-2025 Evaluation note* Diagnosis Onset Date Resolution Status Admit Date Obstructive sleep apnea acute J [facility] 2024 10:02am Ascending aortic aneurysm chronic September 20, 2024 10:02am Essential (primary) hypertension chronic September 20, 2024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 sensation of urinary urgency. - Initial urinary retention managed with Flomax, which reportedly exacerbated the issue. Medication Concerns: - Taking senna 2 tablets every evening; reports excessive bowel movements. - Prescribed a medication for bipolar disorder due to confusion and agitation during hospitalization; Ray and daughter express desire to discontinue. - Incident of confusion reported during hospitalization, attributed to medication effects; no combative behavior noted. - Delirium mentioned on discharge diagnosis and notation of evaluation by psychiatry. Diabetes Management: - Diagnosed with diabetes during initial hospital stay. . - Currently on metformin and insulin glargine, with additional insulin prescriptions for high bloodglucose levels. - Blood glucose readings range from 93 to 125 mg/dL. - Missed insulin doses on one day due to lack of syringes, but blood glucose levels remained stable. Review of Systems Constitutional: (-) fever Ears/Nose/Mouth/Throat: (+) dry mouth Cardiovascular: (-) chest pain, (-) palpitations Respiratory: (-) shortness of breath Gastrointestinal: (+) diarrhea, (-) hematochezia Genitourinary: (-) hematuria Skin: (-) pressure ulcers ACTIVE PROBLEM LIST Solitary Kidney, Acquired Tobacco Abuse SONIA (obstructive sleep apnea) intolerant to CPAP Bph With Obstruction/Lower Urinary Tract Symptoms Paroxysmal Atrial Fibrillation (Hcc) Gout Hypertension Ddd (Degenerative Disc Disease), Lumbar Chronic Pain Syndrome Chronic Bronchitis, Obstructive (Hcc) Obesity, Class III, BMI >= 40 Nodule of Left Lung Cardiomyopathy (Hcc) Ascending Aortic Aneurysm New Onset Type 2 Diabetes Mellitus (Hcc) Respiratory Failure With Hypoxia (Hcc) S/P aorta repair-Valve sparing aortic root, ascending aorta replacement 30mm Cardioroot graft; Leftatrial appendage exclusion 40mm Atriclip; ENRIQUE PAST SURGICAL HISTORY Procedure Laterality Date ASCEND AORTA GRFT 08/03/2024 Valve sparing aortic root, ascending aorta replaced, Left atrial appendage exclusion COLONOSCOPY 10/22/2021 repeat in 10 years LAPAROSCOPY SURG CHOLECYSTECTOMY 08/02/2014 LEFT & RIGHT HEART CATH 06/08/2024 minimal CAD PARTIAL MASTECTOMY Right 2002 benign, breast discharge [...] as child Current Outpatient Medications Medication Sig acetaminophen (TYLENOL) 325 mg tablet Take 650 mg by mouth every 6 hours as needed. amiodarone (PACERONE) 100 mg tablet Take 100 mg by mouth. apixaban (ELIQUIS) 5 mg tab(s) Take 5 mg by mouth. ARIPiprazole (ABILIFY) 10 mg tablet 10 mg by PEG Tube route once daily. TRUE METRIX GLUCOSE TEST STRIP test strip use for glucose checks TRUE METRIX GLUCOSE METER as directed. insulin glargine (LANTUS) 100 unit/mL injection Inject 12 Units subcutaneously two times a day withmeals. insulin lispro 100 unit/mL injection Inject 0-12 Units subcutaneously. ipratropium-albuterol (DUONEB) 0.5 mg-3 mg(2.5 mg base)/3 mL nebu Inhale 3 mL as instructed every 6hours as needed. metFORMIN ER (GLUCOPHAGE XR) 500 mg 24 hr tablet Take 500 mg by mouth two times a day with meals. senna (SENOKOT) 8.6 mg tab Take 17.2 mg by mouth once daily. torsemide (DEMADEX) 20 mg tablet Take 20 mg by mouth once daily. polyethylene glycol 3350 17 gram packet Take 17 g by mouth at bedtime as needed. famotidine (PEPCID) 20 mg tablet Take 20 mg by mouth two times a day. amLODIPine (NORVASC) 5 mg tablet Take 1 tablet by mouth once daily. doxazosin (CARDURA) 8 mg tablet Take 1 tablet by mouth daily at bedtime. hydrocortisone (ANUSOL-HC) 25 mg suppository 1 suppository by RECTAL route once daily as needed. metoprolol succinate ER (TOPROL XL) 100 mg Take 1 tablet by mouth once daily. No current facility-administered medications for this visit. Objective BP 124/66 Pulse 80 Temp 36.9 C (98.5 F) (Temporal) Wt (!) 145.3 kg (320 lb 5.3 oz) SpO2 97% BMI 43.39 kg/m Physical Exam Constitutional: General: He is not in acute distress. Appearance: He is obese. HENT: Head: Normocephalic. Nose: No congestion or rhinorrhea. Eyes: Extraocular Movements: Extraocular movements intact. Comments: Conjunctiva pale. Cardiovascular: Rate and Rhythm: Normal rate. Rhythm irregular. Heart sounds: S1 normal and S2 normal. Murmur (LSB) heard. Systolic murmur is present with a grade of 1/6. Pulmonary: Effort: No respiratory distress. Breath sounds: Rhonchi present. No wheezing or rales. Comments: On portable O2 via NC Chest: Chest wall: No tenderness. Comments: Sternotomy healed. Abdominal: Palpations: Abdomen is soft. Tenderness: There is no abdominal tenderness. Genitourinary: Comments: Indwelling iyer in place. Urine in bag clear. Musculoskeletal: Right lower le+ Pitting Edema present. Left lower le+ Pitting Edema present. Neurological: General: No focal deficit present. Mental Status: He is alert and oriented to person, place, and time. Gait: Gait normal. Psychiatric: Mood and Affect: Mood normal. Behavior: Behavior normal. Assessment and Plan 1. History of ascending aorta repair - ICD9: V15.1, ICD10: Z98.890 (primary diagnosis) Follow up with CTS. 2. New onset type 2 diabetes mellitus (HCC) - ICD9: 250.00, ICD10: E11.9 - Controlled - Continue current medications - TRUE METRIX GLUCOSE TEST STRIP - TRUE METRIX GLUCOSE METER - INSULIN GLARGINE (U-100) 100 UNIT/ML SUBCUTANEOUS SOLUTION - INSULIN LISPRO (U-100) 100 UNIT/ML SUBCUTANEOUS SOLUTION - METFORMIN ER 500 MG TABLET,EXTENDED RELEASE 24 HR - COMPREHENSIVE METABOLIC PANEL - LIPID PANEL, FASTING - HEMOGLOBIN A1C - ALBUMIN/CREATININE RATIO, URINE 3. Cardiomyopathy, unspecified type (HCC) - ICD9: 425.4, ICD10: I42.9 - [facility] - TORSEMIDE 20 MG TABLET 4. Primary hypertension - ICD9: 401.9, ICD10: I10 - Controlled - AMLODIPINE 5 MG TABLET 5. Respiratory failure with hypoxia, unspecified chronicity (HCC) - ICD9: 518.81, ICD10: J96.91 - Patient on NIV BiPAP. - CONSULT TO PULMONARY MEDICINE 6. SONIA (obstructive sleep apnea) intolerant to CPAP - ICD9: 327.23, ICD10: G47.33 - See above. - CONSULT TO PULMONARY MEDICINE 7. Urine retention - ICD9: 788.20, ICD10: R33.9 - CONSULT TO UROLOGY 8. Paroxysmal atrial fibrillation (HCC) - ICD9: 427.31, ICD10: I48.0 - Controlled, anticoagulated. - AMIODARONE 100 MG TABLET - APIXABAN 5 MG TABLET - METOPROLOL SUCCINATE ER 100 MG TABLET,EXTENDED RELEASE 24 HR 9. Delirium - ICD9: 780.09, ICD10: R41.0 - Review information. Continue this for now. - ARIPIPRAZOLE 10 MG TABLET 10. Anemia, unspecified type - ICD9: 285.9, ICD10: D64.9 Recheck. - COMPLETE BLOOD COUNT 11. S/P aorta repair-Valve sparing aortic root, ascending aorta replacement 30mm Cardioroot graft; Left atrial appendage exclusion 40mm Atriclip; ENRIQUE - ICD9: V45.89, ICD10: Z98.890 - See #1. 12. Chronic bronchitis, obstructive (HCC) - ICD9: 491.20, ICD10: J44.89 - Symptoms controlled - See pulmonary - IPRATROPIUM 0.5 MG-ALBUTEROL 3 MG (2.5 MG BASE)/3 ML NEBULIZATION SOLN 13. Gastroesophageal reflux disease, unspecified whether esophagitis present - ICD9: 530.81, ICD10:K21.9 - See GI as recommended. - FAMOTIDINE 20 MG TABLET 14. BPH with obstruction/lower urinary tract symptoms - ICD9: 600.01, 599.69, ICD10: N40.1, N13.8 Continue medication. See urology for FC removal. - DOXAZOSIN 8 MG TABLET Mundo Plasencia MD [facility] Telephone encounter Note * Telephone Encounter - Chica Bañuelos LPN - 09/07/2024 10:46 AM EDT Eleonora[facility], notified. Chica Bañuelos LPN [facility]06-11-2025 Miscellaneous Notes* Telephone Encounter - Chica Bañuelos LPN - 09/07/2024 10:46 AM EDT [facility], notified. Chica Bañuelos LPN * Telephone Encounter - Mundo Plasencia MD - 09/07/2024 10:13 AM EDT Okay PT POC. * Telephone Encounter - Fabienne Garcia LPN - 09/06/2024 4:30 PM EDT Eleonora from [facility] calling did PT eval today, and has PT plan of care, one visit this week, then 2 visits weekly for 3 weeks, then 1 visit weekly for 1 week. Requesting verbal order please. Please advise documented in this encounter[facility]06[facility] Telephone encounter Note * Telephone Encounter - Chica Bañuelos LPN - 09/07/2024 10:44 AM EDT Luis Miguel/[facility] notified. Chica Bañuelos LPN [facility]06-11-2025 Miscellaneous Notes* Telephone Encounter - Chica Bañuelos LPN - 09/07/2024 10:44 AM EDT Luis Miguel[facility] notified. Chica Bañuelos LPN * Telephone Encounter - Mundo Plasencia MD - 09/07/2024 10:09 AM EDT Okay plan of care. * Telephone Encounter - Aura Moreno RN - 09/06/2024 3:11 PM EDT Luis Miguel with [facility] calling to ask if provider would approve pt's plan of care, as follows: Patient to be seen for 1 visit this week then 2 visits next week, then 1 visit per week for 6 weekswith 5 PRN visits if needed. Pt had recent cardiac surgery and has iyer catheter, continuous oxygen and in need of med mgmt. Pt has Hospital Follow Appt scheduled for 09/08. Please call Luis Miguel back with verbal order of approval of plan of care, . Aura Moreno, RN documented in this encounterOhio[facility]06-11-2025 Telephone encounter Note * Telephone Encounter - Mundo Plasencia MD - 09/07/2024 10:13 AM EDT Okay PT POC. [facility]06-11-2025 Telephone encounter Note* Telephone Encounter - Mundo Plasencia MD - 09/07/2024 10:09 AM EDT Okay plan of care. [facility]06-10-2025 Telephone encounter Note* Telephone Encounter - Fabienne Garcia LPN - 09/06/2024 4:30 PM EDT Eleonora from [facility] calling did PT eval today, and has PT plan of care, one visit this week, then 2 visits weekly for 3 weeks, then 1 visit weekly for 1 week. Requesting verbal order please. Please advise [facility]06-10-20[facility] Telephone encounter Note* Telephone Encounter - Aura Moreno RN - 09/06/2024 3:11 PM EDT Luis Miguel with [facility] calling to ask if provider would approve pt's plan of care, as follows: Patient to be seen for 1 visit this week then 2 visits next week, then 1 visit per week for 6 weekswith 5 PRN visits if needed. Pt had recent cardiac surgery and has iyer catheter, continuous oxygen and in need of med mgmt. Pt has Hospital Follow Appt scheduled for 09/08. Please call Luis Miguel back with verbal order of approval of plan of care, . Aura Moreno, RN [facility]06-09-2025 History of Present illness Narrative* Aj Ballard MD - 09/05/2024 11:59 PM EDT [facility] [place] documented in this [facility]06-09-2025 Note09/05/24 1244 [facility] Outreach Assessment [facility] Which outreach assessment are you completing? 21 Day [facility]PCI - 21 Day Outreach Did patient answer phone call? No (Patient currently at [facility] plan is to [facility] today)[facility]06-08-2025 History of Present illness Narrative* Sincere Somers MD - 09/04/2024 6:22 PM EDT [facility] documented in this [facility] History of Present illness Narrative* Sincere Somers MD - 09/03/2024 4:21 PM EDT [facility] documented in this [facility] History of Present illness Narrative* Sincere Somers MD - 09/02/2024 5:47 PM EDT [facility] documented in this [facility]-06-[facility] Telephone encounter Note* Telephone Encounter - Morgan Suh MA - 09/02/2024 2:19 PM EDT Ursula was notified Morgan Suh MA [facility]06-06-2025 Miscellaneous Notes* Telephone Encounter - Morgan Suh MA - 09/02/2024 2:19 PM EDT Ursula was notified Morgan Suh MA * Telephone Encounter - Mundo Plasencia MD - 09/02/2024 1:21 PM EDT Okay I will follow. * Telephone Encounter - Rubia Barrera RN - 09/02/2024 12:24 PM EDT Ursula with [facility] calls to ask if provider will follow their home care orders for SN, PT, OT. Patient discharging home to [facility] in [place] on Thursday09/05/2024 after rehab for an aortic aneurysm with surgical repair. Please call verbal orders to [phone]. Rubia Barrera RN documented in this encounterOhio[facility]06-06-2025 Telephone encounter Note * Telephone Encounter - Mundo Plasencia MD - 09/02/2024 1:21 PM EDT Okay I will follow. [facility]06-06-[facility] Telephone encounter Note* Telephone Encounter - Rubia Barrera RN - 09/02/2024 12:24 PM EDT Ursula with [facility] calls to ask if provider will follow their home care orders for SN, PT, OT. Patient discharging home to [facility] in [place] on Thursday09/05/2024 after rehab for an aortic aneurysm with surgical repair. Please call verbal orders to [phone]. Rubia Barrera RN [facility]06-05-2025 History of Present illness Narrative* Sincere Somers MD - 09/01/2024 6:26 PM EDT [facility] documented in this [facility]06-04-[facility] History of Present illness Narrative* Sincere Somers MD - 08/31/2024 5:27 PM EDT [facility] documented [facility] History of Present illness Narrative* GARY Farrell CNP - 08/31/2024 1:00 PM EDT Images from the original note were not included. [facility]: [facility] [address] [facility] [id number] Dept: [phone] Dept Loc: [phone] Visit type: Established patient Reason for Visit: Follow-up Assessment and Plan 1. S/P aorta repair 08/03/24: s/p valve sparing aortic root and ascending aorta replacement with 30mm Cardioroot graft, Left atrial appendage exlusion with 40mm Atriclip, ENRIQUE with Dr. Solano No answer guest relations coordinator to contact number, spoke with nurse at [facility]. -Patient doing well. -Still having urinary retention, post void residuals as high as 1-2L. -Iyer in place, will DC home with iyer for OP Urology follow up. -Right now, plan for DC home on Thursday. -Will reach out to patient to arrange OP follow up once at home. POD#28 Day from Discharge (08/16/24) #15 -Reviewed current meds: Continue as prescribed. -Surgical Incisions: Per nursing- healing well. -Physical therapy as outlined in discharge instructions.Not ready for Cardiac Rehab and Not ready to drive. -Acute Post-Operative Pain controlled. Patient no longer taking narcotic opioid medication. Tx plan: Over The Counter-Tylenol (acetaminophen) 500 mg 1-2 tablets every 6 hours. No more than 4,000 mg in 24 hour period, Over The Counter-Motrin (ibuprofen) 200-400 mg by mouth every 4-6 hours (or) 600-800mg every 8 hours. No more than 3,200 mg per day, Over The Counter-pain patches (Salon pas) may used as needed next to incision but not directly on your incision, and Ice packs applied for 20 minutes, then off for at least 20 minutes before reapplying. Weight restriction measures 1-4 weeks from date of surgery- 10lbs weight restriction: 5-8 weeks from date of surgery- 20lbs weight restriction: 9-12 weeks from date of surgery-30lbs weight restriction approximate end date: Disposition: Follow up in office once discharged home from [facility]. Patient verbalized understanding of plan and stated they would call if any questions or concerns arise. Treatment Team: PCP: Mundo Plasencia Spoke with nursing staff at [facility]. Patient was identified and seen today via Telehealth by agreement and consent. I used the followingTelehealth technology: Audio capability only. Total length of call 10 minutes. The patient was offered and advised video for a more comprehensive evaluation, but the patient declined or was unable touse video. Patient location: VV Patient Location: [facility]. This patient encounteris appropriate and reasonable under the circumstances: Admitted to [facility] . The patient has been advised of the potential risks and limitations of this mode of treatment (including but not limited tothe absence of in-person examination) and has agreed to be treated in a remote fashion in spite of them. Any and all of the patient's/patient's family's questions on this issue have been answered Abel have made no promises or guarantees to the patient. The patient has also been advised to contact this office for worsening conditions or problems, and seek emergency medical treatment and/or call 911 if the patient deems either necessary. The patient stated that they are currently in the state [facility]. If the patient is a minor, permission has been obtained by the parent or guardian for the patient to receive medical care at this visit. Subjective HPI: 64 yo male with PMH of HTN, aortic aneurysm, afib, cardiomyopathy, SONIA, former tobacco use, marijuana use, and solitary kidney. Pt follows with Cardiology who ordered an annual CTA chest which was completed on 04/26/24 and showed ascending thoracic aorta measures up to 5.2 cm. Previous CTA chest completed on 04/03/23 showed dilated ascending aorta measuring 4.7 cm. He was referred to Dr. Solano as an OP. He admits to being sedentary most of the time, washing dishes wears him out. Patient went to OR on 08/03/[address] Solano. Extubated post-op as expected. Did require HFNC and NIV for multiple days. Eventually weaned to 6L NC. Patient had intermittent confusion and ICU delirium. Did not sleepwell despite being treated with multiple pharmacological agents. Intermittent atrial fibrillation and sinus tachycardia. Started on amio gtt and then PO amio. Beta selene titrated up for better ratecontrol and started on Eliquis. Patient volume overloaded, treated with Bumex gtt and eventually transitioned to IV Bumex pushes, TID->BID. Urinary retention became an issue, Urology consulted and iyer replaced. Patient became agitated about iyer and demanded to have it removed. Discussed withUrology and decision made to remove. Patient states that urinary retention has been a chronic issuefor him. Urine culture +, started on ABX for UTI treatment. GI consulted for one episode of blood in stool. Patient declined workup for this, also stated that this is something that he periodically experiences. Decision [facility] we[facility] and PT/OT. 08/31/24: [facility] to check on patient. Nursing states he is doing well, anticipated DC home on Thursday. Only set back has been urinary retention, iyer replaced with plan to follow up with Urology OP. Doing well with PT/OT. Allergies[1] Current Medications[2] Medical History[3] Objective Patient reported: Failed to redirect to the Timeline version of the [employer] Smart[employer]. There were no vitals filed for this visit. Wt Readings from Last 3 Encounters: 08/16/24 (!) 339 lb 11.7 oz (154 kg) 07/27/24 (!) 339 lb 4.8 oz (154 kg) 07/21/24 (!) 335 lb (152 kg) Physical exam deferred due to virtual visit-with audio (telephone) capabilities only. Data Reviewed and Summarized Labs/Imaging/Testing: reviewed EMR, see A&P for pertinent diagnostic results related to office visit Russel Nunez, COMMERCIAL PEST CONTROL REPRESENTATIVE - PLUMBING MANAGER [1] Allergies Allergen Reactions Penicillins Hives Other Reaction(s): GI upset, hives Hives or GI upset-patient unsure Aspirin Hives Other Reaction(s): GI Upset, GI upset, hives [2] Current Outpatient Medications: acetaminophen (Tylenol) 500 MG tablet, Take 2 tablets (1,000 mg) by mouth every 8 hours., Disp: , Rfl: amiodarone (Pacerone) 200 MG tablet, Take 2 tablets (400 mg) by mouth 2 times daily for 10 days, THEN 2 tablets (400 mg) daily for 10 days, THEN 1 tablet (200 mg) daily for 7 days., Disp: , Rfl: apixaban (Eliquis) 5 MG tablet, Take 1 tablet (5 mg) by mouth 2 times daily., Disp: , Rfl: bumetanide (Bumex) 1 MG tablet, Take 1 tablet (1 mg) by mouth 2 times daily., Disp: , Rfl: doxazosin (Cardura) 4 MG tablet, Take 1 tablet (4 mg) by mouth daily., Disp: , Rfl: insulin glargine (Lantus) 100 UNIT/ML pen, Inject 12 Units under the skin every morning. Do not start before August 17, 2024., Disp: , Rfl: Insulin Lispro (Humalog) 100 UNIT/ML solution injection, Inject 0-12 Units under the skin 3 times daily (with meals)., Disp: , Rfl: ipratropium-albuterol (Duo-Neb) 0.5-2.5 mg/3 mL nebulizer solution, Take 3 mL by nebulization 3 times daily as needed for wheezing or shortness of breath., Disp: , Rfl: Lidocaine 4 % patch, Apply 1 patch topically daily., Disp: , Rfl: melatonin 5 MG tablet, Take 1 tablet (5 mg) by mouth Nightly as needed (Insomnia)., Disp: , Rfl: metFORMIN XR (Glucophage-XR) 500 MG 24 hr tablet, Take 1 tablet (500 mg) by mouth 2 times daily (with meals). Do not crush, chew, or split., Disp: , Rfl: metoprolol succinate XL (Toprol-XL) 100 MG 24 hr tablet, Take 1 tablet (100 mg) by mouth daily. Do not crush or chew., Disp: , Rfl: oxyCODONE (Roxicodone) 5 MG immediate release tablet, Take 1 tablet (5 mg) by mouth every 4 hours as needed for moderate pain (4-6) or severe pain (7-10)., Disp: , Rfl: pantoprazole (ProtoNix) 40 MG EC tablet, Take 1 tablet (40 mg) by mouth every morning (before breakfast). Do not crush, chew, or split., Disp: , Rfl: polyethylene glycol, PEG, 3350 (Miralax) 17 g packet, Take 17 g by mouth daily., Disp: , Rfl: potassium chloride CR (Klor-Con M20) 20 MEQ ER tablet, Take 1 tablet (20 mEq) by mouth daily. Do not crush or chew. While taking bumex., Disp: , Rfl: No current facility-administered medications for this visit. [3] Past Medical History: Diagnosis Date Alcohol abuse Aneurysm (HCC) Atrial fibrillation (HCC) Chronic bronchitis (HCC) CVA (cerebral vascular accident) (HCC) about 14 years ago per pt GERD (gastroesophageal reflux disease) Hypertension Nicotine abuse SONIA (obstructive sleep apnea) does not use cpap Paroxysmal supraventricular tachycardia (HCC) Shortness of breath documented in this [facility]06-03-2025 History of Present illness Narrative* Sincere Somers MD - 08/30/2024 3:10 PM EDT [facility] documented in this [facility]06-02-2025 History of Present illness Narrative* Sincere Somers MD - 08/29/2024 3:16 PM EDT [facility] documented in this [facility]05-30-2025 History of Present illness Narrative* Mike Bucio MD - 08/26/2024 1:00 PM EDT Patient seen by me at [facility]. Documentation including history, exam, and plan documented in [facility]. This encounter is for billing only. documented in this [facility]05-29-2025 History of Present illness Narrative* Mike Bucio MD - 08/25/2024 10:15 AM EDT Patient seen by me at [facility]. Documentation including history, exam, and plan documented in [facility]. This encounter is for billing only. documented in this [facility]05-28-2025 History of Present illness Narrative* Mike Bucio MD - 08/24/2024 11:28 AM EDT Patient seen by me at [facility]. Documentation including history, exam, and plan documented in [facility]. This encounter is for billing only. documented in this [facility]05-27-2025 History of Present illness Narrative* Henrietta Roche RN - 08/23/2024 4:59 PM EDT Images from the original note were not included. EMR reviewed. Patient enrolled in [facility] Cardiac 90-day BPCI Program post-hospital discharge Dx: Aortic aneurysm s/p valve sparing aortic root replacement. Patient discharged to [facility] 08/16/24. Discharging surgery Mars Solano DO, office number: [phone]. ANA to manuel arellano for discharge. 14-day BPCI outreach scheduled. DISCHARGE DIAGNOSES: Cardiomyopathy HTN SONIA UTI ICU delirium Urinary retention S/p nephrectomy d/t tumor Former smoker Marijuana smoker Hx ischemic stroke Post operative Pulm Management: Normal Post-operative Course Post-operative Atrial Fibrillation: [x]Yes [] No Acute blood loss Discharge Summary copied below: Russel Nunez APRN - PLUMBING MANAGER Nurse Practitioner Cardiothoracic Surgery Discharge Summary Cosign Needed Date of Service: 08/16/2024 11:21 AM Cosign Needed Discharge Summary: Cardiothoracic Surgery Erickson Riggs, 64 y.o., 1960 ADMIT DATE: 08/03/2024 DISCHARGE DATE: 08/16/2024 VISIT STATUS: Admission CODE STATUS: Full Code DISCHARGING SURGEON: Mars Solano DO, Office Number: [phone] DISCHARGE DIAGNOSES: Aortic aneurysm s/p valve sparing aortic root replacement Cardiomyopathy HTN SONIA UTI ICU delirium Urinary retention S/p nephrectomy d/t tumor Former smoker Marijuana smoker Hx ischemic stroke Post operative Pulm Management: Normal Post-operative Course Post-operative Atrial Fibrillation: [x]Yes [] No Acute blood loss anemia/consumptive thrombocytopenia -Wean O2 as able. -PT/OT. -Bumex BID with K supplement until euvolemic. -Bactrim for UTI. -Increased Cardura dose (home med). -Eliquis for paroxysmal afib. BMI CLASSIFICATION:Morbidly Obese (>40.0) TREATMENT TEAM: Primary Care Physician: Mundo Plasencia Re Recording Mixer: Dr. Bragg SURGERY: 08/03/24: s/p valve sparing aortic root and ascending aorta replacement with 30mm Cardioroot graft, Left atrial appendage exlusion with 40mm Atriclip, ENRIQUE with Dr. Solano HOSPITAL COURSE: 64 yo male with PMH of HTN, aortic aneurysm, afib, cardiomyopathy, SONIA, former tobacco use, marijuana use, and solitary kidney. Pt follows with Cardiology who ordered an annual CTA chest which was completed on 04/26/24 and showed ascending thoracic aorta measures up to 5.2 cm. Previous CTA chest completed on 04/03/23 showed dilated ascending aorta measuring 4.7 cm. He was referred to Dr. Solano as an OP. He admits to being sedentary most of the time, washing dishes wears him out. Patient went to OR on 08/03/[address] Solano. Extubated post-op as expected. Did require HFNC and NIV for multiple days. Eventually weaned to 6L NC. Patient had intermittent confusion and ICU delirium. Did not sleepwell despite being treated with multiple pharmacological agents. Intermittent atrial fibrillation and sinus tachycardia. Started on amio gtt and then PO amio. Beta selene titrated up for better ratecontrol and started on Eliquis. Patient volume overloaded, treated with Bumex gtt and eventually transitioned to IV Bumex pushes, TID->BID. Urinary retention became an issue, Urology consulted and iyer replaced. Patient became agitated about iyer and demanded to have it removed. Discussed withUrology and decision made to remove. Patient states that urinary retention has been a chronic issuefor him. Urine culture +, started on ABX for UTI treatment. GI consulted for one episode of blood in stool. Patient declined workup for this, also stated that this is something that he periodically experiences. Decision made [facility] for ongoing O2 weaning and PT/OT. DIAGNOSTICS: BP 115/70 Pulse (!) 125 Temp 36.7 C (98.1 F) (Oral) Resp 23 Ht 6' (1.829 m) Wt (!) 339 lb11.7 oz (154 kg) SpO2 96% PF 57 L/min BMI 46.08 kg/m Recent Labs 08/14/24 0041 08/14/24 1201 08/14/24 1313 08/15/24 0035 08/16/24 0358 CREATININE 1.26* 1.34* -- 1.28* 1.38* HGB 10.7* -- 11.9 11.1* 10.7* PLT 206 -- -- 196 192 WBC 11.4* -- -- 13.0* 13.6* NA 141 137 -- 139 137 K 3.4* 3.9 -- 3.7 4.1 DISCHARGE MEDICATIONS: Medication List START taking these medications acetaminophen 500 MG tablet Commonly known as: Tylenol Take 2 tablets (1,000 mg) by mouth every 8 hours. amiodarone 200 MG tablet Commonly known as: Pacerone Take 2 tablets (400 mg) by mouth 2 times daily for 10 days, THEN 2 tablets (400 mg) daily for 10 days, THEN 1 tablet (200 mg) daily for 7 days. Start taking on: August 16, 2024 apixaban 5 MG tablet Commonly known as: Eliquis Take 1 tablet (5 mg) by mouth 2 times daily. bumetanide 1 MG tablet Commonly known as: Bumex Take 1 tablet (1 mg) by mouth 2 times daily. insulin glargine 100 UNIT/ML pen Commonly known as: Lantus Inject 12 Units under the skin every morning. Do not start before August 17, 2024. Start taking on: August 17, 2024 Insulin Lispro 100 UNIT/ML solution injection Commonly known as: Humalog Inject 0-12 Units under the skin 3 times daily (with meals). ipratropium-albuterol 0.5-2.5 mg/3 mL nebulizer solution Commonly known as: Duo-Neb Take 3 mL by nebulization 3 times daily as needed for wheezing or shortness of breath. Lidocaine 4 % patch Apply 1 patch topically daily. Start taking on: August 17, 2024 melatonin 5 MG tablet Take 1 tablet (5 mg) by mouth Nightly as needed (Insomnia). metFORMIN XR 500 MG 24 hr tablet Commonly known as: Glucophage-XR Take 1 tablet (500 mg) by mouth 2 times daily (with meals). Do not crush, chew, or split. metoprolol succinate XL 100 MG 24 hr tablet Commonly known as: Toprol-XL Take 1 tablet (100 mg) by mouth daily. Do not crush or chew. Start taking on: August 17, 2024 oxyCODONE 5 MG immediate release tablet Commonly known as: Roxicodone Take 1 tablet (5 mg) by mouth every 4 hours as needed for moderate pain (4-6) or severe pain (7-10). pantoprazole 40 MG EC tablet Commonly known as: ProtoNix Take 1 tablet (40 mg) by mouth every morning (before breakfast). Do not crush, chew, or split. Start taking on: August 17, 2024 polyethylene glycol (PEG) 3350 17 g packet Commonly known as: Miralax Take 17 g by mouth daily. Start taking on: August 17, 2024 potassium chloride CR 20 MEQ ER tablet Commonly known as: Klor-Con M20 Take 1 tablet (20 mEq) by mouth daily. Do not crush or chew. While taking bumex. Start taking on: August 17, 2024 sulfamethoxazole-trimethoprim 800-160 MG tablet Commonly known as: Bactrim DS Take 1 tablet by mouth every 12 hours for 13 doses. CHANGE how you take these medications doxazosin 4 MG tablet Commonly known as: Cardura Take 1 tablet (4 mg) by mouth daily. Start taking on: August 17, 2024 What changed: medication strength how much to take when to take this STOP taking these medications amLODIPine 10 MG tablet Commonly known as: Norvasc metoprolol tartrate 25 MG tablet Commonly known as: Lopressor Where to Get Your Medications Information about where to get these medications is not yet available Ask your nurse or doctor about these medications acetaminophen 500 MG tablet amiodarone 200 MG tablet apixaban 5 MG tablet bumetanide 1 MG tablet doxazosin 4 MG tablet insulin glargine 100 UNIT/ML pen Insulin Lispro 100 UNIT/ML solution injection ipratropium-albuterol 0.5-2.5 mg/3 mL nebulizer solution Lidocaine 4 % patch melatonin 5 MG tablet metFORMIN XR 500 MG 24 hr tablet metoprolol succinate XL 100 MG 24 hr tablet oxyCODONE 5 MG immediate release tablet pantoprazole 40 MG EC tablet polyethylene glycol (PEG) 3350 17 g packet potassium chloride CR 20 MEQ ER tablet sulfamethoxazole-trimethoprim 800-160 MG tablet ACTIVITY: activity as tolerated, strict post-sternotomy/post-thoracotomy sternal precautions as outlined in the home going instructions, and no driving or operating heavy machinery until released by provider STRICT POST-STERNOTOMY/POST-THORACOTOMY PRECAUTIONS OUTLINED IN THE HOME GOING INSTRUCTIONS FOLLOW UP: Phone call in 2 weeks and in person visit to follow once Dc'd home. [address] [place] [id number] Dept: [phone] Dept CORE CARDIAC MEDICATIONS PRESCRIBED AT DISCHARGE: Beta-selene prescribed at discharge: [x] Yes [] No - reason why: ACEi or ARB prescribed at discharge: [] Yes [x] No - reason why: Not indicated Statin prescribed at discharge: [] Yes [x] No - reason why: Not indicated Anti-platelet agent prescribed at discharge: [] Yes [x] No - reason why: If yes, type: Post-operative Atrial Fibrillation: [x]Yes [] No OAC: [x] Yes [] No Initial Post-op RBC transfusion date/reason: none noted during post-operative course Chronic Lung Disease: Unknown DISPOSITION: LTAC A copy of the discharge instructions which included the medications at the time of discharge, follow-up appointments, phone numbers to call with questions, activity, restrictions, and limitations wasprovided to the patient or their family. We greatly appreciate the opportunity to participate in the care of your patient. If you have any additional questions or concerns regarding any aspects of their care or management please do not hesitate to contact us. SIGNED: GARY Herr CNP 08/16/2024, 11:37 AM Admission (Discharged) on 08/03/2024 Revision History Note shared with patient Additional Orders and Documentation Results Pathology Imaging Microbiology Meds Orders Procedures Flowsheets Encounter Info: History, Allergies, Education, Care Plan, Detailed Report Linked Episodes Respiratory Recovery Extubation Protocol From 08/03/2024 to 08/03/2024 [facility] BPCI-A Clinical Episode Program Noted 08/16/2024 Hospital Problem List Aneurysm of the ascending aorta, without rupture (HCC) Care Timeline 08/03 Admitted 0538 ASCENDING AORTA AND AORTIC ROOT REPLACEMENT Transferred to [facility] Cardiac Thoracic Vascular Intensive Care Unit CTV ICU T1 1503 08/16 Discharged 1333 Discharge Artist Consultant Care AVS Patient Signature (Surinamese Snapshot) - Printed 08/16/2024 AVS - Discharge to Home (Surinamese Snapshot) - Printed 08/16/2024 Follow-Ups Follow up with GARY Herr CNP (Nurse Practitioner); Phone call in 2 weeks to check on status. In person visit once discharged home. Follow up with Mundo Plasencia (Internal Medicine) Medication List at Discharge Acetaminophen 1,000 mg Oral Every 8 hours Amiodarone HCl 200 MG Take 2 tablets (400 mg) by mouth 2 times daily for 10 days, THEN 2 tablets (400 mg) daily for 10 days, THEN 1 tablet (200 mg) daily for 7 days. Apixaban 5 mg Oral 2 times daily Bumetanide 1 mg Oral 2 times daily Doxazosin Mesylate 4 mg Oral Daily Insulin Glargine 12 Units SubCUTAneous Every morning Insulin Lispro 0-12 Units SubCUTAneous 3 times daily with meals Ipratropium-Albuterol 0.5-2.5 mg/3 mL 3 mL Nebulization 3 times daily PRN Lidocaine 4 % 1 patch Topical Daily Melatonin 5 mg Oral Nightly PRN metFORMIN HCl 500 mg Oral 2 times daily with meals, Do not crush, chew, or split. Metoprolol Succinate 100 mg Oral Daily, Do not crush or chew. oxyCODONE HCl 5 mg Oral Every 4 hours PRN Pantoprazole Sodium 40 mg Oral Daily before breakfast, Do not crush, chew, or split. Polyethylene Glycol 3350 17 g Oral Daily Potassium Chloride Candy ER 20 MEQ 20 mEq Oral Daily, Do not crush or chew. While taking bumex. Sulfamethoxazole-Trimethoprim 800-160 MG 1 tablet Oral Every 12 hours documented in this [facility]05-27-2025 History of Present illness Narrative* Mike Bucio MD - 08/23/2024 11:28 AM EDT Patient seen by me at [facility]. Documentation including history, exam, and plan documented in [facility]. This encounter is for billing only. documented in this [facility]05-20-2025 Miscellaneous Notes* Care Coordination - Natalie Houser RN - 08/16/2024 12:47 PM EDT CM following; updated on patient on rounds. Planning for discharge today to [facility]. SW has arranged transport for 1pm, and kindly notified [employer] Judicial Law Clerk, RN, [facility] and patient and his daughter. Discharge orders received. [facility] sent discharge summary/documents and MAR to [facility] via [employer]. TAMERA completed. * Care Coordination - Unknown Case Management - 08/16/2024 12:43 PM EDT Patient Choice Patient Name: ERICKSON RIGGS Date of : 1960 All Providers Sent Referral Name: [facility] Phone: [phone] Address: [address] [place] [address] * Care Coordination - Pam Zurita - 08/16/2024 12:42 PM EDT Discharge med list transmitted to [facility] per [facility] request. * Care Coordination - SANDRITA Martinez - 08/16/2024 10:02 AM EDT LUDY arranged transport through [facility] to [facility] for 1:00 pm. [facility], [employer] Judicial Law Clerk, RN, [facility] and pt and pt's daughter, Maddie, have been notified. * Care Plan - Melina Bae RN - 08/16/2024 9:46 AM EDT Problem: Knowledge Deficit Goal: Patient/family/caregiver demonstrates understanding of disease process, treatment plan, medications, and discharge instructions Outcome: Progressing Problem: Potential for Compromised Skin Integrity Goal: Skin Integrity is Maintained or Improved Outcome: Progressing Problem: Urinary Incontinence Goal: Perineal skin integrity is maintained or improved Outcome: Not Progressing * Care Plan - Lindsey Magallanes RN - 08/15/2024 6:15 PM EDT Problem: Knowledge Deficit Goal: Patient/family/caregiver demonstrates understanding of disease process, treatment plan, medications, and discharge instructions Outcome: Progressing Problem: Potential for Compromised Skin Integrity Goal: Skin Integrity is Maintained or Improved Outcome: Progressing Goal: Nutritional status is improving Outcome: Progressing Problem: Urinary Incontinence Goal: Perineal skin integrity is maintained or improved Outcome: Progressing Problem: Problem Interventions Goal: Assess Nutritional Intake Outcome: Progressing Problem: Pain - Adult Goal: Verbalizes/displays adequate comfort level or baseline comfort level Outcome: Progressing Flowsheets (Taken 08/15/2024 1553) Verbalizes/displays adequate comfort level or baseline comfort level: Encourage patient to monitor pain and request assistance Assess pain using appropriate pain scale Problem: Safety - Adult Goal: Free from fall injury Outcome: Progressing Problem: Discharge Planning Goal: Discharge to home or other facility with appropriate resources Outcome: Progressing Problem: Chronic Conditions and Co-morbidities Goal: Patient's chronic conditions and co-morbidity symptoms are monitored and maintained or improved Outcome: Progressing Problem: Safety - Non-violent/Interference with Medical Treatment Restraint Goal: Remains free of injury from restraints (Restraint for Interference with Rubbish Collection Supervisor) Outcome: Progressing Goal: Free from restraint(s) (Restraint for Interference with Rubbish Collection Supervisor) Outcome: Progressing * Care Coordination - Marcia Narvaez RN - 08/15/2024 2:58 PM EDT Care Management Progress Note Chart reviewed, cont 6L O2. Discharge plan [facility]. Electronically signed by Marcia Narvaez RN on08/15/2024 at 3:00 PM Length of Stay (Days): 12 GMLOS: 8.5 * Significant Event - GARY Pandya CNP - 08/14/2024 1:17 PM EDT Called to room emergently 1:10 pm Patient had unwitnessed fall. He was found lying on back next to bed, bed rail broken. He then got on all fours and forcible threw himself into hallway. Then was lying on stomach in hallway. Rolled to back and patient lifted back to bed. Placed on NRB. Stat ABG ordered. Stat CXR, pelvis Xray, CT C-spine, and CT head. Answering all orientation questions appropriately, no focal deficits. Dr. Rodriguez also at bedside. Prior to this event patient was getting more delirious throughout the day. Answered all orientationquestions appropriately, but was inappropriately throwing items and frequently calling out. Was easily to redirect. He had similar behavior earlier in hospitalization, but mentation had cleared until today. Family (Daughter Maddie) notified. GARY Pandya CNP 08/14/24 * Significant Event - Lexis Love RN - 08/14/2024 1:10 PM EDT 1256: This RN noted that pt's cadiac monitor leads were not reading appropriately, went to go checkon patient and found patient on his back on the floor next to the bed, side rail on bed bent outward, broken. This RN called for assistance, multiple RNs came to help and called MALENA Marie to bedside. When going to assess patient, patient turned himself on to his stomach, lifted up onto his hands and knees, and pushed himself towards the room door trying to get into the hallway. Patient was no longer responding to us. Kristan Kelly called. Dr. Johnson now at bedside. Pt started to move again. No loss of pulse. Code Blue canceled. Pt, lowered back onto his stomach and instructed not to move. Matheus padplaced on patient and then we log rolled patient onto his back. Pt denies any pain, including neck,extremities, pelvis, head, and chest. Placed patient on NRB for respiratory support. Matheus lift used to lift patient into new ICU bed. Broken bed removed from the room. Full assessment as charted. VSS Pt is no apparent distress, continues to deny pain. Answering all orientation questions appropriately. Post Fall Order set placed, including CXR, X-ray pelvis, CT Head/C-Spine. Family notified by MALENA Marie. X-ray at beside, then patient taken to CT. * Care Plan - Lexis Love RN - 08/13/2024 5:59 PM EDT Problem: Knowledge Deficit Goal: Patient/family/caregiver demonstrates understanding of disease process, treatment plan, medications, and discharge instructions Outcome: Progressing Problem: Potential for Compromised Skin Integrity Goal: Skin Integrity is Maintained or Improved Outcome: Progressing Goal: Nutritional status is improving Outcome: Progressing Problem: Urinary Incontinence Goal: Perineal skin integrity is maintained or improved Outcome: Progressing Problem: Problem Interventions Goal: Assess Nutritional Intake Outcome: Progressing Problem: Pain - Adult Goal: Verbalizes/displays adequate comfort level or baseline comfort level Outcome: Progressing Flowsheets (Taken 08/13/2024 0800) Verbalizes/displays adequate comfort level or baseline comfort level: Encourage patient to monitor pain and request assistance Assess pain using appropriate pain scale Administer analgesics based on type and severity of pain and evaluate response Implement non-pharmacological measures as appropriate and evaluate response Consider cultural and social influences on pain and pain management Notify Licensed Independent Practitioner if interventions unsuccessful or patient reports new pain Problem: Safety - Adult Goal: Free from fall injury Outcome: Progressing Flowsheets (Taken 08/13/2024 0800) Free from fall injury: Instruct family/caregiver on patient safety Based on caregiver fall risk screen, instruct family/caregiver to ask for assistance with transferring infant if caregiver noted to have fall risk factors Problem: Discharge Planning Goal: Discharge to home or other facility with appropriate resources Outcome: Progressing Problem: Chronic Conditions and Co-morbidities Goal: Patient's chronic conditions and co-morbidity symptoms are monitored and maintained or improved Outcome: Progressing * Care Coordination - Joanne Brown RN - 08/12/2024 12:14 PM EDT Continues on high flow 02. Pt is agreeable to got to [facility] to assist with weaning of 02. Does not need an auth.. * Care Coordination - Joanne Brown RN - 08/11/2024 12:19 PM EDT Spoke with pt with [facility] Liaison. Pt is agreeable to go to [facility].. * Care Coordination - Pam Zurita - 08/11/2024 12:03 PM EDT Referral placed to [facility] per [facility] request. Await review and response regarding ability to accept. TCC notified. * Care Coordination - Joanne Brown RN - 08/10/2024 11:50 AM EDT Care Management Progress Note Continues on a precedex gtt and IV lasix. May nee LTAC vs SNF.. Length of Stay (Days): 7 GMLOS: 8.5 * Care Plan - Maria G Potter RN - 08/09/2024 5:50 PM EDT Problem: Knowledge Deficit Goal: Patient/family/caregiver demonstrates understanding of disease process, treatment plan, medications, and discharge instructions Outcome: Not Progressing Problem: Urinary Incontinence Goal: Perineal skin integrity is maintained or improved Outcome: Not Progressing Problem: Potential for Compromised Skin Integrity Goal: Skin Integrity is Maintained or Improved Outcome: Progressing Goal: Nutritional status is improving Outcome: Progressing Problem: Problem Interventions Goal: Assess Nutritional Intake Outcome: Progressing Problem: Knowledge Deficit Goal: Patient/family/caregiver demonstrates understanding of disease process, treatment plan, medications, and discharge instructions Outcome: Not Progressing Problem: Urinary Incontinence Goal: Perineal skin integrity is maintained or improved Outcome: Not Progressing * Care Coordination - Joanne Brown RN - 08/09/2024 1:29 PM EDT Care Management Progress Note Continues on IV Bumex. Gtt have been stopped. PT states home with [facility].. Length of Stay (Days): 6 GMLOS: 8.5 * Care Plan - Maria G Potter RN - 08/08/2024 4:51 PM EDT Problem: Knowledge Deficit Goal: Patient/family/caregiver demonstrates understanding of disease process, treatment plan, medications, and discharge instructions Outcome: Not Progressing Flowsheets (Taken 08/08/2024 1648) Patient/family/caregiver demonstrates understanding of disease process, treatment plan, medications, and discharge instructions: Provide teaching at level of understanding Problem: Potential for Compromised Skin Integrity Goal: Skin Integrity is Maintained or Improved Outcome: Progressing Flowsheets (Taken 08/08/2024 1648) Skin integrity is maintained or improved: Assess and monitor skin integrity Turn patient Relieve pressure to bony prominences Keep skin clean and dry Goal: Nutritional status is improving Outcome: Progressing Flowsheets (Taken 08/08/2024 1648) Nutritional status is improving: Utilize nutrition screening tool and intervene per policy Allow adequate time for meals Problem: Problem Interventions Goal: Assess Nutritional Intake Outcome: Progressing Note: Eat >50 % of meals Problem: Knowledge Deficit Goal: Patient/family/caregiver demonstrates understanding of disease process, treatment plan, medications, and discharge instructions Outcome: Not Progressing Flowsheets (Taken 08/08/2024 1648) Patient/family/caregiver demonstrates understanding of disease process, treatment plan, medications, and discharge instructions: Provide teaching at level of understanding * Care Coordination - Magdalene Munroe RN - 08/08/2024 3:35 PM EDT Reviewed chart. Patient is admitted for s/p valve sparing aortic root and ascending aorta replacement. Increasing O2 needs, now on heated hiflo O2, bumex gtt started, on pecedex. On going DC planning, pending medical stability. CM to follow. * Care Plan - Maria G Potter RN - 08/07/2024 6:34 PM EDT Problem: Problem Interventions Goal: Assess Nutritional Intake Outcome: Not Progressing Problem: Knowledge Deficit Goal: Patient/family/caregiver demonstrates understanding of disease process, treatment plan, medications, and discharge instructions Outcome: Progressing Problem: Potential for Compromised Skin Integrity Goal: Skin Integrity is Maintained or Improved Outcome: Progressing Goal: Nutritional status is improving Outcome: Progressing Problem: Urinary Incontinence Goal: Perineal skin integrity is maintained or improved Outcome: Progressing Problem: Problem Interventions Goal: Assess Nutritional Intake Outcome: Not Progressing * Care Plan - Amaya Copeland RN - 08/05/2024 5:59 PM EDT Problem: Knowledge Deficit Goal: Patient/family/caregiver demonstrates understanding of disease process, treatment plan, medications, and discharge instructions Outcome: Progressing Problem: Potential for Compromised Skin Integrity Goal: Skin Integrity is Maintained or Improved Outcome: Progressing Goal: Nutritional status is improving Outcome: Progressing Problem: Urinary Incontinence Goal: Perineal skin integrity is maintained or improved Outcome: Progressing Problem: Problem Interventions Goal: Assess Nutritional Intake Outcome: Progressing * Care Coordination - Christy Shetty RN - 08/05/2024 2:46 PM EDT Care Management Progress Note Chart reviewed, pt on HLU. Pt admitted with Aneurysm of the ascending aorta without rupture. S/p valve sparing root replacement and atriclip placement on 08/03. IV amiodarone and IV fluids. CT in place. PT rec 24 sup or assist and OP PT; OT rec IPR. CM will follow for dc planning. Length of Stay (Days): 2 GMLOS: 5.6 * Op Note - Mars Solano DO - 08/03/2024 7:05 AM EDT Cardiothoracic Surgery Operative Report Date: 08/03/24 Pre-operative Diagnosis: Ascending aorta and root aneurysm Mild aortic insufficiency Post-operative Diagnosis: Ascending aorta and root aneurysm Mild aortic insufficiency Procedure: Median sternotomy Total cardiopulmonary bypass Valve sparing aortic root and ascending aorta replacement with 30 mm Cardioroot graft Left atrial appendage exclusion with 40 mm Atriclip Intraoperative transesophageal echocardiogram Surgeon: Antonieta Solano DO Nuclear Physicist(s): [x] Alma Ludwig [] Hector Amaya [] Pratima Hernandez [] Pratima Maradiaga [] Other Anesthesia: General--Dr. Conn Vineyard Tender: Adina Yan IV fluids: See anesthesia and perfusion record Blood Transfusion?: None Drains/wires: Chest tube x 1; ventricular pacing wires Complications: None INDICATIONS FOR SURGERY: This is a 64 y.o. year-old male who was found to have an ascending aortic aneurysm. It has shown mild enlargement over the last year. His aortic valve is mild insufficient but it is trileaflet with no calcification. He has a vague history of atrial fibrillation but is currently in sinus rhythm. Surgical consultation was obtained the the above procedure was offered. The risks, benefits, and alternatives were explained in detail and consent was obtained for the procedure. Findings: Preoperative ENRIQUE showed an aortic root greater than 5 cm and only mild regurgitation in the aortic valve. The valve is trileaflet and appears very soft and pliable. It appeared to coapt well once complete. I cross clamped up onto the arch but never impinged on the innominate artery. The patient wasweaned from cardiopulmonary bypass with no inotropic support needed. Myocardial function is preserved on ENRIQUE. The valve is well-functioning now with no leak paravalvular leak. Cardiopulmonary bypass time 257 minutes. Aortic cross-clamp time 230 minutes. DESCRIPTION OF PROCEDURE: The patient was brought to the operative suite and placed in supine position on the operative table. General anesthesia was administered. All appropriate lines and tubes were placed. The torso and lower extremities were then prepped and draped in the usual sterile fashion. The assistant casino shift manager was presentfor the entire procedure from start to finish and helped with all portions of it. A standard mediansternotomy incision was made. The sternum was divided in the midline and hemostasis was achieved. Astandard retractor was then placed. The thymus was divided in the midline and the pericardium was opened. Full dose heparin was then given. I then cannulated for bypass. A double pursestring suture was placed into the aortic arch. An 8 mm arterial cannula was placed through this and secured. Another pursestring was placed in the right atrial appendage. A dual stage venous cannula was placed through this and secured. Another pursestring was placed in the right atrium. A retrograde cardioplegia cannula was placed through this into the coronary sinus and secured. An antegrade cardioplegia cannula was placed into the ascending aorta. We then went on total cardiopulmonary bypass. There was excellent decompression of all 4 cardiac chambers. A 40 mm atrial clip was placed across the base of the left atrial appendage. The aortic root was dissected enough to provide exposure. An aortic cross-clamp was then placed at the level of the innominate artery. Cold blood antegrade followed by retrograde cardioplegia was administered with excellent diastolic arrest of the heart. Cardioplegia was readministered periodicallythroughout the procedure as indicated. A pledgeted stitch was placed in the right upper pulmonary vein and a left ventricular vent was passed through this across the mitral valve into the left ventricle. The ascending aorta was then transected in the midportion. It was resected up to the cross-clamp and down to the sinotubular junction. I then performed careful dissection down onto the root. Eachof the commissures were spared along with about 3 mm of [place] and [place] vent[place] tribes aortic tissue above the valve leaflets. The ascending aorta had quite good integrity however the aortic root was extremely thin especially in the right sinus of Valsalva. It was difficult to preserve quality aortic tissue in this area to be used for our graft anastomosis. The aorta was extremely adherent to the right ventricular outflow tract with no tissue plane between these 2 structures. This adherence extended around to the noncoronary sinus. Once had completed my aortic root dissection down below the level of the aortic valveannulus I sized the annulus to fit a 27 mm prosthesis. For this reason I chose a 30 mm cardio root graft. Nonpledgeted 2-0 Ethibond stitches were placed in threes at the alejandra under each of the valveleaflets and brought out on the outside. I also placed a 5-0 Prolene pledgeted stitch at the top ofeach commissure. The Ethibond stitches were then each brought through the bottom edge of the graft with the appropriate spacing. The graft was lowered into position with the stitches anchoring it to the root itself. The stitches are each secured. The 5-0 Prolene pledgeted stitches were then broughtto the outside of the graft from the inside. Care was taken to assure that the stitches were all fastened at the same height. With the graft now in place and secured the hemostatic stitch was ready to be placed. 4-0 Prolene was used along the preserved edge of the aorta and anastomosed to the inside of the graft wall in a running fashion. Once the stitches were placed to the top of each commissure they were tied together on the outside. The valve leaflets appeared to coapt nicely at this point. I then turned attention to the coronary buttons. An eye cautery was used to make an opening in the sinus portion of the graftcorresponding to the position of the left main coronary artery. This coronary button was anastomosed to the aorta in an end-to-side fashion using 5-0 Prolene suture. Another corresponding opening in the graft was made for the right coronary artery. This was also secured in place using a 5-0 Prolenesuture. The patient was rewarmed. A portion of the graft was then brought to the field and cut at a bevel. This graft was anastomosedto the ascending aorta at the level of the cross-clamp. The graft was cut once again more proximally and both sides were cut at a small bevel. The distal edge of the root graft and the proximal edge of the ascending aorta graft were then anastomosed together in an end-to-end fashion. Surgical adhesive was then placed at each of our anastomoses to help with hemostasis. The aortic root vent was replaced into the ascending aorta through a pledgeted stitch. A shot of warm straight blood was then administered. The patient was placed in Trendelenburg position and several Valsalva breaths were given. The aortic cross-clamp was then removed. I continued venting through the aortic root and left ventricle. The retrograde cardioplegia cannula was removed. Temporary ventricular pacing wires were placed. There was very slow return of cardiac activity. I then began to wean from bypass. The heart was volume loaded and began to eject. The pump flows are gradually reduced and the lungs are ventilated. As I weaned from bypass the left ventricular vent was removed and the site was secured. I also discontinued the aortic root vent. I was eventually able to wean completely off bypass with no inotropic support needed. Once off bypass the venous cannula was removed. ENRIQUE showed there to be preserved ventricular function. The aortic valve was functioning well with no regurgitation seen.. Protamine was tested. Once half the protamine was given the arterial cannula was removed and the site was secured. Hemostasis was assured at each of the surgical sites. A single chest tube was placed in the mediastinum. I then turned attention to closure. The pericardium was approximated with several interrupted stitches. The sternum was approximated with heavy steel wires in a [id number] fashion. The soft tissues were then closed in layers with running observable sutures. The procedure was then terminated. At the end of the procedure all the sponge and sharp counts were correct. Disposition: The patient having tolerated the procedure well was taken in stable condition to the HLU. He will be monitored closely as to outputs and hemodynamics. Antonieta Solano DO FACS Cardiothoracic Surgery documented in this [facility]05-20-2025 History of Present illness Narrative* Anay Johnson, STEAM LOCOMOTIVE FIRER/FIREMAN - 08/16/2024 12:03 PM EDT Images from the original note were not included. PHYSICAL THERAPY [facility] Treatment Note Name/MRN: Erickson Riggs ([id number]) Date of : 1960 Age: 64 y.o. Room/Bed: T1-118/T1-118 A Discharge Recommendation: Continue to assess pending progress (LTACH vs. SNF depending on progress and medical needs) Other: TBD - has FWW and WC Assessment Pt requires min assist to CGA for transfers and ambulation. He is impulsive and at increased risk for falls. No PT goals met this session. Recommend SNF vs. LTACH at discharge. Subjective Pt is sitting up in the chair with sitter present. Agrees to PT. Pain: Pt denies any current pain. Medical Precautions: No active isolations Proper PPE donned/doffed in accordance with facility standards. Fall Risk: Nelson Fall Risk Score: 40 (Medium Risk) Precautions/Restrictions: Sternal Precautions: No lifting greater than 10 lbs. Ok for modified UE precautions using Keep Your Move in the Tube technique Lines/Drains/Airways: high flow O2 Skin care precautions Overall Cognitive Status: Exceptions - Problem solving: assistance required to identify errors made, assistance required to correct errors made, and decreased awareness of errors - Insights: decreased awareness of deficits - impulsive Overall Orientation Status: Oriented to Person Family/Caregiver Present: none Objective Transfers/Mobility Sit to stand: Contact Guard Stand to sit: Contact Guard Verbal cues needed for sternal precaution compliance Ambulation Ambulation 1 Assistive device(s) used: None Assist level: Min Assist Distance (ft): 100 ft Quality of gait: 2 standing rest breaks O2 on 6L Balance During Session: Static stand with SBA Plan Continue acute PT per plan of care. Safety/Education Safety Safety Devices in place: All fall risk precautions in place, call light within reach, left in chair, patient at risk for falls, nurse notified, and pvc monitor present Restraints: No Education Education Given To: patient Education Provided: PT Role, PT Goals, Gait Training, Plan of Care, Transfer Training, and Discharge Recommendations Education Method: Verbal Barriers to Learning: Cognition Education Outcome: Verbalized Understanding and Continued Education Needed Outcome Measures AM-PAC AM-PAC Inpatient Mobility Raw Score (No Stairs) : 15 JH-HLM JH-HLM Score: Walked 25 ft or more (i.e. walked outside of room) Goals Patient Stated Goal: to go home Encounter Problems Encounter Problems (Active) Cardiac Patient will perform bed mobility with modified independence in order to improve independence and prepare for out of bed mobility. (Not Addressed) Start: 08/04/24 Expected End: 09/01/24 Patient will complete sit to stand transfer with modified independence to no assistive device in order to improve safety and prepare for out of bed mobility. (Progressing) Start: 08/04/24 Expected End: 09/01/24 Patient will ambulate 350 feet or ambulate 5 minutes with modified independence with RPE of 14 or lower. (Progressing) Start: 08/04/24 Expected End: 09/01/24 Patient will ascend and descend 5 stairs with supervision rail for balance only. (Not Addressed) Start: 08/04/24 Expected End: 09/01/24 Patient will be independent with P&C exercises. (Not Addressed) Start: 08/04/24 Expected End: 09/01/24 Patient will be independent with managing secretions and home walking program. (Progressing) Start: 08/04/24 Expected End: 09/01/24 Pain - Adult Therapy Time Individual Co-treatment Time In 1135 Time Out 1159 Minutes 24 Timed Code Treatment Minutes: (GT, FA) Anay Johnson PTA Cosigned by Melissa Allen, PT at 08/16/2024 4:18 PM EDT * Russel Nunez, COMMERCIAL PEST CONTROL REPRESENTATIVE - PLUMBING MANAGER - 08/16/2024 9:18 AM EDT Images from the original note were not included. Cardiothoracic Surgery/CCM Progress Note PATIENT NAME: Erickson Riggs DATE: 08/16/24 HPI: 64 yo male with PMH of HTN, aortic aneurysm, afib, cardiomyopathy, SONIA, former tobacco use, marijuana use, and solitary kidney. Pt follows with Cardiology who ordered an annual CTA chest which was completed on 04/26/24 and showed ascending thoracic aorta measures up to 5.2 cm. Previous CTA chest completed on 04/03/23 showed dilated ascending aorta measuring 4.7 cm. He was referred to Dr. Solano as an OP. He admits to being sedentary most of the time, washing dishes wears him out. Surgery/Procedure: 08/03/24: s/p valve sparing aortic root and ascending aorta replacement with 30mm Cardioroot graft, Left atrial appendage exlusion with 40mm Atriclip, ENRIQUE with Dr. Solano Interval History: 08/16/24, POD# 13. Afebrile, NSR on tele, BP stable, on 6L NC. Patient agitated about iyer, threatened "violence" yesterday if not removed. Occasionally refusing medications, did not want GI workup.Patient more calm throughout afternoon and night. Up in chair this AM, more appropriate today. Objective: UO cc/24hrs: 4,000 Last BM Date: 08/15/24 Vitals: BP: 97/71, MAP (mmHg): 79, BP Method: Automatic Heart Rate: 75 Resp: 20 Temp: 36 C (96.8 F), Temp Source: Temporal BMI (Calculated): 46.07 BMP: Recent Labs 08/14/24 0041 08/14/24 1201 08/15/24 0035 08/16/24 0358 NA 141 137 139 137 K 3.4* 3.9 3.7 4.1 CL 94* 94* 97* 96* CO2 34* 32* 32* 30 BUN 35* 28* 27* 31* CREATININE 1.26* 1.34* 1.28* 1.38* CALCIUM 9.0 9.1 8.9 8.9 MG 1.9 -- 1.9 2.1 CBC: Recent Labs 08/14/24 0041 08/14/24 1313 08/15/24 0035 08/16/24 0358 WBC 11.4* -- 13.0* 13.6* HGB 10.7* 11.9 11.1* 10.7* HCT 32.8* -- 34.0* 34.1* PLT 206 -- 196 192 MCV 89.4 -- 89.5 91.2 RDW 14.3 -- 14.0 13.6 INR: No results for input(s): "INR" in the last 72 hours. Physical Exam Vitals reviewed. Constitutional: General: He is not in acute distress. Appearance: He is not ill-appearing or diaphoretic. Cardiovascular: Rate and Rhythm: Normal rate and regular rhythm. Pulses: Normal pulses. Heart sounds: No murmur heard. Pulmonary: Effort: Pulmonary effort is normal. Breath sounds: No wheezing, rhonchi or rales. Comments: On NC. Abdominal: General: There is distension. Palpations: Abdomen is soft. Tenderness: There is no abdominal tenderness. Genitourinary: Comments: Iyer. Musculoskeletal: General: Swelling present. Skin: General: Skin is warm and dry. Capillary Refill: Capillary refill takes 2 to 3 seconds. Findings: Bruising present. Comments: Surgical incisions well approximated, no redness, warmth or drainage noted. Neurological: General: No focal deficit present. Mental Status: He is alert and oriented to person, place, and time. Assessment: Aortic aneurysm s/p valve sparing aortic root replacement Cardiomyopathy HTN SONIA S/p nephrectomy d/t tumor Former smoker Marijuana smoker Hx ischemic stroke Post operative Pulm Management: Normal Post-operative Course Post-operative Atrial Fibrillation: [x]Yes [] No Acute blood loss anemia/consumptive thrombocytopenia Plan: Patient status: ICU Discussed with Urology this AM, plan to remove catheter. -Recommend post void residual scan. Consult Psych for evaluation. Increase Cardura to 4mg daily. Hold amlodipine for now until BP monitored on increased dose of Cardura. Resume Eliquis. Amio 400mg BID. Metoprolol XL 100mg daily. Bumex 2mg BID +K supplementation. Continue to monitor UO and creatinine. Nocturnal precedex. PAP at night, wean supplemental O2 as able, goal SpO2>90%. Lights on and limit napping during the day as able, encourage activity. Bowel regimen. Lab draws between 4-6AM, promote sleep at night. Out of bed for meals. Aggressive PT/OT. GI prophy: PO protonix DVT prophy:TEDs, SCDs, and Patient on OAC/NOAC Pulmonary hygiene: IS and Acapella Consults: Urology. Endocrinology. GI. PT/OT: Continue to assess (08/13/24) TCC/Discharge Planning: Okay to [facility] to [facility] for continued O2 wean, PT/OT. Central Line: []Yes [x] No Arterial Line: []Yes [x] No Iyer: []Yes [x] No Restraints: []Yes [x] No Patient discussed and plan of day developed from multidisciplinary rounds between Cardiothoracic Surgery (Cardiothoracic Surgeon, [facility]) and Critical Care Attending Critical Care time spent 20 minutes. The time involved in the performance of this care was exclusive of separately billable procedures, teaching time and treating other patients. The time was spent personally by myself for the following activities: examination of the patient, ordering and/or performing treatment, reviewing the laboratory and radiographic studies, and if applicable, ventilator management and blood gas interpretation. Cardiac Core Medications: Not indicated due to type of surgery EF: 74% (07/04/24) Blood Conservation: None noted in post-operative period Re Recording Mixer: Dr. Bragg Cosigned by Evaristo Licona DO at 08/16/2024 12:23 PM EDT Associated attestation - Evaristo Licona DO - 08/16/2024 12:23 PM EDT I have personally performed a [id number] diagnostic evaluation on this patient on date of ivhmygs28/20/25. History, labs, imaging studies, and electronic medical record have been reviewed by me. This note documented by the [facility] reflects my history, exam, and medical decision making. I have reviewed and agree with the care plan. Changes were made in the orders as necessary. ROS documentation wasreviewed and negative unless otherwise stated in HPI. Additional pertinent interval history, ROS, and physical exam findings: AdmitDate = 08/03/2024 LOS: 13 ON Event(s): Yes, describe: did not find help with precedex, was upset about diet change and remains upset aboutfoley being in place. Assessment: Aortic aneurysm s/p ascending aortic repair. cardiomyopathy Afib T2DM with stress hyperglycemia SONIA -- not wearing PAP in hosp Urinary retention with iyer in place Solitary kidney in setting of previous right nephrectomy for nonmalignant tumor Marijuana use Former tobacco use Plan: Continue current cardiac meds. Resume eliquis. Reached out to uro this morning about iyer. If pt continues to threaten violent behavior, will remove iyer after discussion with pt regarding risks. If iyer removed and pt develops significant retention could threaten fcn of remaining kidney. Continue cardura. Consult psych today d/t pt repeated threats of violent behavior and inappropriate behavior towards nursing staff. Pt, at times, displays manic behavior. Unclear if they can offer any assistance. Remainder of plan per [facility] note. Disposition: Unchanged. Critical Care Time: n/a Or Noncritical Care Time: 35min Total time caring for this patient including direct patient contact, review of data including imaging and labs, discussions with other team members and physicians, excluding procedures. * Cori iRley PA-C - 08/16/2024 8:06 AM EDT Department of Internal Medicine Gastroenterology Progress Note SUBJECTIVE: GI following for episode of blood tinged bowel movement. Patient doing okay this morning, he is upright in chair. Did eat breakfast this AM. Medications Scheduled Meds:Current Medications[1] OBJECTIVE VITALS: BP 122/60 (BP Location: Right arm) Pulse 119 Temp 36.7 C (98 F) (Oral) Resp 25 Ht 6' (1.829 m) Wt (!) 339 lb 11.7 oz (154 kg) SpO2 94% PF 57 L/min BMI 46.08 kg/m Average, Min, and Max for last24 hours Vitals: TEMPERATURE: Temp Av.3 C (97.4 F) Min: 36 C (96.8 F) Max: 36.7 C (98.1 F) RESPIRATIONS RANGE: Resp Av.1 Min: 16 Max: 30 PULSE RANGE: Pulse Av.8 Min: 63 Max: 125 BLOOD PRESSURE RANGE: Systolic (24hrs), Av , Min:97 , Max:132 ; Diastolic (24hrs), Av, Min:52, Max:117 PULSE OXIMETRY RANGE:SpO2 Av.2 % Min: 90 % Max: 100 % I/O last 3 completed shifts: In: 433 (2.8 mL/kg) [I.V.:433 (2.8 mL/kg)] Out: 7087 (46 mL/kg) [Urine:7087 (1.3 mL/kg/hr)] Weight: 154.1 kg Physical Exam Vitals reviewed. Constitutional: Appearance: He is obese. HENT: Head: Normocephalic and atraumatic. Mouth/Throat: Mouth: Mucous membranes are moist. Eyes: Extraocular Movements: Extraocular movements intact. Pupils: Pupils are equal, round, and reactive to light. Cardiovascular: Rate and Rhythm: Normal rate. Comments: Sternal scar noted Pulmonary: Effort: Pulmonary effort is normal. Breath sounds: Normal breath sounds. Comments: NC in place Abdominal: Palpations: Abdomen is soft. Genitourinary: Rectum: Guaiac result negative. External hemorrhoid (w/ external tags) present. Musculoskeletal: Right lower leg: No edema. Left lower leg: No edema. Skin: General: Skin is warm and dry. Neurological: Mental Status: He is alert and oriented to person, place, and time. Psychiatric: Mood and Affect: Mood normal. Data Recent blood work, radiologic study and endoscopic study were reviewed with the patient. CBC: Recent Labs 08/14/24 0041 08/14/24 1313 08/15/24 0035 08/16/24 0358 WBC 11.4* -- 13.0* 13.6* RBC 3.67* -- 3.80* 3.74* HGB 10.7* 11.9 11.1* 10.7* HCT 32.8* -- 34.0* 34.1* MCV 89.4 -- 89.5 91.2 MCH 29.2 -- 29.2 28.6 MCHC 32.6 -- 32.6 31.4 RDW 14.3 -- 14.0 13.6 PLT 206 -- 196 192 MPV 9.8 -- 9.7 10.0 CMP: Recent Labs 08/14/24 1201 08/15/24 0035 08/16/24 0358 NA 137 139 137 K 3.9 3.7 4.1 CL 94* 97* 96* CO2 32* 32* 30 BUN 28* 27* 31* CREATININE 1.34* 1.28* 1.38* GLUCOSE 102 116* 89 CALCIUM 9.1 8.9 8.9 PT/INR: No results for input(s): "INR" in the last [address] head wo IV contrast Final Result Impression: Remote stroke suspected. Chart review supports stroke 14 years ago. No convincing acute process seen. CT cervical spine: Indication: Trauma and neck pain FINDINGS: Dose reduction was employed with automated exposure control. Unenhanced cervical spine performed. 3-D imaging created and reviewed on independent 3-D workstation for better detection of pathology evaluation of neural foramina. Limited by motion. Bone density:Normal. Acute lesions: No convincing acute process within limits of the study. Soft tissues: No convincing soft tissue swelling. Arthritis: Degenerative changes visible. Posterior osteophytes cause neural foraminal narrowing. Limited views of skull base unremarkable. Visualized portions of lung apices Show no major volume loss.. IMPRESSION: No convincing acute process within limits of the study. Comment: Please note this report has been produced using speech recognition software and may contain errors related to that system including errors in grammar, punctuation, and spelling as well as words and phrases that may be inappropriate. If there are any questions or concerns please feel free to contact the dictating provider for clarification Report Dictated on Electronically Signed By: Derian Tafoya MD Electronically Signed Date/Time: 08/14/2024 5:[address] cervical spine wo IV contrast Final Result Impression: Remote stroke suspected. Chart review supports stroke 14 years ago. No convincing acute process seen. CT cervical spine: Indication: Trauma and neck pain FINDINGS: Dose reduction was employed with automated exposure control. Unenhanced cervical spine performed. 3-D imaging created and reviewed on independent 3-D workstation for better detection of pathology evaluation of neural foramina. Limited by motion. Bone density:Normal. Acute lesions: No convincing acute process within limits of the study. Soft tissues: No convincing soft tissue swelling. Arthritis: Degenerative changes visible. Posterior osteophytes cause neural foraminal narrowing. Limited views of skull base unremarkable. Visualized portions of lung apices Show no major volume loss.. IMPRESSION: No convincing acute process within limits of the study. Comment: Please note this report has been produced using speech recognition software and may contain errors related to that system including errors in grammar, punctuation, and spelling as well as words and phrases that may be inappropriate. If there are any questions or concerns please feel free to contact the dictating provider for clarification Report Dictated on Electronically Signed By: Derian Tafoya MD Electronically Signed Date/Time: 08/14/2024 5:38 PM EDT Endoscopic Review Colonoscopy/EGD ([facility], 2021) - Diverticulosis, Hemorrhoids ASSESSMENT AND PLAN External Hemorrhoid External Skin Tag H/O valve sparing aortic root and ascending aorta replacement, left atrial appendage exlusion (Russ, 08/03/2024) H/O Diverticulosis H/O External Hemorrhoids - Hgb stable at 10.7; monitor h/h transfuse as necessary - rectal exam completed demonstrating external hemorrhoid and skin tag which likely explains bleeding patient saw on toilet paper - should follow up outpatient w/ [facility] for follow up colonoscopy - patient left prior to staffing w/ GI attending; will staff w/ RUBEN De La Paz I saw and evaluated the patient, participating in the velarde portions of the service. I reviewed the residents note. I agree with the findings and plan. Following patient for GI bleed. Hgb stable. Per residents note patient with hemorrhoids which he reported yesterday as source of bleeding. Rectal exam as above. He can follow up OP with his primary GI. [facility]. Cori Riley PA-C 2:04 PM 08/16/24 [1] Current Facility-Administered Medications: acetaminophen (Tylenol) tablet 1,000 mg, 1,000 mg, Oral, q8h, Russel Nunez APRN - PLUMBING MANAGER, 1,000 mg at 08/15/24 0801 amiodarone (Pacerone) tablet 400 mg, 400 mg, Oral, BID, GARY Farrell CNP, 400 mg at 08/16/24 0833 [Held by provider] amLODIPine (Norvasc) tablet 5 mg, 5 mg, Oral, Daily, GARY Farrell CNP, 5 mg at 08/15/24 08 apixaban (Eliquis) tablet 5 mg, 5 mg, Oral, BID, GARY Farrell CNP, 5 mg at 08/16/24832 asenapine (Saphris) SL tablet 5 mg, 5 mg, SubLINGual, Nightly, GARY Farrell CNP, 5 mg at 08/15/242021 bumetanide (Bumex) tablet 1 mg, 1 mg, Oral, BID, GARY Farrell CNP calcium gluconate 2000 mg in 100 mL IVPB premix, 2,000 mg, IntraVENous, PRN, JENA Farrell CNP, Stopped at 08/05/24 0117 dextrose 5 % infusion, 100 mL/hr, IntraVENous, PRN, Prakash Doe MD dextrose 50 % solution 12.5 g, 12.5 g, IntraVENous, PRN, Prakash Doe MD doxazosin (Cardura) tablet 4 mg, 4 mg, Oral, Daily, GARY Farrell CNP, 4 mg at 08/16/24832 glucagon (human recombinant) injection 1 mg, 1 mg, IntraMUSCular, PRN, Prakash Doe MD glucose oral gel 15 g, 15 g, Oral, PRN, Prakash Doe MD guaiFENesin (Mucinex) 12 hr tablet 600 mg, 600 mg, Oral, BID, GARY Farrell CNP, 600 mg at 08/15/242021 [START ON 08/17/2024] insulin glargine (Lantus) pen 12 Units, 12 Units, SubCUTAneous, q AM, GARY Munoz CNP Insulin Lispro (Humalog) injection 0-12 Units, 0-12 Units, SubCUTAneous, TID WC, Cassidy Hewitt MD ipratropium-albuterol (Duo-Neb) 0.5-2.5 mg/3 mL nebulizer solution 3 mL, 3 mL, Nebulization, TID PRN, GARY Farrell PLUMBING MANAGER, 3 mL at 08/08/24 0611 Lidocaine 4 % patch 1 patch, 1 patch, Topical, Daily, GARY Farrell CNP, 1 patch at 08/14/24 0904 Lidocaine 4 % patch 1 patch, 1 patch, TransDERmal, Daily, GARY Pandya CNP, 1 patchat 08/14/24 0904 magnesium hydroxide (Milk of Magnesia) 400 MG/5ML suspension 30 mL, 30 mL, Oral, Daily PRN, GARY Verduzco PLUMBING MANAGER, 30 mL at 08/06/24 0522 magnesium sulfate IVPB premix 2,000 mg, 2,000 mg, IntraVENous, PRN OR magnesium sulfate IVPB 4,000 mg, 4,000 mg, IntraVENous, PRN, GARY Farrell CNP melatonin tablet 5 mg, 5 mg, Oral, Nightly PRN, Prakash Doe MD, 5 mg at 08/08/24 2048 metFORMIN XR (Glucophage-XR) 24 hr tablet 500 mg, 500 mg, Oral, BID , GARY Sequeira CNP metoprolol succinate XL (Toprol-XL) 24 hr tablet 100 mg, 100 mg, Oral, Daily, GARY Pandya CNP, 100 mg at 08/16/24 0833 naloxone (Narcan) injection 0.4 mg, 0.4 mg, IntraVENous, q5 min PRN, Mars Solano DO ondansetron ODT (Zofran-ODT) disintegrating tablet 4 mg, 4 mg, Oral, q8h PRN OR ondansetron (Zofran) injection 4 mg, 4 mg, IntraVENous, q6h PRN, GARY Farrell CNP oxyCODONE (Roxicodone) immediate release tablet 5 mg, 5 mg, Oral, q4h PRN, 5 mg at 08/15/24 1553 OR oxyCODONE (Roxicodone) immediate release tablet 10 mg, 10 mg, Oral, q4h PRN, GARY Farrell CNP, 10 mg at 08/11/24 0136 pantoprazole (ProtoNix) EC tablet 40 mg, 40 mg, Oral, qAM AC, GARY Farrell CNP, 40 mg at 08/16/24 0530 polyethylene glycol (PEG) 3350 (Miralax) packet 17 g, 17 g, Oral, Daily, GARY Farrell PLUMBING MANAGER, 17 g at 08/15/24 0801 potassium chloride IVPB 20 mEq, 20 mEq, IntraVENous, TID PRN OR Potassium Chloride in NaCl IVPB20 mEq, 20 mEq, IntraVENous, q8h PRN OR potassium chloride 40 mEq in NS 500 mL IVPB (premix), 40 mEq, IntraVENous, TID PRN, GARY Farrell CNP potassium chloride CR (Klor-Con M10) ER tablet 20 mEq, 20 mEq, Oral, PRN, Russel Nunez APRN - NICOLE, 20 mEq at 08/14/24 0339 potassium chloride CR (Klor-Con M10) ER tablet 40 mEq, 40 mEq, Oral, Daily, GARY Farrell CNP, 40 mEq at 08/16/24 0832 senna-docusate sodium (Senokot-S) 8.6-50 MG tablet 2 tablet, 2 tablet, Oral, Nightly, GARY Farrell CNP, 2 tablet at 08/14/24 2024 sulfamethoxazole-trimethoprim (Bactrim DS) 800-160 MG per tablet 1 tablet, 1 tablet, Oral, q12h, GARY Giron CNP, 1 tablet at 08/16/24 1020 Current Outpatient Medications: acetaminophen (Tylenol) 500 MG tablet, Take 2 tablets (1,000 mg) by mouth every 8 hours., Disp: , Rfl: amiodarone (Pacerone) 200 MG tablet, Take 2 tablets (400 mg) by mouth 2 times daily for 10 days, THEN 2 tablets (400 mg) daily for 10 days, THEN 1 tablet (200 mg) daily for 7 days., Disp: , Rfl: apixaban (Eliquis) 5 MG tablet, Take 1 tablet (5 mg) by mouth 2 times daily., Disp: , Rfl: bumetanide (Bumex) 1 MG tablet, Take 1 tablet (1 mg) by mouth 2 times daily., Disp: , Rfl: [START ON 08/17/2024] doxazosin (Cardura) 4 MG tablet, Take 1 tablet (4 mg) by mouth daily., Disp: ,Rfl: [START ON 08/17/2024] insulin glargine (Lantus) 100 UNIT/ML pen, Inject 12 Units under the skin every morning. Do not start before August 17, 2024., Disp: , Rfl: Insulin Lispro (Humalog) 100 UNIT/ML solution injection, Inject 0-12 Units under the skin 3 times daily (with meals)., Disp: , Rfl: ipratropium-albuterol (Duo-Neb) 0.5-2.5 mg/3 mL nebulizer solution, Take 3 mL by nebulization 3 times daily as needed for wheezing or shortness of breath., Disp: , Rfl: [START ON 08/17/2024] Lidocaine 4 % patch, Apply 1 patch topically daily., Disp: , Rfl: melatonin 5 MG tablet, Take 1 tablet (5 mg) by mouth Nightly as needed (Insomnia)., Disp: , Rfl: metFORMIN XR (Glucophage-XR) 500 MG 24 hr tablet, Take 1 tablet (500 mg) by mouth 2 times daily (with meals). Do not crush, chew, or split., Disp: , Rfl: [START ON 08/17/2024] metoprolol succinate XL (Toprol-XL) 100 MG 24 hr tablet, Take 1 tablet (100 mg) by mouth daily. Do not crush or chew., Disp: , Rfl: oxyCODONE (Roxicodone) 5 MG immediate release tablet, Take 1 tablet (5 mg) by mouth every 4 hours as needed for moderate pain (4-6) or severe pain (7-10)., Disp: , Rfl: [START ON 08/17/2024] pantoprazole (ProtoNix) 40 MG EC tablet, Take 1 tablet (40 mg) by mouth every morning (before breakfast). Do not crush, chew, or split., Disp: , Rfl: [START ON 08/17/2024] polyethylene glycol, PEG, 3350 (Miralax) 17 g packet, Take 17 g by mouth daily., Disp: , Rfl: [START ON 08/17/2024] potassium chloride CR (Klor-Con M20) 20 MEQ ER tablet, Take 1 tablet (20 mEq) by mouth daily. Do not crush or chew. While taking bumex., Disp: , Rfl: sulfamethoxazole-trimethoprim (Bactrim DS) 800-160 MG tablet, Take 1 tablet by mouth every 12 hoursfor 13 doses., Disp: , Rfl: * Ofelia Purdy RRT - 08/15/2024 8:20 PM EDT [facility] Respiratory Care Department Progress Note Comment or reasoning for refusal: Patient was seen in attempts to fulfill CPAP/BiPAP/AutoPAP order. Patient refused PAP therapy/studyat this time. Patient was educated on medical need and reasoning for physician order to ensure patient was making an informed medical decision. All of the patient's questions were answered at this time and patient was informed that if the patient changes their mind regarding wearing PAP to hit their "call light" or inform their nurse to contact Respiratory. A second, consecutive night of refusing PAP therapy/study results in order completion in the EMR. If future CPAP/BiPAP/AutoPAP therapy or study is indicated please place another order in the EMR and the assigned Respiratory Therapist will reattempt to fulfill orders. Reason for refusal: doesn't want to wear Thank you for involving Respiratory in the care of this patient, * Evaristo Licona DO - 08/15/2024 5:52 PM EDT Physician Response Please review the following and provide your response below. Please clarify which of the following accurately describes the patient's pulmonary edema: Postop fluid overload only This documentation will become part of the patient's medical record. * Evaristo Licona DO - 08/15/2024 5:52 PM EDT Physician Response Please review the following and provide your response below. Please clarify which of the following accurately describes the patient's CKD Stage: CKD Stage 2 (GFR 60-89) This documentation will become part of the patient's medical record. * Russel Nunez APRN - PLUMBING MANAGER - 08/15/2024 3:25 PM EDT Images from the original note were not included. Cardiothoracic Surgery Note PATIENT NAME: Erickson Riggs : 1960 (64 y.o.) TODAY'S DATE: 08/15/2024 Objective: BP 101/75 (BP Location: Right arm, Patient Position: Sitting) Pulse 74 Temp 36.3 C (97.3 F) (Temporal) Resp 20 Ht 6' (1.829 m) Wt (!) 337 lb 4.9 oz (153 kg) SpO2 95% PF 57 L/min BMI 45.75 kg/m Asked to come to bedside by RN. Patient agitated, complaining of burning sensation and pain d/t iyer catheter. Stating that he is going to become violent and pull it out if we do not remove it. Discussed with patient the reason for needing catheter and potential harm if he does pull it. Then states he had pulled one out in the past, which is why he now has issues. Continues to say that he has had retention and stream problems in the past. Patient also refusing any pain medications. Refuses to take Flomax. By end of discussion, patient more calm. Discussed with nursing. If patient becomes agitated again and threatening, okay to remove iyer, though may require intermittent straight caths. * Anay Johnson, STEAM LOCOMOTIVE FIRER/FIREMAN - 08/15/2024 2:25 PM EDT Images from the original note were not included. PHYSICAL THERAPY [facility] Treatment Note Name/MRN: Erickson Riggs ([id number]) Date of : 1960 Age: 64 y.o. Room/Bed: T1-118/T1-118 A Discharge Recommendation: Continue to assess pending progress (LTACH vs. SNF depending on progress and medical needs) Other: TBD - has FWW and WC Assessment Pt needed verbal cues and demo for proper technique/ROM with exercises. Pt demos decreased safety awareness and insight into deficits. No PT goals met this session. Recommend SNF vs LTAC at discharge. Subjective Pt is sitting up in the chair, agrees to exercises in the chair, but refused mobility secondary to his iyer catheter bothering him. Pain: discomfort from iyer Medical Precautions: No active isolations Proper PPE donned/doffed in accordance with facility standards. Fall Risk: Nelson Fall Risk Score: 75 (High Risk) Precautions/Restrictions: Sternal Precautions: No lifting greater than 10 lbs. Ok for modified UE precautions using Keep Your Move in the Tube technique Lines/Drains/Airways: O2 Skin care precautions Overall Cognitive Status: Exceptions - Memory: decreased short term memory - Safety judgement: decreased awareness of need for assistance and decreased awareness of need for safety - Insights: decreased awareness of deficits Overall Orientation Status: Oriented to Place and Oriented to Person Family/Caregiver Present: child(rere) Objective Exercises Exercises Knee Long Arc Quad: BLE x10 reps Ankle Pumps: BLE x10 reps Upper Extremity: P&C exercises 1-9 x 8-10 reps each Other exercises Other exercises?: Yes Other exercises 1: I.S. 7472-4478 mL x 5 reps Plan Continue acute PT per plan of care. Safety/Education Safety Safety Devices in place: All fall risk precautions in place, call light within reach, left in chair, patient at risk for falls, nurse notified, and no alarms engaged upon entry Restraints: No Education Education Given To: patient Education Provided: PT Role, PT Goals, Plan of Care, Precautions, and Discharge Recommendations Education Method: Verbal Barriers to Learning: None Education Outcome: Continued Education Needed Outcome Measures AM-PAC AM-PAC Inpatient Mobility Raw Score (No Stairs) : 15 JH-HLM -HLM Score: Bed activity Goals Patient Stated Goal: to go home Encounter Problems Encounter Problems (Active) Cardiac Patient will perform bed mobility with modified independence in order to improve independence and prepare for out of bed mobility. (Not Addressed) Start: 08/04/24 Expected End: 09/01/24 Patient will complete sit to stand transfer with modified independence to no assistive device in order to improve safety and prepare for out of bed mobility. (Not Addressed) Start: 08/04/24 Expected End: 09/01/24 Patient will ambulate 350 feet or ambulate 5 minutes with modified independence with RPE of 14 or lower. (Not Addressed) Start: 08/04/24 Expected End: 09/01/24 Patient will ascend and descend 5 stairs with supervision rail for balance only. (Not Addressed) Start: 08/04/24 Expected End: 09/01/24 Patient will be independent with P&C exercises. (Progressing) Start: 08/04/24 Expected End: 09/01/24 Patient will be independent with managing secretions and home walking program. (Progressing) Start: 08/04/24 Expected End: 09/01/24 Pain - Adult Therapy Time Individual Co-treatment Time In 1410 Time Out 1421 Minutes 11 Timed Code Treatment Minutes: (TP) Anay Johnson PTA Cosigned by Melissa Allen PT at 08/15/2024 3:55 PM EDT * Russel Nunez, GARY - PLUMBING MANAGER - 08/15/2024 9:49 AM EDT Images from the original note were not included. Cardiothoracic Surgery/CCM Progress Note PATIENT NAME: Erickson Riggs DATE: 08/15/24 HPI: 64 yo male with PMH of HTN, aortic aneurysm, afib, cardiomyopathy, SONIA, former tobacco use, marijuana use, and solitary kidney. Pt follows with Cardiology who ordered an annual CTA chest which was completed on 04/26/24 and showed ascending thoracic aorta measures up to 5.2 cm. Previous CTA chest completed on 04/03/23 showed dilated ascending aorta measuring 4.7 cm. He was referred to Dr. Solano as an OP. He admits to being sedentary most of the time, washing dishes wears him out. Surgery/Procedure: 08/03/24: s/p valve sparing aortic root and ascending aorta replacement with 30mm Cardioroot graft, Left atrial appendage exlusion with 40mm Atriclip, ENRIQUE with Dr. Solano Interval History: 08/15/24, POD# 12: Afebrile, NSR on tele, BP stable (soft at times), on 6L NC this AM, wore PAP overnight. Increasing delirium and confusion over the weekend, found on floor. Testing post-fall negative. This AM, patient appears more calm, answering questions appropriately. Per nursing, slept betterlast night with nocturnal precedex. Objective: UO cc/24hrs: 4,287 Last BM Date: 08/14/24 Vitals: BP: 101/52, MAP (mmHg): 68, BP Method: Automatic Heart Rate: 71 Resp: 23 Temp: 36 C (96.8 F), Temp Source: Temporal BMI (Calculated): 45.74 BMP: Recent Labs 08/13/24 0133 08/13/24 1229 08/14/24 0041 08/14/24 1201 08/15/24 0035 NA 142 < > 141 137 139 K 3.6 < > 3.4* 3.9 3.7 CL 95* < > 94* 94* 97* CO2 34* < > 34* 32* 32* BUN 39* < > 35* 28* 27* CREATININE 1.20 < > 1.26* 1.34* 1.28* CALCIUM 9.5 < > 9.0 9.1 8.9 MG 2.0 -- 1.9 -- 1.9 < > = values in this interval not displayed. CBC: Recent Labs 08/13/24 0133 08/14/24 0041 08/14/24 1313 08/15/24 0035 WBC 13.3* 11.4* -- 13.0* HGB 11.2* 10.7* 11.9 11.1* HCT 35.4* 32.8* -- 34.0* PLT 219 206 -- 196 MCV 90.8 89.4 -- 89.5 RDW 14.7 14.3 -- 14.0 INR: No results for input(s): "INR" in the last 72 hours. Physical Exam Vitals reviewed. Constitutional: General: He is not in acute distress. Appearance: He is not ill-appearing or diaphoretic. Cardiovascular: Rate and Rhythm: Normal rate and regular rhythm. Pulses: Normal pulses. Heart sounds: No murmur heard. Pulmonary: Effort: Pulmonary effort is normal. Breath sounds: No wheezing, rhonchi or rales. Comments: On NC. Abdominal: General: There is distension. Palpations: Abdomen is soft. Tenderness: There is no abdominal tenderness. Genitourinary: Comments: Iyer. Musculoskeletal: General: Swelling present. Skin: General: Skin is warm and dry. Capillary Refill: Capillary refill takes 2 to 3 seconds. Findings: Bruising present. Comments: Surgical incisions well approximated, no redness, warmth or drainage noted. Neurological: General: No focal deficit present. Mental Status: He is alert and oriented to person, place, and time. Assessment: Aortic aneurysm s/p valve sparing aortic root replacement Cardiomyopathy HTN SONIA S/p nephrectomy d/t tumor Former smoker Marijuana smoker Hx ischemic stroke Post operative Pulm Management: Normal Post-operative Course Post-operative Atrial Fibrillation: [x]Yes [] No Acute blood loss anemia/consumptive thrombocytopenia Plan: Patient status: ICU Urology consulted for retention. -Catheter replaced over weekend. GI consulted d/t bloody stool over weekend. -Will hold Eliquis for now. Amiodarone 400mg BID. Metoprolol 100mg daily. Bumex 2mg BID. -Still having good output. -Creatinine trending down. -K supplementation daily. Home meds: amlodipine 5mg daily (was on 10mg), Cardura 2mg daily. Nocturnal precedex. PAP at night, wean supplemental O2 as able, goal SpO2>90%. Lights on and limit napping during the day as able, encourage activity. Bowel regimen. Lab draws between 4-6AM, promote sleep at night. Out of bed for meals. GI prophy: PO protonix DVT prophy:TEDs, SCDs, Heparin SubQ, and will resume NOAC when able. Pulmonary hygiene: IS and Acapella Consults: Urology. Endocrinology. GI. PT/OT: Continue to assess (08/13/24) TCC/Discharge Planning: Continue to monitor, anticipate DC by end of week. Central Line: []Yes [x] No Arterial Line: []Yes [x] No Iyer: []Yes [x] No Restraints: []Yes [x] No Patient discussed and plan of day developed from multidisciplinary rounds between Cardiothoracic Surgery (Cardiothoracic Surgeon, ENMA) and Critical Care Attending Critical Care time spent 21 minutes. The time involved in the performance of this care was exclusive of separately billable procedures, teaching time and treating other patients. The time was spent personally by myself for the following activities: examination of the patient, ordering and/or performing treatment, reviewing the laboratory and radiographic studies, and if applicable, ventilator management and blood gas interpretation. Cardiac Core Medications: Not indicated due to type of surgery EF: 74% (07/04/24) Blood Conservation: None noted in post-operative period Re Recording Mixer: Dr. Bragg Cosigned by Evaristo Licona DO at 08/15/2024 5:53 PM EDT * GARY Sequeira CNP - 08/15/2024 8:59 AM EDT Department of Internal Medicine Division of Endocrinology, Diabetes, & Metabolism Endocrinology Note Patient Name: Erickson Riggs : 1960 AGE: 64 y.o. Room/Bed: T1-118/T1-118 A Admission Date: 08/03/2024 Visit Date: 08/15/2024 Reason for Endocrine Consult: post heart Provider/Team Requesting Consult: cts PCP: [facility] [employer] Supervisor: No ASSESSMENT: New onset DM2 with hyperglycemia without correction insulin, A1c 7.4% Aortic root replacement on 08-03-24 HTN HLD Morbid obesity Body mass index is 45.75 kg/m . Alcohol and nicotine use PLAN: -BGL has been stable -Continue Lantus 25 units QAM -Continue on Humalog low sliding scale -Diabetes education was complete, however with patient's confusion will need more education prior to discharge -Is on insulin pens however patient is confused with a bedside sitter and will be unable to likely practice ICU goal <180 GMF goal <150 POCT BG ACHS Hypoglycemia management per protocol Carb controlled diet ANTICIPATED ENDOCRINE HOME GOING RECOMMENDATIONS: Optimized for Discharge from Endocrine standpoint: No Home Going Endocrine Rx Recommendations-- Per Meds to beds has no prescription drug coverage Consider metformin and OTC Relion insulin (if insulin requirements still present upon homegoing) consider sulfonylurea Could benefit from sglt2 vs glp1 -although high self pay cost Glucometer, lancets, test trips, alcohol pads needed on DC Outpt Follow Up-- Offered OP Endo follow up; pt declined 08/13/2024 Prefers to follow w/ PCP SUBJECTIVE/HPI: S/p aortic root repair 08-03-24 A1c elevated, did not see any hx of dm2 or diabetes meds in chart review New onset DM2, states family history mother has DM2 he knows a little bit about diabetes Discussed A1c 5-19 BGL overall stable no changes today VSS 02 nc Up in bed awake alert Remains confused Has a bedside sitter Has been eating well-he denies any current nausea vomiting or abdominal pain Diabetes education was completed over a week ago but will need refresher prior to discharge due to confusion Was switched to insulin pens by team over the weekend- he will be unable to practice with his ongoing confusion Spoke with nursing and team Complication History HTN: Endorses HLD: Endorses Renal: Endorses- Solitary Kidney (Nephrectomy 1998) Cardiac: Endorses-Afib, Aoric Aneurysm, Cardiomyopathy CVA: Endorses- CVA (02/2011) SONIA: Endorses- no use of CPAP currently Gastroparesis: Denies H/o Pancreatitis: Denies Impaired Wound Healing: Denies Amputation: Denies Metabolic Dysfunction Associated Steatotic Liver Disease: Endorses Hypoglycemic Unawareness: Denies Type of DM: 2 Onset of DM: 07/27/2024 per PAT A1c testin.4% Home DM Medication Regimen: NA DM control (last A1c/glucose data): Glucose Date/Time Value Ref Range Status 08/15/2024 07:40 AM 128 (H) 70 - 100 mg/dL Final 08/14/2024 08:49 PM 119 (H) 70 - 100 mg/dL Final 08/14/2024 05:04 PM 211 (H) 70 - 100 mg/dL Final 08/14/2024 01:09 PM 109 (H) 70 - 100 mg/dL Final 08/14/2024 11:36 AM 107 (H) 70 - 100 mg/dL Final 08/14/2024 08:48 AM 118 (H) 70 - 100 mg/dL Final Lab Results Component Value Date HGBA1C 7.4 (H) 07/27/2024 Review of Systems Gastrointestinal: Negative for nausea and vomiting. ROS negative except for those mentioned in HPI. OBJECTIVE: Vitals: 08/15/24 0400 08/15/24 0500 08/15/24 0600 08/15/24 0700 BP: 91/59 97/60 94/59 130/71 BP Location: Right arm Patient Position: Lying Pulse: 54 53 53 77 Resp: 16 15 15 15 Temp: 36.1 C (97 F) TempSrc: Temporal SpO2: 93% (!) 89% (!) 89% 92% Weight: (!) 337 lb 4.9 oz (153 kg) Height: PF: Physical Exam Vitals and nursing note reviewed. Constitutional: General: He is not in acute distress. Appearance: He is obese. He is not toxic-appearing. HENT: Head: Normocephalic. Cardiovascular: Rate and Rhythm: Normal rate. Pulmonary: Effort: Pulmonary effort is normal. No respiratory distress. Abdominal: General: There is distension. Tenderness: There is no guarding. Skin: General: Skin is warm and dry. Comments: Intact incision Neurological: Mental Status: He is alert. He is disoriented. Psychiatric: Mood and Affect: Mood normal. 24 hour intake/output: Intake/Output Summary (Last 24 hours) at 08/15/2024 0859 Last data filed at 08/15/2024 0700 Gross per 24 hour Intake 1633 ml Output 3562 ml Net -1929 ml Diet: Adult diet Clear liquid; 5 carb choices (75 gm/meal) Medications (as per EMR): HomeMeds: Current Outpatient Medications Medication Instructions amLODIPine (NORVASC) 10 mg, Daily doxazosin (Cardura) 2 MG tablet 1 tablet, Nightly metoprolol tartrate (LOPRESSOR) 25 mg, 2 times daily Scheduled Meds:Scheduled Meds[1] Continuous Infusions:Continuous Meds[2] PRN Meds:PRN Meds[3] Diagnostic Workup: I reviewed pertinent Laboratory results, Radiographic results, and Other Clinical Notes at the timeof today's encounter. Labs: No components found for: "LABA1C" No components found for: "EAG" Lab Results Component Value Date NA 139 08/15/2024 K 3.7 08/15/2024 CL 97 (L) 08/15/2024 CO2 32 (H) 08/15/2024 BUN 27 (H) 08/15/2024 CREATININE 1.28 (H) 08/15/2024 GLUCOSE 116 (H) 08/15/2024 CALCIUM 8.9 08/15/2024 No results found for: "CHLPL", "CHOL" No results found for: "TRIG" No results found for: "HDL" No results found for: "LDLCALC" No results found for: "VLDL" No results found for: "CHOLHDLRATIO" No results found for: "GZQJ46CXO" No results found for: "TSH", "T8PEINJ", "K3TJVOV", "THYROIDAB" Radiology reportsas per the Radiologist Radiology: Transesophageal echocardiogram (ENRIQUE) with contrast and 3D PRN Result Date: 08/09/2024 Left Ventricle: Left ventricle size is normal. Mildly increased wall thickness. Normal left ventricular systolic function. The EF by visual approximation is 60%. Normal wall motion. Right Ventricle: Right ventricle is mildly dilated. Catheter present in the right ventricle. Mildly reduced systolic function. Aortic Valve: Trileaflet. No cusp thickening. No cusp calcification. Mild (1+) regurgitation with multiple jets. Left Atrium: Normal appendage flow velocity. No left atrial appendage thrombus noted. No left atrial mass present. Interatrial Septum: PFO present with a left to right shunt viewable by color Doppler. Aorta: Normal sized aortic arch and descending aorta. Severely dilated sinuses of Valsalva. Sinuses of Valsalva diameter is 5.0 cm. Moderately dilated ascending aorta. Ao ascending diameter is 4.6 cm. Post-image: S/p valve sparing aortic root and ascending aorta replacement with 30 mm Cardioroot graft and 40 mm EMMA clip: No change in LV or RV function. Mild-moderate MV regurgitation. Normally functioning aortic valve without regurgitation; remeasured sinuses of Valsalva 3.6 cm. Thoracic aorta intact within ENRIQUE imaging limits, no dissection. Complete EMMA occlusion by clip. ECG 12 lead Atrial fibrillation Right bundle branch block Electronically Signed On 08-05-2024 11:18:11 EDT by Benjamin Haynes POCT glucose meter Result Date: 08/04/2024 Performed by: [facility], [address] [place] [address] CLIA ID: [id number] POCT glucose meter Result Date: 08/04/2024 Performed by: [employer] [place] [facility], [address] [place] [address] CLIA ID: [id number] POCT glucose meter Result Date: 08/04/2024 Performed by: [employer] [facility], [address] [place] [address] CLIA ID: [id number] XR chest 1 view Result Date: 08/04/2024 [facility]ICK[facility]IG[facility] 1960 [id number] Exam Date/Time: 08/04/2024 20:10 Procedure: XR CHEST 1 VIEW Ordering Provider: SOLANO RICHARD Reason For Exam: DYSPNEA INDICATION: Aneurysm of the ascending aorta without rupture. VIEWS: Chest portable-2 images COMPARISON: 08/04/2024 at 5:34 TIME: 08/04/2024 at 20:12 FINDINGS: A right IJ vascular catheter sheath remains with interval removal of the [place]-Brian catheter. The trachea is midline. The cardiac silhouette is enlarged. Median sternotomy wires are present. A left atrial appendage clamp is present. Bibasilar opacities are present with blunting of the costophrenic angles. 1. Bibasilar opacities which may reflect atelectasis and/or small pleural effusions. 2. Cardiomegaly. Report Dictated on Electronically Signed By: Keesha Seals MD Electronically Signed Date/Time: 08/04/2024 8:15 PM EDT POCT glucose meter Result Date: 08/04/2024 Performed by: [facility] [place] [facility], [address] [place] [address], [place] [address] CLIA ID: [id number] POCT glucose meter Result Date: 08/04/2024 Performed by: [facility] [place] [facility], [address] [place] [address], [place] [address] CLIA ID: [id number] POCT glucose meter Result Date: 08/04/2024 Performed by: [facility] [place] [facility], [address] [place] [address], [place] [address] CLIA ID: [id number] POCT glucose meter Result Date: 08/04/2024 Performed by: [employer] [place] [facility], [address] [place] [address], [place] [address] CLIA ID: [id number] POCT glucose meter Result Date: 08/04/2024 Performed by: [employer] [place] [facility], [address] [place] [address], [place] [address] CLIA ID: [id number] POCT glucose meter Result Date: 08/04/2024 Performed by: [employer] [place] [facility], [address] [place] [address], [place] [address] CLIA ID: [id number] POCT glucose meter Result Date: 08/04/2024 Performed by: [employer] [place] [facility], [address] [place] [address], [place] [address] CLIA ID: [id number] ECG 12 lead Ventricular-paced rhythm Electronically Signed On 08-04-2024 13:07:15 EDT by Michael Patricia POCT glucose meter Result Date: 08/04/2024 Performed by: [employer] [place] [facility], [address] [place] [address], [place] [address] CLIA ID: [id number] POCT glucose meter Result Date: 08/04/2024 Performed by: [employer] [place] [facility], [address] [place] [address], [place] [address] CLIA ID: [id number] ECG 12 lead Sinus rhythm or ectopic atrial rhythm with prolonged MT iintrerval Right bundle branch block Pericarditis Electronically Signed On 08-04-2024 12:48:47 EDT by Michael Coopero POCT glucose meter Result Date: 08/04/2024 Performed by: [facility], [address] [place] [address], [facility] [address] CLIA ID: [id number] POCT glucose meter Result Date: 08/04/2024 Performed by: [facility] [place] [facility], [address] [place] [address], [facility] [address] CLIA ID: [id number] POCT glucose meter Result Date: 08/04/2024 Performed by: [facility] [place] [facility], [address] [place] [address], [facility] [address] CLIA ID: [id number] ECG 12 lead Sinus rhythm Atrial premature complexes frequent Right bundle branch block Widespread ST elevation consistent with pericarditis Electronically Signed On 08-04-2024 08:47:13 EDT by Michael Harshad POCT glucose meter Result Date: 08/04/2024 Performed by: [employer] [facility], [address] [place] [address], [facility] [address] CLIA ID: [id number] XR chest 1 view Result Date: 08/04/2024 Patient Name: ERICKSON RIGGS : 1960 [id number] Exam Date/Time: 08/04/2024 05:32 Procedure: XR CHEST 1 VIEW Ordering Provider: NUNEZ KYLE Reason For Exam: Shortness of breath AP CHEST X-RAY CLINICAL INDICATION: Shortness of breath TECHNIQUE: AP portable x- ray of the chest. COMPARISON: August 03, 2024 FINDINGS: The study is limited due to patient rotation. Midline sternotomy wires are noted. Lines/Tubes: Right-sided [place]-Brian catheter is noted with distal tip level the main pulmonary artery. Endotracheal tube and nasogastric tubes have been removed. Mediastinal drain is noted. Heart/Mediastinum: Cardiac silhouette is enlarged. Left atrial appendage clip is noted. Lungs: Persistent left basilar opacity is again noted with blunting left costophrenic angle. Pulmonary vascular congestion is again noted similar to previous exam. Bones: Unremarkable Interval removal of endotracheal and nasogastric tubes. Otherwise no significant interval change Report Dictated on Electronically Signed By: Benjamin Bucio MD Electronically Signed Date/Time: 08/04/2024 8:04 AM EDT POCT glucose meter Result Date: 08/04/2024 Performed by: [facility] [place] [facility], [address] [place] [address], [place] [address] CLIA ID: [id number] POCT glucose meter Result Date: 08/04/2024 Performed by: [facility] [place] [facility], [address] [place] [address], [place] [address] CLIA ID: [id number] POCT glucose meter Result Date: 08/04/2024 Performed by: [facility] [place] [facility], [address] [place] [address], [place] [address] CLIA ID: [id number] POCT glucose meter Result Date: 08/04/2024 Performed by: [facility] [place] [facility], [address] [place] [address], [place] [address] CLIA ID: [id number] POCT glucose meter Result Date: 08/04/2024 Performed by: [facility] [place] [facility], [address] [place] [address], [place] [address] CLIA ID: [id number] POCT glucose meter Result Date: 08/04/2024 Performed by: [facility] [place] [facility], [address] [place] [address], [place] [address] CLIA ID: [id number] POCT glucose meter Result Date: 08/04/2024 Performed by: [facility] [place] [facility], [address] [place] [address], [place] [address] CLIA ID: [id number] POCT glucose meter Result Date: 08/04/2024 Performed by: [facility] [place] [facility], [address] [place] [address], [place] [address] CLIA ID: [id number] POCT glucose meter Result Date: 08/03/2024 Performed by: [facility] [place] [facility], [address] [place] [address], [place] [address] CLIA ID: [id number] POCT glucose meter Result Date: 08/03/2024 Performed by: [facility] [place] [facility], [address] [place] [address], [place] [address] CLIA ID: [id number] POCT glucose meter Result Date: 08/03/2024 Performed by: [facility] [place] [facility], [address] [place] [address], [place] [address] CLIA ID: [id number] POCT glucose meter Result Date: 08/03/2024 Performed by: [facility], [address] [place] [address] [place] [address] CLIA ID: [id number] POCT glucose meter Result Date: 08/03/2024 [facility]formed by: [facility], [address] [place] [address], [place] [address] CLIA ID: [id number] POCT glucose meter Result Date: 08/03/2024 Performed by: [facility], [address] [place] [address], [place] [address] CLIA ID: [id number] POCT glucose meter Result Date: 08/03/2024 Performed by: [facility], [address] [place] [address], [place] [address] CLIA ID: [id number] POCT glucose meter Result Date: 08/03/2024 Performed by: [facility], [address] [place] [address], [place] [address] CLIA ID: [id number] POCT glucose meter Result Date: 08/03/2024 Performed by: [facility], [address] [place] [address], [place] [address] CLIA ID: [id number] POCT glucose meter Result Date: 08/03/2024 Performed by: [facility], [address] [place] [address], [place] [address] CLIA ID: [id number] XR chest 1 view Result Date: 08/03/2024 Patient Name: ERICKSON RIGGS : 1960 [facility]#: [id number] Exam Date/Time: 08/03/2024 15:19 Procedure: XR CHEST 1 VIEW Ordering Provider: NUNEZ KYLE Reason For Exam: Post op open heart surgery; ETT placement PORTABLE CHEST X-RAY CLINICAL INDICATION: Status post open heart surgery, endotracheal tube placement A portable frontal view of the chest was obtained. COMPARISON: 08/03/2024 at 1455 FINDINGS: The heart is enlarged. Sternotomy wires and left atrial appendage clip are noted. Endotracheal tube appears to terminate approximately 4.5 cm above thecarina. Feeding tube terminates below the level of the diaphragm. The tip is not seen. Right jugular [place]-Brian catheter terminates in the expected location of the right pulmonary artery. Mediastinal drain is noted. There is pulmonary vascular congestion with left retrocardiac atelectasis and likelysmall left pleural effusion. No pneumothorax is seen. There are degenerative changes of the spine. Lines and tubes as above. Pulmonary vascular congestion. Small left pleural effusion. No evidence of pneumothorax. Report Dictated on Electronically Signed By: Aiden Chinchilla MD Electronically Signed Date/Time: 08/03/2024 3:55 PM EDT XR chest 1 view Result Date: 08/03/2024 Patient Name: ERICKSON RIGGS : 1960 Exam Date/Time: 08/03/2024 14:31 Procedure: XR CHEST 1 VIEW Ordering Provider: SOLANO RICHARD Reason For Exam: FOREIGN BODY; Confirm Needle Count AP CHEST X-RAY CLINICAL INDICATION: FOREIGN BODY;Confirm Needle Count TECHNIQUE: AP portable x-ray of the chest. COMPARISON: None FINDINGS: Intraoperative radiographs of the chest were obtained for incorrect instrument count. The patient has undergone open heart surgery with sternal wires and mediastinal drain. There is also a [place]-Brian catheter,ETT and NG tube. An atrial appendage clip is present. No radiopaque foreign body or instrument is id entified. The cardiomediastinal silhouette is enlarged. No evidence of a retained surgical instrument. Discussed with OR team at the time of exam completion. Report Dictated on Electronically Signed By: Adrian Alvarez MD Electronically Signed Date/Time: 08/03/2024 2:53 PM EDT History/Other: Past Medical History: Medical History[4] Past Surgical History: Surgical History[5] Allergy(ies): Allergies[6] Family History: Family History[7] Social History: Social History[8] Portions of the information within this encounter were entered using an electronic dictation system. Best attempts were made to edit/proofread the information prior to note completion. Despite the review of information, some errors may remain. If there are questions related to the information contained within the note please contact the signing physician directly. I spent 15 minutes with the pt which involved coordination of care, medical evaluation, review of records, and/or counseling of the pt regarding his/her condition/disease state/prognosis on the date of this note. [1] acetaminophen, 1,000 mg, Oral, q8h amiodarone, 400 mg, Oral, BID amLODIPine, 5 mg, Oral, Daily [Held by provider] apixaban, 5 mg, Oral, BID asenapine, 5 mg, SubLINGual, Nightly bumetanide, 2 mg, IntraVENous, BID doxazosin, 2 mg, Oral, Daily guaiFENesin, 600 mg, Oral, BID insulin glargine, 25 Units, SubCUTAneous, q AM insulin lispro, 0-6 Units, SubCUTAneous, TID WC Lidocaine, 1 patch, Topical, Daily Lidocaine, 1 patch, TransDERmal, Daily metoprolol succinate XL, 100 mg, Oral, Daily pantoprazole, 40 mg, Oral, qAM AC polyethylene glycol (PEG) 3350, 17 g, Oral, Daily potassium chloride CR, 40 mEq, Oral, Daily senna-docusate sodium, 2 tablet, Oral, Nightly [2] [3] PRN medications: calcium gluconate, dextrose, dextrose, glucagon (rDNA), glucose, ipratropium-albuterol, magnesium hydroxide, magnesium sulfate OR magnesium sulfate, melatonin, naloxone, ondansetron ODT OR ondansetron, oxyCODONE OR oxyCODONE, potassium chloride OR potassium chloride OR potassium chloride, potassium chloride CR [4] Past Medical History: Diagnosis Date Alcohol abuse Aneurysm (HCC) Atrial fibrillation (HCC) Chronic bronchitis (HCC) CVA (cerebral vascular accident) (HCC) about 14 years ago per pt GERD (gastroesophageal reflux disease) Hypertension Nicotine abuse SONIA (obstructive sleep apnea) does not use cpap Paroxysmal supraventricular tachycardia (HCC) Shortness of breath [5] Past Surgical History: Procedure Laterality Date CARDIAC CATHETERIZATION N/A 06/08/2024 Performed by Joe Timmons MD at [facility] Cardiac Cath/EP Lab CHOLECYSTECTOMY 2015 KIDNEY STONE SURGERY LUMBAR DISCECTOMY NEPHRECTOMY Right 1998 [6] Allergies Allergen Reactions Penicillins Hives Other Reaction(s): GI upset, hives Hives or GI upset-patient unsure Aspirin Hives Other Reaction(s): GI Upset, GI upset, hives [7] Family History Problem Relation Name Age of Onset Coronary artery disease Mother Heart attack Mother Coronary artery disease Father Heart attack Father [8] Social History Tobacco Use Smoking status: Former Average packs/day: 1 pack/day for 18.0 years (18.0 ttl pk-yrs) Types: Cigarettes Start date: 2004 Smokeless tobacco: Never Vaping Use Vaping status: Never Used Substance Use Topics Alcohol use: Not Currently Comment: holidays/special occasions Drug use: Yes Frequency: 14.0 times per week Types: Marijuana Comment: smoking Cosigned by Cassidy Hewitt MD at 08/15/2024 7:42 PM EDT Associated attestation - Cassidy Hewitt MD - 08/15/2024 7:42 PM EDT I independently performed a history and physical examination of the patient. I have reviewed the patient's chart including pertinent history, medications, labs, radiology, consult/progress notes, andother reports. I reviewed the resident/ENMA's note, agree with the documented findings and plan of care (with modifications noted if any), and discussed the management plan. Pt was sitting up in the recliner. Sitter was in the room. He was questioning the diagnosis of diabetes. He was very confused regarding the treatment plan that was presented. He was also concerned that different providers may be giving him conflicting treatments. I had to reassure the patient and explain our best intentions for him. Patient states that he has not been able to sleep. He states that the CPAP is not effective. He spent 4 hours last night in prayer talking to Yahjaz. Patient currently on a clear liquid diet. Initiated by GI service for evaluation of hematochezia. No further episodes. Patient refused further testing including colonoscopy. They signed off. Patient's glucose levels have been mostly well-controlled - 90s to low 100s. He denies any nausea or vomiting. He also states that he remembers diabetes education and is very comfortable with insulin injections. He is agreeable to doing a refresher. Adult diet Clear liquid; 5 carb choices (75 gm/meal) Estimated Creatinine Clearance: 87.9 mL/min (A) (by C-G formula based on SCr of 1.28 mg/dL (H)). BP 128/53 Pulse 78 Temp 36.4 C (97.5 F) (Temporal) Resp 19 Ht 6' (1.829 m) Wt (!) 337 lb 4.9 oz (153 kg) SpO2 98% PF 57 L/min BMI 45.75 kg/m Obese, awake, alert, not in distress, RR, chest incision intact, good pulses, clear breath sounds, no rales, +chest tubes, abdomen soft, non-tender, no masses, no edema, +compression stockings, no focal deficits, normal mood and affect. Dx: Type 2 diabetes, newly diagnosed Aortic aneurysm status post valve sparing aortic root and ascending aorta replacement on 08/03/2024 Cardiomyopathy History of ischemic stroke History of nephrectomy Obesity Body mass index is 45.75 kg/m . Delirium Plan: -will reduce Lantus to 22 units daily -Adjust Humalog to mod dose SS -Will start scheduled Humalog once patient is eating set meals -Reinforce insulin injections using insulin pen in the hospital -continue blood glucose monitoring -discussed postop hyperglycemia management and goals of therapy -Consider discharge on basal insulin and metformin -Will need to purchase glucose testing supplies [id number] -Can consider other agents in the future once patient has Rx coverage -FU outpt with PCP Total time 25 minutes which include review of records, counseling, management, and coordination of care as documented in note. * Keesha Jessica APRN - NICOLE - 08/14/2024 7:39 AM EDT Images from the original note were not included. Cardiothoracic Surgery/[facility] Progress Note PATIENT NAME: Erickson Riggs DATE: 08/14/24 HPI: 64 yo male with PMH of HTN, aortic aneurysm, afib, cardiomyopathy, SONIA, former tobacco use, marijuana use, and solitary kidney. Pt follows with Cardiology who ordered an annual CTA chest which was completed on 04/26/24 and showed ascending thoracic aorta measures up to 5.2 cm. Previous CTA chest completed on 04/03/23 showed dilated ascending aorta measuring 4.7 cm. He was referred to Dr. Solano as an OP. He admits to being sedentary most of the time, washing dishes wears him out. Surgery/Procedure: 08/03/24: s/p valve sparing aortic root and ascending aorta replacement with 30mm Cardioroot graft, Left atrial appendage exlusion with 40mm Atriclip, ENRIQUE with Dr. Solano Interval History: 08/14/24, POD# 11: continues to have intermittent ST when ambulation and returns to NSR rate 70-80swhen resting. Had 1 episode Afib yesterday, reverted to NSR with rest. On 4L NC. Iyer replaced yesterday for retention. Review of Systems Constitutional: Positive for activity change. Negative for appetite change, diaphoresis, fatigue and fever. Respiratory: Positive for shortness of breath. Negative for cough and wheezing. Cardiovascular: Positive for leg swelling. Negative for chest pain and palpitations. Gastrointestinal: Negative for abdominal distention, abdominal pain, nausea and vomiting. Skin: Negative for color change, pallor and rash. Objective: UO: 4,556 Last BM Date: 08/13/24 Vitals: BP: 127/73, MAP (mmHg): 87, BP Method: Automatic Heart Rate: (!) 125 Resp: 18 Temp: 36.7 C (98 F), Temp Source: Temporal BMI (Calculated): 44.34 CXR: BMP: Recent Labs 08/12/24 0449 08/12/24 1439 08/13/24 0133 08/13/24 1229 08/14/24 0041 NA -- < > 142 141 141 K -- < > 3.6 3.7 3.4* CL -- < > 95* 94* 94* CO2 -- < > 34* 33* 34* BUN -- < > 39* 39* 35* CREATININE -- < > 1.20 1.32* 1.26* CALCIUM -- < > 9.5 9.6 9.0 MG 2.1 -- 2.0 -- 1.9 < > = values in this interval not displayed. CBC: Recent Labs 08/12/24 0449 08/13/24 0133 08/14/24 0041 WBC 12.5* 13.3* 11.4* HGB 11.0* 11.2* 10.7* HCT 34.6* 35.4* 32.8* PLT 224 219 206 MCV 92.0 90.8 89.4 RDW 14.6 14.7 14.3 INR: No results for input(s): "INR" in the last 72 hours. Physical Exam Constitutional: Interventions: Nasal cannula in place. Cardiovascular: Rate and Rhythm: Normal rate and regular rhythm. Pulses: Normal pulses. Heart sounds: No murmur heard. Pulmonary: Effort: Pulmonary effort is normal. No respiratory distress. Breath sounds: Decreased breath sounds present. No wheezing, rhonchi or rales. Abdominal: General: There is distension. Palpations: Abdomen is soft. Tenderness: There is no abdominal tenderness. Musculoskeletal: General: Swelling present. Right lower le+ Edema present. Left lower le+ Edema present. Skin: General: Skin is warm and dry. Comments: Surgical incisions well approximated, no redness, warmth or drainage. Neurological: General: No focal deficit present. Mental Status: He is alert. Psychiatric: Mood and Affect: Mood normal. Judgment: Judgment is impulsive. Assessment: Aortic aneurysm s/p valve sparing aortic root replacement Cardiomyopathy HTN SONIA S/p nephrectomy d/t tumor Former smoker Marijuana smoker Hx ischemic stroke Post operative Pulm Management: Normal Post-operative Course Post-operative Atrial Fibrillation: [x]Yes [] No Acute blood loss anemia/consumptive thrombocytopenia Plan: Patient status: ICU Medications: BB- Metoprolol succinate 100mg Amio 400mg PO BID Eliquis d/t intermittent Afib - held d/t hematochezia Bumex 2mg IV - decreased to BID Asenapine HS for sleep Home meds: Cardura, Amlodipine (10mg home dose) Bowel regimen: senna, miralax GI prophy: PO protonix DVT prophy:TEDs, SCDs, and Patient on OAC/NOAC Interventions: Encourage ambulation, progressive mobility Wean O2 to SpO2 > 88% Pulmonary hygiene: IS and Acapella Consults: Endocrine following for insulin needs Consult Urology for urinary retention (per patient had issues with this previously) Consult GI d/t hematochezia in setting of OAC PT/OT: PT: Continue to assess pending progress (LTACH vs. SNF depending on progress and medical needs) OT: LTACH (LTACH- Pending approval of OTR/L d/t change in REC from IPR.) TCC/Discharge Planning TBD- possible SSH at d/c Central Line: []Yes [x] No Arterial Line: []Yes [x] No Iyer: []Yes [x] No Restraints: []Yes [x] No Patient discussed and plan of day developed from multidisciplinary rounds between Cardiothoracic Surgery (Cardiothoracic Surgeon, ENMA) and Critical Care Attending Critical Care time spent 28 minutes. The time involved in the performance of this care was exclusive of separately billable procedures, teaching time and treating other patients. The time was spent personally by myself for the following activities: examination of the patient, ordering and/or performing treatment, reviewing the laboratory and radiographic studies, and if applicable, ventilator management and blood gas interpretation. Cardiac Core Medications: Not indicated due to type of surgery EF: 74% (07/04/24) Blood Conservation: None noted in post-operative period Re Recording Mixer: Dr. Bragg Cosigned by Bienvenido Rodriguez MD at 08/14/2024 4:22 PM EDT Associated attestation - Bienvenido Rodriguez MD - 08/14/2024 4:22 PM EDT I have personally seen the patient and examined along with the ENMA/resident team. I personally obtained the velarde and relevent portions of the history and performed physical exam. I reviewed the chart including MAR , labs and radiology and discussed the patient's plan of action with the resident/ENMA.This note reflects my plan of care as I have edited the note to reflect my findings and my assessment and plan. Date of service: 08/14/24 Discussed with: []Residents [x]Patient/Family [x]RN [x]Consultants []SW/TCC []Other [x]ENMA Personally Reviewed: [x]Epic notes [x]Radiology studies [x]Labs []EKG []Other In addition to resident/ENMA documentation pertinent History, ROS, and/or Physical Exam findings include: No acute events overnight. Mentation has been good past two days, but this morning has confusion/delirium similar to early this week. No medication changes. No reports of lack of sleep over pasttwo nights. Patient rolled out of bed earlier today. States he thought he was being cleaned and rolled on his side. The side rail broke and patient fell to floor. He was placed back in bed. CT head, C spine, CXR and pelvis Xray without traumatic injuries. Assessment: -Ascending aortic aneurysm s/p reapir -Valve sparing Aortic root replacement -ICU delirium -SONIA/OHS -pAF -Remote right nephrectomy -CKD -Acute urinary retention s/p iyer -Hematochezia Plan: -Continue pulmonary hygiene measures, IS, acapella -Resume nocturnal precedex -Encourage nightly PAP use -Check urinalysis -Imaging negative for acute traumatic injury -Continue BID diuresis -Hold AC -GI consulted for LGIB -Continue raul bowel regimen -Maintain iyer, urology following -Family updated at bedside -Remainder as per ENMA documentation Excluding procedures, the total critical care time invested in the care of this patient with life threatening/unstable organ failure today is at least 35 minutes. This includes direct patient contact, review of medical record, management of life support systems, review of data including imaging andlabs, discussions with other team members, patient's family and physicians. * Micah Wilcox RCP - 08/14/2024 7:28 AM EDT [facility] Respiratory Care Department Progress Note As part of the Respiratory Assessment Program (RAP), the following Respiratory Therapist evaluationhas been completed, including a chart review and clinical/physical assessment. Respiratory Therapist RAP Evaluation Guideline Points 0 1 2 3 4 Points Strongly Consider History Factor No Pulmonary conditions Stable Pulmonary condition(s) Surgery or Intervention that may impact Pulmonary system (at risk) Surgery or Intervention that is impacting Pulmonary system Active Exacerbation of Pulmonary Condition 1 Respiratory Pattern Regular, RR= 12-18 [place] or Increased RR= 19-24 Irregular, or RR= 25-30 SOB, talk in short sentences, or RR= 31-35 Severe SOB, accessory muscle use, one word answers, or RR>35 0 Aerosol Med(s), High Flow O2 Breath Sounds Clear Diminished in 1 lobe Diminished in <= 2 lobes Adventitious breath sounds Coarse crackles, Wheezes, or Diminished in >2 lobes 1 Aerosol Med(s), Bronchial Hygiene, Hyperinflation Cough & Sputum Strong cough, no secretion retention or production Weak cough, no secretion retention or production Weak cough, w/ production (less often than Q2hr), or secretion retention No cough, w/ secretion retention or production (less often than Q2hr) Significant secretion production (more often than Q2hr) or mucus plug 0 Aerosol Med(s), Bronchial Hygiene, Hyperinflation Level of Activity Ambulatory Ambulatory with Assist Up in chair or edge of bed (dangle) Non-ambulatory, bedridden with active ROM Completely paralyzed or without active ROM 1 Triage 5 0-2 Triage 4 3-5 Triage 3 6-10 Triage 2 11-14 Triage 1 >=15 Total 3 Triage Score = 4 TRIAGE SCORING - SUGGESTED FREQUENCIES Aerosol Therapy Bronchial Hygiene Hyperinflation Triage Score Q4h & PRN 1 Q4hWA (QID) & PRN 2 TID & PRN 3 BID & PRN 4 PRN 5 Therapy(s) Indicated Yes/No Aerosol Medication Hyperinflation Bronchial Hygiene High Flow Oxygen Flow Rates PEF (L/Sec) IVC FVC FEV1 FEV1/FVC Patient instructed and returned demonstration on use of MDI (with spacer, as appropriate) RT to enter/modify frequency of treatment order in EMR/EHR to match this RAP evaluation. Based on this RAP evaluation the following therapy is being initiated: At the following frequency: PRN Comments: Thank you for involving Respiratory in the care of this patient, * Juan Bowling APRN - PLUMBING MANAGER - 08/14/2024 5:58 AM EDT Department of Internal Medicine Division of Endocrinology, Diabetes, & Metabolism Endocrinology Note Patient Name: Erickson Riggs : 1960 AGE: 64 y.o. Room/Bed: T1-118/T1-118 A Admission Date: 08/03/2024 Visit Date: 08/14/2024 Reason for Endocrine Consult: post heart Provider/Team Requesting Consult: cts PCP: [facility] [employer] Supervisor: No ASSESSMENT: New onset DM2 with hyperglycemia without correction insulin, A1c 7.4% Aortic root replacement on 08-03-24 HTN HLD Morbid obesity Body mass index is 45.16 kg/m . Alcohol and nicotine use PLAN: Lantus 30 units QAM--> 25 units QAM Humalog 8 tidac --> 6 tidac (hold if NPO/no mealtime intake) w/ br today; afternoon BG w/ the same 107 --> DC scheduled prandial insulin re: improving trends. Humalog 0-6 tidac SSI; continue *Continue to taper insulin as able based on trends -S/p IP DSME/insulin teaching 08/04/2024. Will be reinforced w/ bedside RN w/ use of kiwkpens on the floor after change in orders this AM ICU goal <180 GMF goal <150 POCT BG ACHS Hypoglycemia management per protocol Carb controlled diet ANTICIPATED ENDOCRINE HOME GOING RECOMMENDATIONS: Optimized for Discharge from Endocrine standpoint: No Home Going Endocrine Rx Recommendations-- Per Meds to beds has no prescription drug coverage Consider metformin and OTC Relion insulin (if insulin requirements still present upon homegoing) OP patient assistance program consideration/application if insulin need to be continued Could benefit from sglt2 vs glp1 -although high self pay cost Glucometer, lancets, test trips, alcohol pads needed on DC Outpt Follow Up-- Offered OP Endo follow up; pt declined 08/13/2024 Prefers to follow w/ PCP SUBJECTIVE/HPI: 64 yo male with PMH of HTN, aortic aneurysm, afib, cardiomyopathy, SONIA, former tobacco use, marijuana use, and solitary kidney. Pt follows with Cardiology who ordered an annual CTA chest which was completed on 04/26/24 and showed ascending thoracic aorta measures up to 5.2 cm. Previous CTA chest completed on 1/5/24 showed dilated ascending aorta measuring 4.7 cm. 08/03/2024 underwent valve sparing aortic root and ascending aorta replacement, EMMA exclusion. S/p aortic root repair A1c elevated, did not see any hx of dm2 or diabetes meds in chart review New onset DM2, states family history mother has DM2 he knows a little bit about diabetes Discussed A1c 08/14/2024 POC reviewed w/ pt and RN Pt reports he feels comfortable w/ self admin of insulin as taught via DM educator previously this admission Will change to kwikpens supply to the floor to assist w/ self admin/teaching w/ RN supervision to reinforce the same in case of continuation on homegoing. BG trends remain well controlled over the last 24 hours w/ MDI use AM glucose per labs: 96. 118 per OT Humalog reduced from 10 to 8 tidac yesterday and AM lantus continued w/o changes to SSI Tachycardic- just returned from ambulating to the bathroom Good intake continues. 08/13/2024 New onset DM2; identified to have A1c of 7.4% in June 2024 during preadmission testing Has not yet had any diabetic education Has not been started on medication in the outpatient setting yet for diabetes control He does endorse familiarity with the diagnosis as his mother has history of diabetes Complication History HTN: Endorses HLD: Endorses Renal: Endorses- Solitary Kidney (Nephrectomy 1998) Cardiac: Endorses-Afib, Aoric Aneurysm, Cardiomyopathy CVA: Endorses- CVA (02/2011) SONIA: Endorses- no use of CPAP currently Gastroparesis: Denies H/o Pancreatitis: Denies Impaired Wound Healing: Denies Amputation: Denies Metabolic Dysfunction Associated Steatotic Liver Disease: Endorses Hypoglycemic Unawareness: Denies 08/12 Improving trends with current doses, bgl below Continue current doses Had PT this morning Awake, sitting up Denies N/V/D abd pain Diet: Eating well, had BF and lunch so far today 08/11 Increasing trends, bgl below Will increase insulins today On PAP during visit (using at night and during naps) Awake, sitting up in bed, able to talk Denies N/V/D abd pain Chest tube removed States his diet is improving but still 1/2 of what he normally eats 08/10 Bgl below- remain stable-slightly tightly controlled lower insulins for today He is awake, takative but confused On oxygen -hi [place] Is eating pretty well No nv noted Spoke with nursing team in room No dc yet Type of DM: 2 Onset of DM: 07/27/2024 per PAT A1c testin.4% Home DM Medication Regimen: Untreated DM control (last A1c/glucose data): Glucose Date/Time Value Ref Range Status 08/13/2024 09:12 PM 100 70 - 100 mg/dL Final 08/13/2024 05:11 PM 127 (H) 70 - 100 mg/dL Final 08/13/2024 11:54 AM 121 (H) 70 - 100 mg/dL Final 08/13/2024 08:50 AM 126 (H) 70 - 100 mg/dL Final 08/12/2024 09:23 PM 100 70 - 100 mg/dL Final 08/12/2024 05:19 PM 121 (H) 70 - 100 mg/dL Final Lab Results Component Value Date HGBA1C 7.4 (H) 07/27/2024 Review of Systems Gastrointestinal: Negative for nausea and vomiting. ROS negative except for those mentioned in HPI. OBJECTIVE: Vitals: 08/14/24 0100 08/14/24 0200 08/14/24 0300 08/14/24 0400 BP: 114/67 119/62 124/73 139/83 BP Location: Right arm Patient Position: Lying Pulse: 76 75 84 (!) 124 Resp: 18 Temp: 36.7 C (98 F) TempSrc: Temporal SpO2: 92% 94% 93% 92% Weight: Height: PF: Physical Exam Vitals reviewed. Constitutional: Appearance: Normal appearance. He is obese. He is ill-appearing. HENT: Head: Normocephalic. Cardiovascular: Rate and Rhythm: Tachycardia present. Comments: 132 bpm Pulmonary: Effort: Pulmonary effort is normal. No respiratory distress. Comments: O2 via NC Neurological: Mental Status: He is alert. Mental status is at baseline. Psychiatric: Mood and Affect: Mood normal. Judgment: Judgment normal. 24 hour intake/output: Intake/Output Summary (Last 24 hours) at 08/14/2024 0558 Last data filed at 08/14/2024 0558 Gross per 24 hour Intake 1650 ml Output 4556 ml Net -2906 ml Diet: Adult diet Regular; 5 carb choices (75 gm/meal) Medications (as per EMR): HomeMeds: Current Outpatient Medications Medication Instructions amLODIPine (NORVASC) 10 mg, Daily doxazosin (Cardura) 2 MG tablet 1 tablet, Nightly metoprolol tartrate (LOPRESSOR) 25 mg, 2 times daily Scheduled Meds:Scheduled Meds[1] Continuous Infusions:Continuous Meds[2] PRN Meds:PRN Meds[3] Diagnostic Workup: I reviewed pertinent Laboratory results, Radiographic results, and Other Clinical Notes at the timeof today's encounter. Labs: No components found for: "LABA1C" No components found for: "EAG" Lab Results Component Value Date NA 141 08/14/2024 K 3.4 (L) 08/14/2024 CL 94 (L) 08/14/2024 CO2 34 (H) 08/14/2024 BUN 35 (H) 08/14/2024 CREATININE 1.26 (H) 08/14/2024 GLUCOSE 96 08/14/2024 CALCIUM 9.0 08/14/2024 No results found for: "CHLPL", "CHOL" No results found for: "TRIG" No results found for: "HDL" No results found for: "LDLCALC" No results found for: "VLDL" No results found for: "CHOLHDLRATIO" No results found for: "[id number]" No results found for: "TSH", "Y7SOMQG", "D8SGOTW", "THYROIDAB" Radiology reportsas per the Radiologist Radiology: Transesophageal echocardiogram (ENRIQUE) with contrast and 3D PRN Result Date: 08/09/2024 Left Ventricle: Left ventricle size is normal. Mildly increased wall thickness. Normal left ventricular systolic function. The EF by visual approximation is 60%. Normal wall motion. Right Ventricle: Right ventricle is mildly dilated. Catheter present in the right ventricle. Mildly reduced systolic function. Aortic Valve: Trileaflet. No cusp thickening. No cusp calcification. Mild (1+) regurgitation with multiple jets. Left Atrium: Normal appendage flow velocity. No left atrial appendage thrombus noted. No left atrial mass present. Interatrial Septum: PFO present with a left to right shunt viewable by color Doppler. Aorta: Normal sized aortic arch and descending aorta. Severely dilated sinuses of Valsalva. Sinuses of Valsalva diameter is 5.0 cm. Moderately dilated ascending aorta. Ao ascending diameter is 4.6 cm. Post-image: S/p valve sparing aortic root and ascending aorta replacement with 30 mm Cardioroot graft and 40 mm EMMA clip: No change in LV or RV function. Mild-moderate MV regurgitation. Normally functioning aortic valve without regurgitation; remeasured sinuses of Valsalva 3.6 cm. Thoracic aorta intact within ENRIQUE imaging limits, no dissection. Complete EMMA occlusion by clip. ECG 12 lead Atrial fibrillation Right bundle branch block Electronically Signed On 08-05-2024 11:18:11 EDT by Benjamin Haynes POCT glucose meter Result Date: 08/04/2024 Performed by: [facility], [address] [place] [address], Formerly [facility] [id number] CLIA ID: [id number] POCT glucose meter Result Date: 08/04/2024 Performed by: [facility] [place] [facility], [address] [place] [address], [place] [address] CLIA ID: [id number] POCT glucose meter Result Date: 08/04/2024 Performed by: [employer] [facility], [address] [place] [address], Formerly [facility] [address] CLIA ID: [id number] XR chest 1 view Result Date: 08/04/2024 Patient Name: ERICKSON RIGGS : 1960 [facility]#: [id number] Exam Date/Time: 08/04/2024 20:10 Procedure: XR CHEST 1 VIEW Ordering Provider: SOLANO RICHARD Reason For Exam: DYSPNEA INDICATION: Aneurysm of the ascending aorta without rupture. VIEWS: Chest portable-2 images COMPARISON: 08/04/2024 at 5:34 TIME: 08/04/2024 at 20:12 FINDINGS: A right IJ vascular catheter sheath remains with interval removal of the [place]-Brian catheter. The trachea is midline. The cardiac silhouette is enlarged. Median sternotomy wires are present. A left atrial appendage clamp is present. Bibasilar opacities are present with blunting of the costophrenic angles. 1. Bibasilar opacities which may reflect atelectasis and/or small pleural effusions. 2. Cardiomegaly. Report Dictated on Electronically Signed By: Keesha Seals MD Electronically Signed Date/Time: 08/04/2024 8:15 PM EDT POCT glucose meter Result Date: 08/04/2024 Performed by: [facility] [place] [facility], [address] [place] [address], [place] [address] CLIA ID: [id number] POCT glucose meter Result Date: 08/04/2024 Performed by: [facility] [place] [facility], [address] [place] [address], [place] [address] CLIA ID: [id number] POCT glucose meter Result Date: 08/04/2024 Performed by: [facility] [place] [facility], [address] [place] [address], [place] [address] CLIA ID: [id number] POCT glucose meter Result Date: 08/04/2024 Performed by: [facility] [place] [facility], [address] [place] [address], [place] [address] CLIA ID: [id number] POCT glucose meter Result Date: 08/04/2024 Performed by: [facility] [place] [facility], [address] [place] [address], [place] [address] CLIA ID: [id number] POCT glucose meter Result Date: 08/04/2024 Performed by: [facility] [place] [facility], [address] [place] [address], [place] [address] CLIA ID: [id number] POCT glucose meter Result Date: 08/04/2024 Performed by: [employer] [place] [facility], [address] [place] [address], [place] [address] CLIA ID: [id number] ECG 12 lead Ventricular-paced rhythm Electronically Signed On 08-04-2024 13:07:15 EDT by Michael Patricia POCT glucose meter Result Date: 08/04/2024 Performed by: [employer] [place] [facility], [address] [place] [address], [place] [address] CLIA ID: [id number] POCT glucose meter Result Date: 08/04/2024 Performed by: [employer] [place] [facility], [address] [place] [address], [place] [address] CLIA ID: [id number] ECG 12 lead Sinus rhythm or ectopic atrial rhythm with prolonged MT iintrerval Right bundle branch block Pericarditis Electronically Signed On 08-04-2024 12:48:47 EDT by Michael Patricia POCT glucose meter Result Date: 08/04/2024 Performed by: [facility] [place] [facility], [address] [place] [address] CLIA ID: [id number] POCT glucose meter Result Date: 08/04/2024 Performed by: [employer] [place] [facility], [address] [place] [address] CLIA ID: [id number] POCT glucose meter Result Date: 08/04/2024 [facility]formed [facility]: [facility], [address] [place] [address] CLIA ID: [id number] ECG 12 lead Sinus rhythm Atrial premature complexes frequent Right bundle branch block Widespread ST elevation consistent with pericarditis Electronically Signed On 08-04-2024 08:47:13 EDT by Michael Patricia POCT glucose meter Result Date: 08/04/2024 Performed by: [employer] [facility], [address] [place] [address] CLIA ID: [id number] XR chest 1 view Result Date: 08/04/2024 [facility] 1960 [id number] Exam Date/Time: 08/04/2024 05:32 Procedure: XR CHEST 1 VIEW Ordering Provider: NUNEZ KYLE Reason For Exam: Shortness of breath AP CHEST X-RAY CLINICAL INDICATION: Shortness of breath TECHNIQUE: AP portable x- ray of the chest. COMPARISON: August 03, 2024 FINDINGS: The study is limited due to patient rotation. Midline sternotomy wires are noted. Lines/Tubes: Right-sided [place]-Brian catheter is noted with distal tip level the main pulmonary artery. Endotracheal tube and nasogastric tubes have been removed. Mediastinal drain is noted. Heart/Mediastinum: Cardiac silhouette is enlarged. Left atrial appendage clip is noted. Lungs: Persistent left basilar opacity is again noted with blunting left costophrenic angle. Pulmonary vascular congestion is again noted similar to previous exam. Bones: Unremarkable Interval removal of endotracheal and nasogastric tubes. Otherwise no significant interval change Report Dictated on Electronically Signed By: Benjamin Bucio MD Electronically Signed Date/Time: 08/04/2024 8:04 AM EDT POCT glucose meter Result Date: 08/04/2024 Performed by: [facility] [place] [facility], [address] [place] [address], [place] [address] CLIA ID: [id number] POCT glucose meter Result Date: 08/04/2024 Performed by: [facility] [place] [facility], [address] [place] [address], [place] [address] CLIA ID: [id number] POCT glucose meter Result Date: 08/04/2024 Performed by: [facility] [place] [facility], [address] [place] [address], [place] [address] CLIA ID: [id number] POCT glucose meter Result Date: 08/04/2024 Performed by: [facility] [place] [facility], [address] [place] [address], [place] [address] CLIA ID: [id number] POCT glucose meter Result Date: 08/04/2024 Performed by: [facility] [place] [facility], [address] [place] [address], [place] [address] CLIA ID: [id number] POCT glucose meter Result Date: 08/04/2024 Performed by: [facility] [place] [facility], [address] [place] [address], [place] [address] CLIA ID: [id number] POCT glucose meter Result Date: 08/04/2024 Performed by: [facility] [place] [facility], [address] [place] [address], [place] [address] CLIA ID: [id number] POCT glucose meter Result Date: 08/04/2024 Performed by: [facility] [place] [facility], [address] [place] [address], [place] [address] CLIA ID: [id number] POCT glucose meter Result Date: 08/03/2024 Performed by: [facility] [place] [facility], [address] [place] [address], [place] [address] CLIA ID: [id number] POCT glucose meter Result Date: 08/03/2024 Performed by: [facility] [place] [facility], [address] [place] [address], [place] [address] CLIA ID: [id number] POCT glucose meter Result Date: 08/03/2024 Performed by: [facility] [place] [facility], [address] [place] [address], [place] [address] CLIA ID: [id number] POCT glucose meter Result Date: 08/03/2024 Performed by: [facility] [place] [facility], [address] [place] [address], [place] [address] CLIA ID: [id number] POCT glucose meter Result Date: 08/03/2024 Performed by: [facility] [place] [facility], [address] [place] [address], [place] [address] CLIA ID: [id number] POCT glucose meter Result Date: 08/03/2024 Performed by: [facility] [place] [facility], [address] [place] [address], [place] [address] CLIA ID: [id number] POCT glucose meter Result Date: 08/03/2024 Performed by: [facility] [place] [facility], [address] [place] [address], [place] [address] CLIA ID: [id number] POCT glucose meter Result Date: 08/03/2024 Performed by: [facility], [address] [place] [address], [place] [address] CLIA ID: [id number] POCT glucose meter Result Date: 08/03/2024 Performed by: [facility] [place] [facility], [address] [place] [address], [place] [address] CLIA ID: [id number] POCT glucose meter Result Date: 08/03/2024 Performed by: [facility] [place] [facility], [address] [place] [address], [place] [address] CLIA ID: [id number] XR chest 1 view Result Date: 08/03/2024 Patient Name: ERICKSON RIGGS : 1960 [facility]#: [id number] Exam Date/Time: 08/03/2024 15:19 Procedure: XR CHEST 1 VIEW Ordering Provider: NUNEZ KYLE Reason For Exam: Post op open heart surgery; ETT placement PORTABLE CHEST X-RAY CLINICAL INDICATION: Status post open heart surgery, endotracheal tube placement A portable frontal view of the chest was obtained. COMPARISON: 08/03/2024 at 1455 FINDINGS: The heart is enlarged. Sternotomy wires and left atrial appendage clip are noted. Endotracheal tube appears to terminate approximately 4.5 cm above thecarina. Feeding tube terminates below the level of the diaphragm. The tip is not seen. Right jugular [place]-Brian catheter terminates in the expected location of the right pulmonary artery. Mediastinal drain is noted. There is pulmonary vascular congestion with left retrocardiac atelectasis and likelysmall left pleural effusion. No pneumothorax is seen. There are degenerative changes of the spine. Lines and tubes as above. Pulmonary vascular congestion. Small left pleural effusion. No evidence of pneumothorax. Report Dictated on Electronically Signed By: Aiden Chinchilla MD Electronically Signed Date/Time: 08/03/2024 3:55 PM EDT XR chest 1 view Result Date: 08/03/2024 [facility] 1960 [id number] Exam Date/Time: 08/03/2024 14:31 Procedure: XR CHEST 1 VIEW Ordering Provider: SOLANO RICHARD Reason For Exam: FOREIGN BODY; Confirm Needle Count AP CHEST X-RAY CLINICAL INDICATION: FOREIGN BODY;Confirm Needle Count TECHNIQUE: AP portable x-ray of the chest. COMPARISON: None FINDINGS: Intraoperative radiographs of the chest were obtained for incorrect instrument count. The patient has undergone open heart surgery with sternal wires and mediastinal drain. There is also a [place]-Brian catheter,ETT and NG tube. An atrial appendage clip is present. No radiopaque foreign body or instrument is id entified. The cardiomediastinal silhouette is enlarged. No evidence of a retained surgical instrument. Discussed with OR team at the time of exam completion. Report Dictated on Electronically Signed By: Adrian Alvarez MD Electronically Signed Date/Time: 08/03/2024 2:53 PM EDT History/Other: Past Medical History: Medical History[4] Past Surgical History: Surgical History[5] Allergy(ies): Allergies[6] Family History: Family History[7] Social History: Social History[8] Portions of the information within this encounter were entered using an electronic dictation system. Best attempts were made to edit/proofread the information prior to note completion. Despite the review of information, some errors may remain. If there are questions related to the information contained within the note please contact the signing physician directly. I spent 35 minutes with the pt which involved coordination of care, medical evaluation, review of records, and/or counseling of the pt regarding his/her condition/disease state/prognosis on the date of this note. [1] acetaminophen, 1,000 mg, Oral, q8h amiodarone, 150 mg, IntraVENous, Once amiodarone, 400 mg, Oral, BID amLODIPine, 5 mg, Oral, Daily [Held by provider] apixaban, 5 mg, Oral, BID asenapine, 5 mg, SubLINGual, Nightly bumetanide, 2 mg, IntraVENous, TID doxazosin, 2 mg, Oral, Daily guaiFENesin, 600 mg, Oral, BID insulin glargine, 30 Units, SubCUTAneous, q24h insulin lispro, 0-6 Units, SubCUTAneous, TID WC insulin lispro, 8 Units, SubCUTAneous, TID WC ipratropium-albuterol, 3 mL, Nebulization, TID Lidocaine, 1 patch, Topical, Daily Lidocaine, 1 patch, TransDERmal, Daily metoprolol succinate XL, 100 mg, Oral, Daily pantoprazole, 40 mg, Oral, qAM AC polyethylene glycol (PEG) 3350, 17 g, Oral, Daily potassium chloride CR, 40 mEq, Oral, Daily senna-docusate sodium, 2 tablet, Oral, Nightly [2] [3] PRN medications: calcium gluconate, dextrose, dextrose, glucagon (rDNA), glucose, ipratropium-albuterol, magnesium hydroxide, magnesium sulfate OR magnesium sulfate, melatonin, naloxone, ondansetron ODT OR ondansetron, oxyCODONE OR oxyCODONE, potassium chloride OR potassium chloride OR potassium chloride, potassium chloride CR [4] Past Medical History: Diagnosis Date Alcohol abuse Aneurysm (HCC) Atrial fibrillation (HCC) Chronic bronchitis (HCC) CVA (cerebral vascular accident) (HCC) about 14 years ago per pt GERD (gastroesophageal reflux disease) Hypertension Nicotine abuse SONIA (obstructive sleep apnea) does not use cpap Paroxysmal supraventricular tachycardia (HCC) Shortness of breath [5] Past Surgical History: Procedure Laterality Date CARDIAC CATHETERIZATION N/A 06/08/2024 Performed by Joe Timmons MD at [facility] Cardiac Cath/EP Lab CHOLECYSTECTOMY 2015 KIDNEY STONE SURGERY LUMBAR DISCECTOMY NEPHRECTOMY Right 1998 [6] Allergies Allergen Reactions Penicillins Hives Other Reaction(s): GI upset, hives Hives or GI upset-patient unsure Aspirin Hives Other Reaction(s): GI Upset, GI upset, hives [7] Family History Problem Relation Name Age of Onset Coronary artery disease Mother Heart attack Mother Coronary artery disease Father Heart attack Father [8] Social History Tobacco Use Smoking status: Former Average packs/day: 1 pack/day for 18.0 years (18.0 ttl pk-yrs) Types: Cigarettes Start date: 2004 Smokeless tobacco: Never Vaping Use Vaping status: Never Used Substance Use Topics Alcohol use: Not Currently Comment: holidays/special occasions Drug use: Yes Frequency: 14.0 times per week Types: Marijuana Comment: smoking * Anay Johnson, STEAM LOCOMOTIVE FIRER/FIREMAN - 08/13/2024 2:04 PM EDT Images from the original note were not included. PHYSICAL THERAPY [facility] Treatment Note Name/MRN: Erickson Riggs ([id number]) Date of : 1960 Age: 64 y.o. Room/Bed: T1-118/T1-118 A Discharge Recommendation: Continue to assess pending progress (LTACH vs. SNF depending on progress and medical needs) Other: TBD - has FWW and WC Assessment Pt requires min assist for all mobility this session. Rest breaks needed throughout session. No PT goals met this session. Recommend LTACH vs. SNF at discharge. Subjective Pt is sitting up in the chair, agrees to PT. Okay for PT per RN. Pain: Pt denies any current pain. Medical Precautions: No active isolations Proper PPE donned/doffed in accordance with facility standards. Fall Risk: Nelson Fall Risk Score: 35 (Medium Risk) Precautions/Restrictions: Sternal Precautions: No lifting greater than 10 lbs. Ok for modified UE precautions using Keep Your Move in the Tube technique Lines/Drains/Airways: high flow O2 Skin care precautions Overall Cognitive Status: WFL Overall Orientation Status: Oriented to Place and Oriented to Person Family/Caregiver Present: none Objective Transfers/Mobility Sit to stand: Min Assist Stand to sit: Min Assist Verbal cues for sternal precaution compliance Ambulation Ambulation 1 Assistive device(s) used: None Assist level: Min Assist Distance (ft): 40 ft x 2 On 15L mask Balance During Session: Static stand with CGA Exercises Exercises Heelslides: x 10 Hip Flexion: BLE seated marching x10 reps Hip Abduction: x 10 Knee Long Arc Quad: BLE x10 reps Ankle Pumps: BLE x10 reps Upper Extremity: P&C exercises 1-9 x 8 reps each Plan Continue acute PT per plan of care. Safety/Education Safety Safety Devices in place: All fall risk precautions in place, call light within reach, left in chair, and no alarms engaged upon entry Restraints: No Education Education Given To: patient Education Provided: PT Role, PT Goals, Gait Training, Plan of Care, Home Exercise Program, Precautions, Transfer Training, and Discharge Recommendations Education Method: Verbal Barriers to Learning: None Education Outcome: Verbalized Understanding and Continued Education Needed Outcome Measures AM-PAC AM-PAC Inpatient Mobility Raw Score (No Stairs) : 15 JH-HLM -M Score: Walked 25 ft or more (i.e. walked outside of room) Goals Patient Stated Goal: breathe better and go home Encounter Problems Encounter Problems (Active) Cardiac Patient will perform bed mobility with modified independence in order to improve independence and prepare for out of bed mobility. (Not Addressed) Start: 08/04/24 Expected End: 09/01/24 Patient will complete sit to stand transfer with modified independence to no assistive device in order to improve safety and prepare for out of bed mobility. (Progressing) Start: 08/04/24 Expected End: 09/01/24 Patient will ambulate 350 feet or ambulate 5 minutes with modified independence with RPE of 14 or lower. (Progressing) Start: 08/04/24 Expected End: 09/01/24 Patient will ascend and descend 5 stairs with supervision rail for balance only. (Not Addressed) Start: 08/04/24 Expected End: 09/01/24 Patient will be independent with P&C exercises. (Progressing) Start: 08/04/24 Expected End: 09/01/24 Patient will be independent with managing secretions and home walking program. (Progressing) Start: 08/04/24 Expected End: 09/01/24 Therapy Time Individual Co-treatment Time In 1333 Time Out 1359 Minutes 26 Timed Code Treatment Minutes: (GT, TP) Anay Johnson, STEAM LOCOMOTIVE FIRER/FIREMAN Cosigned by Kayla Bledsoe, PT at 08/13/2024 2:46 PM EDT * Juan Bowling, COMMERCIAL PEST CONTROL REPRESENTATIVE - PLUMBING MANAGER - 08/13/2024 7:22 AM EDT Department of Internal Medicine Division of Endocrinology, Diabetes, & Metabolism Endocrinology Note Patient Name: Erickson Riggs : 1960 AGE: 64 y.o. Room/Bed: [facility]/[address] Admission Date: 08/03/2024 Visit Date: 08/13/2024 Reason for Endocrine Consult: post heart Provider/Team Requesting Consult: cts PCP: [facility] [employer] Supervisor: No ASSESSMENT: New onset DM2 with hyperglycemia without correction insulin, A1c 7.4% Aortic root replacement on 08-03-24 HTN HLD Morbid obesity Body mass index is 45.16 kg/m . Alcohol and nicotine use PLAN: Lantus 30 units QAM; continue Humalog 10 tidac (hold if NPO/no mealtime intake)--> 8 tidac Humalog 0-6 tidac SSI; continue -S/p IP DSME/insulin teaching 08/04/2024 ICU goal <180 GMF goal <150 POCT BG ACHS Hypoglycemia management per protocol Carb controlled diet ANTICIPATED ENDOCRINE HOME GOING RECOMMENDATIONS: Optimized for Discharge from Endocrine standpoint: No Home Going Endocrine Rx Recommendations-- Per Meds to beds has no prescription drug coverage Consider metformin and possibly relion [employer] pens homegoing OP patient assistance program consideration/application Could benefit from sglt2 vs glp1 -although will likely not be covered Glucometer, lancets, test trips, alcohol pads Outpt Follow Up-- Offered OP Endo follow up; pt declined 08/13/2024 Prefers to follow w/ PCP SUBJECTIVE/HPI: 64 yo male with PMH of HTN, aortic aneurysm, afib, cardiomyopathy, SONIA, former tobacco use, marijuana use, and solitary kidney. Pt follows with Cardiology who ordered an annual CTA chest which was completed on 04/26/24 and showed ascending thoracic aorta measures up to 5.2 cm. Previous CTA chest completed on 04/03/23 showed dilated ascending aorta measuring 4.7 cm. 08/03/2024 underwent valve sparing aortic root and ascending aorta replacement, EMMA exclusion. S/p aortic root repair A1c elevated, did not see any hx of dm2 or diabetes meds in chart review New onset DM2, states family history mother has DM2 he knows a little bit about diabetes Discussed A1c 08/13/2024 New onset DM2; identified to have A1c of 7.4% in June 2024 during preadmission testing Has not yet had any diabetic education Has not been started on medication in the outpatient setting yet for diabetes control He does endorse familiarity with the diagnosis as his mother has history of diabetes Complication History HTN: Endorses HLD: Endorses Renal: Endorses- Solitary Kidney (Nephrectomy 1998) Cardiac: Endorses-Afib, Aoric Aneurysm, Cardiomyopathy CVA: Endorses- CVA (02/2011) SONIA: Endorses- no use of CPAP currently Gastroparesis: Denies H/o Pancreatitis: Denies Impaired Wound Healing: Denies Amputation: Denies Metabolic Dysfunction Associated Steatotic Liver Disease: Endorses Hypoglycemic Unawareness: Denies 08/12 Improving trends with current doses, bgl below Continue current doses Had PT this morning Awake, sitting up Denies N/V/D abd pain Diet: Eating well, had BF and lunch so far today 08/11 Increasing trends, bgl below Will increase insulins today On PAP during visit (using at night and during naps) Awake, sitting up in bed, able to talk Denies N/V/D abd pain Chest tube removed States his diet is improving but still 1/2 of what he normally eats 08/10 Bgl below- remain stable-slightly tightly controlled lower insulins for today He is awake, takative but confused On oxygen -hi [place] Is eating pretty well No nv noted Spoke with nursing team in room No dc yet Type of DM: 2 Onset of DM: 07/27/2024 per PAT A1c testin.4% Home DM Medication Regimen: Untreated DM control (last A1c/glucose data): Glucose Date/Time Value Ref Range Status 08/13/2024 08:50 AM 126 (H) 70 - 100 mg/dL Final 08/12/2024 09:23 PM 100 70 - 100 mg/dL Final 08/12/2024 05:19 PM 121 (H) 70 - 100 mg/dL Final 08/12/2024 12:28 PM 109 (H) 70 - 100 mg/dL Final 08/12/2024 07:04 AM 147 (H) 70 - 100 mg/dL Final 08/11/2024 04:43 PM 96 70 - 100 mg/dL Final Lab Results Component Value Date HGBA1C 7.4 (H) 07/27/2024 Review of Systems ROS negative except for those mentioned in HPI. OBJECTIVE: Vitals: 08/13/24 0800 08/13/24 0808/13/24 0808/13/24899 BP: 126/76 128/79 BP Location: Right arm Patient Position: Lying Pulse: 81 95 (!) 133 (!) 132 Resp: 20 Temp: 36.3 C (97.3 F) TempSrc: Temporal SpO2: 95% 96% 94% Weight: Height: PF: Physical Exam Vitals reviewed. Constitutional: Appearance: Normal appearance. He is obese. He is ill-appearing. HENT: Head: Normocephalic. Cardiovascular: Rate and Rhythm: Normal rate. Comments: 81 bpm per tele Pulmonary: Effort: Pulmonary effort is normal. No respiratory distress. Comments: High flow O2 Neurological: Mental Status: He is alert and oriented to person, place, and time. Mental status is at baseline. Psychiatric: Mood and Affect: Mood normal. Judgment: Judgment normal. 24 hour intake/output: Intake/Output Summary (Last 24 hours) at 08/13/2024 1027 Last data filed at 08/13/2024 0700 Gross per 24 hour Intake 2370 ml Output 2175 ml Net 195 ml Diet: Adult diet Regular; 5 carb choices (75 gm/meal) Medications (as per EMR): HomeMeds: Current Outpatient Medications Medication Instructions amLODIPine (NORVASC) 10 mg, Daily doxazosin (Cardura) 2 MG tablet 1 tablet, Nightly metoprolol tartrate (LOPRESSOR) 25 mg, 2 times daily Scheduled Meds:Scheduled Meds[1] Continuous Infusions:Continuous Meds[2] PRN Meds:PRN Meds[3] Diagnostic Workup: I reviewed pertinent Laboratory results, Radiographic results, and Other Clinical Notes at the timeof today's encounter. Labs: No components found for: "LABA1C" No components found for: "EAG" Lab Results Component Value Date NA 142 08/13/2024 K 3.6 08/13/2024 CL 95 (L) 08/13/2024 CO2 34 (H) 08/13/2024 BUN 39 (H) 08/13/2024 CREATININE 1.20 08/13/2024 GLUCOSE 103 08/13/2024 CALCIUM 9.5 08/13/2024 No results found for: "CHLPL", "CHOL" No results found for: "TRIG" No results found for: "HDL" No results found for: "LDLCALC" No results found for: "VLDL" No results found for: "CHOLHDLRATIO" No results found for: "[id number]" No results found for: "TSH", "O8HICHR", "D8DQPPM", "THYROIDAB" Radiology reportsas per the Radiologist Radiology: Transesophageal echocardiogram (ENRIQUE) with contrast and 3D PRN Result Date: 08/09/2024 Left Ventricle: Left ventricle size is normal. Mildly increased wall thickness. Normal left ventricular systolic function. The EF by visual approximation is 60%. Normal wall motion. Right Ventricle: Right ventricle is mildly dilated. Catheter present in the right ventricle. Mildly reduced systolic function. Aortic Valve: Trileaflet. No cusp thickening. No cusp calcification. Mild (1+) regurgitation with multiple jets. Left Atrium: Normal appendage flow velocity. No left atrial appendage thrombus noted. No left atrial mass present. Interatrial Septum: PFO present with a left to right shunt viewable by color Doppler. Aorta: Normal sized aortic arch and descending aorta. Severely dilated sinuses of Valsalva. Sinuses of Valsalva diameter is 5.0 cm. Moderately dilated ascending aorta. Ao ascending diameter is 4.6 cm. Post-image: S/p valve sparing aortic root and ascending aorta replacement with 30 mm Cardioroot graft and 40 mm EMMA clip: No change in LV or RV function. Mild-moderate MV regurgitation. Normally functioning aortic valve without regurgitation; remeasured sinuses of Valsalva 3.6 cm. Thoracic aorta intact within ENRIQUE imaging limits, no dissection. Complete EMMA occlusion by clip. ECG 12 lead Atrial fibrillation Right bundle branch block Electronically Signed On 08-05-2024 11:18:11 EDT by Benjamin Haynes POCT glucose meter Result Date: 08/04/2024 Performed by: [facility], [address] [place] [address], Formerly [facility] [address] CLIA ID: [id number] POCT glucose meter Result Date: 08/04/2024 Performed by: [facility], [address] [place] [address], [place] [address] CLIA ID: [id number] POCT glucose meter Result Date: 08/04/2024 Performed by: [facility], [address] [place] [address], [facility]ly [facility] [address] CLIA ID: [id number] XR chest 1 view Result Date: 08/04/2024 Patient Name: ERICKSON RIGGS : 1960 Exam Date/Time: 08/04/2024 20:10 Procedure: XR CHEST 1 VIEW Ordering Provider: SOLANO RICHARD Reason For Exam: DYSPNEA INDICATION: Aneurysm of the ascending aorta without rupture. VIEWS: Chest portable-2 images COMPARISON: 08/04/2024 at 5:34 TIME: 08/04/2024 at 20:12 FINDINGS: A right IJ vascular catheter sheath remains with interval removal of the [place]-Brian catheter. The trachea is midline. The cardiac silhouette is enlarged. Median sternotomy wires are present. A left atrial appendage clamp is present. Bibasilar opacities are present with blunting of the costophrenic angles. 1. Bibasilar opacities which may reflect atelectasis and/or small pleural effusions. 2. Cardiomegaly. Report Dictated on Electronically Signed By: Keesha Seals MD Electronically Signed Date/Time: 08/04/2024 8:15 PM EDT POCT glucose meter Result Date: 08/04/2024 Performed by: [facility], [address] [place] [address], [facility]ly [facility] [address] CLIA ID: [id number] POCT glucose meter Result Date: 08/04/2024 Performed by: [employer] [place] [facility], [address] [place] [address], [place] [address] CLIA ID: [id number] POCT glucose meter Result Date: 08/04/2024 [facility]formed by: [facility] [place] [facility], [address] [place] [address], [place] [address] CLIA ID: [id number] POCT glucose meter Result Date: 08/04/2024 Performed by: [facility] [place] [facility], [address] [place] [address], [place] [address] CLIA ID: [id number] POCT glucose meter Result Date: 08/04/2024 Performed by: [facility] [place] [facility], [address] [place] [address], [place] [address] CLIA ID: [id number] POCT glucose meter Result Date: 08/04/2024 Performed by: [facility] [place] [facility], [address] [place] [address], [place] [address] CLIA ID: [id number] POCT glucose meter Result Date: 08/04/2024 Performed by: [facility] [place] [facility], [address] [place] [address] [place] [address] CLIA ID: [id number] ECG 12 lead Ventricular-paced rhythm Electronically Signed On 08-04-2024 13:07:15 EDT by Michael Patricia POCT glucose meter Result Date: 08/04/2024 Performed by: [facility] [place] [facility], [address] [place], [place] [address] [place] [address] CLIA ID: [id number] POCT glucose meter Result Date: 08/04/2024 Performed by: [facility] [place] [facility], [address] [place] [address], [place] [address] CLIA ID: [id number] ECG 12 lead Sinus rhythm or ectopic atrial rhythm with prolonged MT iintrerval Right bundle branch block Pericarditis Electronically Signed On 08-04-2024 12:48:47 EDT by Michael Patricia POCT glucose meter Result Date: 08/04/2024 Performed by: [facility] [place] [facility], [address] [place] [address], [place] [address] CLIA ID: [id number] POCT glucose meter Result Date: 08/04/2024 Performed by: [facility] [place] [facility], [address] [place] [address], [place] [address] CLIA ID: [id number] POCT glucose meter Result Date: 08/04/2024 Performed by: [facility] [employer] [facility], [address] [place] [address] CLIA ID: [id number] ECG 12 lead Sinus rhythm Atrial premature complexes frequent Right bundle branch block Widespread ST elevation consistent with pericarditis Electronically Signed On 08-04-2024 08:47:13 EDT by Michael Patricia POCT glucose meter Result Date: 08/04/2024 Performed by: [facility] [place] [facility], [address] [place] [address] CLIA ID: [id number] XR chest 1 view Result Date: 08/04/2024 [facility]ICK[facility]IG[facility] 1960 [id number] Exam Date/Time: 08/04/2024 05:32 Procedure: XR CHEST 1 VIEW Ordering Provider: NUNEZ KYLE Reason For Exam: Shortness of breath AP CHEST X-RAY CLINICAL INDICATION: Shortness of breath TECHNIQUE: AP portable x- ray of the chest. COMPARISON: August 03, 2024 FINDINGS: The study is limited due to patient rotation. Midline sternotomy wires are noted. Lines/Tubes: Right-sided [place]-Brian catheter is noted with distal tip level the main pulmonary artery. Endotracheal tube and nasogastric tubes have been removed. Mediastinal drain is noted. Heart/Mediastinum: Cardiac silhouette is enlarged. Left atrial appendage clip is noted. Lungs: Persistent left basilar opacity is again noted with blunting left costophrenic angle. Pulmonary vascular congestion is again noted similar to previous exam. Bones: Unremarkable Interval removal of endotracheal and nasogastric tubes. Otherwise no significant interval change Report Dictated on Electronically Signed By: Benjamin Bucio MD Electronically Signed Date/Time: 08/04/2024 8:04 AM EDT POCT glucose meter Result Date: 08/04/2024 [facility]formed [facility]: [facility], [address] [place] [address] CLIA ID: [id number] POCT glucose meter Result Date: 08/04/2024 Performed by: [facility], [address] [place] [address] CLIA ID: [id number] POCT glucose meter Result Date: 08/04/2024 Performed by: [facility] [place] [facility], [address] [place] [address], [place] [address] CLIA ID: [id number] POCT glucose meter Result Date: 08/04/2024 Performed by: [facility] [place] [facility], [address] [place] [address], [place] [address] CLIA ID: [id number] POCT glucose meter Result Date: 08/04/2024 Performed by: [facility] [place] [facility], [address] [place] [address], [place] [address] CLIA ID: [id number] POCT glucose meter Result Date: 08/04/2024 Performed by: [facility] [place] [facility], [address] [place] [address], [place] [address] CLIA ID: [id number] POCT glucose meter Result Date: 08/04/2024 Performed by: [facility] [place] [facility], [address] [place] [address], [place] [address] CLIA ID: [id number] POCT glucose meter Result Date: 08/04/2024 Performed by: [facility] [place] [facility], [address] [place] [address], [place] [address] CLIA ID: [id number] POCT glucose meter Result Date: 08/03/2024 Performed by: [facility] [place] [facility], [address] [place] [address], [place] [address] CLIA ID: [id number] POCT glucose meter Result Date: 08/03/2024 Performed by: [facility] [place] [facility], [address] [place] [address], [place] [address] CLIA ID: [id number] POCT glucose meter Result Date: 08/03/2024 Performed by: [facility] [place] [facility], [address] [place] [address], [place] [address] CLIA ID: [id number] POCT glucose meter Result Date: 08/03/2024 Performed by: [facility] [place] [facility], [address] [place] [address], [place] [address] CLIA ID: [id number] POCT glucose meter Result Date: 08/03/2024 Performed by: [facility] [place] [facility], [address] [place] [address], [place] [address] CLIA ID: [id number] POCT glucose meter Result Date: 08/03/2024 Performed by: [facility] [place] [facility], [address] [place] [address] CLIA ID: [id number] POCT glucose meter Result Date: 08/03/2024 [facility]: [facility], [address] [place] [address] CLIA ID: [id number] POCT glucose meter Result Date: 08/03/2024 [facility]formed [facility]: [facility], [address] [place] [address] CLIA ID: [id number] POCT glucose meter Result Date: 08/03/2024 [facility]formed by: [facility], [address] [place] [address] CLIA ID: [id number] POCT glucose meter Result Date: 08/03/2024 Performed by: [facility], [address] [place] [address] CLIA ID: [id number] XR chest 1 view Result Date: 08/03/2024 Patient Name: ERICKSON RIGGS : 1960 [facility]#: [id number] Exam Date/Time: 08/03/2024 15:19 Procedure: XR CHEST 1 VIEW Ordering Provider: NUNEZ KYLE Reason For Exam: Post op open heart surgery; ETT placement PORTABLE CHEST X-RAY CLINICAL INDICATION: Status post open heart surgery, endotracheal tube placement A portable frontal view of the chest was obtained. COMPARISON: 08/03/2024 at 1455 FINDINGS: The heart is enlarged. Sternotomy wires and left atrial appendage clip are noted. Endotracheal tube appears to terminate approximately 4.5 cm above thecarina. Feeding tube terminates below the level of the diaphragm. The tip is not seen. Right jugular [place]-Brian catheter terminates in the expected location of the right pulmonary artery. Mediastinal drain is noted. There is pulmonary vascular congestion with left retrocardiac atelectasis and likelysmall left pleural effusion. No pneumothorax is seen. There are degenerative changes of the spine. Lines and tubes as above. Pulmonary vascular congestion. Small left pleural effusion. No evidence of pneumothorax. Report Dictated on Electronically Signed By: Aiden Chinchilla MD Electronically Signed Date/Time: 08/03/2024 3:55 PM EDT XR chest 1 view Result Date: 08/03/2024 [facility] Name: ERICKSON RIGGS : 1960 [id number] Exam Date/Time: 08/03/2024 14:31 Procedure: XR CHEST 1 VIEW Ordering Provider: SOLANO RICHARD Reason For Exam: FOREIGN BODY; Confirm Needle Count AP CHEST X-RAY CLINICAL INDICATION: FOREIGN BODY;Confirm Needle Count TECHNIQUE: AP portable x-ray of the chest. COMPARISON: None FINDINGS: Intraoperative radiographs of the chest were obtained for incorrect instrument count. The patient has undergone open heart surgery with sternal wires and mediastinal drain. There is also a [place]-Brian catheter,ETT and NG tube. An atrial appendage clip is present. No radiopaque foreign body or instrument is id entified. The cardiomediastinal silhouette is enlarged. No evidence of a retained surgical instrument. Discussed with OR team at the time of exam completion. Report Dictated on Electronically Signed By: Adrian Alvarez MD Electronically Signed Date/Time: 08/03/2024 2:53 PM EDT History/Other: Past Medical History: Medical History[4] Past Surgical History: Surgical History[5] Allergy(ies): Allergies[6] Family History: Family History[7] Social History: Social History[8] Portions of the information within this encounter were entered using an electronic dictation system. Best attempts were made to edit/proofread the information prior to note completion. Despite the review of information, some errors may remain. If there are questions related to the information contained within the note please contact the signing physician directly. I spent 35 minutes with the pt which involved coordination of care, medical evaluation, review of records, and/or counseling of the pt regarding his/her condition/disease state/prognosis on the date of this note. [1] acetaminophen, 1,000 mg, Oral, q8h amiodarone, 400 mg, Oral, BID amLODIPine, 5 mg, Oral, Daily [Held by provider] apixaban, 5 mg, Oral, BID asenapine, 5 mg, SubLINGual, Nightly bumetanide, 2 mg, IntraVENous, TID doxazosin, 2 mg, Oral, Daily guaiFENesin, 600 mg, Oral, BID insulin glargine, 30 Units, SubCUTAneous, q24h insulin lispro, 0-6 Units, SubCUTAneous, TID WC insulin lispro, 10 Units, SubCUTAneous, TID WC ipratropium-albuterol, 3 mL, Nebulization, TID Lidocaine, 1 patch, Topical, Daily metoprolol succinate XL, 100 mg, Oral, Daily pantoprazole, 40 mg, Oral, qAM AC polyethylene glycol (PEG) 3350, 17 g, Oral, Daily potassium chloride CR, 40 mEq, Oral, Daily senna-docusate sodium, 2 tablet, Oral, Nightly [2] [3] PRN medications: calcium gluconate, dextrose, dextrose, glucagon (rDNA), glucose, ipratropium-albuterol, magnesium hydroxide, magnesium sulfate OR magnesium sulfate, melatonin, naloxone, ondansetron ODT OR ondansetron, oxyCODONE OR oxyCODONE, potassium chloride OR potassium chloride OR potassium chloride, potassium chloride CR [4] Past Medical History: Diagnosis Date Alcohol abuse Aneurysm (HCC) Atrial fibrillation (HCC) Chronic bronchitis (HCC) CVA (cerebral vascular accident) (HCC) about 14 years ago per pt GERD (gastroesophageal reflux disease) Hypertension Nicotine abuse SONIA (obstructive sleep apnea) does not use cpap Paroxysmal supraventricular tachycardia (HCC) Shortness of breath [5] Past Surgical History: Procedure Laterality Date CARDIAC CATHETERIZATION N/A 06/08/2024 Performed by Joe Timmons MD at [facility] Cardiac Cath/EP Lab CHOLECYSTECTOMY 2014 KIDNEY STONE SURGERY LUMBAR DISCECTOMY NEPHRECTOMY Right 1998 [6] Allergies Allergen Reactions Penicillins Hives Other Reaction(s): GI upset, hives Hives or GI upset-patient unsure Aspirin Hives Other Reaction(s): GI Upset, GI upset, hives [7] Family History Problem Relation Name Age of Onset Coronary artery disease Mother Heart attack Mother Coronary artery disease Father Heart attack Father [8] Social History Tobacco Use Smoking status: Former Average packs/day: 1 pack/day for 18.0 years (18.0 ttl pk-yrs) Types: Cigarettes Start date: 2004 Smokeless tobacco: Never Vaping Use Vaping status: Never Used Substance Use Topics Alcohol use: Not Currently Comment: holidays/special occasions Drug use: Yes Frequency: 14.0 times per week Types: Marijuana Comment: smoking * Keesha Aleta Jessica, GARY Miller CNP - 08/13/2024 6:36 AM EDT Images from the original note were not included. Cardiothoracic Surgery/[facility] Progress Note PATIENT NAME: Erickson Riggs DATE: 08/13/24 HPI: 64 yo male with PMH of HTN, aortic aneurysm, afib, cardiomyopathy, SONIA, former tobacco use, marijuana use, and solitary kidney. Pt follows with Cardiology who ordered an annual CTA chest which was completed on 04/26/24 and showed ascending thoracic aorta measures up to 5.2 cm. Previous CTA chest completed on 04/03/23 showed dilated ascending aorta measuring 4.7 cm. He was referred to Dr. Solano as an OP. He admits to being sedentary most of the time, washing dishes wears him out. Surgery/Procedure: 08/03/24: s/p valve sparing aortic root and ascending aorta replacement with 30mm Cardioroot graft, Left atrial appendage exlusion with 40mm Atriclip, ENRIQUE with Dr. Solano Interval History: 08/13/24, POD# 10: Remains on heated HFNC, weaning down. NSR with intermittent episodes of ST and Afib when ambulating, reverts to NSR when resting. He is asymptomtic. Had episode of bloody stool, reports this is normal for him and occurs approx every 2 months. Review of Systems Constitutional: Positive for activity change. Negative for appetite change, diaphoresis, fatigue and fever. Respiratory: Positive for cough and shortness of breath. Negative for wheezing. Cardiovascular: Positive for leg swelling. Negative for chest pain and palpitations. Gastrointestinal: Negative for abdominal distention, abdominal pain, nausea and vomiting. Skin: Negative for color change, pallor and rash. Objective: Last BM Date: 08/12/24 Vitals: BP: 132/76, MAP (mmHg): 92, BP Method: Automatic Heart Rate: (!) 128 Resp: 18 Temp: 36.1 C (97 F), Temp Source: Temporal BMI (Calculated): 45.61 CXR: BMP: Recent Labs 08/11/2421408/11/244 08/11/24195808/12/2444808/12/24143808/13/24 0133 NA -- < > 141 -- 143 142 K 3.3* < > 3.5 -- 3.6 3.6 CL -- < > 96* -- 96* 95* CO2 -- < > 35* -- 36* 34* BUN -- < > 48* -- 41* 39* CREATININE -- < > 1.27* -- 1.43* 1.20 CALCIUM -- < > 9.6 -- 9.5 9.5 MG 2.2 -- -- 2.1 -- 2.0 < > = values in this interval not displayed. CBC: Recent Labs 08/11/2421408/12/2444808/13/24 013 WBC 12.5* 12.5* 13.3* HGB 10.6* 11.0* 11.2* HCT 32.7* 34.6* 35.4* PLT 248 224 219 MCV 90.3 92.0 90.8 RDW 14.4 14.6 14.7 INR: No results for input(s): "INR" in the last 72 hours. Physical Exam Vitals reviewed. Constitutional: Comments: Heated HFNC Cardiovascular: Rate and Rhythm: Normal rate and regular rhythm. Pulses: Normal pulses. Heart sounds: No murmur heard. Pulmonary: Effort: Pulmonary effort is normal. No respiratory distress. Breath sounds: Decreased breath sounds present. No wheezing, rhonchi or rales. Abdominal: General: There is distension. Palpations: Abdomen is soft. Tenderness: There is no abdominal tenderness. Musculoskeletal: General: Swelling present. Right lower le+ Edema present. Left lower le+ Edema present. Skin: General: Skin is warm and dry. Comments: Surgical incisions well approximated, no redness, warmth or drainage. Neurological: General: No focal deficit present. Mental Status: He is alert. Psychiatric: Mood and Affect: Mood normal. Behavior: Behavior normal. Behavior is cooperative. Assessment: Aortic aneurysm s/p valve sparing aortic root replacement Afib Cardiomyopathy HTN SONIA S/p nephrectomy d/t tumor Former smoker Marijuana smoker Hx ischemic stroke Post operative Pulm Management: Normal Post-operative Course Post-operative Atrial Fibrillation: [x]Yes [] No Acute blood loss anemia/consumptive thrombocytopenia Plan: Patient status: ICU Medications: BB- Metoprolol 50mg BID Amio 400mg PO BID Eliquis d/t intermittent Afib - held d/t hematochezia Bumex 2mg IV TID Asenapine HS for sleep Home meds: Cardura, Amlodipine (10mg home dose) Bowel regimen: senna, miralax GI prophy: PO protonix DVT prophy:TEDs, SCDs, and Patient on OAC/NOAC Interventions: Encourage ambulation, progressive mobility Wean O2 to SpO2 > 88% Pulmonary hygiene: IS and Acapella Consults: Endocrine following for insulin needs PT/OT: PT: Continue to assess pending progress (LTACH vs. SNF depending on progress and medical needs) OT: LTACH (LTACH- Pending approval of OTR/L d/t change in REC from IPR.) TCC/Discharge Planning TBD- possibly LTACH d/t O2 requirements Central Line: [x]Yes [] No Arterial Line: []Yes [x] No Iyer: []Yes [x] No Restraints: []Yes [x] No Patient discussed and plan of day developed from multidisciplinary rounds between Cardiothoracic Surgery (Cardiothoracic Surgeon, ENMA) and Critical Care Attending Critical Care time spent 26 minutes. The time involved in the performance of this care was exclusive of separately billable procedures, teaching time and treating other patients. The time was spent personally by myself for the following activities: examination of the patient, ordering and/or performing treatment, reviewing the laboratory and radiographic studies, and if applicable, ventilator management and blood gas interpretation. Cardiac Core Medications: Not indicated due to type of surgery EF: 74% (07/04/24) Blood Conservation: None noted in post-operative period Re Recording Mixer: Dr. Bragg Cosigned by Bienvenido Rodriguez MD at 08/13/2024 2:53 PM EDT * Franky Yee PA-C - 08/12/2024 11:08 AM EDT Department of Internal Medicine Division of Endocrinology, Diabetes, & Metabolism Endocrinology Note Patient Name: Erickson Riggs : 1960 AGE: 64 y.o. 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 PLAN: BGL improving, continue current doses Lantus 30 units qam Humalog 01/06/10 tid meals -please hold if NPO or not eating Humalog low sliding scale 3 times daily ICU goal <180 GMF goal <150 POCT BG ACHS Hypoglycemia management per protocol Carb controlled diet ANTICIPATED ENDOCRINE HOME GOING RECOMMENDATIONS: Optimized for Discharge from Endocrine standpoint: No Home Going Endocrine Rx Recommendations-- Per Meds to beds has no prescription drug coverage Consider metformin and possibly relion [employer] homegoing Could benefit from sglt2 vs glp1 -although will likely not be covered Glucometer, lancets, test trips, alcohol pads Outpt Follow Up-- PCP SUBJECTIVE/HPI: CHIEF COMPLAINT: No chief complaint on file. S/p aortic root repair A1c elevated, did not see any hx of dm2 or diabetes meds in chart review New onset DM2, states family history mother has DM2 he knows a little bit about diabetes Discussed A1c 08/12 Improving trends with current doses, bgl below Continue current doses Had PT this morning Awake, sitting up Denies N/V/D abd pain Diet: Eating well, had BF and lunch so far today 08/11 Increasing trends, bgl below Will increase insulins today On PAP during visit (using at night and during naps) Awake, sitting up in bed, able to talk Denies N/V/D abd pain Chest tube removed States his diet is improving but still 1/2 of what he normally eats 08/10 Bgl below- remain stable-slightly tightly controlled lower insulins for today He is awake, takative but confused On oxygen -hi [place] Is eating pretty well No nv noted Spoke with nursing team in room No dc yet Type of DM: 2 Onset of DM: not clear Home DM Medication Regimen: none DM control (last A1c/glucose data): Glucose Date/Time Value Ref Range Status 08/12/2024 07:04 AM 147 (H) 70 - 100 mg/dL Final 08/11/2024 04:43 PM 96 70 - 100 mg/dL Final 08/11/2024 11:44 AM 119 (H) 70 - 100 mg/dL Final 08/11/2024 08:13 AM 218 (H) 70 - 100 mg/dL Final 08/10/2024 04:46 PM 141 (H) 70 - 100 mg/dL Final 08/10/2024 01:53 PM 168 (H) 70 - 100 mg/dL Final Review of Systems ROS negative except for those mentioned in HPI. OBJECTIVE: Vitals: 08/12/24 0600 08/12/24 0700 08/12/24 0800 08/12/24 0948 BP: 127/66 144/70 118/75 BP Location: Patient Position: Pulse: 78 90 73 Resp: 18 Temp: 36.7 C (98 F) TempSrc: Temporal SpO2: 98% 92% Weight: Height: PF: Physical Exam Vitals reviewed. Constitutional: General: He is not in acute distress. Appearance: He is obese. He is not toxic-appearing. HENT: Head: Normocephalic and atraumatic. Nose: Nose normal. Mouth/Throat: Mouth: Mucous membranes are moist. Pharynx: Oropharynx is clear. Cardiovascular: Rate and Rhythm: Normal rate. Pulmonary: Effort: Pulmonary effort is normal. Skin: General: Skin is warm and dry. Neurological: General: No focal deficit present. Mental Status: He is alert and oriented to person, place, and time. 24 hour intake/output: Intake/Output Summary (Last 24 hours) at 08/12/2024 1108 Last data filed at 08/11/2024 1654 Gross per 24 hour Intake 360 ml Output -- Net 360 ml Diet: Adult diet Regular; 5 carb choices (75 gm/meal) Medications (as per EMR): HomeMeds: Current Outpatient Medications Medication Instructions amLODIPine (NORVASC) 10 mg, Daily doxazosin (Cardura) 2 MG tablet 1 tablet, Nightly metoprolol tartrate (LOPRESSOR) 25 mg, 2 times daily Scheduled Meds:Scheduled Meds[1] Continuous Infusions:Continuous Meds[2] PRN Meds:PRN Meds[3] Diagnostic Workup: I reviewed pertinent Laboratory results, Radiographic results, and Other Clinical Notes at the timeof today's encounter. Labs: No components found for: "LABA1C" No components found for: "EAG" Lab Results Component Value Date NA 141 08/11/2024 K 3.5 08/11/2024 CL 96 (L) 08/11/2024 CO2 35 (H) 08/11/2024 BUN 48 (H) 08/11/2024 CREATININE 1.27 (H) 08/11/2024 GLUCOSE 180 (H) 08/11/2024 CALCIUM 9.6 08/11/2024 No results found for: "CHLPL", "CHOL" No results found for: "TRIG" No results found for: "HDL" No results found for: "LDLCALC" No results found for: "VLDL" No results found for: "CHOLHDLRATIO" No results found for: "EMZQ20PXD" No results found for: "TSH", "K9CCPIC", "Y4GQOTT", "THYROIDAB" Radiology reportsas per the Radiologist Radiology: Transesophageal echocardiogram (ENRIQUE) with contrast and 3D PRN Result Date: 08/09/2024 Left Ventricle: Left ventricle size is normal. Mildly increased wall thickness. Normal left ventricular systolic function. The EF by visual approximation is 60%. Normal wall motion. Right Ventricle: Right ventricle is mildly dilated. Catheter present in the right ventricle. Mildly reduced systolic function. Aortic Valve: Trileaflet. No cusp thickening. No cusp calcification. Mild (1+) regurgitation with multiple jets. Left Atrium: Normal appendage flow velocity. No left atrial appendage thrombus noted. No left atrial mass present. Interatrial Septum: PFO present with a left to right shunt viewable by color Doppler. Aorta: Normal sized aortic arch and descending aorta. Severely dilated sinuses of Valsalva. Sinuses of Valsalva diameter is 5.0 cm. Moderately dilated ascending aorta. Ao ascending diameter is 4.6 cm. Post-image: S/p valve sparing aortic root and ascending aorta replacement with 30 mm Cardioroot graft and 40 mm EMMA clip: No change in LV or RV function. Mild-moderate MV regurgitation. Normally functioning aortic valve without regurgitation; remeasured sinuses of Valsalva 3.6 cm. Thoracic aorta intact within ENRIQUE imaging limits, no dissection. Complete EMMA occlusion by clip. ECG 12 lead Atrial fibrillation Right bundle branch block Electronically Signed On 08-05-2024 11:18:11 EDT by Benjamin Haynes POCT glucose meter Result Date: 08/04/2024 Performed by: [facility], [address] [place] [address] CLIA ID: [id number] POCT glucose meter Result Date: 08/04/2024 Performed by: [employer] [facility], [address] [place] [address] CLIA ID: [id number] POCT glucose meter Result Date: 08/04/2024 Performed by: [employer] [facility], [address] [place] [address] CLIA ID: [id number] XR chest 1 view Result Date: 08/04/2024 Patient Name: ERICKSON RIGGS : 1960 [facility]#: [id number] Exam Date/Time: 08/04/2024 20:10 Procedure: XR CHEST 1 VIEW Ordering Provider: SOLANO RICHARD Reason For Exam: DYSPNEA INDICATION: Aneurysm of the ascending aorta without rupture. VIEWS: Chest portable-2 images COMPARISON: 08/04/2024 at 5:34 TIME: 08/04/2024 at 20:12 FINDINGS: A right IJ vascular catheter sheath remains with interval removal of the [place]-Brian catheter. The trachea is midline. The cardiac silhouette is enlarged. Median sternotomy wires are present. A left atrial appendage clamp is present. Bibasilar opacities are present with blunting of the costophrenic angles. 1. Bibasilar opacities which may reflect atelectasis and/or small pleural effusions. 2. Cardiomegaly. Report Dictated on Electronically Signed By: Keesha Seals MD Electronically Signed Date/Time: 08/04/2024 8:15 PM EDT POCT glucose meter Result Date: 08/04/2024 Performed by: [facility] [place] [facility], [address] [place] [address], [place] [address] CLIA ID: [id number] POCT glucose meter Result Date: 08/04/2024 Performed by: [facility] [place] [facility], [address] [place] [address], [place] [address] CLIA ID: [id number] POCT glucose meter Result Date: 08/04/2024 Performed by: [facility] [place] [facility], [address] [place] [address], [place] [address] CLIA ID: [id number] POCT glucose meter Result Date: 08/04/2024 Performed by: [facility] [place] [facility], [address] [place] [address], [place] [address] CLIA ID: [id number] POCT glucose meter Result Date: 08/04/2024 Performed by: [facility] [place] [facility], [address] [place] [address], [place] [address] CLIA ID: [id number] POCT glucose meter Result Date: 08/04/2024 Performed by: [facility] [place] [facility], [address] [place] [address], [place] [address] CLIA ID: [id number] POCT glucose meter Result Date: 08/04/2024 Performed by: [facility] [place] [facility], [address] [place] [address], [place] [address] CLIA ID: [id number] ECG 12 lead Ventricular-paced rhythm Electronically Signed On 08-04-2024 13:07:15 EDT by Michael Patricia POCT glucose meter Result Date: 08/04/2024 Performed by: [employer] [place] [facility], [address] [place] [address], [place] [address] CLIA ID: [id number] POCT glucose meter Result Date: 08/04/2024 Performed by: [employer] [place] [facility], [address] [place] [address], [place] [address] CLIA ID: [id number] ECG 12 lead Sinus rhythm or ectopic atrial rhythm with prolonged MT iintrerval Right bundle branch block Pericarditis Electronically Signed On 08-04-2024 12:48:47 EDT by Michael Cliffordhina POCT glucose meter Result Date: 08/04/2024 Performed by: [facility], [address] [place] [address] CLIA ID: [id number] POCT glucose meter Result Date: 08/04/2024 Performed by: [facility] [place] [facility], [address] [place] [address] CLIA ID: [id number] POCT glucose meter Result Date: 08/04/2024 Performed by: [employer] [facility], [address] [place] [address], [facility] [address] CLIA ID: [id number] ECG 12 lead Sinus rhythm Atrial premature complexes frequent Right bundle branch block Widespread ST elevation consistent with pericarditis Electronically Signed On 08-04-2024 08:47:13 EDT by Michael Patricia POCT glucose meter Result Date: 08/04/2024 Performed by: [employer] [facility], [address] [place] [address] CLIA ID: [id number] XR chest 1 view Result Date: 08/04/2024 [facility] 1960 [id number] Exam Date/Time: 08/04/2024 05:32 Procedure: XR CHEST 1 VIEW Ordering Provider: NUNEZ KYLE Reason For Exam: Shortness of breath AP CHEST X-RAY CLINICAL INDICATION: Shortness of breath TECHNIQUE: AP portable x- ray of the chest. COMPARISON: August 03, 2024 FINDINGS: The study is limited due to patient rotation. Midline sternotomy wires are noted. Lines/Tubes: Right-sided [place]-Brian catheter is noted with distal tip level the main pulmonary artery. Endotracheal tube and nasogastric tubes have been removed. Mediastinal drain is noted. Heart/Mediastinum: Cardiac silhouette is enlarged. Left atrial appendage clip is noted. Lungs: Persistent left basilar opacity is again noted with blunting left costophrenic angle. Pulmonary vascular congestion is again noted similar to previous exam. Bones: Unremarkable Interval removal of endotracheal and nasogastric tubes. Otherwise no significant interval change Report Dictated on Electronically Signed By: Benjamin Bucio MD Electronically Signed Date/Time: 08/04/2024 8:04 AM EDT POCT glucose meter Result Date: 08/04/2024 Performed by: [facility] [place] [facility], [address] [place] [address], [place] [address] CLIA ID: [id number] POCT glucose meter Result Date: 08/04/2024 Performed by: [facility] [place] [facility], [address] [place] [address], [place] [address] CLIA ID: [id number] POCT glucose meter Result Date: 08/04/2024 Performed by: [facility] [place] [facility], [address] [place] [address], [place] [address] CLIA ID: [id number] POCT glucose meter Result Date: 08/04/2024 Performed by: [facility] [place] [facility], [address] [place] [address], [place] [address] CLIA ID: [id number] POCT glucose meter Result Date: 08/04/2024 Performed by: [facility] [place] [facility], [address] [place] [address], [place] [address] CLIA ID: [id number] POCT glucose meter Result Date: 08/04/2024 Performed by: [facility] [place] [facility], [address] [place] [address], [place] [address] CLIA ID: [id number] POCT glucose meter Result Date: 08/04/2024 Performed by: [facility] [place] [facility], [address] [place] [address], [place] [address] CLIA ID: [id number] POCT glucose meter Result Date: 08/04/2024 Performed by: [facility] [place] [facility], [address] [place] [address], [place] [address] CLIA ID: [id number] POCT glucose meter Result Date: 08/03/2024 Performed by: [facility] [place] [facility], [address] [place] [address], [place] [address] CLIA ID: [id number] POCT glucose meter Result Date: 08/03/2024 Performed by: [facility] [place] [facility], [address] [place] [address], [place] [address] CLIA ID: [id number] POCT glucose meter Result Date: 08/03/2024 Performed by: [facility] [place] [facility], [address] [place] [address], [place] [address] CLIA ID: [id number] POCT glucose meter Result Date: 08/03/2024 Performed by: [facility] [place] [facility], [address] [place] [address], [place] [address] CLIA ID: [id number] POCT glucose meter Result Date: 08/03/2024 [facility]formed by: [facility], [address] [place] [address], [place] [address] CLIA ID: [id number] POCT glucose meter Result Date: 08/03/2024 Performed by: [facility], [address] [place] [address], [place] [address] CLIA ID: [id number] POCT glucose meter Result Date: 08/03/2024 Performed by: [facility], [address] [place] [address], [place] [address] CLIA ID: [id number] POCT glucose meter Result Date: 08/03/2024 Performed by: [facility], [address] [place] [address], [place] [address] CLIA ID: [id number] POCT glucose meter Result Date: 08/03/2024 Performed by: [facility], [address] [place] [address], [place] [address] CLIA ID: [id number] POCT glucose meter Result Date: 08/03/2024 Performed by: [facility], [address] [place] [address], [place] [address] CLIA ID: [id number] XR chest 1 view Result Date: 08/03/2024 Patient Name: ERICKSON RIGGS : 1960 [facility]#: [id number] Exam Date/Time: 08/03/2024 15:19 Procedure: XR CHEST 1 VIEW Ordering Provider: NUNEZ KYLE Reason For Exam: Post op open heart surgery; ETT placement PORTABLE CHEST X-RAY CLINICAL INDICATION: Status post open heart surgery, endotracheal tube placement A portable frontal view of the chest was obtained. COMPARISON: 08/03/2024 at 1455 FINDINGS: The heart is enlarged. Sternotomy wires and left atrial appendage clip are noted. Endotracheal tube appears to terminate approximately 4.5 cm above thecarina. Feeding tube terminates below the level of the diaphragm. The tip is not seen. Right jugular [place]-Biran catheter terminates in the expected location of the right pulmonary artery. Mediastinal drain is noted. There is pulmonary vascular congestion with left retrocardiac atelectasis and likelysmall left pleural effusion. No pneumothorax is seen. There are degenerative changes of the spine. Lines and tubes as above. Pulmonary vascular congestion. Small left pleural effusion. No evidence of pneumothorax. Report Dictated on Electronically Signed By: Aiden Chinchilla MD Electronically Signed Date/Time: 08/03/2024 3:55 PM EDT XR chest 1 view Result Date: 08/03/2024 Patient Name: ERICKSON RIGGS : 1960 Exam Date/Time: 08/03/2024 14:31 Procedure: XR CHEST 1 VIEW Ordering Provider: SOLANO RICHARD Reason For Exam: FOREIGN BODY; Confirm Needle Count AP CHEST X-RAY CLINICAL INDICATION: FOREIGN BODY;Confirm Needle Count TECHNIQUE: AP portable x-ray of the chest. COMPARISON: None FINDINGS: Intraoperative radiographs of the chest were obtained for incorrect instrument count. The patient has undergone open heart surgery with sternal wires and mediastinal drain. There is also a [place]-Brian catheter,ETT and NG tube. An atrial appendage clip is present. No radiopaque foreign body or instrument is id entified. The cardiomediastinal silhouette is enlarged. No evidence of a retained surgical instrument. Discussed with OR team at the time of exam completion. Report Dictated on Electronically Signed By: Adrian Alvarez MD Electronically Signed Date/Time: 08/03/2024 2:53 PM EDT History/Other: Past Medical History: Medical History[4] Past Surgical History: Surgical History[5] Allergy(ies): Allergies[6] Family History: Family History[7] Social History: Social History[8] Portions of the information within this encounter were entered using an electronic dictation system. Best attempts were made to edit/proofread the information prior to note completion. Despite the review of information, some errors may remain. If there are questions related to the information contained within the note please contact the signing physician directly. I spent 35 minutes with the pt which involved coordination of care, medical evaluation, review of records, and/or counseling of the pt regarding his/her condition/disease state/prognosis on the date of this note. [1] acetaminophen, 1,000 mg, Oral, q8h amiodarone, 400 mg, Oral, BID amLODIPine, 5 mg, Oral, Daily apixaban, 5 mg, Oral, BID asenapine, 5 mg, SubLINGual, Nightly bumetanide, 2 mg, IntraVENous, TID chlorhexidine, , Topical, Daily doxazosin, 2 mg, Oral, Daily guaiFENesin, 600 mg, Oral, BID insulin glargine, 30 Units, SubCUTAneous, q24h insulin lispro, 0-6 Units, SubCUTAneous, TID WC insulin lispro, 10 Units, SubCUTAneous, TID WC ipratropium-albuterol, 3 mL, Nebulization, TID Lidocaine, 1 patch, Topical, Daily metoprolol tartrate, 50 mg, Oral, BID pantoprazole, 40 mg, Oral, qAM AC polyethylene glycol (PEG) 3350, 17 g, Oral, Daily potassium chloride CR, 40 mEq, Oral, Daily senna-docusate sodium, 2 tablet, Oral, Nightly sodium chloride 0.9%, 5-40 mL, IntraCATHeter, q8h [2] [3] PRN medications: calcium gluconate, dextrose, dextrose, glucagon (rDNA), glucose, ipratropium-albuterol, magnesium hydroxide, magnesium sulfate OR magnesium sulfate, melatonin, naloxone, ondansetron ODT OR ondansetron, oxyCODONE OR oxyCODONE, potassium chloride OR potassium chloride OR potassium chloride, potassium chloride CR, sodium chloride 0.9% [4] Past Medical History: Diagnosis Date Alcohol abuse Aneurysm (HCC) Atrial fibrillation (HCC) Chronic bronchitis (HCC) CVA (cerebral vascular accident) (HCC) about 14 years ago per pt GERD (gastroesophageal reflux disease) Hypertension Nicotine abuse SONIA (obstructive sleep apnea) does not use cpap Paroxysmal supraventricular tachycardia (HCC) Shortness of breath [5] Past Surgical History: Procedure Laterality Date CARDIAC CATHETERIZATION N/A 06/08/2024 Performed by Joe Timmons MD at [facility] Cardiac Cath/EP Lab CHOLECYSTECTOMY 2015 KIDNEY STONE SURGERY LUMBAR DISCECTOMY NEPHRECTOMY Right 1998 [6] Allergies Allergen Reactions Penicillins Hives Other Reaction(s): GI upset, hives Hives or GI upset-patient unsure Aspirin Hives Other Reaction(s): GI Upset, GI upset, hives [7] Family History Problem Relation Name Age of Onset Coronary artery disease Mother Heart attack Mother Coronary artery disease Father Heart attack Father [8] Social History Tobacco Use Smoking status: Former Average packs/day: 1 pack/day for 18.0 years (18.0 ttl pk-yrs) Types: Cigarettes Start date: 2004 Smokeless tobacco: Never Vaping Use Vaping status: Never Used Substance Use Topics Alcohol use: Not Currently Comment: holidays/special occasions Drug use: Yes Frequency: 14.0 times per week Types: Marijuana Comment: smoking * Anay Johnson PTA - 08/12/2024 9:42 AM EDT Images from the original note were not included. PHYSICAL THERAPY [facility] Treatment Note Name/MRN: Erickson Riggs ([id number]) Date of : 1960 Age: 64 y.o. Room/Bed: T1-118/T1-118 A Discharge Recommendation: Continue to assess pending progress (LTACH vs. SNF depending on progress and medical needs) Other: TBD - has FWW and WC Assessment Pt requires min assist for transfers and ambulation. SpO2 down to 86% after ambulation, but recovered quickly. Verbal cues for sternal precautions and deep breathing. No PT goals met this session. Recommend LTACH vs. SNF at discharge. Subjective Pt is sitting up in the chair, agrees to PT. Pain: [place] Pain Ratin = Hurts a little bit Pain Location: chest/incision Medical Precautions: No active isolations Proper PPE donned/doffed in accordance with facility standards. Fall Risk: Nelson Fall Risk Score: 45 (High Risk) Precautions/Restrictions: Sternal Precautions: No lifting greater than 10 lbs. Ok for modified UE precautions using Keep Your Move in the Tube technique Lines/Drains/Airways: high flow O2 Skin care precautions Overall Cognitive Status: Exceptions - Problem solving: assistance required to correct errors made - Insights: decreased awareness of deficits Overall Orientation Status: Oriented to Place and Oriented to Person Family/Caregiver Present: none Objective Transfers/Mobility Sit to stand: Min Assist Stand to sit: Min Assist Toilet: Min Assist From chair and toilet Verbal cues for sternal precaution compliance Ambulation Ambulation 1 Assistive device(s) used: None Assist level: Min Assist Distance (ft): 10 ft x 2 (to and from bathroom) On O2 Balance During Session: Static stand with min assist x 1 Exercises Exercises Hip Flexion: BLE seated marching x10 reps Hip Abduction: x 10 Knee Long Arc Quad: BLE x10 reps Ankle Pumps: BLE x10 reps Upper Extremity: P&C exercises 1-9 x 6 reps each Plan Continue acute PT per plan of care. Safety/Education Safety Safety Devices in place: All fall risk precautions in place, call light within reach, left in chair, nurse notified, and no alarms engaged upon entry Restraints: No Education Education Given To: patient Education Provided: PT Role, PT Goals, Gait Training, Plan of Care, Precautions, Transfer Training,and Discharge Recommendations Education Method: Verbal Barriers to Learning: None Education Outcome: Verbalized Understanding and Continued Education Needed Outcome Measures AM-PAC AM-PAC Inpatient Mobility Raw Score (No Stairs) : 15 JH-HLM JH-HLM Score: Walked 10 steps or more (i.e. walked to restroom) Goals Patient Stated Goal: to go home Encounter Problems Encounter Problems (Active) Cardiac Patient will perform bed mobility with modified independence in order to improve independence and prepare for out of bed mobility. (Not Addressed) Start: 08/04/24 Expected End: 09/01/24 Patient will complete sit to stand transfer with modified independence to no assistive device in order to improve safety and prepare for out of bed mobility. (Progressing) Start: 08/04/24 Expected End: 09/01/24 Patient will ambulate 350 feet or ambulate 5 minutes with modified independence with RPE of 14 or lower. (Progressing) Start: 08/04/24 Expected End: 09/01/24 Patient will ascend and descend 5 stairs with supervision rail for balance only. (Not Addressed) Start: 08/04/24 Expected End: 09/01/24 Patient will be independent with P&C exercises. (Progressing) Start: 08/04/24 Expected End: 09/01/24 Patient will be independent with managing secretions and home walking program. (Progressing) Start: 08/04/24 Expected End: 09/01/24 Therapy Time Individual Co-treatment Time In 0835 Time Out 0901 Minutes 26 Timed Code Treatment Minutes: (GT, TP) Anay Johnson, STEAM LOCOMOTIVE FIRER/FIREMAN Cosigned by Melissa Allen, PT at 08/15/2024 7:24 AM EDT * Keesha Jessica, COMMERCIAL PEST CONTROL REPRESENTATIVE - PLUMBING MANAGER - 08/12/2024 6:37 AM EDT Images from the original note were not included. Cardiothoracic Surgery/[facility] Progress Note PATIENT NAME: Erickson Riggs DATE: 08/12/24 HPI: 64 yo male with PMH of HTN, aortic aneurysm, afib, cardiomyopathy, SONIA, former tobacco use, marijuana use, and solitary kidney. Pt follows with Cardiology who ordered an annual CTA chest which was completed on 04/26/24 and showed ascending thoracic aorta measures up to 5.2 cm. Previous CTA chest completed on 04/03/23 showed dilated ascending aorta measuring 4.7 cm. He was referred to Dr. Solano as an OP. He admits to being sedentary most of the time, washing dishes wears him out. Surgery/Procedure: 08/03/24: s/p valve sparing aortic root and ascending aorta replacement with 30mm Cardioroot graft, Left atrial appendage exlusion with 40mm Atriclip, ENRIQUE with Dr. Solano Interval History: 08/12/24, POD# 9: VSS, afebrile, NSR on tele. Continues to have high O2 requirements. On Heated HFNC 55%, 50 L/min. He did work with PT today and walked in the room. He is more alert and cooperative today. Cr- 1.27 (1.24, 1.52, 1.62) Review of Systems Constitutional: Positive for activity change, appetite change and fatigue. Negative for diaphoresisand fever. Respiratory: Positive for cough and shortness of breath. Negative for wheezing. Cardiovascular: Positive for leg swelling. Negative for chest pain and palpitations. Gastrointestinal: Negative for abdominal distention, abdominal pain, nausea and vomiting. Skin: Negative for color change, pallor and rash. Objective: Last BM Date: 08/10/24 (per pt multiple BMs) Vitals: BP: 132/90, MAP (mmHg): 100, BP Method: Automatic Heart Rate: 76 Resp: 18 Temp: 36.8 C (98.2 F), Temp Source: Temporal BMI (Calculated): 45.61 CXR: BMP: Recent Labs 08/10/24 03008/10/24222208/11/2421408/11/24 1424 08/11/24 19508/12/24 0449 NA 141 143 -- 141 141 -- K 3.7 3.4* 3.3* 3.6 3.5 -- CL 95* 95* -- 94* 96* -- CO2 32* 35* -- 39* 35* -- BUN 72* 63* -- 52* 48* -- CREATININE 1.62* 1.52* -- 1.24 1.27* -- CALCIUM 9.2 9.7 -- 9.6 9.6 -- MG 2.3 -- 2.2 -- -- 2.1 CBC: Recent Labs 08/10/2430108/11/2421408/12/24 0449 WBC 12.1* 12.5* 12.5* HGB 11.5 10.6* 10.6* 11.0* HCT 32.6* 32.7* 34.6* PLT 226 248 224 MCV 89.8 90.3 92.0 RDW 14.3 14.4 14.6 INR: No results for input(s): "INR" in the last 72 hours. Physical Exam Vitals reviewed. Constitutional: Comments: Heated HFNC Cardiovascular: Rate and Rhythm: Normal rate and regular rhythm. Pulses: Normal pulses. Heart sounds: No murmur heard. Pulmonary: Effort: Pulmonary effort is normal. No respiratory distress. Breath sounds: Rhonchi present. No wheezing or rales. Comments: On HFNC this AM, NIV overnight. Abdominal: General: There is distension. Palpations: Abdomen is soft. Tenderness: There is no abdominal tenderness. Genitourinary: Comments: External catheter. Musculoskeletal: General: Swelling present. Right lower le+ Edema present. Left lower le+ Edema present. Skin: General: Skin is warm and dry. Comments: Surgical incisions well approximated, no redness, warmth or drainage. Neurological: General: No focal deficit present. Mental Status: He is alert. Psychiatric: Mood and Affect: Mood normal. Behavior: Behavior normal. Behavior is cooperative. Assessment: Aortic aneurysm s/p valve sparing aortic root replacement Afib Cardiomyopathy HTN SONIA S/p nephrectomy d/t tumor Former smoker Marijuana smoker Hx ischemic stroke Post operative Pulm Management: Normal Post-operative Course Post-operative Atrial Fibrillation: [x]Yes [] No Acute blood loss anemia/consumptive thrombocytopenia Plan: Patient status: ICU Medications: BB- Metoprolol 50mg BID Amio 400mg PO BID Eliquis d/t intermittent Afib Bumex 2mg IV TID Asenapine HS for sleep Home meds: Cardura, Amlodipine (10mg home dose) Bowel regimen: senna, miralax GI prophy: PO protonix DVT prophy:TEDs, SCDs, and Patient on OAC/NOAC Interventions: POCUS for possible thoracentesis Can d/c IJ if able to get extended dwelling cath Pulmonary hygiene: IS and Acapella Consults: Endocrine following for insulin needs PT/OT: PT: Continue to assess pending progress (LTACH vs. SNF depending on progress and medical needs) OT: LTACH (LTACH- Pending approval of OTR/L d/t change in REC from IPR.) TCC/Discharge Planning TBD- possibly LTACH d/t O2 requirements Central Line: [x]Yes [] No Arterial Line: []Yes [x] No Iyer: []Yes [x] No Restraints: []Yes [x] No Patient discussed and plan of day developed from multidisciplinary rounds between Cardiothoracic Surgery (Cardiothoracic Surgeon, ENMA) and Critical Care Attending Critical Care time spent 36 minutes. The time involved in the performance of this care was exclusive of separately billable procedures, teaching time and treating other patients. The time was spent personally by myself for the following activities: examination of the patient, ordering and/or performing treatment, reviewing the laboratory and radiographic studies, and if applicable, ventilator management and blood gas interpretation. Cardiac Core Medications: Not indicated due to type of surgery EF: 74% (07/04/24) Blood Conservation: None noted in post-operative period Re Recording Mixer: Dr. Bragg Cosigned by Bienvenido Rodriguez MD at 08/12/2024 5:36 PM EDT * Carmina Denny RCP - 08/11/2024 11:40 PM EDT Refusing to wear NIV overnight tonight. Resting on HHFNC 75% 55L. Sats 95% * Melissa Allen, PT - 08/11/2024 3:29 PM EDT Images from the original note were not included. PHYSICAL THERAPY [facility] Treatment Note Name/MRN: Erickson Riggs ([id number]) Date of : 1960 Age: 64 y.o. Room/Bed: T1-118/T1-118 A Discharge Recommendation: Continue to assess pending progress (LTACH vs SNF) Other: TBD - has FWW and WC Assessment Patient remains limited by dyspnea and decreased activity tolerance. Patient participated in seatedBLE exercises. O2 sats down to 85% on high flow O2, edu on pursed-lip breathing, O2 back up to 90%.RN informed, deferred standing due to decreased O2 sats. Recommend LTACH vs SNF at discharge. Subjective Patient up in chair upon entry, agreeable to therapy. Pain: Pt denies any current pain. Medical Precautions: No active isolations Proper PPE donned/doffed in accordance with facility standards. Fall Risk: Nelson Fall Risk Score: 45 (High Risk) Precautions/Restrictions: Sternal Precautions: No lifting greater than 10 lbs. Ok for modified UE precautions using Keep Your Move in the Tube technique Lines/Drains/Airways: high flow O2 Skin care precautions Overall Cognitive Status: Exceptions - Arousal/alertness: appropriate responses to stimuli - Safety judgement: decreased awareness of need for assistance Family/Caregiver Present: child(rere) Objective Exercises Exercises Hip Flexion: BLE seated marching x10 reps Knee Long Arc Quad: BLE x10 reps Ankle Pumps: BLE x10 reps Comments: Patient required cues for slow controlled movements and needed rest breaks between each exercise. O2 sats down to 85% on high flow O2, edu on pursed-lip breathing, O2 back up to 90% Other exercises Other exercises?: No Plan Continue acute PT per plan of care. Safety/Education Safety Safety Devices in place: call light within reach, left in chair, nurse notified, and no alarms engaged upon entry Restraints: No Education Education Given To: patient Education Provided: PT Goals, Plan of Care, Home Exercise Program, Discharge Recommendations, and Breathing Techniques Education Method: Verbal Barriers to Learning: None Education Outcome: Verbalized Understanding Outcome Measures AM-PAC AM-PAC Inpatient Mobility Raw Score (No Stairs) : 15 JH-HLM JH-HLM Score: Sat at edge of bed Goals Patient Stated Goal: to go home Encounter Problems Encounter Problems (Active) Cardiac Patient will perform bed mobility with modified independence in order to improve independence and prepare for out of bed mobility. (Not Addressed) Start: 08/04/24 Expected End: 09/01/24 Patient will complete sit to stand transfer with modified independence to no assistive device in order to improve safety and prepare for out of bed mobility. (Not Addressed) Start: 08/04/24 Expected End: 09/01/24 Patient will ambulate 350 feet or ambulate 5 minutes with modified independence with RPE of 14 or lower. (Not Addressed) Start: 08/04/24 Expected End: 09/01/24 Patient will ascend and descend 5 stairs with supervision rail for balance only. (Not Addressed) Start: 08/04/24 Expected End: 09/01/24 Patient will be independent with P&C exercises. (Not Addressed) Start: 08/04/24 Expected End: 09/01/24 Patient will be independent with managing secretions and home walking program. (Not Addressed) Start: 08/04/24 Expected End: 09/01/24 Therapy Time Individual Co-treatment Time In 1410 Time Out 1425 Minutes 15 Timed Code Treatment Minutes: 15 Minutes (TP) Melissa Allen PT * Latisha Erickson - 08/11/2024 11:55 AM EDT Spiritual Care Note [facility] Palliative Care Patient Name:Erickson Riggs Chief Complaint: No chief complaint on file. Reason for visit: Follow Up Services Provided To:patient and family Background and visit note: Follow up visit with patient. His daughter was by the bedside. Informed the patient I am still waiting to hear from the buddhist. Explained they may have not have anyone to help. He was ok. He commented, "That he has focus on health." There have been some changes. Follow up PRN. Is there spiritual distress? NO Comment: Interventions: Follow up for informatiion, spiritual support provided, and promotion of health. Care Plan: PRN. Follow Up: PRN. Debriefed: with tube station attendant team. Latisha Erickson 08/11/24 * ABHI Post - 08/11/2024 10:35 AM EDT Images from the original note were not included. OCCUPATIONAL THERAPY [facility] Treatment Note Name/MRN: Erickson Riggs ([id number]) Date of : 1960 Age: 64 y.o. Room/Bed: T1-118/T1-118 A Discharge Recommendation: LTACH (LTACH- Pending approval of OTR/L d/t change in REC from IPR.) Equipment Needed: (Continue to assess pending progress) Prior Level of Function Prior Level of ADL Function: Independent Prior Level of Mobility: Independent; Device: None Prior Level of Transfers: Independent Assessment Ray is slowly progressing towards OT goals- however, none met this TX session. Currently, Pt required MIN A for STS & stand step transfer with increased time to initiate and complete all tasks secondary to SOB. Pt required MIN A for dynamic standing balance and LB ADL with trial of AE with focus on energy conservation throughout d/t SOB with minimal physical activity. Pt is most limited by decreased respiratory endurance, decreased standing balance, and global weakness hindering indep and safety with functional tasks. Pt is below functional baseline and is unsafe to return home at this time. Recommending LTACH upon discharge in order to achieve highest level of function. Subjective Pt reclined in chair with sitter present. RN approved of therapy. Pt cooperative and agreeable to OT TX. Pt wearing NIV upon entry on 15 HFNC- o2 level 96% at rest. Pt stated "I think my balance is pretty good it's just my breathing that's the trouble!" A & O X 4. Pt reported pain at incision site of sternum- however, did not quantify level. Pt reclined in chair at the EOS. Call light placed within reach and all needs met. Pain: [place] Pain Ratin = Hurts a little bit Pain Location: incision site of sternum Medical Precautions: No active isolations Proper PPE donned/doffed in accordance with facility standards. Fall Risk: Nelson Fall Risk Score: 45 (High Risk) Precautions/Restrictions: Sternal Precautions: No lifting greater than 10 lbs. Ok for modified UE precautions using Keep Your Move in the Tube technique Family/Caregiver Present: Sitter present Objective ADLs LE Dressing: Min Assist- Pt required MIN A to jefe gripper sock with use of sock aid. Pt required CGA for doffing gripper socks with hand under hand assist for improved technique + verbal and visual cues for PLB technique throughout d/t SOBOE. Adaptive Equipment: Dye Stand Loader and sock aid 2/2 trials with physical assist for improved technique d/tdecreased FMC threading sock into sock aid and difficulty adjust seam prior to donning task. Bed Mobility Pt up in chair upon arrival Transfers/Mobility Sit to stand: Min Assist Stand to sit: Contact Guard Stand step: Min Assist- Pt instructed on taking 4 forward, backward and lateral steps with tactile cues for improved wt shifting laterally and increased LLE ext when taking steps back towards chair and PLB technique throughout task- required seated rest period after approx 2.5 minutes. Sitting balance: Contact Guard Standing balance: Min Assist- Pt required MIN A for dynamic standing balance with focus on functional reaching of MOE/L's hands to tap in multiple directions and heights with physical assist for improved wt shifting when crossing midline and PLB technique throughout. Device(s) used: Used therapist for support Exercise Comment: Standing HIP hinge 5 reps in standing with tactile cues for increased SHANTA prior to exercise and PLB techniques throughout- o2: 91% on 15 L of HFNC- recovery time 1 minute to reach 94% in order to increase ROM, strength and endurance for increased indep with fxl transfers/ standing balance. Cognition - Following commands: follows one step commands with repetition - Safety judgement: decreased awareness of need for assistance - Problem solving: assistance required to generate solutions - Insights: decreased awareness of deficits Plan Continue acute OT per plan of care. Safety/Education Safety Safety Devices in place: All fall risk precautions in place, call light within reach, left in chair, chair alarm in place, gait belt, and nurse notified Restraints: No Education Education Given To: patient Education Provided: OT Role, Plan of Care, Home Exercise Program, Precautions, ADL Adaptive Strategies, Transfer Training, Energy Conservation, Orientation, Discharge Recommendations, Benefits of Increasing Activity, and Breathing Techniques Education Method: Verbal, Demonstration, and Teach Back Barriers to Learning: Lack of Family/Social Support Education Outcome: Verbalized Understanding and Continued Education Needed AM-PAC AM-PAC Inpatient Daily Activity Raw Score: 15 ADL Inpatient CMS G-Code Modifier: CK Goals Patient Stated Goal: pain control Encounter Problems Encounter Problems (Active) Balance Patient will maintain static standing balance for 3 minutes with modified independence in order to demonstrate decreased risk of falling and in prep for ADLs. (Slowly Progressing) Start: 08/05/24 Expected End: 09/02/24 Dressings Lower Extremities Patient will dress lower body SUP with AE prn. (Slowly Progressing) Start: 08/05/24 Expected End: 09/02/24 Instrumental Activities of Daily Living Patient will implement energy conservation techniques during ADLs with no cues. (Slowly Progressing) Start: 08/05/24 Expected End: 09/02/24 Toileting Patient will complete toileting tasks with SUP. (Not Addressed) Start: 08/05/24 Expected End: 09/02/24 Transfers Patient will complete functional transfer with least restrictive device with supervision in order to prepare for ambulation. (Progressing) Start: 08/05/24 Expected End: 09/02/24 Therapy Time Individual Co-treatment Time In 1005 Time Out 1028 Minutes 23 Timed Code Treatment Minutes: 23 Minutes (1-ADL; 1- FUNCT ACT) ABHI Post Cosigned by Inder Hall OT at 08/11/2024 10:57 AM EDT * Franky Yee PA-C - 08/11/2024 9:30 AM EDT Department of Internal Medicine Division of Endocrinology, Diabetes, & Metabolism Endocrinology Note Patient Name: Erickson Riggs : 1960 AGE: 64 y.o. 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 PLAN: BGL elevated Increase Lantus 30 units qam Increase Humalog 01/06/10 tid meals -please hold if NPO or not eating Humalog low sliding scale 3 times daily ICU goal <180 GMF goal <150 POCT BG ACHS Hypoglycemia management per protocol Carb controlled diet ANTICIPATED ENDOCRINE HOME GOING RECOMMENDATIONS: Optimized for Discharge from Endocrine standpoint: No Home Going Endocrine Rx Recommendations-- Per Meds to beds has no prescription drug coverage Consider metformin and possibly relion [employer] pens homegoing Could benefit from sglt2 vs glp1 -although will likely not be covered Glucometer, lancets, test trips, alcohol pads Outpt Follow Up-- PCP SUBJECTIVE/HPI: CHIEF COMPLAINT: No chief complaint on file. S/p aortic root repair A1c elevated, did not see any hx of dm2 or diabetes meds in chart review New onset DM2, states family history mother has DM2 he knows a little bit about diabetes Discussed A1c 08/11 Increasing trends, bgl below Will increase insulins today On PAP during visit (using at night and during naps) Awake, sitting up in bed, able to talk Denies N/V/D abd pain Chest tube removed States his diet is improving but still 1/2 of what he normally eats 08/10 Bgl below- remain stable-slightly tightly controlled lower insulins for today He is awake, takative but confused On oxygen -hi [place] Is eating pretty well No nv noted Spoke with nursing team in room No dc yet Type of DM: 2 Onset of DM: not clear Home DM Medication Regimen: none DM control (last A1c/glucose data): Glucose Date/Time Value Ref Range Status 08/11/2024 08:13 AM 218 (H) 70 - 100 mg/dL Final 08/10/2024 04:46 PM 141 (H) 70 - 100 mg/dL Final 08/10/2024 01:53 PM 168 (H) 70 - 100 mg/dL Final 08/10/2024 11:24 AM 155 (H) 70 - 100 mg/dL Final 08/10/2024 08:24 AM 136 (H) 70 - 100 mg/dL Final 08/09/2024 09:08 PM 91 70 - 100 mg/dL Final Review of Systems ROS negative except for those mentioned in HPI. OBJECTIVE: Vitals: 08/11/24 0500 08/11/24 0600 08/11/24 0800 08/11/24 0801 BP: 116/58 124/57 128/84 BP Location: Patient Position: Pulse: (!) 127 115 (!) 128 (!) 121 Resp: Temp: TempSrc: SpO2: 97% 98% 95% 95% Weight: Height: PF: Physical Exam Vitals reviewed. Constitutional: General: He is not in acute distress. Appearance: He is obese. He is not toxic-appearing. HENT: Head: Normocephalic and atraumatic. Nose: Nose normal. Mouth/Throat: Mouth: Mucous membranes are moist. Pharynx: Oropharynx is clear. Cardiovascular: Rate and Rhythm: Normal rate. Pulmonary: Effort: Pulmonary effort is normal. Skin: General: Skin is warm and dry. Neurological: General: No focal deficit present. Mental Status: He is alert and oriented to person, place, and time. 24 hour intake/output: Intake/Output Summary (Last 24 hours) at 08/11/2024 0931 Last data filed at 08/11/2024 0800 Gross per 24 hour Intake 240 ml Output 1915 ml Net -1675 ml Diet: Adult diet Regular; 5 carb choices (75 gm/meal) Medications (as per EMR): HomeMeds: Current Outpatient Medications Medication Instructions amLODIPine (NORVASC) 10 mg, Daily doxazosin (Cardura) 2 MG tablet 1 tablet, Nightly metoprolol tartrate (LOPRESSOR) 25 mg, 2 times daily Scheduled Meds:Scheduled Meds[1] Continuous Infusions:Continuous Meds[2] PRN Meds:PRN Meds[3] Diagnostic Workup: I reviewed pertinent Laboratory results, Radiographic results, and Other Clinical Notes at the timeof today's encounter. Labs: No components found for: "LABA1C" No components found for: "EAG" Lab Results Component Value Date NA 143 08/10/2024 K 3.3 (L) 08/11/2024 CL 95 (L) 08/10/2024 CO2 35 (H) 08/10/2024 BUN 63 (H) 08/10/2024 CREATININE 1.52 (H) 08/10/2024 GLUCOSE 169 (H) 08/10/2024 CALCIUM 9.7 08/10/2024 No results found for: "CHLPL", "CHOL" No results found for: "TRIG" No results found for: "HDL" No results found for: "LDLCALC" No results found for: "VLDL" No results found for: "CHOLHDLRATIO" No results found for: "RYXV16ZBO" No results found for: "TSH", "P9IOWOU", "X1HSVAK", "THYROIDAB" Radiology reportsas per the Radiologist Radiology: Transesophageal echocardiogram (ENRIQUE) with contrast and 3D PRN Result Date: 08/09/2024 Left Ventricle: Left ventricle size is normal. Mildly increased wall thickness. Normal left ventricular systolic function. The EF by visual approximation is 60%. Normal wall motion. Right Ventricle: Right ventricle is mildly dilated. Catheter present in the right ventricle. Mildly reduced systolic function. Aortic Valve: Trileaflet. No cusp thickening. No cusp calcification. Mild (1+) regurgitation with multiple jets. Left Atrium: Normal appendage flow velocity. No left atrial appendage thrombus noted. No left atrial mass present. Interatrial Septum: PFO present with a left to right shunt viewable by color Doppler. Aorta: Normal sized aortic arch and descending aorta. Severely dilated sinuses of Valsalva. Sinuses of Valsalva diameter is 5.0 cm. Moderately dilated ascending aorta. Ao ascending diameter is 4.6 cm. Post-image: S/p valve sparing aortic root and ascending aorta replacement with 30 mm Cardioroot graft and 40 mm EMMA clip: No change in LV or RV function. Mild-moderate MV regurgitation. Normally functioning aortic valve without regurgitation; remeasured sinuses of Valsalva 3.6 cm. Thoracic aorta intact within ENRIQUE imaging limits, no dissection. Complete EMMA occlusion by clip. ECG 12 lead Atrial fibrillation Right bundle branch block Electronically Signed On 08-05-2024 11:18:11 EDT by Benjamin Haynes POCT glucose meter Result Date: 08/04/2024 Performed by: [employer] [facility], [address] [place] [address] CLIA ID: [id number] POCT glucose meter Result Date: 08/04/2024 Performed by: [employer] [place] [facility], [address] [place] [address] CLIA ID: [id number] POCT glucose meter Result Date: 08/04/2024 Performed by: [employer] [place] [facility], [address] [place] [address] CLIA ID: [id number] XR chest 1 view Result Date: 08/04/2024 Patient Name: ERICKSON RIGGS : 1960 [facility]#: [id number] Exam Date/Time: 08/04/2024 20:10 Procedure: XR CHEST 1 VIEW Ordering Provider: SOLANO RICHARD Reason For Exam: DYSPNEA INDICATION: Aneurysm of the ascending aorta without rupture. VIEWS: Chest portable-2 images COMPARISON: 08/04/2024 at 5:34 TIME: 08/04/2024 at 20:12 FINDINGS: A right IJ vascular catheter sheath remains with interval removal of the [place]-Brian catheter. The trachea is midline. The cardiac silhouette is enlarged. Median sternotomy wires are present. A left atrial appendage clamp is present. Bibasilar opacities are present with blunting of the costophrenic angles. 1. Bibasilar opacities which may reflect atelectasis and/or small pleural effusions. 2. Cardiomegaly. Report Dictated on Electronically Signed By: Keesha Seals MD Electronically Signed Date/Time: 08/04/2024 8:15 PM EDT POCT glucose meter Result Date: 08/04/2024 Performed by: [facility], [address] [place] [address] [place] [address] CLIA ID: [id number] POCT glucose meter Result Date: 08/04/2024 Performed by: [facility] [place] [facility], [address] [place], [place] [address] [address] CLIA ID: [id number] POCT glucose meter Result Date: 08/04/2024 Performed by: [facility] [place] [facility], [address] [place], [place] [address] [address] CLIA ID: [id number] POCT glucose meter Result Date: 08/04/2024 Performed by: [facility] [place] [facility], [address] [place], [place] [address] [address] CLIA ID: [id number] POCT glucose meter Result Date: 08/04/2024 Performed by: [facility] [place] [facility], [address] [place], [place] [address] [address] CLIA ID: [id number] POCT glucose meter Result Date: 08/04/2024 Performed by: [facility] [place] [facility], [address] [place], [place] [address] [address] CLIA ID: [id number] POCT glucose meter Result Date: 08/04/2024 Performed by: [facility] [place] [facility], [address] [place], [place] [address] [address] CLIA ID: [id number] ECG 12 lead Ventricular-paced rhythm Electronically Signed On 08-04-2024 13:07:15 EDT by Michael Patricia POCT glucose meter Result Date: 08/04/2024 Performed by: [facility], [address] [place], [place] [address] [address] CLIA ID: [id number] POCT glucose meter Result Date: 08/04/2024 Performed by: [facility] [place] [facility], [address] [place] [address] [place] [address] CLIA ID: [id number] ECG 12 lead Sinus rhythm or ectopic atrial rhythm with prolonged MT iintrerval Right bundle branch block Pericarditis Electronically Signed On 08-04-2024 12:48:47 EDT by Michael Patricia POCT glucose meter Result Date: 08/04/2024 Performed by: [facility], [address] [place] [address] CLIA ID: [id number] POCT glucose meter Result Date: 08/04/2024 Performed by: [employer] [place] [facility], [address] [place] [address] CLIA ID: [id number] POCT glucose meter Result Date: 08/04/2024 Performed by: [employer] [facility], [address] [place] [address] CLIA ID: [id number] ECG 12 lead Sinus rhythm Atrial premature complexes frequent Right bundle branch block Widespread ST elevation consistent with pericarditis Electronically Signed On 08-04-2024 08:47:13 EDT by Michael Patricia POCT glucose meter Result Date: 08/04/2024 Performed by: [employer] [facility], [address] [place] [address] CLIA ID: [id number] XR chest 1 view Result Date: 08/04/2024 [facility] 1960 [id number] Exam Date/Time: 08/04/2024 05:32 Procedure: XR CHEST 1 VIEW Ordering Provider: NUNEZ KYLE Reason For Exam: Shortness of breath AP CHEST X-RAY CLINICAL INDICATION: Shortness of breath TECHNIQUE: AP portable x- ray of the chest. COMPARISON: August 03, 2024 FINDINGS: The study is limited due to patient rotation. Midline sternotomy wires are noted. Lines/Tubes: Right-sided [place]-Brian catheter is noted with distal tip level the main pulmonary artery. Endotracheal tube and nasogastric tubes have been removed. Mediastinal drain is noted. Heart/Mediastinum: Cardiac silhouette is enlarged. Left atrial appendage clip is noted. Lungs: Persistent left basilar opacity is again noted with blunting left costophrenic angle. Pulmonary vascular congestion is again noted similar to previous exam. Bones: Unremarkable Interval removal of endotracheal and nasogastric tubes. Otherwise no significant interval change Report Dictated on Electronically Signed By: Benjamin Bucio MD Electronically Signed Date/Time: 08/04/2024 8:04 AM EDT POCT glucose meter Result Date: 08/04/2024 Performed by: [employer] [facility], [address] [place], [place] [address] [address] CLIA ID: [id number] POCT glucose meter Result Date: 08/04/2024 Performed by: [employer] [facility], [address] [place] [address], [place] [address] CLIA ID: [id number] POCT glucose meter Result Date: 08/04/2024 Performed by: [employer] [place] [facility], [address] [place] [address], [place] [address] CLIA ID: [id number] POCT glucose meter Result Date: 08/04/2024 Performed by: [employer] [place] [facility], [address] [place] [address] [place] [address] CLIA ID: [id number] POCT glucose meter Result Date: 08/04/2024 Performed by: [employer], [address] [place], [place] [address] [address] CLIA ID: [id number] POCT glucose meter Result Date: 08/04/2024 Performed by: [employer] [facility], [address] [place] [address], [place] [address] CLIA ID: [id number] POCT glucose meter Result Date: 08/04/2024 Performed by: [employer] [facility], [address] [place] [address], [place] [address] CLIA ID: [id number] POCT glucose meter Result Date: 08/04/2024 Performed by: [employer] [facility], [address] [place], [place] [address] [address] CLIA ID: [id number] POCT glucose meter Result Date: 08/03/2024 Performed by: [employer] [facility], [address] [place] [address], [place] [address] CLIA ID: [id number] POCT glucose meter Result Date: 08/03/2024 Performed by: [employer] [facility], [address] [place] [address], [place] [address] CLIA ID: [id number] POCT glucose meter Result Date: 08/03/2024 Performed by: [facility] [place] [facility], [address] [place] [address], [place] [address] CLIA ID: [id number] POCT glucose meter Result Date: 08/03/2024 Performed by: [facility] [place] [facility], [address] [place] [address], [place] [address] CLIA ID: [id number] POCT glucose meter Result Date: 08/03/2024 Performed by: [facility] [place] [facility], [address] [place] [address], [place] [address] CLIA ID: [id number] POCT glucose meter Result Date: 08/03/2024 Performed by: [facility] [place] [facility], [address] [place] [address], [place] [address] CLIA ID: [id number] POCT glucose meter Result Date: 08/03/2024 Performed by: [facility] [place] [facility], [address] [place] [address], [place] [address] CLIA ID: [id number] POCT glucose meter Result Date: 08/03/2024 Performed by: [facility], [address] [place] [address], [place] [address] CLIA ID: [id number] POCT glucose meter Result Date: 08/03/2024 Performed by: [facility] [place] [facility], [address] [place] [address], [place] [address] CLIA ID: [id number] POCT glucose meter Result Date: 08/03/2024 Performed by: [facility], [address] [place] [address], [place] [address] CLIA ID: [id number] XR chest 1 view Result Date: 08/03/2024 Patient Name: ERICKSON RIGGS : 1960 [facility]#: [id number] Exam Date/Time: 08/03/2024 15:19 Procedure: XR CHEST 1 VIEW Ordering Provider: NUNEZ KYLE Reason For Exam: Post op open heart surgery; ETT placement PORTABLE CHEST X-RAY CLINICAL INDICATION: Status post open heart surgery, endotracheal tube placement A portable frontal view of the chest was obtained. COMPARISON: 08/03/2024 at 1455 FINDINGS: The heart is enlarged. Sternotomy wires and left atrial appendage clip are noted. Endotracheal tube appears to terminate approximately 4.5 cm above thecarina. Feeding tube terminates below the level of the diaphragm. The tip is not seen. Right jugular [place]-Brian catheter terminates in the expected location of the right pulmonary artery. Mediastinal drain is noted. There is pulmonary vascular congestion with left retrocardiac atelectasis and likelysmall left pleural effusion. No pneumothorax is seen. There are degenerative changes of the spine. Lines and tubes as above. Pulmonary vascular congestion. Small left pleural effusion. No evidence of pneumothorax. Report Dictated on Electronically Signed By: Aiden Chinchilla MD Electronically Signed Date/Time: 08/03/2024 3:55 PM EDT XR chest 1 view Result Date: 08/03/2024 [facility] 1960 [id number] Exam Date/Time: 08/03/2024 14:31 Procedure: XR CHEST 1 VIEW Ordering Provider: SOLANO RICHARD Reason For Exam: FOREIGN BODY; Confirm Needle Count AP CHEST X-RAY CLINICAL INDICATION: FOREIGN BODY;Confirm Needle Count TECHNIQUE: AP portable x-ray of the chest. COMPARISON: None FINDINGS: Intraoperative radiographs of the chest were obtained for incorrect instrument count. The patient has undergone open heart surgery with sternal wires and mediastinal drain. There is also a [place]-Brian catheter,ETT and NG tube. An atrial appendage clip is present. No radiopaque foreign body or instrument is id entified. The cardiomediastinal silhouette is enlarged. No evidence of a retained surgical instrument. Discussed with OR team at the time of exam completion. Report Dictated on Electronically Signed By: Adrian Alvarez MD Electronically Signed Date/Time: 08/03/2024 2:53 PM EDT History/Other: Past Medical History: Medical History[4] Past Surgical History: Surgical History[5] Allergy(ies): Allergies[6] Family History: Family History[7] Social History: Social History[8] Portions of the information within this encounter were entered using an electronic dictation system. Best attempts were made to edit/proofread the information prior to note completion. Despite the review of information, some errors may remain. If there are questions related to the information contained within the note please contact the signing physician directly. I spent 35 minutes with the pt which involved coordination of care, medical evaluation, review of records, and/or counseling of the pt regarding his/her condition/disease state/prognosis on the date of this note. [1] acetaminophen, 1,000 mg, Oral, q8h amiodarone, 400 mg, Oral, BID amLODIPine, 5 mg, Oral, Daily apixaban, 5 mg, Oral, BID asenapine, 5 mg, SubLINGual, Nightly bumetanide, 2 mg, IntraVENous, TID carvedilol, 12.5 mg, Oral, BID WC chlorhexidine, , Topical, Daily doxazosin, 2 mg, Oral, Daily guaiFENesin, 600 mg, Oral, BID insulin glargine, 28 Units, SubCUTAneous, q24h insulin lispro, 0-6 Units, SubCUTAneous, TID WC insulin lispro, 8 Units, SubCUTAneous, TID WC ipratropium-albuterol, 3 mL, Nebulization, TID Lidocaine, 1 patch, Topical, Daily pantoprazole, 40 mg, Oral, qAM AC polyethylene glycol (PEG) 3350, 17 g, Oral, Daily potassium chloride CR, 40 mEq, Oral, Daily senna-docusate sodium, 2 tablet, Oral, Nightly sodium chloride 0.9%, 5-40 mL, IntraCATHeter, q8h [2] dexmedeTOMIDine, 0.1-1.5 mcg/kg/hr, Last Rate: Stopped (08/10/24 1008) [3] PRN medications: calcium gluconate, dextrose, dextrose, glucagon (rDNA), glucose, hydrALAZINE, ipratropium-albuterol, LORazepam, magnesium hydroxide, magnesium sulfate OR magnesium sulfate, melatonin, naloxone, ondansetron ODT OR ondansetron, oxyCODONE OR oxyCODONE, potassium chloride OR potassium chloride OR potassium chloride, potassium chloride CR, sodium chloride 0.9% [4] Past Medical History: Diagnosis Date Alcohol abuse Aneurysm (HCC) Atrial fibrillation (HCC) Chronic bronchitis (HCC) CVA (cerebral vascular accident) (HCC) about 14 years ago per pt GERD (gastroesophageal reflux disease) Hypertension Nicotine abuse SONIA (obstructive sleep apnea) does not use cpap Paroxysmal supraventricular tachycardia (HCC) Shortness of breath [5] Past Surgical History: Procedure Laterality Date CARDIAC CATHETERIZATION N/A 06/08/2024 Performed by Joe Timmons MD at [facility] Cardiac Cath/EP Lab CHOLECYSTECTOMY 2015 KIDNEY STONE SURGERY LUMBAR DISCECTOMY NEPHRECTOMY Right 1998 [6] Allergies Allergen Reactions Penicillins Hives Other Reaction(s): GI upset, hives Hives or GI upset-patient unsure Aspirin Hives Other Reaction(s): GI Upset, GI upset, hives [7] Family History Problem Relation Name Age of Onset Coronary artery disease Mother Heart attack Mother Coronary artery disease Father Heart attack Father [8] Social History Tobacco Use Smoking status: Former Average packs/day: 1 pack/day for 18.0 years (18.0 ttl pk-yrs) Types: Cigarettes Start date: 2004 Smokeless tobacco: Never Vaping Use Vaping status: Never Used Substance Use Topics Alcohol use: Not Currently Comment: holidays/special occasions Drug use: Yes Frequency: 14.0 times per week Types: Marijuana Comment: smoking * GARY Farrell CNP - 08/11/2024 6:10 AM EDT Images from the original note were not included. Cardiothoracic Surgery/[facility] Progress Note PATIENT NAME: Erickson Riggs DATE: 08/11/24 HPI: 64 yo male with PMH of HTN, aortic aneurysm, afib, cardiomyopathy, SONIA, former tobacco use, marijuana use, and solitary kidney. Pt follows with Cardiology who ordered an annual CTA chest which was completed on 04/26/24 and showed ascending thoracic aorta measures up to 5.2 cm. Previous CTA chest completed on 04/03/23 showed dilated ascending aorta measuring 4.7 cm. He was referred to Dr. Solano as an OP. He admits to being sedentary most of the time, washing dishes wears him out. Surgery/Procedure: 08/03/24: s/p valve sparing aortic root and ascending aorta replacement with 30mm Cardioroot graft, Left atrial appendage exlusion with 40mm Atriclip, ENRIQUE with Dr. Solano Interval History: 08/11/24, POD# 08. Afebrile, in and out of afib, BP fairly stable, on HFNC this AM and PAP overnight. Amio bolus ordered this AM. Sitting up in chair, awake and alert. Appropriate, states he feels pretty good. Objective: UO cc/24hrs: 2,095 Vitals: BP: 127/73, MAP (mmHg): 88, BP Method: Automatic Heart Rate: 87 Resp: 22 Temp: 36.6 C (97.8 F), Temp Source: Temporal BMI (Calculated): 46.99 BMP: Recent Labs 08/09/24 0026 08/09/240 08/10/24 03008/10/24 2223 08/11/24 0215 NA 134* 142 141 143 -- K 3.6 3.6 3.7 3.4* 3.3* CL 91* 95* 95* 95* -- CO2 32* 33* 32* 35* -- BUN 66* 66* 72* 63* -- CREATININE 1.48* 1.53* 1.62* 1.52* -- CALCIUM 8.9 9.1 9.2 9.7 -- MG 2.1 -- 2.3 -- 2.2 CBC: Recent Labs 08/09/24 0026 08/09/24 1122 08/10/24 0302 08/11/24 0215 WBC 10.6 -- 12.1* 12.5* HGB 9.6* < > 11.5 10.6* 10.6* HCT 29.3* -- 32.6* 32.7* PLT 179 -- 226 248 MCV 89.3 -- 89.8 90.3 RDW 13.8 -- 14.3 14.4 < > = values in this interval not displayed. INR: No results for input(s): "INR" in the last 72 hours. Physical Exam Vitals reviewed. Neck: Comments: Central line. Cardiovascular: Rate and Rhythm: Tachycardia present. Rhythm irregular. Pulses: Normal pulses. Heart sounds: No murmur heard. Pulmonary: Effort: Pulmonary effort is normal. No respiratory distress. Breath sounds: Rhonchi present. No wheezing or rales. Comments: On HFNC this AM, NIV overnight. Abdominal: General: There is distension. Palpations: Abdomen is soft. Tenderness: There is no abdominal tenderness. Genitourinary: Comments: External catheter. Musculoskeletal: General: Swelling present. Skin: General: Skin is warm and dry. Comments: Surgical incisions well approximated, no redness, warmth or drainage. Neurological: General: No focal deficit present. Mental Status: He is alert. Psychiatric: Mood and Affect: Mood normal. Behavior: Behavior normal. Assessment: Aortic aneurysm s/p valve sparing aortic root replacement Afib Cardiomyopathy HTN SONIA S/p nephrectomy d/t tumor Former smoker Marijuana smoker Hx ischemic stroke Post operative Pulm Management: Normal Post-operative Course Post-operative Atrial Fibrillation: [x]Yes [] No Acute blood loss anemia/consumptive thrombocytopenia Plan: Patient status: ICU Amio bolus ordered this AM. Amio 400mg BID. Will switch back to Metoprolol for better rate control. -Decrease amlodipine as needed to increase BB. Start Eliquis d/t intermittent afib. Cardura (home med). -5mg BID. Bumex 2mg BID. -Monitor UO and creatinine. -q12h BMP. Otherwise daily labs and CXR. Bowel regimen. Out of bed as able, progressive mobility. Wean O2 as able, goal SpO2>92%. PAP at night and during naps. PT/OT as able. GI prophy: PO protonix DVT prophy:TEDs, SCDs, and Patient on OAC/NOAC Pulmonary hygiene: IS and Acapella Consults: Endocrinology following. PT/OT: Continue to assess (08/09/24) TCC/Discharge Planning: TBD. Central Line: [x]Yes [] No Arterial Line: []Yes [x] No Iyer: []Yes [x] No Restraints: []Yes [x] No Patient discussed and plan of day developed from multidisciplinary rounds between Cardiothoracic Surgery (Cardiothoracic Surgeon, ENMA) and Critical Care Attending Critical Care time spent 15 minutes. The time involved in the performance of this care was exclusive of separately billable procedures, teaching time and treating other patients. The time was spent personally by myself for the following activities: examination of the patient, ordering and/or performing treatment, reviewing the laboratory and radiographic studies, and if applicable, ventilator management and blood gas interpretation. Cardiac Core Medications: Not indicated due to type of surgery EF: 74% (07/04/24) Blood Conservation: None noted in post-operative period Re Recording Mixer: Dr. Bragg Cosigned by Bienvenido Rodriguez MD at 08/11/2024 7:13 PM EDT * Jenny Caballero, RD - 08/10/2024 3:34 PM EDT Nutrition Assessment Type and Reason for Visit: Reassess Nutrition Recommendations/Plan: Continue 5 carb choices (75 g/meal) diet as ordered Continue ONS: Chucky BID Pt received education with [employer] and is recommended for discharge to a facility. RD added DM diet information to discharge instruction. Will continue to monitor diet education needs RD will monitor overall nutrition status and will follow weekly Malnutrition Assessment: Malnutrition Status: At risk for malnutrition (Comment) (s/p open heart surgery) Nutrition Assessment: Per chart, pt with PMH of HTN, aortic aneurysm, afib, cardiomyopathy, SONIA, former tobacco use, marijuana use, and solitary kidney. Pt follows with Cardiology who ordered an annual CTA chest which wascompleted on 04/26/24 and showed ascending thoracic aorta measures up to 5.2 cm. Previous CTA chest c ompleted on 04/03/23 showed dilated ascending aorta measuring 4.7 cm. He was referred to Dr. Solano as an OP. He admits to being sedentary most of the time, washing dishes wears him out. Pt admitted and underwent valve sparing aortic root replacement, ENRIQUE with Dr. Solano on 08/03/24. POD #7. On HFNC. Noted to be delirious and restless previously with improvement this a.m. Pt recommending LTAC vs SNF at discharge. At time of RD visit, pt is recieving care with respiratory, RN, and aide in room. Appears to be eating well at meals and consuming ONS. Weight stable/increased Estimated Daily Nutrient Needs: Energy Requirements Based On: Kcal/kg Weight Used for Energy Requirements: Sheldon Weight for Energy Calculation (kg): 80.7 kg (25-28 kcal/kg) Total Energy Requirements (kcals/day): 5010-7427 Weight Used for Protein Requirements: Sheldon Weight in Kg Used for Protein Requirements: 80.7 kg (1.2-1.5 g/kg) Estimated Total Protein (g/day): 97-121 Estimated Daily Total Fluid (ml/day): per MD Nutrition Related Findings: Teeth: Missing teeth Room Service Room Service: Assist Ladarius Scale Score: 17. Wound Type: Surgical Incision Net IO Since Admission: -640.4 mL [08/10/24 1534] Edema: RUE Edema: Trace, LUE Edema: Trace, RLE Edema: Moderate pitting, indentation subsides rapidly, LLE Edema: Moderate pitting, indentation subsides rapidly Bowel Sounds (All Quadrants): Hypoactive Abdomen Inspection: Distended, Rounded Last BM Date: 08/08/24 O2 Delivery Method: Heated high flow nasal cannula, FiO2 (%): 60 %, O2 Flow Rate (L/min): 60 L/min Labs and meds reviewed: Scheduled Meds[1] Continuous Meds[2] BMP: Recent Labs 08/08/24 0157 08/08/24 0948 08/09/24 0026 08/09/24 2110 08/10/24 0302 NA 136 < > 134* 142 141 K 4.8 < > 3.6 3.6 3.7 CL 96* < > 91* 95* 95* CO2 27 < > 32* 33* 32* BUN 64* < > 66* 66* 72* CREATININE 1.52* < > 1.48* 1.53* 1.62* GLUCOSE 101 < > 132* 85 131* CALCIUM 9.2 < > 8.9 9.1 9.2 MG 2.3 -- 2.1 -- 2.3 < > = values in this interval not displayed. Recent Labs 08/09/24 1243 08/09/24 1705 08/09/24 2108 08/10/24 0824 08/10/24 1124 08/10/24 1353 POCGLU 106* 111* 91 136* 155* 168* Lab Results Component Value Date HGBA1C 7.4 (H) 07/27/2024 Lab Results Component Value Date EFBP 74 07/04/2024 LVEFPHYS 60 08/03/2024 Current Nutrition Therapies: Adult diet Regular; 5 carb choices (75 gm/meal) Current Oral Intake Average Meal Intake: 76-100% Average Supplements Intake: 76-100% Anthropometric Measures: Height: 182.9 cm (6') Current Body Weight: 157 kg (346 lb 9 oz) (08/10) Admission Body Weight: 154 kg (339 lb) (08/03) Usual Body Weight: (337# on 06/01/24) Sheldon Body Weight (lbs) (Calculated): 178 lbs Sheldon Body Weight (Kg) (Calculated): 81 kg % Sheldon Body Weight (Calculated): 190.4 % BMI (kg/m2) (Calculated): 47 BMI Categories: Obese Class 3 (BMI 40.0 or greater) Wt Readings from Last 10 Encounters: 08/10/24 (!) 157 kg (346 lb 9 oz) 07/27/24 (!) 154 kg (339 lb 4.8 oz) 07/21/24 (!) 152 kg (335 lb) 07/04/24 (!) 153 kg (337 lb) 06/01/24 (!) 153 kg (337 lb 9.6 oz) 05/18/24 (!) 150 kg (330 lb) Nutrition Diagnosis: Increased nutrient needs related to increase demand for energy/nutrients as evidenced by (s/p open heart surgery) Nutrition Interventions: Food and/or Nutrient Delivery: Continue Current Diet, Continue Oral Nutrition Supplement Nutrition Education/Counseling: (Received education with [facility] [facility], plan for facility at discharge. Will continue to monitor education needs) Coordination of Nutrition Care: Continue to monitor while inpatient Goals: Goals: PO intake 75% or greater, by next RD assessment Nutrition Monitoring and Evaluation: Behavioral-Environmental Outcomes: Knowledge or Skill Food/Nutrient Intake Outcomes: Food and Nutrient Intake, Supplement Intake Physical Signs/Symptoms Outcomes: Biochemical Data, GI Status, Fluid Status or Edema, Skin, Weight Discharge Planning: Too soon to determine Jenny Caballero, RD, LD Contact: *[phone] or via [employer]le[employer] chat [1] acetaminophen, 1,000 mg, Oral, q8h amiodarone, 400 mg, Oral, Daily amLODIPine, 10 mg, Oral, Daily asenapine, 5 mg, SubLINGual, Nightly bumetanide, 2 mg, IntraVENous, TID carvedilol, 6.25 mg, Oral, BID WC chlorhexidine, , Topical, Daily doxazosin, 2 mg, Oral, Daily guaiFENesin, 600 mg, Oral, BID heparin, 5,000 Units, SubCUTAneous, BID insulin glargine, 28 Units, SubCUTAneous, q24h insulin lispro, 0-6 Units, SubCUTAneous, TID WC insulin lispro, 8 Units, SubCUTAneous, TID WC ipratropium-albuterol, 3 mL, Nebulization, TID Lidocaine, 1 patch, Topical, Daily pantoprazole, 40 mg, Oral, qAM AC polyethylene glycol (PEG) 3350, 17 g, Oral, Daily senna-docusate sodium, 2 tablet, Oral, Nightly sodium chloride 0.9%, 5-40 mL, IntraCATHeter, q8h [2] dexmedeTOMIDine, 0.1-1.5 mcg/kg/hr, Last Rate: Stopped (08/10/24 1008) * Anay Johnson, AYDIN - 08/10/2024 12:41 PM EDT Images from the original note were not included. PHYSICAL THERAPY [facility] Treatment Note Name/MRN: Erickson Riggs ([id number]) Date of : 1960 Age: 64 y.o. Room/Bed: T1-118/T1-118 A Discharge Recommendation: Continue to assess pending progress (LTACH vs. SNF depending on progress and medical needs) Other: TBD - has FWW and WC Prior Level of Function Prior Level of ADL Function: Independent Prior Level of Mobility: Independent; Device: None Prior Level of Transfers: Independent States he will be staying with his daughter upon discharge. She lives in a 1 level home with 5 steps to enter with hand rail and has tub/shower combo. Assessment Pt requires min to mod assist for bed mobility and transfers. SpO2 dropped to mid 80s with mobility, but back up to low 90s with deep breathing fairly quick. RN notified. No PT goals met this session. Recommend LTACH vs. SNF at discharge. Subjective Pt is supine in the bed, agrees to PT. Okay for PT per RN. Pt currently on NIV. +pvc monitor present. Pain: Pt denies any current pain. RN managing pain. Medical Precautions: No active isolations Proper PPE donned/doffed in accordance with facility standards. Fall Risk: Nelson Fall Risk Score: 75 (High Risk) Precautions/Restrictions: Sternal Precautions: No lifting greater than 10 lbs. Ok for modified UE precautions using Keep Your Move in the Tube technique Overall Cognitive Status: Exceptions - Memory: decreased short term memory - Safety judgement: decreased awareness of need for assistance and decreased awareness of need for safety - Problem solving: assistance required to identify errors made, assistance required to correct errors made, and decreased awareness of errors Overall Orientation Status: Oriented to Person Family/Caregiver Present: none Objective Bed Mobility Supine to sit: Mod Assist Rolling to left: Min Assist Scooting: Min Assist HOB Elevated Transfers/Mobility Sit to stand: Min Assist Stand to sit: Min Assist Ambulation Ambulation 1 Assistive device(s) used: Used therapist for support Assist level: Min Assist Distance (ft): 4 ft EOB to chair Balance During Session: Static stand with min assist x 1 Exercises Exercises Knee Long Arc Quad: x 10 Ankle Pumps: x 10 Upper Extremity: shoulder shrugs x 10 Plan Continue acute PT per plan of care. Safety/Education Safety Safety Devices in place: All fall risk precautions in place, call light within reach, left in chair, patient at risk for falls, and pvc monitor present Restraints: No Education Education Given To: patient Education Provided: PT Role, PT Goals, Precautions, Transfer Training, and Discharge Recommendations Education Method: Verbal Barriers to Learning: Cognition Education Outcome: Continued Education Needed Outcome Measures AM-PAC AM-PAC Inpatient Mobility Raw Score (No Stairs) : 15 JH-HLM -HLM Score: Static standing (1 or more minutes) Goals Patient Stated Goal: To go home Encounter Problems Encounter Problems (Active) Cardiac Patient will perform bed mobility with modified independence in order to improve independence and prepare for out of bed mobility. (Progressing) Start: 08/04/24 Expected End: 09/01/24 Patient will complete sit to stand transfer with modified independence to no assistive device in order to improve safety and prepare for out of bed mobility. (Progressing) Start: 08/04/24 Expected End: 09/01/24 Patient will ambulate 350 feet or ambulate 5 minutes with modified independence with RPE of 14 or lower. (Not Progressing) Start: 08/04/24 Expected End: 09/01/24 Patient will ascend and descend 5 stairs with supervision rail for balance only. (Not Addressed) Start: 08/04/24 Expected End: 09/01/24 Patient will be independent with P&C exercises. (Progressing) Start: 08/04/24 Expected End: 09/01/24 Patient will be independent with managing secretions and home walking program. (Progressing) Start: 08/04/24 Expected End: 09/01/24 Therapy Time Individual Co-treatment Time In 1210 Time Out 1235 Minutes 25 Timed Code Treatment Minutes: (2FA) Anay Johnson, STEAM LOCOMOTIVE FIRER/FIREMAN Cosigned by Melissa Allen, PT at 08/10/2024 3:19 PM EDT * Korin Nguyen, GARY - PLUMBING MANAGER - 08/10/2024 9:22 AM EDT Department of Internal Medicine Division of Endocrinology, Diabetes, & Metabolism Endocrinology Note Patient Name: Erickson Riggs : 1960 AGE: 64 y.o. 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 PLAN: BGL still tightly controlled Lower Lantus 28 units - changed to AM dosing Keep Humalog tid meals -please hold if NPO or not eating Keep lowered dose Humalog low sliding scale 3 times daily ICU goal <180 GMF goal <150 POCT BG ACHS Hypoglycemia management per protocol Carb controlled diet once tolerates ANTICIPATED ENDOCRINE HOME GOING RECOMMENDATIONS: Optimized for Discharge from Endocrine standpoint: No Home Going Endocrine Rx Recommendations-- Tbd-Per Meds to beds has no prescription drug coverage Consider metformin and possibly relion [employer] pens Could benefit from sglt2 vs glp1 -although will likely not be covered Glucometer, lancets, test trips, alcohol pads Outpt Follow Up-- PCP SUBJECTIVE/HPI: CHIEF COMPLAINT: No chief complaint on file. S/p aortic root repair A1c elevated, did not see any hx of dm2 or diabetes meds in chart review New onset DM2, states family history mother has DM2 he knows a little bit about diabetes Discussed A1c Bgl below- remain stable-slightly tightly controlled lower insulins for today He is awake, takative but confused On oxygen -hi chantelle nc Is eating pretty well No nv noted Spoke with nursing team in room No dc yet Type of DM: 2 Onset of DM: not clear Home DM Medication Regimen: none DM control (last A1c/glucose data): Lab Results Component Value Date HGBA1C 7.4 (H) 07/27/2024 Glucose Date/Time Value Ref Range Status 08/10/2024 08:24 AM 136 (H) 70 - 100 mg/dL Final 08/09/2024 09:08 PM 91 70 - 100 mg/dL Final 08/09/2024 05:05 PM 111 (H) 70 - 100 mg/dL Final 08/09/2024 12:43 PM 106 (H) 70 - 100 mg/dL Final 08/09/2024 07:55 AM 98 70 - 100 mg/dL Final 08/08/2024 05:12 PM 95 70 - 100 mg/dL Final Review of Systems ROS negative except for those mentioned in HPI. OBJECTIVE: Vitals: 08/10/24 0349 08/10/24 0600 08/10/24 0802 08/10/24 0804 BP: Pulse: 64 72 Resp: 23 Temp: TempSrc: SpO2: 99% 94% Weight: (!) 346 lb 9 oz (157 kg) Height: PF: Physical Exam Vitals and nursing note reviewed. Constitutional: General: He is not in acute distress. Appearance: He is morbidly obese. He is ill-appearing. He is not toxic-appearing. Interventions: Nasal cannula in place. Comments: Hi chantelle HENT: Nose: Nose normal. Cardiovascular: Rate and Rhythm: Tachycardia present. Pulmonary: Effort: Pulmonary effort is normal. Abdominal: Tenderness: There is no guarding. Skin: General: Skin is warm and dry. Coloration: Skin is pale. Findings: Bruising present. Comments: Intact incision Neurological: Mental Status: He is alert. He is confused. Psychiatric: Mood and Affect: Mood normal. Behavior: Behavior normal. Behavior is cooperative. 24 hour intake/output: Intake/Output Summary (Last 24 hours) at 08/10/2024 09 Last data filed at 08/10/2024 0646 Gross per 24 hour Intake 806 ml Output 3150 ml Net -2344 ml Diet: Adult diet Regular; 5 carb choices (75 gm/meal) Medications (as per EMR): HomeMeds: Current Outpatient Medications Medication Instructions amLODIPine (NORVASC) 10 mg, Daily doxazosin (Cardura) 2 MG tablet 1 tablet, Nightly metoprolol tartrate (LOPRESSOR) 25 mg, 2 times daily Scheduled Meds:acetaminophen, 1,000 mg, Oral, q8h amiodarone, 400 mg, Oral, Daily amLODIPine, 10 mg, Oral, Daily asenapine, 5 mg, SubLINGual, Nightly bumetanide, 2 mg, IntraVENous, TID carvedilol, 3.125 mg, Oral, BID WC chlorhexidine, , Topical, Daily doxazosin, 2 mg, Oral, Daily guaiFENesin, 600 mg, Oral, BID heparin, 5,000 Units, SubCUTAneous, BID insulin glargine, 28 Units, SubCUTAneous, q24h insulin lispro, 0-6 Units, SubCUTAneous, TID WC insulin lispro, 8 Units, SubCUTAneous, TID WC ipratropium-albuterol, 3 mL, Nebulization, TID Lidocaine, 1 patch, Topical, Daily pantoprazole, 40 mg, Oral, qAM AC polyethylene glycol (PEG) 3350, 17 g, Oral, Daily senna-docusate sodium, 2 tablet, Oral, Nightly sodium chloride 0.9%, 5-40 mL, IntraCATHeter, q8h Continuous Infusions:dexmedeTOMIDine, 0.1-1.5 mcg/kg/hr, Last Rate: 0.2 mcg/kg/hr (08/10/24 0657) PRN Meds:PRN medications: calcium gluconate, dextrose, dextrose, glucagon (rDNA), glucose, hydrALAZINE, ipratropium-albuterol, LORazepam, magnesium hydroxide, magnesium sulfate OR magnesium sulfate, melatonin, naloxone, ondansetron ODT OR ondansetron, oxyCODONE OR oxyCODONE, potassium ch loride OR potassium chloride OR potassium chloride, potassium chloride CR, sodium chloride 0.9% Diagnostic Workup: I reviewed pertinent Laboratory results, Radiographic results, and Other Clinical Notes at the timeof today's encounter. Labs: No components found for: "LABA1C" No components found for: "EAG" Lab Results Component Value Date NA 141 08/10/2024 K 3.7 08/10/2024 CL 95 (L) 08/10/2024 CO2 32 (H) 08/10/2024 BUN 72 (H) 08/10/2024 CREATININE 1.62 (H) 08/10/2024 GLUCOSE 131 (H) 08/10/2024 CALCIUM 9.2 08/10/2024 No results found for: "CHLPL", "CHOL" No results found for: "TRIG" No results found for: "HDL" No results found for: "LDLCALC" No results found for: "VLDL" No results found for: "CHOLHDLRATIO" No results found for: "BTNQ98QMA" No results found for: "TSH", "L0XAFVV", "E6RMPGC", "THYROIDAB" Radiology reportsas per the Radiologist Radiology: XR chest 1 view Result Date: 08/03/2024 Patient Name: ERICKSON RIGGS : 1960 [facility]#: [id number] Exam Date/Time: 08/03/2024 14:31 Procedure: XR CHEST 1 VIEW Ordering Provider: SOLANO RICHARD Reason For Exam: FOREIGN BODY; Confirm Needle Count AP CHEST X-RAY CLINICAL INDICATION: FOREIGN BODY;Confirm Needle Count TECHNIQUE: AP portable x-ray of the chest. COMPARISON: None FINDINGS: Intraoperative radiographs of the chest were obtained for incorrect instrument count. The patient has undergone open heart surgery with sternal wires and mediastinal drain. There is also a [place]-Brian catheter,ETT and NG tube. An atrial appendage clip is present. No radiopaque foreign body or instrument is id entified. The cardiomediastinal silhouette is enlarged. No evidence of a retained surgical instrument. Discussed with OR team at the time of exam completion. Report Dictated on Electronically Signed By: Adrian Alvarez MD Electronically Signed Date/Time: 08/03/2024 2:53 PM EDT History/Other: Past Medical History: Past Medical History: Diagnosis Date Alcohol abuse Aneurysm (HCC) Atrial fibrillation (HCC) Chronic bronchitis (HCC) CVA (cerebral vascular accident) (HCC) about 14 years ago per pt GERD (gastroesophageal reflux disease) Hypertension Nicotine abuse SONIA (obstructive sleep apnea) does not use cpap Paroxysmal supraventricular tachycardia (HCC) Shortness of breath Past Surgical History: Past Surgical History: Procedure Laterality Date CARDIAC CATHETERIZATION N/A 06/08/2024 Performed by Joe Timmons MD at [facility] Cardiac Cath/EP Lab CHOLECYSTECTOMY 2015 KIDNEY STONE SURGERY LUMBAR DISCECTOMY NEPHRECTOMY Right 1999 Allergy(ies): Allergies Allergen Reactions Penicillins Hives Other Reaction(s): GI upset, hives Hives or GI upset-patient unsure Aspirin Hives Other Reaction(s): GI Upset, GI upset, hives Family History: Family History Problem Relation Name Age of Onset Coronary artery disease Mother Heart attack Mother Coronary artery disease Father Heart attack Father Social History: Social History Tobacco Use Smoking status: Former Average packs/day: 1 pack/day for 18.0 years (18.0 ttl pk-yrs) Types: Cigarettes Start date: 2004 Smokeless tobacco: Never Vaping Use Vaping status: Never Used Substance Use Topics Alcohol use: Not Currently Comment: holidays/special occasions Drug use: Yes Frequency: 14.0 times per week Types: Marijuana Comment: smoking Portions of the information within this encounter were entered using an electronic dictation system. Best attempts were made to edit/proofread the information prior to note completion. Despite the review of information, some errors may remain. If there are questions related to the information contained within the note please contact the signing physician directly. I spent 35 minutes with the pt which involved coordination of care, medical evaluation, review of records, and/or counseling of the pt regarding his/her condition/disease state/prognosis on the date of this note. * GARY Farrell CNP - 08/10/2024 9:18 AM EDT Images from the original note were not included. Cardiothoracic Surgery/[facility] Progress Note PATIENT NAME: Erickson Riggs DATE: 08/10/24 HPI: 64 yo male with PMH of HTN, aortic aneurysm, afib, cardiomyopathy, SONIA, former tobacco use, marijuana use, and solitary kidney. Pt follows with Cardiology who ordered an annual CTA chest which was completed on 04/26/24 and showed ascending thoracic aorta measures up to 5.2 cm. Previous CTA chest completed on 04/03/23 showed dilated ascending aorta measuring 4.7 cm. He was referred to Dr. Solano as an OP. He admits to being sedentary most of the time, washing dishes wears him out. Surgery/Procedure: 08/03/24: s/p valve sparing aortic root and ascending aorta replacement with 30mm Cardioroot graft, Left atrial appendage exlusion with 40mm Atriclip, ENRIQUE with Dr. Solano Interval History: 08/10/24, POD# 07. Afebrile, NSR this AM, BP stable with a couple of hypertensive episodes documented, on NIV. Intermittent afib yesterday but would self convert. Delirious and restless most of day. This AM, sitting up in bed, awake and alert. Seems more appropriate, says he feels good, answering qu estions, following commands. Per nursing, was able sleep more last night. +BM's. Current IV Drips: Precedex- 0.2mcg/kg/hr NIV: FiO2-60% Objective: UO cc/24hrs: 3,150 Vitals: BP: 140/75, MAP (mmHg): 92, BP Method: Automatic Heart Rate: 72 Resp: 23 Temp: 36.8 C (98.2 F), Temp Source: Temporal BMI (Calculated): 46.99 BMP: Recent Labs 08/08/24 0157 08/08/24 0948 08/09/24 0026 08/09/242109 05/14/25 0302 NA 136 < > 134* 142 141 K 4.8 < > 3.6 3.6 3.7 CL 96* < > 91* 95* 95* CO2 27 < > 32* 33* 32* BUN 64* < > 66* 66* 72* CREATININE 1.52* < > 1.48* 1.53* 1.62* CALCIUM 9.2 < > 8.9 9.1 9.2 MG 2.3 -- 2.1 -- 2.3 < > = values in this interval not displayed. CBC: Recent Labs 08/08/24 0157 08/09/24 0026 08/09/24 11208/09/24199908/10/24 0302 WBC 10.5 10.6 -- -- 12.1* HGB 10.0* 9.6* < > 11.7 11.5 10.6* HCT 31.6* 29.3* -- -- 32.6* PLT 165 179 -- -- 226 MCV 91.1 89.3 -- -- 89.8 RDW 14.1 13.8 -- -- 14.3 < > = values in this interval not displayed. INR: No results for input(s): "INR" in the last 72 hours. Physical Exam Vitals reviewed. Neck: Comments: Central line. Cardiovascular: Rate and Rhythm: Regular rhythm. Bradycardia present. Pulses: Normal pulses. Heart sounds: No murmur heard. Pulmonary: Effort: Pulmonary effort is normal. No respiratory distress. Breath sounds: Rhonchi present. No wheezing or rales. Comments: Diminished in bases bilaterally. Abdominal: General: There is distension. Palpations: Abdomen is soft. Tenderness: There is no abdominal tenderness. Genitourinary: Comments: External catheter. Incontinent at times. Musculoskeletal: General: Swelling present. Skin: General: Skin is warm and dry. Comments: Surgical incisions well approximated, no redness, warmth or drainage. Neurological: General: No focal deficit present. Mental Status: He is alert. Psychiatric: Mood and Affect: Mood normal. Behavior: Behavior normal. Assessment: Aortic aneurysm s/p valve sparing aortic root replacement Afib Cardiomyopathy HTN SONIA S/p nephrectomy d/t tumor Former smoker Marijuana smoker Hx ischemic stroke Post operative Pulm Management: Normal Post-operative Course Post-operative Atrial Fibrillation: [x]Yes [] No Acute blood loss anemia/consumptive thrombocytopenia Plan: Patient status: ICU PRN ativan, okay to continue precedex drip. Seems to be doing well on it as of now. -Saphris at night. Wean O2 as able, okay for break from NIV this AM to HFNC. -NIV at night and during naps. Continue amio 400mg daily. Amlodipine 10mg daily. No aspirin, discussed with surgeon. Listed allergy as well. Coreg 3.125mg BID, consider increasing if BP remains high. Cardura 2mg daily (home med). Bumex TID. -Monitor BMP q12h. Otherwise daily labs and CXR. Out of bed as able, progressive mobility. GI prophy: PO protonix DVT prophy:TEDs, SCDs, and Heparin SubQ Pulmonary hygiene: IS and Acapella Consults: Endocrinology following. PT/OT: Continue to assess (08/09/24) TCC/Discharge Planning: TBD. Central Line: [x]Yes [] No Arterial Line: []Yes [x] No Iyer: []Yes [x] No Restraints: []Yes [x] No Patient discussed and plan of day developed from multidisciplinary rounds between Cardiothoracic Surgery (Cardiothoracic Surgeon, ENMA) and Critical Care Attending Critical Care time spent 20 minutes. The time involved in the performance of this care was exclusive of separately billable procedures, teaching time and treating other patients. The time was spent personally by myself for the following activities: examination of the patient, ordering and/or performing treatment, reviewing the laboratory and radiographic studies, and if applicable, ventilator management and blood gas interpretation. Cardiac Core Medications: Not indicated due to type of surgery EF: 74% (07/04/24) Blood Conservation: None noted in post-operative period Re Recording Mixer: Dr. Bragg Cosigned by Derian Loving DO at 08/10/2024 5:39 PM EDT * Latisha Erickson - 08/09/2024 4:05 PM EDT Spiritual Care Note [facility] Palliative Care Patient Name:Erickson Riggs Chief Complaint: No chief complaint on file. Reason for visit: Le[employer] Ii Assembler Consult Services Provided To:patient Background and visit note: Introduced myself and pastoral care to patient. He wants to speak with someone who speaks Fijian overall. I will contact the local Fijian buddhist to see if someone who can help him. Will follow up. Is there spiritual distress? NO Comment: Interventions: spiritual support provided, emotional support provided, empathetic listening, and validated feelings. Care Plan: Follow up loom checker and connect to higher power. Follow Up: PRN and when patient is able. Debriefed: with tube station attendant team. Latsiha Erickson 08/09/24 * Anay Johnson PTA - 08/09/2024 2:55 PM EDT Images from the original note were not included. PHYSICAL THERAPY [facility] Treatment Note Name/MRN: Erickson Riggs ([id number]) Date of : 1960 Age: 64 y.o. Room/Bed: T1-118/T1-118 A Discharge Recommendation: Continue to assess pending progress (LTACH vs. SNF depending on progress and medical needs) Other: TBD - has FWW and WC Prior Level of Function Prior Level of ADL Function: Independent Prior Level of Mobility: Independent; Device: None Prior Level of Transfers: Independent States he will be staying with his daughter upon discharge. She lives in a 1 level home with 5 steps to enter with hand rail and has tub/shower combo. Assessment Pt was able to complete exercises with increased time and rest breaks needed. Verbal cues for deep breathing technique and demo given. No PT goals met this session. Recommend LTACH vs SNF depending on progress and medical needs. Consulted PT for change in recommendation. Subjective Pt is supine in the bed, agrees to PT. On 100% high flow O2. RN okayed PT for bed level session. Pain: Pt denies any current pain. Medical Precautions: No active isolations Proper PPE donned/doffed in accordance with facility standards. Fall Risk: Nelson Fall Risk Score: 75 (High Risk) Precautions/Restrictions: Sternal Precautions: No lifting greater than 10 lbs. Ok for modified UE precautions using Keep Your Move in the Tube technique Overall Cognitive Status: Exceptions - Memory: decreased short term memory and decreased correction memory - Safety judgement: decreased awareness of need for assistance and decreased awareness of need for safety - Problem solving: decreased awareness of errors Overall Orientation Status: Oriented to Place and Oriented to Person Family/Caregiver Present: none Objective Exercises Exercises Quad Sets: x 10 Heelslides: x 10 Hip Abduction: x 10 Ankle Pumps: x 10 Comments: P&C exercises#1-9 x 10 reps, I.S. 750-1000 mL Plan Continue acute PT per plan of care. Safety/Education Safety Safety Devices in place: All fall risk precautions in place, call light within reach, left in bed, bed alarm in place, patient at risk for falls, and nurse notified Restraints: No Education Education Given To: patient Education Provided: PT Role, PT Goals, Plan of Care, Precautions, and Discharge Recommendations Education Method: Verbal Barriers to Learning: None, Cognition Education Outcome: Continued Education Needed Outcome Measures AM-PAC AM-PAC Inpatient Mobility Raw Score (No Stairs) : 15 JH-HLM -HLM Score: Bed activity Goals Patient Stated Goal: To go home Encounter Problems Encounter Problems (Active) Cardiac Patient will perform bed mobility with modified independence in order to improve independence and prepare for out of bed mobility. (Not Addressed) Start: 08/04/24 Expected End: 09/01/24 Patient will complete sit to stand transfer with modified independence to no assistive device in order to improve safety and prepare for out of bed mobility. (Not Addressed) Start: 08/04/24 Expected End: 09/01/24 Patient will ambulate 350 feet or ambulate 5 minutes with modified independence with RPE of 14 or lower. (Not Addressed) Start: 08/04/24 Expected End: 09/01/24 Patient will ascend and descend 5 stairs with supervision rail for balance only. (Not Addressed) Start: 08/04/24 Expected End: 09/01/24 Patient will be independent with P&C exercises. (Progressing) Start: 08/04/24 Expected End: 09/01/24 Patient will be independent with managing secretions and home walking program. (Progressing) Start: 08/04/24 Expected End: 09/01/24 Therapy Time Individual Co-treatment Time In 1426 Time Out 1449 Minutes 23 Timed Code Treatment Minutes: (2TP) Anay Johnson STEAM LOCOMOTIVE FIRER/FIREMAN Cosigned by Melissa Allen, PT at 08/10/2024 3:19 PM EDT * Koirn Nguyen, COMMERCIAL PEST CONTROL REPRESENTATIVE - PLUMBING MANAGER - 08/09/2024 9:37 AM EDT Department of Internal Medicine Division of Endocrinology, Diabetes, & Metabolism Endocrinology Note Patient Name: Erickson Riggs : 1960 AGE: 64 y.o. 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 PLAN: BGL tightly controlled this morning, 98 Keep Lantus 30 units - changed to AM dosing Lower Humalog tid meals -please hold if NPO or not eating Lower Humalog to low sliding scale 3 times daily ICU goal <180 GMF goal <150 POCT BG ACHS Hypoglycemia management per protocol Carb controlled diet once tolerates ANTICIPATED ENDOCRINE HOME GOING RECOMMENDATIONS: Optimized for Discharge from Endocrine standpoint: No Home Going Endocrine Rx Recommendations-- Tbd-Per Meds to beds has no prescription drug coverage Consider metformin and possibly relion [employer] pens Could benefit from sglt2 vs glp1 -although will likely not be covered Glucometer, lancets, test trips, alcohol pads Outpt Follow Up-- PCP SUBJECTIVE/HPI: CHIEF COMPLAINT: No chief complaint on file. S/p aortic root repair A1c elevated, did not see any hx of dm2 or diabetes meds in chart review New onset DM2, states family history mother has DM2 he knows a little bit about diabetes Discussed A1c Bgl below- remain stable-slightly tightly controlled lower insulins for today He is awake, takative but confused Off Precedex receiving Ativan injections Hi chantelle nc Tachycardic on monitor On diet did have breakfast this morning per patient and nursing Spoke with nursing team in room Type of DM: 2 Onset of DM: not clear Home DM Medication Regimen: none DM control (last A1c/glucose data): Lab Results Component Value Date HGBA1C 7.4 (H) 07/27/2024 Glucose Date/Time Value Ref Range Status 08/09/2024 07:55 AM 98 70 - 100 mg/dL Final 08/08/2024 05:12 PM 95 70 - 100 mg/dL Final 08/08/2024 11:41 AM 109 (H) 70 - 100 mg/dL Final 08/08/2024 07:07 AM 107 (H) 70 - 100 mg/dL Final 08/07/2024 06:00 PM 121 (H) 70 - 100 mg/dL Final 08/07/2024 01:25 PM 143 (H) 70 - 100 mg/dL Final Review of Systems ROS negative except for those mentioned in HPI. OBJECTIVE: Vitals: 08/09/24 0500 08/09/24 0600 08/09/24 0630 08/09/24 0740 BP: 131/75 Pulse: 59 60 64 Resp: Temp: TempSrc: SpO2: 90% 92% 90% 92% Weight: (!) 341 lb 4.4 oz (155 kg) Height: PF: Physical Exam Vitals and nursing note reviewed. Constitutional: General: He is not in acute distress. Appearance: He is morbidly obese. He is ill-appearing. He is not toxic-appearing. Interventions: Nasal cannula in place. Comments: Hi chantelle HENT: Nose: Nose normal. Cardiovascular: Rate and Rhythm: Tachycardia present. Pulmonary: Effort: Pulmonary effort is normal. Abdominal: Tenderness: There is no guarding. Skin: General: Skin is warm and dry. Coloration: Skin is pale. Findings: Bruising present. Comments: Intact incision Neurological: Mental Status: He is alert. He is confused. Psychiatric: Mood and Affect: Mood normal. Behavior: Behavior normal. Behavior is cooperative. 24 hour intake/output: Intake/Output Summary (Last 24 hours) at 08/09/2024 0938 Last data filed at 08/09/2024 0600 Gross per 24 hour Intake 3168 ml Output 4725 ml Net -1557 ml Diet: Adult diet Regular; 5 carb choices (75 gm/meal) Medications (as per EMR): HomeMeds: Current Outpatient Medications Medication Instructions amLODIPine (NORVASC) 10 mg, Daily doxazosin (Cardura) 2 MG tablet 1 tablet, Nightly metoprolol tartrate (LOPRESSOR) 25 mg, 2 times daily Scheduled Meds:acetaminophen, 1,000 mg, Oral, q8h amiodarone, 400 mg, Oral, Daily amLODIPine, 10 mg, Oral, Daily asenapine, 5 mg, SubLINGual, Nightly bumetanide, 2 mg, IntraVENous, TID carvedilol, 3.125 mg, Oral, BID WC chlorhexidine, , Topical, Daily doxazosin, 2 mg, Oral, Daily guaiFENesin, 600 mg, Oral, BID heparin, 5,000 Units, SubCUTAneous, BID insulin glargine, 30 Units, SubCUTAneous, q24h insulin lispro, 0-12 Units, SubCUTAneous, TID WC insulin lispro, 10 Units, SubCUTAneous, TID WC ipratropium-albuterol, 3 mL, Nebulization, TID Lidocaine, 1 patch, Topical, Daily pantoprazole, 40 mg, Oral, qAM AC polyethylene glycol (PEG) 3350, 17 g, Oral, Daily senna-docusate sodium, 2 tablet, Oral, Nightly sodium chloride 0.9%, 5-40 mL, IntraCATHeter, q8h Continuous Infusions: PRN Meds:PRN medications: calcium gluconate, dextrose, dextrose, glucagon (rDNA), glucose, hydrALAZINE, ipratropium-albuterol, magnesium hydroxide, magnesium sulfate OR magnesium sulfate, melatonin, naloxone, ondansetron ODT OR ondansetron, oxyCODONE OR oxyCODONE, potassium chloride OR potassium chloride OR potassium chloride, potassium chloride CR, sodium chloride 0.9% Diagnostic Workup: I reviewed pertinent Laboratory results, Radiographic results, and Other Clinical Notes at the timeof today's encounter. Labs: No components found for: "LABA1C" No components found for: "EAG" Lab Results Component Value Date NA 134 (L) 08/09/2024 K 3.6 08/09/2024 CL 91 (L) 08/09/2024 CO2 32 (H) 08/09/2024 BUN 66 (H) 08/09/2024 CREATININE 1.48 (H) 08/09/2024 GLUCOSE 132 (H) 08/09/2024 CALCIUM 8.9 08/09/2024 No results found for: "CHLPL", "CHOL" No results found for: "TRIG" No results found for: "HDL" No results found for: "LDLCALC" No results found for: "VLDL" No results found for: "CHOLHDLRATIO" No results found for: "ELHY90UWH" No results found for: "TSH", "V3GEZMY", "E6NJAOT", "THYROIDAB" Radiology reportsas per the Radiologist Radiology: XR chest 1 view Result Date: 08/03/2024 Patient Name: ERICKSON RIGGS : 1960 Exam Date/Time: 08/03/2024 14:31 Procedure: XR CHEST 1 VIEW Ordering Provider: SOLANO RICHARD Reason For Exam: FOREIGN BODY; Confirm Needle Count AP CHEST X-RAY CLINICAL INDICATION: FOREIGN BODY;Confirm Needle Count TECHNIQUE: AP portable x-ray of the chest. COMPARISON: None FINDINGS: Intraoperative radiographs of the chest were obtained for incorrect instrument count. The patient has undergone open heart surgery with sternal wires and mediastinal drain. There is also a [place]-Brian catheter,ETT and NG tube. An atrial appendage clip is present. No radiopaque foreign body or instrument is id entified. The cardiomediastinal silhouette is enlarged. No evidence of a retained surgical instrument. Discussed with OR team at the time of exam completion. Report Dictated on Electronically Signed By: Adrian Alvarez MD Electronically Signed Date/Time: 08/03/2024 2:53 PM EDT History/Other: Past Medical History: Past Medical History: Diagnosis Date Alcohol abuse Aneurysm (HCC) Atrial fibrillation (HCC) Chronic bronchitis (HCC) CVA (cerebral vascular accident) (HCC) about 14 years ago per pt GERD (gastroesophageal reflux disease) Hypertension Nicotine abuse SONIA (obstructive sleep apnea) does not use cpap Paroxysmal supraventricular tachycardia (HCC) Shortness of breath Past Surgical History: Past Surgical History: Procedure Laterality Date CARDIAC CATHETERIZATION N/A 06/08/2024 Performed by Joe Timmons MD at [facility] Cardiac Cath/EP Lab CHOLECYSTECTOMY 2015 KIDNEY STONE SURGERY LUMBAR DISCECTOMY NEPHRECTOMY Right 1998 Allergy(ies): Allergies Allergen Reactions Penicillins Hives Other Reaction(s): GI upset, hives Hives or GI upset-patient unsure Aspirin Hives Other Reaction(s): GI Upset, GI upset, hives Family History: Family History Problem Relation Name Age of Onset Coronary artery disease Mother Heart attack Mother Coronary artery disease Father Heart attack Father Social History: Social History Tobacco Use Smoking status: Former Average packs/day: 1 pack/day for 18.0 years (18.0 ttl pk-yrs) Types: Cigarettes Start date: 2004 Smokeless tobacco: Never Vaping Use Vaping status: Never Used Substance Use Topics Alcohol use: Not Currently Comment: holidays/special occasions Drug use: Yes Frequency: 14.0 times per week Types: Marijuana Comment: smoking Portions of the information within this encounter were entered using an electronic dictation system. Best attempts were made to edit/proofread the information prior to note completion. Despite the review of information, some errors may remain. If there are questions related to the information contained within the note please contact the signing physician directly. I spent 35 minutes with the pt which involved coordination of care, medical evaluation, review of records, and/or counseling of the pt regarding his/her condition/disease state/prognosis on the date of this note. * GARY Farrell CNP - 08/09/2024 6:34 AM EDT Images from the original note were not included. Cardiothoracic Surgery/CCM Progress Note PATIENT NAME: Erickson Riggs DATE: 08/09/24 HPI: 64 yo male with PMH of HTN, aortic aneurysm, afib, cardiomyopathy, SONIA, former tobacco use, marijuana use, and solitary kidney. Pt follows with Cardiology who ordered an annual CTA chest which was completed on 04/26/24 and showed ascending thoracic aorta measures up to 5.2 cm. Previous CTA chest completed on 04/03/23 showed dilated ascending aorta measuring 4.7 cm. He was referred to Dr. Solano as an OP. He admits to being sedentary most of the time, washing dishes wears him out. Surgery/Procedure: 08/03/24: s/p valve sparing aortic root and ascending aorta replacement with 30mm Cardioroot graft, Left atrial appendage exlusion with 40mm Atriclip, ENRIQUE with Dr. Solano Interval History: 08/09/24, POD# 07. Afebrile, afib yesterday but converted to SB overnight->amio stopped, BP stable, on HFNC. Only slept a couple of hours overnight, remains confused/delirious but mostly redirectable. Current IV Drips: Precedex- 1.2mcg/kg/hr Bumex- 6.211mcg/kg/hr HFNC: 100%, 50L/min Objective: UO cc/24hrs: 4,525 Vitals: BP: 123/74, MAP (mmHg): 88, BP Method: Automatic Heart Rate: 56 Resp: 18 Temp: 36.2 C (97.2 F), Temp Source: Temporal BMI (Calculated): 48.49 BMP: Recent Labs 08/07/24 0032 08/07/24 0542 08/08/24 0157 08/08/24 0948 08/08/24 1356 08/08/24 2035 08/09/24 0026 NA 131* < > 136 < > 133* 132* 134* K 5.2* < > 4.8 < > 4.1 3.6 3.6 CL 95* < > 96* < > 92* 88* 91* CO2 25 < > 27 < > 30 30 32* BUN 47* < > 64* < > 69* 68* 66* CREATININE 1.42* < > 1.52* < > 1.55* 1.57* 1.48* CALCIUM 8.9 < > 9.2 < > 8.9 8.9 8.9 MG 2.3 -- 2.3 -- -- -- 2.1 < > = values in this interval not displayed. CBC: Recent Labs 08/07/24 0641 08/08/24 0157 08/09/24 0026 WBC 12.8* 10.5 10.6 HGB 11.1* 10.0* 9.6* HCT 34.8* 31.6* 29.3* PLT 149 165 179 MCV 91.8 91.1 89.3 RDW 14.2 14.1 13.8 INR: No results for input(s): "INR" in the last 72 hours. Physical Exam Vitals reviewed. Neck: Comments: Central line. Cardiovascular: Rate and Rhythm: Regular rhythm. Bradycardia present. Pulses: Normal pulses. Heart sounds: No murmur heard. Pulmonary: Comments: Diminished R>L. On HFNC. Strong, wet cough. Abdominal: General: There is distension. Palpations: Abdomen is soft. Tenderness: There is no abdominal tenderness. Genitourinary: Comments: External catheter. Incontinent at times. Musculoskeletal: General: Swelling present. Skin: General: Skin is warm and dry. Comments: Surgical incisions well approximated, no redness, warmth or drainage. Neurological: General: No focal deficit present. Mental Status: He is alert. He is disoriented and confused. Assessment: Aortic aneurysm s/p valve sparing aortic root replacement Afib Cardiomyopathy HTN SONIA S/p nephrectomy d/t tumor Former smoker Marijuana smoker Hx ischemic stroke Post operative Pulm Management: Normal Post-operative Course Post-operative Atrial Fibrillation: [x]Yes [] No Acute blood loss anemia/consumptive thrombocytopenia Plan: Patient status: ICU Stop precedex, seems to be ineffective. Give 1mg ativan this AM. -Assess response, likely schedule q6h. Stop bumex drip, go to 2mg IVP TID. -Monitor BMP q12h. Amio gtt stopped overnight, keep off. -Start 400mg daily. Wean O2 as able, consider ultrasound guided thora on L side. Send sputum for culture if able to collect. Start mucinex BID. Carvedilol 3.125mg BID. Amlodipine 10mg daily. Cardura 2mg daily. Flomax discontinued. Okay for melatonin and saphris at night. Out of bed as able, progressive mobility. Encourage PO intake. GI prophy: PO protonix DVT prophy:TEDs, SCDs, and Heparin SubQ Pulmonary hygiene: IS and Acapella Consults: Endocrinology following. PT/OT: Home with home health (08/08/24) TCC/Discharge Planning: TBD. Central Line: [x]Yes [] No Arterial Line: []Yes [x] No Iyer: []Yes [x] No Restraints: []Yes [x] No Patient discussed and plan of day developed from multidisciplinary rounds between Cardiothoracic Surgery (Cardiothoracic Surgeon, ENMA) and Critical Care Attending Critical Care time spent 18 minutes. The time involved in the performance of this care was exclusive of separately billable procedures, teaching time and treating other patients. The time was spent personally by myself for the following activities: examination of the patient, ordering and/or performing treatment, reviewing the laboratory and radiographic studies, and if applicable, ventilator management and blood gas interpretation. Cardiac Core Medications: Not indicated due to type of surgery EF: 74% (07/04/24) Blood Conservation: None noted in post-operative period Re Recording Mixer: Dr. Bragg Cosigned by Derian Loving DO at 08/09/2024 10:39 AM EDT Associated attestation - Derian Loving DO - 08/09/2024 10:39 AM EDT I have personally performed a [id number] diagnostic evaluation on this patient on date of /13/25. History, labs, imaging studies, and electronic medical record have been reviewed by me. This note documented by the []lead housekeeper [x]ENMA reflects my history, exam, and medical decision making. I have reviewed and agree with the care plan. Changes were made in the orders as necessary. ROS documentation was reviewed and negative unless otherwise stated in HPI. Additional pertinent interval history, ROS, and physical exam findings: Patient in no distress, remains hypoxic on high FiO2 requirement and with ICU delirium. Assessment: Delirium Hypoxic respiratory failure Post operative Aortic root/ascending aortic replacement (08/03) Atrial fibrillation RLL effusion with atelectasis Plan: Stop precedex as it has been ineffective Ativan now, and then Q6 PRN if has a good response Transition off drips to bolus dosing of bumex Amio transitioned to PO Suspect if we can get him to have some good sleep/wake cycle and wear PAP while asleep will be ableto recruit lung and decrease FIO2 requirement. Check VBG Continue diuresis, may need thoracentesis on L side but will defer for now with delirium Continue ICU care Total critical care time for this patient with life-threatening unstable organ failure, including direct patient contact, management of life support systems, review of data including imaging and labs, and discussions with other team members and physicians at least 35 so far today, excluding procedures. * Anay Johnson, AYDIN - 08/08/2024 2:29 PM EDT Images from the original note were not included. PHYSICAL THERAPY [facility] Treatment Note Name/MRN: Erickson Riggs ([id number]) Date of : 1960 Age: 64 y.o. Room/Bed: T1-118/T1-118 A Discharge Recommendation: 24 hour supervision or assist, Home with Home health PT Other: TBD - has FWW and WC Prior Level of Function Prior Level of ADL Function: Independent Prior Level of Mobility: Independent; Device: None Prior Level of Transfers: Independent States he will be staying with his daughter upon discharge. She lives in a 1 level home with 5 steps to enter with hand rail and has tub/shower combo. Assessment Pt requires min assist for transfers. Constant verbal cues needed for compliance of precautions. Ptwas able to complete P&C exercises. No PT goals met this session. Recommend home with 24 hr assist and HHPT. Subjective Pt is in the chair, agrees to PT. Pain: [place] Pain Ratin = Hurts little more Pain Location: chest/incision Medical Precautions: No active isolations Proper PPE donned/doffed in accordance with facility standards. Fall Risk: Nelson Fall Risk Score: 75 (High Risk) Precautions/Restrictions: Sternal Precautions: No lifting greater than 10 lbs. Ok for modified UE precautions using Keep Your Move in the Tube technique Overall Cognitive Status: Exceptions - Memory: decreased short term memory - Safety judgement: decreased awareness of need for assistance and decreased awareness of need for safety - Problem solving: decreased awareness of errors - Insights: not aware of deficits Overall Orientation Status: Oriented to Place and Oriented to Person Family/Caregiver Present: none Objective Transfers/Mobility Sit to stand: Min Assist Stand to sit: Min Assist Verbal cues needed for sternal precautions Exercises Exercises Comments: P&C exercises#1-9 x 10 reps, I.S. 750-1000 mL Plan Continue acute PT per plan of care. Safety/Education Safety Safety Devices in place: All fall risk precautions in place, call light within reach, left in chair, patient at risk for falls, and no alarms engaged upon entry Restraints: No Education Education Given To: patient Education Provided: PT Role, PT Goals, Plan of Care, Transfer Training, and Discharge Recommendations Education Method: Verbal Barriers to Learning: None Education Outcome: Verbalized Understanding and Continued Education Needed Outcome Measures AM-PAC AM-PAC Inpatient Mobility Raw Score (No Stairs) : 15 JH-HLM JH-HLM Score: Static standing (1 or more minutes) Goals Patient Stated Goal: To go home Encounter Problems Encounter Problems (Active) Cardiac Patient will perform bed mobility with modified independence in order to improve independence and prepare for out of bed mobility. (Not Addressed) Start: 08/04/24 Expected End: 09/01/24 Patient will complete sit to stand transfer with modified independence to no assistive device in order to improve safety and prepare for out of bed mobility. (Progressing) Start: 08/04/24 Expected End: 09/01/24 Patient will ambulate 350 feet or ambulate 5 minutes with modified independence with RPE of 14 or lower. (Not Addressed) Start: 08/04/24 Expected End: 09/01/24 Patient will ascend and descend 5 stairs with supervision rail for balance only. (Not Addressed) Start: 08/04/24 Expected End: 09/01/24 Patient will be independent with P&C exercises. (Progressing) Start: 08/04/24 Expected End: 09/01/24 Patient will be independent with managing secretions and home walking program. (Progressing) Start: 08/04/24 Expected End: 09/01/24 Therapy Time Individual Co-treatment Time In 1410 Time Out 1423 Minutes 13 Timed Code Treatment Minutes: (tp) Anay Johnson, STEAM LOCOMOTIVE FIRER/FIREMAN Cosigned by Melissa Allen, PT at 08/08/2024 3:40 PM EDT * Korin Nguyen, COMMERCIAL PEST CONTROL REPRESENTATIVE - PLUMBING MANAGER - 08/08/2024 10:59 AM EDT Department of Internal Medicine Division of Endocrinology, Diabetes, & Metabolism Endocrinology Note Patient Name: Erickson Riggs : 1960 AGE: 64 y.o. Room/Bed: [facility] A Admission Date: 08/03/2024 Visit Date: 08/08/2024 Reason for Endocrine Consult: post heart Provider/Team Requesting Consult: cts PCP: [facility] [employer] Supervisor: No ASSESSMENT: New onset DM2 with hyperglycemia without correction insulin, A1c 7.4% Stress hyperglycemia Steroid induced hyperglycemia Aortic root replacement on 08-03-24 HTN Alcohol and nicotine use Morbid obesity Body mass index is 48.5 kg/m . PLAN: BGL overall stable Continue Lantus 30 units - changed to AM dosing Continue Humalog 01/06/10 tid meals Continue humalog moderate dose sliding scale with meals ICU goal <180 GMF goal <150 POCT BG ACHS Hypoglycemia management per protocol Carb controlled diet once tolerates ANTICIPATED ENDOCRINE HOME GOING RECOMMENDATIONS: Optimized for Discharge from Endocrine standpoint: No Home Going Endocrine Rx Recommendations-- Tbd-Per Meds to beds has no prescription drug coverage Consider metformin and possibly relion [employer] pens Could benefit from sglt2 vs glp1 -although will likely not be covered Glucometer, lancets, test trips, alcohol pads Outpt Follow Up-- PCP SUBJECTIVE/HPI: CHIEF COMPLAINT: No chief complaint on file. S/p aortic root repair A1c elevated, did not see any hx of dm2 or diabetes meds in chart review New onset DM2, states family history mother has DM2 he knows a little bit about diabetes Discussed A1c Bgl below- remain stable He is awake, takative but confused On Precedex drip Also on Bumex and amiodarone drip Hi chantelle nc Tachycardic on monitor On diet did have breakfast this morning Spoke with nursing team in room Type of DM: 2 Onset of DM: not clear Home DM Medication Regimen: none DM control (last A1c/glucose data): Lab Results Component Value Date HGBA1C 7.4 (H) 07/27/2024 Glucose Date/Time Value Ref Range Status 08/08/2024 07:07 AM 107 (H) 70 - 100 mg/dL Final 08/07/2024 06:00 PM 121 (H) 70 - 100 mg/dL Final 08/07/2024 01:25 PM 143 (H) 70 - 100 mg/dL Final 08/07/2024 09:15 AM 141 (H) 70 - 100 mg/dL Final 08/06/2024 08:37 PM 135 (H) 70 - 100 mg/dL Final 08/06/2024 03:28 PM 144 (H) 70 - 100 mg/dL Final Review of Systems ROS negative except for those mentioned in HPI. OBJECTIVE: Vitals: 08/08/24 0755 08/08/24 0800 08/08/24 0815 08/08/24 0900 BP: 106/80 140/98 BP Location: Patient Position: Pulse: 114 115 118 Resp: Temp: 36.4 C (97.6 F) TempSrc: Temporal SpO2: 90% 94% 94% Weight: Height: PF: Physical Exam Vitals and nursing note reviewed. Constitutional: General: He is not in acute distress. Appearance: He is morbidly obese. He is ill-appearing. He is not toxic-appearing. Interventions: Nasal cannula in place. Comments: Hi chantelle HENT: Nose: Nose normal. Cardiovascular: Rate and Rhythm: Tachycardia present. Pulmonary: Effort: Pulmonary effort is normal. Abdominal: Tenderness: There is no guarding. Skin: General: Skin is warm and dry. Coloration: Skin is pale. Findings: Bruising present. Comments: Intact incision Neurological: Mental Status: He is alert. He is confused. Psychiatric: Mood and Affect: Mood normal. Behavior: Behavior normal. Behavior is cooperative. 24 hour intake/output: Intake/Output Summary (Last 24 hours) at 08/08/2024 1059 Last data filed at 08/08/2024 0815 Gross per 24 hour Intake 1647 ml Output 3100 ml Net -1453 ml Diet: Adult diet Regular; 5 carb choices (75 gm/meal) Medications (as per EMR): HomeMeds: Current Outpatient Medications Medication Instructions amLODIPine (NORVASC) 10 mg, Daily doxazosin (Cardura) 2 MG tablet 1 tablet, Nightly metoprolol tartrate (LOPRESSOR) 25 mg, 2 times daily Scheduled Meds:acetaminophen, 1,000 mg, Oral, q8h amLODIPine, 10 mg, Oral, Daily carvedilol, 3.125 mg, Oral, BID WC chlorhexidine, , Topical, Daily doxazosin, 2 mg, Oral, Daily heparin, 5,000 Units, SubCUTAneous, BID insulin glargine, 30 Units, SubCUTAneous, q24h insulin lispro, 0-12 Units, SubCUTAneous, TID WC insulin lispro, 10 Units, SubCUTAneous, TID WC ipratropium-albuterol, 3 mL, Nebulization, TID Lidocaine, 1 patch, Topical, Daily pantoprazole, 40 mg, Oral, qAM AC polyethylene glycol (PEG) 3350, 17 g, Oral, Daily senna-docusate sodium, 2 tablet, Oral, Nightly sodium chloride 0.9%, 5-40 mL, IntraCATHeter, q8h tamsulosin, 0.4 mg, Oral, Daily valproic acid, 125 mg, Oral, q12h Continuous Infusions:amiodarone, 1 mg/min, Last Rate: 1 mg/min (08/08/24 0353) bumetanide, 1 mg/hr, Last Rate: 1 mg/hr (08/08/24 3094) dexmedeTOMIDine, 0.1-1.5 mcg/kg/hr, Last Rate: 1 mcg/kg/hr (08/08/24 7095) PRN Meds:PRN medications: calcium gluconate, dextrose, dextrose, glucagon (rDNA), glucose, hydrALAZINE, HYDROmorphone OR HYDROmorphone, ipratropium- albuterol, magnesium hydroxide, magnesium sulfate OR magnesium sulfate, melatonin, naloxone, ondansetron ODT OR ondansetron, oxyCODONE OR oxyCODONE, potassium chloride OR potassium chloride OR potassium chloride, potassium chloride CR, sodium chloride 0.9% Diagnostic Workup: I reviewed pertinent Laboratory results, Radiographic results, and Other Clinical Notes at the timeof today's encounter. Labs: No components found for: "LABA1C" No components found for: "EAG" Lab Results Component Value Date NA 135 (L) 08/08/2024 K 4.1 08/08/2024 CL 94 (L) 08/08/2024 CO2 30 08/08/2024 BUN 71 (H) 08/08/2024 CREATININE 1.53 (H) 08/08/2024 GLUCOSE 157 (H) 08/08/2024 CALCIUM 8.8 08/08/2024 No results found for: "CHLPL", "CHOL" No results found for: "TRIG" No results found for: "HDL" No results found for: "LDLCALC" No results found for: "VLDL" No results found for: "CHOLHDLRATIO" No results found for: "ANLB04PSX" No results found for: "TSH", "S8DNFKQ", "I9PVGXR", "THYROIDAB" Radiology reportsas per the Radiologist Radiology: XR chest 1 view Result Date: 08/03/2024 [facility] 1960 [id number] Exam Date/Time: 08/03/2024 14:31 Procedure: XR CHEST 1 VIEW Ordering Provider: SOLANO RICHARD Reason For Exam: FOREIGN BODY; Confirm Needle Count AP CHEST X-RAY CLINICAL INDICATION: FOREIGN BODY;Confirm Needle Count TECHNIQUE: AP portable x-ray of the chest. COMPARISON: None FINDINGS: Intraoperative radiographs of the chest were obtained for incorrect instrument count. The patient has undergone open heart surgery with sternal wires and mediastinal drain. There is also a [place]-Brian catheter,ETT and NG tube. An atrial appendage clip is present. No radiopaque foreign body or instrument is id entified. The cardiomediastinal silhouette is enlarged. No evidence of a retained surgical instrument. Discussed with OR team at the time of exam completion. Report Dictated on Electronically Signed By: Adrian Alvarez MD Electronically Signed Date/Time: 08/03/2024 2:53 PM EDT History/Other: Past Medical History: Past Medical History: Diagnosis Date Alcohol abuse Aneurysm (HCC) Atrial fibrillation (HCC) Chronic bronchitis (HCC) CVA (cerebral vascular accident) (HCC) about 14 years ago per pt GERD (gastroesophageal reflux disease) Hypertension Nicotine abuse SONIA (obstructive sleep apnea) does not use cpap Paroxysmal supraventricular tachycardia (HCC) Shortness of breath Past Surgical History: Past Surgical History: Procedure Laterality Date CARDIAC CATHETERIZATION N/A 06/08/2024 Performed by Joe Timmons MD at [facility] Cardiac Cath/EP Lab CHOLECYSTECTOMY 2015 KIDNEY STONE SURGERY LUMBAR DISCECTOMY NEPHRECTOMY Right 1999 Allergy(ies): Allergies Allergen Reactions Penicillins Hives Other Reaction(s): GI upset, hives Hives or GI upset-patient unsure Aspirin Hives Other Reaction(s): GI Upset, GI upset, hives Family History: Family History Problem Relation Name Age of Onset Coronary artery disease Mother Heart attack Mother Coronary artery disease Father Heart attack Father Social History: Social History Tobacco Use Smoking status: Former Average packs/day: 1 pack/day for 18.0 years (18.0 ttl pk-yrs) Types: Cigarettes Start date: 2004 Smokeless tobacco: Never Vaping Use Vaping status: Never Used Substance Use Topics Alcohol use: Not Currently Comment: holidays/special occasions Drug use: Yes Frequency: 14.0 times per week Types: Marijuana Comment: smoking Portions of the information within this encounter were entered using an electronic dictation system. Best attempts were made to edit/proofread the information prior to note completion. Despite the review of information, some errors may remain. If there are questions related to the information contained within the note please contact the signing physician directly. I spent 35 minutes with the pt which involved coordination of care, medical evaluation, review of records, and/or counseling of the pt regarding his/her condition/disease state/prognosis on the date of this note. * Russel Nunez, GARY Miller CNP - 08/08/2024 10:21 AM EDT Images from the original note were not included. Cardiothoracic Surgery/[facility] Progress Note PATIENT NAME: Erickson Riggs DATE: 08/08/24 HPI: 64 yo male with PMH of HTN, aortic aneurysm, afib, cardiomyopathy, SONIA, former tobacco use, marijuana use, and solitary kidney. Pt follows with Cardiology who ordered an annual CTA chest which was completed on 04/26/24 and showed ascending thoracic aorta measures up to 5.2 cm. Previous CTA chest completed on 04/03/23 showed dilated ascending aorta measuring 4.7 cm. He was referred to Dr. Solano as an OP. He admits to being sedentary most of the time, washing dishes wears him out. Surgery/Procedure: 08/03/24: s/p valve sparing aortic root and ascending aorta replacement with 30mm Cardioroot graft, Left atrial appendage exlusion with 40mm Atriclip, ENRIQUE with Dr. Solano Interval History: 08/08/24, POD# 06: Afebrile, afib in 110's this AM, on HFNC, BP stable. Increasing O2 requirements over weekend. Started on bumex gtt with >3L out over last 24 hours. On precedex. Confusion/delirium this AM. Current IV Drips: Precedex- 1mcg/kg/hr Bumex- 6.211mcg/kg/hr HFNC: 80%, 40L/min Objective: UO cc/24hrs: 3,100 Vitals: BP: 140/98, MAP (mmHg): 107, BP Method: Automatic Heart Rate: 118 Resp: 22 Temp: 36.4 C (97.6 F), Temp Source: Temporal BMI (Calculated): 48.49 BMP: Recent Labs 08/06/24 0007 08/06/24 1013 08/07/24 0032 08/07/24 0542 08/07/24200908/08/24 0157 08/08/24 0948 NA 129* < > 131* < > 133* 136 135* K 5.5* < > 5.2* < > 5.1 4.8 4.1 CL 98 < > 95* < > 97* 96* 94* CO2 21* < > 25 < > 24 27 30 BUN 43* < > 47* < > 58* 64* 71* CREATININE 1.62* < > 1.42* < > 1.52* 1.52* 1.53* CALCIUM 9.3 < > 8.9 < > 9.0 9.2 8.8 MG 2.3 -- 2.3 -- -- 2.3 -- < > = values in this interval not displayed. CBC: Recent Labs 08/06/24 0007 08/07/24 0641 08/08/24 0157 WBC 18.5* 12.8* 10.5 HGB 12.4* 11.1* 10.0* HCT 38.6* 34.8* 31.6* PLT 151 149 165 MCV 89.8 91.8 91.1 RDW 14.1 14.2 14.1 INR: No results for input(s): "INR" in the last 72 hours. Physical Exam Vitals reviewed. Neck: Comments: Central line. Cardiovascular: Rate and Rhythm: Tachycardia present. Rhythm irregular. Pulses: Normal pulses. Heart sounds: No murmur heard. Pulmonary: Comments: Diminished R>L. On HFNC. Abdominal: General: There is distension. Palpations: Abdomen is soft. Tenderness: There is no abdominal tenderness. Genitourinary: Comments: External catheter. Musculoskeletal: General: Swelling present. Skin: General: Skin is warm and dry. Comments: Surgical incisions well approximated, no redness, warmth or drainage. Neurological: General: No focal deficit present. Mental Status: He is alert. He is disoriented and confused. Assessment: Aortic aneurysm s/p valve sparing aortic root replacement Afib Cardiomyopathy HTN SONIA S/p nephrectomy d/t tumor Former smoker Marijuana smoker Hx ischemic stroke Post operative Pulm Management: Normal Post-operative Course Post-operative Atrial Fibrillation: [x]Yes [] No Acute blood loss anemia/consumptive thrombocytopenia Plan: Patient status: ICU Stop PO amio, will place back on amio gtt. -Bolus x1. Carvedilol 3.125mg BID. Amlodipine 10mg daily. Cardura 2mg daily. Flomax, will discontinue prior to DC. -Continue home Cardura. Bumex gtt 1mg/hr. -Consider switching to IV pushes. -Monitor BMP q6h. -Monitor creatinine closely. Increasing O2 needs, infectious workup - thus far. Precedex for confusion/agitation/delirium. -Per nursing, did sleep overnight. -Given valproic acid d/t prolonged qTC. Out of bed, progressive mobility as able. Encourage PO intake. GI prophy: PO protonix DVT prophy:TEDs, SCDs, and Heparin SubQ Pulmonary hygiene: IS and Acapella Consults: Endocrinology following. PT/OT: Home with home health (08/05/24) TCC/Discharge Planning: TBD. Central Line: [x]Yes [] No Arterial Line: []Yes [x] No Iyer: []Yes [x] No Restraints: []Yes [x] No Patient discussed and plan of day developed from multidisciplinary rounds between Cardiothoracic Surgery (Cardiothoracic Surgeon, ENMA) and Critical Care Attending Critical Care time spent 20 minutes. The time involved in the performance of this care was exclusive of separately billable procedures, teaching time and treating other patients. The time was spent personally by myself for the following activities: examination of the patient, ordering and/or performing treatment, reviewing the laboratory and radiographic studies, and if applicable, ventilator management and blood gas interpretation. Cardiac Core Medications: Not indicated due to type of surgery EF: 74% (07/04/24) Blood Conservation: None noted in post-operative period Re Recording Mixer: Dr. Bragg Cosigned by Bienvenido Rodriguez MD at 08/08/2024 7:50 PM EDT Associated attestation - Bienvenido Rodriguez MD - 08/08/2024 7:50 PM EDT I have personally seen the patient and examined along with the ENMA/resident team. I personally obtained the velarde and relevent portions of the history and performed physical exam. I reviewed the chart including MAR , labs and radiology and discussed the patient's plan of action with the resident/ENMA.This note reflects my plan of care as I have edited the note to reflect my findings and my assessment and plan. Date of service: 08/08/24 Discussed with: []Residents [x]Patient/Family [x]RN [x]Consultants []SW/TCC []Other [x]ENMA Personally Reviewed: [x]Epic notes [x]Radiology studies [x]Labs []EKG []Other In addition to resident/ENMA documentation pertinent History, ROS, and/or Physical Exam findings include: 64 year-old male s/p ascending aortic aneurysm repair, aortic root replacement. Post-op coursecomplicated by ICU delirium. Assessment: -Aortic aneurysm s/p valve sparing aortic root replacement -NICM -pAF -SONIA -HTN -Prior stroke Plan: -Continue ICU delirium bundle -Nocturnal precedex supplemented with Saphris -continue diuresis -Encourage nightly PAP, current refusing -Remainder as per ENMA documentation * Tesha Rodriguez APRN - NICOLE - 08/07/2024 10:37 AM EDT Department of Internal Medicine Division of Endocrinology, Diabetes, & Metabolism Endocrinology Note Patient Name: Erickson Riggs : 1960 AGE: 64 y.o. Room/Bed: T1-118/T1-118 A Admission Date: 08/03/2024 Visit Date: 08/07/2024 Reason for Endocrine Consult: post heart Provider/Team Requesting Consult: cts PCP: [facility] [employer] Supervisor: No ASSESSMENT: New onset DM2 with hyperglycemia without correction insulin, A1c 7.4% Stress hyperglycemia Steroid induced hyperglycemia Aortic root replacement on 08-03-24 HTN Alcohol and nicotine use Morbid obesity Body mass index is 48.26 kg/m . PLAN: Continue Lantus 30 units - changed to AM dosing Continue Humalog 01/06/10 Continue humalog moderate dose sliding scale with meals ICU goal <180 GMF goal <150 POCT BG ACHS-q1 on gtt Hypoglycemia management per protocol Carb controlled diet once tolerates ANTICIPATED ENDOCRINE HOME GOING RECOMMENDATIONS: Optimized for Discharge from Endocrine standpoint: No Home Going Endocrine Rx Recommendations-- Tbd-Per Meds to beds has no prescription drug coverage Consider metformin and possibly relion [employer] pens Could benefit from sglt2 vs glp1 -although will likely not be covered Glucometer, lancets, test trips, alcohol pads Outpt Follow Up-- PCP SUBJECTIVE/HPI: CHIEF COMPLAINT: No chief complaint on file. S/p aortic root repair A1c elevated, did not see any hx of dm2 or diabetes meds in chart review New onset DM2, states family history mother has DM2 he knows a little bit about diabetes Discussed A1c Interval events-08/07/2024 Bgl below- remain stable He is awake, takative but confused and agrumentative SOB is increased Tachycardic On precedex and Bumex drip Type of DM: 2 Onset of DM: not clear Home DM Medication Regimen: none DM control (last A1c/glucose data): Lab Results Component Value Date HGBA1C 7.4 (H) 07/27/2024 Glucose Date/Time Value Ref Range Status 08/07/2024 09:15 AM 141 (H) 70 - 100 mg/dL Final 08/06/2024 08:37 PM 135 (H) 70 - 100 mg/dL Final 08/06/2024 03:28 PM 144 (H) 70 - 100 mg/dL Final 08/06/2024 11:15 AM 141 (H) 70 - 100 mg/dL Final 08/06/2024 06:06 AM 181 (H) 70 - 100 mg/dL Final 08/05/2024 10:30 PM 192 (H) 70 - 100 mg/dL Final Review of Systems ROS negative except for those mentioned in HPI. OBJECTIVE: Vitals: 08/07/24 0800 08/07/24 0900 08/07/24 1016 08/07/24 1019 BP: 101/75 105/74 BP Location: Patient Position: Pulse: 107 89 Resp: 20 20 Temp: TempSrc: SpO2: 97% 91% Weight: Height: PF: Physical Exam Vitals and nursing note reviewed. Constitutional: General: He is not in acute distress. Appearance: He is morbidly obese. He is ill-appearing. He is not toxic-appearing. Interventions: Nasal cannula in place. HENT: Head: Normocephalic. Nose: Nose normal. Cardiovascular: Rate and Rhythm: Normal rate. Pulmonary: Effort: Pulmonary effort is normal. Abdominal: Tenderness: There is no guarding. Skin: General: Skin is warm and dry. Coloration: Skin is pale. Findings: Bruising present. Comments: Intact incision Neurological: Mental Status: He is alert and oriented to person, place, and time. Psychiatric: Mood and Affect: Mood normal. Behavior: Behavior normal. Behavior is cooperative. 24 hour intake/output: Intake/Output Summary (Last 24 hours) at 08/07/2024 1037 Last data filed at 08/07/2024 0500 Gross per 24 hour Intake 3246 ml Output 2125 ml Net 1121 ml Diet: Adult diet Regular; 5 carb choices (75 gm/meal) Medications (as per EMR): HomeMeds: Current Outpatient Medications Medication Instructions amLODIPine (NORVASC) 10 mg, Daily doxazosin (Cardura) 2 MG tablet 1 tablet, Nightly metoprolol tartrate (LOPRESSOR) 25 mg, 2 times daily Scheduled Meds:acetaminophen, 1,000 mg, Oral, q8h amiodarone, 400 mg, Oral, BID amLODIPine, 10 mg, Oral, Daily carvedilol, 3.125 mg, Oral, BID WC chlorhexidine, , Topical, Daily doxazosin, 2 mg, Oral, Daily heparin, 5,000 Units, SubCUTAneous, BID insulin glargine, 30 Units, SubCUTAneous, q24h insulin lispro, 0-12 Units, SubCUTAneous, TID WC insulin lispro, 10 Units, SubCUTAneous, TID WC Lidocaine, 1 patch, Topical, Daily pantoprazole, 40 mg, Oral, qAM AC polyethylene glycol (PEG) 3350, 17 g, Oral, Daily senna-docusate sodium, 2 tablet, Oral, Nightly sodium chloride 0.9%, 5-40 mL, IntraCATHeter, q8h tamsulosin, 0.4 mg, Oral, Daily Continuous Infusions:bumetanide, 1 mg/hr, Last Rate: 1 mg/hr (08/07/24 0947) dexmedeTOMIDine, 0.1-1.5 mcg/kg/hr, Last Rate: 0.8 mcg/kg/hr (08/07/24 1000) PRN Meds:PRN medications: calcium gluconate, dextrose, dextrose, glucagon (rDNA), glucose, hydrALAZINE, HYDROmorphone OR HYDROmorphone, ipratropium- albuterol, magnesium hydroxide, magnesium sulfate OR magnesium sulfate, melatonin, naloxone, ondansetron ODT OR ondansetron, oxyCODONE OR oxyCODONE, potassium chloride OR potassium chloride OR potassium chloride, potassium chloride CR, sodium chloride 0.9% Diagnostic Workup: I reviewed pertinent Laboratory results, Radiographic results, and Other Clinical Notes at the timeof today's encounter. Labs: No components found for: "LABA1C" No components found for: "EAG" Lab Results Component Value Date NA 131 (L) 08/07/2024 K 5.3 (H) 08/07/2024 CL 97 (L) 08/07/2024 CO2 25 08/07/2024 BUN 49 (H) 08/07/2024 CREATININE 1.47 (H) 08/07/2024 GLUCOSE 127 (H) 08/07/2024 CALCIUM 8.9 08/07/2024 No results found for: "CHLPL", "CHOL" No results found for: "TRIG" No results found for: "HDL" No results found for: "LDLCALC" No results found for: "VLDL" No results found for: "CHOLHDLRATIO" No results found for: "UQNF85JCT" No results found for: "TSH", "W1IOMBY", "C1SDNUR", "THYROIDAB" Radiology reportsas per the Radiologist Radiology: XR chest 1 view Result Date: 08/03/2024 [facility] 1960 [id number] Exam Date/Time: 08/03/2024 14:31 Procedure: XR CHEST 1 VIEW Ordering Provider: SOLANO RICHARD Reason For Exam: FOREIGN BODY; Confirm Needle Count AP CHEST X-RAY CLINICAL INDICATION: FOREIGN BODY;Confirm Needle Count TECHNIQUE: AP portable x-ray of the chest. COMPARISON: None FINDINGS: Intraoperative radiographs of the chest were obtained for incorrect instrument count. The patient has undergone open heart surgery with sternal wires and mediastinal drain. There is also a [place]-Brian catheter,ETT and NG tube. An atrial appendage clip is present. No radiopaque foreign body or instrument is id entified. The cardiomediastinal silhouette is enlarged. No evidence of a retained surgical instrument. Discussed with OR team at the time of exam completion. Report Dictated on Electronically Signed By: Adrian Alvarez MD Electronically Signed Date/Time: 08/03/2024 2:53 PM EDT History/Other: Past Medical History: Past Medical History: Diagnosis Date Alcohol abuse Aneurysm (HCC) Atrial fibrillation (HCC) Chronic bronchitis (HCC) CVA (cerebral vascular accident) (HCC) about 14 years ago per pt GERD (gastroesophageal reflux disease) Hypertension Nicotine abuse SONIA (obstructive sleep apnea) does not use cpap Paroxysmal supraventricular tachycardia (HCC) Shortness of breath Past Surgical History: Past Surgical History: Procedure Laterality Date CARDIAC CATHETERIZATION N/A 06/08/2024 Performed by Joe Timmons MD at [facility] Cardiac Cath/EP Lab CHOLECYSTECTOMY 2015 KIDNEY STONE SURGERY LUMBAR DISCECTOMY NEPHRECTOMY Right 1999 Allergy(ies): Allergies Allergen Reactions Penicillins Hives Other Reaction(s): GI upset, hives Hives or GI upset-patient unsure Aspirin Hives Other Reaction(s): GI Upset, GI upset, hives Family History: Family History Problem Relation Name Age of Onset Coronary artery disease Mother Heart attack Mother Coronary artery disease Father Heart attack Father Social History: Social History Tobacco Use Smoking status: Former Average packs/day: 1 pack/day for 18.0 years (18.0 ttl pk-yrs) Types: Cigarettes Start date: 2004 Smokeless tobacco: Never Vaping Use Vaping status: Never Used Substance Use Topics Alcohol use: Not Currently Comment: holidays/special occasions Drug use: Yes Frequency: 14.0 times per week Types: Marijuana Comment: smoking Portions of the information within this encounter were entered using an electronic dictation system. Best attempts were made to edit/proofread the information prior to note completion. Despite the review of information, some errors may remain. If there are questions related to the information contained within the note please contact the signing physician directly. I spent 35 minutes with the pt which involved coordination of care, medical evaluation, review of records, and/or counseling of the pt regarding his/her condition/disease state/prognosis on the date of this note. * GARY Giron CNP - 08/07/2024 6:04 AM EDT Images from the original note were not included. Cardiothoracic Surgery/[facility] Progress Note PATIENT NAME: Erickson Riggs DATE: 08/07/24 HPI: 64 yo male with PMH of HTN, aortic aneurysm, afib, cardiomyopathy, SONIA, former tobacco use, marijuana use, and solitary kidney. Pt follows with Cardiology who ordered an annual CTA chest which was completed on 04/26/24 and showed ascending thoracic aorta measures up to 5.2 cm. Previous CTA chest completed on 04/03/23 showed dilated ascending aorta measuring 4.7 cm. He was referred to Dr. Solano as an OP. He admits to being sedentary most of the time, washing dishes wears him out. Surgery/Procedure: 08/03/24: s/p valve sparing aortic root and ascending aorta replacement with 30mm Cardioroot graft, Left atrial appendage exlusion with 40mm Atriclip, ENRIQUE with Dr. Solano Interval History: 08/07/24, POD#5: Increase O2 requirements; on 15LNC; confusion overnight - stated "he thought he last night" and "he has been peeing blood". Precedex added; helped but when weaned --> confusion - pulling at leads and dsgs. Review of Systems Constitutional: Positive for activity change and fatigue. Negative for diaphoresis and fever. Respiratory: Positive for shortness of breath. Negative for cough and wheezing. Cardiovascular: Negative for chest pain, palpitations and leg swelling. Gastrointestinal: Negative for abdominal distention, constipation and diarrhea. Skin: Negative for color change, pallor and rash. Neurological: Negative for light-headedness. Psychiatric/Behavioral: Positive for confusion. Objective: UO cc/24hrs: 2625 Vitals: BP: 141/93, MAP (mmHg): 105, BP Method: Automatic Heart Rate: 109 Resp: 20 Temp: 36.1 C (96.9 F), Temp Source: Temporal BMI (Calculated): 48.25 CXR: BMP: Recent Labs 08/05/24 0321 08/05/24 1248 08/06/24 0007 08/06/24 1013 08/06/24 1523 08/07/24 0032 NA 130* < > 129* 127* 131* 131* K 4.8 < > 5.5* 5.7* 4.6 5.2* CL 102 < > 98 94* 101 95* CO2 19* < > 21* 22* 21* 25 BUN 26* < > 43* 44* 42* 47* CREATININE 1.31* < > 1.62* 1.36* 1.15 1.42* CALCIUM 8.9 < > 9.3 8.4* 8.1* 8.9 MG 2.4 -- 2.3 -- -- 2.3 < > = values in this interval not displayed. CBC: Recent Labs 08/04/24 1900 08/05/24 0321 08/06/24 0007 WBC -- 17.6* 18.5* HGB 11.7 11.4* 12.4* HCT -- 34.3* 38.6* PLT -- 127* 151 MCV -- 88.4 89.8 RDW -- 14.1 14.1 Physical Exam Constitutional: Appearance: He is morbidly obese. Interventions: Nasal cannula in place. Cardiovascular: Rate and Rhythm: Regular rhythm. Tachycardia present. Heart sounds: Normal heart sounds. No murmur heard. No friction rub. Pulmonary: Effort: Pulmonary effort is normal. Tachypnea present. Breath sounds: Decreased breath sounds and wheezing present. Musculoskeletal: Right lower leg: Edema present. Left lower leg: Edema present. Skin: General: Skin is warm and dry. Capillary Refill: Capillary refill takes less than 2 seconds. Findings: Bruising and ecchymosis present. Comments: Surgical Incisions: well approximate; clean dry with no drainage noted. Surrounding skin no redness, warmth, or signs of infection noted. Neurological: Mental Status: He is alert. Psychiatric: Behavior: Behavior is cooperative. Assessment: Aortic aneurysm s/p valve sparing aortic root replacement Afib Cardiomyopathy HTN SONIA S/p nephrectomy d/t tumor Former smoker Marijuana smoker Hx ischemic stroke Post operative Pulm Management: Normal Post-operative Course Post-operative Atrial Fibrillation: [x]Yes [] No Acute blood loss anemia/consumptive thrombocytopenia Plan: Patient Status: ICU Medications: Continue coreg Amio PO for now Precedex as needed - especially at HS for confusion/agitation Repeat Bumex - 2mg + albumin Start bumex gtt at 1mg Continue CCB, cardura, flomax GI prophy: PO protonix DVT prophy: Heparin SubQ Bowel: senna/miralax Interventions: Infectious workup - worsening CXR Trend CMP q6hrs CPAP Check EKG - ?afib already on amio Pulmonary hygiene: IS and Acapella TEDs, SCDs Lines/Drains: -CVC: 08/03 - maintain today Restraints: []Yes [x] No Consults: Endocrinology following- insulin management D/c recs: TBD Therapies: PT: home health OT: IPR Disposition: TBD Critical Care time spent 19 minutes. The time involved in the performance of this care was exclusive of separately billable procedures, teaching time and treating other patients. The time was spent personally by myself for the following activities: examination of the patient, ordering and/or performing treatment, reviewing the laboratory and radiographic studies, and if applicable, ventilator management and blood gas interpretation. Patient discussed and plan of day developed from multidisciplinary rounds between Cardiothoracic Surgery (Cardiothoracic Surgeon, ENMA) and Critical Care Attending Cardiac Core Medications: Not indicated due to type of surgery EF: 74% (07/04/24) Blood Conservation: None noted in post-operative period Re Recording Mixer: Dr. Bragg Cosigned by Benjamin Pillai MD at 08/07/2024 5:11 PM EDT Associated attestation - Benjamin Pillai MD - 08/07/2024 5:11 PM EDT I have personally performed a [id number] diagnostic evaluation on this patient on date of [id number]/11/25. History, labs, imaging studies, and electronic medical record have been reviewed by me. This note documented by the []lead housekeeper [x]ENMA reflects my history, exam, and medical decision making. I have reviewed and agree with the care plan. Changes were made in the orders as necessary. ROS documentation was reviewed and negative unless otherwise stated in HPI. Assessment: Asc Ao aneurysm Ao root replace Post-op pulm manage, expected course H/o afib, CMP, SONIA/Obesity, chronic bronch, stroke, parox SVT, s/p nephrect (tumor) CKD Plan: Bumex gtt Would really benefit from nightly NIPPV but poor compliance HFNC, flow was down this afternoon bit improved through day Otw per ENMA note Time spent preparing to see the patient, obtaining/reviewing separately obtained history, completing an appropriate medical examination of the patient, ordering medications/tests/procedures, documenting clinical information on the EMR, and/or coordinating care is a subsequent visit: 35 minutes (Level II). * GARY Giron CNP - 08/06/2024 1:13 PM EDT Epicardial pacing wire cut without difficulty per protocol. Patient and nurse educated on possible complications. Patient tolerated well. Will continue to monitor. Chest tube assessed: no air leak, subcutaneous air noted. Chest tube removed without difficulty anddressing applied. Patient tolerated well. Patient and nurse educated on possible complications to observe for. Will continue to monitor. * GARY Cameron CNP - 08/06/2024 1:02 PM EDT Department of Internal Medicine Division of Endocrinology, Diabetes, & Metabolism Endocrinology Note Patient Name: Erickson Riggs : 1960 AGE: 64 y.o. Room/Bed: T1-118/T1-118 A Admission Date: 08/03/2024 Visit Date: 08/06/2024 Reason for Endocrine Consult: post heart Provider/Team Requesting Consult: cts PCP: [facility] [employer] Supervisor: No ASSESSMENT: New onset DM2 with hyperglycemia without correction insulin, A1c 7.4% Stress hyperglycemia Steroid induced hyperglycemia Aortic root replacement on 08-03-24 HTN Alcohol and nicotine use Morbid obesity Body mass index is 48.09 kg/m . PLAN: Continue Lantus 30 units Continue Humalog 01/06/10 Continue humalog moderate dose sliding scale with meals ICU goal <180 GMF goal <150 POCT BG ACHS-q1 on gtt Hypoglycemia management per protocol Carb controlled diet once tolerates ANTICIPATED ENDOCRINE HOME GOING RECOMMENDATIONS: Optimized for Discharge from Endocrine standpoint: No Home Going Endocrine Rx Recommendations-- Tbd-Per Meds to beds has no prescription drug coverage Consider metformin and possibly relion [employer] pens Could benefit from sglt2 vs glp1 -although will likely not be covered Glucometer, lancets, test trips, alcohol pads Outpt Follow Up-- PCP SUBJECTIVE/HPI: CHIEF COMPLAINT: No chief complaint on file. S/p aortic root repair A1c elevated, did not see any hx of dm2 or diabetes meds in chart review New onset DM2, states family history mother has DM2 he knows a little bit about diabetes Discussed A1c Interval events Bgl below- remain stable and lowering He is awake alert, Sitting in chair SOB in appearance States that Abdominal pain is improving Type of DM: 2 Onset of DM: not clear Home DM Medication Regimen: none DM control (last A1c/glucose data): Lab Results Component Value Date HGBA1C 7.4 (H) 07/27/2024 Glucose Date/Time Value Ref Range Status 08/06/2024 11:15 AM 141 (H) 70 - 100 mg/dL Final 08/06/2024 06:06 AM 181 (H) 70 - 100 mg/dL Final 08/05/2024 10:30 PM 192 (H) 70 - 100 mg/dL Final 08/05/2024 03:44 PM 214 (H) 70 - 100 mg/dL Final 08/05/2024 12:53 PM 179 (H) 70 - 100 mg/dL Final 08/05/2024 11:56 AM 164 (H) 70 - 100 mg/dL Final Review of Systems ROS negative except for those mentioned in HPI. OBJECTIVE: Vitals: 08/06/24 0730 08/06/24 0855 08/06/24 0910 08/06/24 1100 BP: 144/88 133/90 BP Location: Right arm Right arm Patient Position: Sitting Sitting Pulse: 118 116 Resp: 18 18 Temp: 36.4 C (97.6 F) 36.4 C (97.5 F) TempSrc: Temporal Temporal SpO2: 95% 97% Weight: Height: PF: Physical Exam Vitals and nursing note reviewed. Constitutional: General: He is not in acute distress. Appearance: He is morbidly obese. He is ill-appearing. He is not toxic-appearing. Interventions: Nasal cannula in place. HENT: Head: Normocephalic. Nose: Nose normal. Cardiovascular: Rate and Rhythm: Normal rate. Pulmonary: Effort: Pulmonary effort is normal. Abdominal: Tenderness: There is no guarding. Skin: General: Skin is warm and dry. Coloration: Skin is pale. Findings: Bruising present. Comments: Intact incision Neurological: Mental Status: He is alert and oriented to person, place, and time. Psychiatric: Mood and Affect: Mood normal. Behavior: Behavior normal. Behavior is cooperative. 24 hour intake/output: Intake/Output Summary (Last 24 hours) at 08/06/2024 1302 Last data filed at 08/06/2024 1208 Gross per 24 hour Intake 2701 ml Output 1690 ml Net 1011 ml Diet: Adult diet Regular; 5 carb choices (75 gm/meal) Medications (as per EMR): HomeMeds: Current Outpatient Medications Medication Instructions amLODIPine (NORVASC) 10 mg, Daily doxazosin (Cardura) 2 MG tablet 1 tablet, Nightly metoprolol tartrate (LOPRESSOR) 25 mg, 2 times daily Scheduled Meds:acetaminophen, 1,000 mg, Oral, q8h amiodarone, 400 mg, Oral, BID amLODIPine, 10 mg, Oral, Daily carvedilol, 3.125 mg, Oral, BID WC chlorhexidine, , Topical, Daily doxazosin, 2 mg, Oral, Daily heparin, 5,000 Units, SubCUTAneous, BID insulin glargine, 30 Units, SubCUTAneous, q24h insulin lispro, 0-12 Units, SubCUTAneous, TID WC insulin lispro, 10 Units, SubCUTAneous, TID WC Lidocaine, 1 patch, Topical, Daily mupirocin, , Nasal, BID pantoprazole, 40 mg, Oral, qAM AC polyethylene glycol (PEG) 3350, 17 g, Oral, Daily senna-docusate sodium, 2 tablet, Oral, Nightly sodium chloride 0.9%, 5-40 mL, IntraCATHeter, q8h tamsulosin, 0.4 mg, Oral, Daily Continuous Infusions:lactated ringers, 250 mL nitroprusside, 0.1-3 mcg/kg/min, Last Rate: Stopped (08/05/24 1115) PRN Meds:PRN medications: albumin human, calcium gluconate, dextrose, dextrose, glucagon (rDNA), glucose, hydrALAZINE, HYDROmorphone OR HYDROmorphone, ipratropium-albuterol, lactated ringers, magnesium hydroxide, magnesium sulfate OR magnesium sulfate, melatonin, naloxone, nitroprusside, ondansetron ODT OR ondansetron, oxyCODONE OR oxyCODONE, potassium chloride OR potassium chloride OR potassium chloride, potassium chloride CR, sodium chloride 0.9% Diagnostic Workup: I reviewed pertinent Laboratory results, Radiographic results, and Other Clinical Notes at the timeof today's encounter. Labs: No components found for: "LABA1C" No components found for: "EAG" Lab Results Component Value Date NA 127 (L) 08/06/2024 K 5.7 (H) 08/06/2024 CL 94 (L) 08/06/2024 CO2 22 (L) 08/06/2024 BUN 44 (H) 08/06/2024 CREATININE 1.36 (H) 08/06/2024 GLUCOSE 171 (H) 08/06/2024 CALCIUM 8.4 (L) 08/06/2024 No results found for: "CHLPL", "CHOL" No results found for: "TRIG" No results found for: "HDL" No results found for: "LDLCALC" No results found for: "VLDL" No results found for: "CHOLHDLRATIO" No results found for: "SJAD46YXD" No results found for: "TSH", "I1LDWIU", "T7MMCCW", "THYROIDAB" Radiology reportsas per the Radiologist Radiology: XR chest 1 view Result Date: 08/03/2024 Patient Name: ERICKSON RIGGS : 1960 [facility]#: [id number] Exam Date/Time: 08/03/2024 14:31 Procedure: XR CHEST 1 VIEW Ordering Provider: SOLANO RICHARD Reason For Exam: FOREIGN BODY; Confirm Needle Count AP CHEST X-RAY CLINICAL INDICATION: FOREIGN BODY;Confirm Needle Count TECHNIQUE: AP portable x-ray of the chest. COMPARISON: None FINDINGS: Intraoperative radiographs of the chest were obtained for incorrect instrument count. The patient has undergone open heart surgery with sternal wires and mediastinal drain. There is also a [place]-Brian catheter,ETT and NG tube. An atrial appendage clip is present. No radiopaque foreign body or instrument is id entified. The cardiomediastinal silhouette is enlarged. No evidence of a retained surgical instrument. Discussed with OR team at the time of exam completion. Report Dictated on Electronically Signed By: Adrian Alvarez MD Electronically Signed Date/Time: 08/03/2024 2:53 PM EDT History/Other: Past Medical History: Past Medical History: Diagnosis Date Alcohol abuse Aneurysm (HCC) Atrial fibrillation (HCC) Chronic bronchitis (HCC) CVA (cerebral vascular accident) (HCC) about 14 years ago per pt GERD (gastroesophageal reflux disease) Hypertension Nicotine abuse SONIA (obstructive sleep apnea) does not use cpap Paroxysmal supraventricular tachycardia (HCC) Shortness of breath Past Surgical History: Past Surgical History: Procedure Laterality Date CARDIAC CATHETERIZATION N/A 06/08/2024 Performed by Joe Timmons MD at [facility] Cardiac Cath/EP Lab CHOLECYSTECTOMY 2015 KIDNEY STONE SURGERY LUMBAR DISCECTOMY NEPHRECTOMY Right 1998 Allergy(ies): Allergies Allergen Reactions Penicillins Hives Other Reaction(s): GI upset, hives Hives or GI upset-patient unsure Aspirin Hives Other Reaction(s): GI Upset, GI upset, hives Family History: Family History Problem Relation Name Age of Onset Coronary artery disease Mother Heart attack Mother Coronary artery disease Father Heart attack Father Social History: Social History Tobacco Use Smoking status: Former Average packs/day: 1 pack/day for 18.0 years (18.0 ttl pk-yrs) Types: Cigarettes Start date: 2004 Smokeless tobacco: Never Vaping Use Vaping status: Never Used Substance Use Topics Alcohol use: Not Currently Comment: holidays/special occasions Drug use: Yes Frequency: 14.0 times per week Types: Marijuana Comment: smoking Portions of the information within this encounter were entered using an electronic dictation system. Best attempts were made to edit/proofread the information prior to note completion. Despite the review of information, some errors may remain. If there are questions related to the information contained within the note please contact the signing physician directly. I spent 35 minutes with the pt which involved coordination of care, medical evaluation, review of records, and/or counseling of the pt regarding his/her condition/disease state/prognosis on the date of this note. * GARY Giron CNP - 08/06/2024 8:45 AM EDT Images from the original note were not included. Cardiothoracic Surgery/[facility] Progress Note PATIENT NAME: Erickson Riggs DATE: 08/06/24 HPI: 64 yo male with PMH of HTN, aortic aneurysm, afib, cardiomyopathy, SONIA, former tobacco use, marijuana use, and solitary kidney. Pt follows with Cardiology who ordered an annual CTA chest which was completed on 04/26/24 and showed ascending thoracic aorta measures up to 5.2 cm. Previous CTA chest completed on 04/03/23 showed dilated ascending aorta measuring 4.7 cm. He was referred to Dr. Solano as an OP. He admits to being sedentary most of the time, washing dishes wears him out. Surgery/Procedure: 08/03/24: s/p valve sparing aortic root and ascending aorta replacement with 30mm Cardioroot graft, Left atrial appendage exlusion with 40mm Atriclip, ENRIQUE with Dr. Solano Interval History: 08/06/24, POD# 3: ST rates low 100's - on 6LNC; felt like he was going to pass out after trying to void this morning. Seems to happen most with bending over. Has no issues with standing up. Drops sats but recovers after rest. Review of Systems Constitutional: Positive for activity change and fatigue. Negative for diaphoresis and fever. Respiratory: Positive for shortness of breath. Negative for cough and wheezing. Cardiovascular: Negative for chest pain, palpitations and leg swelling. Gastrointestinal: Negative for abdominal distention, constipation and diarrhea. Skin: Negative for color change, pallor and rash. Neurological: Positive for light-headedness. Objective: CT output cc/24hrs: 130 UO cc/24hrs: 1550 Vitals: BP: 144/88, MAP (mmHg): 102, BP Method: Automatic Heart Rate: 117 Resp: 18 Temp: 36.4 C (97.6 F), Temp Source: Temporal BMI (Calculated): 48.08 Pacer Wires: v wires CXR: BMP: Recent Labs 08/04/24 0026 08/04/24 0149 08/05/24 0321 08/05/24 1248 08/06/24 0007 NA 136 < > 130* 130* 129* K 6.0* < > 4.8 4.5 5.5* CL 109* < > 102 103 98 CO2 16* < > 19* 17* 21* BUN 16 < > 26* 28* 43* CREATININE 1.14 < > 1.31* 1.53* 1.62* CALCIUM 8.2* < > 8.9 8.5* 9.3 MG 3.0* -- 2.4 -- 2.3 < > = values in this interval not displayed. CBC: Recent Labs 08/04/24 0026 08/04/24 1900 08/05/24 0321 08/06/24 0007 WBC 14.0* -- 17.6* 18.5* HGB 11.2* 11.7 11.4* 12.4* HCT 34.6* -- 34.3* 38.6* PLT 133* -- 127* 151 MCV 88.9 -- 88.4 89.8 RDW 13.6 -- 14.1 14.1 INR: Recent Labs 08/03/24 1519 08/04/24 0026 INR 1.1 1.0 Physical Exam Constitutional: Appearance: He is morbidly obese. Interventions: Nasal cannula in place. Cardiovascular: Rate and Rhythm: Regular rhythm. Tachycardia present. Heart sounds: Normal heart sounds. No murmur heard. No friction rub. Pulmonary: Effort: Pulmonary effort is normal. Tachypnea present. Breath sounds: Decreased breath sounds and wheezing present. Musculoskeletal: Right lower leg: Edema present. Left lower leg: Edema present. Skin: General: Skin is warm and dry. Capillary Refill: Capillary refill takes less than 2 seconds. Findings: Bruising and ecchymosis present. Comments: Surgical Incisions: well approximate; clean dry with no drainage noted. Surrounding skin no redness, warmth, or signs of infection noted. Neurological: Mental Status: He is alert. Psychiatric: Behavior: Behavior is cooperative. Assessment: Aortic aneurysm s/p valve sparing aortic root replacement Afib Cardiomyopathy HTN SONIA S/p nephrectomy d/t tumor Former smoker Marijuana smoker Hx ischemic stroke Post operative Pulm Management: Normal Post-operative Course Post-operative Atrial Fibrillation: []Yes [x] No Acute blood loss anemia/consumptive thrombocytopenia Plan: Patient Status: Telemetry Medications: Change BB from metoprolol to coreg Amio to PO Dose of Bumex - 2mg + albumin Continue CCB, cardura, flomax GI prophy: PO protonix DVT prophy: Heparin SubQ Bowel: senna/miralax Interventions: Check Urine studies Q6 BMPs Pulmonary hygiene: IS and Acapella TEDmatt, SCDs Lines/Drains: -CVC: 08/03 -Chest tubes: 7 - remove today Restraints: []Yes [x] No Consults: Endocrinology following- insulin management D/c recs: TBD Therapies: PT: home health OT: IPR Disposition: TBD Tele Status A total of 22 minutes were spent between the [id number] encounter, physical exam, reviewing the medical history, coordinating the patient's care, counseling/educating the patient, ordering medications/test/procedures, interpreting results and documenting clinical information in the patients electr on health record on the day of the encounter. The patient was seen and examined independently andrelevant data reviewed by myself. A full chart review was performed. Patient discussed and plan of day developed from multidisciplinary rounds between Cardiothoracic Surgery (Cardiothoracic Surgeon, [facility]) and Critical Care Attending Cardiac Core Medications: Not indicated due to type of surgery EF: 74% (07/04/24) Blood Conservation: None noted in post-operative period Re Recording Mixer: Dr. Bragg Cosigned by Benjamin Pillai MD at 08/06/2024 7:46 PM EDT * Anay Johnson, STEAM LOCOMOTIVE FIRER/FIREMAN - 08/05/2024 3:47 PM EDT Images from the original note were not included. PHYSICAL THERAPY [facility] Treatment Note Name/MRN: Erickson Riggs ([id number]) Date of : 1960 Age: 64 y.o. Room/Bed: T1-118/T1-118 A Discharge Recommendation: 24 hour supervision or assist, Home with Home health PT Other: TBD - has FWW and WC Prior Level of Function Prior Level of ADL Function: Independent Prior Level of Mobility: Independent; Device: None Prior Level of Transfers: Independent States he will be staying with his daughter upon discharge. She lives in a 1 level home with 5 steps to enter with hand rail and has tub/shower combo. Assessment Pt refused mobility this session. He was able to complete exercises while seated in the chair. No PT goals met this session. Recommend home with 24 hr assist and HHPT Subjective Pt is sitting up in the chair, agrees to PT with encouragement. Walked with RN a few hours ago, butis too tired to walk again. Pain: [place] Pain Ratin = Hurts little more Pain Location: chest/incision Medical Precautions: No active isolations Proper PPE donned/doffed in accordance with facility standards. Fall Risk: Nelson Fall Risk Score: 45 (High Risk) Precautions/Restrictions: Sternal Precautions: No lifting greater than 10 lbs. Ok for modified UE precautions using Keep Your Move in the Tube technique Overall Cognitive Status: WFL Overall Orientation Status: Oriented to Place and Oriented to Person Family/Caregiver Present: child(rere) Objective Exercises Exercises Comments: P&C exercises x 5 reps, I.S. 750-1000 mL Plan Continue acute PT per plan of care. Safety/Education Safety Safety Devices in place: All fall risk precautions in place, call light within reach, left in chair, and patient at risk for falls Restraints: No Education Education Given To: patient Education Provided: PT Role, PT Goals, Plan of Care, Precautions, and Discharge Recommendations Education Method: Verbal Barriers to Learning: None Education Outcome: Verbalized Understanding and Continued Education Needed Outcome Measures AM-PAC AM-PAC Inpatient Mobility Raw Score (No Stairs) : 15 JH-HLM -HLM Score: Bed activity Goals Patient Stated Goal: To go home Encounter Problems Encounter Problems (Active) Cardiac Patient will perform bed mobility with modified independence in order to improve independence and prepare for out of bed mobility. (Not Addressed) Start: 08/04/24 Expected End: 09/01/24 Patient will complete sit to stand transfer with modified independence to no assistive device in order to improve safety and prepare for out of bed mobility. (Not Addressed) Start: 08/04/24 Expected End: 09/01/24 Patient will ambulate 350 feet or ambulate 5 minutes with modified independence with RPE of 14 or lower. (Not Addressed) Start: 08/04/24 Expected End: 09/01/24 Patient will ascend and descend 5 stairs with supervision rail for balance only. (Not Addressed) Start: 08/04/24 Expected End: 09/01/24 Patient will be independent with P&C exercises. (Progressing) Start: 08/04/24 Expected End: 09/01/24 Patient will be independent with managing secretions and home walking program. (Progressing) Start: 08/04/24 Expected End: 09/01/24 Therapy Time Individual Co-treatment Time In 1528 Time Out 1540 Minutes 12 Timed Code Treatment Minutes: (TP) Anay Johnson STEAM LOCOMOTIVE FIRER/FIREMAN Cosigned by Melissa Allen, PT at 08/06/2024 8:01 AM EDT * Varsha Miller, OTR/L - 08/05/2024 9:59 AM EDT Images from the original note were not included. OCCUPATIONAL THERAPY [facility] Initial Evaluation Name/MRN: Erickson Riggs ([id number]) Evaluation Date: 08/05/2024 Date of : 1960 Admission Date: 08/03/2024 5:17 AM Age: 64 y.o. Room/Bed: T1-118/T1-118 A Discharge Recommendation: IP Rehab Equipment Needed: (TBD) Assessment IMPRESSION: 64 y/o male admitted for aortic aneurysm s/p valve sparing root replacement and atriclip placement on 08/03/24. Pt completes functional transfers and short distance mobility with CGA-min assist. Increased rest breaks required d/t significant decreased endurance. Pt unable to complete LB dressing, educated on LB dressing AE and energy conservation strategies. Pt lives alone, plans to discharge to daughter's temporarily but very limited by poor endurance. Pt reports has had difficultieswith ADLs for "years" but would benefit from continued therapy to maximize independence. Recommend IP rehab at discharge. Admitting Diagnosis: aortic aneurysm s/p valve sparing root replacement and atriclip placement on 08/03/24 Performance Deficits /Impairments: Increased Pain, Decreased Functional Mobility, Decreased ADL status, Decreased Strength, Decreased Safety Awareness, Decreased Endurance, and Decreased Balance Prognosis: Good Decision Making: Medium Complexity Subjective Pt sitting upright in chair, agreeable to OT. RN cleared pt for therapy. Pain: RN managing pain. 0-10 pain scale: 4/10 Location: chest/rib cage/incision Past Medical History: Past Medical History: Diagnosis Date Alcohol abuse Aneurysm (HCC) Atrial fibrillation (HCC) Chronic bronchitis (HCC) CVA (cerebral vascular accident) (HCC) about 14 years ago per pt GERD (gastroesophageal reflux disease) Hypertension Nicotine abuse SONIA (obstructive sleep apnea) does not use cpap Paroxysmal supraventricular tachycardia (HCC) Shortness of breath Past Surgical History: Past Surgical History: Procedure Laterality Date CARDIAC CATHETERIZATION N/A 06/08/2024 Performed by Joe Timmons MD at [facility] Cardiac Cath/EP Lab CHOLECYSTECTOMY 2015 KIDNEY STONE SURGERY LUMBAR DISCECTOMY NEPHRECTOMY Right 1998 Admission Diagnosis: Patient Active Problem List Diagnosis Date Noted Aneurysm of the ascending aorta, without rupture (HCC) 08/03/2024 History of motion sickness 07/27/2024 Difficult intravenous access 07/27/2024 Chronic obstructive pulmonary disease (HCC) 07/27/2024 SONIA (obstructive sleep apnea) 07/27/2024 HTN (hypertension) 07/27/2024 Paroxysmal atrial fibrillation ([facility]) 07/27/2024 CVA (cerebral vascular accident) ([facility]) 07/27/2024 Aneurysm of ascending aorta without rupture ([facility]) 06/01/2024 Medical Precautions: No active isolations Proper PPE donned/doffed in accordance with facility standards. Fall Risk: Nelson Fall Risk Score: 45 (High Risk) Precautions/Restrictions: Sternal Precautions: No lifting greater than 10 lbs. Ok for modified UE precautions using Keep Your Move in the Tube technique Lines/Drains/Airways: tele, art line LUE, continuous pulse ox, pacing wires, chest tube, iyer Skin care precautions Family/Caregiver Present: none Overall Cognitive Status: WFL Overall Orientation Status: Oriented x4 Social/Functional History Patient admitted from home. Lives With: Alone Type of Home: apartment Home Layout: Single Level Home Home Access: Level Entry Bathroom Shower/Tub: Tub/Shower Combo Toilet: Standard Home Equipment: front wheeled walker and wheelchair - manual Homemaking Responsibilities: Independent Receives Help From: None Active Entry Table Operator: Yes Prior Level of Function Prior Level of ADL Function: Independent Prior Level of Mobility: Independent; Device: None Prior Level of Transfers: Independent Objective ADLs LE Dressing: Dependent, socks and to thread LB dressing; educated on LB dressing AE and energy conservation strategies, pt receptive and agreeable to further education Toileting: pt able to utilize urinal with setup; infer would need greater assist for hyun hygiene following BM UE Dressing: Mod Assist Feeding: Modified Independent, after setup Upper Extremity Assessment AROM: Exceptions: generally WFL, pt limited by chest pain but educated on move in the tube technique for UB dressing PROM: Not assessed this session Strength: Exceptions: not formally assessed d/t sternal precautions Bed Mobility Pt up in chair upon arrival Transfers/Mobility Sit to stand: Contact Guard Stand to sit: Contact Guard Standing balance: Contact Guard Functional mobility: Min Assist Pt completes sit <> stand 3 trials with CGA and good compliance sternal precautions. Pt becomes dizzy in standing, increased rest breaks to reduce SOB. Pt takes short steps froward/backward with increased time to recover with min assist and no device. Device(s) used: None Vision: wears glasses for reading and and are NOT being used during the eval Hearing: normal AM-PAC AM-PAC Inpatient Daily Activity Raw Score: 17 ADL Inpatient CMS G-Code Modifier: CK Plan Pt would benefit from skilled acute OT services to address Strengthening, ROM, Gait Training, Balance Training, Self-Care/ADL Training, Functional Mobility Training, Endurance Training, Safety Education and Training, Equipment Evaluation/Education, and Home Management Training. Frequency: 3x/week for 4 weeks Barriers: Pain, Impaired balance, Lower extremity weakness, Upper extremity weakness, and Decreasedendurance Safety/Education Safety Safety Devices in place: All fall risk precautions in place, call light within reach, left in chair, nurse notified, and no alarms engaged upon entry Restraints: No Education Education Given To: patient Education Provided: OT Role, Plan of Care, Precautions, ADL Adaptive Strategies, Transfer Training,Energy Conservation, Equipment, Fall Prevention Education, Discharge Recommendations, and Benefits of Increasing Activity Education Method: Verbal Barriers to Learning: None Education Outcome: Verbalized Understanding Goals Patient Stated Goal: pain control Encounter Problems Encounter Problems (Active) Balance Patient will maintain static standing balance for 3 minutes with modified independence in order to demonstrate decreased risk of falling and in prep for ADLs. Start: 08/05/24 Expected End: 09/02/24 Dressings Lower Extremities Patient will dress lower body SUP with AE prn. Start: 08/05/24 Expected End: 09/02/24 Instrumental Activities of Daily Living Patient will implement energy conservation techniques during ADLs with no cues. Start: 08/05/24 Expected End: 09/02/24 Toileting Patient will complete toileting tasks with SUP. Start: 08/05/24 Expected End: 09/02/24 Transfers Patient will complete functional transfer with least restrictive device with supervision in order to prepare for ambulation. Start: 08/05/24 Expected End: 09/02/24 Therapy Time Individual Co-Treatment Co-Evaluation Time In 950 Time Out 1006 Minutes 15 VIC Carvalho/L Patient's Occupational Therapy Plan of Care supervision is transferred to a [facility] Occupational Therapist. Goals and/or treatment plan was established in collaboration with patient/family/other representatives. * Korin Nguyen, COMMERCIAL PEST CONTROL REPRESENTATIVE - PLUMBING MANAGER - 08/05/2024 9:21 AM EDT Department of Internal Medicine Division of Endocrinology, Diabetes, & Metabolism Endocrinology Note Patient Name: Erickson Riggs : 1960 AGE: 64 y.o. Room/Bed: [facility]118/[facility] A Admission Date: 08/03/2024 Visit Date: 08/05/2024 Reason for Endocrine Consult: post heart Provider/Team Requesting Consult: cts PCP: [facility] R[employer] Furnace Supervisor: No ASSESSMENT: New onset DM2 with hyperglycemia without correction insulin, A1c 7.4% Stress hyperglycemia Steroid induced hyperglycemia Aortic root replacement on 08-03-24 HTN Alcohol and nicotine use Morbid obesity Body mass index is 45.33 kg/m . PLAN: -Give Lantus 30 units x 1 now, stop insulin drip in 2 hours -Then start Lantus 30 units daily every 24 hours -Start Humalog moderate dose scale -Start Humalog 1010 units tid meals-hold if NPO or not eating -Noted received 4mg IV decadron in OR with anesthesia team - Diabetes education was complete ICU goal <180 GMF goal <150 POCT BG ACHS-q1 on gtt Hypoglycemia management per protocol Carb controlled diet once tolerates ANTICIPATED ENDOCRINE HOME GOING RECOMMENDATIONS: Optimized for Discharge from Endocrine standpoint: No Home Going Endocrine Rx Recommendations-- Tbd-Per Meds to beds has no prescription drug coverage Consider metformin and possibly relion [employer] pens Could benefit from sglt2 vs glp1 -although will likely not be covered Glucometer, lancets, test trips, alcohol pads Outpt Follow Up-- PCP SUBJECTIVE/HPI: CHIEF COMPLAINT: No chief complaint on file. S/p aortic root repair A1c elevated, did not see any hx of dm2 or diabetes meds in chart review New onset DM2, states family history mother has DM2 he knows a little bit about diabetes Discussed A1c Interval events 5-9: Blood sugar has been stable on insulin drip, rate is 4 units/h We will transition off today with Lantus He is eating well, currently eating lunch Denies nausea vomiting abdominal pain Chest tube in place He is on amiodarone and nitr. Gtts VSS awake alert pleasant cooperative Diabetes education completed yesterday He has no new questions at this time Spoke with nursing Events 5-8: Bgl below Stable on insulin gtt 7units /hr He is awake alert, extubated up in bed 02 nc VSS Eating first meal, for lunch a sandwich Does have some abdominal pain and nausea Chest tubes in place No pressors are on He states diabetes is new for him, discussed diabetes at length as well as his A1c and going home on medications and glucometer checks Will have perioperative educator see patient as well He lives in [place] and states that he will follow with his PCP there Spoke with nursing and team Type of DM: 2 Onset of DM: not clear Home DM Medication Regimen: none DM control (last A1c/glucose data): Lab Results Component Value Date HGBA1C 7.4 (H) 07/27/2024 Glucose Date/Time Value Ref Range Status 08/05/2024 08:11 AM 145 (H) 70 - 100 mg/dL Final 08/05/2024 07:02 AM 146 (H) 70 - 100 mg/dL Final 08/05/2024 06:10 AM 151 (H) 70 - 100 mg/dL Final 08/05/2024 05:06 AM 173 (H) 70 - 100 mg/dL Final 08/05/2024 04:13 AM 146 (H) 70 - 100 mg/dL Final 08/05/2024 03:10 AM 146 (H) 70 - 100 mg/dL Final Review of Systems ROS negative except for those mentioned in HPI. OBJECTIVE: Vitals: 08/05/24 0800 08/05/24 0810 08/05/24 0815 08/05/24 0830 BP: 130/56 BP Location: Left arm Patient Position: Sitting Pulse: 67 72 71 71 Resp: 22 (!) 26 24 (!) 26 Temp: 36.3 C (97.3 F) TempSrc: Temporal SpO2: 92% 94% 93% 93% Weight: Height: PF: Physical Exam Vitals and nursing note reviewed. Constitutional: General: He is not in acute distress. Appearance: He is morbidly obese. He is ill-appearing. He is not toxic-appearing. Interventions: Nasal cannula in place. HENT: Head: Normocephalic. Nose: Nose normal. Cardiovascular: Rate and Rhythm: Normal rate. Pulmonary: Effort: Pulmonary effort is normal. Abdominal: Tenderness: There is no guarding. Skin: General: Skin is warm and dry. Coloration: Skin is pale. Findings: Bruising present. Comments: Intact incision Neurological: Mental Status: He is alert and oriented to person, place, and time. Psychiatric: Mood and Affect: Mood normal. Behavior: Behavior normal. Behavior is cooperative. 24 hour intake/output: Intake/Output Summary (Last 24 hours) at 08/05/2024920 Last data filed at 08/05/2024799 Gross per 24 hour Intake 2767 ml Output 360 ml Net 2407 ml Diet: Adult diet Regular; 5 carb choices (75 gm/meal) Medications (as per EMR): HomeMeds: Current Outpatient Medications Medication Instructions amLODIPine (NORVASC) 10 mg, Daily doxazosin (Cardura) 2 MG tablet 1 tablet, Nightly metoprolol tartrate (LOPRESSOR) 25 mg, 2 times daily Scheduled Meds:acetaminophen, 1,000 mg, Oral, q8h amLODIPine, 10 mg, Oral, Daily chlorhexidine, , Topical, Daily chlorhexidine, 15 mL, Mouth/Throat, BID doxazosin, 2 mg, Oral, Daily Lidocaine, 1 patch, Topical, Daily metoprolol tartrate, 25 mg, Oral, BID mupirocin, , Nasal, BID pantoprazole, 40 mg, IntraVENous, Daily polyethylene glycol (PEG) 3350, 17 g, Oral, Daily senna-docusate sodium, 2 tablet, Oral, Nightly sodium chloride 0.9%, 5-40 mL, IntraCATHeter, q8h tamsulosin, 0.4 mg, Oral, Daily Continuous Infusions:amiodarone, 0.5 mg/min, Last Rate: 0.5 mg/min (08/05/24799) insulin regular, 1-50 Units/hr, Last Rate: 4 Units/hr (08/05/24810) lactated ringers, 250 mL nitroprusside, 0.1-3 mcg/kg/min, Last Rate: 1.25 mcg/kg/min (08/05/24829) sodium chloride, 20 mL/hr, Last Rate: 20 mL/hr (08/04/24816) PRN Meds:PRN medications: albumin human, calcium gluconate, dextrose, dextrose, glucagon (rDNA), glucose, hydrALAZINE, HYDROmorphone OR HYDROmorphone, ipratropium-albuterol, lactated ringers, magnesium hydroxide, magnesium sulfate OR magnesium sulfate, melatonin, naloxone, nitroprusside, ondansetron ODT OR ondansetron, oxyCODONE OR oxyCODONE, potassium chloride OR potassium chloride OR potassium chloride, potassium chloride CR, sodium chloride 0.9% Diagnostic Workup: I reviewed pertinent Laboratory results, Radiographic results, and Other Clinical Notes at the timeof today's encounter. Labs: No components found for: "LABA1C" No components found for: "EAG" Lab Results Component Value Date NA 130 (L) 08/05/2024 K 4.8 08/05/2024 CL 102 08/05/2024 CO2 19 (L) 08/05/2024 BUN 26 (H) 08/05/2024 CREATININE 1.31 (H) 08/05/2024 GLUCOSE 146 (H) 08/05/2024 CALCIUM 8.9 08/05/2024 No results found for: "CHLPL", "CHOL" No results found for: "TRIG" No results found for: "HDL" No results found for: "LDLCALC" No results found for: "VLDL" No results found for: "CHOLHDLRATIO" No results found for: "LBVK18WIV" No results found for: "TSH", "G6PSJGO", "S4UNZZL", "THYROIDAB" Radiology reportsas per the Radiologist Radiology: XR chest 1 view Result Date: 08/03/2024 Patient Name: ERICKSON RIGGS : 1960 [facility]#: [id number] Exam Date/Time: 08/03/2024 14:31 Procedure: XR CHEST 1 VIEW Ordering Provider: SOLANO RICHARD Reason For Exam: FOREIGN BODY; Confirm Needle Count AP CHEST X-RAY CLINICAL INDICATION: FOREIGN BODY;Confirm Needle Count TECHNIQUE: AP portable x-ray of the chest. COMPARISON: None FINDINGS: Intraoperative radiographs of the chest were obtained for incorrect instrument count. The patient has undergone open heart surgery with sternal wires and mediastinal drain. There is also a [place]-Brian catheter,ETT and NG tube. An atrial appendage clip is present. No radiopaque foreign body or instrument is id entified. The cardiomediastinal silhouette is enlarged. No evidence of a retained surgical instrument. Discussed with OR team at the time of exam completion. Report Dictated on Electronically Signed By: Adrian Alvarez MD Electronically Signed Date/Time: 08/03/2024 2:53 PM EDT History/Other: Past Medical History: Past Medical History: Diagnosis Date Alcohol abuse Aneurysm (HCC) Atrial fibrillation (HCC) Chronic bronchitis (HCC) CVA (cerebral vascular accident) (HCC) about 14 years ago per pt GERD (gastroesophageal reflux disease) Hypertension Nicotine abuse SONIA (obstructive sleep apnea) does not use cpap Paroxysmal supraventricular tachycardia (HCC) Shortness of breath Past Surgical History: Past Surgical History: Procedure Laterality Date CARDIAC CATHETERIZATION N/A 06/08/2024 Performed by Joe Timmons MD at [facility] Cardiac Cath/EP Lab CHOLECYSTECTOMY 2015 KIDNEY STONE SURGERY LUMBAR DISCECTOMY NEPHRECTOMY Right 1999 Allergy(ies): Allergies Allergen Reactions Penicillins Hives Other Reaction(s): GI upset, hives Hives or GI upset-patient unsure Aspirin Hives Other Reaction(s): GI Upset, GI upset, hives Family History: Family History Problem Relation Name Age of Onset Coronary artery disease Mother Heart attack Mother Coronary artery disease Father Heart attack Father Social History: Social History Tobacco Use Smoking status: Former Average packs/day: 1 pack/day for 18.0 years (18.0 ttl pk-yrs) Types: Cigarettes Start date: 2004 Smokeless tobacco: Never Vaping Use Vaping status: Never Used Substance Use Topics Alcohol use: Not Currently Comment: holidays/special occasions Drug use: Yes Frequency: 14.0 times per week Types: Marijuana Comment: smoking Portions of the information within this encounter were entered using an electronic dictation system. Best attempts were made to edit/proofread the information prior to note completion. Despite the review of information, some errors may remain. If there are questions related to the information contained within the note please contact the signing physician directly. I spent 35 minutes with the pt which involved coordination of care, medical evaluation, review of records, and/or counseling of the pt regarding his/her condition/disease state/prognosis on the date of this note. * GARY Farrell CNP - 08/05/2024 6:21 AM EDT Images from the original note were not included. Cardiothoracic Surgery/[facility] Progress Note PATIENT NAME: Erickson Riggs DATE: 08/05/24 HPI: 64 yo male with PMH of HTN, aortic aneurysm, afib, cardiomyopathy, SONIA, former tobacco use, marijuana use, and solitary kidney. Pt follows with Cardiology who ordered an annual CTA chest which was completed on 04/26/24 and showed ascending thoracic aorta measures up to 5.2 cm. Previous CTA chest completed on 04/03/23 showed dilated ascending aorta measuring 4.7 cm. He was referred to Dr. Solano as an OP. He admits to being sedentary most of the time, washing dishes wears him out. Surgery/Procedure: 08/03/24: Dr. Solano- Valve sparing aortic root replacement with 30mm, left atrial appendage exclusion, ENRIQUE Interval History: 08/05/24, POD# 02. Afebrile, NSR on tele this AM, remains in nitroprusside gtt, on 6L NC. Started PO medications and PRN IV hydralazine (only given 1x), went into afib but converted with amio. No urine output since iyer removed, difficult to bladder scan but reading about 300mL. Current IV Drips: Insulin- 4units/hr Nitroprusside- 0.75mcg/kg/min Amio- 1mg/min A-line: Arterial Line BP 1: 120/60 Invasive Hemodynamic Monitoring Blood Temperature: 36.6 C (97.9 F) PAP: 24/13 PAP (Mean): 17 mmHg CVP (mmHg): 267 mmHg CO (L/min): 6.37 L/min CI (L/min/m2): 2.39 L/min/m2 Objective: CT output cc/24hrs: 380 UO cc/24hrs: 167 Vitals: BP: 143/61, MAP (mmHg): 69, BP Method: Arterial line Heart Rate: 71 Resp: 23 Temp: 36.2 C (97.2 F), Temp Source: Temporal BMI (Calculated): 45.97 BMP: Recent Labs 08/03/24 1519 08/04/24 0026 08/04/24 0149 08/04/24 1514 08/04/24 2032 08/05/24 0321 NA 139 136 < > 133* 133* 130* K 4.0 6.0* < > 4.5 4.2 4.8 CL 109* 109* < > 105 103 102 CO2 24 16* < > 21* 21* 19* BUN 13 16 < > 19 22 26* CREATININE 1.07 1.14 < > 1.16 1.20 1.31* CALCIUM 8.9 8.2* < > 8.2* 8.5* 8.9 MG 4.1* 3.0* -- -- -- 2.4 < > = values in this interval not displayed. CBC: Recent Labs 08/03/24 15108/03/24 1521 08/04/24 0026 08/04/24 1900 08/05/24 0321 WBC 16.2* -- 14.0* -- 17.6* HGB 12.1* < > 11.2* 11.7 11.4* HCT 35.9* -- 34.6* -- 34.3* PLT 126* -- 133* -- 127* MCV 88.0 -- 88.9 -- 88.4 RDW 13.3 -- 13.6 -- 14.1 < > = values in this interval not displayed. INR: Recent Labs 08/03/24151808/04/24 0026 INR 1.1 1.0 Physical Exam Vitals reviewed. Constitutional: General: He is not in acute distress. Appearance: He is not ill-appearing or diaphoretic. Neck: Comments: Central line. Cardiovascular: Rate and Rhythm: Normal rate and regular rhythm. Pulses: Normal pulses. Heart sounds: No murmur heard. Pulmonary: Effort: Pulmonary effort is normal. Breath sounds: No wheezing, rhonchi or rales. Comments: Diminished bilaterally, shallow breathing. Abdominal: General: There is distension. Tenderness: There is no abdominal tenderness. Comments: Chest tubes. Musculoskeletal: General: Swelling present. Skin: General: Skin is warm and dry. Capillary Refill: Capillary refill takes 2 to 3 seconds. Findings: Bruising present. Comments: Surgical incisions well approximated. No redness, warmth or drainage noted. Neurological: General: No focal deficit present. Mental Status: He is alert and oriented to person, place, and time. Assessment: Aortic aneurysm s/p valve sparing aortic root replacement Afib Cardiomyopathy HTN SONIA S/p nephrectomy d/t tumor Former smoker Marijuana smoker Hx ischemic stroke Post operative Pulm Management: Normal Post-operative Course Post-operative Atrial Fibrillation: []Yes [x] No Acute blood loss anemia/consumptive thrombocytopenia Plan: Patient status: ICU Wean nitroprusside as able, goal SBP<140. -PRN hydralazine pushes q4h to assist in getting off drip. Increase amlodipine to 10mg daily (home dose). Add home cardura for retention and possible BP affects. Metoprolol 25mg BID. -Consider switching to coreg for better BP control. Keep arterial line until off of nitroprusside. Amio 0.5mg/min for today, switch to PO tomorrow. Straight cath this AM. Start flomax due to urinary retention. -If retention resolves, DC home on just Cardura. Lasix 60mg IV x1. Check BMP later today. Otherwise daily labs and CXR. Wean O2 as able, goal SpO2>92%. Out of bed for meals, progressive mobility. GI prophy: PO protonix DVT prophy:TEDs, SCDs, and Heparin SubQ Pulmonary hygiene: IS and Acapella Consults: Endocrinology following. PT/OT: Home with supervision (08/04/24) TCC/Discharge Planning: TBD. Central Line: [x]Yes [] No Arterial Line: [x]Yes [] No Iyer: []Yes [x] No Restraints: []Yes [x] No Patient discussed and plan of day developed from multidisciplinary rounds between Cardiothoracic Surgery (Cardiothoracic Surgeon, EN[facility]) and Critical Care Attending Critical Care time spent 25 minutes. The time involved in the performance of this care was exclusive of separately billable procedures, teaching time and treating other patients. The time was spent personally by myself for the following activities: examination of the patient, ordering and/or performing treatment, reviewing the laboratory and radiographic studies, and if applicable, ventilator management and blood gas interpretation. Cardiac Core Medications: Not indicated due to type of surgery EF: 74% (07/04/24) Blood Conservation: None noted in post-operative period Re Recording Mixer: Cosigned by Benjamin Pillai MD at 08/05/2024 5:35 PM EDT * Melissa Allen, PT - 08/04/2024 10:01 AM EDT Images from the original note were not included. PHYSICAL THERAPY [facility] Initial Evaluation Name/MRN: Erickson Riggs ([id number]) Evaluation Date: 08/04/2024 Date of : 1960 Admission Date: 08/03/2024 5:17 AM Age: 64 y.o. Room/Bed: T1-118/T1-118 A Discharge Recommendation: 24 hour supervision or assist, Outpatient PT Other: TBD - has FWW and WC Assessment IMPRESSION: Patient is a 64 yo admitted due to aortic aneurysm s/p valve sparing root replacement and atriclip placement on 08/03/24. Patient is limited by sternal pain and generalized weakness. Patient required min A for sit <> supine and min A for sit <> stand transfers. Patient able totake 3-4 steps toward bed without a device with min A. Patient will benefit from acute PT services to improve strength and independence with mobility. Anticipate home with 20/10 assist and outpatient PT. Admitting Diagnosis: aortic aneurysm s/p valve sparing root replacement and atriclip placement on 08/03/24 Prognosis: excellent Performance Deficits /Impairments: Increased Pain, Decreased Functional Mobility, Decreased ADL status, Decreased Strength, Decreased Endurance, Decreased Balance, and Decreased High Level IADLs Decision Making: Medium Complexity Subjective RN cleared patient for PT eval, requesting chair to bed transfer only. Patient up in chair, agreeable to therapy. Pain: states sternal pain ranges from 4-8/10 Past Medical History: Past Medical History: Diagnosis Date Alcohol abuse Aneurysm (HCC) Atrial fibrillation (HCC) Chronic bronchitis (HCC) CVA (cerebral vascular accident) (HCC) about 14 years ago per pt GERD (gastroesophageal reflux disease) Hypertension Nicotine abuse SONIA (obstructive sleep apnea) does not use cpap Paroxysmal supraventricular tachycardia (HCC) Shortness of breath Past Surgical History: Past Surgical History: Procedure Laterality Date CARDIAC CATHETERIZATION N/A 06/08/2024 Performed by Joe Timmons MD at [facility] Cardiac Cath/EP Lab CHOLECYSTECTOMY 2015 KIDNEY STONE SURGERY LUMBAR DISCECTOMY NEPHRECTOMY Right 1998 Admission Diagnosis: Patient Active Problem List Diagnosis Date Noted Aneurysm of the ascending aorta, without rupture (HCC) 08/03/2024 History of motion sickness 07/27/2024 Difficult intravenous access 07/27/2024 Chronic obstructive pulmonary disease (HCC) 07/27/2024 SONIA (obstructive sleep apnea) 07/27/2024 HTN (hypertension) 07/27/2024 Paroxysmal atrial fibrillation (HCC) 07/27/2024 CVA (cerebral vascular accident) (HCC) 07/27/2024 Aneurysm of ascending aorta without rupture (HCC) 06/01/2024 Medical Precautions: No active isolations Proper PPE donned/doffed in accordance with facility standards. Fall Risk: Nelson Fall Risk Score: 45 (Medium Risk) Precautions/Restrictions: Sternal Precautions: No lifting greater than 10 lbs. Ok for modified UE precautions using Keep Your Move in the Tube technique Lines/Drains/Airways: tele, art line LUE, continuous pulse ox, pacing wires, chest tube, iyer Skin care precautions Family/Caregiver Present: none Overall Cognitive Status: WFL Overall Orientation Status: Oriented x4 Social/Functional History Patient admitted from home. Lives With: Alone Type of Home: apartment Home Layout: Single Level Home Home Access: Level Entry Bathroom Shower/Tub: Tub/Shower Combo Toilet: Standard Home Equipment: front wheeled walker and wheelchair - manual Homemaking Responsibilities: Independent Receives Help From: None Active Entry Table Operator: Yes Prior Level of Function Prior Level of ADL Function: Independent Prior Level of Mobility: Independent; Device: None Prior Level of Transfers: Independent States he will be staying with his daughter upon discharge. She lives in a 1 level home with 5 steps to enter with hand rail and has tub/shower combo. Objective Bed Mobility Sit to supine: Min Assist Min A needed to assist with lifting BLE into bed Transfers/Mobility Sit to stand: Min Assist Stand to sit: Min Assist From recliner, good compliance with sternal precautions, decreased eccentric control with stand <> sit Device(s) used: None Ambulation Assistive device(s) used: None Assist level: Min Assist Distance (ft): took 3-4 steps toward bed Quality of gait: wide SHANTA, instability through all phases Balance During Session: Posture: fair Standing - Static: Stood with CGA, mild postural sway without LOB or buckling Hip Right Left AROM PROM AROM PROM Hip Flexion WFL WFL WFL WFL Hip Abduction Hip Extension Hip External Rotation (ER) Hip Internal Rotation (IR) Knee ROM Right Left AROM PROM AROM PROM Knee Flexion WFL WFL WFL WFL Knee Extension WFL WFL WFL WFL Ankle ROM Right Left AROM PROM AROM PROM Ankle Dorsiflexion (DF) WFL WFL WFL WFL Ankle Plantarflexion (PF) WFL WFL WFL WFL Outcome Measures AM-PAC How much HELP from another person do you currently need Turning from your back to your side while in a flat bed without using bedrails?: A Little Moving from lying on your back to sitting on the side of a flat bed without using bedrails?: A Little Moving to and from a bed to a chair (including a wheelchair)?: A Little Standing up from a chair using your arms (wheelchair or bedside chair)?: A Little Walking in a hospital room?: A Little Stair climbing assessed?: No AM-PAC Inpatient Mobility Raw Score (No Stairs) : 15 JH-HLM -HLM Score: Static standing (1 or more minutes) Plan Pt would benefit from skilled acute PT services to address Strengthening, Gait Training, Balance Training, Functional Mobility Training, Endurance Training, Safety Education and Training, Pain Management, Stair Training, Equipment Evaluation/Education, Neuromuscular Re-Education Training, and Patient/Caregiver Training. Frequency: 5x/week for 4 weeks Barriers: Pain, Impaired balance, Lower extremity weakness, Limited safety awareness, Decreased endurance, New weightbearing/ROM restrictions, Stairs at home, and Medical complications Safety/Education Safety Safety Devices in place: All fall risk precautions in place, call light within reach, left in chair, nurse notified, and no alarms engaged upon entry Restraints: No Education Education Given To: patient Education Provided: PT Role, PT Goals, Plan of Care, Precautions, and Discharge Recommendations Education Method: Verbal Barriers to Learning: None Education Outcome: Verbalized Understanding Goals Patient Stated Goal: To go home Encounter Problems Encounter Problems (Active) Cardiac Patient will perform bed mobility with modified independence in order to improve independence and prepare for out of bed mobility. Start: 08/04/24 Expected End: 09/01/24 Patient will complete sit to stand transfer with modified independence to no assistive device in order to improve safety and prepare for out of bed mobility. Start: 08/04/24 Expected End: 09/01/24 Patient will ambulate 350 feet or ambulate 5 minutes with modified independence with RPE of 14 or lower. Start: 08/04/24 Expected End: 09/01/24 Patient will ascend and descend 5 stairs with supervision rail for balance only. Start: 08/04/24 Expected End: 09/01/24 Patient will be independent with P&C exercises. Start: 08/04/24 Expected End: 09/01/24 Patient will be independent with managing secretions and home walking program. Start: 08/04/24 Expected End: 09/01/24 Therapy Time Individual Co-Treatment Co-Evaluation Time In 0844 Time Out 0857 Minutes 13 Melissa Allen PT Patient's Physical Therapy Plan of Care supervision is transferred to a [facility] Services Physical Therapist. Goals and/or treatment plan was established in collaboration with patient/family/other representatives. * Korin Nguyen, GARY - PLUMBING MANAGER - 08/04/2024 9:38 AM EDT Department of Internal Medicine Division of Endocrinology, Diabetes, & Metabolism Endocrinology Note Patient Name: Erickson Riggs : 1960 AGE: 64 y.o. Room/Bed: T1-118/T1-118 A Admission Date: 08/03/2024 Visit Date: 08/04/2024 Reason for Endocrine Consult: post heart Provider/Team Requesting Consult: cts PCP: [facility] [employer] Supervisor: No ASSESSMENT: New onset DM2 with hyperglycemia without correction insulin, A1c 7.4% Stress hyperglycemia Steroid induced hyperglycemia Aortic root replacement on 08-03-24 HTN Alcohol and nicotine use Morbid obesity Body mass index is 45.98 kg/m . PLAN: -Continue on insulin gtt per protocol for now, he is on a high rate -Noted received 4mg IV decadron in OR with anesthesia team - Requires diabetes education ICU goal <180 GMF goal <150 POCT BG ACHS-q1 on gtt Hypoglycemia management per protocol Carb controlled diet once tolerates ANTICIPATED ENDOCRINE HOME GOING RECOMMENDATIONS: Optimized for Discharge from Endocrine standpoint: No Home Going Endocrine Rx Recommendations-- Tbd-Per Meds to beds has no prescription drug coverage Consider metformin and possibly relion [employer] pens Could benefit from sglt2 vs glp1 -although will likely not be covered Glucometer, lancets, test trips, alcohol pads Outpt Follow Up-- PCP SUBJECTIVE/HPI: CHIEF COMPLAINT: No chief complaint on file. S/p aortic root repair A1c elevated, did not see any hx of dm2 or diabetes meds in chart review New onset DM2, states family history mother has DM2 he knows a little bit about diabetes Discussed A1c Bgl below Stable on insulin gtt 7units /hr He is awake alert, extubated up in bed 02 nc VSS Eating first meal, for lunch a sandwich Does have some abdominal pain and nausea Chest tubes in place No pressors are on He states diabetes is new for him, discussed diabetes at length as well as his A1c and going home on medications and glucometer checks Will have perioperative educator see patient as well He lives in [place] and states that he will follow with his PCP there Spoke with nursing and team Type of DM: 2 Onset of DM: not clear Home DM Medication Regimen: none DM control (last A1c/glucose data): Lab Results Component Value Date HGBA1C 7.4 (H) 07/27/2024 Glucose Date/Time Value Ref Range Status 08/04/2024 09:00 AM 199 (H) 70 - 100 mg/dL Final 08/04/2024 08:10 AM 174 (H) 70 - 100 mg/dL Final 08/04/2024 07:09 AM 185 (H) 70 - 100 mg/dL Final 08/04/2024 06:08 AM 203 (H) 70 - 100 mg/dL Final 08/04/2024 05:06 AM 209 (H) 70 - 100 mg/dL Final 08/04/2024 04:32 AM 214 (H) 70 - 100 mg/dL Final Review of Systems ROS negative except for those mentioned in HPI. OBJECTIVE: Vitals: 08/04/24 0730 08/04/24 0745 08/04/24 0816 08/04/24 0824 BP: 150/69 124/58 BP Location: Patient Position: Pulse: 81 81 82 Resp: 16 17 Temp: TempSrc: SpO2: Weight: Height: PF: Physical Exam Vitals and nursing note reviewed. Constitutional: General: He is not in acute distress. Appearance: He is morbidly obese. He is ill-appearing. He is not toxic-appearing. Interventions: Nasal cannula in place. HENT: Head: Normocephalic. Nose: Nose normal. Cardiovascular: Rate and Rhythm: Normal rate. Pulmonary: Effort: Pulmonary effort is normal. Abdominal: Tenderness: There is no guarding. Skin: General: Skin is warm and dry. Coloration: Skin is pale. Findings: Bruising present. Comments: Intact incision Neurological: Mental Status: He is alert and oriented to person, place, and time. Psychiatric: Mood and Affect: Mood normal. Behavior: Behavior normal. Behavior is cooperative. 24 hour intake/output: Intake/Output Summary (Last 24 hours) at 08/04/2024 0938 Last data filed at 08/04/2024 0857 Gross per 24 hour Intake 2128 ml Output 1597 ml Net 531 ml Diet: Adult diet Regular; 5 carb choices (75 gm/meal) Medications (as per EMR): HomeMeds: Current Outpatient Medications Medication Instructions amLODIPine (NORVASC) 10 mg, Daily doxazosin (Cardura) 2 MG tablet 1 tablet, Nightly metoprolol tartrate (LOPRESSOR) 25 mg, 2 times daily Scheduled Meds:acetaminophen, 1,000 mg, Oral, q8h chlorhexidine, , Topical, Daily chlorhexidine, 15 mL, Mouth/Throat, BID Lidocaine, 1 patch, Topical, Daily metoprolol tartrate, 25 mg, Oral, BID mupirocin, , Nasal, BID pantoprazole, 40 mg, IntraVENous, Daily polyethylene glycol (PEG) 3350, 17 g, Oral, Daily senna-docusate sodium, 2 tablet, Oral, Nightly sodium chloride 0.9%, 5-40 mL, IntraCATHeter, q8h vancomycin, 15 mg/kg, IntraVENous, q12h Continuous Infusions:insulin regular, 1-50 Units/hr, Last Rate: 7 Units/hr (08/04/24900) lactated ringers, 250 mL nitroprusside, 0.1-3 mcg/kg/min, Last Rate: 0.7 mcg/kg/min (08/04/24815) sodium chloride, 20 mL/hr, Last Rate: 20 mL/hr (08/04/24816) PRN Meds:PRN medications: albumin human, calcium gluconate, dextrose, dextrose, glucagon (rDNA), glucose, HYDROmorphone OR HYDROmorphone, ipratropium- albuterol, lactated ringers, magnesium hydroxide, magnesium sulfate OR magnesium sulfate, naloxone, nitroprusside, ondansetron ODT OR ondansetron, oxyCODONE OR oxyCODONE, potassium chloride OR potassium chloride OR potassium chloride, potassium chloride CR, sodium chloride 0.9% Diagnostic Workup: I reviewed pertinent Laboratory results, Radiographic results, and Other Clinical Notes at the timeof today's encounter. Labs: No components found for: "LABA1C" No components found for: "EAG" Lab Results Component Value Date NA 136 08/04/2024 K 4.8 08/04/2024 CL 109 (H) 08/04/2024 CO2 20 (L) 08/04/2024 BUN 16 08/04/2024 CREATININE 1.12 08/04/2024 GLUCOSE 200 (H) 08/04/2024 CALCIUM 8.2 (L) 08/04/2024 No results found for: "CHLPL", "CHOL" No results found for: "TRIG" No results found for: "HDL" No results found for: "LDLCALC" No results found for: "VLDL" No results found for: "CHOLHDLRATIO" No results found for: "QDSR11NJY" No results found for: "TSH", "Z8NIMIF", "O9DMODN", "THYROIDAB" Radiology reportsas per the Radiologist Radiology: XR chest 1 view Result Date: 08/03/2024 [facility] 1960 [id number] Exam Date/Time: 08/03/2024 14:31 Procedure: XR CHEST 1 VIEW Ordering Provider: SOLANO RICHARD Reason For Exam: FOREIGN BODY; Confirm Needle Count AP CHEST X-RAY CLINICAL INDICATION: FOREIGN BODY;Confirm Needle Count TECHNIQUE: AP portable x-ray of the chest. COMPARISON: None FINDINGS: Intraoperative radiographs of the chest were obtained for incorrect instrument count. The patient has undergone open heart surgery with sternal wires and mediastinal drain. There is also a [place]-Brian catheter,ETT and NG tube. An atrial appendage clip is present. No radiopaque foreign body or instrument is id entified. The cardiomediastinal silhouette is enlarged. No evidence of a retained surgical instrument. Discussed with OR team at the time of exam completion. Report Dictated on Electronically Signed By: Adrian Alvarez MD Electronically Signed Date/Time: 08/03/2024 2:53 PM EDT History/Other: Past Medical History: Past Medical History: Diagnosis Date Alcohol abuse Aneurysm (HCC) Atrial fibrillation (HCC) Chronic bronchitis (HCC) CVA (cerebral vascular accident) (HCC) about 14 years ago per pt GERD (gastroesophageal reflux disease) Hypertension Nicotine abuse SONIA (obstructive sleep apnea) does not use cpap Paroxysmal supraventricular tachycardia (HCC) Shortness of breath Past Surgical History: Past Surgical History: Procedure Laterality Date CARDIAC CATHETERIZATION N/A 06/08/2024 Performed by Joe Timmons MD at [facility] Cardiac Cath/EP Lab CHOLECYSTECTOMY 2015 KIDNEY STONE SURGERY LUMBAR DISCECTOMY NEPHRECTOMY Right 1998 Allergy(ies): Allergies Allergen Reactions Penicillins Hives Other Reaction(s): GI upset, hives Hives or GI upset-patient unsure Aspirin Hives Other Reaction(s): GI Upset, GI upset, hives Family History: Family History Problem Relation Name Age of Onset Coronary artery disease Mother Heart attack Mother Coronary artery disease Father Heart attack Father Social History: Social History Tobacco Use Smoking status: Former Average packs/day: 1 pack/day for 18.0 years (18.0 ttl pk-yrs) Types: Cigarettes Start date: 2004 Smokeless tobacco: Never Vaping Use Vaping status: Never Used Substance Use Topics Alcohol use: Not Currently Comment: holidays/special occasions Drug use: Yes Frequency: 14.0 times per week Types: Marijuana Comment: smoking Portions of the information within this encounter were entered using an electronic dictation system. Best attempts were made to edit/proofread the information prior to note completion. Despite the review of information, some errors may remain. If there are questions related to the information contained within the note please contact the signing physician directly. I spent 35 minutes with the pt which involved coordination of care, medical evaluation, review of records, and/or counseling of the pt regarding his/her condition/disease state/prognosis on the date of this note. * GARY Farrell CNP - 08/04/2024 6:13 AM EDT Images from the original note were not included. Cardiothoracic Surgery/[facility] Progress Note PATIENT NAME: Erickson Riggs DATE: 08/04/24 HPI: 64 yo male with PMH of HTN, aortic aneurysm, afib, cardiomyopathy, SONIA, former tobacco use, marijuana use, and solitary kidney. Pt follows with Cardiology who ordered an annual CTA chest which was completed on 04/26/24 and showed ascending thoracic aorta measures up to 5.2 cm. Previous CTA chest completed on 04/03/23 showed dilated ascending aorta measuring 4.7 cm. He was referred to Dr. Solano as an OP. He admits to being sedentary most of the time, washing dishes wears him out. Surgery/Procedure: 08/03/24: Dr. Solano- Valve sparing aortic root replacement, ENRIQUE Interval History: 08/04/24, POD# 01: Afebrile, NSR on tele, on nipride for HTN, extubated and now on 4L NC. 1250mL LRand 75g albumin given overnight. Sitting up in bed, awake and alert. Pain present but medications help. Given albuterol and insulin for hyperkalemia overnight. Current IV Drips: Insulin- 6units/hr Nitroprusside- 0.45mcg/kg/min A-line: Arterial Line BP 1: 129/60 Invasive Hemodynamic Monitoring Blood Temperature: 36.7 C (98.1 F) PAP: 24/13 PAP (Mean): 17 mmHg CVP (mmHg): 267 mmHg CO (L/min): 6.37 L/min CI (L/min/m2): 2.39 L/min/m2 Objective: CT output cc/24hrs: 220 UO cc/24hrs: 865 Vitals: BP: (!) 97/48, MAP (mmHg): 72, BP Method: Arterial line Heart Rate: 76 Resp: 17 Temp: 36.4 C (97.5 F), Temp Source: Core BMI (Calculated): 45.97 BMP: Recent Labs 08/03/24 1519 08/04/24 0026 08/04/24 0149 08/04/24 0501 NA 139 136 135* 136 K 4.0 6.0* 5.8* 4.8 CL 109* 109* 108* 109* CO2 24 16* 20* 20* BUN 13 16 16 16 CREATININE 1.07 1.14 1.17 1.12 CALCIUM 8.9 8.2* 8.2* 8.2* MG 4.1* 3.0* -- -- CBC: Recent Labs 08/03/24 1519 08/03/24 1521 08/03/24 1629 08/03/24 2110 08/04/24 0026 WBC 16.2* -- -- -- 14.0* HGB 12.1* < > 12.9 11.4 11.2* HCT 35.9* -- -- -- 34.6* PLT 126* -- -- -- 133* MCV 88.0 -- -- -- 88.9 RDW 13.3 -- -- -- 13.6 < > = values in this interval not displayed. INR: Recent Labs 08/03/24 1519 08/04/24 0026 INR 1.1 1.0 Physical Exam Vitals reviewed. Constitutional: General: He is not in acute distress. Appearance: He is not ill-appearing or diaphoretic. Neck: Comments: Central line and [place]. Cardiovascular: Rate and Rhythm: Normal rate and regular rhythm. Pulses: Normal pulses. Heart sounds: No murmur heard. Pulmonary: Effort: Pulmonary effort is normal. Breath sounds: No wheezing, rhonchi or rales. Comments: Diminished bilaterally, shallow breathing. Abdominal: General: There is distension. Tenderness: There is no abdominal tenderness. Comments: Chest tubes. Genitourinary: Comments: Iyer. Musculoskeletal: General: Swelling present. Skin: General: Skin is warm and dry. Capillary Refill: Capillary refill takes 2 to 3 seconds. Findings: Bruising present. Comments: Surgical incisions well approximated. No redness, warmth or drainage noted. Neurological: General: No focal deficit present. Mental Status: He is alert and oriented to person, place, and time. Assessment: Aortic aneurysm s/p valve sparing aortic root replacement Afib Cardiomyopathy HTN SONIA S/p nephrectomy d/t tumor Former smoker Marijuana smoker Hx ischemic stroke Post operative Pulm Management: Normal Post-operative Course Post-operative Atrial Fibrillation: []Yes [x] No Acute blood loss anemia/consumptive thrombocytopenia Plan: Patient status: ICU Okay to remove [place]. Wean nitroprusside as able, goal SBP<120. Remove arterial line once off of nitroprusside. Start metoprolol 25mg BID (home dose). -Also takes amlodipine 10mg daily. Lasix 20mg IV x1 Out of bed this AM. Advance diet slowly. Bowel regimen. Continue current pain meds. Check BMP later this AM. -Otherwise daily labs and CXR. Wean O2 as able, goal SpO2>92%. GI prophy: IV protonix DVT prophy:TEDs, SCDs, and Heparin SubQ Pulmonary hygiene: IS and Acapella Consults: Endocrinology following. PT/OT: Will need assessed. TCC/Discharge Planning: TBD. Central Line: [x]Yes [] No Arterial Line: [x]Yes [] No Iyer: [x]Yes [] No Restraints: []Yes [x] No Patient discussed and plan of day developed from multidisciplinary rounds between Cardiothoracic Surgery (Cardiothoracic Surgeon, [facility]) and Critical Care Attending Critical Care time spent 20 minutes. The time involved in the performance of this care was exclusive of separately billable procedures, teaching time and treating other patients. The time was spent personally by myself for the following activities: examination of the patient, ordering and/or performing treatment, reviewing the laboratory and radiographic studies, and if applicable, ventilator management and blood gas interpretation. Cardiac Core Medications: Not indicated due to type of surgery EF: 74% (07/04/24) Blood Conservation: None noted in post-operative period Re Recording Mixer: Cosigned by Benjamin Pillai MD at 08/04/2024 3:51 PM EDT * Traci Garcia RRT - 08/03/2024 5:46 PM EDT [facility] Respiratory Care Department Progress Note Spontaneous Awakening Trial Wean Screen SpO2>/=88%: Yes (08/03/241707) FiO2</=50%: Yes (08/03/241707) PEEP </=8cmH2O: Yes (08/03/241707) HR <140 BPM: Yes (08/03/241707) RR </= 35 breaths/min: Yes (08/03/241707) MAP >/= 65mmHg: Yes (08/03/241707) Arterial pH >7.30: No (08/03/241707) Safety Screen Spontaneous Breathing Trial (SBT - RT) : Proceed with SBT - No exclusion criteria met(08/03/241707) Spontaneous Breathing Trial Weaning Start Time: 1708 (08/03/241737) Weaning Tidal Volume: 746 mL (08/03/241737) Weaning Respiratory Rate: 15 (08/03/241737) Spontaneous Minute Volume (MV): 12.9 (08/03/241737) Total RSBI: 20 (08/03/24 173) Weaning Tolerance: Excellent (08/03/241737) Weaning Stop Time: 1738 (08/03/241737) Weaning Duration (min): 30 (08/03/241737) Spontaneous Breathing Trial (SBT - RT) Outcome: SBT Passed (08/03/241737) Vent Settings Vent Mode: Spontaneous (08/03/241714) FiO2 (%): 40 % (08/03/241714) Vitals Heart Rate: 64 (08/03/241714) Resp: 17 (08/03/241714) SpO2: 98 % (08/03/241714) Suctioning/Secretions ABG results Recent Labs 08/03/24 1521 08/03/24 1629 PHART 7.252* 7.284* BGH2YAF 60.4* 47.3* PO2ART 70.4* 120.8* [id number] 26.0* 21.9 [id number] Ventilator Ventilator Does this patient meet criteria for termination of mechanical ventilation Yes- Notified physician below Name of physician notified via secure chat or in person : Russ (NA if patient did not meet criteria) Comments: Thank you for involving Respiratory in the care of this patient, documented in this [facility]05-20-2025 [facility] 08-16-2024 Hospital Discharge instructions* Discharge Instructions* Russel Nunez APRN - NICOLE - 08/16/2024 11:08 AM EDT Images from the original note were not included. [facility]: Cardiothoracic Surgery [address] [place] [address]. [address] [facility] #[phone] Notify us if the following occur - Increased tenderness, redness, or swelling of your incisions. - Any drainage from the chest incision (clear or pink drainage from the leg incision or chest tube site is common). - Angina symptoms like those you had before surgery - Sharp pain in chest, neck or shoulder that is worse when taking a deep breath - Persistent fever greater than 100 degrees F or 38 degrees C - Flu-like symptoms-chills, aches, fever, increased fatigue - Heart rate faster than 150 beats/minute with shortness of breath or new irregular heart rate. - Any unusual bleeding - Shortness of breath not relieved by rest - Weight gain of three pounds in one day or five pounds over one week Activity Instructions - Sternal Precautions for 6 weeks - Do not lift, push, or pull anything heavier than 10 pounds for 6 weeks (a gallon of milk weighs 8pounds). - Do not drive until you have been given permission by your surgeon/provider and until you are off narcotic/opioid pain medication - It is ok to sleep on your side if you prop pillows to support your back. Do not sleep on your stomach. - Walk at least 4 times a day, start with 5 minute intervals, increase minutes walked each day. Do not walk on a treadmill - Balance rest and activity during your recovery - Use the stairs, but go slowly, Use the handrail for balance but do not pull yourself up with yourarms. - Shower daily. Do not take your heart medication right before you shower. You could become lightheaded from your blood pressure and heart medication. Always have someone nearby to assist you. - Do not take a tub bath or use a hot tub until all incision are completely healed (no scab). - Put lindsay hose on in AM and remove at bedtime. Elevate your feet above level of heart when you are sitting. - Cough and deep breathe and use incentive spirometer every hour (10x/hour while awake for two weeks). Other Instructions - Weigh yourself daily at the same time (after you urinate but before breakfast) - Keep a record of your daily weight, and bring to your first post op office visit - Take all medications as prescribed. Bring all your medication bottles to any follow up office visit Incision Care - Wash your sternal incision with anti-bacterial soap and warm water. Pat dry, and leave open to air. Do not use any lotions, or powders, or ointments. * Discharge Instr - TAMERA* Melina Bae RN - 08/16/2024 10:12 AM EDT Images from the original note were not included. Continuity of Care Form Patient Name: Erickson Riggs : 1960 Admit date: 08/03/2024 Discharge date: 08/16/2024 Code Status Order: Full Code Advance Directives: N Admitting Physician: Mars Solano DO PCP: Mundo Plasencia Discharging Nurse: Melina Discharging Hospital Unit/Room#: T1-118/T1-118 A Discharging Unit Phone Number: [phone] Emergency Contact: Extended Emergency Contact Information Primary Emergency Contact: Maddie Thorpe Mobile Relation: Daughter Preferred language: Surinamese Tallow Refiner needed? No Past Surgical History: Past Surgical History: Procedure Laterality Date CARDIAC CATHETERIZATION N/A 06/08/2024 Performed by Joe Timmons MD at [facility] Cardiac Cath/EP Lab CHOLECYSTECTOMY 2015 KIDNEY STONE SURGERY LUMBAR DISCECTOMY NEPHRECTOMY Right 1998 Immunization History: There is no immunization history on file for this patient. Active Problems: Medical Problems Problem List * (Principal) Aneurysm of the ascending aorta, without rupture (HCC) History of motion sickness Difficult intravenous access Chronic obstructive pulmonary disease (HCC) SONIA (obstructive sleep apnea) HTN (hypertension) Paroxysmal atrial fibrillation (HCC) CVA (cerebral vascular accident) (HCC) Aneurysm of ascending aorta without rupture (HCC) Isolation/Infection: No active isolations No active infections Nurse Assessment: Last Vital Signs: BP 121/65 Pulse 119 Temp 36.7 C (98.1 F) (Oral) Resp 22 Ht 1.829 m (6') Wt (!) 154 kg (339 lb 11.7 oz) SpO2 91% PF 57 L/min BMI 46.08 kg/m Last documented pain score (0-10 scale): Last Weight: Wt Readings from Last 1 Encounters: 08/16/24 (!) 154 kg (339 lb 11.7 oz) Mental Status: TAMERA Patient Mental Status: oriented IV Access: TAMERA IV Access: None Nursing Mobility/ADLs: Walking Minimal assistance Transfer Minimal assistance Bathing Minimal assistance Dressing Minimal assistance Toileting Minimal assistance Feeding Minimal assistance Florist Designer Minimal assistance Med Delivery yes Wound Care Documentation and Therapy: Wound/Incision 08/03/24 Incision Sternum Mid (Active) Site Assessment Dry;Clean;Intact 08/16/24 0800 Hyun-Wound Assessment Clean;Dry;Intact 08/16/24 0800 Closure Open to air 08/15/24 0400 Drainage Description Unable to assess 08/15/24 0400 Odor None 08/16/24 0800 Drainage Amount None 08/16/24 0800 Treatments Cleansed;Site care 08/10/24 1600 Primary Dressing Liquid dressing adhesive 08/16/24 08 Dressing Status Clean, dry & intact 08/16/24 08 Number of days: 13 Elimination: Continence: Bowel: no Bladder: no Urinary Catheter: None Colostomy/Ileostomy/Ileal Conduit: None Date of Last BM: 08/16/2024 Intake/Output Summary (Last 24 hours) at 08/16/2024 1011 Last data filed at 08/16/2024 0800 Gross per 24 hour Intake -- Output 3725 ml Net -3725 ml I/O last 3 completed shifts: In: 433 (2.8 mL/kg) [I.V.:433 (2.8 mL/kg)] Out: 7087 (46 mL/kg) [Urine:7087 (1.3 mL/kg/hr)] Weight: 154.1 kg Safety Concerns: history of falls (last 30 days) and at risk for falls Impairments/Disabilities: none Nutrition Therapy: Current Nutrition Therapy: Oral diet: general Routes of Feeding: oral Liquids: thin liquids Daily Fluid Restriction: no Last Modified Barium Swallow with Video (Video Swallowing Test): not done Treatments at the Time of Hospital Discharge: Respiratory Treatments: None Oxygen Therapy: is on oxygen at 4 L/min per nasal cannula. Ventilator: No ventilator support Rehab Therapies: physical therapy and occupational therapy Weight Bearing Status/Restrictions: no restriction Other Medical Equipment (for information only, NOT a DME order): walker Other Treatments: none Patient's personal belongings (please select all that are sent with patient): none RN SIGNATURE: MANAGEMENT/SOCIAL WORK SECTION Inpatient Status Date: 08/03/24 Discharging to Facility/ Agency Name: [facility] Address: [address] [place], [place] [id number] Fax: Dialysis Facility (if applicable) Name: Address: Dialysis Schedule: Phone: Fax: Sandblast Operator/Hairspring Inspector signature: ICIAN SECTION Name: Erickson Riggs Prognosis: good Condition at Discharge: stable Rehab Potential (if transferring to Rehab): good Recommended Labs or Other Treatments After Discharge: BMP while on diuretic, CXR for acute SOB, wean O2 as able, PT/OT. The individual is being admitted to a nursing facility directly from an [facility] or a unit of a [facility] that is not operated by or licensed by [facility] under section 5119.14 or 5160-3-15.1 5 The individual requires the level of services provided by a nursing facility for the condition for which he or she was treated in the hospital and, Physician Certification: I certify the above information and transfer of Erickson Riggs is necessary for the continuing treatment of the diagnosis listed and that he requires LTAC for less than 30 days. Update Admission H&P: 64 yo male with PMH of HTN, aortic aneurysm, afib, cardiomyopathy, SONIA, former tobacco use, marijuana use, and solitary kidney. Pt follows with Cardiology who ordered an annual CTA chest which was completed on 04/26/24 and showed ascending thoracic aorta measures up to 5.2 cm. Previous CTA chest completed on 04/03/23 showed dilated ascending aorta measuring 4.7 cm. He was referred to Dr. Solano as an OP. He admits to being sedentary most of the time, washing dishes wears him out. Patient went to OR on 08/03/[address] Solano. Extubated post-op as expected. Did require HFNC and NIV for multiple days. Eventually weaned to 6L NC. Patient had intermittent confusion and ICU delirium. Did not sleepwell despite being treated with multiple pharmacological agents. Intermittent atrial fibrillation and sinus tachycardia. Started on amio gtt and then PO amio. Beta selene titrated up for better ratecontrol and started on Eliquis. Patient volume overloaded, treated with Bumex gtt and eventually transitioned to IV Bumex pushes, TID->BID. Urinary retention became an issue, Urology consulted and iyer replaced. Patient became agitated about iyer and demanded to have it removed. Discussed withUrology and decision made to remove. Patient states that urinary retention has been a chronic issuefor him. Urine culture +, started on ABX for UTI treatment. GI consulted for one episode of blood in stool. Patient declined workup for this, also stated that this is something that he periodically experiences. Decision made to discharge patient to [facility] for ongoing O2 weaning and PT/OT. PHYSICIAN SIGNATURE: Wound care/dressing changes: -Surgical incisions leave open to air, cleanse daily with mild soap & warm water, pat dry, no lotion or powders on incision.Call if incision becomes reddened, opens or drains. Respiratory Care: -Cough and Deep Breath; Use incentive spirometry 10 times every hour while awake for 2 weeks. -Oxygen therapy-prn- Maintain oxygen sat> 92% -Wean O2 as able -PAP at night and during naps Medications: -see Medication reconciliation (Med rec) Additional Orders: -Sternal precautions (no lifting, pushing, pulling >10 lbs) for 6 weeks-use heart pillow -Vitals every 8 hours while awake-call for fever and chills -Daily weights- call for weight gain -Wear TEDs during day and off at night. Lab/Imaging Work: -BMP while diuresing, CXR for acute SOB. Activity/Weight Bearing: -Up with assistance: up in chair for all meals, ambulate 3-4 times a day -Ok to shower with assist (if pt has IV line then only if completely covered) Therapies: -PT: Eval and treat OT: eval and treat Consults: -Pulmonology for O2 weaning. Follow up Appointments: Phone call from [facility] in 2 weeks to check on status, in person visit to follow once discharged home. [address] [place] [address] [facility] * Attachments The following attachments cannot be sent through Care Everywhere. * Diabetes and Diet (Surinamese) * Carb Counting for Adults With Diabetes (Surinamese) documented in this [facility]05-19-2025 NoteCare Management Progress Note Chart reviewed, cont 6L O2. Discharge plan [facility]. Length of Stay (Days): 12 [facility]OS[facility]19[facility] Consult note* Estrella L Erica, DO - 08/15/2024 8:33 AM EDTAssociated Order(s): IP CONSULT TO GI Images from the original note were not included. Department of Internal Medicine Gastroenterology Attending Consult Note Reason for Consult: The patient was seen in consultation at the request of Kyle Pandyae: Has a history of intermittent lower GIB, now requiring OAC with recurrent lower GIB in hospital. CHIEF COMPLAINT: planned ascending aortic aneurysm repair History Obtained From: patient/EMR HISTORY OF PRESENT ILLNESS: The patient is a 64 y.o. male with significant past medical history of HTN, aortic aneurysm s/p repair, afib, SONIA, right nephrectomy who presents for ascending aortic aneurysm repair w/ Dr. Solano 08/03. Patient follows with cardiology and annual CTA chest was completed on 04/26/24 which demonstrated ascending thoracic aorta measuring up to 5.2cm. He was referred to Dr. Solano who completed valve sparing aortic root and ascending aorta replacement, left atrial appendage exlusion on 08/03/2024. Patient is now POD 12. Per notes, on 08/13 patient had one episode of bloody stool, patient reports this is normal for himand occurs approx every 2 months. Hgb is 11.1 today. Appears baseline is near 14, however, has had recent cardiac surgery. He does endorse a hx of hemorrhoids, states he believes it may have been that. When asked further about his "bloody stool" he states it was a small amount that he noticed whilewiping. He is somewhat confused during exam, but is redirectable. Otherwise notable, Code was called on patient yesterday as he was confused and and no longer responding - code was cancelled as there was no loss of pulse, however patient had just fallen out of bed. Allergies: Penicillins and Aspirin Current Medications: Current Medications[1] Past Medical History: Active Ambulatory Problems Diagnosis Date Noted Aneurysm of ascending aorta without rupture (HCC) 06/01/2024 History of motion sickness 07/27/2024 Difficult intravenous access 07/27/2024 Chronic obstructive pulmonary disease (HCC) 07/27/2024 SONIA (obstructive sleep apnea) 07/27/2024 HTN (hypertension) 07/27/2024 Paroxysmal atrial fibrillation (HCC) 07/27/2024 CVA (cerebral vascular accident) (HCC) 07/27/2024 Resolved Ambulatory Problems Diagnosis Date Noted No Resolved Ambulatory Problems Past Medical History: Diagnosis Date Alcohol abuse Aneurysm (HCC) Atrial fibrillation (HCC) Chronic bronchitis (HCC) GERD (gastroesophageal reflux disease) Hypertension Nicotine abuse Paroxysmal supraventricular tachycardia (HCC) Shortness of breath Past Surgical History: Social History Socioeconomic History Marital status: Spouse name: Not on file Number of children: Not on file Years of education: Not on file Highest education level: Not on file Occupational History Not on file Tobacco Use Smoking status: Former Average packs/day: 1 pack/day for 18.0 years (18.0 ttl pk-yrs) Types: Cigarettes Start date: 2004 Smokeless tobacco: Never Vaping Use Vaping status: Never Used Substance and Sexual Activity Alcohol use: Not Currently Comment: holidays/special occasions Drug use: Yes Frequency: 14.0 times per week Types: Marijuana Comment: smoking Sexual activity: Not on file Other Topics Concern Not on file Social History Narrative Not on file Social Drivers of Health Financial Resource Strain: Not on file Food Insecurity: Not on file Transportation Needs: Not on file Physical Activity: Inactive (05/04/2024) Received from [facility] Exercise Vital Sign Days of Exercise per Week: 0 days Minutes of Exercise per Session: 0 min Stress: Not on file Social Connections: Not on file Intimate Partner Violence: Not At Risk (08/03/2024) Humiliation, Afraid, Rape, and Kick questionnaire Fear of Current or Ex-Partner: No Emotionally Abused: No Physically Abused: No Sexually Abused: No Housing Stability: Not on file Family History: Family History[2] No family history colon or stomach cancer. Social History: TOBACCO: reports that he has quit smoking. His smoking use included cigarettes. He started smoking about 20 years ago. He has a 18 pack-year smoking history. He has never used smokeless tobacco. ETOH: reports that he does not currently use alcohol. DRUGS: reports current drug use. Frequency: 14.00 times per week. Drug: Marijuana. 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 Normal appetite and weight. No PAYAN, visual disturbance, eye pain, jaundice, sore throat or mouth ulcers. No skin rash or itching. No CP, SOB, [place], cough or wheeze. No urinary frequency, urgency, hematuria, or dysuria. No myalgia, arthralgia, or joint swelling. No weakness, numbness, or confusion. GI per HPI. No polyuria, polydipsia, heat or cold intolerance. PHYSICAL EXAM: VS: BP 101/52 Pulse 71 Temp 36 C (96.8 F) (Temporal) Resp 23 Ht 6' (1.829 m) Wt (!) 337 lb 4.9 oz (153 kg) SpO2 95% PF 57 L/min BMI 45.75 kg/m Body mass index is 45.75 kg/m . Physical Exam Vitals and nursing note reviewed. HENT: Head: Normocephalic and atraumatic. Mouth/Throat: Mouth: Mucous membranes are moist. Eyes: Extraocular Movements: Extraocular movements intact. Pupils: Pupils are equal, round, and reactive to light. Abdominal: General: There is distension. Musculoskeletal: Comments: Anterior sternotomy scar Skin: General: Skin is warm. Neurological: Mental Status: He is alert. DATA: Recent blood work and relevant radiologic and endoscopic studies were reviewed and discussed with the patient. CBC: Recent Labs 08/13/24 0133 08/14/24 0041 08/14/24 1313 08/15/24 0035 WBC 13.3* 11.4* -- 13.0* RBC 3.90* 3.67* -- 3.80* HGB 11.2* 10.7* 11.9 11.1* HCT 35.4* 32.8* -- 34.0* MCV 90.8 89.4 -- 89.5 MCH 28.7 29.2 -- 29.2 MCHC 31.6 32.6 -- 32.6 RDW 14.7 14.3 -- 14.0 PLT 219 206 -- 196 MPV 9.6 9.8 -- 9.7 CMP: Recent Labs 08/14/24 0041 08/14/24 1201 08/15/24 0035 NA 141 137 139 K 3.4* 3.9 3.7 CL 94* 94* 97* CO2 34* 32* 32* BUN 35* 28* 27* CREATININE 1.26* 1.34* 1.28* GLUCOSE 96 102 116* CALCIUM 9.0 9.1 8.9 PT/INR: No results for input(s): "INR" in the last [address] head wo IV contrast Final Result Impression: Remote stroke suspected. Chart review supports stroke 14 years ago. No convincing acute process seen. CT cervical spine: Indication: Trauma and neck pain FINDINGS: Dose reduction was employed with automated exposure control. Unenhanced cervical spine performed. 3-D imaging created and reviewed on independent 3-D workstation for better detection of pathology evaluation of neural foramina. Limited by motion. Bone density:Normal. Acute lesions: No convincing acute process within limits of the study. Soft tissues: No convincing soft tissue swelling. Arthritis: Degenerative changes visible. Posterior osteophytes cause neural foraminal narrowing. Limited views of skull base unremarkable. Visualized portions of lung apices Show no major volume loss.. IMPRESSION: No convincing acute process within limits of the study. Comment: Please note this report has been produced using speech recognition software and may contain errors related to that system including errors in grammar, punctuation, and spelling as well as words and phrases that may be inappropriate. If there are any questions or concerns please feel free to contact the dictating provider for clarification Report Dictated on Electronically Signed By: Derian Tafoya MD Electronically Signed Date/Time: 08/14/2024 5:[address] cervical spine wo IV contrast Final Result Impression: Remote stroke suspected. Chart review supports stroke 14 years ago. No convincing acute process seen. CT cervical spine: Indication: Trauma and neck pain FINDINGS: Dose reduction was employed with automated exposure control. Unenhanced cervical spine performed. 3-D imaging created and reviewed on independent 3-D workstation for better detection of pathology evaluation of neural foramina. Limited by motion. Bone density:Normal. Acute lesions: No convincing acute process within limits of the study. Soft tissues: No convincing soft tissue swelling. Arthritis: Degenerative changes visible. Posterior osteophytes cause neural foraminal narrowing. Limited views of skull base unremarkable. Visualized portions of lung apices Show no major volume loss.. IMPRESSION: No convincing acute process within limits of the study. Comment: Please note this report has been produced using speech recognition software and may contain errors related to that system including errors in grammar, punctuation, and spelling as well as words and phrases that may be inappropriate. 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, left atrial appendage exlusion (Russ, 08/03/2024) H/O Diverticulosis H/O External Hemorrhoids - Hgb stable at 11; monitor H/H transfuse as necessary - Patient declines colonoscopy at this time; if he decides he would like one, can re-consult - should follow up outpatient w/ [facility] - GI to sign off at this time [1] Current Facility-Administered Medications: acetaminophen (Tylenol) tablet 1,000 mg, 1,000 mg, Oral, q8h, Russel Nunez APRN - NICOLE, 1,000 mg at 08/15/24 08 amiodarone (Pacerone) tablet 400 mg, 400 mg, Oral, BID, GARY Farrell CNP, 400 mg at 08/15/24 08 amLODIPine (Norvasc) tablet 5 mg, 5 mg, Oral, Daily, GARY Farrell CNP, 5 mg at 801 [Held by provider] apixaban (Eliquis) tablet 5 mg, 5 mg, Oral, BID, GARY Farrell PLUMBING MANAGER, 5mg at 08/12/242124 asenapine (Saphris) SL tablet 5 mg, 5 mg, SubLINGual, Nightly, Russel Nunez APRN - NICOLE, 5 mg at 08/14/242026 bumetanide (Bumex) injection 2 mg, 2 mg, IntraVENous, BID, Keesha Jessica, GARY - NICOLE, 2 mg at 08/15/24 0541 calcium gluconate 2000 mg in 100 mL IVPB premix, 2,000 mg, IntraVENous, PRN, JENA Farrell CNP, Stopped at 08/05/24 0117 dexmedeTOMIDine in NS (Precedex) 400 mcg in 100 mL (4 mcg/mL) infusion, 0.1-1.5 mcg/kg/hr, IntraVENous, Continuous, GARY Farrell CNP dextrose 5 % infusion, 100 mL/hr, IntraVENous, PRN, Prakash Doe MD dextrose 50 % solution 12.5 g, 12.5 g, IntraVENous, PRN, Prakash Doe MD doxazosin (Cardura) tablet 2 mg, 2 mg, Oral, Daily, GARY Farrell CNP, 2 mg at 08/15/24 0801 glucagon (human recombinant) injection 1 mg, 1 mg, IntraMUSCular, PRN, Prakash Doe MD glucose oral gel 15 g, 15 g, Oral, PRN, Prakash Doe MD guaiFENesin (Mucinex) 12 hr tablet 600 mg, 600 mg, Oral, BID, GARY Farrell CNP, 600 mg at 08/15/24 0801 heparin injection 5,000 Units, 5,000 Units, SubCUTAneous, BID, GARY Farrell CNP, 5,000 Units at 08/15/24 1020 insulin glargine (Lantus) pen 25 Units, 25 Units, SubCUTAneous, q AM, GARY Plasencia CNP, 25 Units at 08/15/24 0933 insulin lispro (HumaLOG) pen injection 0-6 Units, 0-6 Units, SubCUTAneous, TID WC, Juan Bowling APRN - PLUMBING MANAGER, 2 Units at 08/14/24 1705 ipratropium-albuterol (Duo-Neb) 0.5-2.5 mg/3 mL nebulizer solution 3 mL, 3 mL, Nebulization, TID PRN, Russel Nunez APRN - PLUMBING MANAGER, 3 mL at 08/08/24 0611 Lidocaine 4 % patch 1 patch, 1 patch, Topical, Daily, Russel Nunez APRN - PLUMBING MANAGER, 1 patch at 08/14/24 0904 Lidocaine 4 % patch 1 patch, 1 patch, TransDERmal, Daily, Keesha Jessica APRN - PLUMBING MANAGER, 1 patchat 08/14/24 0904 magnesium hydroxide (Milk of Magnesia) 400 MG/5ML suspension 30 mL, 30 mL, Oral, Daily PRN, Russel Urrutia APRN - PLUMBING MANAGER, 30 mL at 08/06/24 0522 magnesium sulfate IVPB premix 2,000 mg, 2,000 mg, IntraVENous, PRN OR magnesium sulfate IVPB 4,000 mg, 4,000 mg, IntraVENous, PRN, GARY Farrell CNP melatonin tablet 5 mg, 5 mg, Oral, Nightly PRN, Prakash Doe MD, 5 mg at 08/08/24 2048 metoprolol succinate XL (Toprol-XL) 24 hr tablet 100 mg, 100 mg, Oral, Daily, Keesha Jessica APRN - PLUMBING MANAGER, 100 mg at 08/15/24 0806 naloxone (Narcan) injection 0.4 mg, 0.4 mg, IntraVENous, q5 min PRN, Mars Solano DO ondansetron ODT (Zofran-ODT) disintegrating tablet 4 mg, 4 mg, Oral, q8h PRN OR ondansetron (Zofran) injection 4 mg, 4 mg, IntraVENous, q6h PRN, GARY Farrell CNP oxyCODONE (Roxicodone) immediate release tablet 5 mg, 5 mg, Oral, q4h PRN OR oxyCODONE (Roxicodone) immediate release tablet 10 mg, 10 mg, Oral, q4h PRN, Russel Nunez APRN - PLUMBING MANAGER, 10 mg at 08/11/24 0136 pantoprazole (ProtoNix) EC tablet 40 mg, 40 mg, Oral, qAM AC, Russel Nunez APRN - PLUMBING MANAGER, 40 mg at 08/15/24 0704 polyethylene glycol (PEG) 3350 (Miralax) packet 17 g, 17 g, Oral, Daily, Russel Nunez APRN - PLUMBING MANAGER, 17 g at 08/15/24 0801 potassium chloride IVPB 20 mEq, 20 mEq, IntraVENous, TID PRN OR Potassium Chloride in NaCl IVPB20 mEq, 20 mEq, IntraVENous, q8h PRN OR potassium chloride 40 mEq in NS 500 mL IVPB (premix), 40 mEq, IntraVENous, TID PRN, Russel Nunez APRN - PLUMBING MANAGER potassium chloride CR (Klor-Con M10) ER tablet 20 mEq, 20 mEq, Oral, PRN, Russel Nunez APRN - PLUMBING MANAGER, 20 mEq at 08/14/24 0339 potassium chloride CR (Klor-Con M10) ER tablet 40 mEq, 40 mEq, Oral, Daily, Russel Nunez APRN - PLUMBING MANAGER, 40 mEq at 08/15/24 0800 senna-docusate sodium (Senokot-S) 8.6-50 MG tablet 2 tablet, 2 tablet, Oral, Nightly, Russel Nunez APRN - PLUMBING MANAGER, 2 tablet at 08/14/242023 [2] Family History Problem Relation Name Age of Onset Coronary artery disease Mother Heart attack Mother Coronary artery disease Father Heart attack Father Cosigned by Claudine Acuna MD at 08/15/2024 2:58 PM EDT Associated attestation - Claudine Acuna MD - 08/15/2024 2:58 PM EDT Attending Supervising Physician s Attestation Statement I have personally performed and participated in all the above services (including HPI and PE). I have reviewed the case with Advance Practice Provider (ENMA)/ resident / student, and agreed with the ENMA's / resident / student assessment and plan as above. I have following additions or modifications: I did substantive portion of medical decision making. Consulted for single episode of hematochezia. Need for anti coagulation. Needs a colonoscopy, patient does not want a colonoscopy and declines one. Risks of benefits of anti coagulation need to be weighed and discussed with patient. Patient wants his iyer's out currently and is saying he may be kevin if not removed. He also has shortness of breath. Does not want colonoscopy saying he has hemorrhoids. Recommend rectal exam once patient is calm down. GI to follow [facility] * Mary Kate Caballero RN - 08/04/2024 2:32 PM EDTAssociated Order(s): IP CONSULT TO CLINICAL QUALITY MANAGER In Patient DIABETES EDUCATION: Patient instructed in the following; Most recent HgbA1C lab result 12.7 its interpretation and in the need for optimal glycemic management. Hyperglycemia symptoms DM pathophysiology and natural progression of disease with the loss of beta cells. Nutrition; with attention to Carb/protein/healthy fat balance, emphasizing a regular schedule for meal times. Hypoglycemia sxs, treatment and prevention; The need for prompt recognition of and treatment for. Agrees to have oral glucose readily available at all times. The timing, actions and side effects of ordered oral agent(s) and non insulin injectables Availability of CGMs The importance of communicate CGM reports and/or glucose log to provider at follow up, The steps in using a glucometer: Obtaining BG sample, correctly, the purpose, proper disposal of sharps, frequency of testing, documentation, target blood sugars and when to call the doctor The rationale for basal, prandial their timing, actions and potential side effects. Timing of meals and prandial doses, emphasizing a regular schedule for meal times. Using demo flex pen patient and daughter shown how to use and inject insulin. Instructions given to patient on use and injection of insulin. Storage of insulin, Implications for driving now that insulin therapy initiated Effects of steroid use on BG and in the need for the white spooler or ordering physician to decrease insulin dosages as steroids are weaned. States understanding of importance of communicating BG results to physician, at regular intervals Pt verbalized good understanding of information given. Denies having any concerns or questions Encouraged to follow up as outpatient Handouts reviewed and given: Survival Skills: Controlling Blood Sugar Book Blood Sugar Log * Jenny Caballero, GINETTE - 08/04/2024 11:12 AM EDTAssociated Order(s): IP CONSULT TO DIETITIAN; IP CONSULT TO DIETITIAN Nutrition Assessment Type and Reason for Visit: Initial, Consult (s/p open heart surgery) Nutrition Recommendations/Plan: Continue 5 carb choices (75 g/meal) diet as ordered Per MNT Protocol, will order Chucky BID to promote post-op healing. Encouraged protein intake Diabetes diet information is added to discharge instruction. Will monitor diet education needs- noted A1C of 7.4% on 07/27/24, ?hx of DM, per endo note "may need DM education." RD will monitor overall nutrition status and will follow weekly Malnutrition Assessment: Malnutrition Status: At risk for malnutrition (Comment) (s/p open heart surgery) Nutrition Assessment: Per chart, pt with PMH of HTN, aortic aneurysm, afib, cardiomyopathy, SONIA, former tobacco use, marijuana use, and solitary kidney. Pt follows with Cardiology who ordered an annual CTA chest which wascompleted on 04/26/24 and showed ascending thoracic aorta measures up to 5.2 cm. Previous CTA chest c ompleted on 04/03/23 showed dilated ascending aorta measuring 4.7 cm. He was referred to Dr. Solano as an OP. He admits to being sedentary most of the time, washing dishes wears him out. Pt admitted and underwent valve sparing aortic root replacement, ENRIQUE with Dr. Solano on 08/03/24. POD #1. Extubated with diet ordered. Pt reports he has just ordered his first meal, has not eaten yet, reports he was eating well prior to admission, no unplanned weight loss, follows a general diet, has had some nausea recently which is resolved. He is not interested in Ensure, but is agreeable to Chucky. RD encouraged protein intake Estimated Daily Nutrient Needs: Energy Requirements Based On: Kcal/kg Weight Used for Energy Requirements: Sheldon Weight for Energy Calculation (kg): 80.7 kg (25-28 kcal/kg) Total Energy Requirements (kcals/day): 8727-9856 Weight Used for Protein Requirements: Sheldon Weight in Kg Used for Protein Requirements: 80.7 kg (1.2-1.5 g/kg) Estimated Total Protein (g/day): 97-121 Estimated Daily Total Fluid (ml/day): per MD Nutrition Related Findings: Nutrition History: Independent of feeding. Teeth: Missing teeth GI symptoms: None at this time. Ladarius Scale Score: 17. Wound Type: Surgical Incision Net IO Since Admission: 1,479.6 mL [08/04/24 1112] Edema: RUE Edema: Trace, LUE Edema: None, RLE Edema: Non-pitting, LLE Edema: Non-pitting Bowel Sounds (All Quadrants): Hypoactive Abdomen Inspection: Distended, Rounded, Surgical scar O2 Delivery Method: Nasal cannula, FiO2 (%): 40 %, O2 Flow Rate (L/min): 3 L/min Labs and meds reviewed: acetaminophen, 1,000 mg, Oral, q8h chlorhexidine, , Topical, Daily chlorhexidine, 15 mL, Mouth/Throat, BID Lidocaine, 1 patch, Topical, Daily metoprolol tartrate, 25 mg, Oral, BID mupirocin, , Nasal, BID pantoprazole, 40 mg, IntraVENous, Daily polyethylene glycol (PEG) 3350, 17 g, Oral, Daily senna-docusate sodium, 2 tablet, Oral, Nightly sodium chloride 0.9%, 5-40 mL, IntraCATHeter, q8h vancomycin, 15 mg/kg, IntraVENous, q12h insulin regular, 1-50 Units/hr, Last Rate: 5.5 Units/hr (08/04/24 1108) lactated ringers, 250 mL nitroprusside, 0.1-3 mcg/kg/min, Last Rate: 0.7 mcg/kg/min (08/04/24 0941) sodium chloride, 20 mL/hr, Last Rate: 20 mL/hr (08/04/24 0817) BMP: Recent Labs 08/03/24 1519 08/04/24 0026 08/04/24 0149 08/04/24 0501 NA 139 136 135* 136 K 4.0 6.0* 5.8* 4.8 CL 109* 109* 108* 109* CO2 24 16* 20* 20* BUN 13 16 16 16 CREATININE 1.07 1.14 1.17 1.12 GLUCOSE 83 166* 172* 200* CALCIUM 8.9 8.2* 8.2* 8.2* MG 4.1* 3.0* -- -- Recent Labs 08/04/24 0608 08/04/24 0709 08/04/24 0810 08/04/24 0900 08/04/24 1005 08/04/24 1058 POCGLU 203* 185* 174* 199* 179* 145* Lab Results Component Value Date HGBA1C 7.4 (H) 07/27/2024 Lab Results Component Value Date EFBP 74 07/04/2024 Current Nutrition Therapies: Adult diet Regular; 5 carb choices (75 gm/meal) Current Oral Intake Average Meal Intake: Unable to assess Average Supplements Intake: None Ordered Anthropometric Measures: Height: 182.9 cm (6') Current Body Weight: 154 kg (339 lb) (08/03) Admission Body Weight: 154 kg (339 lb) (08/03) Usual Body Weight: (337# on 06/01/24) Sheldon Body Weight (lbs) (Calculated): 178 lbs Sheldon Body Weight (Kg) (Calculated): 81 kg % Sheldon Body Weight (Calculated): 190.4 % BMI (kg/m2) (Calculated): 46 BMI Categories: Obese Class 3 (BMI 40.0 or greater) Wt Readings from Last 10 Encounters: 08/03/24 (!) 154 kg (339 lb) 07/27/24 (!) 154 kg (339 lb 4.8 oz) 07/21/24 (!) 152 kg (335 lb) 07/04/24 (!) 153 kg (337 lb) 06/01/24 (!) 153 kg (337 lb 9.6 oz) 05/18/24 (!) 150 kg (330 lb) Nutrition Diagnosis: Increased nutrient needs related to increase demand for energy/nutrients as evidenced by (s/p open heart surgery) Nutrition Interventions: Food and/or Nutrient Delivery: Continue Current Diet, Start Oral Nutrition Supplement Nutrition Education/Counseling: (Monitor diet education needs -? prior dx of DM) Coordination of Nutrition Care: Continue to monitor while inpatient Goals: Goals: PO intake 75% or greater, by next RD assessment Nutrition Monitoring and Evaluation: Behavioral-Environmental Outcomes: Knowledge or Skill Food/Nutrient Intake Outcomes: Food and Nutrient Intake, Supplement Intake Physical Signs/Symptoms Outcomes: Biochemical Data, GI Status, Fluid Status or Edema, Skin, Weight Discharge Planning: Too soon to determine Jenny Caballero RD, LD Contact: *[phone] or via [facility] chat * Makenna Gregory - 08/04/2024 8:15 AM EDTAssociated Order(s): IP CONSULT TO CARDIAC REHAB Received Cardiopulmonary Rehab Phase II Referral and reviewed chart. Patient does not have a qualifying diagnosis for outpatient cardiopulmonary rehab at this time. * Keesha Jessica APRN - PLUMBING MANAGER - 08/03/2024 3:54 PM EDT Images from the original note were not included. [facility]: Critical Care Consultation Note Date: 08/03/24 PATIENT NAME: Erickson Riggs : 1960 (64 y.o.) Reason for Consult: Critical Care & Vent Management HPI: 64 yo male with PMH of HTN, aortic aneurysm, afib, cardiomyopathy, SONIA, former tobacco use, marijuana use, and solitary kidney. Pt follows with Cardiology who ordered an annual CTA chest which was completed on 04/26/24 and showed ascending thoracic aorta measures up to 5.2 cm. Previous CTA chest completed on 04/03/23 showed dilated ascending aorta measuring 4.7 cm. He was referred to Dr. Solano as an OP. He admits to being sedentary most of the time, washing dishes wears him out. Surgery: 08/03/24: Dr. Solano- valve sparing aortic root replacement, ENRIQUE Interval History: 08/03/24: POD #0: Patient arrived to the unit, intubated and sedated. Surgical hand off completed below. Surgery Hand Off: Arrival Time in CTVICU: 1500 Complications/Pertinent Events: Last Paralytic: 12:15 pm Medications given in route: Gtts OR report Propofol: Insulin: 5units/hr Amicar: 29 Current gtts upon arrival Precedex: 0.5 mcg/kg/hr Insulin: 5 units/hr Amicar: 29 Devices: Epicardial wires: yes [x] no [] IABP: yes [] no [x] LVAD: yes [] no [x] Speed: Equipment: Back up controller yes [] no [x] Blood Transfusions Intra Op: yes [] no [x] CellSaver: yes Vital Signs including Cardiac Numbers (if indicated) at Conclusion of Hand-off OR CTVICU CO 5.1 6.97 CI 1.9 2.61 CVP 12 10 SVR 1093 562 PAP Additional Interventions/Misc during Handoff none Review of Systems Unable to perform ROS: Intubated Allergies: Penicillins and Aspirin Past Medical History: has a past medical history of Alcohol abuse, Aneurysm (HCC), Atrial fibrillation (HCC), Chronic bronchitis (HCC), CVA (cerebral vascular accident) (HCC), GERD (gastroesophageal reflux disease), Hypertension, Nicotine abuse, SONIA (obstructive sleep apnea), Paroxysmal supraventricular tachycardia (HCC), and Shortness of breath. Past Surgical History: has a past surgical history that includes Nephrectomy (Right, 1998); Cholecystectomy (2014); Cardiac catheterization (N/A, 06/08/2024); Kidney stone surgery; and Lumbar discectomy. Social History: reports that he has quit smoking. His smoking use included cigarettes. He started smoking about 20 years ago. He has a 18 pack-year smoking history. He has never used smokeless tobacco. He reports that he does not currently use alcohol. He reports current drug use. Frequency: 14.00 times per week. Drug: Marijuana. Family History: family history includes Coronary artery disease in his father and mother; Heart attack in his father and mother. Medications: Prior to Admission medications Medication Sig Start Date End Date Taking? Authorizing Provider amLODIPine (Norvasc) 10 MG tablet Take 10 mg by mouth daily. 12/24/22 Yes Historical Provider, doxazosin (Cardura) 2 MG tablet Take 1 tablet by mouth Nightly. 04/08/24 Yes Historical Provider, metoprolol tartrate (Lopressor) 25 MG tablet Take 25 mg by mouth 2 times daily. Yes Historical Provider, Objective: BP (!) 159/82 Pulse 70 Temp (!) 35.9 C (96.6 F) (Tympanic) Resp 21 Ht 6' (1.829 m) Wt (!)339 lb (154 kg) SpO2 100% PF 57 L/min BMI 45.98 kg/m Intake/Output Summary (Last 24 hours) at 08/03/2024 1554 Last data filed at 08/03/2024 1517 Gross per 24 hour Intake 1709.6 ml Output 605 ml Net 1104.6 ml Physical Exam Constitutional: Appearance: He is morbidly obese. Interventions: He is sedated and intubated. HENT: Mouth/Throat: Comments: ETT in place Cardiovascular: Rate and Rhythm: Normal rate and regular rhythm. Heart sounds: Normal heart sounds, S1 normal and S2 normal. Comments: Trace peripheral edema Pulmonary: Effort: He is intubated. Breath sounds: Decreased breath sounds present. Abdominal: General: Bowel sounds are absent. Musculoskeletal: Right lower leg: Edema present. Left lower leg: Edema present. Skin: Findings: Bruising and ecchymosis present. Comments: Surgical dressing dry and intact Diagnostics: Reviewed in EMR Labs: Reviewed in EMR BMP:No results for input(s): "NA", "K", "CL", "CO2", "BUN", "CREATININE", "CALCIUM", "MG", "PHOS" in the last 72 hours. CBC: Recent Labs 08/03/24 1519 08/03/24 1521 WBC 16.2* -- HGB 12.1* 12.7 HCT 35.9* -- PLT 126* -- MCV 88.0 -- RDW 13.3 -- INR: Recent Labs 08/03/24 1519 INR 1.1 Assessment: Aortic aneurysm s/p valve sparing aortic root replacement Afib Cardiomyopathy HTN SONIA S/p nephrectomy d/t tumor Former smoker Marijuana smoker Hx ischemic stroke Post operative Pulm Management: Normal Post-operative Course Post-operative Atrial Fibrillation: []Yes [x] No Acute blood loss anemia/consumptive thrombocytopenia Plan: - Sugamadex - Precedex for sedation - Hemodynamic goals: CI >2.0, SBP 90-130 mmHg, MAP 60-75 - PRN Hypertension Nipride -PRN Hypotension CI >2.0 euvolemic with low SVR- Levophed gtt CI <2.0 euvolemic - Epinephrine gtt - Temp pacing wires/mode: VVI @ 70 - Chest tubes: no air leak or fluctuation noted, suction - Cefazolin - surgical prophy for 5 doses total - Wean to Extubation: Arrival Time in unit: 15:00 - Vent: ACVC+, TV 6ml/kg/min, rate 12, fio2 100% PEEP 8 VAP protocol: HOB >30 degrees; peridex BID - Insulin gtt; per endo/protocol - GI prophy: Protonix IV daily Critical Care time spent 29 minutes. The time involved in the performance of this care was exclusive of separately billable procedures, teaching time and treating other patients. The time was spent personally by myself for the following activities: examination of the patient, ordering and/or performing treatment, reviewing the laboratory and radiographic studies, and if applicable, ventilator management and blood gas interpretation. Patient treatment plan and plan of care discuss with Dr. Benjamin Pillai Cosigned by Benjamin Pillai MD at 08/03/2024 7:32 PM EDT Associated attestation - Benjamin Pillai MD - 08/03/2024 7:32 PM EDT I have personally performed a [id number] diagnostic evaluation on this patient on date of vyowzfj61/07/25. History, labs, imaging studies, and electronic medical record have been reviewed by me. This note documented by the []lead housekeeper [x]ENMA reflects my history, exam, and medical decision making. I have reviewed and agree with the care plan. Changes were made in the orders as necessary. ROS documentation was reviewed and negative unless otherwise stated in HPI. Assessment: Asc Ao aneurysm Ao root replace Post-op pulm manage, expected course H/o afib, CMP, SONIA/Obesity, chronic bronch, stroke, parox SVT, s/p nephrect (tumor) Plan: Mild hypercap, vent adjusted Plan to extubate to BIPAP Currently no vasoactives Otw per ENMA note Critical care time spent reviewing labs/films, examining patient, collaborating with other physicians but excluding procedures for life threatening organ failure is 34 minutes. * Korin Kanika Nguyen, COMMERCIAL PEST CONTROL REPRESENTATIVE - PLUMBING MANAGER - 08/03/2024 3:07 PM EDTAssociated Order(s): IP CONSULT TO ENDOCRINOLOGY Department of Internal Medicine Division of Endocrinology, Diabetes, & Metabolism Endocrinology Note Patient Name: Erickson Riggs : 1960 AGE: 64 y.o. 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 PLAN: -Continue on insulin gtt per protocol -Noted received 4mg IV decadron in OR with anesthesia team -may need DM education ICU goal <180 GMF goal <150 POCT BG ACHS-q1 on gtt Hypoglycemia management per protocol Carb controlled diet once tolerates ANTICIPATED ENDOCRINE HOME GOING RECOMMENDATIONS: Optimized for Discharge from Endocrine standpoint: No Home Going Endocrine Rx Recommendations-- Tbd- Could benefit from sglt2 vs glp1 Meter vs cgm Outpt Follow Up-- PCP SUBJECTIVE/HPI: CHIEF COMPLAINT: No chief complaint on file. S/p aortic root repair A1c elevated, did not see any hx of dm2 or diabetes meds in chart review Bgl below Stable on insulin gtt 4/hr Received steroids in OR Pressors as needed VSS NPO Intubated/ sedated Will clarify hx once he is extubated - A1c is 7.4% Spoke to team Type of DM: 2 Onset of DM: not clear Home DM Medication Regimen: none DM control (last A1c/glucose data): Lab Results Component Value Date HGBA1C 7.4 (H) 07/27/2024 No results found for: "POCGLU" Review of Systems ROS negative except for those mentioned in HPI. OBJECTIVE: Vitals: 08/03/24 0535 08/03/24 0937 BP: (!) 159/82 Pulse: 63 Resp: 18 Temp: (!) 35.9 C (96.6 F) TempSrc: Tympanic SpO2: 97% Weight: (!) 339 lb (154 kg) Height: 6' (1.829 m) Physical Exam Vitals and nursing note reviewed. Constitutional: General: He is sleeping. He is not in acute distress. Appearance: He is morbidly obese. He is ill-appearing. He is not toxic-appearing. Interventions: He is sedated and intubated. HENT: Head: Normocephalic. Nose: Nose normal. Cardiovascular: Rate and Rhythm: Normal rate. Pulmonary: Effort: Pulmonary effort is normal. He is intubated. Abdominal: Tenderness: There is no guarding. Musculoskeletal: Cervical back: Normal range of motion. Skin: General: Skin is warm and dry. Coloration: Skin is pale. Findings: Bruising present. Comments: Intact incision 24 hour intake/output: Intake/Output Summary (Last 24 hours) at 08/03/2024 1507 Last data filed at 08/03/2024 1437 Gross per 24 hour Intake 1709.6 ml Output 445 ml Net 1264.6 ml Diet: NPO diet Medications (as per EMR): HomeMeds: Current Outpatient Medications Medication Instructions amLODIPine (NORVASC) 10 mg, Daily doxazosin (Cardura) 2 MG tablet 1 tablet, Nightly metoprolol tartrate (LOPRESSOR) 25 mg, 2 times daily Scheduled Meds:acetaminophen, 1,000 mg, Oral, q8h [START ON 08/04/2024] chlorhexidine, , Topical, Daily chlorhexidine, 15 mL, Mouth/Throat, BID Lidocaine, 1 patch, Topical, Daily mupirocin, , Nasal, BID [START ON 08/04/2024] pantoprazole, 40 mg, IntraVENous, Daily polyethylene glycol (PEG) 3350, 17 g, Oral, Daily senna-docusate sodium, 2 tablet, Oral, Nightly sodium chloride 0.9%, 5-40 mL, IntraCATHeter, q8h sugammadex, 4 mg/kg, IntraVENous, Once vancomycin, 15 mg/kg, IntraVENous, q12h Continuous Infusions:EPINEPHrine, 0.01-0.3 mcg/kg/min insulin regular, 1-50 Units/hr lactated ringers, 250 mL nitroprusside, 0.1-3 mcg/kg/min norepinephrine, 0.01-0.2 mcg/kg/min propofol, 5-50 mcg/kg/min sodium chloride, 20 mL/hr PRN Meds:PRN medications: albumin human, calcium gluconate, dextrose, dextrose, EPINEPHrine, glucagon (rDNA), glucose, ipratropium-albuterol, lactated ringers, magnesium hydroxide, magnesium sulfate OR magnesium sulfate, morphine sulfate OR morphine sulfate, nitroprusside, norepinephrine, ondansetron ODT OR ondansetron, oxyCODONE OR oxyCODONE, potassium chloride OR potassium chloride OR potassium chloride, [START ON 08/04/2024] potassium chloride CR, sodium chloride 0.9% Diagnostic Workup: I reviewed pertinent Laboratory results, Radiographic results, and Other Clinical Notes at the timeof today's encounter. Labs: No components found for: "LABA1C" No components found for: "EAG" No results found for: "NA", "K", "CL", "CO2", "BUN", "CREATININE", "GLUCOSE", CALCIUM No results found for: "CHLPL", "CHOL" No results found for: "TRIG" No results found for: "HDL" No results found for: "LDLCALC" No results found for: "VLDL" No results found for: "CHOLHDLRATIO" No results found for: "[id number]" No results found for: "TSH", "R8WHZXS", "S9MVDEV", "THYROIDAB" Radiology reportsas per the Radiologist Radiology: XR chest 1 view Result Date: 08/03/2024 [facility] 1960 [id number] Exam Date/Time: 08/03/2024 14:31 Procedure: XR CHEST 1 VIEW Ordering Provider: SOLANO RICHARD Reason For Exam: FOREIGN BODY; Confirm Needle Count AP CHEST X-RAY CLINICAL INDICATION: FOREIGN BODY;Confirm Needle Count TECHNIQUE: AP portable x-ray of the chest. COMPARISON: None FINDINGS: Intraoperative radiographs of the chest were obtained for incorrect instrument count. The patient has undergone open heart surgery with sternal wires and mediastinal drain. There is also a [place]-Brian catheter,ETT and NG tube. An atrial appendage clip is present. No radiopaque foreign body or instrument is id entified. The cardiomediastinal silhouette is enlarged. No evidence of a retained surgical instrument. Discussed with OR team at the time of exam completion. Report Dictated on Electronically Signed By: Adrian Alvarez MD Electronically Signed Date/Time: 08/03/2024 2:53 PM EDT History/Other: Past Medical History: Past Medical History: Diagnosis Date Alcohol abuse Aneurysm (HCC) Atrial fibrillation (HCC) Chronic bronchitis (HCC) CVA (cerebral vascular accident) (HCC) about 14 years ago per pt GERD (gastroesophageal reflux disease) Hypertension Nicotine abuse SONIA (obstructive sleep apnea) does not use cpap Paroxysmal supraventricular tachycardia (HCC) Shortness of breath Past Surgical History: Past Surgical History: Procedure Laterality Date CARDIAC CATHETERIZATION N/A 06/08/2024 Performed by Joe Timmons MD at [facility] Cardiac Cath/EP Lab CHOLECYSTECTOMY 2015 KIDNEY STONE SURGERY LUMBAR DISCECTOMY NEPHRECTOMY Right 1998 Allergy(ies): Allergies Allergen Reactions Penicillins Hives Other Reaction(s): GI upset, hives Hives or GI upset-patient unsure Aspirin Hives Other Reaction(s): GI Upset, GI upset, hives Family History: Family History Problem Relation Name Age of Onset Coronary artery disease Mother Heart attack Mother Coronary artery disease Father Heart attack Father Social History: Social History Tobacco Use Smoking status: Former Average packs/day: 1 pack/day for 18.0 years (18.0 ttl pk-yrs) Types: Cigarettes Start date: 2004 Smokeless tobacco: Never Vaping Use Vaping status: Never Used Substance Use Topics Alcohol use: Not Currently Comment: holidays/special occasions Drug use: Yes Frequency: 14.0 times per week Types: Marijuana Comment: smoking Portions of the information within this encounter were entered using an electronic dictation system. Best attempts were made to edit/proofread the information prior to note completion. Despite the review of information, some errors may remain. If there are questions related to the information contained within the note please contact the signing physician directly. I spent 55 minutes with the pt which involved coordination of care, medical evaluation, review of records, and/or counseling of the pt regarding his/her condition/disease state/prognosis on the date of this note. Cosigned by Lewis Baer MD at 08/03/2024 6:34 PM EDT Associated attestation - Lewis Baer MD - 08/03/2024 6:34 PM EDT I reviewed the chart and discussed case with Nurse Practitioner. I agree with the management and plan. documented in this [facility]05-16-[address]25 [facility] 08-12-2024 Procedure note* GARY Pandya CNP - 08/12/2024 2:31 PM EDTAssociated Order(s): Thoracentesis Post-Procedure Diagnose(s): Pleural effusion Thoracentesis Date/Time: 08/12/2024 2:31 PM Performed by: GARY Pandya CNP Authorized by: GARY Pandya CNP Consent: The indications, risks, benefits, alternatives to the procedure were explained to the patient/surrogate decision maker and their questions answered. Consent was obtained to proceed with the procedure. Timeout: Completed immediately prior to the start of the procedure which included verification of the correct patient, correct site and agreement on the procedure to be done. Indications: Indications: pleural effusion Anesthetic: Local anesthetic used: lidocaine without epinephrine Preparation: Patient was prepped and draped in usual sterile fashion Skin prepped: skin prepped with chlorhexidine Procedure details: Patient position: sitting Location: Left Ultrasound guidance: yes Post-procedure details: Post-procedure: occlusive dressing applied Description/Findings: 480 mL of serosanguinous fluid drained from pleural space. Follow-up chest x-ray: ordered Estimated blood loss: < 5 mL Complications: No apparent complications Assistants & Supervision: I personally performed the procedure documented as signed by this procedure note Registered Travel Nurse: Dr. Rodriguez Cosigned by Bienvenido Rodriguez MD at 08/12/2024 5:36 PM EDT Associated attestation - Bienvenido Rodriguez MD - 08/12/2024 5:36 PM EDT I was present and supervised procedure documented in this [facility]05-15-2025 NoteReferral placed to [facility] - [facility] via [facility] per TCC request. Await review and response regarding ability to accept. TCC notified. [facility]05-14-2025 NoteCare Management Progress Note Continues on a precedex gtt and IV lasix. May nee LTAC vs SNF.. Length of Stay (Days): 7 [facility] Nurse Note* Maria G Potter RN - 08/09/2024 6:47 PM EDT RN at bedside with pt. Pt having more and more confusion. Turning over in bed and not keeping HHFNC02 on. Pt difficult to direct. Pt nearly crawling out of bed and RN needing to put legs back in bedfor safety. Other Staff Rns came to bedside and I asked for ICU to be called and pt will most likely need intubated. RN called or Respiratory therapy to come to bedside. Dr. Solano came to bedside and asked to trouble shoot needs of pt and avoid intubation. Rns were given order for ativan 2mg IV. Stat chest portable xray was ordered and completed. Pt on HHFNC and a nonrebreather for 02 needs. ICUfellow investigated with US if there was pneumothorax or other evidence of why pt was having oxygenation issues. Pt placed on NIV with 2 Rns at bedside to help keep him safe. Dr. Abraham at bedside and trouble shooting as well to attmept to avoid intubation. Pt remains very restless and difficult to direct. Precedex gtt started and morphine given for anxiety and aggitation. XAVIER adkins handed off report to Edson. * Dena Carrera RN - 08/08/2024 11:00 AM EDT Wound Care consulted for Pressure Injury Prevention. Pt's Ladarius score= 19 on 08/07, previously was 18 Pt's pressure points assessed. Pt's Heels, Buttocks/coccyx, Back, Elbows, Occiput and ears all intact. Prevention Measures in place, including: [place] sheet with pillows, Foam heel protectors (in place, intact), Heels elevated off bed on pillows, Sacral foam, Zinc/Moisture Barrier ointment, Waffle chair cushion. Skin Care precaution order set in place. Dietitian consult in place. PT consult in place.D/W nursing staff. Will continue to follow pt. Please Voicera for any questions or concerns. Idalmis Carrera RN, BSN, CWCN * Jamaica Verdugo RN - 08/03/2024 8:30 PM EDT Pt found to have insulin drip running in channel labeled levophed running at 0.14 mcg/kg/min about 20 mL/hr. Channel immediately turned off and Dr. Doe notified of medication error. 12.5 mg of D50 given and BGT checks increased to q 30 minutes. Levophed drip restarted at 0.02 mcg/kg/min for hypotension. documented in this [facility]05-13-2025 Telephone encounter Note* Telephone Encounter - Morgan Suh MA - 08/09/2024 3:39 PM EDT Spoke to [facility] and office will be sent out to do welfare check on patient. Morgan Suh MA [facility]05-13-2025 Miscellaneous Notes* Telephone Encounter - Morgan Suh MA - 08/09/2024 3:39 PM EDT Spoke to [facility] and office will be sent out to do welfare check on patient. Morgan Suh MA * Telephone Encounter - Chapis Dickens APRN.CNP - 08/09/2024 3:26 PM EDT Unfortunately I cannot recall if patient exhibited any bizarre behavior during the last office visit with me. Regardless I would recommend asking for a welfare check Chapis Dickens APRN.CNP * Telephone Encounter - Fabienne Garcia LPN - 08/09/2024 2:41 PM EDT Patient call was going to be transferred to nurse from a PSS but her had hung up the call. The PSS said the patient wanted to know if Dr Plasencia knew how to speak equatorial guinean so he could learn the bible to get ready to go to [employer] or go to war. The PSS said he was little mad that he was on hold to geta nurse for almost 12 minutes. Not sure if the patient is this is his normal personality? Saw where HYDRAULIC LIFT OPERATOR had seen him in Apr for an appt sending note to her to review since PCP is out of the office this afternoon. Please advise [facility] Telephone encounter Note * Telephone Encounter - Chapis Dickens APRN.CNP - 08/09/2024 3:26 PM EDT Unfortunately I cannot recall if patient exhibited any bizarre behavior during the last office visit with me. Regardless I would recommend asking for a welfare check Chapis Dickens APRN.CNP [facility]05-13-2025 Telephone encounter Note* Telephone Encounter - Fabienne Garcia LPN - 08/09/2024 2:41 PM EDT Patient call was going to be transferred to nurse from a PSS but her had hung up the call. The PSS said the patient wanted to know if Dr Plasencia knew how to speak equatorial guinean so he could learn the bible to get ready to go to [facility] or go to war. The PSS said he was little mad that he was on hold to geta nurse for almost 12 minutes. Not sure if the patient is this is his normal personality? Saw where HYDRAULIC LIFT OPERATOR had seen him in Apr for an appt sending note to her to review since PCP is out of the office this afternoon. Please advise [facility]05-13-2025 NoteCare Management Progress Note Continues on IV Bumex. Gtt have been stopped. PT states home with [facility].. Length of Stay (Days): 6 LOS: [address] [place], [place] [id number] NoteReceived Cardiopulmonary Rehab Phase II Referral and reviewed chart. Patient does not have a qualifying diagnosis for outpatient cardiopulmonary rehab at this time. [facility]05-07-2025 [facility]05-07-2025 [facility] 08-03-2024 [facility]05-07-2025 NoteH&P reviewed. The patient was examined and there are no changes to the H&P. Will proceed with valve sparing aortic root replacement today. Antonieta Solano DO FACS [facility] History and physical note* Mars Solano DO - 08/03/2024 6:50 AM EDT H&P reviewed. The patient was examined and there are no changes to the H&P. Will proceed with valve sparing aortic root replacement today. Antonieta Solano DO [facility] Cardiothoracic Surgery Source Note - Mars Solano DO - 07/21/2024 11:45 AM EDT Images from the original note were not included. [facility] CARDIOVASCULAR & THORACIC SURGERY [address] [facility] [address] Dept: [phone] Dept Loc: [phone] Visit type: Established Reason for Visit: Discuss aortic surgery Assessment and plan 1. Aneurysm of ascending aorta without rupture (HCC) 2. Morbid obesity (HCC) 3. Essential hypertension 4. Shortness of breath Recommendations: With his nonobstructive coronary disease and reasonably good echo results I do not have an explanation for his shortness of breath or pain. I doubt it is from his aorta. He has not had pulmonary function testing yet; this is my next step in his workup. He will require ascending aorta and aortic root replacement at some point. I have offered this operation now in order to avoid his inevitable tearand emergent operation in the future. The risks, benefits, and alternatives were explained in detail. History of Present Illness Erickson Riggs is a 64 y.o. male known to Dr. Solano for ascending aortic aneurysm. Per note, pt has history of HTN, aortic aneurysm, afib, cardiomyopathy, SONIA, and solitary kidney. Pt follows with Cardiology who ordered an annual CTA chest which was completed on 04/26/24 and showed ascending thoracic aorta measures up to 5.[address] Solano Note 05/18/24 Recommendations: He is nearing the need for his aneurysm repair, though he likely has other problems causing him symptoms. This needs workup before proceeding with any surgical treatment. He first needs right/left heart catheterization to assess his chest pain. Echocardiogram needs to be done for ventricular function assessment. We will also get PFTs. Once this is complete he will return to the office for discussion about how to proceed. His functional status is quite poor, which makes him a less than ideal surgical candidate, unfortunately. Left and Right heart catheterization was performed 06/08/24 which showed mild post-capillary pulmonary HTN, minimal diffuse CAD with moderate disease of the ostium of OM1, and a markedly dilated ascending aorta. Transthoracic Echocardiogram was performed 07/04/24 and showed LVEF 74%, a trileaflet aortic valve, mild aortic valve regurgitation, and severely dilated Sinuses of Valsalva and ascending aorta, measuring 5.1 cm. Pt is a former smoker. Quit in 2004. Patient is here today to discuss surgery. He continues to complain of frequent shortness of breath and chest pain, even at rest. He does very little activity because of it. He does not smoke now but has recently. He does not have leg edema. He does not use his CPAP at night. Past Medical History Past Medical History: Diagnosis Date Alcohol abuse Aneurysm (HCC) Atrial fibrillation (HCC) CVA (cerebral vascular accident) (HCC) Hypertension Nicotine abuse SONIA (obstructive sleep apnea) Paroxysmal supraventricular tachycardia (HCC) Past Surgical History Past Surgical History: Procedure Laterality Date CARDIAC CATHETERIZATION N/A 06/08/2024 Performed by Joe Timmons MD at [facility] Cardiac Cath/EP Lab CHOLECYSTECTOMY 2015 NEPHRECTOMY Right 1998 Family History Family History Problem Relation Name Age of Onset Coronary artery disease Mother Heart attack Mother Coronary artery disease Father Heart attack Father Social History Marital status: , has 3 children. 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 status: Never Served Social History Tobacco Use Smoking status: Former Types: Cigarettes Start date: 2022 Quit date: 2004 Years since quittin.3 Smokeless tobacco: Never Substance Use Topics Alcohol use: Not Currently Comment: holidays/special occasions Drug use: Yes Frequency: 14.0 times per week Types: Marijuana Allergies Allergies Allergen Reactions Penicillins Hives Other Reaction(s): GI upset, hives Hives or GI upset-patient unsure Aspirin Hives Other Reaction(s): GI Upset, GI upset, hives Medications Current Outpatient Medications: amLODIPine (Norvasc) 10 MG tablet, Take 10 mg by mouth daily., Disp: , Rfl: doxazosin (Cardura) 2 MG tablet, Take 1 tablet by mouth Nightly., Disp: , Rfl: metoprolol tartrate (Lopressor) 25 MG tablet, Take 25 mg by mouth 2 times daily., Disp: , Rfl: Review of Systems Review of Systems Constitutional: Negative. HENT: Negative. Eyes: Negative. Respiratory: Positive for shortness of breath. Cardiovascular: Positive for chest pain. Gastrointestinal: Negative. Endocrine: Negative. Genitourinary: Negative. Musculoskeletal: Positive for back pain. Skin: Negative. Allergic/Immunologic: Negative. Neurological: Negative. Hematological: Negative. Psychiatric/Behavioral: Negative. Physical Exam Vitals: BP (!) 165/100 (BP Location: Right arm, Patient Position: Sitting, BP Cuff Size: Large adult) Pulse 75 Wt (!) 335 lb (152 kg) BMI 45.43 kg/m Constitutional: General: Not in acute distress. Appearance: Normal appearance. Not toxic-appearing. Ear, nose, mouth: Bilateral external ear and nose normal. Nose: Nose normal. Mouth: Appearance normal, no bleeding, moist mucus membranes Eyes: General: No scleral icterus. No discharge from bilateral eyes Extraocular Movements: Extraocular movements intact. Pupils equal and reactive bilaterally Cardiovascular: Heart: Regular rhythm. Normal heart sounds. Vascular: No carotid bruit. Edema: minimal edema in bilateral lower extremities Pulmonary: Effort: Pulmonary effort is normal. No respiratory distress. Breath sounds: Normal breath sounds. No wheezing. Chest wall: No tenderness. Abdominal: Appearance: Not distended Palpations: There is no abdominal tenderness, no guarding. Musculoskeletal: Bilateral upper and lower extremities: Normal range of motion, no deformity Head: Normocephalic and atraumatic. Neck: Normal range of motion and neck supple. No muscular tenderness. Lymphadenopathy: Cervical: No cervical adenopathy. Skin: General: Skin is warm and dry. Coloration: Skin is not jaundiced. Neurological: General: No focal deficit present. Cranial Nerves: No obvious cranial nerve deficit. Psychiatric: Mood and Affect: Mood normal. Thought Content: Thought content normal. Patient has good judgement and insight Mental Status: Alert and oriented to place, person, and time. Labs Auto WBC Date/Time Value Ref Range Status 06/01/2024 12:31 PM 11.5 (H) 3.6 - 10.7 10*3/uL Final Hemoglobin Date/Time Value Ref Range Status 06/01/2024 12:31 PM 14.9 13.0 - 18.0 g/dL Final Platelets Date/Time Value Ref Range Status 06/01/2024 12:31 PM 258 140 - 440 10*3/uL Final SODIUM Date/Time Value Ref Range Status 06/01/2024 12:31 PM 135 (L) 136 - 145 mmol/L Final POTASSIUM Date/Time Value Ref Range Status 06/01/2024 12:31 PM 4.5 3.5 - 5.1 mmol/L Final Comment: Plasma potassium values may be up to 0.5 mmol/L lower than serum values. CREATININE Date/Time Value Ref Range Status 06/01/2024 12:31 PM 1.15 0.72 - 1.25 mg/dL Final Imaging Transthoracic Echocardiogram 07/04/24 Interpretation Summary Left Ventricle: Left ventricle size is normal. Normal wall thickness. Normal left ventricular systolic function. EF by 2D Simpsons Biplane is 74%. Normal wall motion. Right Ventricle: Right ventricle is dilated. Normal systolic function. Aortic Valve: Mild (1+) regurgitation. Right Atrium: Right atrium is dilated. Aorta: Severely dilated sinuses of Valsalva. Severely dilated ascending aorta. Ao ascending diameter is 5.1 cm. No significant valvular abnormalities. Left and Right Heart Catheterization 06/08/24 Conclusion Hemodynamics LVEDP = 22 mmHg Blood pressure: 124/70 mmHg RA (mean A-wave): 14 mmHg RV: 36/1 mmHg PA: 38/12 mmHg (mPAP 25 mmHg) PCWP (mean A-wave): 21 mmHg RA Sat: 72% PA Sat: 70% Ao Sat: 95% Edgardo CO/CI: 6.5 L/min, 2.46 L/min/m2 TD CO/CI: 7.6 L/min, 2.85 L/min/m2 PVR (Edgardo): 1.53 GARCIA SVR (Edgardo): 967 dyn*sec/cm5 Valves Aortic Stenosis: None present Ascending aortography Dilated and uncoiled ascending aorta. No aortic insufficiency Coronary Arteriography Dominance: Right Left Main: Large caliber with minimal disease Left Anterior Descending: Large vessel with minimal diffuse disease Diagonals: 4 small diagonals present Left Circumflex: Large vessel with minimal diffuse disease Obtuse Marginals: Three present, 50% stenosis at the ostium of OM1 Right Coronary: Large vessel with minimal diffuse disease Right Posterior Descending: Moderately sized, no significant disease Right Posterolateral: Moderately sized, no significant disease Collaterals: None Complications None Conclusions Mild Post-Capillary Pulmonary Hypertension. Normal Cardiac Output and Cardiac Index. Right dominant coronary system Minimal diffuse CAD with moderate disease of the ostium of OM1. Markedly dilated ascending aorta CTA chest 04/26/24 TTE 05/29/22 CONCLUSIONS: - Exam indication: Ascending aortic aneurysm - The left ventricle is small. There is mild concentric left ventricular hypertrophy. Left ventricular systolic function is normal. EF = 67 5% (2D 4-ch.) Indeterminate left ventricular diastolic dysfunction. - The right ventricle is dilated. Right ventricular systolic function is normal. - The right atrial cavity is dilated. - There are no significant valvular abnormalities. - The visualized aorta is dilated with a maximal dimension of 5.1 cm. - Ascending aortic aneurysm measuring ~5.1 cm. Patient sent to [place] ER d/t possible dissection (clips [id number]) and chest pain. - The patient has not had a prior CC echocardiographic exam for comparison. Patient Care Team: PCP: Chapis Dickens APRN-PLUMBING MANAGER Cardiology: RUBEN Gaston DO [facility] Cardiothoracic Surgery documented in this [facility]05-02-2025 Telephone encounter Note* Telephone Encounter - Feliberto Carballo RN - 07/29/2024 11:43 AM EDT Pt called and is notified of providers results and instructions. Pt voices understanding. Tried to set up f/u appointment for Pt, but he said he was going to wait until after the surgery. Feliberto Carballo RN [facility]05-02-2025 Miscellaneous Notes* Telephone Encounter - Feliberto Carballo RN - 07/29/2024 11:43 AM EDT Pt called and is notified of providers results and instructions. Pt voices understanding. Tried to set up f/u appointment for Pt, but he said he was going to wait until after the surgery. Feliberto Carballo RN * Telephone Encounter - Christin Cuellar MA - 07/29/2024 10:02 AM EDT 2ND ATTEMPT No answer, mailbox is full. Sent Aledia message Christin Cuellar MA July 29, 2024 10:03 AM * Telephone Encounter - Chica Bañuelos LPN - 07/28/2024 10:50 AM EDT VM is full, [place] to [place] [facility] [place] Will try to call again later. Chica Bañuelos LPN\\ * Telephone Encounter - Mundo Plasencia MD - 07/27/2024 6:39 PM EDT Received labs from [facility]. Patient with new diagnosis of diabetes mellitus (HgbA1c 7.4%, glucose 135and 127). He is being scheduled for thoracic aneurysm surgery. Plan: Low carbohydrate diet for now. Treatment may be initiated during his hospital stay. Follow up here 2-4 weeks after surgery. [facility] Telephone encounter Note * Telephone Encounter - Christin Cuellar MA - 07/29/2024 10:02 AM EDT 2ND ATTEMPT No answer, mailbox is full. Sent mychart message Christin Cuellar MA July 29, 2024 10:03 AM [facility]05-01-2025 Telephone encounter Note* Telephone Encounter - Chica Bañuelos LPN - 07/28/2024 10:50 AM EDT VM is full, unable to leave msg. Will try to call again later. Chica Bañuelos LPN\\ [facility]04-30-2025 Telephone encounter Note* Telephone Encounter - Mundo Plasencia MD - 07/27/2024 6:39 PM EDT Received labs from [facility]. Patient with new diagnosis of diabetes mellitus (HgbA1c 7.4%, glucose 135and 127). He is being scheduled for thoracic aneurysm surgery. Plan: Low carbohydrate diet for now. Treatment may be initiated during his hospital stay. Follow up here 2-4 weeks after surgery. [facility]04-30-[address]25 [facility]04-27-2025 Telephone encounter Note* Telephone Encounter - GARY Farrell CNP - 07/24/2024 12:57 PM EDT Meds sent to [facility] in [place]. Surg proc orders placed. GARY Herr CNP 07/24/24 [id number] Miscellaneous Notes* Telephone Encounter - GARY Farrell CNP - 07/24/2024 12:57 PM EDT Meds sent to [facility] in [place]. Surg proc orders placed. GARY Herr CNP 07/24/24 * Telephone Encounter - Alyse Moctezuma MA - 07/22/2024 11:28 AM EDT Prep for Procedure Order Request: 07/22/24 Surgeon: Russ Surgery/Procedure: Ascending Aorta and Aortic Root Replacement and ENRIQUE Diagnosis: Aortic anneurysm Plan Admit: yes PAT Appointment: yes Date if yes: 07/27/24 10 am Date of Surgery/Procedure: 08/03/24 7 am Medications: [] Hold as directed by CTS: [x] Per PAT protocol Medication needed prescribed: [] None [x] Nasal ointment and mouth rinse [] Other: documented in this [facility]04-25-2025 Telephone encounter Note* Telephone Encounter - Alyse Moctezuma MA - 07/22/2024 11:28 AM EDT Prep for Procedure Order Request: 07/22/24 Surgeon: Russ Surgery/Procedure: Ascending Aorta and Aortic Root Replacement and ENRIQUE Diagnosis: Aortic anneurysm Plan Admit: yes PAT Appointment: yes Date if yes: 07/27/24 10 am Date of Surgery/Procedure: 08/03/24 7 am Medications: [] Hold as directed by CTS: [x] Per PAT protocol Medication needed prescribed: [] None [x] Nasal ointment and mouth rinse [] Other: [id number] NoteOrders Placed This Encounter Procedures Complete PFT study Standing Status: Future Standing Expiration Date: 07/21/2025[facility]04-24-2025 History of Present illness Narrative* Mars Solano DO - 07/21/2024 11:45 AM EDT Images from the original note were not included. [facility] CARDIOVASCULAR & THORACIC SURGERY [address] [facility] [address] Dept: [phone] Dept Loc: [phone] Visit type: Established Reason for Visit: Discuss aortic surgery Assessment and plan 1. Aneurysm of ascending aorta without rupture (HCC) 2. Morbid obesity (HCC) 3. Essential hypertension 4. Shortness of breath Recommendations: With his nonobstructive coronary disease and reasonably good echo results I do not have an explanation for his shortness of breath or pain. I doubt it is from his aorta. He has not had pulmonary function testing yet; this is my next step in his workup. He will require ascending aorta and aortic root replacement at some point. I have offered this operation now in order to avoid his inevitable tearand emergent operation in the future. The risks, benefits, and alternatives were explained in detail. History of Present Illness Erickson Riggs is a 64 y.o. male known to Dr. Solano for ascending aortic aneurysm. Per note, pt has history of HTN, aortic aneurysm, afib, cardiomyopathy, SONIA, and solitary kidney. Pt follows with Cardiology who ordered an annual CTA chest which was completed on 04/26/24 and showed ascending thoracic aorta measures up to 5.[address] Solano Note 05/18/24 Recommendations: He is nearing the need for his aneurysm repair, though he likely has other problems causing him symptoms. This needs workup before proceeding with any surgical treatment. He first needs right/left heart catheterization to assess his chest pain. Echocardiogram needs to be done for ventricular function assessment. We will also get PFTs. Once this is complete he will return to the office for discussion about how to proceed. His functional status is quite poor, which makes him a less than ideal surgical candidate, unfortunately. Left and Right heart catheterization was performed 06/08/24 which showed mild post-capillary pulmonary HTN, minimal diffuse CAD with moderate disease of the ostium of OM1, and a markedly dilated ascending aorta. Transthoracic Echocardiogram was performed 07/04/24 and showed LVEF 74%, a trileaflet aortic valve, mild aortic valve regurgitation, and severely dilated Sinuses of Valsalva and ascending aorta, measuring 5.1 cm. Pt is a former smoker. Quit in 2004. Patient is here today to discuss surgery. He continues to complain of frequent shortness of breath and chest pain, even at rest. He does very little activity because of it. He does not smoke now but has recently. He does not have leg edema. He does not use his CPAP at night. Past Medical History Past Medical History: Diagnosis Date Alcohol abuse Aneurysm (HCC) Atrial fibrillation (HCC) CVA (cerebral vascular accident) (HCC) Hypertension Nicotine abuse SONIA (obstructive sleep apnea) Paroxysmal supraventricular tachycardia (HCC) Past Surgical History Past Surgical History: Procedure Laterality Date CARDIAC CATHETERIZATION N/A 06/08/2024 Performed by Joe Timmons MD at [facility] Cardiac Cath/EP Lab CHOLECYSTECTOMY 2015 NEPHRECTOMY Right 1999 Family History Family History Problem Relation Name Age of Onset Coronary artery disease Mother Heart attack Mother Coronary artery disease Father Heart attack Father Social History Marital status: , has 3 children. 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 status: Never Served Social History Tobacco Use Smoking status: Former Types: Cigarettes Start date: 2022 Quit date: 2004 Years since quittin.3 Smokeless tobacco: Never Substance Use Topics Alcohol use: Not Currently Comment: holidays/special occasions Drug use: Yes Frequency: 14.0 times per week Types: Marijuana Allergies Allergies Allergen Reactions Penicillins Hives Other Reaction(s): GI upset, hives Hives or GI upset-patient unsure Aspirin Hives Other Reaction(s): GI Upset, GI upset, hives Medications Current Outpatient Medications: amLODIPine (Norvasc) 10 MG tablet, Take 10 mg by mouth daily., Disp: , Rfl: doxazosin (Cardura) 2 MG tablet, Take 1 tablet by mouth Nightly., Disp: , Rfl: metoprolol tartrate (Lopressor) 25 MG tablet, Take 25 mg by mouth 2 times daily., Disp: , Rfl: Review of Systems Review of Systems Constitutional: Negative. HENT: Negative. Eyes: Negative. Respiratory: Positive for shortness of breath. Cardiovascular: Positive for chest pain. Gastrointestinal: Negative. Endocrine: Negative. Genitourinary: Negative. Musculoskeletal: Positive for back pain. Skin: Negative. Allergic/Immunologic: Negative. Neurological: Negative. Hematological: Negative. Psychiatric/Behavioral: Negative. Physical Exam Vitals: BP (!) 165/100 (BP Location: Right arm, Patient Position: Sitting, BP Cuff Size: Large adult) Pulse 75 Wt (!) 335 lb (152 kg) BMI 45.43 kg/m Constitutional: General: Not in acute distress. Appearance: Normal appearance. Not toxic-appearing. Ear, nose, mouth: Bilateral external ear and nose normal. Nose: Nose normal. Mouth: Appearance normal, no bleeding, moist mucus membranes Eyes: General: No scleral icterus. No discharge from bilateral eyes Extraocular Movements: Extraocular movements intact. Pupils equal and reactive bilaterally Cardiovascular: Heart: Regular rhythm. Normal heart sounds. Vascular: No carotid bruit. Edema: minimal edema in bilateral lower extremities Pulmonary: Effort: Pulmonary effort is normal. No respiratory distress. Breath sounds: Normal breath sounds. No wheezing. Chest wall: No tenderness. Abdominal: Appearance: Not distended Palpations: There is no abdominal tenderness, no guarding. Musculoskeletal: Bilateral upper and lower extremities: Normal range of motion, no deformity Head: Normocephalic and atraumatic. Neck: Normal range of motion and neck supple. No muscular tenderness. Lymphadenopathy: Cervical: No cervical adenopathy. Skin: General: Skin is warm and dry. Coloration: Skin is not jaundiced. Neurological: General: No focal deficit present. Cranial Nerves: No obvious cranial nerve deficit. Psychiatric: Mood and Affect: Mood normal. Thought Content: Thought content normal. Patient has good judgement and insight Mental Status: Alert and oriented to place, person, and time. Labs Auto WBC Date/Time Value Ref Range Status 06/01/2024 12:31 PM 11.5 (H) 3.6 - 10.7 10*3/uL Final Hemoglobin Date/Time Value Ref Range Status 06/01/2024 12:31 PM 14.9 13.0 - 18.0 g/dL Final Platelets Date/Time Value Ref Range Status 06/01/2024 12:31 PM 258 140 - 440 10*3/uL Final SODIUM Date/Time Value Ref Range Status 06/01/2024 12:31 PM 135 (L) 136 - 145 mmol/L Final POTASSIUM Date/Time Value Ref Range Status 06/01/2024 12:31 PM 4.5 3.5 - 5.1 mmol/L Final Comment: Plasma potassium values may be up to 0.5 mmol/L lower than serum values. CREATININE Date/Time Value Ref Range Status 06/01/2024 12:31 PM 1.15 0.72 - 1.25 mg/dL Final Imaging Transthoracic Echocardiogram 07/04/24 Interpretation Summary Left Ventricle: Left ventricle size is normal. Normal wall thickness. Normal left ventricular systolic function. EF by 2D Simpsons Biplane is 74%. Normal wall motion. Right Ventricle: Right ventricle is dilated. Normal systolic function. Aortic Valve: Mild (1+) regurgitation. Right Atrium: Right atrium is dilated. Aorta: Severely dilated sinuses of Valsalva. Severely dilated ascending aorta. Ao ascending diameter is 5.1 cm. No significant valvular abnormalities. Left and Right Heart Catheterization 06/08/24 Conclusion Hemodynamics LVEDP = 22 mmHg Blood pressure: 124/70 mmHg RA (mean A-wave): 14 mmHg RV: 36/1 mmHg PA: 38/12 mmHg (mPAP 25 mmHg) PCWP (mean A-wave): 21 mmHg RA Sat: 72% PA Sat: 70% Ao Sat: 95% Edgardo CO/CI: 6.5 L/min, 2.46 L/min/m2 TD CO/CI: 7.6 L/min, 2.85 L/min/m2 PVR (Edgardo): 1.53 GARCIA SVR (Edgardo): 967 dyn*sec/cm5 Valves Aortic Stenosis: None present Ascending aortography Dilated and uncoiled ascending aorta. No aortic insufficiency Coronary Arteriography Dominance: Right Left Main: Large caliber with minimal disease Left Anterior Descending: Large vessel with minimal diffuse disease Diagonals: 4 small diagonals present Left Circumflex: Large vessel with minimal diffuse disease Obtuse Marginals: Three present, 50% stenosis at the ostium of OM1 Right Coronary: Large vessel with minimal diffuse disease Right Posterior Descending: Moderately sized, no significant disease Right Posterolateral: Moderately sized, no significant disease Collaterals: None Complications None Conclusions Mild Post-Capillary Pulmonary Hypertension. Normal Cardiac Output and Cardiac Index. Right dominant coronary system Minimal diffuse CAD with moderate disease of the ostium of OM1. Markedly dilated ascending aorta CTA chest 04/26/24 TTE 05/29/22 CONCLUSIONS: - Exam indication: Ascending aortic aneurysm - The left ventricle is small. There is mild concentric left ventricular hypertrophy. Left ventricular systolic function is normal. EF = 67 5% (2D 4-ch.) Indeterminate left ventricular diastolic dysfunction. - The right ventricle is dilated. Right ventricular systolic function is normal. - The right atrial cavity is dilated. - There are no significant valvular abnormalities. - The visualized aorta is dilated with a maximal dimension of 5.1 cm. - Ascending aortic aneurysm measuring ~5.1 cm. Patient sent to [place] ER d/t possible dissection (clips [id number]) and chest pain. - The patient has not had a prior CC echocardiographic exam for comparison. Patient Care Team: PCP: Chapis Dickens APRN-PLUMBING MANAGER Cardiology: RUBEN Gaston DO [facility] Cardiothoracic Surgery documented in this [facility]04-24-[address]25 [facility] 07-13-2024 Telephone encounter Note* Telephone Encounter - Chica Bañuelos LPN - 07/13/2024 1:16 PM EDT Duplicate. Chica Bañuelos LPN [facility]04-16-2025 Miscellaneous Notes* Telephone Encounter - Chica Bañuelos LPN - 07/13/2024 1:16 PM EDT Duplicate. Chica Bañuelos LPN * Telephone Encounter - Merle Saucedo - 07/13/2024 1:00 PM EDT Prescription Refill Information The patient has been identified by name and date of : Yes Caregiver verified no other encounters exist for this prescription request: Yes Caregiver confirmed with patient/requestor that no other refills are due, in the near future, with this provider at this time: Yes The last office visit in the department: 05/04/24 Does the patient have a future office visit with this provider/department: Yes Requested Prescriptions Pending Prescriptions Disp Refills doxazosin (CARDURA) 2 mg tablet 30 tablet 5 Sig: Take 1 tablet by mouth daily at bedtime. Merle Saucedo July 13, 2024 1:01 PM [facility] Telephone encounter Note * Telephone Encounter - Merle Saucedo - 07/13/2024 1:00 PM EDT Prescription Refill Information The patient has been identified by name and date of : Yes Caregiver verified no other encounters exist for this prescription request: Yes Caregiver confirmed with patient/requestor that no other refills are due, in the near future, with this provider at this time: Yes The last office visit in the department: 05/04/24 Does the patient have a future office visit with this provider/department: Yes Requested Prescriptions Pending Prescriptions Disp Refills doxazosin (CARDURA) 2 mg tablet 30 tablet 5 Sig: Take 1 tablet by mouth daily at bedtime. Merle Saucedo July 13, 2024 1:01 PM [facility]03-12-2025 Hospital Discharge instructions* Discharge Instructions* Stephenie Dubon, COMMERCIAL PEST CONTROL REPRESENTATIVE - PLUMBING MANAGER - 06/08/2024 11:15 AM EDT Call your doctor with any medication questions or if you notice any side effects from your medications. If you are unable to fill your medications, please call your Re Recording [employer]er immediately. The office number is located with your follow-up appointment information. Call your doctor if any redness or drainage from the wound site. DO NOT stop taking your medication unless instructed to do so by your doctor. Read the drug information material that were given to you and take medications as instructed by your doctor. New drugs may have been added to your medications, that will strengthen your heart and prevent re-stenosis of the coronary arteries. Drink 6 glasses of water (8 ounces each) over the next 24 hours. Water helps clear the dye from your body. No alcoholic beverages for 24 hours. It may interfere with healing. No exercise or sex for 5 days. Call 911 for chest pain, arm pain, nausea, neck pain, dizziness or unusual sweating AND your pain has not relieved with 2 doses of Nitroglycerin. WRIST: Call your doctor if a lump at the puncture site enlarges or is larger than marble size. Call your doctor for numbness, tingling, or swelling of the fingers, hand or wrist. Call your doctor for increased area or bruising with discoloration extending into the arm. If bleeding occurs, hold pressure with your thumb against the puncture site and your finger againstthe back of the wrist for 10 minutes, if BLEEDING continues CALL 911. OK to shower. No tub baths, swimming pools or hot tub soaking for three days. Wash site daily with soap and water, dry gently. The healing wound should remain soft and dry. Keepsite clean and dry, no soaking of wrist for three days (no cleaning or dish washing). Remove band aid the day after procedure and leave open to air. No bending of affected wrist for 24 hours. DO NOT lift more than three pounds for 3-5 days[address] driving for 24 hours. PLEASE CALL YOUR HEART DOCTOR IF YOU CANNOT GET YOUR MEDICATIONS. THE NUMBER IS LISTED WITH YOUR FOLLOW-UP APPOINTMENT. Procedure Sedation Instructions If you have received sedation: you must have someone drive you home You should not drive a car, operate machinery, drink alcohol or perform any activity that requires alertness for the rest of the day. The effects of the sedative should be gone by tomorrow. Brachial Discharge Instructions Observe arm site for swelling, redness, warmth, or bleeding. If these occur, notify your doctor listed below. Do not lift anything over 10 pounds for the next 3 days. Slight swelling or bruising is expected. For oozing, apply pressure for 10-15 minutes. For brisk bleeding that does not stop, come to the Emergency department. Keep arm site covered for 5 days. Change bandage daily. Resume pre-procedure diet. Take all medications as prescribed by your doctor. Procedure Sedation Instructions: If you have received sedation you must have someone drive you home. You should not drive a car, operate machinery, drink alcohol or perform any activity that requires alertness for the rest of the day. The effects of the sedative should be gone by tomorrow. documented in this [facility]03-12-2025 Nurse procedure note* Pre- Sedation Documentation - Amelia Chao MD - 06/08/2024 9:53 AM EDT Sedation Plan ASA class 3 - patient with severe systemic disease Mallampati class: IV - only hard palate visible. Sedation plan: local anesthesia Risks, benefits, and alternatives discussed with patient. Immediate reassessment prior to sedation: Patient's status reviewed and vital signs assessed; acceptable to perform procedure and proceed to administer sedation as planned. Cosigned by Joe Timmons MD at 06/08/2024 11:26 AM EDT [facility] [employer] Phone: [phone]) 188-726503-12-2025 Miscellaneous Notes* Pre-Sedation Documentation - Amelia Chao MD - 06/08/2024 9:53 AM EDT Sedation Plan ASA class 3 - patient with severe systemic disease Mallampati class: IV - only hard palate visible. Sedation plan: local anesthesia Risks, benefits, and alternatives discussed with patient. Immediate reassessment prior to sedation: Patient's status reviewed and vital signs assessed; acceptable to perform procedure and proceed to administer sedation as planned. Cosigned by Joe Timmons MD at 06/08/2024 11:26 AM EDT documented in this [facility]03-12-2025 Attending History and physical note* Joe Timmons MD - 06/08/2024 9:51 AM EDT H&P reviewed. The patient was examined and there are no changes to the H&P. Source Note - Stephenie Dubon APRN - PLUMBING MANAGER - 06/03/2024 3:27 PM EST Images from the original note were not included. Addendum: Pre-op R/LHC for Ascending Aortic Aneurysm repair by Dr. Solano. NOTED TO HAVE ALLERGY TO ASA- HIVES, GI UPSET. Coronary Appropriate Use Criteria Coronary Presentation (select one): Pre-Operative Evaluation - Surgery Type: Cardiac Surgery, Functional Capacity: Unknown, Surgical Risk: High Risk: Vascular, Solid Organ Transplant Surgery: No History of CABG (select one): No Diabetes (select one): No Anginal Classification (CCS) within 2 weeks (select one): CCS III - Symptoms with everyday living activities, i.e. moderate limitation Anti-anginal Meds within 2 weeks (select all that apply): Yes: Beta Blockers and Calcium Channel Blockers Stress or Imaging studies performed (select one), risk/extent of ischemia (select one if applicable): No, Unavailable Patient undergoing renal transplant or percutaneous valve procedure (select one): No NYHA Classification: N/A, no history of HF Frailty Score :3 [facility] Protocol: No H+ P copied to chart from Dr. Bragg progress note dated 06/01/[address] Timmons. Office Visit 06/01/2024 [facility] Aashish Bragg MD Cardiology Aneurysm of ascending aorta without rupture (HCC) Dx New Patient Pre-op Exam; Referred by Mars Solano DO Reason for Visit Progress Notes Aashish Bragg MD (Physician) Cardiology Expand All [facility] All [facility] Medical [facility] Cardiology [facility] - [place] [address] [facility] [address] Dept: [phone] Dept Visit type: New : 1960 DATE of SERVICE: 06/01/2024 Chief Complaint: Chief Complaint Patient presents with New Patient Pre-op Exam History of Present Illness: Erickson Riggs is a 64 y.o. male who presents today for cardiac evaluation in preparation to possible repair of an ascending aortic aneurysm measuring 5.2 cm. Patient was referred by Dr. Solano, NIKKO,for cardiac evaluation and to arrange right and left heart catheterization. 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 He is a former smoker. He has chronic chest pain which is anterior, at the lateral aspect of his chest and posterior and almost always present. Family history is positive for heart disease in his mother. He was seen by Dr. Solano 05/18/2024. He is approaching the need to have his aneurysm repaired, therefore Dr. Solano recommended to proceed with right and left heart catheterization and repeat echocardiogram. Past Medical History: Medical History Past Medical History: Diagnosis Date Alcohol abuse Aneurysm (HCC) Atrial fibrillation (HCC) CVA (cerebral vascular accident) (HCC) Hypertension Nicotine abuse SONIA (obstructive sleep apnea) Paroxysmal supraventricular tachycardia (HCC) Past Surgical History Surgical History Past Surgical History: Procedure Laterality Date CHOLECYSTECTOMY 2015 NEPHRECTOMY Right 1998 Family History Family History Family History Problem Relation Name Age of Onset Coronary artery disease Mother Heart attack Mother Coronary artery disease Father Heart attack Father Social History Social History Social History Tobacco Use Smoking status: Former Types: Cigarettes Start date: 2022 Quit date: 2004 Years since quittin.1 Smokeless tobacco: Never Substance Use Topics Alcohol use: Not Currently Comment: holidays/special occasions Drug use: Yes Frequency: 14.0 times per week Types: Marijuana Allergies: Allergies Allergies Allergen Reactions Penicillins Hives Other Reaction(s): GI upset, hives Hives or GI upset-patient unsure Aspirin Hives Other Reaction(s): GI Upset, GI upset, hives Medications: Current Medications Current Outpatient Medications: amLODIPine (Norvasc) 10 MG tablet, Take 10 mg by mouth daily., Disp: , Rfl: doxazosin (Cardura) 2 MG tablet, Take 1 tablet by mouth Nightly., Disp: , Rfl: metoprolol tartrate (Lopressor) 25 MG tablet, Take 25 mg by mouth 2 times daily., Disp: , Rfl: Calcium Carb-Cholecalciferol (CALCIUM CARBONATE-VITAMIN D3 PO), Take 1 tablet by mouth daily., Disp: , Rfl: cinnamon 500 MG capsule, Take 1,000 mg by mouth daily., Disp: , Rfl: TURMERIC PO, Take 1,000 mg by mouth daily., Disp: , Rfl: Review of Systems: Review of Systems Constitutional: Positive for fatigue. Respiratory: Positive for chest tightness. Negative for shortness of breath. Cardiovascular: Positive for chest pain (Since NEPHRECTOMY) and palpitations. Neurological: Negative for dizziness, syncope and light-headedness. Physical Examination: Vitals: Vitals Vitals: 06/01/24 1101 06/01/24 1118 BP: (S) (!) 140/78 (!) 152/88 BP Location: Left arm Left arm Patient Position: Sitting Sitting BP Cuff Size: Large adult Pulse: 68 SpO2: 97% Weight: (!) 337 lb 9.6 oz (153 kg) Height: 6' (1.829 m) Body mass index is 45.79 kg/m . Physical Exam Constitutional: Appearance: He is morbidly obese. HENT: Head: Normocephalic and atraumatic. Nose: Nose normal. Mouth/Throat: Dentition: Abnormal dentition. Eyes: Extraocular Movements: Extraocular movements intact. Conjunctiva/sclera: Conjunctivae normal. Neck: Vascular: No carotid bruit. Cardiovascular: Rate and Rhythm: Normal rate and regular rhythm. Pulses: Normal pulses. Heart sounds: Normal heart sounds. No murmur heard. No gallop. Pulmonary: Effort: Pulmonary effort is normal. Breath sounds: Normal breath sounds. No wheezing. Abdominal: General: Bowel sounds are normal. Palpations: Abdomen is soft. Musculoskeletal: Right lower leg: No edema. Left lower leg: No edema. Skin: General: Skin is warm and dry. Neurological: General: No focal deficit present. Mental Status: He is alert and oriented to person, place, and time. Psychiatric: Mood and Affect: Mood normal. Behavior: Behavior normal. Laboratory Tests: No results found for: "WBC", "HGB", "HCT", "MCV", "PLT" No results found for: "GLUCOSE", "CALCIUM", "NA", "K", "CO2", "CL", "BUN", CREATININE No results found for: "NA", "K", "CL", "CO2", "BUN", "CREATININE", "GLUCOSE", "CALCIUM", "PROT", "BILITOT", "ALKPHOS", "AST", "ALT" No results found for: "CREATININE" No results found for: "CHLPL", "CHOL" No results found for: "TRIG" No results found for: "HDL" No results found for: "LDLCALC" No results found for: "BNP" Cardiac Tests: EC06/01/24 Assessment and Plan: 1. Aneurysm of ascending aorta without rupture (HCC) Erickson Riggs has a 5.2 cm ascending aortic aneurysm. He is approaching a point where surgery is necessary as the risk for rupture is significantly increased. Therefore, as recommended by cardiothoracic surgery arrangements for right and left heart catheterization as well as an echocardiogram willbe made. Procedure, risks, benefits, alternatives were reviewed with the patient. The patient unders tands, accepts and wishes to proceed. If scheduling and coordinating the echocardiogram with the cardiac catheterization is challenging patient may go ahead and [facility] of the lab. In that case we will request to have a copy of the images on disc. The patient will follow-up with Dr. Solano. I reviewed my assessment and plan with Erickson Riggs . All questions were answered. NOTE: This report was transcribed using voice recognition software. Every effort was made to ensureaccuracy; however, inadvertent computerized linter drier operator errors may be present. Cosigned by Joe Timmons MD at 06/03/2024 6:50 PM EST [employer] Work Phone: [phone] NoteH&P reviewed. The patient was examined and there are no changes to the H&P.[facility] [id number] History and physical note* Joe Timmons MD - 06/08/2024 9:51 AM EDT H&P reviewed. The patient was examined and there are no changes to the H&P. Source Note - GARY Briseno CNP - 06/03/2024 3:27 PM EST Images from the original note were not included. Addendum: Pre-op R/LHC for Ascending Aortic Aneurysm repair by Dr. Solano. NOTED TO HAVE ALLERGY TO ASA- HIVES, GI UPSET. Coronary Appropriate Use Criteria Coronary Presentation (select one): Pre-Operative Evaluation - Surgery Type: Cardiac Surgery, Functional Capacity: Unknown, Surgical Risk: High Risk: Vascular, Solid Organ Transplant Surgery: No History of CABG (select one): No Diabetes (select one): No Anginal Classification (CCS) within 2 weeks (select one): CCS III - Symptoms with everyday living activities, i.e. moderate limitation Anti-anginal Meds within 2 weeks (select all that apply): Yes: Beta Blockers and Calcium Channel Blockers Stress or Imaging studies performed (select one), risk/extent of ischemia (select one if applicable): No, Unavailable Patient undergoing renal transplant or percutaneous valve procedure (select one): No NYHA Classification: N/A, no history of HF Frailty Score :3 [place] Protocol: No H+ P copied to chart from Dr. Bragg progress note dated 06/01/[address] Timmons. Office Visit 06/01/2024 [facility] Aashish Bragg MD Cardiology Aneurysm of ascending aorta without rupture (HCC) Dx New Patient Pre-op Exam; Referred by Mars Solano DO Reason for Visit Progress Notes Aashish Bragg MD (Physician) Cardiology Expand All [facility] All [facility] Cardiology [address] [address] Dept: [phone] Dept Visit type: New : 1960 DATE of SERVICE: 06/01/2024 Chief Complaint: Chief Complaint Patient presents with New Patient Pre-op Exam History of Present Illness: Erickson Riggs is a 64 y.o. male who presents today for cardiac evaluation in preparation to possible repair of an ascending aortic aneurysm measuring 5.2 cm. Patient was referred by Dr. Solano, NIKKO,for cardiac evaluation and to arrange right and left heart catheterization. 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 He is a former smoker. He has chronic chest pain which is anterior, at the lateral aspect of his chest and posterior and almost always present. Family history is positive for heart disease in his mother. He was seen by Dr. Solano 05/18/2024. He is approaching the need to have his aneurysm repaired, therefore Dr. Solano recommended to proceed with right and left heart catheterization and repeat echocardiogram. Past Medical History: Medical History Past Medical History: Diagnosis Date Alcohol abuse Aneurysm (HCC) Atrial fibrillation (HCC) CVA (cerebral vascular accident) (HCC) Hypertension Nicotine abuse SONIA (obstructive sleep apnea) Paroxysmal supraventricular tachycardia (HCC) Past Surgical History Surgical History Past Surgical History: Procedure Laterality Date CHOLECYSTECTOMY 2015 NEPHRECTOMY Right 1999 Family History Family History Family History Problem Relation Name Age of Onset Coronary artery disease Mother Heart attack Mother Coronary artery disease Father Heart attack Father Social History Social History Social History Tobacco Use Smoking status: Former Types: Cigarettes Start date: 2022 Quit date: 2004 Years since quittin.1 Smokeless tobacco: Never Substance Use Topics Alcohol use: Not Currently Comment: holidays/special occasions Drug use: Yes Frequency: 14.0 times per week Types: Marijuana Allergies: Allergies Allergies Allergen Reactions Penicillins Hives Other Reaction(s): GI upset, hives Hives or GI upset-patient unsure Aspirin Hives Other Reaction(s): GI Upset, GI upset, hives Medications: Current Medications Current Outpatient Medications: amLODIPine (Norvasc) 10 MG tablet, Take 10 mg by mouth daily., Disp: , Rfl: doxazosin (Cardura) 2 MG tablet, Take 1 tablet by mouth Nightly., Disp: , Rfl: metoprolol tartrate (Lopressor) 25 MG tablet, Take 25 mg by mouth 2 times daily., Disp: , Rfl: Calcium Carb-Cholecalciferol (CALCIUM CARBONATE-VITAMIN D3 PO), Take 1 tablet by mouth daily., Disp: , Rfl: cinnamon 500 MG capsule, Take 1,000 mg by mouth daily., Disp: , Rfl: TURMERIC PO, Take 1,000 mg by mouth daily., Disp: , Rfl: Review of Systems: Review of Systems Constitutional: Positive for fatigue. Respiratory: Positive for chest tightness. Negative for shortness of breath. Cardiovascular: Positive for chest pain (Since NEPHRECTOMY) and palpitations. Neurological: Negative for dizziness, syncope and light-headedness. Physical Examination: Vitals: Vitals Vitals: 06/01/24 1101 06/01/24 1118 BP: (S) (!) 140/78 (!) 152/88 BP Location: Left arm Left arm Patient Position: Sitting Sitting BP Cuff Size: Large adult Pulse: 68 SpO2: 97% Weight: (!) 337 lb 9.6 oz (153 kg) Height: 6' (1.829 m) Body mass index is 45.79 kg/m . Physical Exam Constitutional: Appearance: He is morbidly obese. HENT: Head: Normocephalic and atraumatic. Nose: Nose normal. Mouth/Throat: Dentition: Abnormal dentition. Eyes: Extraocular Movements: Extraocular movements intact. Conjunctiva/sclera: Conjunctivae normal. Neck: Vascular: No carotid bruit. Cardiovascular: Rate and Rhythm: Normal rate and regular rhythm. Pulses: Normal pulses. Heart sounds: Normal heart sounds. No murmur heard. No gallop. Pulmonary: Effort: Pulmonary effort is normal. Breath sounds: Normal breath sounds. No wheezing. Abdominal: General: Bowel sounds are normal. Palpations: Abdomen is soft. Musculoskeletal: Right lower leg: No edema. Left lower leg: No edema. Skin: General: Skin is warm and dry. Neurological: General: No focal deficit present. Mental Status: He is alert and oriented to person, place, and time. Psychiatric: Mood and Affect: Mood normal. Behavior: Behavior normal. Laboratory Tests: No results found for: "WBC", "HGB", "HCT", "MCV", "PLT" No results found for: "GLUCOSE", "CALCIUM", "NA", "K", "CO2", "CL", "BUN", CREATININE No results found for: "NA", "K", "CL", "CO2", "BUN", "CREATININE", "GLUCOSE", "CALCIUM", "PROT", "BILITOT", "ALKPHOS", "AST", "ALT" No results found for: "CREATININE" No results found for: "CHLPL", "CHOL" No results found for: "TRIG" No results found for: "HDL" No results found for: "LDLCALC" No results found for: "BNP" Cardiac Tests: EC06/01/24 Assessment and Plan: 1. Aneurysm of ascending aorta without rupture (HCC) Erickson Riggs has a 5.2 cm ascending aortic aneurysm. He is approaching a point where surgery is necessary as the risk for rupture is significantly increased. Therefore, as recommended by cardiothoracic surgery arrangements for right and left heart catheterization as well as an echocardiogram willbe made. Procedure, risks, benefits, alternatives were reviewed with the patient. The patient unders tands, accepts and wishes to proceed. If scheduling and coordinating the echocardiogram with the cardiac catheterization is challenging patient [place] go [place] In that case we will request to have a copy of the images on disc. The patient will follow-up with Dr. Solano. I reviewed my assessment and plan with Erickson Riggs . All questions were answered. NOTE: This report was transcribed using voice recognition software. Every effort was made to ensureaccuracy; however, inadvertent computerized linter drier operator errors may be present. Cosigned by Joe Timmons MD at 06/03/2024 6:50 PM EST documented in this encounterSUpper Valley Medical [id number] NoteHaving anxiety when attempting to lay flat which he will need to do for scheduled procedure. Dr. Timmons informed. Fentanyl 25mg IV and Versed 1mg IV per his verbal order. Benadryl and Valium not given.[facility] 06-08-2024 Nurse Note* Aj Fong RN - 06/08/2024 9:38 AM EDT Having anxiety when attempting to lay flat which he will need to do for scheduled procedure. Dr. Timmons informed. Fentanyl 25mg IV and Versed 1mg IV per his verbal order. Benadryl and Valium not given. [id number]* Aj Fong RN - 06/08/2024 9:38 AM EDT Having anxiety when attempting to lay flat which he will need to do for scheduled procedure. Dr. Timmons informed. Fentanyl 25mg IV and Versed 1mg IV per his verbal order. Benadryl and Valium not given. documented in this [facility]03-07-2025 Telephone encounter Note* Telephone Encounter - GARY Briseno CNP - 06/03/2024 3:34 PM EST Prep for Proc completed. Noted to be Pre-op for aneurysm repair by Dr. Solano. Noted to have allergy to ASA (Hives). Will make Accounting Officer aware of this just in case. [place] Phone: [phone] Miscellaneous Notes* Telephone Encounter - GARY Briseno CNP - 06/03/2024 3:34 PM EST Prep for Proc completed. Noted to be Pre-op for aneurysm repair by Dr. Solano. Noted to have allergy to ASA (Hives). Will make Accounting Officer aware of this just in case. * Telephone Encounter - Debra Moreno RN - 06/01/2024 12:11 PM EST You are scheduled for L/RHC with Dr Timmons on 06/08/24 at 10am Report to [facility] by 8:30am to check in Park in the [address], or use [employer] parking at [address]. Enter at [address] and proceed to the North or East elevators, take them to the 1st floor, and follow the signs to the [facility]. You will need a designated ambulance driver paramedic for the day of your procedure to take you home No driving for 24-72 hours post procedure Nothing to eat or drink after midnight Please take your am medications with sips of water prior to leaving for the hospital. Get blood work done today -Both written and verbal instructions given in office on 06/01/24. Pt verbalized understanding and knows to call the office with questions or concerns. * Telephone Encounter - Kaitlyn Garza - 06/01/2024 11:55 AM EST Dx: Aneurysm of ascending aorta without rupture Procedure: L/RHC Date/Time: 06/08/24 at 10am Surgeon: Bhavin Location: [facility] Admission: OUTPATIENT CATH scheduled, No auth required Medicare primary, added to [place] calendar documented in this [facility]03-07-2025 History and physical note* Stephenie Dubon, COMMERCIAL PEST CONTROL REPRESENTATIVE - PLUMBING MANAGER - 06/03/2024 3:27 PM EST Images from the original note were not included. Addendum: Pre-op R/LHC for Ascending Aortic Aneurysm repair by Dr. Solano. NOTED TO HAVE ALLERGY TO ASA- HIVES, GI UPSET. Coronary Appropriate Use Criteria Coronary Presentation (select one): Pre-Operative Evaluation - Surgery Type: Cardiac Surgery, Functional Capacity: Unknown, Surgical Risk: High Risk: Vascular, Solid Organ Transplant Surgery: No History of CABG (select one): No Diabetes (select one): No Anginal Classification (CCS) within 2 weeks (select one): CCS III - Symptoms with everyday living activities, i.e. moderate limitation Anti-anginal Meds within 2 weeks (select all that apply): Yes: Beta Blockers and Calcium Channel Blockers Stress or Imaging studies performed (select one), risk/extent of ischemia (select one if applicable): No, Unavailable Patient undergoing renal transplant or percutaneous valve procedure (select one): No NYHA Classification: N/A, no history of HF Frailty Score :3 [place] Protocol: No H+ P copied to chart from Dr. Bragg progress note dated 06/01/[address] Timmons. Office Visit 06/01/2024 [facility] - Tesha Bragg MD Cardiology Aneurysm of ascending aorta without rupture (HCC) Dx New Patient Pre-op Exam; Referred by Mars Solano DO Reason for Visit Progress Notes Aashish Bragg MD (Physician) Cardiology Expand All [facility] All [facility] Cardiology [facility] - [place] [address] [facility] [address] Dept: [phone] Dept Visit type: New : 1960 DATE of SERVICE: 06/01/2024 Chief Complaint: Chief Complaint Patient presents with New Patient Pre-op Exam History of Present Illness: Erickson Riggs is a 64 y.o. male who presents today for cardiac evaluation in preparation to possible repair of an ascending aortic aneurysm measuring 5.2 cm. Patient was referred by Dr. Solano, [facility],for cardiac evaluation and to arrange right and left heart catheterization. 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 He is a former smoker. He has chronic chest pain which is anterior, at the lateral aspect of his chest and posterior and almost always present. Family history is positive for heart disease in his mother. He was seen by Dr. Solano 05/18/2024. He is approaching the need to have his aneurysm repaired, therefore Dr. Solano recommended to proceed with right and left heart catheterization and repeat echocardiogram. Past Medical History: Medical History Past Medical History: Diagnosis Date Alcohol abuse Aneurysm (HCC) Atrial fibrillation (HCC) CVA (cerebral vascular accident) (HCC) Hypertension Nicotine abuse SONIA (obstructive sleep apnea) Paroxysmal supraventricular tachycardia (HCC) Past Surgical History Surgical History Past Surgical History: Procedure Laterality Date CHOLECYSTECTOMY 2015 NEPHRECTOMY Right 1999 Family History Family History Family History Problem Relation Name Age of Onset Coronary artery disease Mother Heart attack Mother Coronary artery disease Father Heart attack Father Social History Social History Social History Tobacco Use Smoking status: Former Types: Cigarettes Start date: 2022 Quit date: 2004 Years since quittin.1 Smokeless tobacco: Never Substance Use Topics Alcohol use: Not Currently Comment: holidays/special occasions Drug use: Yes Frequency: 14.0 times per week Types: Marijuana Allergies: Allergies Allergies Allergen Reactions Penicillins Hives Other Reaction(s): GI upset, hives Hives or GI upset-patient unsure Aspirin Hives Other Reaction(s): GI Upset, GI upset, hives Medications: Current Medications Current Outpatient Medications: amLODIPine (Norvasc) 10 MG tablet, Take 10 mg by mouth daily., Disp: , Rfl: doxazosin (Cardura) 2 MG tablet, Take 1 tablet by mouth Nightly., Disp: , Rfl: metoprolol tartrate (Lopressor) 25 MG tablet, Take 25 mg by mouth 2 times daily., Disp: , Rfl: Calcium Carb-Cholecalciferol (CALCIUM CARBONATE-VITAMIN D3 PO), Take 1 tablet by mouth daily., Disp: , Rfl: cinnamon 500 MG capsule, Take 1,000 mg by mouth daily., Disp: , Rfl: TURMERIC PO, Take 1,000 mg by mouth daily., Disp: , Rfl: Review of Systems: Review of Systems Constitutional: Positive for fatigue. Respiratory: Positive for chest tightness. Negative for shortness of breath. Cardiovascular: Positive for chest pain (Since NEPHRECTOMY) and palpitations. Neurological: Negative for dizziness, syncope and light-headedness. Physical Examination: Vitals: Vitals Vitals: 06/01/24 1101 06/01/24 1118 BP: (S) (!) 140/78 (!) 152/88 BP Location: Left arm Left arm Patient Position: Sitting Sitting BP Cuff Size: Large adult Pulse: 68 SpO2: 97% Weight: (!) 337 lb 9.6 oz (153 kg) Height: 6' (1.829 m) Body mass index is 45.79 kg/m . Physical Exam Constitutional: Appearance: He is morbidly obese. HENT: Head: Normocephalic and atraumatic. Nose: Nose normal. Mouth/Throat: Dentition: Abnormal dentition. Eyes: Extraocular Movements: Extraocular movements intact. Conjunctiva/sclera: Conjunctivae normal. Neck: Vascular: No carotid bruit. Cardiovascular: Rate and Rhythm: Normal rate and regular rhythm. Pulses: Normal pulses. Heart sounds: Normal heart sounds. No murmur heard. No gallop. Pulmonary: Effort: Pulmonary effort is normal. Breath sounds: Normal breath sounds. No wheezing. Abdominal: General: Bowel sounds are normal. Palpations: Abdomen is soft. Musculoskeletal: Right lower leg: No edema. Left lower leg: No edema. Skin: General: Skin is warm and dry. Neurological: General: No focal deficit present. Mental Status: He is alert and oriented to person, place, and time. Psychiatric: Mood and Affect: Mood normal. Behavior: Behavior normal. Laboratory Tests: No results found for: "WBC", "HGB", "HCT", "MCV", "PLT" No results found for: "GLUCOSE", "CALCIUM", "NA", "K", "CO2", "CL", "BUN", CREATININE No results found for: "NA", "K", "CL", "CO2", "BUN", "CREATININE", "GLUCOSE", "CALCIUM", "PROT", "BILITOT", "ALKPHOS", "AST", "ALT" No results found for: "CREATININE" No results found for: "CHLPL", "CHOL" No results found for: "TRIG" No results found for: "HDL" No results found for: "LDLCALC" No results found for: "BNP" Cardiac Tests: EC06/01/24 Assessment and Plan: 1. Aneurysm of ascending aorta without rupture (HCC) Erickson Riggs has a 5.2 cm ascending aortic aneurysm. He is approaching a point where surgery is necessary as the risk for rupture is significantly increased. Therefore, as recommended by cardiothoracic surgery arrangements for right and left heart catheterization as well as an echocardiogram willbe made. Procedure, risks, benefits, alternatives were reviewed with the patient. The patient unders tands, accepts and wishes to proceed. If scheduling and coordinating the echocardiogram with the cardiac catheterization is challenging patient may go ahead and get the echocardiogram done in [facility] to proximity of the lab. In that case we will request to have a copy of the images on disc. The patient will follow-up with Dr. Solano. I reviewed my assessment and plan with Erickson Riggs . All questions were answered. NOTE: This report was transcribed using voice recognition software. Every effort was made to ensureaccuracy; however, inadvertent computerized linter drier operator errors may be present. Cosigned by Joe Timmons MD at 06/03/2024 6:50 PM EST [employer] Work Phone: [phone] History and physical note* GARY Briseno CNP - 06/03/2024 3:27 PM EST Images from the original note were not included. Addendum: Pre-op R/LHC for Ascending Aortic Aneurysm repair by Dr. Solano. NOTED TO HAVE ALLERGY TO ASA- HIVES, GI UPSET. Coronary Appropriate Use Criteria Coronary Presentation (select one): Pre-Operative Evaluation - Surgery Type: Cardiac Surgery, Functional Capacity: Unknown, Surgical Risk: High Risk: Vascular, Solid Organ Transplant Surgery: No History of CABG (select one): No Diabetes (select one): No Anginal Classification (CCS) within 2 weeks (select one): CCS III - Symptoms with everyday living activities, i.e. moderate limitation Anti-anginal Meds within 2 weeks (select all that apply): Yes: Beta Blockers and Calcium Channel Blockers Stress or Imaging studies performed (select one), risk/extent of ischemia (select one if applicable): No, Unavailable Patient undergoing renal transplant or percutaneous valve procedure (select one): No NYHA Classification: N/A, no history of HF Frailty Score :3 [place] Protocol: No H+ P copied to chart from Dr. Bragg progress note dated 06/01/[address] Timmons. Office Visit 06/01/2024 [facility] Aashish Bragg MD Cardiology Aneurysm of ascending aorta without rupture (HCC) Dx New Patient Pre-op Exam; Referred by Mars Solano DO Reason for Visit Progress Notes Aashish Bragg MD (Physician) Cardiology Expand All Collapse [facility] Cardiology [facility] CARDIOLOG[facility] - [place] [address] [facility] [address] Dept: [phone] Dept Visit type: New : 1960 DATE of SERVICE: 06/01/2024 Chief Complaint: Chief Complaint Patient presents with New Patient Pre-op Exam History of Present Illness: Erickson Riggs is a 64 y.o. male who presents today for cardiac evaluation in preparation to possible repair of an ascending aortic aneurysm measuring 5.2 cm. Patient was referred by Dr. Solano, NIKKO,for cardiac evaluation and to arrange right and left heart catheterization. 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 He is a former smoker. He has chronic chest pain which is anterior, at the lateral aspect of his chest and posterior and almost always present. Family history is positive for heart disease in his mother. He was seen by Dr. Solano 05/18/2024. He is approaching the need to have his aneurysm repaired, therefore Dr. Solano recommended to proceed with right and left heart catheterization and repeat echocardiogram. Past Medical History: Medical History Past Medical History: Diagnosis Date Alcohol abuse Aneurysm (HCC) Atrial fibrillation (HCC) CVA (cerebral vascular accident) (HCC) Hypertension Nicotine abuse SONIA (obstructive sleep apnea) Paroxysmal supraventricular tachycardia (HCC) Past Surgical History Surgical History Past Surgical History: Procedure Laterality Date CHOLECYSTECTOMY 2015 NEPHRECTOMY Right 1998 Family History Family History Family History Problem Relation Name Age of Onset Coronary artery disease Mother Heart attack Mother Coronary artery disease Father Heart attack Father Social History Social History Social History Tobacco Use Smoking status: Former Types: Cigarettes Start date: 2022 Quit date: 2004 Years since quittin.1 Smokeless tobacco: Never Substance Use Topics Alcohol use: Not Currently Comment: holidays/special occasions Drug use: Yes Frequency: 14.0 times per week Types: Marijuana Allergies: Allergies Allergies Allergen Reactions Penicillins Hives Other Reaction(s): GI upset, hives Hives or GI upset-patient unsure Aspirin Hives Other Reaction(s): GI Upset, GI upset, hives Medications: Current Medications Current Outpatient Medications: amLODIPine (Norvasc) 10 MG tablet, Take 10 mg by mouth daily., Disp: , Rfl: doxazosin (Cardura) 2 MG tablet, Take 1 tablet by mouth Nightly., Disp: , Rfl: metoprolol tartrate (Lopressor) 25 MG tablet, Take 25 mg by mouth 2 times daily., Disp: , Rfl: Calcium Carb-Cholecalciferol (CALCIUM CARBONATE-VITAMIN D3 PO), Take 1 tablet by mouth daily., Disp: , Rfl: cinnamon 500 MG capsule, Take 1,000 mg by mouth daily., Disp: , Rfl: TURMERIC PO, Take 1,000 mg by mouth daily., Disp: , Rfl: Review of Systems: Review of Systems Constitutional: Positive for fatigue. Respiratory: Positive for chest tightness. Negative for shortness of breath. Cardiovascular: Positive for chest pain (Since NEPHRECTOMY) and palpitations. Neurological: Negative for dizziness, syncope and light-headedness. Physical Examination: Vitals: Vitals Vitals: 06/01/24 1101 06/01/24 1118 BP: (S) (!) 140/78 (!) 152/88 BP Location: Left arm Left arm Patient Position: Sitting Sitting BP Cuff Size: Large adult Pulse: 68 SpO2: 97% Weight: (!) 337 lb 9.6 oz (153 kg) Height: 6' (1.829 m) Body mass index is 45.79 kg/m . Physical Exam Constitutional: Appearance: He is morbidly obese. HENT: Head: Normocephalic and atraumatic. Nose: Nose normal. Mouth/Throat: Dentition: Abnormal dentition. Eyes: Extraocular Movements: Extraocular movements intact. Conjunctiva/sclera: Conjunctivae normal. Neck: Vascular: No carotid bruit. Cardiovascular: Rate and Rhythm: Normal rate and regular rhythm. Pulses: Normal pulses. Heart sounds: Normal heart sounds. No murmur heard. No gallop. Pulmonary: Effort: Pulmonary effort is normal. Breath sounds: Normal breath sounds. No wheezing. Abdominal: General: Bowel sounds are normal. Palpations: Abdomen is soft. Musculoskeletal: Right lower leg: No edema. Left lower leg: No edema. Skin: General: Skin is warm and dry. Neurological: General: No focal deficit present. Mental Status: He is alert and oriented to person, place, and time. Psychiatric: Mood and Affect: Mood normal. Behavior: Behavior normal. Laboratory Tests: No results found for: "WBC", "HGB", "HCT", "MCV", "PLT" No results found for: "GLUCOSE", "CALCIUM", "NA", "K", "CO2", "CL", "BUN", CREATININE No results found for: "NA", "K", "CL", "CO2", "BUN", "CREATININE", "GLUCOSE", "CALCIUM", "PROT", "BILITOT", "ALKPHOS", "AST", "ALT" No results found for: "CREATININE" No results found for: "CHLPL", "CHOL" No results found for: "TRIG" No results found for: "HDL" No results found for: "LDLCALC" No results found for: "BNP" Cardiac Tests: EC06/01/24 Assessment and Plan: 1. Aneurysm of ascending aorta without rupture (HCC) Erickson Riggs has a 5.2 cm ascending aortic aneurysm. He is approaching a point where surgery is necessary as the risk for rupture is significantly increased. Therefore, as recommended by cardiothoracic surgery arrangements for right and left heart catheterization as well as an echocardiogram willbe made. Procedure, risks, benefits, alternatives were reviewed with the patient. The patient unders tands, accepts and wishes to proceed. If scheduling and coordinating the echocardiogram with the cardiac catheterization is challenging patient may go ahead and get the echocardiogram [facility] in [facility] to proximity of the lab. In that case we will request to have a copy of the images on disc. The patient will follow-up with Dr. Solano. I reviewed my assessment and plan with Erickson Riggs . All questions were answered. NOTE: This report was transcribed using voice recognition software. Every effort was made to ensureaccuracy; however, inadvertent computerized linter drier operator errors may be present. Cosigned by Joe Timmons MD at 06/03/2024 6:50 PM EST documented in this [facility]03-07-2025 [facility] 06-03-2024 [facility]03-05-2025 Telephone encounter Note* Telephone Encounter - Tracie Munroe - 06/01/2024 12:39 PM EST No prior auth needed for R & LH ([id number]) -per Medicare A & B. Okay to schedule. [facility] you [id number] Miscellaneous Notes* Telephone Encounter - Tracie Munroe - 06/01/2024 12:39 PM EST No prior auth needed for R & LH ([id number]) -per Medicare A & B. Okay to schedule. Thank you * Telephone Encounter - Tracie Munroe - 06/01/2024 11:45 AM EST I will work on this. Thank you * Telephone Encounter - Sarah Johnson - 06/01/2024 11:35 AM EST Patient needs a right and left heart cath prior auth needed please and thank you documented in this [facility]03-05-2025 Telephone encounter Note* Telephone Encounter - Debra Moreno RN - 06/01/2024 12:11 PM EST You are scheduled for L/RHC with Dr Timmons on 06/08/24 at 10am Report to [facility] by 8:30am to check in Park in the [address] Deck, or use [employer] parking at [address]. Enter at [address] and proceed to the North or East elevators, take them to the 1st floor, and follow the signs to the [facility]. You will need a designated ambulance driver paramedic for the day of your procedure to take you home No driving for 24-72 hours post procedure Nothing to eat or drink after midnight Please take your am medications with sips of water prior to leaving for the hospital. Get blood work done today -Both written and verbal instructions given in office on 06/01/24. Pt verbalized understanding and knows to call the office with questions or concerns. [id number] NoteDx: Aneurysm of ascending aorta without rupture Procedure: L/RHC Date/Time: 06/08/24 at 10am Surgeon: Bhavin Location: [facility] Admission: OUTPATIENT CATH scheduled, No auth required Medicare primary, added to [facility]03-05-2025 Telephone encounter Note* Telephone Encounter - Kaitlyn Garza - 06/01/2024 11:55 AM EST Dx: Aneurysm of ascending aorta without rupture Procedure: L/RHC Date/Time: 06/08/24 at 10am Surgeon: Bhavin Location: [facility] Admission: OUTPATIENT CATH scheduled, No auth required Medicare primary, added to [place] calendar [facility] [id number] Telephone encounter Note* Telephone Encounter - Tracie Munroe - 06/01/2024 11:45 AM EST I will work on this. Thank you [facility] [id number] Telephone encounter Note* Telephone Encounter - Sarah Johnson - 06/01/2024 11:35 AM EST Patient needs a right and left heart cath prior auth needed please and thank you [facility] [id number] History of Present illness Narrative* Aashish Bragg MD - 06/01/2024 11:30 AM EST [facility] Cardiology [facility] CARDIOLOGY - [address] [address] Dept: [phone] Dept Visit type: New : 1960 DATE of SERVICE: 06/01/2024 Chief Complaint: Chief Complaint Patient presents with New Patient Pre-op Exam History of Present Illness: Erickson Riggs is a 64 y.o. male who presents today for cardiac evaluation in preparation to possible repair of an ascending aortic aneurysm measuring 5.2 cm. Patient was referred by Dr. Solano, CTS,for cardiac evaluation and to arrange right and left heart catheterization. 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 He is a former smoker. He has chronic chest pain which is anterior, at the lateral aspect of his chest and posterior and almost always present. Family history is positive for heart disease in his mother. He was seen by Dr. Solano 05/18/2024. He is approaching the need to have his aneurysm repaired, therefore Dr. Solano recommended to proceed with right and left heart catheterization and repeat echocardiogram. Past Medical History: Past Medical History: Diagnosis Date Alcohol abuse Aneurysm (HCC) Atrial fibrillation (HCC) CVA (cerebral vascular accident) (HCC) Hypertension Nicotine abuse SONIA (obstructive sleep apnea) Paroxysmal supraventricular tachycardia (HCC) Past Surgical History Past Surgical History: Procedure Laterality Date CHOLECYSTECTOMY 2015 NEPHRECTOMY Right 1999 Family History Family History Problem Relation Name Age of Onset Coronary artery disease Mother Heart attack Mother Coronary artery disease Father Heart attack Father Social History Social History Tobacco Use Smoking status: Former Types: Cigarettes Start date: 2022 Quit date: 2004 Years since quittin.1 Smokeless tobacco: Never Substance Use Topics Alcohol use: Not Currently Comment: holidays/special occasions Drug use: Yes Frequency: 14.0 times per week Types: Marijuana Allergies: Allergies Allergen Reactions Penicillins Hives Other Reaction(s): GI upset, hives Hives or GI upset-patient unsure Aspirin Hives Other Reaction(s): GI Upset, GI upset, hives Medications: Current Outpatient Medications: amLODIPine (Norvasc) 10 MG tablet, Take 10 mg by mouth daily., Disp: , Rfl: doxazosin (Cardura) 2 MG tablet, Take 1 tablet by mouth Nightly., Disp: , Rfl: metoprolol tartrate (Lopressor) 25 MG tablet, Take 25 mg by mouth 2 times daily., Disp: , Rfl: Calcium Carb-Cholecalciferol (CALCIUM CARBONATE-VITAMIN D3 PO), Take 1 tablet by mouth daily., Disp: , Rfl: cinnamon 500 MG capsule, Take 1,000 mg by mouth daily., Disp: , Rfl: TURMERIC PO, Take 1,000 mg by mouth daily., Disp: , Rfl: Review of Systems: Review of Systems Constitutional: Positive for fatigue. Respiratory: Positive for chest tightness. Negative for shortness of breath. Cardiovascular: Positive for chest pain (Since NEPHRECTOMY) and palpitations. Neurological: Negative for dizziness, syncope and light-headedness. Physical Examination: Vitals: Vitals: 06/01/24 1101 06/01/24 1118 BP: (S) (!) 140/78 (!) 152/88 BP Location: Left arm Left arm Patient Position: Sitting Sitting BP Cuff Size: Large adult Pulse: 68 SpO2: 97% Weight: (!) 337 lb 9.6 oz (153 kg) Height: 6' (1.829 m) Body mass index is 45.79 kg/m . Physical Exam Constitutional: Appearance: He is morbidly obese. HENT: Head: Normocephalic and atraumatic. Nose: Nose normal. Mouth/Throat: Dentition: Abnormal dentition. Eyes: Extraocular Movements: Extraocular movements intact. Conjunctiva/sclera: Conjunctivae normal. Neck: Vascular: No carotid bruit. Cardiovascular: Rate and Rhythm: Normal rate and regular rhythm. Pulses: Normal pulses. Heart sounds: Normal heart sounds. No murmur heard. No gallop. Pulmonary: Effort: Pulmonary effort is normal. Breath sounds: Normal breath sounds. No wheezing. Abdominal: General: Bowel sounds are normal. Palpations: Abdomen is soft. Musculoskeletal: Right lower leg: No edema. Left lower leg: No edema. Skin: General: Skin is warm and dry. Neurological: General: No focal deficit present. Mental Status: He is alert and oriented to person, place, and time. Psychiatric: Mood and Affect: Mood normal. Behavior: Behavior normal. Laboratory Tests: No results found for: "WBC", "HGB", "HCT", "MCV", "PLT" No results found for: "GLUCOSE", "CALCIUM", "NA", "K", "CO2", "CL", "BUN", CREATININE No results found for: "NA", "K", "CL", "CO2", "BUN", "CREATININE", "GLUCOSE", "CALCIUM", "PROT", "BILITOT", "ALKPHOS", "AST", "ALT" No results found for: "CREATININE" No results found for: "CHLPL", "CHOL" No results found for: "TRIG" No results found for: "HDL" No results found for: "LDLCALC" No results found for: "BNP" Cardiac Tests: EC06/01/24 Assessment and Plan: 1. Aneurysm of ascending aorta without rupture (HCC) Erickson Riggs has a 5.2 cm ascending aortic aneurysm. He is approaching a point where surgery is necessary as the risk for rupture is significantly increased. Therefore, as recommended by cardiothoracic surgery arrangements for right and left heart catheterization as well as an echocardiogram willbe made. Procedure, risks, benefits, alternatives were reviewed with the patient. The patient unders tands, accepts and wishes to proceed. If scheduling and coordinating the echocardiogram with the cardiac catheterization is challenging patient [place] go [place]. In that case we will request to have a copy of the images on disc. The patient will follow-up with Dr. Solano. I reviewed my assessment and plan with Erickson Riggs . All questions were answered. NOTE: This report was transcribed using voice recognition software. Every effort was made to ensureaccuracy; however, inadvertent computerized linter drier operator errors may be present. documented in this [facility]03-05-2025 Miscellaneous Notes* Addendum Note - Linnette Gonsalez - 06/01/2024 11:30 AM ESTAddended by: LINNETTE GONSALEZ on: 06/01/2024 12:18 PM Modules accepted: Orders documented in this [facility]03-05-2025 Note* Addendum Note - Linnette Gonsalez - 06/01/2024 11:30 AM ESTAddended by: LINNETTE GONSALEZ on: 06/01/2024 12:18 PM Modules accepted: Orders [id number] Note* Addendum Note - Linnette Gonsalez - 06/01/2024 11:30 AM ESTAddended by: LINNETTE GONSALEZ on: 06/01/2024 12:18 PM Modules accepted: Orders [id number] Note* Addendum Note - Linnette Gonsalez - 06/01/2024 11:30 AM ESTAddended by: LINNETTE GONSALEZ on: 06/01/2024 12:18 PM Modules accepted: Orders [id number] History of Present illness Narrative* Mars Solano, DO - 05/18/2024 10:30 AM EST Images from the original note were not included. [facility] CARDIOVASCULAR [facility] THORACIC SURGERY [address] [facility] [address] Dept: [phone] Dept Loc: [phone] Visit type: New Reason for Visit: Ascending aortic aneurysm Assessment: 1. Aneurysm of ascending aorta without rupture (HCC) 2. Chest pain, unspecified type 3. Morbid obesity (HCC) 4. SONIA (obstructive sleep apnea) 5. Primary hypertension 6. Hx of arterial ischemic stroke Recommendations: He is nearing the need for his aneurysm repair, though he likely has other problems causing him symptoms. This needs workup before proceeding with any surgical treatment. He first needs right/left heart catheterization to assess his chest pain. Echocardiogram needs to be done for ventricular function assessment. We will also get PFTs. Once this is complete he will return to the office for discussion about how to proceed. His functional status is quite poor, which makes him a less than ideal surgical candidate, unfortunately. History of Present Illness Erickson Riggs is a 64 y.o. male referred by RUBEN Gaston for ascending aortic aneurysm. Per note, pt has history of HTN, aortic aneurysm, afib, cardiomyopathy, SONIA, and solitary kidney. Pt follows with Cardiology who ordered an annual CTA chest which was completed on 04/26/24 and showed ascending thoracic aorta measures up to 5.2 cm. Previous CTA chest completed on 04/03/23 showed dilated ascending aorta measuring 4.7 cm. Pt is a former smoker. Quit in 2004. Pt is here now for an evaluation. He complains mostly of chest pressure which is always present. Hestates he gets short of breath with activity but his chest discomfort does not worsen. Overall he is mostly sedentary as even washing the dishes wears him out. He gets mild leg edema and gets lightheaded at times but has not had syncope. He does not sleep lying down mainly due to back pain. He is supposed to wear a CPAP but does not. He has not worked in about 12 years. He smokes marijuana at least daily but does not use other drugs. On my view of his CT scan his aorta is about 5.1 cm in diameter. The aorta at the innominate takeoff is about 4.1 cm. The root is about 5 cm. There is distal left main and ostial LAD calcium present. Past Medical History Past Medical History: Diagnosis Date Alcohol abuse Aneurysm (HCC) Atrial fibrillation (HCC) CVA (cerebral vascular accident) (HCC) Hypertension Nicotine abuse SONIA (obstructive sleep apnea) Paroxysmal supraventricular tachycardia (HCC) Past Surgical History Past Surgical History: Procedure Laterality Date CHOLECYSTECTOMY 2015 NEPHRECTOMY Right 1999 Family History Family History Problem Relation Name Age of Onset Coronary artery disease Mother Heart attack Mother Coronary artery disease Father Heart attack Father Social History Marital status: , has 3 children. 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 [place] status: Never Served Social History Tobacco Use Smoking status: Former Types: Cigarettes Start date: 2022 Quit date: 2004 Years since quittin.1 Smokeless tobacco: Never Substance Use Topics Alcohol use: Not Currently Comment: holidays/special occasions Drug use: Yes Frequency: 14.0 times per week Types: Marijuana Allergies Allergies Allergen Reactions Penicillins Hives Other Reaction(s): GI upset, hives Hives or GI upset-patient unsure Aspirin Hives Other Reaction(s): GI Upset, GI upset, hives Medications Current Outpatient Medications: amLODIPine (Norvasc) 10 MG tablet, Take 10 mg by mouth daily., Disp: , Rfl: doxazosin (Cardura) 2 MG tablet, Take 1 tablet by mouth Nightly., Disp: , Rfl: metoprolol tartrate (Lopressor) 25 MG tablet, Take 25 mg by mouth 2 times daily., Disp: , Rfl: Calcium Carb-Cholecalciferol (CALCIUM CARBONATE-VITAMIN D3 PO), Take 1 tablet by mouth daily. (Patient not taking: Reported on 05/18/2024), Disp: , Rfl: cinnamon 500 MG capsule, Take 1,000 mg by mouth daily. (Patient not taking: Reported on 05/18/2024),Disp: , Rfl: TURMERIC PO, Take 1,000 mg by mouth daily. (Patient not taking: Reported on 05/18/2024), Disp: , Rfl: Review of Systems Review of Systems Constitutional: Positive for fatigue. Respiratory: Positive for chest tightness (dull pressure) and shortness of breath. All other systems reviewed and are negative. Physical Exam Vitals: BP (!) 161/86 (BP Location: Left arm, Patient Position: Sitting, BP Cuff Size: Large adult) Pulse61 Ht 6' (1.829 m) Wt (!) 330 lb (150 kg) BMI 44.76 kg/m Constitutional: General: Not in acute distress. Appearance: Normal appearance. Not toxic-appearing. Ear, nose, mouth: Bilateral external ear and nose normal. Nose: Nose normal. Mouth: Appearance normal, no bleeding, moist mucus membranes Eyes: General: No scleral icterus. No discharge from bilateral eyes Extraocular Movements: Extraocular movements intact. Pupils equal and reactive bilaterally Cardiovascular: Heart: Regular rhythm. Normal heart sounds. Vascular: No carotid bruit. Edema: mild edema in bilateral lower extremities Pulmonary: Effort: Pulmonary effort is normal. No respiratory distress. Breath sounds: Normal breath sounds. No wheezing. Chest wall: No tenderness. Abdominal: Appearance: Not distended Palpations: There is no abdominal tenderness, no guarding. Musculoskeletal: Bilateral upper and lower extremities: Normal range of motion, no deformity Head: Normocephalic and atraumatic. Neck: Normal range of motion and neck supple. No muscular tenderness. Lymphadenopathy: Cervical: No cervical adenopathy. Skin: General: Skin is warm and dry. Coloration: Skin is not jaundiced. Neurological: General: No focal deficit present. Cranial Nerves: No obvious cranial nerve deficit. Psychiatric: Mood and Affect: Mood normal. Thought Content: Thought content normal. Patient has good judgement and insight Mental Status: Alert and oriented to place, person, and time. Labs No results found for: "WBC", "HGB", "PLT", "NA", "K", "CREATININE" Imaging CTA chest 04/26/24 CTA Chest 04/03/23 TTE 05/29/22 CONCLUSIONS: - Exam indication: Ascending aortic aneurysm - The left ventricle is small. There is mild concentric left ventricular hypertrophy. Left ventricular systolic function is normal. EF = 67 5% (2D 4-ch.) Indeterminate left ventricular diastolic dysfunction. - The right ventricle is dilated. Right ventricular systolic function is normal. - The right atrial cavity is dilated. - There are no significant valvular abnormalities. - The visualized aorta is dilated with a maximal dimension of 5.1 cm. - Ascending aortic aneurysm measuring ~5.1 cm. Patient sent to [place] [facility] d/t possible dissection (clips [id number]) and chest pain. - The patient has not had a prior CC echocardiographic exam for comparison. TTE 10/11/20 Patient Care Team: PCP: Chapis Dickens APRN-PLUMBING MANAGER Cardiology: RUBEN Gaston DO [facility] Cardiothoracic Surgery documented in this [facility]02-05[facility] Instructions* Patient Instructions* Chapis Dickens APRN.PLUMBING MANAGER - 05/04/2024 5:17 PM EST Screening schedule The following prevention plan is recommended: Abdominal Aortic Aneurysm Screening Never done WHAT YOU CAN DO TO PREVENT FALLS Many falls can be prevented. By making some changes, you can lower your chances of falling. Four things YOU can do to prevent falls for you* and your caregiver 1. Begin a regular exercise program Exercise is one of the most important ways to lower your chances of falling. It makes you stronger and helps you feel better. Exercises that improve balance and coordination (like Shaquille Chi) are the most helpful. Lack of exercise leads to weakness and increases your chances of falling. Ask your doctor or health care provider about the best type of exercise program for you. 2. Have your health care provider review your medicines Have your doctor or pharmacist review all the medicines you take, even [id number] medicines. As you get older, the way medicines work in your body can change. Some medicines, or combinations of medicines, can make you sleepy or dizzy andcan cause you to fall. 3. Have your vision checked Have your eyes checked by an eye doctor at least once a year. You may be wearing the wrong glasses or have a condition like glaucoma or cataracts that limits your vision. Poor vision can increase your chances of falling. 4. Make your home safer About half of all falls happen at home. To make your home safer: Remove things you can trip over (like papers, books, clothes, and shoes) from stairs and places where you walk. Remove small throw rugs or use double-sided tape to keep the rugs from slipping. Keep items you use often in cabinets you can reach easily without using a step stool. Have grab bars put in next to your toilet and in the tub or shower. Use non-slip mats in the bathtub and on shower floors. Improve the lighting in your home. As you get older, you need brighter lights to see well. Hang light-weight curtains or shades to reduce glare. Have handrails and lights put in on all staircases. Wear shoes both inside and outside the house. Avoid going barefoot or wearing slippers. For more information, contact: Centers for Disease Control and Prevention www.cdc.gov/injury * This information may not apply if you have certain medical conditions. documented in this encounterOhio[facility] Hospital02-[facility]-2025 NoteHNO ID: [id number] Author: CHAPIS DICKENS APRN.CNP Service: ? Author Type: Nurse Practitioner Type: Progress Notes Filed: 05/04/2024 17:48 Note Text: Erickson Riggs is a 64 year old male here for a Medicare wellness visit. Medicare Health Risk Assessment General Health Fair Exercise: Minutes/Day 0 min Exercise: Days/Week 0 days Alcohol: Daily Use Never Alcohol: Drinks/Day Patient does not drink Alcohol: 6 or more drinks Never Feel off balance No Concerns: Teeth/Dentures No Concerns: Sexual function No Troubled by feelings None of the above Frequency: Eating healthy diet More than half the days ADLs requiring help None of the above Safety precautions in home/vehicle Yes Smoke, vape, chews tobacco Yes, but I'm not ready to quit (marijuana, quit tobacco cigarettes a few years ago) Difficulty hearing Yes Difficulty seeing No Current Providers Specialists: I have reviewed specialist-related care of the patient in the medical record. Current care team: Patient Care Team: Mundo Plasencia MD as PCP - General (Internal Medicine) Chapis Dickens APRN.CNP as Clinical Dietetic Technician (Internal Medicine) [facility] Medical/Family history review Reviewed and updated problem list, medical/surgical/family/social history, medications, and allergies. Opioid use review Opioid Medications (last 90 days) No data to display Anxiety/Depression screening PHQ-2 Score: 0 (Lower risk for depression) VIANCA-2 Score: 0 (Lower risk for anxiety) Recommendation: no further intervention at this time Cognitive screening Mini Cog Score: 2 Cognitive screening reviewed and Recommended referral for further evaluation (score 0-2). Patient declined. Functional Observation Was the patient's Timed Up AND Go test unsteady or >= 12 seconds? No Advance Care Planning Patient was not able to provide a surrogate decision maker or written advance directives Measurements BP 134/72 Pulse 66 Resp 12 Ht 183 cm (6' 0.05") Wt (!) 153.2 kg (337 lb 11.9 oz) SpO2 98% BMI 45.75 kg/m? Vision Screening: Declines visual acuity screen Assessment/Plan Medicare annual wellness visit, subsequent (Z00.00) - Counseled on healthy diet and regular exercise - Fall avoidance information provided - Personalized prevention plan provided - Discussed need for and benefit of weight loss. BMI 45.75 kg/(m2) - Smoking cessation encouraged; discussed risks to health and quitting strategies. Patient is not ready to quit Additional Concerns The following concerns were also discussed with the patient: He has a history of Afib, cardiomyopathy and ascending aortic aneurysm for which he sees cardiology. Denies medication changes recently. Patient reports he will need "heart surgery" soon but unclear on what type of surgery. HTN-Medication changes:No Taking all medications as prescribed: Yes Side effects: No Home BP's: No Last 3 Encounter BP Readings: Date: BP: 05/04/2024 134/72 07/27/2023 128/78 12/24/2022 137/81 BPH: taking Cardura, denies side effects. Denies LUTS COPD. Current symptoms: chronic cough and wheezing occasionally. Symptoms are not limiting daily activities or exercise. Treatment: none Crisis Manager: none He smokes marijuana. Quit tobacco smoke a few years ago No recent exacerbations. No recent ED visits or hospitalizations in the past year. Lung nodule: incidental finding on CTA of the chest in 2021. Was not seen on repeat CTA last month. PHYSICAL EXAM BP 134/72 Pulse 66 Resp 12 Ht 183 cm (6' 0.05") Wt (!) 153.2 kg (337 lb 11.9 oz) SpO2 98% BMI 45.75 kg/m? GENERAL: well appearing, alert, in no acute distress CARDIOVASCULAR: regular rate and rhythm. No murmur, rubs or gallops. PULMONARY: clear to auscultation, no wheezing, rhonchi, or crackles ASSESSMENT/PLAN: 1. Medicare annual wellness visit, subsequent - ICD9: V70.0, ICD10: Z00.00 (primary diagnosis) See medicare wellness plan 2. Nodule of left lung - ICD9: 793.11, ICD10: R91.1 Not seen on most recent CTA last month 3. Chronic bronchitis, obstructive (HCC) - ICD9: 491.20, ICD10: J44.89 Stable 4. Paroxysmal atrial fibrillation (HCC) - ICD9: 427.31, ICD10: I48.0 Medications and monitoring per cardiology 5. Ascending aorta dilation (HCC) - ICD9: 447.71, ICD10: I77.810 Medications and monitoring per cardiology 6. Cardiomyopathy, unspecified type (HCC) - ICD9: 425.4, ICD10: I42.9 Medications and monitoring per cardiology 7. Obesity, Class III, BMI 40-49.9 (morbid obesity) (HCC) - ICD9: 278.01, ICD10: E66.01 - Discussed need for and benefit of weight loss BMI Readings from Last 1 Encounters: 05/04/24 : 45.75 kg/m? - Begin healthy diet consisting of fruits, vegetables and lean proteins. Reduce sugary drinks of artificial juices and sodas and replace with water and low calorie Crystal Light. Healthy Snack alternatives have been discussed - Begin exercise or meaningful (more content not included)...[facility]02-05-2025 History of Present illness Narrative* Chapis Dickens, COMMERCIAL PEST CONTROL REPRESENTATIVE.PLUMBING MANAGER - 05/04/2024 5:14 PM EST Images from the original note were not included. Erickson Riggs is a 64 year old male here for a Medicare wellness visit. Medicare Health Risk Assessment General Health Fair Exercise: Minutes/Day 0 min Exercise: Days/Week 0 days Alcohol: Daily Use Never Alcohol: Drinks/Day Patient does not drink Alcohol: 6 or more drinks Never Feel off balance No Concerns: Teeth/Dentures No Concerns: Sexual function No Troubled by feelings None of the above Frequency: Eating healthy diet More than half the days ADLs requiring help None of the above Safety precautions in home/vehicle Yes Smoke, vape, chews tobacco Yes, but I'm not ready to quit (marijuana, quit tobacco cigarettes a fewyears ago) Difficulty hearing Yes Difficulty seeing No Current Providers Specialists: I have reviewed specialist-related care of the patient in the medical record. Current care team: Patient Care Team: Mundo Plasencia MD as PCP - General (Internal Medicine) Chapis Dickens, GARY.PLUMBING MANAGER as Clinical Dietetic Technician (Internal Medicine) [facility] Medical/Family history review Reviewed and updated problem list, medical/surgical/family/social history, medications, and allergies. Opioid use review Opioid Medications (last 90 days) No data to display Anxiety/Depression screening PHQ-2 Score: 0 (Lower risk for depression) VIANCA-2 Score: 0 (Lower risk for anxiety) Recommendation: no further intervention at this time Cognitive screening Mini Cog Score: 2 Cognitive screening reviewed and Recommended referral for further evaluation (score 0-2). Patient declined. Functional Observation Was the patient's Timed Up & Go test unsteady or >= 12 seconds? No Advance Care Planning Patient was not able to provide a surrogate decision maker or written advance directives Measurements BP 134/72 Pulse 66 Resp 12 Ht 183 cm (6' 0.05") Wt (!) 153.2 kg (337 lb 11.9 oz) SpO2 98% BMI 45.75 kg/m Vision Screening: Declines visual acuity screen Assessment/Plan Medicare annual wellness visit, subsequent (Z00.00) - Counseled on healthy diet and regular exercise - Fall avoidance information provided - Personalized prevention plan provided - Discussed need for and benefit of weight loss. BMI 45.75 kg/(m^2) - Smoking cessation encouraged; discussed risks to health and quitting strategies. Patient is not ready to quit Additional Concerns The following concerns were also discussed with the patient: He has a history of Afib, cardiomyopathy and ascending aortic aneurysm for which he sees cardiology. Denies medication changes recently. Patient reports he will need "heart surgery" soon but unclear on what type of surgery. HTN-Medication changes:No Taking all medications as prescribed: Yes Side effects: No Home BP's: No Last 3 Encounter BP Readings: Date: BP: 05/04/2024 134/72 07/27/2023 128/78 12/24/2022 137/81 BPH: taking Cardura, denies side effects. Denies LUTS COPD. Current symptoms: chronic cough and wheezing occasionally. Symptoms are not limiting daily activities or exercise. Treatment: none Crisis Manager: none He smokes marijuana. Quit tobacco smoke a few years ago No recent exacerbations. No recent ED visits or hospitalizations in the past year. Lung nodule: incidental finding on CTA of the chest in 2021. Was not seen on repeat CTA last month. PHYSICAL EXAM BP 134/72 Pulse 66 Resp 12 Ht 183 cm (6' 0.05") Wt (!) 153.2 kg (337 lb 11.9 oz) SpO2 98% BMI 45.75 kg/m GENERAL: well appearing, alert, in no acute distress CARDIOVASCULAR: regular rate and rhythm. No murmur, rubs or gallops. PULMONARY: clear to auscultation, no wheezing, rhonchi, or crackles ASSESSMENT/PLAN: 1. Medicare annual wellness visit, subsequent - ICD9: V70.0, ICD10: Z00.00 (primary diagnosis) See medicare wellness plan 2. Nodule of left lung - ICD9: 793.11, ICD10: R91.1 Not seen on most recent CTA last month 3. Chronic bronchitis, obstructive (HCC) - ICD9: 491.20, ICD10: J44.89 Stable 4. Paroxysmal atrial fibrillation (HCC) - ICD9: 427.31, ICD10: I48.0 Medications and monitoring per cardiology 5. Ascending aorta dilation (HCC) - ICD9: 447.71, ICD10: I77.810 Medications and monitoring per cardiology 6. Cardiomyopathy, unspecified type (HCC) - ICD9: 425.4, ICD10: I42.9 Medications and monitoring per cardiology 7. Obesity, Class III, BMI 40-49.9 (morbid obesity) (HCC) - ICD9: 278.01, ICD10: E66.01 - Discussed need for and benefit of weight loss BMI Readings from Last 1 Encounters: 05/04/24 : 45.75 kg/m - Begin healthy diet consisting of fruits, vegetables and lean proteins. Reduce sugary drinks of artificial juices and sodas and replace with water and low calorie Crystal Light. Healthy Snack alternatives have been discussed - Begin exercise or meaningful activity for 20 minutes at lest 3 times a day 8. Screening for depression - ICD9: V79.0, ICD10: Z13.31 - DEPRESSION SCREENING 9. Encounter for screening examination for other mental health and behavioral disorders - ICD9: V79.8, ICD10: Z13.39 - ANXIETY SCREENING 10. BPH with obstruction/lower urinary tract symptoms - ICD9: 600.01, 599.69, ICD10: N40.1, N13.8 Stable on Cardura 11. Primary hypertension - ICD9: 401.9, ICD10: I10 - Controlled - Continue current medications - Recommend home blood pressure monitoring, to bring results to next visit - Encouraged sodium restriction, DASH or Mediterranean diet Chapis Dickens APRN.NICOLE Medical Decision Making: Problems: Moderate: 2+ stable chronic illnesses and New problem with uncertain prognosis Data: Unique source(s) for external note(s) reviewed: 1 Unique test result(s) reviewed: 1 Risk: Moderate: Drug management Medical Decision Making Level: 4 - Moderate ; documented in this encounterOhio[facility]01-16-2025 Telephone encounter Note * Telephone Encounter - Eleonora Way LPN - 04/14/2024 11:42 AM EST Spoke with pt and information listed below given. Pt verbalizes understanding. Physical scheduled. Pt not on Medicare yet. Eleonora Way LPN [facility]01-16-2025 Miscellaneous Notes* Telephone Encounter - Eleonora Way LPN - 04/14/2024 11:42 AM EST Spoke with pt and information listed below given. Pt verbalizes understanding. Physical scheduled. Pt not on Medicare yet. Eleonora Way LPN * Telephone Encounter - Eleonora Way LPN - 04/11/2024 2:53 PM EST Attempted to reach pt by phone without success, Pt's mailbox is full. Try later. Eleonora Way LPN * Telephone Encounter - Chapis Dickens APRN.CNP - 04/08/2024 10:50 AM EST Due for follow-up Chapis Dickens APRN.NICOLE * Telephone Encounter - Petty Hodges - 04/08/2024 10:00 AM EST Prescription Refill Information The patient has been identified by name and date of : Yes Caregiver verified no other encounters exist for this prescription request: Yes Caregiver confirmed with patient/requestor that no other refills are due, in the near future, with this provider at this time: Yes The last office visit in the department: 07-27-23 Does the patient have a future office visit with this provider/department: Yes Requested Prescriptions Pending Prescriptions Disp Refills doxazosin (CARDURA) 2 mg tablet 30 tablet 11 Sig: Take 1 tablet by mouth daily at bedtime. Petty Way [facility] April 08, 2024 10:00 AM documented in this encounterOhiohealth Berger Hospital01-13-2025 Telephone encounter Note * Telephone Encounter - Eleonora Way LPN - 04/11/2024 2:53 PM EST Attempted to reach pt by phone without success, Pt's mailbox is full. Try later. Eleonora Way LPN [facility]01-10-2025 Telephone encounter Note* Telephone Encounter - Chapis Dickens APRN.CNP - 04/08/2024 10:50 AM EST Due for follow-up Chapis Dickens APRN.PLUMBING MANAGER [facility]01-10-2025 Telephone encounter Note* Telephone Encounter - Petty Hodges - 04/08/2024 10:00 AM EST Prescription Refill Information The patient has been identified by name and date of : Yes Caregiver verified no other encounters exist for this prescription request: Yes Caregiver confirmed with patient/requestor that no other refills are due, in the near future, with this provider at this time: Yes The last office visit in the department: 07-27-23 Does the patient have a future office visit with this provider/department: Yes Requested Prescriptions Pending Prescriptions Disp Refills doxazosin (CARDURA) 2 mg tablet 30 tablet 11 Sig: Take 1 tablet by mouth daily at bedtime. Petty Camara April 08, 2024 10:00 AM [facility]04-29-2024 Instructions* Patient Instructions* Mundo Plasencia MD - 07/27/2023 7:40 PM EDT DO FASTING BLOOD WORK SOON. ORDER EXPIRES IN ONE MONTH. documented in this encounterOhiohealth Berger Hospital04-29-2024 History of Present illness Narrative* Mundo Plasencia MD - 07/27/2023 7:25 PM EDT This note was created using [employer]. Subjective Erickson Riggs is a 63 year old male. 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 He tried to eat something for relief but ended up choking. EMS evaluate him and monitored him due to BP elevation. He was not brought to the ER. Symptom lasted 15 minutes, resolved, and has not recurred. His home BP machine was not accurate on comparison today. Review of Systems Constitutional: Negative for diaphoresis, fatigue, fever and unexpected weight change. HENT: Negative for sore throat and trouble swallowing. Respiratory: Negative for cough and shortness of breath. Cardiovascular: Negative for chest pain, palpitations and leg swelling. Gastrointestinal: Negative for nausea and vomiting. ACTIVE PROBLEM LIST Solitary Kidney, Acquired Tobacco [...] no IVDA Current Outpatient Medications Medication Sig doxazosin (CARDURA) 2 mg tablet Take 1 tablet by mouth daily at bedtime. CALCIUM-VITAMIN D3-MAGNESIUM ORAL Take by mouth. amLODIPine (NORVASC) 10 mg tablet Take 1 tablet by mouth once daily. metoprolol tartrate, short [...] current facility-administered medications for this visit. Objective Blood Pressure 128/78 (BP Site: Left Arm, BP Position: Sitting, BP Cuff Size: Large Adult) Pulse 68 Temperature 36.6 C (97.9 F) (Temporal) Respiration 16 Weight (Abnormal) 151 kg (333 lb) Body Mass Index 45.80 kg/m Physical Exam Constitutional: General: He is not in acute distress. Appearance: He is not ill-appearing. Cardiovascular: Rate and Rhythm: Normal rate and regular rhythm. Pulses: Normal pulses. Heart sounds: No murmur heard. No gallop. Pulmonary: Effort: No respiratory distress. Breath sounds: No wheezing or rales. Chest: Chest wall: No tenderness. Abdominal: Tenderness: There is no abdominal tenderness. Musculoskeletal: Right lower leg: No edema. Left lower leg: No edema. Neurological: Mental Status: He is alert. EKG RESULTS: normal EKG, normal sinus rhythm Assessment and Plan 1. Chest pain, unspecified type - ICD9: 786.50, ICD10: R07.9 (primary diagnosis) Atypical chest pain, symptoms are not consistent with cardiac ischemia due to accompanying GI symptoms possible etiology include GERD - Observe only. - ECG COMPLETE 2. Cardiomyopathy, unspecified type (HCC) - ICD9: 425.4, ICD10: I42.9 - Improved. Cardiology follow up was done last month. 3. Primary hypertension - ICD9: 401.9, ICD10: I10 - Controlled - Continue medications. 4. Ascending aorta dilation (HCC) - ICD9: 447.71, ICD10: I77.810 - Stable. CT [facility]. 5. Paroxysmal atrial fibrillation (HCC) - ICD9: 427.31, ICD10: I48.0 - No recurrence. 6. Chronic bronchitis, obstructive (HCC) - ICD9: 491.20, ICD10: J44.89 - Stable. Mundo Plasencia MD documented in this encounterOhiohealth Berger Hospital04-29-2024 Telephone encounter Note * Telephone Encounter - Radha Santillan LPN - 07/27/2023 10:03 AM EDT Pt calls back . Pt reports he feels fine today and was not going to schedule an appt just wanted tolet pcp know what happened. Pt wanted to see Dr. Valladares only. An appt was scheduled for 6:40 pm today. Radha Santillan LPN [facility]04-29-2024 Miscellaneous Notes* Telephone Encounter - Radha Santillan LPN - 07/27/2023 10:03 AM EDT Pt calls back . Pt reports he feels fine today and was not going to schedule an appt just wanted tolet pcp know what happened. Pt wanted to see Dr. Valladares only. An appt was scheduled for 6:40 pm today. Radha Santillan LPN * Telephone Encounter - Roula King LPN - 07/27/2023 9:39 AM EDT Patient stated that she was at [employer] yesterday and had some chest pain, left shoulder pain and elevated BP. Squad was called and he was evaluated. They advised to be seen by PCP in next few days. Patient was placed on hold then hung up. Tried to call back to make appt and is unavailable at thistime. Roula King LPN documented in this encounterOhiohealth Berger Hospital04-29-2024 Telephone encounter Note * Telephone Encounter - Roula King LPN - 07/27/2023 9:39 AM EDT Patient stated that she was at [employer] yesterday and had some chest pain, left shoulder pain and elevated BP. Squad was called and he was evaluated. They advised to be seen by PCP in next few days. Patient was placed on hold then hung up. Tried to call back to make appt and is unavailable at thistime. Roula King LPN [facility] Work Phone: [phone]) 575-342106-26-2023 Miscellaneous Notes* Telephone Encounter - Duong Mckeon Ma - 09/22/2022 4:57 PM EDT ARLINE: 08/22/2022 Last refill: 04/24/2022 QTY: 30 Refills: 5 * Telephone Encounter - Keesha Camara - 09/22/2022 1:56 PM EDT Pharmacy verified in [facility] Patient has been identified by name and [...] advise. Keesha Reeves Pss documented in this encounterOhiohealth Berger Hospital04-10-2023 Miscellaneous Notes* Telephone Encounter - Chapis Argueta APRN.CNP - 07/07/2022 2:19 PM EDT Noted Chapis Argueta APRN.CNP * Telephone Encounter - Duong Mckeon Ma - 07/04/2022 11:39 AM EDT Patient states that he just had medication adjustments last week at the [facility]. Has a follow up with [...] and up to date documented in this encounterOhiohealth Berger Hospital04-07-2023 History of Present illness Narrative* Duong Mckeon Ma - 07/04/2022 11:29 AM EDT Patient states that he just had medication adjustments last week at the [facility]. Has a follow up with [...] and up to date documented in this encounterOhiohealth Berger Hospital01-26-2023 Miscellaneous Notes* Result Encounter Note - Mundo Plasencia MD - 04/24/2022 11:30 AM EST Result(s) viewed by patient: Yes. Chest xray negative. documented in this encounterOhiohealth Berger Hospital01-26-2023 Progress note* Result Encounter Note - Mundo Plasencia MD - 04/24/2022 11:30 AM EST Result(s) viewed by patient: Yes. Chest xray negative. [facility] History of Present illness Narrative* Mundo Plasencia MD - 04/24/2022 10:58 AM EST This note was created using [employer]. Subjective Erickson Riggs is a 62 year old male. His [...] effects. Mundo Plasencia MD documented in this encounterOhiohealth Berger Hospital01-04-2023 Miscellaneous Notes* Telephone Encounter - Rere Chandra Pss - 04/02/2022 2:38 PM EST Patient has been identified by name and [...] advise. Rere Chandra Pss documented in this encounterOhiohealth Berger Hospital12-14-2022 History of Present illness Narrative* Chapis Argueta APRN.PLUMBING MANAGER - 03/12/2022 9:35 AM EST CC Patient presents with: 2 month follow up - blood pressure: Lisinopril causing runny nose HPI Erickson Riggs is a 62 year old male who [...] 02/2011 Ghazala DDD (degenerative disc disease), lumbar 1999 Gout [...] other (cervical/uterine cancer) Mother Heart Father d/t CT in late 70's Diabetes Sister Heart Failure [...] plan Chapis Argueta APRN.CNP documented in this encounterOhiohealth Berger [facility] Nurse Note* Duong Mckeon Ma - 03/12/2022 9:26 AM EST 03/12/2022: Home BP Cuff Validated. Home BP: 158/87 hr 70 Office BP: 163/81 hr 70 documented in this encounterOhio[facility]10-14-[facility]22 History of Present illness Narrative* Chapis Argueta APRN.CNP - 01/10/2022 11:08 AM EDT CC Patient presents with: F/U 3 Month HPI Erickson Riggs is a 61 year old male who [...] minutes COVID 11/26/2020 CVA (cerebral infarction) 02/2011 Francis and Stephanie DDD (degenerative disc disease), lumbar [...] other (cervical/uterine cancer) Mother Heart Father d/t CT in late 70's Diabetes Sister Heart Failure [...] plan Chapis Argueta APRN.CNP documented in this encounterOhiohealth Berger Hospital07-26-2022 History and physical note * Christy Garner MD - 10/22/2021 12:40 PM EDT UPDATED HISTORY AND PHYSICAL EXAMINATION SERVICE DATE: 10/22/2021 SERVICE TIME: 11:23 PHYSICAL EXAM MUST BE COMPLETED ON ADMISSION The History and Physical (completed in the past 30 days) has been reviewed and the patient has beenexamined. The contents accurately reflect the patient's condition with the following additions or revisions since the H&P was completed. Examination indicates no changes. This H&P can be found in the Electronic Medical Record. SIGNATURE: Christy Garner MD PATIENT NAME: Erickson Riggs DATE: October 22, 2021 TIME: 11:23 AM * Christy Garner MD - 10/22/2021 12:40 PM EDT Images from the original note were not included. HISTORY AND PHYSICAL Erickson Riggs 1960 REFERRING PHYSICIAN: Mundo Plasencia MD CHIEF COMPLAINT: Consult (rectal bleeding) HPI: The patient is a 61 year old male referred for endoscopy. Erickson notes rectal bleeding. He denies pain in the area. 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 Hypercalciuria 04/22/2011 Hypertension Kidney stones Obesity (BMI 30-39.9) 07/25/2014 SONIA (obstructive sleep apnea) 07/25/2014 Paroxysmal atrial fibrillation (HCC) 10/27/2017 Dr[facility] Tobacco abuse 07/25/2014 PAST SURGICAL HISTORY Procedure Laterality Date LAPAROSCOPY SURG CHOLECYSTECTOMY 08/02/2014 PARTIAL MASTECTOMY Right 2003 benign, breast discharge PAST SURGICAL HISTORY OF [...] other (cervical/uterine cancer) Mother Heart Father d/t CT in late 70's Diabetes Sister Heart Failure Sister other (heart defect) Brother No Known Problems Brother No Known Problems Brother No Known Problems Brother Diabetes Maternal Grandmother Diabetes Maternal Grandfather No Known Problems Paternal Grandmother Diabetes Paternal Grandfather The review of systems data was entered by the nurse and reviewed by oh Nursing Notes: Kasey Saab RN 10/11/2021 2:25 [...] C (98.3 F), height 181.6 cm (5' 11.5"), weight 134.1 kg (295 lb 9.6 oz), [...] such as liver/spleen, perforation of the GI tract,inability to complete the procedure, complications of anesthesia, etc. the patient understands. The patient was offered a surgery/procedure at a [facility]. The provider and patient have discussed in detail the risk of exposure to and/or potential harm posed by the COVID-19 viruswith having a surgery/procedure at this time versus the risk of delaying the surgery/procedure. It is not possible to know either the risk of delaying the surgery or procedure or chance of getting aninfection with perfect accuracy, but a joint decision was made between the patient and the providerto proceed at this time with the scheduled surgery/procedure. I have explained to the patient the difference between IV conscious sedation and MAC anesthesia - and I have offered either, according to the patient's wishes. I have explained that with IV conscioussedation there is no anesthesia provider available and [...] (K62.5) Painless rectal bleeding documented in this encounterOhiohealth Berger Hospital07-26-2022 Miscellaneous Notes* Brief Op Note - Christy Garner MD - 10/22/2021 12:40 PM EDT BRIEF OPERATIVE NOTE SURGERY DATE: 10/22/2021 Incision/Procedure Start Time: 12:50 Cecal intubation time: 12:55 Incision Close/Procedure End Time: 13:05 Surgeon(s)/Proceduralist(s) and Nuclear Physicist(s): Pascual Procedures: diagnostic colonoscopy Anesthesia: MAC Findings: diverticulosis, hemorrhoids Estimated Blood Loss: 0 ml Specimens: None Complications: None Preop Diagnosis: rectal bleedgin Postop Diagnosis: same, diverticulosis, hemorrhoids SIGNATURE: Christy Garner MD PATIENT NAME: Erickson Riggs DATE: October 22, 2021 TIME: 1:09 PM documented in this encounterOhiohealth Berger Hospital07-18-2022 Miscellaneous Notes* Telephone Encounter - Kyleigh Christian - 10/14/2021 11:44 AM EDT 10/22 COLON LODI documented in this encounterOhiohealth Berger Hospital07-17-2022 History of Present illness Narrative* Christy Garner MD - 10/13/2021 11:52 AM EDT HISTORY AND PHYSICAL Erickson Riggs 1960 REFERRING PHYSICIAN: Mundo Plasencia MD CHIEF COMPLAINT: Consult (rectal bleeding) HPI: The patient is a 61 year old male referred for endoscopy. Erickson notes rectal bleeding. He denies pain in the area. He states that he had a colonoscopy greater than 10 years and it "tore him up" The patient states that there is no [...] other (cervical/uterine cancer) Mother Heart Father d/t CT in late 70's Diabetes Sister Heart Failure Sister other (heart defect) Brother No Known Problems Brother No Known Problems Brother No Known Problems Brother Diabetes Maternal Grandmother Diabetes Maternal Grandfather No Known Problems Paternal Grandmother Diabetes Paternal Grandfather The review of systems data was entered by the nurse and reviewed by oh Nursing Notes: Kasey Saab RN 10/11/2021 2:25 [...] C (98.3 F), height 181.6 cm (5' 11.5"), weight 134.1 kg (295 lb 9.6 oz), [...] such as liver/spleen, perforation of the GI tract,inability to complete the procedure, complications of anesthesia, etc. the patient understands. The patient was offered a surgery/procedure at a [facility]. The provider and patient have discussed in detail the risk of exposure to and/or potential harm posed by the COVID-19 viruswith having a surgery/procedure at this time versus the risk of delaying the surgery/procedure. It is not possible to know either the risk of delaying the surgery or procedure or chance of getting aninfection with perfect accuracy, but a joint decision was made between the patient and the providerto proceed at this time with the scheduled surgery/procedure. I have explained to the patient the difference between IV conscious sedation and MAC anesthesia - and I have offered either, according to the patient's wishes. I have explained that with IV conscioussedation there is no anesthesia provider available and [...] The patient is scheduled for colonoscopy at [facility]. Medical Decision Making: Problems: Low: Acute, uncomplicated illness or injury and Stable chronic illness Risk: Low: Low risk from testing/treatment Medical Decision Making Level: 3 - Low Christy Garner MD documented in this encounterOhiohealth Berger Hospital07-15-2022 Instructions* Patient Instructions* Christy Garner MD - 10/11/2021 2:24 PM EDT Images from the original note were not included. Bowel Preparation Instructions for: Golytely, Nulytely, Trilyte or Colyte (polyethylene glycol 3350and electrolytes) IF YOU DO NOT FOLLOW THESE DIRECTIONS, YOUR COLONOSCOPY WILL BE CANCELLED. Velarde Instructions: Your bowel must be empty so [...] If you do not have a responsible ambulance driver paramedic (family member or friend) with you to take you home, your exam cannot be done with sedation and will be cancelled. Please bring a list of all of your current medications, including any Over-the Counter medications with you. Medications If you take insulin, diabetic medications or blood thinners such as Coumadin (warfarin), Plavix (clopidogrel), Ticlid (ticlopidine hydrochloride), Agrylin (anagrelide), Xarelto (Rivaroxaban), Pradaxa(Dabigatran), Eliquis (Apixaban), and Effient (Prasugrel). You MUST [...] at your local pharmacy or drugstore pharmacy. 1 02/2019 Bowel Preparation Instructions for: Golytely, Nulytely, Trilyte or Colyte (polyethylene glycol 3350and electrolytes) Three (3) Days Before Your Colonoscopy [...] your exam. 3 02/2019 documented in this encounterOhiohealth Berger Hospital07-15-2022 Nurse Note* Kasey Saab RN - 10/11/2021 2:23 PM EDT REVIEW OF SYSTEMS: General: The patient denies [...] years Kasey Saab RN documented in this encounterOhiohealth Berger Hospital07-13-2022 History of Present illness Narrative* Mundo Plasencia MD - 10/09/2021 3:19 PM EDT This note was created using [employer]. Subjective Patient presents with: Yearly Exam Erickson Riggs is a 61 year old male. He did not pursue pain management. He had a panic attack inthe waiting room, and preferred not to be on medications. He stopped gabapentin. He was taking honey and lemon, and other supplements, and was feeling better. His hypertension was not at goal, and hehad gained weight. 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 Hypercalciuria 04/22/2011 Hypertension Kidney stones Obesity (BMI 30-39.9) 07/25/2014 SONIA (obstructive sleep apnea) 07/25/2014 Paroxysmal atrial fibrillation (HCC) 10/27/2017 [facility] Tobacco abuse 07/25/2014 PAST SURGICAL HISTORY Procedure Laterality Date LAPAROSCOPY SURG CHOLECYSTECTOMY 08/02/2014 PARTIAL MASTECTOMY Right 2003 benign, breast discharge PAST SURGICAL HISTORY OF [...] other (cervical/uterine cancer) Mother Heart Father d/t CT in late 70's Diabetes Sister Heart Failure [...] Artery) Resp 16 Ht 181.9 cm (5' 11.6") Wt 132.9 kg (293 lb) BMI 40.18 [...] SURGERY Mundo Plasencia MD documented in this encounterOhiohealth Berger Hospital05-20-2022 Miscellaneous Notes* Telephone Encounter - Roula Bergeron LPN - 08/16/2021 4:41 PM EDT Patient has been identified by name and [...] Please advise. Thank you. Roula Bergeron LPN * Telephone Encounter - [address] Pss - 08/16/2021 12:06 PM EDT Patient has been identified by name and date of : Yes Pending Prescriptions Disp Refills DILTIAZEM SR 300 MG 24 HR CAP 30 capsule 5 Sig: Take 1 capsule by mouth once daily. ALBERTO: No RX INSTRUCTIONS: Patient aware RX will be sent to pharmacy. No need to notify patient. [address] Pss documented in this encounterOhiohealth Berger Hospital10-06-2021 History of Past illness Narrative* Problem [...] of this encounter (statuses as of 10/09/2021) [facility] of Past illness Narrative* Problem [...] of this encounter (statuses as of 10/13/2021) [facility] History of Past illness Narrative* Problem [...] of this encounter (statuses as of 10/23/2021) [facility] History of Past illness Narrative* Problem [...] of this encounter (statuses as of 12/05/2021) [facility] of Past illness Narrative* Problem [...] of this encounter (statuses as of 01/10/2022) [facility] of Past illness Narrative* Problem [...] of this encounter (statuses as of 03/12/2022) [facility] of Past illness Narrative* Problem [...] of this encounter (statuses as of 04/05/2022) [facility] of Past illness Narrative* Problem [...] of this encounter (statuses as of 04/24/2022) [facility] of Past illness Narrative* Problem [...] of this encounter (statuses as of 07/04/2022) [facility] of Past illness Narrative* Problem [...] of this encounter (statuses as of 07/07/2022) [facility] of Past illness Narrative* Problem [...] of this encounter (statuses as of 09/23/2022) [facility] History of Present illness Narrative* Darcy Lombardi RT(R) - 01/02/2021 11:20 AM EDT Radiology Service Progress Note PATIENT NAME: Erickson Riggs DATE OF SERVICE: January 02, 2021 TIME: 11:22 AM PATIENT IDENTITY VERIFICATION COMPLETED USING TWO (2) IDENTIFIERS: Name and Date of confirmedby patient verbally. FALL SCREENING: Has the patient had 2 falls in the last year or 1 fall with injury or currently using an Ambulatory Assistive Device (Walker, Cane, Wheelchair, Crutches, etc.)? No PATIENT GENDER DATA: Male PATIENT RELEVANT IMPLANT DATA REVIEWED: Yes RADIOLOGY DEPARTMENT: General X-ray: Exam(s) Completed: Chest X-Ray PERIPHERAL IV DATA: Not applicable SIGNED BY: RT Jcarlos(R) January 02, 2021 11:22 AM documented in this encounterOhiohealth Berger Hospital04-13-2021 History of Present illness Narrative* Darcy Lombardi (Rt), [facility] - 07/10/2020 11:30 AM EDT Radiology Service Progress Note PATIENT NAME: Erickson Riggs DATE OF SERVICE: July 10, 2020 TIME: 11:35 AM PATIENT IDENTITY VERIFICATION COMPLETED USING TWO (2) IDENTIFIERS: Name and Date of confirmedby patient verbally. FALL SCREENING: Has the patient had 2 falls in the last year or 1 fall with injury or currently using an Ambulatory Assistive Device (Walker, Cane, Wheelchair, Crutches, etc.)? No PATIENT GENDER DATA: Male PATIENT RELEVANT IMPLANT DATA REVIEWED: Yes RADIOLOGY DEPARTMENT: General X-ray: Exam(s) Completed: Upper Extremity X- Ray(s): Elbow, left : PERIPHERAL IV DATA: Not applicable SIGNED BY: RT Jcarlos July 10, 2020 11:35 AM documented in this encounterOhiohealth Berger Hospital03-31-2021 History of Present illness Narrative* Darcy Lombardi Tech (Rt) - 06/27/2020 11:00 AM EDT Radiology Service Progress Note PATIENT NAME: Erickson Riggs DATE OF SERVICE: June 27, 2020 TIME: 10:56 AM PATIENT IDENTITY VERIFICATION COMPLETED USING TWO (2) IDENTIFIERS: Name and Date of confirmedby patient verbally. FALL SCREENING: Has the patient had 2 falls in the last year or 1 fall with injury or currently using an Ambulatory Assistive Device (Walker, Cane, Wheelchair, Crutches, etc.)? No PATIENT GENDER DATA: Male PATIENT RELEVANT IMPLANT DATA REVIEWED: Yes RADIOLOGY DEPARTMENT: General X-ray: Exam(s) Completed: Chest X-Ray PERIPHERAL IV DATA: Not applicable SIGNED BY: RT Jcarlos June 27, 2020 10:56 AM documented in this encounterOhiohealth Berger Hospital04-28-2015 History of Past illness Narrative* Problem Noted Date Resolved Date Severe sleep apnea 07/25/2014 07/25/2014 Cholelithiasis 07/17/2014 10/27/2017 Abdominal pain 07/17/2014 10/27/2017 Hypercalciuria 04/22/2011 12/29/2019 Kidney stones 04/11/2011 12/29/2019 Abnormal PSA 04/11/2011 09/01/2018 documented as of this encounter (statuses as of 08/16/2021) [facility]* Diagnosis Hypertension, essential Unspecified essential hypertension documented [facility] this encounter [facility]* Diagnosis Routine medical exam- Primary Routine [...] Painless rectal bleeding documented in this encounter [facility] note* Diagnosis Painless rectal bleeding documented in this encounter [facility] note* Diagnosis Painless rectal bleeding documented in this encounter [facility] note* Diagnosis Primary hypertension- Primary Unspecified essential hypertension documented in this encounter [facility] note* Diagnosis Primary hypertension- Primary Unspecified essential hypertension documented in this encounter [facility] note* Diagnosis Primary hypertension Unspecified essential hypertension documented in this encounter [facility] note* Diagnosis Chest pain, unspecified type- Primary Ascending aorta dilation (HCC) Thoracic aortic ectasia Paroxysmal atrial fibrillation (HCC) Atrial fibrillation Primary hypertension Unspecified essential hypertension documented in this encounter [facility] note* Diagnosis Essential hypertension- Primary Unspecified essential hypertension [facility]* Diagnosis Primary hypertension Unspecified essential hypertension documented in this encounter [facility] noteNo assessment information availableWFulton County [facility] Work Phone: Evaluation note* Diagnosis Chest pain, unspecified type- Primary Cardiomyopathy, unspecified type (HCC) Primary hypertension Unspecified essential hypertension Ascending aorta dilation (HCC) Thoracic aortic ectasia Paroxysmal atrial fibrillation (HCC) Atrial fibrillation Chronic bronchitis, obstructive (HCC) Obstructive chronic bronchitis without exacerbation documented in this encounter [facility] note* Diagnosis Chest pain, unspecified type documented in this encounter [facility] note* Diagnosis Chronic bronchitis, obstructive (HCC) Obstructive chronic bronchitis without exacerbation History of COVID-19 documented in this encounter [facility] note* Diagnosis Elbow swelling, left documented in this encounter [facility] note* Diagnosis Chronic bronchitis, unspecified chronic bronchitis type (HCC) documented in this encounter [facility] note* Diagnosis Primary hypertension Unspecified essential hypertension documented in this encounter [facility] note* Diagnosis Medicare annual wellness visit, subsequent- Primary Routine general medical examination at a health care facility Nodule of left lung Solitary pulmonary nodule Chronic bronchitis, obstructive (HCC) Obstructive chronic bronchitis without exacerbation Paroxysmal atrial fibrillation (HCC) Atrial fibrillation Ascending aorta dilation (HCC) Thoracic aortic ectasia Cardiomyopathy, unspecified type (HCC) Obesity, Class III, BMI 40-49.9 (morbid obesity) (HCC) Morbid obesity Screening for depression Encounter for screening examination for other mental health and behavioral disorders BPH with obstruction/lower urinary tract symptoms Hypertrophy of prostate with urinary obstruction and other lower urinary tract symptoms (LUTS) Primary hypertension Unspecified essential hypertension documented in this encounter [facility] note* Diagnosis Aneurysm of ascending aorta without rupture (HCC)- Primary Chest pain, unspecified type Morbid obesity (HCC) Morbid obesity SONIA (obstructive sleep apnea) Obstructive sleep apnea (adult) (pediatric) Primary hypertension Unspecified essential hypertension Hx of arterial ischemic stroke documented in this encounter [facility] note* Diagnosis Aneurysm of ascending aorta without rupture (HCC) Aneurysm of ascending aorta without rupture (HCC)- Primary documented in this encounter [facility] note* Diagnosis Aneurysm of ascending aorta without rupture (HCC)- Primary Aneurysm of ascending aorta without rupture (HCC) [facility]* Diagnosis Aneurysm of ascending aorta without rupture (HCC) [facility]* Diagnosis Primary hypertension Unspecified essential hypertension documented in this encounter [facility] note* Diagnosis Aneurysm of ascending aorta without rupture (HCC)- Primary Morbid obesity (HCC) Morbid obesity Essential hypertension Unspecified essential hypertension Shortness of breath documented in this encounter [facility] note* Diagnosis SONIA (obstructive sleep apnea) Obstructive sleep apnea (adult) (pediatric) Aneurysm of the ascending aorta, without rupture (HCC) [facility]* Diagnosis Aneurysm of the ascending aorta, without rupture (HCC)- Primary Aneurysm of ascending aorta without rupture (HCC) Aneurysm of the ascending aorta, without rupture (HCC) documented in this encounter [facility] note* Diagnosis Aneurysm of the ascending aorta, without rupture (HCC)- Primary Aneurysm of ascending aorta without rupture (HCC) Aneurysm of the ascending aorta, without rupture (HCC) Pleural effusion Unspecified pleural effusion S/P ascending aortic replacement Blood vessel replaced by other means [facility]* Diagnosis Mucopurulent chronic bronchitis (HCC)- Primary Mucopurulent chronic bronchitis SONIA (obstructive sleep apnea) Obstructive sleep apnea (adult) (pediatric) Acute on chronic systolic congestive heart failure (HCC) documented in this encounter [facility] note* Diagnosis S/P aorta repair- Primary documented in this encounter [facility] note* Diagnosis Mucopurulent chronic bronchitis (HCC)- Primary Mucopurulent chronic bronchitis SONIA (obstructive sleep apnea) Obstructive sleep apnea (adult) (pediatric) Acute on chronic systolic congestive heart failure (HCC) documented in this encounter [facility] note* Diagnosis History of ascending aorta repair- Primary Personal history of surgery to heart and great vessels, presenting hazards to health New onset type 2 diabetes mellitus (HCC) Cardiomyopathy, unspecified type (HCC) Primary hypertension Unspecified essential hypertension Respiratory failure with hypoxia, unspecified chronicity (HCC) SONIA (obstructive sleep apnea) intolerant to CPAP Obstructive sleep apnea (adult) (pediatric) Urine retention Retention of urine, unspecified Paroxysmal atrial fibrillation (HCC) Atrial fibrillation Delirium Other alteration of consciousness Anemia, unspecified type S/P aorta repair-Valve sparing aortic root, ascending aorta replacement 30mm Cardioroot graft; Left atrial appendage exclusion 40mm Atriclip; ENRIQUE Other postprocedural status Chronic bronchitis, obstructive (HCC) Obstructive chronic bronchitis without exacerbation Gastroesophageal reflux disease, unspecified whether esophagitis present BPH with obstruction/lower urinary tract symptoms Hypertrophy of prostate with urinary obstruction and other lower urinary tract symptoms (LUTS) documented in this encounter [facility] note* Diagnosis Benign prostatic hyperplasia with urinary retention- Primary documented in this encounter [facility] note* Diagnosis Onset Date Resolution Status Admit Date Paroxysmal atrial fibrillation chron ic September 20, 2024 10:02am [facility] Work [facility]* Diagnosis Acute on chronic respiratory failure with hypoxia and hypercapnia (HCC)- Primary Chronic obstructive pulmonary disease, unspecified COPD type (HCC) documented in this encounter [facility] note* Diagnosis Acute cystitis without hematuria- Primary Acute cystitis documented in this encounter [facility] note* Diagnosis Primary hypertension Unspecified essential hypertension BPH with obstruction/lower urinary tract symptoms Hypertrophy of prostate with urinary obstruction and other lower urinary tract symptoms (LUTS) Paroxysmal atrial fibrillation (HCC) Atrial fibrillation Gastroesophageal reflux disease, unspecified whether esophagitis present New onset type 2 diabetes mellitus (HCC) Cardiomyopathy, unspecified type (HCC) documented in this encounter [facility] note* Diagnosis S/P aorta repair-Valve sparing aortic root, ascending aorta replacement 30mm Cardioroot graft; Left atrial appendage exclusion 40mm Atriclip; ENRIQUE- Primary Other postprocedural status New onset type 2 diabetes mellitus (HCC) Primary hypertension Unspecified essential hypertension Cardiomyopathy, unspecified type (HCC) Respiratory failure with hypoxia, unspecified chronicity (HCC) Paroxysmal atrial fibrillation (HCC) Atrial fibrillation documented in this encounter [facility] note* Diagnosis Stage 1 mild COPD by GOLD classification (HCC)- Primary Chronic respiratory failure with hypoxia and hypercapnia (HCC) Morbid obesity (HCC) Morbid obesity [facility] Diagnosis Shortness of breath- Primary documented in this encounter [facility] note* Diagnosis COPD, mild (HCC)- Primary Chronic airway obstruction, not elsewhere classified Obesity hypoventilation syndrome (HCC) Obesity hypoventilation syndrome Former smoker Personal history of tobacco use, presenting hazards to health Morbid obesity (HCC) Morbid obesity [facility] Diagnosis New onset type 2 diabetes mellitus (HCC)- Primary Paroxysmal atrial fibrillation (HCC) Atrial fibrillation Primary hypertension Unspecified essential hypertension Chronic bronchitis, obstructive (HCC) Obstructive chronic bronchitis without exacerbation Obesity, Class III, BMI >= 40 Morbid obesity documented in this encounter [facility] for referral (narrative)* Outpatient Procedure (Routine) - Authorized Specialty Diagnoses / Procedures Referred By Contac t Referred To Contact [facility] Diagnoses Painless rectal bleeding Procedures COLONOSCOPY DIAGNOSTIC COLONOSCOPY FLX DX W/COLLJ SPEC WHEN Christy Hernández MD [address] [place] [address] [facility] [place] [address] Referral ID Status Reason Start Date Expiration Date Visits Requested Visits Authorized [id number] Authorized Auto-Generat ed Referral 10/11/2021 10/11/2022 1 1 [facility] for referral (narrative)* Outpatient Procedure (Routine) - Closed Specialty Diagnoses / Procedures Referred By Contac t Referred To Contact [facility] Diagnoses Painless rectal bleeding Procedures COLONOSCOPY DIAGNOSTIC COLONOSCOPY FLX DX W/COLLJ SPEC WHEN Christy Hernández MD [address] [place] [address] [facility] [address] [place] [address] Referral ID Status Reason Start Date Expiration Date V isits Requested Visits Authorized [id number] Closed Auto-Generate d Referral 10/11/2021 10/11/2022 1 1 [facility] for referral (narrative)* Outpatient Procedure (Routine) - Closed Specialty Diagnoses / Procedures Referred By Contac t Referred To Contact [facility] Diagnoses Chest pain, unspecified type Procedures ECG COMPLETE ECG ROUTINE ECG W/LEAST 12 LDS W/I&R Mundo Plasencia MD [address] [place] [address] [address] Referral ID Status Reason Start Date Expiration Date V isits Requested Visits Authorized [id number] Closed Auto-Generate d Referral 04/24/2022 04/24/2023 1 1 [facility] for referral (narrative)* Outpatient Procedure (Routine) - Pending Review Specialty Diagnoses / Procedures Referred By Key de la rosa Referred To [facility] Diagnoses Chest pain, unspecified type Procedures ECG COMPLETE ECG ROUTINE ECG W/LEAST 12 LDS W/I&R uMndo Plasencia MD [address] [place] [address] [address] Referral ID Status Reason Start Date Expiration Date Visits Requested Visits Authorized [id number] Pending Review Auto-Generat ed Referral 07/27/2023 07/26/2024 1 1 [facility] for referral (narrative)No reason for referral information [facility]Community [facility] Services Work Phone: Reason for visit Narrative* Outpatient Procedure (Routine) - Closed Specialty Diagnoses / Procedures Referred By Contac t Referred To Contact [facility] Diagnoses Painless rectal bleeding Procedures COLONOSCOPY DIAGNOSTIC COLONOSCOPY FLX DX W/COLLJ SPEC WHEN PFRMD Christy Garner MD [address] [place] [address] [facility] [address] [place] [address] Referral ID Status Reason Start Date Expiration Date V isits Requested Visits Authorized [id number] Closed Auto-Generate d Referral 10/11/2021 10/11/2022 1 1 [facility] for visit Narrative* Auth/Cert (Routine) Specialty Diagnoses / Procedures Referred By [facility] Referred To Contact Diagnoses Aneurysm of ascending aorta without rupture (HCC) Aneurysm of ascending aorta without rupture (HCC) [I71.21] Procedures MT R & L HRT CATH WINJX HRT ART& L VENTR IMG Left and right heart cath / coronary angiography Joe Timmons MD [address] [facility] [address] [place] [address] Phone: tel: fax: Referral ID Status Reason Start Date Expiration Date Visits Re quested Visits Authorized [id number] 06/01/2024 1 1 [facility] for visit Narrative* Imaging (Routine) - Closed Specialty Diagnoses / Procedures [facility] To Contact [facility] Diagnoses Aneurysm of ascending aorta without rupture (HCC) Procedures Transthoracic echocardiogram (TTE) complete with contrast, bubble, strain, and 3D PRN MT ECHO TTHRC R-T 2D W/WOM-MODE COMPL SPEC&COLR D MT TTE W OR WO FOL WCVIVEK MÁRQUEZ Otfried N, MD [address] [facility] [address] [place] [address] Phone: tel: fax: Referral ID Status Reason Start Date Expiration Date Visits Re quested Visits Authorized [id number] Closed 06/01/2024 06/01/2025 1 1 [facility] for visit Narrative* (Routine) - Pending Review Specialty Diagnoses / Procedures [facility] To Contact Diagnoses SONIA (obstructive sleep apnea) Procedures Complete PFT study Mars Solano DO [address] [place] [address] Phone: tel: fax: Referral ID Status Reason Start Date Expiration Date V isits Requested Visits Authorized [id number] Pending Review 07/21/2024 07/16/2025 1 [facility]/Cert (Routine) Specialty Diagnoses / Procedures Referred By Contac t Referred To Contact Diagnoses Aneurysm of the ascending aorta, without rupture (HCC) Procedures MT RPLCMT PROST AORTIC VALVE OPEN XCP HOMOGRF/STENT MT -AORT GRF W/CARD BYP F/AORTIC DS OTH/THN DSJ MT ECHO TRANSESOPHAG R-T 2D W/PRB IMG ACQUISJ I&R ASCENDING AORTA AND AORTIC ROOT REPLACEMENT ASCENDING AORTA GRAFT W CARDIOPULMONARY BYPASS INCLUDE VALVE SUSP FOR AORTIC DISEASE OTHER THAN DISSECTION TRANSESOPHAGEAL ECHOCARDIOGRAM Mars Solano, DO [address] [place] [address] Phone: tel: fax: Referral ID Status Reason Start Date Expiration Date Visits Re quested Visits Authorized [id number] 07/22/2024 1 1 [facility] Summary Purpose Family History No Family History Records Found Relationship Condition Age at Onset Recorded Date/T nate mother Coronary artery disease Unknown father Coronary artery disease Unknown Advance Directives No Advanced Directives Records FoundDocuments on File Type Date 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 Advance Directive(s) 10/22/2021 11:09 AM Advance Directive Response Recorded Date/ Time Advance Directives No August 02, 2015 11:51am Living Will No May 29, 2022 9:55am Power of Panel Maker No May 29 9:55am Date Activated Date Inactivated Comments 06/08/2024 8:44 AM 06/08/2024 5:25 PM Date Activated Date Inactivated Comments 06/08/2024 8:44 AM 06/08/2024 5:25 PM Date Activated Date Inactivated Comments 08/03/2024 5:38 AM 08/16/2024 3:43 PM Date Activated Date Inactivated Comments 06/08/2024 8:44 AM 06/08/2024 5:25 PM Date Activated Date Inactivated Comments 08/03/2024 5:38 AM 08/16/2024 3:43 PM Date Activated Date Inactivated Comments 06/08/2024 8:44 AM 06/08/2024 5:25 PM Advance Directive Response Recorded Date/ Time Advance Directives No August 02, 2015 12:51pm Reason for Referral Specialty Diagnoses / Procedures Referred By Key de la rosa Referred To Contact General Surgery Diagnoses Painless rectal bleeding Procedures CONSULT TO GENERAL SURGERY OFFICE/OUTPATIENT [facility] MDM 60-74 MINUTES Mundo Plasencia MD [address] [place] [address] Referral ID Status Reason Start Date Expiration Date Visits Requested Visits Authorized [id number] Authorized PCP Requested Referral 10/09/2021 10/09/2022 1 1 Chief Complaint and Reason for Visit Chief Complaint Admit Date S/P [facility] 08/03September 20, 2024 10:0 2am Reason for Visit Admit Date Obstructive sleep apnea September 20, 2024 10:02am Ascending aortic aneurysm September 20 10:02am Dyspnea on exertion September 20, 2024 10:0 2am Essential (primary) hypertension September 202024 10:02am Paroxysmal atrial fibrillation August 10:02am Chief Complaint PULMONARY NODULE/AAA Reason for Visit Admit Date Paroxysmal atrial fibrillation August 10:02am Chief Complaint Admit Date S/P [facility] 08/03September 20, 2024 10:0 2am E-ORDER September 29, 2024 1:42p m Reason for Visit Admit Date Obstructive sleep apnea September 20, 2024 10:02am Ascending aortic aneurysm September 20 10:02am Essential (primary) hypertension September 202024 10:02am Lower extremity edema September 20, 2024 10 :02am Paroxysmal atrial fibrillation August 10:02am Chief Complaint Admit Date S/P [facility] 08/03September 20, 2024 10:0 2am E-ORDER September 29, 2024 1:42p m 4-6 WK FU October 31, 2024 9:1 0am Reason for Visit Admit Date Obstructive sleep apnea September 20, 2024 10:02am Ascending aortic aneurysm September 20 10:02am Essential (primary) hypertension September 202024 10:02am Lower extremity edema September 20, 2024 10 :02am Paroxysmal atrial fibrillation August 10:02am Obstructive sleep apnea October 31, 2024 9:10am Ascending aortic aneurysm October 31 9:10am Essential (primary) hypertension October 31, 2024 9:10am Lower extremity edema October 31, 2024 9 :10am Paroxysmal atrial fibrillation October 9:10am Chief Complaint Admit Date S/P [facility] 08/03September 20, 2024 10:0 2am E-ORDER September 29, 2024 1:42p m 4-6 WK FU October 31, 2024 9:1 0am EORDER October 31, 2024 11: 17am Acid reflux November 02, 2024 8:2 7am Reason for Visit Admit Date Obstructive sleep apnea September 20, 2024 10:02am Ascending aortic aneurysm September 20 10:02am Essential (primary) hypertension September 202024 10:02am Lower extremity edema September 20, 2024 10 :02am Paroxysmal atrial fibrillation August 10:02am Obstructive sleep apnea October 31, 2024 9:10am Ascending aortic aneurysm October 31 9:10am Essential (primary) hypertension October 31, 2024 9:10am Lower extremity edema October 31, 2024 9 :10am Paroxysmal atrial fibrillation October 9:10am Anemia November 02, 2024 8:2 7am Gastroesophageal reflux disease November 022024 8:27am Chief Complaint Admit Date S/P [facility] 08/03September 20, 2024 10:0 2am E-ORDER September 29, 2024 1:42p m 4-6 WK FU October 31, 2024 9:1 0am EORDER October 31, 2024 11: 17am Acid reflux November 02, 2024 8:2 7am E-ORDER November 17, 2024 11 :40am Additional Source Comments (unrecognized sect ion and content) No Status Records FoundNo Status Records FoundNo Status Records FoundNo Status Records FoundNo Status Records Found INFORMATION SOURCE (unrecogn ized section and content) DATE CREATED AUTHOR 10/01/2017 [facility] ([place]) DATE CREATED AUTHOR AUTHOR'S ORGANIZ ATION 10/23/2021 [facility] DATE CREATED AUTHOR AUTHOR'S ORGANIZ ATION 10/21/2024 [facility] DATE CREATED AUTHOR AUTHOR'S ORGANIZ ATION 11/02/2024 [facility] DATE CREATED AUTHOR AUTHOR'S ORGANIZ ATION 12/15/2024 [facility] Source Comments (unrecognize d section and content) In the event this informatio n is protected by the Federal Confidentiality of Alcohol and Drug Abuse Patient Records regulations: The Federal rules restrict any use of the information to criminally investigate or prosecute any alcohol or drug abuse patient.[facility] the event this information is protected by the Federal Confidentiality of Alcohol and Drug Abuse Patient Records regulations: The Federal rules restrict any use of the information to criminally investigate or prosecute any alcohol or drug abuse patient.[facility] HospitalIn the event this information is protected by the Federal Confidentiality of Alcohol and Drug Abuse Patient Records regulations: The Federal rules restrict any use of the information to criminally investigate or prosecute any alcohol or drug abuse patient.[facility] HospitalIn the event this information is protected by the Federal Confidentiality of Alcohol and Drug Abuse Patient Records regulations: The Federal rules restrict any use of the information to criminally investigate or prosecute any alcohol or drug abuse patient.[facility] HospitalIn the event this information is protected by the Federal Confidentiality of Alcohol and Drug Abuse Patient Records regulations: The Federal rules restrict any use of the information to criminally investigate or prosecute any alcohol or drug abuse patient.[facility] HospitalIn the event this information is protected by the Federal Confidentiality of Alcohol and Drug Abuse Patient Records regulations: The Federal rules restrict any use of the information to criminally investigate or prosecute any alcohol or drug abuse patient.[facility] HospitalIn the event this information is protected by the Federal Confidentiality of Alcohol and Drug Abuse Patient Records regulations: The Federal rules restrict any use of the information to criminally investigate or prosecute any alcohol or drug abuse patient.[facility] HospitalIn the event this information is protected by the Federal Confidentiality of Alcohol and Drug Abuse Patient Records regulations: The Federal rules restrict any use of the information to criminally investigate or prosecute any alcohol or drug abuse patient.[facility] HospitalIn the event this information is protected by the Federal Confidentiality of Alcohol and Drug Abuse Patient Records regulations: The Federal rules restrict any use of the information to criminally investigate or prosecute any alcohol or drug abuse patient.[facility] HospitalIn the event this information is protected by the Federal Confidentiality of Alcohol and Drug Abuse Patient Records regulations: The Federal rules restrict any use of the information to criminally investigate or prosecute any alcohol or drug abuse patient.[facility] HospitalIn the event this information is protected by the Federal Confidentiality of Alcohol and Drug Abuse Patient Records regulations: The Federal rules restrict any use of the information to criminally investigate or prosecute any alcohol or drug abuse patient.[facility] HospitalIn the event this information is protected by the Federal Confidentiality of Alcohol and Drug Abuse Patient Records regulations: The Federal rules restrict any use of the information to criminally investigate or prosecute any alcohol or drug abuse patient.[facility] HospitalIn the event this information is protected by the Federal Confidentiality of Alcohol and Drug Abuse Patient Records regulations: The Federal rules restrict any use of the information to criminally investigate or prosecute any alcohol or drug abuse patient.[facility] HospitalIn the event this information is protected by the Federal Confidentiality of Alcohol and Drug Abuse Patient Records regulations: The Federal rules restrict any use of the information to criminally investigate or prosecute any alcohol or drug abuse patient.[facility] HospitalIn the event this information is protected by the Federal Confidentiality of Alcohol and Drug Abuse Patient Records regulations: The Federal rules restrict any use of the information to criminally investigate or prosecute any alcohol or drug abuse patient.[facility] HospitalIn the event this information is protected by the Federal Confidentiality of Alcohol and Drug Abuse Patient Records regulations: The Federal rules restrict any use of the information to criminally investigate or prosecute any alcohol or drug abuse patient.[facility] HospitalIn the event this information is protected by the Federal Confidentiality of Alcohol and Drug Abuse Patient Records regulations: The Federal rules restrict any use of the information to criminally investigate or prosecute any alcohol or drug abuse patient.[facility] HospitalIn the event this information is protected by the Federal Confidentiality of Alcohol and Drug Abuse Patient Records regulations: The Federal rules restrict any use of the information to criminally investigate or prosecute any alcohol or drug abuse patient.[facility] HospitalIn the event this information is protected by the Federal Confidentiality of Alcohol and Drug Abuse Patient Records regulations: The Federal rules restrict any use of the information to criminally investigate or prosecute any alcohol or drug abuse patient.[facility] HospitalIn the event this information is protected by the Federal Confidentiality of Alcohol and Drug Abuse Patient Records regulations: The Federal rules restrict any use of the information to criminally investigate or prosecute any alcohol or drug abuse patient.[facility] HospitalIn the event this information is protected by the Federal Confidentiality of Alcohol and Drug Abuse Patient Records regulations: The Federal rules restrict any use of the information to criminally investigate or prosecute any alcohol or drug abuse patient.[facility] HospitalIn the event this information is protected by the Federal Confidentiality of Alcohol and Drug Abuse Patient Records regulations: The Federal rules restrict any use of the information to criminally investigate or prosecute any alcohol or drug abuse patient.[facility] HospitalIn the event this information is protected by the Federal Confidentiality of Alcohol and Drug Abuse Patient Records regulations: The Federal rules restrict any use of the information to criminally investigate or prosecute any alcohol or drug abuse patient.[facility] HospitalIn the event this information is protected by the Federal Confidentiality of Alcohol and Drug Abuse Patient Records regulations: The Federal rules restrict any use of the information to criminally investigate or prosecute any alcohol or drug abuse patient.[facility] HospitalIn the event this information is protected by the Federal Confidentiality of Alcohol and Drug Abuse Patient Records regulations: The Federal rules restrict any use of the information to criminally investigate or prosecute any alcohol or drug abuse patient.[facility] HospitalIn the event this information is protected by the Federal Confidentiality of Alcohol and Drug Abuse Patient Records regulations: The Federal rules restrict any use of the information to criminally investigate or prosecute any alcohol or drug abuse patient.[facility] HospitalIn the event this information is protected by the Federal Confidentiality of Alcohol and Drug Abuse Patient Records regulations: The Federal rules restrict any use of the information to criminally investigate or prosecute any alcohol or drug abuse patient.[facility] HospitalIn the event this information is protected by the Federal Confidentiality of Alcohol and Drug Abuse Patient Records regulations: The Federal rules restrict any use of the information to criminally investigate or prosecute any alcohol or drug abuse patient.[facility] HospitalIn the event this information is protected by the Federal Confidentiality of Alcohol and Drug Abuse Patient Records regulations: The Federal rules restrict any use of the information to criminally investigate or prosecute any alcohol or drug abuse patient.[facility] HospitalIn the event this information is protected by the Federal Confidentiality of Alcohol and Drug Abuse Patient Records regulations: The Federal rules restrict any use of the information to criminally investigate or prosecute any alcohol or drug abuse patient.[facility] HospitalIn the event this information is protected by the Federal Confidentiality of Alcohol and Drug Abuse Patient Records regulations: The Federal rules restrict any use of the information to criminally investigate or prosecute any alcohol or drug abuse patient.[facility] HospitalIn the event this information is protected by the Federal Confidentiality of Alcohol and Drug Abuse Patient Records regulations: The Federal rules restrict any use of the information to criminally investigate or prosecute any alcohol or drug abuse patient.[facility] HospitalIn the event this information is protected by the Federal Confidentiality of Alcohol and Drug Abuse Patient Records regulations: The Federal rules restrict any use of the information to criminally investigate or prosecute any alcohol or drug abuse patient.[facility] HospitalIn the event this information is protected by the Federal Confidentiality of Alcohol and Drug Abuse Patient Records regulations: The Federal rules restrict any use of the information to criminally investigate or prosecute any alcohol or drug abuse patient.[facility] HospitalIn the event this information is protected by the Federal Confidentiality of Alcohol and Drug Abuse Patient Records regulations: The Federal rules restrict any use of the information to criminally investigate or prosecute any alcohol or drug abuse patient.[facility] HospitalIn the event this information is protected by the Federal Confidentiality of Alcohol and Drug Abuse Patient Records regulations: The Federal rules restrict any use of the information to criminally investigate or prosecute any alcohol or drug abuse patient.[facility] HospitalIn the event this information is protected by the Federal Confidentiality of Alcohol and Drug Abuse Patient Records regulations: The Federal rules restrict any use of the information to criminally investigate or prosecute any alcohol or drug abuse patient.[facility] HospitalIn the event this information is protected by the Federal Confidentiality of Alcohol and Drug Abuse Patient Records regulations: The Federal rules restrict any use of the information to criminally investigate or prosecute any alcohol or drug abuse patient.[facility] HospitalIn the event this information is protected by the Federal Confidentiality of Alcohol and Drug Abuse Patient Records regulations: The Federal rules restrict any use of the information to criminally investigate or prosecute any alcohol or drug abuse patient.[facility] HospitalIn the event this information is protected by the Federal Confidentiality of Alcohol and Drug Abuse Patient Records regulations: The Federal rules restrict any use of the information to criminally investigate or prosecute any alcohol or drug abuse patient.[facility] HospitalIn the event this information is protected by the Federal Confidentiality of Alcohol and Drug Abuse Patient Records regulations: The Federal rules restrict any use of the information to criminally investigate or prosecute any alcohol or drug abuse patient.[facility] HospitalIn the event this information is protected by the Federal Confidentiality of Alcohol and Drug Abuse Patient Records regulations: The Federal rules restrict any use of the information to criminally investigate or prosecute any alcohol or drug abuse patient.[facility] HospitalIn the event this information is protected by the Federal Confidentiality of Alcohol and Drug Abuse Patient Records regulations: The Federal rules restrict any use of the information to criminally investigate or prosecute any alcohol or drug abuse patient.[facility] Reason for Visit (unrecogniz ed section and content) Reason Comments Prescription Refills Reason Comments Yearly Exam Reason Comments Consult rectal bleeding Specialty Diagnoses / Procedures Referred By Contac t Referred To Contact General Surgery Diagnoses Painless rectal bleeding Procedures CONSULT TO GENERAL SURGERY OFFICE/OUTPATIENT NEW HIGH MDM 60-74 MINUTES Mundo Plasencia MD [address] [place] [address] Referral ID Status Reason Start Date Expiration Date V isits Requested Visits Authorized [id number] Closed PCP Requested Referral 10/09/2021 10/09/2022 1 1 Reason Comments 10/22 COLON LODI Reason Comments F/U 3 Month Reason Comments 2 month follow up - blood pressure Lisin opril causing runny nose Reason Onset Date Comments Refill Request 04/02/2022 Reason Comments 6 week follow-up Reason Comments Blood Pressure Check Reason Onset Date Comments Refill Request 09/22/2022 Reason Comments Chest Pain Reason Comments Patient Update Reason Onset Date Comments Refill Request 04/08/2024 Reason Comments Medicare Wellness Exam 6 months Reason Comments New Patient Specialty Diagnoses / Procedures Referred By Contac t Referred To Contact Cardiothoracic Surgery Diagnoses Thoracic aoritic aneurysm Procedures NEW PATIENT Alcides Wallace PA [address] [place] [id number] Phone: tel: fax: Mars Solano DO [address] [place] [address] Phone: tel: fax: Referral ID Status Reason Start Date Expiration Date V isits Requested Visits Authorized [id number] Pending Review 05/18/2024 05/18/2025 1 1 Reason Comments New Patient Pre-op Exam Specialty Diagnoses / Procedures [facility] To Contact Cardiology Diagnoses Aneurysm of ascending aorta without rupture (HCC) Procedures MT OFFICE/OUTPATIENT NEW HIGH MDM 60 MINUTES Mars Solano DO [address] [place] [address] Phone: tel: fax: [facility] [place] [address] [place] [address] Phone: tel: fax: Referral ID Status Reason Start Date Expiration Date V isits Requested Visits Authorized [id number] Closed Specialty Services Required 05/19/2024 05/19/2025 1 1 Reason Onset Date Comments Procedure 06/01/2024 CATH schedule Reason Onset Date Comments Refill Request 07/13/2024 Reason Comments Follow-up Reason Onset Date Comments Surgery Scheduling 07/22/2024 Reason Comments Results New diagnosis of sharon betes mellitus. Labs from [facility] Reason Comments Question Reason Comments Orders Reason Comments Home Health Nursing-Plan of Care Reason Comments PT plan of care, request verbal order Reason Comments Hospital F/U Reason Comments [facility] requesting verbal Reason Comments New Patient Specialty Diagnoses / Procedures [facility] Referred To Contact Urology Diagnoses Urine retention Procedures CONSULT TO UROLOGY OFFICE/OUTPATIENT NEW HIGH MDM 60 MINUTES Mundo Plasencia MD [address] [place] [address] Phone: tel: fax: Referral ID Status Reason Start Date Expiration Date V isits Requested Visits Authorized [id number] Closed PCP Requested Referral 09/15/2024 09/08/2025 1 1 Reason Comments Orders for Weaning off Home )2 Reason Comments discharged from PT Reason Onset Date Comments BPCI Outreach 09/19/2024 Reason Comments Erroneous encounter-disregard Reason Onset Date Comments Refill Request 10/03/2024 Medication Problem 10/03/2024 Patient is ou t of medication Reason Comments 6 week follow-up Reason Comments New Patient Chronic Respiratory Failure Reason Comments Spirometry Specialty Diagnoses / Procedures Referred By Contac t Referred To Contact [facility] Diagnoses Chronic bronchitis, unspecified chronic bronchitis type (HCC) Procedures SPIROMETRY WITH DILATOR IF OBSTRUCTED BRNCDILAT RSPSE SPMTRY PRE&POST-BRNCDILAT ADMN Morgan Verde MD [address] [place] [address] Phone: tel: fax: [facility] [address] [address] Referral ID Status Reason Start Date Expiration Date V isits Requested Visits Authorized [id number] Closed Auto-Generate d Referral 10/24/2024 11/23/2025 1 1 Specialty Diagnoses / Procedures Referred By Contac t Referred To Contact [facility] Diagnoses Chronic bronchitis, unspecified chronic bronchitis type (HCC) Procedures LUNG DIFFUSION CAPACITY (DLCO) DIFFUSING CAPACITY Morgan Verde MD [address] [facility] [place] [address] Phone: tel: fax: Res[facility] [address] [address] Referral ID Status Reason Start Date Expiration Date V isits Requested Visits Authorized [id number] Closed Auto-Generate d Referral 10/24/2024 11/23/2025 1 1 Reason Comments Established Patient Follow up Results Reason Comments Follow Up 6 months Reason Onset Date Comments Transitional Care Management Outreach 11/15/2024 Telephone Visit 11/15/2024 Care Teams (unrecognized sec tion and content) 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 Relationship Specialty Start Date End Date Mundo Plasencia MD [address] [place], [place] [address] PCP - General Internal Medicine 12/28/19 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 Relationship Specialty Start Date End Date Mundo Plasencia MD [address] [place], [place] [id number] PCP - General Internal Medicine 12/28/19 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 Relationship Specialty Start Date End Date Mundo Plasencia MD [address] [place], [place] [id number] PCP - General Internal Medicine 12/28/19 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 Relationship Specialty Start Date End Date Mundo Plasencia MD [address] [facility] [place] [address] PCP - General Internal Medicine 12/28/19 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 Relationship Specialty Start Date End Date Mundo Plasencia MD [address] [place] [address] PCP - General Internal Medicine 12/28/19 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 Relationship Specialty Start Date End Date Mundo Plasencia MD [address] [place] [address] PCP - General Internal Medicine 12/28/19 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 Relationship Specialty Start Date End Date Mundo Plasencia MD [address] [place] [address] PCP - General Internal Medicine 12/28/19 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 Relationship Specialty Start Date End Date Mundo Plasencia MD [address] [place] [address] PCP - General Internal Medicine 12/28/19 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 Relationship Specialty Start Date End Date Mundo Plasencia MD [address] [place] [address] PCP - General Internal Medicine 12/28/19 Team Status: Active Member Role Status Dates Dr. Mundo Plasencia MD Family Provider Active Dr. Mundo Plasencia MD Primary Care Provider Active Team Status: Inactive Member Role Status Dates Alcides MIRANDA, PA Attending Provider, Referr ing Provider Active Dr. Mundo Plasencia MD Primary Care Provider Active 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 Relationship Specialty Start Date End Date Mundo Plasencia MD [address] [place] [address] PCP - General Internal Medicine 12/28/19 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 Relationship Specialty Start Date End Date Mundo Plasencia MD [address] [facility] [place] [address] PCP - General Internal Medicine 12/28/19 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 Relationship Specialty Start Date End Date Mundo Plasencia MD [address] [facility] [place] [address] PCP - General Internal Medicine 12/28/19 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 Relationship Specialty Start Date End Date Mundo Plasencia MD [address] [facility] [place] [address] PCP - General Internal Medicine 12/28/19 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 Relationship Specialty Start Date End Date Mundo Plasencia MD [address] [facility] [place] [address] PCP - General Internal Medicine 12/28/19 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 Relationship Specialty Start Date End Date Mundo Plasencia MD [address] [facility] [place] [address] PCP - General Internal Medicine 12/28/19 Chapis Dickens, COMMERCIAL PEST CONTROL REPRESENTATIVE.PLUMBING MANAGER [address] [facility] [place] [address] Clinical Dietetic Technician Internal Medicine 03/07/24 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 Relationship Specialty Start Date End Date Mundo Plasencia MD [address] [facility] [place] [place] [address] PCP - General Internal Medicine 12/28/19 Chapis Dickens, COMMERCIAL PEST CONTROL REPRESENTATIVE.PLUMBING MANAGER [address] [facility] [place] [address] Clinical Dietetic Technician Internal Medicine 03/07/24 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 Relationship Specialty Start Date End Date Mundo Plasencia [address] [facility] [place] [address] PCP - General Internal Medicine 05/27/24 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 Relationship Specialty Start Date End Date Mundo Plasencia [address] [facility] [place] [address] PCP - General Internal Medicine 05/27/24 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 Relationship Specialty Start Date End Date Mundo Plasencia [address] [facility] [place] [address] PCP - General Internal Medicine 05/27/24 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 Relationship Specialty Start Date End Date Mundo Plasencia [address] [facility] [place] [address] PCP - General Internal Medicine 05/27/24 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 Relationship Specialty Start Date End Date Mundo Plasencia [address] [facility] [place] [address] PCP - General Internal Medicine 05/27/24 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 Relationship Specialty Start Date End Date Mundo Plasencia MD [address] [facility] [place] [address] PCP - General Internal Medicine 12/28/19 Chapis Dickens, COMMERCIAL PEST CONTROL REPRESENTATIVE.PLUMBING MANAGER [address] [facility] [place] [address] Clinical Dietetic Technician Internal Medicine 03/07/24 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 Relationship Specialty Start Date End Date Mundo Plasencia [address] [facility] [place] [address] PCP - General Internal Medicine 05/27/24 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 Relationship Specialty Start Date End Date Mundo Plasencia [address] [facility] [place] [address] PCP - General Internal Medicine 05/27/24 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 Relationship Specialty Start Date End Date Mundo Plasencia [address] [facility] [place] [address] PCP - General Internal Medicine 05/27/24 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 Relationship Specialty Start Date End Date Mundo Plasencia [address] [facility] [place] [address] PCP - General Internal Medicine 05/27/24 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 Relationship Specialty Start Date End Date Mundo Plasencia MD [address] [facility] [place] [address] PCP - General Internal Medicine 12/28/19 Chapis Dickens, COMMERCIAL PEST CONTROL REPRESENTATIVE.PLUMBING MANAGER [address] [facility] [place] [address] Clinical Dietetic Technician Internal Medicine 03/07/24 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 Relationship Specialty Start Date End Date Mundo Plasencia MD [address] [facility] [place] [address] PCP - General Internal Medicine 12/28/19 Chapis Dickens, COMMERCIAL PEST CONTROL REPRESENTATIVE.PLUMBING MANAGER [address] [facility] [place] [address] Clinical Dietetic Technician Internal Medicine 03/07/24 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 Relationship Specialty Start Date End Date Mundo Plasencia [address] [facility] [place] [address] PCP - General Internal Medicine 05/27/24 Henrietta Roche, consulting networking engineerScrap Hoist Operator Manager 08/07/24 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 Relationship Specialty Start Date End Date Mundo Plasencia [address] [facility] [place] [address] PCP - General Internal Medicine 05/27/24 Henrietta Roche, consulting networking engineerScrap Hoist Operator Manager 08/07/24 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 Relationship Specialty Start Date End Date Mundo Plasencia [address] [facility] [place] [address] PCP - General Internal Medicine 05/27/24 Henrietta Roche, consulting networking engineerScrap Hoist Operator Manager 08/07/24 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 Relationship Specialty Start Date End Date Mundo Plasencia [address] [facility] [place] [address] PCP - General Internal Medicine 05/27/24 Henrietta Roche, consulting networking engineerScrap Hoist Operator Manager 08/07/24 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 Relationship Specialty Start Date End Date Mundo Plasencia [address] [facility] [place] [address] PCP - General Internal Medicine 05/27/24 Henrietta Roche, consulting networking engineerScrap Hoist Operator Manager 08/07/24 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 Relationship Specialty Start Date End Date Mundo Plasencia [address] [facility] [place] [address] PCP - General Internal Medicine 05/27/24 Henrietta Roche, RN Registered Nurse Scrap Hoist Operator Manager 08/07/24 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 Relationship Specialty Start Date End Date Mundo Plasencia MD [address] [facility] [place] [address] PCP - General Internal Medicine 12/28/19 Chapis Dickens, COMMERCIAL PEST CONTROL REPRESENTATIVE.PLUMBING MANAGER [address] [place] [address] Clinical Dietetic Technician Internal Medicine 03/07/24 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 Relationship Specialty Start Date End Date Mundo Plasencia MD [address] [place] [address] PCP - General Internal Medicine 12/28/19 Chapis Dickens, COMMERCIAL PEST CONTROL REPRESENTATIVE.PLUMBING MANAGER [address] [place] [address] Clinical Dietetic Technician Internal Medicine 03/07/24 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 Relationship Specialty Start Date End Date Mundo Plasencia [address] [place] [address] PCP - General Internal Medicine 05/27/24 Henrietta Roche, XAVIER Registered Nurse Scrap Hoist Operator Manager 08/07/24 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 Relationship Specialty Start Date End Date Mundo Plasencia MD [address] [place] [address] PCP - General Internal Medicine 12/28/19 Chapis Dickens, COMMERCIAL PEST CONTROL REPRESENTATIVE.PLUMBING MANAGER [address] [place] [address] Clinical Dietetic Technician Internal Medicine 03/07/24 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 Relationship Specialty Start Date End Date Mundo Plasencia MD [address] [place] [address] PCP - General Internal Medicine 12/28/19 Chapis Dickens, COMMERCIAL PEST CONTROL REPRESENTATIVE.PLUMBING MANAGER [address] [place] [address] Clinical Dietetic Technician Internal Medicine 03/07/24 Team Status: Inactive Member Role Status Dates Dr. Mundo Plasencia MD Primary Care Provider Active Start: September 20, 2024 End: September 20, 2024 Dr. Mundo Plasencia MD Referring Provider Active Start: September 20, 2024 End: September 20, 2024 RUBEN Yu Attending Provider Active St art: September 20, 2024 End: September 20, 2024 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 Relationship Specialty Start Date End Date Mundo Plasencia [address] [place], [place] [address] PCP - General Internal Medicine 05/27/24 Henrietta Roche, RN Registered Nurse Scrap Hoist Operator Manager 08/07/24 Team Status: Active Member Role/Relationship Status Dates Dr. Mundo Plasencia MD Family Provider Active Dr. Mundo Plasencia MD Primary Care Provider Active Team Status: Inactive Member Role/Relationship Status Dates Dr. Mundo Plasencia MD Primary Care Provider Active Start: September 20, 2024 End: September 20, 2024 Dr. Mundo Plasencia MD Referring Provider Active Start: September 20, 2024 End: September 20, 2024 RUBEN Yu Attending Provider Active St art: September 20, 2024 End: September 20, 2024 Team Status: Inactive Member Role/Relationship Status Dates Dr. Mundo Plasencia MD Primary Care Provider Active Start: September 20, 2024 End: September 20, 2024 RUBEN Yu Attending Provider Active St art: September 20, 2024 End: September 20, 2024 RUBEN Yu Referring Provider Active St art: September 20, 2024 End: September 20, 2024 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 Relationship Specialty Start Date End Date Mundo Plasencia MD [address] [place], [place] [id number] PCP - General Internal Medicine 12/28/19 Chapis Dickens COMMERCIAL PEST CONTROL REPRESENTATIVE.PLUMBING MANAGER [address] [facility] [place], [place] [address] Clinical Dietetic Technician Internal Medicine 03/07/24 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 Relationship Specialty Start Date End Date Mundo Plasencia MD [address] [facility] [place], [place] [address] PCP - General Internal Medicine 12/28/19 Chapis Dickens, COMMERCIAL PEST CONTROL REPRESENTATIVE.PLUMBING MANAGER [address] [facility] [place], [place] [address] Clinical Dietetic Technician Internal Medicine 03/07/24 Team Status: Inactive Member Role/Relationship Status Dates Dr. Mundo Plasencia MD Primary Care Provider Active Start: September 29, 2024 End: September 29, 2024 RUBEN Yu Attending Provider Active St art: September 29, 2024 End: September 29, 2024 RUBEN Yu Referring Provider Active St art: September 29, 2024 End: September 29, 2024 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 Relationship Specialty Start Date End Date Mundo Plasencia MD [address] [facility] [place] [address] PCP - General Internal Medicine 12/28/19 Chapis Dickens, COMMERCIAL PEST CONTROL REPRESENTATIVE.PLUMBING MANAGER [address] [facility] [place] [address] Clinical Dietetic Technician Internal Medicine 03/07/24 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 Relationship Specialty Start Date End Date Mundo Plasencia MD [address] [facility] [place] [address] PCP - General Internal Medicine 12/28/19 Chapis Dickens, COMMERCIAL PEST CONTROL REPRESENTATIVE.PLUMBING MANAGER [address] [facility] [place] [address] Clinical Dietetic Technician Internal Medicine 03/07/24 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 Relationship Specialty Start Date End Date Mundo Plasencia MD [address] [place] [address] PCP - General Internal Medicine 12/28/19 Chapis Dickens, COMMERCIAL PEST CONTROL REPRESENTATIVE.PLUMBING MANAGER [address] [place] [address] Clinical Dietetic Technician Internal Medicine 03/07/24 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 Relationship Specialty Start Date End Date Mundo Plasencia MD [address] [place] [address] PCP - General Internal Medicine 12/28/19 Chapis Dickens, COMMERCIAL PEST CONTROL REPRESENTATIVE.PLUMBING MANAGER [address] [place] [address] Clinical Dietetic Technician Internal Medicine 03/07/24 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 Relationship Specialty Start Date End Date Mundo Plasencia MD [address] [place] [address] PCP - General Internal Medicine 12/28/19 Chapis Dickens, COMMERCIAL PEST CONTROL REPRESENTATIVE.PLUMBING MANAGER [address] [place] [address] Clinical Dietetic Technician Internal Medicine 03/07/24 Team Status: Inactive Member Role/Relationship Status Dates Dr. Mundo Plasencia MD Primary Care Provider Active Start: October 31, 2024 End: October 31, 2024 Dr. Mundo Plasencia MD Referring Provider Active Start: October 31, 2024 End: October 31, 2024 RUBEN Yu Attending Provider Active St art: October 31, 2024 End: October 31, 2024 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 Relationship Specialty Start Date End Date Mundo Plasencia MD [address] [place] [address] PCP - General Internal Medicine 12/28/19 Chapis Dickens, COMMERCIAL PEST CONTROL REPRESENTATIVE.PLUMBING MANAGER [address] [place] [address] Clinical Dietetic Technician Internal Medicine 03/07/24 Team Status: Active Member Role/Relationship Status Dates Dr. Mundo Plasencia MD Primary Care Provider Active Start: October 31, 2024 RUBEN Yu Attending Provider Active St art: October 31, 2024 RUBEN Yu Referring Provider Active St art: October 31, 2024 Team Status: Inactive Member Role/Relationship Status Dates Dr. Mundo Plasencia MD Primary Care Provider Active Start: November 02, 2024 End: November 02, 2024 Dr. Mundo Plasencia MD Referring Provider Active Start: November 02, 2024 End: November 02, 2024 RUBEN Stephenson Attending Provider Active Start: November 02, 2024 End: November 02, 2024 Team Status: Inactive Member Role/Relationship Status Dates Dr. Mundo Plasencia MD Primary Care Provider Active Start: October 31, 2024 End: October 31, 2024 RUBEN Yu Attending Provider Active St art: October 31, 2024 End: October 31, 2024 RUBEN Yu Referring Provider Active St art: October 31, 2024 End: October 31, 2024 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 Relationship Specialty Start Date End Date Mundo Plasencia [address] [place] [address] PCP - General Internal Medicine 05/27/24 Henrietta Roche, XAVIER Registered Nurse Scrap Hoist Operator Manager 08/07/24 Team Status: Active Member Role/Relationship Status Dates Dr. Mundo Plasencia MD Primary Care Provider Active Team Status: Inactive Member Role/Relationship Status Dates Dr. Mundo Plasencia MD Primary Care Provider Active Start: November 17, 2024 End: November 17, 2024 RUBEN Stephenson Attending Provider Active Start: November 17, 2024 End: November 17, 2024 RUBEN Stephenson Referring Provider Active Start: November 17, 2024 End: November 17, 2024 Goals (unrecognized section and content) Goals may be documented in a n alternate sectionGoals may be documented in an alternate sectionGoals may be documented in an alternate sectionGoals may be documented in an alternate sectionGoals may be documented in an alternate sectionGoals may be documented in an alternate sectionGoals may be documented in an alternate sectionGoals may be documented in an alternate section Scheduled Active and Recently Administ ered Medications (unrecognized section and content) Medication Order 06/06/2024 06/07/2024 06/08/2024 diazePAM (Valium) tablet 5 mg 5 mg, Oral, Once, On Thu06/08/24 at 0845, For 1 dose, Preprocedure 0845 (Canceled Entry - Provider: Automatic Discharge Provider - Comment: Automatically canceled at discontinue of medication order) diphenhydrAMINE (BENADryl) tablet/capsule 25 mg 25 mg, Oral, Once, On Thu06/08/24 at 0845, For 1 dose, Preprocedure, One hour prior to procedure if allergic to dye. 0845 (Canceled Entry - Provider: Automatic Discharge Provider - Comment: Automatically canceled at discontinue of medication order) fentaNYL (Sublimaze) injection 25 mcg (COMPLETED) 25 mcg, IntraVENous, Once, On Thu06/08/24 at 0930, For 1 dose 0926 (Given - Provid er: Aj Fong RN) midazolam (Versed) injection 1 mg (COMPLETED) 1 mg, IntraVENous, Once, On Thu06/08/24 at 0930, For 1 dose 0927 (Given - Provid er: Aj Fong RN) sodium chloride 0.9% (NS) flush 5-40 mL 5-40 mL, IntraVENous, Every 12 hours, First dose on Thu06/08/24 at 0845, Preprocedure, For Line Patency: Peripheral IV = 5 mL; Midline or Central Line = 10 mL/lumen. If following IV push medication, administer flush at same rate as the IV push. Flush volume is determined by type of infusion therapy being given. For non-viscous solutions use: Peripheral IV = 5 mL Midline or Central Line = 10 mL/lumen For viscous solutions (i.e. blood components, parenteral nutrition, contrast media, or after obtaining blood sample) use: Peripheral IV = 10 mL Midline or Central Line = 20 mL/lumen 0845 (Canceled Entry - Provider: Automatic Discharge Provider - Comment: Automatically canceled at discontinue of medication order) Continuous Medication Order 06/06/2024 06/07/2024 06/08/2024 sodium chloride 0.9 % infusion 30 mL/hr, IntraVENous, Continuous, Starting on Thu06/08/24 at 0845, Preprocedure 0845 (Canceled Entry - Provider: Automatic Discharge Provider - Comment: Automatically canceled at discontinue of medication order) PRN Medication Order 06/06/2024 06/07/2024 06/08/2024 fentaNYL (Sublimaze) injection (CANCELED) IntraVENous, As needed, Starting on Thu06/08/24 at 1000, Intraprocedure 1000 (Given - Provid er: Keesha Loera RN)1049 (Given - Provider: Keesha Loera RN) heparin injection (CANCELED) IntraVENous, As needed, Starting on Thu06/08/24 at 1027, Intraprocedure 1027 (Given - Provid er: Keesha Loera RN) iopamidol (Isovue-300) 61 % injection (CANCELED) As needed, Starting on Thu06/08/24 at 1059, Intraprocedure 1059 (Given - Provid er: Moises Sutton MD) lidocaine (Xylocaine) 1 % injection (CANCELED) As needed, Starting on Thu06/08/24 at 1003, Intraprocedure 1003 (Given - Provid er: Amelia Chao MD)1004 (Given - Provider: Amelia Chao MD)1046 (Given - Provider: Amelia Chao MD) midazolam (Versed) injection (CANCELED) IntraVENous, As needed, Starting on Thu06/08/24 at 1040, Intraprocedure 1040 (Given - Provid er: Keesha Loera RN) NITROGLYCERIN 100 MCG / ML IN D5W VIAL FOR INTRA-OP/INTRAPROCEDURE USE (CANCELED) As needed, Starting on Thu06/08/24 at 1018, Intraprocedure 1018 (Given - Provid er: Moises Sutton MD) sodium chloride 0.9% (NS) flush 5-40 mL 5-40 mL, IntraVENous, PRN, line care, After every IV line use, Starting on Thu06/08/24 at 0844, Preprocedure, For Line Patency: Peripheral IV = 5 mL; Midline or Central Line = 10 mL/lumen. If following IV push medication, administer flush at same rate as the IV push. Flush volume is determined by type of infusion therapy being given. For non-viscous solutions use: Peripheral IV = 5 mL Midline or Central Line = 10 mL/lumen For viscous solutions (i.e. blood components, parenteral nutrition, contrast media, or after obtaining blood sample) use: Peripheral IV = 10 mL Midline or Central Line = 20 mL/lumen verapamil (Isoptin) injection (CANCELED) As needed, Starting on Thu06/08/24 at 1018, Intraprocedure 1018 (Given - Provid er: Moises Sutton MD) Scheduled Medication Order 08/14/2024 08/15/2024 08/16/2024 acetaminophen (Tylenol) tablet 1,000 mg 1,000 mg, Oral, Every 8 hours, First dose on Thu08/03/24 at 1600, Recovery & On Unit 0034 (Given - Provider: Dre Pantoja RN)0903 (Given - Provider: Lexis oLve RN)1704 (Given - Provider: Lexis Love RN) 0044 (Given - Provider: Dre Pantoja RN)0801 (Given - Provider: Cheyenne Purdy RN)1553 (Not Given - Provider: Lindsey Magallanes RN - Reason: Patient/family refused)2309 (Not Given - Provider: Meghna Batres RN - Reason: Patient/family refused) 0834 (Not Given - Provider: Melina Bae RN - Reason: Patient/family refused) amiodarone (Pacerone) tablet 400 mg 400 mg, Oral, 2 times daily, First dose (after last modification) on Michaela 08/11/24 at 0900, Recovery & On Unit 0903 (Given - Provider: Lexis Love RN)2023 (Given - Provider: Dre Pantoja, XAVIER) 08 (Given - Provider: Cheyenne Purdy, RN)2021 (Given - Provider: Meghna Batres, RN) 0833 (Given - Provider: Melina Bae, XAVIER) amLODIPine (Norvasc) tablet 5 mg 5 mg, Oral, Daily, First dose (after last modification) on Thu08/11/24 at 0900, Recovery & On Unit, On hold since Thu08/16/2024 at 0638 until manually unheld 0903 (Given - Provider: Lexis Love RN) 08 (Given - Provider: Cheyenne Purdy RN) 0638 (Held by provider - Provider: GARY Farrell PLUMBING MANAGER - Reason: Other)0900 (Dose Auto Held - Provider: Russel Nunez APRN [facility])1538 (Unheld by provider - Provider: Automatic Discharge Provider) apixaban (Eliquis) tablet 5 mg 5 mg, Oral, 2 times daily, First dose on Thu08/11/24 at 1100, Anticoagulant 0900 (Dose Auto Held - Provider: Keesha Jessica COMMERCIAL PEST CONTROL REPRESENTATIVE [facility])2100 (Dose Auto Held - Provider: Keesha Jessica COMMERCIAL PEST CONTROL REPRESENTATIVE [facility]) 0900 (Dose Auto Held - Provider: Keesha Jessica APRN [facility])2100 (Dose Auto Held - Provider: Keesha Jessica APRN [facility]) 0638 (Unheld by provider - Provider: Russel Nunez APRN [facility])0833 (Given - Provider: Melina Bae, XAVIER) asenapine (Saphris) SL tablet 5 mg 5 mg, SubLINGual, Nightly, First dose on Thu08/08/24 at 2100, Place under the tongue and allow to disintegrate. Do not crush, chew, or swallow. Avoid eating or drinking for at least 10 minutes after administration. 2026 (Given - Provider: Dre Pantoja, XAVIER) 2021 (Given - Provider: Meghna Batres, XAVIER) bumetanide (Bumex) injection 2 mg (CANCELED) 2 mg, IntraVENous, Administer over 1 Minutes, 2 times daily, First dose (after last modification) on Thu08/14/24 at 1500, Recovery & On Unit 1506 (Given - Provider: Lexis Love, RN) 0541 (Given - Provider: Dre Pantoja RN)1455 (Given - Provider: Lindsey Magallanes RN) 0530 (Given - Provider: Meghna Batres, XAVIER) bumetanide (Bumex) tablet 1 mg 1 mg, Oral, 2 times daily, First dose on Thu08/16/24 at 1500 1500 (Canceled Entry - Provider: Automatic Discharge Provider - Comment: Automatically canceled at discontinue of medication order) doxazosin (Cardura) tablet 2 mg (CANCELED) 2 mg, Oral, Daily, First dose on Thu08/05/24 at 0900 0903 (Given - Provider: Lexis Love RN) 0801 (Given - Provider: Cheyenne Purdy RN) doxazosin (Cardura) tablet 4 mg 4 mg, Oral, Daily, First dose (after last modification) on Thu08/16/24 at 0900 0833 (Given - Provider: Melina Bae, XAVIER) guaiFENesin (Mucinex) 12 hr tablet 600 mg 600 mg, Oral, 2 times daily, First dose on Thu08/09/24 at 0900, Administer with plenty of fluids to ensure proper action. Do not crush, chew, or split. 0904 (Given - Provider: Lexis Love RN)2024 (Given - Provider: Dre Pantoja, XAVIER) 0801 (Given - Provider: Cheyenne Purdy, XAVIER)2021 (Given - Provider: Meghna Batres, XAVIER) 0840 (Not Given - Provider: Melina Bae, XAVIER - Reason: Patient/family refused) heparin injection 5,000 Units (CANCELED) 5,000 Units, SubCUTAneous, 2 times daily, First dose on Thu08/15/24 at 1015 1020 (Given - Provider: Cheyenne Purdy RN)2021 (Given - Provider: Meghna Batres, XAVIER) insulin glargine (Lantus) injection 25 Units (CANCELED) 25 Units, SubCUTAneous, Every 24 hours, First dose (after last modification) on Thu08/14/24 at 1000, Do not hold 0904 (Given - Provider: Lexis Love RN - Comment: Glucose 118) insulin glargine (Lantus) pen 12 Units 12 Units, SubCUTAneous, Every morning, First dose (after last modification) on Thu08/17/24 at 0900, For self admin training/reinforcement insulin glargine (Lantus) pen 22 Units (CANCELED) 22 Units, SubCUTAneous, Every morning, First dose (after last modification) on Thu08/16/24 at 0900, For self admin training/reinforcement 0831 (Given - Provider: Melina Bae RN) insulin glargine (Lantus) pen 25 Units (CANCELED) 25 Units, SubCUTAneous, Every morning, First dose on Thu08/14/24 at 0915, For self admin training/reinforcement 0936 (Not Given - Provider: Lexis Love RN - Reason: Other - Comment: previously given at 09) 0933 (Given - Provider: Cheyenne Purdy RN) Insulin Lispro (Humalog) injection 0-12 Units 0-12 Units, SubCUTAneous, 3 times daily with meals, First dose on Thu08/16/24 at 0800, Moderate dose Sliding scale: <150 = 0 unit 151-200 = 2 units 201-250 = 4 units 251-300 = 6 units 301-350 = 8 units 351-400 = 10 units > 400 = 12 units and call endocrine 0836 (Not Given - Provider: Melina Bae RN - Reason: Order parameters not met)1141 (Not Given - Provider: Melina Bae RN - Reason: Order parameters not met) Insulin Lispro (Humalog) injection 6 Units (CANCELED) 6 Units, SubCUTAneous, 3 times daily with meals, First dose (after last modification) on Thu08/14/24 at 0800, Hold if NPO or not eating 903 (Given - Provider: Lexis Love RN - Comment: Glucose 118) insulin lispro (HumaLOG) pen injection 0-6 Units (CANCELED) 0-6 Units, SubCUTAneous, 3 times daily with meals, First dose on Thu08/14/24 at 1200, Low dose Sliding scale: <150 = 0 unit 151-200 = 1 unit 201-250 = 2 units 251-300 = 3 units 301-350 = 4 units 351-400 = 5 units > 400 = 6 units and call endocrine 1140 (Not Given - Provider: Lexis Love RN - Reason: Order parameters not met - Comment: Glucose 107)1705 (Given - Provider: Lexis Love RN - Comment: Glucose 211, pt education provided on self administration of inulin pen) 0741 (Not Given - Provider: Cheyenne Purdy RN - Reason: Order parameters not met)1331 (Not Given - Provider: Cheyenne Purdy RN - Reason: Order parameters not met)1659 (Not Given - Provider: Lindsey Magallanes RN - Reason: Order parameters not met) Lidocaine 4 % patch 1 patch 1 patch, Topical, Administer over 12 Hours, Daily, First dose on Thu08/03/24 at 1600, Recovery & On Unit, Cut in half and place on both sides of the incision. Patch may remain in place for up to 12 hours in any 24 hour period. 09 (Medication Applied - Provider: Lexis Love RN)2051 (Medication Removed - Provider: Dre Pantoja RN) 08 (Not Given - Provider: Cheyenne Purdy RN - Reason: Patient/family refused) 0840 (Not Given - Provider: Melina Bae RN - Reason: Patient/family refused) Lidocaine 4 % patch 1 patch 1 patch, TransDERmal, Administer over 12 Hours, Daily, First dose on Thu08/13/24 at 1315, Apply patch to Lower Back. Patch may remain in place for up to 12 hours in any 24 hour period. 0025 (Medication Removed - Provider: Dre Pantoja RN)09 (Medication Applied - Provider: Lexis Love RN)2051 (Medication Removed - Provider: Dre Pantoja RN) 0801 (Not Given - Provider: Cheyenne Purdy RN - Reason: Patient/family refused) 0841 (Not Given - Provider: Melina Bae RN - Reason: Patient/family refused) metFORMIN XR (Glucophage-XR) 24 hr tablet 500 mg 500 mg, Oral, 2 times daily with meals, First dose on Thu08/16/24 at 1700, Do not crush, chew, or split. metoprolol succinate XL (Toprol-XL) 24 hr tablet 100 mg 100 mg, Oral, Daily, First dose on Thu08/13/24 at 0900, Do not crush or chew. 0904 (Given - Provider: Lexis Love RN) 0806 (Given - Provider: Cheyenne Purdy, RN) 0833 (Given - Provider: Melina Bae, XAVIER) morphine injection 4 mg (COMPLETED) 4 mg, IntraVENous, Once, On 08/15/24 at 0145, For 1 dose, If oral and injectable narcotics ordered, use oral first and only use injectable if oral is ineffective or cannot take oral. Do Not give oral and injectable within 1 hour of each other unless specifically ordered. 0148 (Given - Provider: Dre Pantoja RN) pantoprazole (ProtoNix) EC tablet 40 mg 40 mg, Oral, Daily before breakfast, First dose on Thu08/06/24 at 0600, Do not crush, chew, or split. 0613 (Given - Provider: Dre Pantoja RN) 0704 (Given - Provider: Dre Pantoja RN) 0530 (Given - Provider: Meghna Batres, XAVIER) polyethylene glycol (PEG) 3350 (Miralax) packet 17 g 17 g, Oral, Daily, First dose on Thu08/03/24 at 1600, Recovery & On Unit, Bowel Regimen - for prevention of constipation. 0904 (Given - Provider: Lexis Love RN) 0801 (Given - Provider: Cheyenne Purdy RN) 0841 (Not Given - Provider: Melina Bae RN - Reason: Patient/family refused) potassium chloride CR (Klor-Con M10) ER tablet 40 mEq 40 mEq, Oral, Daily, First dose on Michaela 08/11/24 at 0900, Best given with food and plenty of water to minimize gastric irritation. Do not crush or chew. 0904 (Given - Provider: Lexis Love RN) 0800 (Given - Provider: Cheyenne Purdy, RN) 0832 (Given - Provider: Melina Bae, XAVIER) senna-docusate sodium (Senokot-S) 8.6-50 MG tablet 2 tablet 2 tablet, Oral, Nightly, First dose on Thu08/03/24 at 2100, Recovery & On Unit, Bowel Regimen - for prevention of constipation. 2023 (Given - Provider: Dre Pantoja RN) 2021 (Not Given - Provider: Meghna Batres RN - Reason: Patient/family refused) sulfamethoxazole-trime thoprim (Bactrim DS) 800-160 MG per tablet 1 tablet 1 tablet, Oral, Every 12 hours, First dose on Thu08/16/24 at 1000, For 7 days, Suspected Indication (Select all that apply): Urinary Tract Infection 1020 (Given - Provider: Melina Bae RN) Continuous Medication Order 08/14/2024 08/15/2024 08/16/2024 dexmedeTOMIDine in NS (Precedex) 400 mcg in 100 mL (4 mcg/mL) infusion () 0.1-1.5 mcg/kg/hr 148 kg (3.7-55.5 mL/hr), IntraVENous, Continuous, Starting on Thu08/14/24 at 2100, For 9 hours, If Titrate Infusion? is "No": Disregard instructions below. If Titrate infusion? is "Yes": Titrate in increments of 0.2 mcg/kg/hr no more frequently than every 30 minutes to goal of therapy. If after titration rate change patient exhibits adverse hemodynamic response, next titration rate change may be adjusted by one-half of the previous rate change. If patient fails sedation interruption, resume dexmedetomidine infusion at 50% of previous rate., Titrate Infusion? Yes, Initial Infusion Dose: 0.2 mcg/kg/hr, Goal of Therapy: RASS 0 to -1, Contact Provider if: New onset HR less than 50 bpm, New onset SBP less than 90 mmHg, Patient is receiving maximum dose and is not achieving the goal of therapy, If held outside of ordered parameters contact provider for further direction 2014 (New Bag - Provider: Dre Pantoja RN)2050 (Rate/Dose Change - Provider: Dre Pantoja RN)2109 (Rate/Dose Change - Provider: Dre Pantoja RN)214 (Rate/Dose Change - Provider: Dre Pantoja RN)221 (Rate/Dose Change - Provider: Dre Pantoja RN)224 (Rate/Dose Change - Provider: Dre Pantoja RN)2336 (New Bag - Provider: Dre Pantoja RN) 0039 (New Bag - Provider: Dre Pantoja RN)0324 (New Bag - Provider: Dre Pantoja RN)0547 (Stopped - Provider: Dre Pantoja RN) dexmedeTOMIDine in NS (Precedex) 400 mcg in 100 mL (4 mcg/mL) infusion (CANCELED) 0.1-1.5 mcg/kg/hr 148 kg (3.7-55.5 mL/hr), IntraVENous, Continuous, Starting on 08/15/24 at 2000, For 9 hours, If Titrate Infusion? is "No": Disregard instructions below. If Titrate infusion? is "Yes": Titrate in increments of 0.2 mcg/kg/hr no more frequently than every 30 minutes to goal of therapy. If after titration rate change patient exhibits adverse hemodynamic response, next titration rate change may be adjusted by one-half of the previous rate change. If patient fails sedation interruption, resume dexmedetomidine infusion at 50% of previous rate., Titrate Infusion? Yes, Initial Infusion Dose: 0.2 mcg/kg/hr, Goal of Therapy: RASS 0 to -1, Contact Provider if: New onset HR less than 50 bpm, New onset SBP less than 90 mmHg, Patient is receiving maximum dose and is not achieving the goal of therapy, If held outside of ordered parameters contact provider for further direction 1999 (New Bag - Provider: Meghna Batres RN)2208 (Rate/Dose Change - Provider: Meghna Batres RN) 015 (New Bag - Provider: Meghna Batres RN)0407 (Stopped - Provider: Meghna Batres RN) PRN Medication Order 08/14/2024 08/15/2024 08/16/2024 calcium gluconate 2000 mg in 100 mL IVPB premix 2,000 mg, IntraVENous, at 50 mL/hr, Administer over 2 Hours, PRN, ionized calcium less than 4.3, Starting on 08/03/24 at 1504, Recovery & On Unit, Give 2000 mg for ionized calcium less than 4.3 premix bag dextrose 5 % infusion 100 mL/hr, IntraVENous, PRN, Low Blood Sugar, Starting on Michaela 08/04/24 at 0230, Blood glucose less than 70 mg/dL and patient NOT ALERT or NPO and does not have IV access., After administration, attempt intravenous access and start D5W at 100 mL/hr. Repeat blood glucose in 15 minutes x2 and notify provider. dextrose 50 % solution 12.5 g 12.5 g, IntraVENous, PRN, low blood sugar, Starting on Thu08/04/24 at 0230, Blood glucose less than 70 mg/dL and patient NOT ALERT or NPO., If patient does not respond within 5 minutes, repeat dose x1. Start D5W at 100 mL/hour until ordering provider can be reached. Repeat blood glucose in 15 minutes. If blood glucose is less than 70 mg/dL, repeat treatment and recheck blood glucose in 15 minutes x2. If using Glucostabilizer, dose as instructed per system. glucagon (human recombinant) injection 1 mg 1 mg, IntraMUSCular, PRN, low blood sugar, Blood glucose less than 70 mg/dL and patient NOT ALERT or NPO and does not have IV access., Starting on Thu08/04/24 at 0230, After administration, attempt intravenous access and start D5W at 100 mL/hr. Repeat blood glucose in 15 minutes x2 and notify provider. glucose oral gel 15 g 15 g, Oral, As needed, low blood sugar, Starting on Thu08/04/24 at 0230, If blood glucose less than 50 mg/dL and patient ALERT and NOT NPO, give 2 tubes glucose gel. If blood glucose less than 70 mg/dL and patient ALERT and NOT NPO, give 1 tube glucose gel. Repeat blood glucose in 15 minutes. If blood glucose is less than 70 mg/dL, repeat treatment and recheck blood glucose in 15 minutes x2 and notify provider. ipratropium-albuterol (Duo-Neb) 0.5-2.5 mg/3 mL nebulizer solution 3 mL 3 mL, Nebulization, 3 times daily PRN, wheezing, shortness of breath, Starting on Thu08/03/24 at 1504, Recovery & On Unit magnesium hydroxide (Milk of Magnesia) 400 MG/5ML suspension 30 mL 30 mL, Oral, Daily PRN, constipation, Starting on Thu08/03/24 at 1504, Recovery & On Unit, 1st line for treatment of constipation - give scheduled if no bowel movement in past 24 hours magnesium sulfate IVPB 4,000 mg(Linked Group 1) 4,000 mg, IntraVENous, at 25 mL/hr, Administer over 4 Hours, As needed, Per Magnesium Replacement Protocol, Starting on Thu08/03/24 at 1504, Recovery & On Unit, Mg Lab Replacement Action 1.4-1.6 2 gram IVPB x 1 doses 1.0-1.3 4 gram IVPB x 1 doses Less than 1.0 CALL PHYSICIAN and 4 gram IVPB x 1 doses Infuse at 1 gram/hr. Repeat Mag level next AM. Not for use in Patients with CrCl less than 30 mL/min. magnesium sulfate IVPB premix 2,000 mg(Linked Group 1) 2,000 mg, IntraVENous, at 25 mL/hr, Administer over 2 Hours, As needed, Per Magnesium Replacement Protocol, Starting on Thu08/03/24 at 1504, Recovery & On Unit, Mg Lab Replacement Action 1.4-1.6 2 gram IVPB x 1 doses 1.0-1.3 4 gram IVPB x 1 doses Less than 1.0 CALL PHYSICIAN and 4 gram IVPB x 1 doses Infuse at 1 gram/hr. Repeat Mag level next AM. Not for use in Patients with CrCl less than 30 mL/min. melatonin tablet 5 mg 5 mg, Oral, Nightly PRN, sleep, Starting on Thu08/05/24 at 0008 naloxone (Narcan) injection 0.4 mg 0.4 mg, IntraVENous, Every 5 min PRN, opioid reversal, respiratory depression, Starting on Thu08/03/24 at 1839, +++ For RR <10, pinpoint pupils, over sedation for opioid reversal - MUST notify guest relations coordinator provider immediately after first dose, may give IM or SQ if no IV access +++ ondansetron (Zofran) injection 4 mg(Linked Group 2) 4 mg, IntraVENous, Every 6 hours PRN, nausea, vomiting, Starting on Thu08/03/24 at 1504, Recovery & On Unit, 1st Line. Give IV if patient is unable to take orally. If inadequate response within 60 minutes, proceed to next-line agent or contact provider if no further options ordered. ondansetron ODT (Zofran-ODT) disintegrating tablet 4 mg(Linked Group 2) 4 mg, Oral, Every 8 hours PRN, nausea, vomiting, Starting on Thu08/03/24 at 1504, Recovery & On Unit, 1st Line. If inadequate response within 60 minutes, proceed to next-line agent or contact provider if no further options ordered. Patient should allow tablet to dissolve on tongue. Do not remove from blister pack until just before administering. oxyCODONE (Roxicodone) immediate release tablet 10 mg(Linked Group 3) 10 mg, Oral, Every 4 hours PRN, severe pain (7-10), Starting on Thu08/03/24 at 1504, Recovery & On Unit 1553 (See Alternative - Provider: Lindsey Magallanes, XAVIER) oxyCODONE (Roxicodone) immediate release tablet 5 mg(Linked Group 3) 5 mg, Oral, Every 4 hours PRN, moderate pain (4-6), Starting on Thu08/03/24 at 1504, Recovery & On Unit 1553 (Given - Provider: Lindsey Magallanes, XAVIER) potassium chloride 40 mEq in NS 500 mL IVPB (premix)(Linked Group 4) 40 mEq, IntraVENous, at 125 mL/hr, Administer over 4 Hours, 3 times daily PRN, hypokalemia, Starting on Thu08/03/24 at 1504, Recovery & On Unit, For Peripheral Line Use. K Lab Replacement Action 3.1-3.5 20 mEq IVPB x 1 doses 2.7-3.0 40 mEq IVPB x 1 doses less than 2.7 CALL PROVIDER and administer 40 mEq IVPB x 1 dose Infuse at 10 mEq/hr Repeat Potassium lab 1 hour after administration. Protocol not for use in Patients with CrCl less than 30mL/min potassium chloride CR (Klor-Con M10) ER tablet 20 mEq 20 mEq, Oral, PRN, Hypokalemia, Starting on Michaela 08/04/24 at 0000, Recovery & On Unit, If patient is intubated or not tolerating PO use PRN IV replacement protocol Potassium level Dose LESS than 3.0 = Give 20 mEq x 3 doses 3.0-3.6 = Give 20 mEq x 2 doses Recheck potassium level 2 hour after replacement given, place order for lab under [place] If potassium level LESS than 3 after 1st replacement: Call surgeon. Do not crush or break. Do not crush or chew. 0337 (Given - Provider: Dre Pantoja, XAVIER)0339 (Given - Provider: Dre Pantoja RN) Potassium Chloride in NaCl IVPB 20 mEq(Linked Group 4) 20 mEq, IntraVENous, Administer over 2 Hours, Every 8 hours PRN, hypokalemia, Starting on Thu08/03/24 at 1504, Recovery & On Unit, For Peripheral Line Use K Lab Replacement Action 3.1-3.5 20 mEq IVPB x 1 doses 2.7-3.0 40 mEq IVPB x 1 doses less than 2.7 CALL PROVIDER and administer 40 mEq IVPB x 1 dose Infuse at 10 mEq/hr Repeat Potassium lab 1 hour after administration. Protocol not for use in Patients with CrCl less than 30mL/min potassium chloride IVPB 20 mEq(Linked Group 4) 20 mEq, IntraVENous, at 50 mL/hr, Administer over 1 Hours, 3 times daily PRN, hypokalemia, Starting on Thu08/03/24 at 1504, Recovery & On Unit, For Central Line Use Only K Lab Replacement Action 3.1-3.5 20 mEq IVPB x 2 doses 2.7-3.0 20 mEq IVPB x 2 doses (40 mEq Total) less than 2.7 CALL PROVIDER and administer 20 mEq IVPB x 2 doses (40 mEq Total) Infuse at 20 mEq/hr Repeat Potassium lab 1 hour after final administration. Protocol not for use in Patients with CrCl less than 30mL/min For central line administration only. Linked Groups Order Group 1: magnesium sulfate IVPB premix 2,000 mgJump to med 2,000 mg, IntraVENous, at 25 mL/hr, Administer over 2 Hours, As needed, Per Magnesium Replacement Protocol, Starting on Thu08/03/24 at 1504, Recovery & On Unit, Mg Lab Replacement Action 1.4-1.6 2 gram IVPB x 1 doses 1.0-1.3 4 gram IVPB x 1 doses Less than 1.0 CALL PHYSICIAN and 4 gram IVPB x 1 doses Infuse at 1 gram/hr. Repeat Mag level next AM. Not for use in Patients with CrCl less than 30 mL/min. Or magnesium sulfate IVPB 4,000 mgJump to med 4,000 mg, IntraVENous, at 25 mL/hr, Administer over 4 Hours, As needed, Per Magnesium Replacement Protocol, Starting on Thu08/03/24 at 1504, Recovery & On Unit, Mg Lab Replacement Action 1.4-1.6 2 gram IVPB x 1 doses 1.0-1.3 4 gram IVPB x 1 doses Less than 1.0 CALL PHYSICIAN and 4 gram IVPB x 1 doses Infuse at 1 gram/hr. Repeat Mag level next AM. Not for use in Patients with CrCl less than 30 mL/min. Group 2: ondansetron ODT (Zofran-ODT) disintegrating tablet 4 mgJump to med 4 mg, Oral, Every 8 hours PRN, nausea, vomiting, Starting on Thu08/03/24 at 1504, Recovery & On Unit, 1st Line. If inadequate response within 60 minutes, proceed to next-line agent or contact provider if no further options ordered. Patient should allow tablet to dissolve on tongue. Do not remove from blister pack until just before administering. Or ondansetron (Zofran) injection 4 mgJump to med 4 mg, IntraVENous, Every 6 hours PRN, nausea, vomiting, Starting on Thu08/03/24 at 1504, Recovery & On Unit, 1st Line. Give IV if patient is unable to take orally. If inadequate response within 60 minutes, proceed to next-line agent or contact provider if no further options ordered. Group 3: oxyCODONE (Roxicodone) immediate release tablet 5 mgJump to med 5 mg, Oral, Every 4 hours PRN, moderate pain (4-6), Starting on Thu08/03/24 at 1504, Recovery & On Unit Or oxyCODONE (Roxicodone) immediate release tablet 10 mgJump to med 10 mg, Oral, Every 4 hours PRN, severe pain (7-10), Starting on Thu08/03/24 at 1504, Recovery & On Unit Group 4: potassium chloride IVPB 20 mEqJump to med 20 mEq, IntraVENous, at 50 mL/hr, Administer over 1 Hours, 3 times daily PRN, hypokalemia, Starting on Thu08/03/24 at 1504, Recovery & On Unit, For Central Line Use Only K Lab Replacement Action 3.1-3.5 20 mEq IVPB x 2 doses 2.7-3.0 20 mEq IVPB x 2 doses (40 mEq Total) less than 2.7 CALL PROVIDER and administer 20 mEq IVPB x 2 doses (40 mEq Total) Infuse at 20 mEq/hr Repeat Potassium lab 1 hour after final administration. Protocol not for use in Patients with CrCl less than 30mL/min For central line administration only. Or Potassium Chloride in NaCl IVPB 20 mEqJump to med 20 mEq, IntraVENous, Administer over 2 Hours, Every 8 hours PRN, hypokalemia, Starting on Thu08/03/24 at 1504, Recovery & On Unit, For Peripheral Line Use K Lab Replacement Action 3.1-3.5 20 mEq IVPB x 1 doses 2.7-3.0 40 mEq IVPB x 1 doses less than 2.7 CALL PROVIDER and administer 40 mEq IVPB x 1 dose Infuse at 10 mEq/hr Repeat Potassium lab 1 hour after administration. Protocol not for use in Patients with CrCl less than 30mL/min Or potassium chloride 40 mEq in NS 500 mL IVPB (premix)Jump to med 40 mEq, IntraVENous, at 125 mL/hr, Administer over 4 Hours, 3 times daily PRN, hypokalemia, Starting on Thu08/03/24 at 1504, Recovery & On Unit, For Peripheral Line Use. K Lab Replacement Action 3.1-3.5 20 mEq IVPB x 1 doses 2.7-3.0 40 mEq IVPB x 1 doses less than 2.7 CALL PROVIDER and administer 40 mEq IVPB x 1 dose Infuse at 10 mEq/hr Repeat Potassium lab 1 hour after administration. Protocol not for use in Patients with CrCl less than 30mL/min FOR RECORDS PERTAINING TO PATIENTS WHO ARE [...] BE BASED ON THE PRIMARY CLINICAL RECORDS. [employer] provides no warranty or guarantee of the accuracy or completeness of information in this document.
--- NOTE | 2024-12-16 06:40 | PCM.HP.STD ---
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 Patient was referred from his primary care physician. Referral indicates it is for gastroesophageal reflux disease however patient he denies any heartburn, epigastric pain, nausea or vomiting. Chart review shows a declining hemoglobin since July 2024. He did have 1 episode of blood in his stool which resolved. Blood was bright red and he has had this in the past. He is on Eliquis. He denies black or tarry stools. He has no new or worsening shortness of breath, lightheadedness or dizziness. Last colonoscopy was about 3 years with recommendation for repeat in . He has never had an EGD. [facility] Medical History Loss of hearing Wears glasses Wears partial dentures Anxiety Alcohol use Diabetes Arthritis Bladder disease Prostate disease Low iron Restless legs DDD (degenerative disc disease), cervical Syncope Dietary restriction History of GI bleed History of diverticulitis CPAP (continuous positive airway pressure) dependence Leg cramps Shortness of breath on exertion History of transesophageal echocardiography (ENRIQUE) History of pain when walking History of edema History of echocardiogram Cardiology follow-up encounter Ascending aortic aneurysm Essential (primary) hypertension History of fractured rib Chronic back pain CVA (cerebral vascular accident) Paroxysmal supraventricular tachycardia Paroxysmal atrial fibrillation Marijuana abuse Nicotine abuse Home Medications Medication Instructions Recorded Last Taken Type doxazosin 4 mg tablet 8 mg PO DAILY 09/20/24 12/13/24 History metformin 500 mg tablet 500 mg PO BID 09/20/24 12/13/24 History amiodarone 100 mg tablet 100 mg PO BID #180 tabs 10/06/24 12/16/24 Rx amlodipine 5 mg tablet 5 mg PO DAILY #90 tabs 10/06/24 12/16/24 Rx metoprolol succinate 100 mg 100 mg PO QDAY #90 tabs 10/06/24 12/16/24 Rx tablet,extended release 24 hr torsemide 20 mg tablet 20 mg PO QAM #90 tabs 10/06/24 12/13/24 Rx famotidine 20 mg tablet 20 mg PO BID 10/31/24 12/16/24 History apixaban 5 mg tablet (Eliquis) 5 mg PO BID 12/15/24 12/13/24 History Allergy/AdvReac Type Severity Reaction Status Date / Time aspirin Allergy GI upset, Verified 12/15/24 09:11 hives Penicillins Allergy GI upset, Verified 12/15/24 09:11 hives tamsulosin (From Flomax) AdvReac Intermediate Other Verified 12/15/24 09:11 Family History Mother CAD (coronary artery disease) [place] in her 30's w/ coronary stents Father CAD (coronary artery disease) [place] in his 40's Surgical History History of cardiac catheterization History of right nephrectomy (1998) Hx of cholecystectomy (2014) History of back surgery Social History Smoking Status: Former smoker alcohol intake: current alcohol intake frequency: holidays/special occasions only Alcohol type: wine substance use type: marijuana ROS Constitutional Constitutional: Denies fatigue, fever(s), poor appetite, weight gain or weight loss Gastrointestinal Gastrointestinal: Denies belching, bloating, change in bowel habits, change in stool character, chewing difficulty, coffee ground emesis, constipation, cramping, diarrhea, dyspepsia, dysphagia, early satiety, excessive flatus, fecal incontinence, heartburn, hematemesis, hematochezia, hemorrhoids, loose stools, melena, nausea, odynophagia, rectal bleeding, tenesmus, vomiting or weight changes Vital Signs Vital Signs Vital Signs: 12/16/24 06:37 Respiratory Pattern Normal Physical Exam Const alert, oriented x3, no apparent distress and healthy appearing General Appearance: cooperative GI normal to inspection, nondistended, normoactive bowel sounds, soft to palpation, non-tender and non-distended Percussion: normal to percussion Rectal Exam: deferred Assessment & Plan Assessment/Plan (1) Anemia: PLAN: Assessment and Plan Assessment and Plan (1) Gastroesophageal reflux disease: (2) Anemia: Status: Acute Plan: Erickson is a 64-year-old male patient who is status post valve sparing aortic root and ascending aorta replacement graft, left atrial appendage exclusion along with intraoperative transesophageal echocardiogram in July 2024 at [facility]. Patient was referred to GI from his primary care provider with reason for referral being gastroesophageal reflux disease. On interview with the patient he denies any reflux related symptoms. During chart review, he was found to have a downtrending hemoglobin since July 2024. He denies symptoms of anemia or black or tarry stool. I recommended a fecal occult blood test however patient declined. CBC, iron, ferritin and iron binding capacity was ordered. He will have these done in 2 weeks. He was scheduled for upper endoscopy. Will also consider colonoscopy. Patient was advised to call our office if he experiences worsening fatigue, dizziness, shortness of breath or black/tarry stools. - EGD - Recommended stool testing and colonoscopy - Start PPI - Trend hemoglobin - Iron ferritin and iron binding capacity ordered -Advised to contact our office if he experiences symptoms of anemia Orders: Orders CBC W/Diff, Automated 13 Days D64.9 - Anemia, unspecified Iron+Iron Binding Capacity 13 Days D64.9 - Anemia, unspecified Ferritin 13 Days D64.9 - Anemia, unspecified
[2024-12-16] MEDS: Lactated Ringers 1,000 ML 15 ML IV (06:41)
--- NOTE | 2024-12-16 06:43 | PCM.PRE.AN2 ---
ASA Classification* ASA Classification ASA Classification: 3 Assessment & Plan Anesthesia* Anesthesia Assessment Anesthesia Assessment: Discussed sedation and/or anesthesia options, risks, benefits, and alternatives with patient/parents/legal guardian/POA. Questions invited. The patient/parents/legal guardian/POA seems to understand and agrees to proceed with anesthesia plan. Reviewed the physical assessment, medical history, allergy history and patient home medications list prior to surgery/procedure/anesthetic and documented any changes. Performed airway and anesthesia risk assessments. Anesthesia Type Anesthesia Type: MAC Anesthesia Focused Assessment* Temperature: 97.5 F Pulse Rate: 68 Blood Pressure: 142/84 Respiratory Rate: 20 Pulse Ox: 96 Airway Assessment Mouth opens: >3 cm Mallampati Score: II Labs Anesthesia Preop lab: CBC WBC, (4.4-11.0) 9.6 K/mm3 11/17/24, 11:51 RBC, (4.6-6.2) 4.03 M/mm3 L 11/17/24, 11:51 Hgb, (13.0-16.5) 10.4 g/dL L 11/17/24, 11:51 Hct, (40-54) 33.9 % L 11/17/24, 11:51 Plt Count, (150-450) 203 K/mm3 11/17/24, 11:51 CHEMISTRY Potassium, (3.3-5.1) 3.7 mmol/L 09/20/24, 11:21 Sodium, (133-145) 143 mmol/L 09/20/24, 11:21 Magnesium, (1.8-2.4) 2.1 mg/dL 08/02/15, 13:30 BUN, (4-19) 18 mg/dL 09/20/24, 11:21 Creatinine, (0.70-1.20) 1.13 mg/dL 09/20/24, 11:21 Glucose, (70-99) 128 mg/dL H 09/20/24, 11:21 TSH, (0.300-4.200) 4.500 uIU/mL H 09/20/24, 11:21 COAG Pre-Assessment Diagnosis/Proposed Procedure Planned Operative Procedure(s): EGD Anesthesia History Anesthesia History - dog licenser: Anesthesia History - dog licenser Hospitalization No 09/18/25 09:11 Any Problems With Anesthesia No 12/15/24 09:11 Cholinesterase deficiency No 12/15/24 09:11 You/Your Family Experience No 12/15/24 09:11 fever (hyperthermia) with Relationship Recent Exposure to Contagious No 12/16/24 06:37 Disease Does patient have nerve No 12/15/24 09:11 stimulator Patient instructed to have device shut off --Does patient have Pacemaker No 12/16/24 06:38 or ICD? When Was Last Pacemaker Check QUESTION #4 FULL TEXT: You/Your Family Experience fever (hyperthermia) with Anesthesia Last Oral Intake Last Oral intake: Last Oral Intake NPO since 00:00 12/16/24 06:38 Meds taken in AM with sips of water? Meds patient instructed to take am of surgery PONV PONV - dog licenser: PONV - dog licenser Female No 12/15/24 09:11 HX of Motion Sickness Yes 12/15/24 09:11 HX of N/V After Surgery No 12/15/24 09:11 Non-Smoker Yes 12/15/24 09:11 Duration of Surgery greater No 12/15/24 09:11 than 60 minutes Number of Risk Factors 2 12/15/24 09:11 PONV Score Moderate Risk 12/15/24 09:11 Height & Weight Height & Weight: Anesthesia: Height & Weight Height 6 ft 12/16/24 06:38 Weight: 148 kg 12/16/24 06:38 Body Mass Index (BMI) 44.2 12/16/24 06:38 Respiratory Assessment Respiratory Assessment - dog licenser: Respiratory Tract Infection Hx - dog licenser Hx Respiratory Tract Infection No 12/15/24 09:11 STOP Sleep Apnea STOP Sleep Apnea - dog licenser: STOP Sleep Apnea - dog licenser Hx Hypertension Yes: CONTROLLED WITH MEDS 12/15/24 09:11 Hx Sleep Apnea Yes 12/15/24 09:11 CPAP Yes: pt non-compliant 12/15/24 09:11 BIPAP No 12/15/24 09:11 Do you snore loudly (louder than talking or can be heard Do you often feel tired/ fatigued/ sleepy during daytime? Has anyone observed you stop breathing during sleep? STOP Results Positive 12/15/24 09:11 QUESTION #5 FULL TEXT : Do you snore loudly (louder than talking or can be heard through closed doors)? Tobacco Use History Tobacco Use History - dog licenser: Tobacco Use History - dog licenser Tobacco Use Smoking Status Former smoker 12/15/24 09:11 Hx Tobacco Use No 12/15/24 09:11 Years Smoking Packs Smoked per Day Smoking Cessation Date was Yes - quit smoking within 15 12/15/24 09:11 within the last 15 years years Hx Smoking Cessation Date Hx Smoking Cessation No 12/15/24 09:11 Counseling Hematologic Medial History Hematologic Hx - dog licenser: Hematologic Medical Hx - plastic surgery nurse Hx of Blood Transfusion No 12/15/24 09:11 Hx of Transfusion in last 3 No 12/15/24 09:11 Months Date of Last Transfusion (if within last 3 months) Ever experience any problems No 12/15/24 09:11 with transfusion(s)? 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 confused, unrespo /Reproduction History /Reproductive History - dog licenser: /Reproductive Hx- dog licenser Hx Now No 12/15/24 09:11 Gestational Age (in weeks): EDC: Hx Hx Para Hx Section SAB No 12/15/24 09:11 Active Medications Active Medications: Current Medications Generic Name Dose Route Start Last Admin Trade Name Freq PRN Reason Stop Dose Admin Lactated Ringer's 1,000 mls @ 15 mls/hr 12/16/24 06:30 12/16/24 06:41 IV 15 mls/hr .Q48H ROSALIE Administration PFSH Medical History Loss of hearing Wears glasses Wears partial dentures Anxiety Alcohol use Diabetes Arthritis Bladder disease Prostate disease Low iron Restless legs DDD (degenerative disc disease), cervical Syncope Dietary restriction History of GI bleed History of diverticulitis CPAP (continuous positive airway pressure) dependence Leg cramps Shortness of breath on exertion History of transesophageal echocardiography (ENRIQUE) History of pain when walking History of edema History of echocardiogram Cardiology follow-up encounter Ascending aortic aneurysm Essential (primary) hypertension History of fractured rib Chronic back pain CVA (cerebral vascular accident) Paroxysmal supraventricular tachycardia Paroxysmal atrial fibrillation Marijuana abuse Nicotine abuse Home Medications Medication Instructions Recorded Last Taken Type doxazosin 4 mg tablet 8 mg PO DAILY 09/20/24 12/13/24 History metformin 500 mg tablet 500 mg PO BID 09/20/24 12/13/24 History amiodarone 100 mg tablet 100 mg PO BID #180 tabs 10/06/24 12/16/24 Rx amlodipine 5 mg tablet 5 mg PO DAILY #90 tabs 10/06/24 12/16/24 Rx metoprolol succinate 100 mg 100 mg PO QDAY #90 tabs 10/06/24 12/16/24 Rx tablet,extended release 24 hr torsemide 20 mg tablet 20 mg PO QAM #90 tabs 10/06/24 12/13/24 Rx famotidine 20 mg tablet 20 mg PO BID 10/31/24 12/16/24 History apixaban 5 mg tablet (Eliquis) 5 mg PO BID 12/15/24 12/13/24 History Allergy/AdvReac Type Severity Reaction Status Date / Time aspirin Allergy GI upset, Verified 12/15/24 09:11 hives Penicillins Allergy GI upset, Verified 12/15/24 09:11 hives tamsulosin (From Flomax) AdvReac Intermediate Other Verified 12/15/24 09:11 Family History Mother CAD (coronary artery disease) [place] in her 30's w/ coronary stents Father CAD (coronary artery disease) [place] in his 40's Surgical History History of cardiac catheterization History of right nephrectomy (1998) Hx of cholecystectomy (2014) History of back surgery Social History Smoking Status: Former smoker alcohol intake: current alcohol intake frequency: holidays/special occasions only Alcohol type: wine substance use type: marijuana Review of Systems (Anesthesia) ROS Narrative System reviewed and no additional complaints, except as documented.
--- NOTE | 2024-12-16 07:15 | EGD_PTH ---
PATIENT: BOAZ RIGGS LOC: EN U#:[id number] AGE/SX: 64/M ROOM: RE12/16/[address]: Dr. Jakob Zayas DO : 1960 BED: DIS: 12/16/2024 SPEC #: [id number] RECD: 12/16/24 09:31 STATUS: BRUNILDA BERNARD #: [id number] LINDEN: 12/16/24 07:[address]: Jakob Zayas DEPT: SURGICAL PATHOLOGY RECD BY: Jose Loera ENTERED: 12/16/24 13:00 SP TYPE: EGD BIOPSY KRISTA DR: Dr. Mundo Fierro MD Tissues: A - Duodenum, NOS B - Gastric mucous membrane Procedures: Immunohistochemical Stains Surgery Specimen Level IV HEADER OPERATION: EGD and biopsy PRE-OP DIAGNOSIS: GERD and anemia TISSUE SUBMITTED: A- Submucosal lesion in duodenum, B- Gastric body biopsy MICROSCOPIC DIAGNOSIS A. Duodenum, "submucosal lesion", biopsy: * Normal villous architecture with no specific pathologic change. * No submucosa is observed in these sections therefore a lesion deep to the biopsy cannot be ruled out. B. Gastric body, biopsy: * Oxyntic mucosa with intestinal metaplasia and features of reactive gastropathy. * Negative for dysplasia. * IHC negative for H. pylori organisms. MICROSCOPIC DESCRIPTION Slides are reviewed. All matched controls reacted appropriately. These tests were developed and their performance characteristics determined by [facility]. They may not have been cleared or approved by the U.S. Food and Drug Administration. The FDA has determined that such clearance or approval is not necessary. The above immunohistochemical markers and/or special stains have been reviewed by the Pathologist. GROSS DESCRIPTION A. Received in fixative is one container labeled with the patient's name and designated "Submucosal lesion in duodenum." The specimen consists of two irregular fragments of light shell soft tissue, each measuring 0.4 cm. The specimen is totally submitted in one cassette. B. Received in fixative is one container labeled with the patient's name and designated "Gastric body biopsy." The specimen consists of multiple irregular fragments of light shell soft tissue that in aggregate measure 1.4 x 0.5 x 0.1 cm. The specimen is totally submitted in one cassette. TN 12/16/2024 CPT:89662k0,25640
--- NOTE | 2024-12-16 07:21 | PCM.POST.ANE ---
Anesthesia: Postop Eval I Current Vital Signs Temperature: 97.4 F Pulse Rate: 74 Blood Pressure: 139/84 Respiratory Rate: 16 Pulse Ox: 93 Oxygen Delivery Method: Room Air Assessment Airway patent: Yes Spontaneous unlabored respirations: Yes Mental status: Awake and Calm nausea: No Vomiting: No Anesthesia Complication: No Fluid Hydration Crystalloid volume administer (ml): 600 Total IV fluid infused: 600 Progress Note Anesthesia document: Postop Eval 1 completed: Yes
--- NOTE | 2024-12-16 07:49 | OP.PROVAT_ITS ---
12/16/2024 Mundo Fierro [address] [place] [address] Re : Upper GI endoscopy procedure for Erickson Garcia Dear Dr. Fierro This procedure was performed on Monday, December 16, 2024. My impressions and recommendations are as follows: Impressions : - Normal esophagus. - Gastric petechia(e). Biopsied. - Duodenal lipoma. Biopsied. Recommendations : - Discharge patient to home. - Resume previous diet. - Continue present medications. - Await pathology results. The presence of gastric petechiae, which are small pinpoint hemorrhages from minor bleeding capillaries in the stomach lining, can signify underlying issues such as gastric mucosal injury, inflammation, or problems with blood vessels or clotting. Potential causes and connections Aspirin and antiplatelet medications: The patient's history of CAD s/p PTCA strongly suggests they are taking antiplatelet medications, likely including aspirin, to prevent blood clots. Chronic use of nonsteroidal anti-inflammatory drugs (NSAIDs) or antiplatelet agents is a well-known cause of gastric mucosal injury, which can manifest as gastritis, erosions, and petechiae. Vascular disease and ischemia: The patient's underlying CAD indicates systemic vascular disease, which can potentially affect the gastric blood vessels. Conditions that cause gastric ischemia, including certain types of vasculitis or embolism, can present with petechiae and friable mucosa on endoscopy. Obesity-related inflammation: Obesity is a state of chronic low-grade systemic inflammation. Some research suggests an association between increased body mass index (BMI) and abnormal upper endoscopic findings like erosive gastritis, though the exact [id number] relationship needs more research. Systemic bleeding or coagulation disorders: Petechiae can be a sign of systemic bleeding issues, such as thrombocytopenia (low platelet count), platelet dysfunction, or other coagulation disorders. These may arise from medication side effects or other undiagnosed medical conditions, such as chronic liver disease (which can be a comorbidity with obesity). Portal hypertension: While not mentioned, portal hypertension, a complication of severe liver disease, can cause gastric changes known as portal hypertensive gastropathy, which may include petechial lesions. My findings are described in the full procedure note, which is enclosed. If I can be of further assistance, please feel free to contact me at . Sincerely, Jakob Zayas, 12/16/2024 7:48:55 AM This report has been signed electronically.
--- NOTE | 2024-12-16 07:49 | OP.EGD_ITS ---
Patient Name: Erickson Garcia Procedure Date: 12/16/2024 7:19 AM Date of : 1960 Age: 64 Procedure: Upper GI endoscopy Indications: Epigastric abdominal pain, Iron deficiency anemia Providers: Jakob Zayas DO Medicines: Monitored Anesthesia Care Patient Profile: This is a 64 year old male. Patient has symptoms of chronic abdominal distention and acute dyspepsia. Complications: No immediate complications. Procedure: Pre-Anesthesia Assessment: - Prior to the procedure, a History and Physical was performed, and patient medications and allergies were reviewed. The patient is competent. The risks and benefits of the procedure and the sedation options and risks were discussed with the patient. All questions were answered and informed consent was obtained. Patient identification and proposed procedure were verified by the physician in the pre-procedure area. Mental Status Examination: alert and oriented. Airway Examination: normal oropharyngeal airway and neck mobility. Respiratory Examination: clear to auscultation. CV Examination: normal. Prophylactic Antibiotics: The patient does not require prophylactic antibiotics. Prior Anticoagulants: The patient has taken no anticoagulant or antiplatelet agents. ASA Grade Assessment: II - A patient with mild systemic disease. After reviewing the risks and benefits, the patient was deemed in satisfactory condition to undergo the procedure. The anesthesia plan was to use monitored anesthesia care (MAC). Immediately prior to administration of medications, the patient was re-assessed for adequacy to receive sedatives. The heart rate, respiratory rate, oxygen saturations, blood pressure, adequacy of pulmonary ventilation, and response to care were monitored throughout the procedure. The physical status of the patient was re-assessed after the procedure. After obtaining informed consent, the endoscope was passed under direct vision. Throughout the procedure, the patient's blood pressure, pulse, and oxygen saturations were monitored continuously. The Endoscope was introduced through the mouth, and advanced to the third part of the duodenum. Small bowel enteroscopy was deemed necessary. The upper GI endoscopy was accomplished without difficulty. The patient tolerated the procedure well. Scope In: 7:26:27 AM Scope Out: 7:33:20 AM Total Procedure Duration Time 0 hours 6 minutes 53 seconds Findings: The examined esophagus was normal. Multiple diffuse petechiae were found in the entire examined stomach. Biopsies were taken with a cold forceps for histology. Verification of patient identification for the specimen was done. Estimated blood loss was minimal. Biopsies were taken with a cold forceps for Helicobacter pylori testing. Verification of patient identification for the specimen was done. There was a large lipoma in the second portion of the duodenum. Biopsies were taken with a cold forceps for histology. Verification of patient identification for the specimen was done. Estimated blood loss was minimal. Impression: - Normal esophagus. - Gastric petechia(e). Biopsied. - Duodenal lipoma. Biopsied. Recommendation: - Discharge patient to home. - Resume previous diet. - Continue present medications. - Await pathology results. The presence of gastric petechiae, which are small pinpoint hemorrhages from minor bleeding capillaries in the stomach lining, can signify underlying issues such as gastric mucosal injury, inflammation, or problems with blood vessels or clotting. Potential causes and connections Aspirin and antiplatelet medications: The patient's history of CAD s/p PTCA strongly suggests they are taking antiplatelet medications, likely including aspirin, to prevent blood clots. Chronic use of nonsteroidal anti-inflammatory drugs (NSAIDs) or antiplatelet agents is a well-known cause of gastric mucosal injury, which can manifest as gastritis, erosions, and petechiae. Vascular disease and ischemia: The patient's underlying CAD indicates systemic vascular disease, which can potentially affect the gastric blood vessels. Conditions that cause gastric ischemia, including certain types of vasculitis or embolism, can present with petechiae and friable mucosa on endoscopy. Obesity-related inflammation: Obesity is a state of chronic low-grade systemic inflammation. Some research suggests an association between increased body mass index (BMI) and abnormal upper endoscopic findings like erosive gastritis, though the exact [id number]-dzu-verdyt relationship needs more research. Systemic bleeding or coagulation disorders: Petechiae can be a sign of systemic bleeding issues, such as thrombocytopenia (low platelet count), platelet dysfunction, or other coagulation disorders. These may arise from medication side effects or other undiagnosed medical conditions, such as chronic liver disease (which can be a comorbidity with obesity). Portal hypertension: While not mentioned, portal hypertension, a complication of severe liver disease, can cause gastric changes known as portal hypertensive gastropathy, which may include petechial lesions. Procedure Code(s): --- Professional --- 73721, Small intestinal endoscopy, enteroscopy beyond second portion of duodenum, not including ileum; with biopsy, single or multiple CPT copyright 2021 [employer]. All rights reserved. The codes documented in this report are preliminary and upon motor grader operator review may be revised to meet current compliance requirements. Jakob Zayas DO 12/16/2024 7:48:55 AM This report has been signed electronically. Number of Addenda: 0 Note Initiated On: 12/16/2024 7:19 AM
--- NOTE | 2024-12-16 08:27 | PCM.POSTANE2 ---
Anesthesia Postop Eval I Sum Postop Eval Completion status Anesthesia document: Postop Eval 1 completed: Yes Anesthesia Postop Eval I Summary Anesthesia Postop Eval I Summary: Anesthesia Postop Eval I: Assessment Summary Airway patent Yes 12/16/24 07:43 [email or web address] Spontaneous unlabored Yes 12/16/24 07:43 [email or web address] respirations Mental status Awake,Calm 12/16/24 07:43 [email or web address] nausea No 12/16/24 07:43 [email or web address] Vomiting No 12/16/24 07:43 [email or web address] Anesthesia Postop Eval I: Fluid Summary Crystalloid volume administer 600 12/16/24 07:43 [email or web address] (ml) Colloids volume administered ( ml) Blood Product volume administered (ml) Total IV fluid infused 600 12/16/24 07:43 [email or web address] Anesthesia Postop Eval I: Summary Notes Anesthesia Complication No 12/16/24 07:43 [email or web address] Anesthesia Complication Comment: Post-operative progress note Anesthesia: Postop Eval II Evaluation Mental status: Awake Pain Level: 0 nausea: No Vomiting: No
== END 2024-12-16 08:19 | disposition home or self-care (01) ==
LOC: EN 06:12 → AC 06:14
PROVIDERS: PCP Internal Medicine; Referring Provider Internal Medicine; Visit Provider Internal Medicine Gastroenterology
PROC: 0DJ08ZZ Inspection of Upper Intestinal Tract, Via Natural or Artificial Opening Endoscopic (ICD-10-PCS; CPT 43235; principal; 2024-12-16 07:10)
DX: D64.9 Anemia, unspecified (principal); E11.9 Type 2 diabetes mellitus without complications; Z79.84 Long term (current) use of oral hypoglycemic drugs; Z79.01 Long term (current) use of anticoagulants; I45.0 Right fascicular block; Z86.73 Personal history of transient ischemic attack (TIA), and cerebral infarction without residual deficits; I10 Essential (primary) hypertension; Z79.899 Other long term (current) drug therapy; Z90.5 Acquired absence of kidney; Z90.49 Acquired absence of other specified parts of digestive tract; R23.3 Spontaneous ecchymoses; D17.5 Benign lipomatous neoplasm of intra-abdominal organs; K21.9 Gastro-esophageal reflux disease without esophagitis; K31.A0 Gastric intestinal metaplasia, unspecified; K31.9 Disease of stomach and duodenum, unspecified
CPT/HCPCS: 43239; 82962; 88305; 88342; 93005; J2405